=== PATIENT | female | born 1945 | race Caucasian/White ===

== ENCOUNTER 2024-03-06 12:58 | Outpatient (AMB) | payer OTHER, SELFPAY ==
[2024-03-06 13:16] VITALS: BP 69/43; PULSE 113; RESP 18; TEMP 33.3; O2SAT 98; BMI 25.0
--- NOTE | 2024-03-06 13:16 | GSCOFFNT_ITS ---
Vital Signs - [facility] 03/06/24 13:16 Height 1.65 m Height Method Stated Weight 68.039 kg Weight Measurement Method Estimated by Patient BMI 25.0 BP 69/43 L Blood Pressure Source Automatic Cuff Blood Pressure Location Right Upper Arm Position Sitting Respiration 18 Pulse 113 H Pulse Source Monitor Temp 91.9 F L Temp Source Temporal Artery Scan Pulse Oximetry (%) 98 Oxygen Delivery Method Room Air Med/Allergies Allergies & Medications Allergies haloperidol Allergy (Severe, Verified 03/06/24 13:18) Confusion naproxen Allergy (Intermediate, Verified 03/06/24 13:18) HIVES fluoxetine Allergy (Unknown, Verified 03/06/24 13:18) ANXIETY Medication Reconciliation aspirin 81 mg tablet,delayed release 81 mg PO QDAY 11/13/22 [History Confirmed 03/06/24] loratadine 10 mg tablet 10 mg PO QDAY 11/13/22 [History Confirmed 03/06/24] divalproex 250 mg tablet,delayed release (Depakote) 250 mg PO HS 12/18/23 [History Confirmed 03/06/24] donepezil 10 mg tablet 10 mg PO HS 12/18/23 [History Confirmed 03/06/24] ferrous sulfate 325 mg (65 mg iron) tablet (FeroSul) 325 mg PO BID 12/18/23 [History Confirmed 03/06/24] levothyroxine 137 mcg tablet 137 mcg PO QDAY 12/18/23 [History Confirmed 03/06/24] memantine 10 mg tablet 10 mg PO BID 12/18/23 [History Confirmed 03/06/24] montelukast 10 mg tablet 10 mg PO HS 12/18/23 [History Confirmed 03/06/24] multivitamin 1 tab PO QDAY 12/18/23 [History Confirmed 03/06/24] nortriptyline 10 mg capsule 10 mg PO HS 12/18/23 [History Confirmed 03/06/24] pantoprazole 40 mg tablet,delayed release 40 mg PO QDAY 01/19/24 [History Confirmed 03/06/24] bisacodyl 10 mg rectal suppository (Dulcolax (bisacodyl)) 10 mg CO Q72H PRN Constipation 01/24/24 [History Confirmed 03/06/24] calcium carbonate 500 mg PO Q6HR PRN Acid Reflux 01/24/24 [History Confirmed 03/06/24] lidocaine 5 % topical cream 1 applic topical Q12HR PRN Pain 01/24/24 [History Confirmed 03/06/24] magnesium hydroxide 400 mg/5 mL oral suspension (Milk of Magnesia) 30 ml PO Q72H PRN Constipation 01/24/24 [History Confirmed 03/06/24] ondansetron HCl 8 mg tablet 8 mg PO Q6HR PRN Nausea And Vomiting 01/24/24 [History Confirmed 03/06/24] oxycodone-acetaminophen 10 mg-325 mg tablet 1 tab PO Q4H PRN Severe Pain (Scale Score 7-10) 01/24/24 [History Confirmed 03/06/24] zolpidem 5 mg tablet (Ambien) 5 mg PO HS 01/24/24 [History Confirmed 03/06/24] acetaminophen 325 mg tablet 650 mg PO Q4H PRN Fever Or Pain 02/15/24 [History Confirmed 03/06/24] ascorbic acid (vitamin C) 500 mg tablet (Vitamin C) 500 mg PO BID 02/15/24 [History Confirmed 03/06/24] MA Intake Visit Data Collection New Patient or Established: Established Patient (seen at [facility] within 3 years) Seen by Clinical Staff ONLY (RN/MA): No Pain Present Currently: No Manager Functional Required: No PCP or OBGYN visit in last 3 months: Yes Hx Now: No Do You Feel Safe at Home: Yes Authorities Contacted: N/A Smoking Status Smoking Status: Never smoker Immunization / Flu Flu Vaccine in the Last 12 Months: No Flu Vaccine Exclusion Criteria: No Exclusion Criteria Past Medical History Past Medical History NEUROLOGIC: Positive Dementia, Meningitis and Migraine; Negative Neurological Disorders or Seizures CARDIAC: Positive Cardiac Disorders, Congestive Heart Failure and Hypertension RESPIRATORY: Positive Sleep Apnea; Negative Chronic Obstructive Pulmonary Disease (COPD) or Asthma GASTROINTESTINAL: Positive Pancreatitis, Gall Bladder Disease, Diverticulosis, Hiatal Hernia, Gastroesophageal Reflux Disease and Obesity GENITOURINARY: Negative Genitourinary Disorders or Renal Disease REPRODUCTIVE: Positive Previous Pregnancies; Negative Endometriosis or Pelvic Inflammatory Disease MUSCULOSKELETAL: Positive Fibromyalgia ENDOCRINE: Positive Endocrine Disorders, Hypothyroidism and Syndrome of Inappropriate Antidiuretic Hormone (SIADH); Negative Diabetes Mellitus Type 1 or Diabetes Mellitus Type 2 HEMATOLOGIC: Positive Anemia; Negative Blood Disorders or Sickle Cell Disease PSYCHO/SOCIAL: Positive Bipolar Disorder, Depression and Anxiety OTHER HISTORY: Positive Chicken Pox; Negative Autoimmune Disease, Blood Transfusions, Blood Transfusion Reaction, Anesthesia Reactions, Organ Transplant or Cancer Family History FAMILY HISTORY: Positive Family Psychiatric Problems and Family Surgery; Negative Family Neurologic Problems, Family Respiratory Disorders, Family Cardiac Disorders, Family Gastrointestinal Problems, Family Cancer or Family Anesthesia Reaction Surgical History SURGICAL: Positive Hysterectomy; Negative Thyroidectomy or Organ Transplant Social History SMOKING STATUS: Smoking status: Never smoker ALCOHOL: Alcohol Intake: Never HOUSING: Housing: House LIVES WITH: Lives With: Children HPI HPI Narrative 78F with HTN, CHF, hypothyroidism presenting with abdominal pain and CT findings concerning for a cecal mass, s/p exploratory laparotomy, right hemicolectomy and diverting ileostomy (due to fecal contamination) 12/19, here for planned follow u p. Pt was discharged from [facility] this past Wednesday and she has been doing well at home, denies any pain, is eating without any nausea although she felt her appetite was decreased at the SNF. The midline wound is no longer requiring any dressing. Daughter is caring for her and would like physical therapy if possible as she reports pt is weak and has difficulty ambulating ROS Review of Systems Systems Reviewed: All systems reviewed, normal except as documented Objective/Exam General General Appearance: alert, cooperative and well groomed Resp Respiratory exam: Absent respiratory distress Abdominal Abdominal exam: Present soft, incision (midline incision well-healed with no erythema, no fluctuance or tenderness) and other (ileostomy pink with minimal surrounding erythema); Absent distention or tenderness Assessment & Plan Diagnosis / Problem List (1) Mass of cecum: Status: Acute Assessment & Plan: 78F with HTN, CHF, hypothyroidism presenting with abdominal pain and CT findings concerning for a cecal mass, s/p exploratory laparotomy, right hemicolectomy and diverting ileostomy (due to fecal contamination) 12/19, with postop wound complications but now recovering well overall Plan: F/u CT AP After that will discuss ileostomy reversal (2) Ileostomy present: Status: Acute Assessment & Plan: Pt encouraged to drink more water/juice than ileostomy output Orders: Orders CT abdomen pelvis w con 2 Weeks Referrals Physical Therapy - Referral Advanced Care Planning Advance care planning discussed with:: patient Office Procedures GNS Level of Care Nursing/Assessment Patient Status: Established Patient Nursing Assessment/Reassesment: Medication Reconciliation, Update PMH in EMR and Vital Signs Coordination of Care: Complex Care and Chronic Disease 1-5, Education Complex Pt/Fam, Consent,records obtained, informed consent and Staff clarify orders Established Patient Charge Established Patient Point Assignment: 90 Established Patient Point Charge: Level 3 (80-115) Patient Portal Questionaires Social History Living Situation History Housing: House Tobacco History Smoking Status: Never smoker Alcohol History Alcohol Intake: Never Domestic Abuse History Do You Feel Safe at Home: Yes Review of Systems Report any current symptoms Only answer those that you have currently: Past Medical History Past Medical History Have you ever been diagnosed with any of the following: Neurological Problems Dementia: Yes Meningitis: Yes Seizures: No Migraine: Yes Cardiology Problems Congestive Heart Failure: Yes Hypertension: Yes Respiratory Problems Chronic Obstructive Pulmonary Disease (COPD): No Asthma: No Sleep Apnea: Yes Stomache/Intestinal Problems Pancreatitis: Yes Gall Bladder Disease: Yes Diverticulosis: Yes Hiatal Hernia: Yes Gastroesophageal Reflux Disease: Yes Obesity: Yes Genital/Urinary Problems Renal Disease: No Reproductive Problems Endometriosis: No Pelvic Inflammatory Disease: No Previous Pregnancies: Yes Musculoskeletal Problems Fibromyalgia: Yes Endocrine Problems Diabetes Mellitus Type 1: No Diabetes Mellitus Type 2: No Hypothyroidism: Yes Syndrome of Inappropriate Antidiuretic Hormone: Yes Blood Problems Anemia: Yes Sickle Cell Disease: No Psychologic Problems Bipolar Disorder: Yes Depression: Yes Anxiety: Yes Other Problems Autoimmune Disease: No Blood Transfusions: No Blood Transfusion Reaction: No Anesthesia Reactions: No Organ Transplant: No Chicken Pox: Yes Cancer: No Surgical History Hysterectomy: Yes Thyroidectomy: No
== END 2024-03-06 13:54 | disposition home or self-care (01) ==
LOC: HODSRG 12:58
PROVIDERS: PCP Family Medicine; Referring Provider Family Medicine; Supervising Provider Surgery; Visit Provider Surgery
DX: Z48.815 Encounter for surgical aftercare following surgery on the digestive system (principal); Z93.2 Ileostomy status
CPT/HCPCS: 99213; G0463

== ENCOUNTER 2024-03-21 00:27 | Inpatient (IN) | payer OTHER, MEDICARE, SELFPAY ==
[2024-03-21] VITALS (36 sets, daily range): BP systolic 98–158; BP diastolic 42–84; PULSE 66–111; RESP 12–90; TEMP 35.3–36.7; O2SAT 92–100; BMI 25.0
--- NOTE | 2024-03-21 | XR_ITS ---
Ultrasound-guided needle placement right internal jugular vein Temporary dialysis catheter insertion, percutaneous Fluoroscopy AP chest, portable, single view. Date and time of procedure: March 21, 2024 1413 hours INDICATIONS: Need for dialysis for renal failure Informed consent provided Technique: A timeout was completed verifying correct patient, procedure, site, positioning, and special equipment if applicable. The patient was placed in a dependent position appropriate for dialysis catheter placement based on the vein to be cannulated. The patient'sright neck was prepped and draped in sterile fashion. Maximum Sterile Barrier Technique used including cap, mask, sterile gown, sterile gloves, and sterile full body drape. If ultrasound technique used: sterile gel and sterile probe covers. Hand Hygiene performed using proper scrub, soap and water, or alcohol-based hand rub. 1% lidocaine was used to anesthetize the surrounding skin area Site right portable apparatus utilized to confirm patency of the right internal jugular vein Utilizing ultrasonographic guidance successful 21-gauge single puncture right internal jugular vein. Ultrasound images were recorded and stored. Vessel micropuncture was performed with 21-gauge needle. 0.18 wire guide is introduced into the vein. 0.18 wire is introduced into the vena cava under fluoroscopy. 5 Finnish catheter placed over the wire guide followed by a 0.35 wire guide through the 5 Finnish catheter Dilator is placed over the wire guide followed by the 14 Finnish 15 cm temporary dialysis catheter, tip in the superior vena cava under fluoroscopic guidance in satisfactory position. The catheter is sutured in place to the skin and a sterile dressing applied. Perfusion to the extremity distal to the point of catheter insertion is checked and found to be adequate Attending radiologist was present for the entire procedure Estimated blood loss2 cc. The patient tolerated the procedure well and there were no complications Impression: Successful ultrasound-guided needle placement right internal jugular vein Successful temporary tunneled dialysis catheter insertion, percutaneous Fluoroscopy 0.1 minute radiation dose 0.65 milligray 1 spot fluoroscopic chest film. AP chest performed at completion procedure demonstrates satisfactory position dialysis catheter. May use dialysis catheter.
--- NOTE | 2024-03-21 01:22 | EDNOTE_ITS ---
Nausea/Vomit./Diarrhea-RME/HPI General Chief complaint: Nausea/Vomiting/Diarrhea Stated complaint: NAUSEA, VOMITING Time Seen by Provider: 03/21/24 01:06 Source: patient, family and EMS Arrival date/time: 03/21/24 00:27 Mode of arrival: EMS Limitations: no limitations RME / HPI RME / HPI Narrative: Dr. Murphy?s Main ED Evaluation: 78-year-old female who has limited history as she is very lethargic appearing and not very conversive. She notes, nausea and vomiting without abdominal pain. She has a ileostomy of where she does not feel she?s had empty the bag for the last day. She?s quite lethargic and unable to answer further questions Related Data Home Medications ?Medication ?Instructions ?Recorded ?Confirmed aspirin 81 mg tablet,delayed 81 mg PO QDAY 11/13/22 03/06/24 release loratadine 10 mg tablet 10 mg PO QDAY 11/13/22 03/06/24 divalproex 250 mg tablet,delayed 250 mg PO HS 12/18/23 03/06/24 release (Depakote) donepezil 10 mg tablet 10 mg PO HS 12/18/23 03/06/24 ferrous sulfate 325 mg (65 mg 325 mg PO BID 12/18/23 03/06/24 iron) tablet (FeroSul) levothyroxine 137 mcg tablet 137 mcg PO QDAY 12/18/23 03/06/24 memantine 10 mg tablet 10 mg PO BID 12/18/23 03/06/24 montelukast 10 mg tablet 10 mg PO HS 12/18/23 03/06/24 multivitamin 1 tab PO QDAY 12/18/23 03/06/24 nortriptyline 10 mg capsule 10 mg PO HS 12/18/23 03/06/24 pantoprazole 40 mg tablet,delayed 40 mg PO QDAY 01/19/24 03/06/24 release bisacodyl 10 mg rectal suppository 10 mg HI Q72H PRN Constipation 01/24/24 03/06/24 (Dulcolax (bisacodyl)) calcium carbonate 500 mg PO Q6HR PRN Acid Reflux 01/24/24 03/06/24 lidocaine 5 % topical cream 1 applic topical Q12HR PRN Pain 01/24/24 03/06/24 magnesium hydroxide 400 mg/5 mL 30 ml PO Q72H PRN Constipation 01/24/24 03/06/24 oral suspension (Milk of Magnesia) ondansetron HCl 8 mg tablet 8 mg PO Q6HR PRN Nausea And 01/24/24 03/06/24 Vomiting oxycodone-acetaminophen 10 mg-325 1 tab PO Q4H PRN Severe Pain 01/24/24 03/06/24 mg tablet (Scale Score 7-10) zolpidem 5 mg tablet (Ambien) 5 mg PO HS 01/24/24 03/06/24 acetaminophen 325 mg tablet 650 mg PO Q4H PRN Fever Or Pain 02/15/24 03/06/24 ascorbic acid (vitamin C) 500 mg 500 mg PO BID 02/15/24 03/06/24 tablet (Vitamin C) Allergies Allergy/AdvReac Type Severity Reaction Status Date / Time haloperidol Allergy Severe Confusion Verified 03/06/24 13:18 naproxen Allergy Intermediate HIVES Verified 03/06/24 13:18 fluoxetine Allergy Unknown ANXIETY Verified 03/06/24 13:18 Review of Systems Review of Systems Systems Reviewed: All systems reviewed, normal except as documented Past Medical History Past Medical History NEUROLOGIC: Positive Dementia, Meningitis and Migraine; Negative Neurological Disorders or Seizures CARDIAC: Positive Cardiac Disorders, Congestive Heart Failure and Hypertension RESPIRATORY: Positive Sleep Apnea; Negative Chronic Obstructive Pulmonary Disease (COPD) or Asthma GASTROINTESTINAL: Positive Pancreatitis, Gall Bladder Disease, Diverticulosis, Hiatal Hernia, Gastroesophageal Reflux Disease and Obesity GENITOURINARY: Negative Genitourinary Disorders or Renal Disease REPRODUCTIVE: Positive Previous Pregnancies; Negative Endometriosis or Pelvic Inflammatory Disease MUSCULOSKELETAL: Positive Musculoskeletal Disorders and Fibromyalgia ENDOCRINE: Positive Endocrine Disorders, Hypothyroidism and Syndrome of Inappropriate Antidiuretic Hormone (SIADH); Negative Diabetes Mellitus Type 1 or Diabetes Mellitus Type 2 HEMATOLOGIC: Positive Anemia; Negative Blood Disorders or Sickle Cell Disease PSYCHO/SOCIAL: Positive Bipolar Disorder, Depression and Anxiety OTHER HISTORY: Positive Chicken Pox; Negative Autoimmune Disease, Blood Transfusions, Blood Transfusion Reaction, Anesthesia Reactions, Organ Transplant or Cancer Family History FAMILY HISTORY: Positive Family Psychiatric Problems and Family Surgery; Negative Family Neurologic Problems, Family Respiratory Disorders, Family Cardiac Disorders, Family Gastrointestinal Problems, Family Cancer or Family Anesthesia Reaction Surgical History SURGICAL: Positive Tonsillectomy, Abdominal Surgery and Hysterectomy; Negative Cardiac Surgery, Endocrine Surgery, Thyroidectomy or Organ Transplant Social History SMOKING STATUS: Never smoker SUBSTANCE USE: does not use ED Exam Narrative Physical exam: GENERAL APPEARANCE: AxOx4, moderately ill, lethargic. HEENT: NC, AT. Extremely dry mucous membrane. EOMI, clear conjunctiva, oropharynx clear. Dry OM. NECK: Supple without lymphadenopathy. No stiffness or restricted ROM. HEART: Normal rate and regular rhythm, normal S1/S1, no m/r/g LUNGS: CTAB, moving air well. No crackles or wheezes are heard. ABDOMEN: Soft, nontender, nondistended no bowel sounds noted,scant brown colored stool in her ileostomy bag, no air BACK: No midline C/T/L spine pain or deformity, No CVAT, no obvious deformity. EXTREMITIES: Without cyanosis, clubbing or edema. MUSCULOSKELETAL: FROM of all major joints, no chest tenderness NEUROLOGICAL: Grossly nonfocal. Awake and alert to person only, moving all 4 extremities. CN not formally tested but appear grossly intact. Observed to ambulate with normal gait. Skin: Warm and dry without any rash. General Limitations: Present no limitations Course Course Course Narrative: 0206: Sepsis alert initiated. Orders made at this time are congruent with ED Adult Sepsis Order List. Re-evaluation is to be completed. 0236: Sepsis reassessment performed consisting of lab review, vitals, physical exam including auscultation of heart, lungs, and visual evaluation of capillary refills, mucosal membranes and extremities. 0500: Re-evaluated. Patient clinically looks much better. She's less lethargic, more active after 2 L of normal saline. We will be giving her another 500cc bolus. 0515: Dr. Flynn made aware of the patient?s HPI, PMHx, lab and/or radiology results. Discussed treatment plan. Will consult an admission to the hospitalist. 0523: Dr. Frazier made aware of the patient?s HPI, PMHx, lab and/or radiology results. Treatment plan was discussed. Will admit for further evaluation and management. Accepts patient for admission. Quality Measures Current suspected stage: sepsis Possible source: skin/soft tissue Blood cultures ordered: yes Antibiotic ordered: Yes Pertinent labs: 03/21/24 03/21/24 03/21/24 01:22 02:50 04:27 Lactic Acid 3.7 H mMol/L 1.7 mMol/L (0.4-2.0) (0.4-2.0) Procalcitonin 0.44 ng/ml 0.51 H ng/ml (0.0-0.49) (0.0-0.49) sepsis and none Orders Category Date Time Status Admit to Inpatient Status Routine Admission 03/21/24 05:19 Active Patient Condition Routine Admission 03/21/24 05:19 Ordered Activity as Tolerated Routine Care 03/21/24 05:20 Ordered EKG (ED ONLY) *Do not use* NOW Care 03/21/24 02:08 Completed [place] [Urinary Catheter] QS Care 03/21/24 03:38 Active [place] to [place] Routine Care 03/21/24 03:37 Ordered Notify provider NEEDED Care 03/21/24 05:19 Active Consult to General Surgery Stat Cons 03/21/24 05:20 Ordered Consult to Nephrology Routine Cons 03/21/24 05:21 Ordered Diet Dysphagia 1- Pureed Diet 03/21/[address] chest abdomen pelvis wo Stat Exams 03/21/24 03:[address] head/brain wo con Stat Exams 03/21/24 03:35 Taken EKG (ED Only) Stat Exams 03/21/24 02:08 Ordered XR chest 1V Stat Exams 03/21/24 02:08 Taken ABG [Arterial Blood Gas] Stat Lab 03/21/24 04:01 Ordered Basic Metabolic Panel AM DRAW Lab 03/22/24 05:00 Ordered Basic Metabolic Panel AM DRAW Lab 03/23/24 05:00 Ordered Basic Metabolic Panel AM DRAW Lab 03/24/24 05:00 Ordered Blood Culture (Lab) Stat Lab 03/21/24 03:45 Received CBC AM DRAW Lab 03/22/24 05:00 Ordered CBC AM DRAW Lab 03/23/24 05:00 Ordered CBC AM DRAW Lab 03/24/24 05:00 Ordered CBC Stat Lab 03/21/24 01:22 Completed CMP [Comprehensive Metabolic Panel] Stat Lab 03/21/24 02:50 Completed Lactate (Lactic Acid) Stat Lab 03/21/24 01:22 Completed Lactic Acid [Lactate (Lactic Acid)] Stat Lab 03/21/24 04:27 Completed MG [Magnesium] Stat Lab 03/21/24 04:27 Completed Phosphorous Stat Lab 03/21/24 04:27 Completed Procalcitonin Stat Lab 03/21/24 02:50 Completed Procalcitonin Stat Lab 03/21/24 04:27 Completed Troponin I Stat Lab 03/21/24 02:50 Completed Urinalysis Stat Lab 03/21/24 03:40 Completed Acetaminophen Tab [Tylenol Tab] Med 03/21/24 05:19 Active 650 mg PO Q6H PRN Heparin Inj Med 03/21/24 06:00 Active 5,000 unit SC Q8HR Magnesium Sulfate 2 GM Ivpb [Magnesium Sulfate Ivpb] Med 03/21/24 05:18 Active 2 gm in 50 ml IV X1 Ondansetron Inj [Zofran Inj] Med 03/21/24 01:15 Discontinued 4 mg IV X1 ONE Sodium Chloride 0.9% 1000 ml [Ns] 1,000 ml Med 03/21/24 05:30 Active IV 75 mls/hr Sodium Chloride 0.9% 1000 ml [Ns] 1,000 ml Med 03/21/24 01:15 Discontinued IV 999 mls/hr Sodium Chloride 0.9% 1000 ml [Ns] 1,000 ml Med 03/21/24 02:08 Discontinued IV 999 mls/hr Sodium Chloride 0.9% 500 ml [Ns] 500 ml Med 03/21/24 04:52 Discontinued IV 999 mls/hr cefTRIAXone/D5w 1gm IV premix [Rocephin/D5w 1gm IV Med 03/21/24 03:54 Discontinued premix] 50 ml IV X1 Code Status Routine Oth 03/21/24 05:19 Ordered Vital Signs Vital signs: Vital Signs Temperature 95.7 F L 03/21/24 00:50 Pulse Rate 96 03/21/24 00:50 Respiratory Rate 16 03/21/24 00:50 Blood Pressure 142/57 H 03/21/24 00:50 Pulse Oximetry (%) 99 03/21/24 00:50 Oxygen Delivery Method Room Air 03/21/24 00:50 Procedures -ED EKG Interpretation #1: Date of EK03/21/24 Time of EK:44 Rate: 92 Interpretation: Interpreted by me EKG Impression: Normal sinus rhythm, No acute ST-T changes, Normal intervals and Normal axis Nausea/Vomiting/Diarrhea MDM Narrative MDM Narrative:: Scribe Attestation: I, Conjellyfer Jim, am scribing for and in the presence of Dr. Murphy. Provider Notation: Although this document has been carefully reviewed, there may still be some phonetic and other typographical errors. These errors are purely grammatical due to imperfections in the software program and should not be construed in any way to compromise the substance of the patient's medical care during this visit. Patient data External records reviewed:: [facility] previous records and EMS form Clinical information provided by:: patient, EMS and family Social determinants that could affect healthcare access:: none Patient has the following chronic illnesses:: hypothyroidism, hypertension, depression, dementia, recurrent UTI, JACKIE, asthma, sleep, status post right hemicolectomy and diverting ileostomy How is presenting disease/condition affected by chronic disease/condition?: exacerbated by Evaluation data The following diagnostics were reviewed and interpreted by me:: lab results and radiology exam(s) Lab and/or radiology exams considered but not ordered:: None Interpretation Summary: See narrative CT scan of the head without intravenous contrast (axial sections with sagittal and coronal reformats) March 21, 2024 at 0402 hours Clinical history: Lethargy. Comparison: No prior study is available for comparison. Findings: There is no evidence of intracranial hemorrhage, mass effect or midline shift. There are periventricular white matter hypodensities, compatible with chronic small vessel ischemia. There is moderate volume loss. The calvarium is unremarkable. The mastoid air cells and the visualized paranasal sinuses are clear. Impression: No evidence of intracranial hemorrhage, mass effect or midline shift. Periventricular chronic small vessel ischemia and volume loss. Aspect score 10. Report Electronically Signed By: Roger Blakely 03/21/2024 5:02:20 AM [EST] CT scan of the chest, abdomen and pelvis without intravenous contrast (axial sections with sagittal and coronal reformats). March 21, 2024 at 0403 hours Clinical History: Abdominal pain, altered mental status. Comparison: No prior study is available for comparison. Findings: The lungs are clear. There is no pleural effusion or pneumothorax. The aorta is within normal limits for age on this noncontrast study. No evidence of mediastinal mass or lymphadenopathy. There is no pericardial effusion. The liver, spleen, pancreas, adrenals and kidneys are unremarkable on this noncontrast study. Status post cholecystectomy. No evidence of bowel obstruction. No evidence of appendicitis. [place] catheter in place. Air within the urinary bladder. Urinary bladder wall thickening. There is no free fluid or free air. Degenerative changes of the imaged portions of the spine. No acute fractures. Chronic multilevel disc disease. Coronary arteries calcifications. Status post bowel resection. Right lower quadrant ostomy. Questionable collection in the anterior abdominal wall, limited evaluation on th is noncontrast enhanced study (axial image 255 of 367), measuring 2.7 x 2.1 cm. Questionable right lower quadrant intra-abdominal abscess versus small bowel, limited evaluation of this study without oral and IV contrast. Diverticulosis of the colon. Status post hysterectomy. Impression: 1. Questionable collection in the anterior abdominal wall, limited evaluation on this noncontrast enhanced study (axial image 255 of 367). Possibly an abscess. 2. Questionable right lower quadrant intra-abdominal abscess versus small bowel, limited evaluation of this study without oral and IV contrast. 3. Possible cystitis. Please, correlate clinically. 4. Coronary arteries calcifications. If acute myocardial infarction is clinically suspected consider correlation with troponin. Report Electronically Signed By: Roger Blakely 03/21/2024 5:06:49 AM [EST] Medications / Prescriptions Medications / Prescriptions considered but not ordered:: None Medication administrations:: Medication Administration History Acetaminophen (Acetaminophen 325 Mg Tablet) 650 mg PO Q6H PRN PRN Reason: Fever >101.5 Stop: 04/20/24 05:18 Heparin Sodium (Porcine) (Heparin Sod Inj 5000 Unit/Ml Vial) 5,000 unit SC Q8HR [facility] Stop: 04/04/24 05:59 Magnesium Sulfate (Magnesium Sulfate Ivpb) 2 gm in 50 mls @ 25 mls/hr IV X1 ONE Stop: 03/21/24 07:17 Last Admin: 03/21/24 05:37 Dose: 25 mls/hr Documented By: PEE Sodium Chloride (Ns) 1,000 mls @ 75 mls/hr IV .[id number] [facility] Stop: 03/21/24 18:49 Last Admin: 03/21/24 05:37 Dose: 75 mls/hr Documented By: PEE Piperacillin/Tazobactam/Dextrose (Zosyn) 2.25 gm in 50 mls @ 100 mls/hr IV Q8HR [facility] Stop: 03/28/24 05:26 Piperacillin/Tazobactam/Dextrose (Zosyn) 2.25 gm in 50 mls @ 100 mls/hr IV X1 ONE Stop: 03/21/24 05:59 Piperacillin Sod/Tazobactam (Sod 2.25 gm/ Sodium Chloride) 50 mls @ 100 mls/hr IV X1 ONE Stop: 03/21/24 06:09 Levothyroxine Sodium (Levothyroxine Sodium 125 Mcg Tablet) 137 mcg PO ACBR ASHISH Stop: 04/20/24 05:59 Discontinued Medications Sodium Chloride (Ns) 1,000 mls @ 999 mls/hr IV .Q1H1M ONE Stop: 03/21/24 02:15 Last Infusion: 03/21/24 02:19 Dose: Infused Documented By: Admin: 03/21/24 01:44 Dose: 999 mls/hr Documented By: PEE Sodium Chloride (Ns) 1,000 mls @ 999 mls/hr IV .Q1H1M ONE Stop: 03/21/24 03:08 Last Infusion: 03/21/24 03:24 Dose: Infused Documented By: Admin: 03/21/24 02:18 Dose: 999 mls/hr Documented By: PEE Ceftriaxone Sodium/Dextrose (Rocephin/D5w 1gm Iv Premix) 50 mls @ 100 mls/hr IV X1 ONE Stop: 03/21/24 04:23 Last Infusion: 03/21/24 05:39 Dose: Infused Documented By: Admin: 03/21/24 04:59 Dose: 100 mls/hr Documented By: PEE Sodium Chloride (Ns) 500 mls @ 999 mls/hr IV .Q31M ONE Stop: 03/21/24 05:22 Last Infusion: 03/21/24 05:39 Dose: Infused Documented By: Admin: 03/21/24 04:59 Dose: 999 mls/hr Documented By: PEE Ondansetron HCl (Ondansetron Inj 2 Mg/Ml Inj 2 Ml) 4 mg IV X1 ONE; Protocol Stop: 03/21/24 01:16 Last Admin: 03/21/24 01:44 Dose: 4 mg Documented By: PEE As above Consultations Consultation(s) initiated? (list below): Yes Consultation #1 (Physician, Specialty, Details): See narrative Diagnosis Nausea Differential Diagnosis: traveler's diarrhea, food poisoning, gastroenteritis, drug-induced nausea and vomiting and other (Small bowel obstruction) Most likely diagnosis given after review of the tests above:: Acute kidney injury, severe dehydration, hyponatremia, hypochloremia Admission Indicated Admission indicated?: indicated Admission Request Was there a request for admission?: Yes Admission Attestation Admission request attestation: Discussed case with [] from Hospitalist service regarding admission. Discussed patients ED course, exam findings, labs, and radiology results. The Hospitalist [agrees,declines] to accept the patient for admission. Disposition Plan Disposition Plan: Admit Critical Care Time Critical Care Time Critical Care Time: Yes Total Critical Care Time (min.): 60 Attestation: The high probability of sudden, clinically significant deterioration in the patient?s condition required the highest level of my preparedness to intervene urgently. The services I provided to this patient were to treat and/or prevent clinically significant deterioration. Services included the following: chart data review, reviewing nursing notes and/or old charts, documentation time, client consultant collaboration regarding findings and treatment options, medication orders and management, direct patient care, vital sign assessments and ordering, interpreting and reviewing diagnostic studies and lab tests. Aggregate critical care time includes only time during which I was engaged in work directly related to the patient?s care, as described above, whether at bedside or elsewhere in the Emergency Department. It did not include time spent performing other reported procedures or the services of residents, students, nurses or physician assistants. Discharge Plan Plan Patient Disposition: Admit Acute Care w/in Hospital Problem List Clinical Impression: Hyponatremia, MAKENZIE (acute kidney injury), Severe dehydration, Hypochloremia
[2024-03-21] MEDS: SODIUM CHLORIDE 0.9% 1000 ML 1,000 ML 999 ML IV ×2 (01:44→02:18)
[2024-03-21] MEDS: ONDANSETRON INJ 2 MG/ML INJ 2 ML 4 MG IV (01:44)
[2024-03-21 01:49] LABS: Lactate (Lactic Acid) 3.7 mMol/L (0.4-2.0)
--- NOTE | 2024-03-21 01:52 | PC.NURSE ---
started warming measures and placed Pt on a bearhugger Per dr. Murphy
[2024-03-21 01:53] LABS: Basophils # (Auto) 0.1 Thou/mm3 (0.0-0.2); Basophils % (Auto) 0 % (0-2.5); Eosinophils % (Auto) 0 % (0-10); Hematocrit 37.2 % (36.0-46.0); Hemoglobin 12.6 g/dL (12.0-16.0); Immature Granulocytes % (Auto) 1 % (0-0); Lymphocytes # (Auto) 1.5 Thou/mm3 (1.0-4.8); Lymphocytes % (Auto) 7 % (10-50); Mean Corpuscular HGB Conc 33.9 g/dl (31.0-37.0); Mean Corpuscular Hemoglobin 28.1 pg (25.0-35.0); Mean Corpuscular Volume 83 fL (80-100); Monocytes # (Auto) 0.7 Thou/mm3 (0.0-0.8); Monocytes % (Auto) 4 % (0-12); Neutrophils # (Auto) 18.2 Thou/mm3 (1.8-7.7); Neutrophils % (Auto) 87 % (37-80); Nucleated Red Blood Cell % 0 /100 WBC (0); Platelet Count 364 Thou/mm3 (140-440); RDW Standard Deviation 45.4 fL (36.4-46.3); Red Blood Count 4.49 Miln/mm3 (4.00-5.20)
[2024-03-21 01:54] LABS: White Blood Count 20.9 Thou/mm3 (3.6-11.0)
--- NOTE | 2024-03-21 01:55 | PC.NURSE ---
No sepsis alert at this time per dr. Murphy
--- NOTE | 2024-03-21 02:08 | XR_ITS ---
Examination: AP chest single view Technique: AP portable semiupright chest single view Exam date and time: March 21, 2024 0226 hrs. Comparison 01/17/2024 Indications: Sepsis protocol, sepsis today Findings: Normal heart size No lobar pneumonia, no pulmonary edema The osseous structures are intact Impression: No pneumonia identified
--- NOTE | 2024-03-21 02:08 | EKG_ITS ---
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
[2024-03-21 03:28] LABS: Alanine Aminotransferase 8 U/L (10-49); Albumin/Globulin Ratio 1.1 (1.2-2.2); Alkaline Phosphatase 243 U/L (46-116); Anion Gap 13 (7-16); Aspartate Amino Transferase 14 U/L (0-34); BUN/Creatinine Ratio 13 Ratio (12-20); Bilirubin,Total 0.3 mg/dL (0.3-1.2); Calcium 7.5 mg/dL (8.3-10.6); Calcium (Corrected) 8.3 mg/dL (8.5-10.1); Carbon Dioxide 21.7 mMol/L (20.0-31.0); Chloride 88 mMol/L (98-107); Creatinine (Component) 9.5 mg/dL (0.6-1.3); Estimated Creatinine Clearance 4.3 mL/min (>60); Globulin 2.8 gm/dL (2.3-3.5); Glucose 107 mg/dL (74-106); Osmolality,Calculated 286 (275-295); Potassium 5.5 mMol/L (3.4-5.1); Procalcitonin 0.44 ng/ml (0.0-0.49); Sodium 123 mMol/L (136-145); Total Protein 5.8 gm/dL (5.7-8.2); eGFR 4 See Note
--- NOTE | 2024-03-21 03:35 | XR_ITS ---
Examination: CT chest, without intravenous contrast. CT abdomen, without intravenous contrast. CT pelvis, without intravenous contrast. 2-D sagittal and coronal reconstructions. 3-D reconstructions. Date and time of exam:March 21, [address] abdomen pelvis February 14, 2024 Indications: Shortness of breath nausea vomiting abdominal pain lethargy altered mental status, colostomy history, abnormal edema surrounding small bowel loops in the left upper abdomen on CT abdomen pelvis February 14, 2024 CTDI vol (mgy) 12.11 DLP (MGycm)925 Technique: Multiple CT images, 3.0 mm slice thickness, obtained chest, abdomen, pelvis, with the high-resolution 64 slice scanner.. Sagittal and coronal 2-D reconstructions are obtained. 3-D reconstructions Low dose protocols were performed. One or more of the following dose reduction techniques were used; automated exposure control, adjustment of the mA and/or KV according to patient size, use of iterative reconstruction technique. Findings: Thoracic aortic calcification no aneurysmal dilatation Main pulmonary artery segment 34 mm Heavy calcification left anterior descending coronary artery Mild enlargement cardiac contour No paratracheal tracheobronchial or bronchopulmonary adenopathy No pneumonia or pulmonary edema No focal liver or splenic lesion Absent gallbladder No pancreatic or adrenal mass Moderate bilateral renal parenchymal scar formation Right ileostomy anterior abdominal wall mass with irregular margins, axial image 252 measuring 2.8 x 2.2 cm below the ileostomy Aggregate of small bowel versus abscess in the right lower abdomen axial image 246 Urinary [place] catheter with air in the urinary bladder Absent uterus Severe osteopenia with advanced lumbar degenerative disc disease upper 4 lumbar levels Impression: Heavy calcification left anterior descending coronary artery Pulmonary artery hypertension Soft tissue mass in the anterior abdominal wall 2.8 x 2.2 cm, differential would include soft tissue tumor mass, abscess Aggregate of small bowel versus abscess in the right lower abdomen poorly defined, at least 4 cm in dimension Recommend this patient return for CT abdomen pelvis post intravenous and post oral contrast
--- NOTE | 2024-03-21 03:35 | XR_ITS ---
Examination: CT brain head without contrast. 2-D sagittal coronal reconstructions Date and time of exam:March 20, 2024 0402 hrs. Indications: Nausea vomiting lethargy altered mental status today Comparison: May 01, 2004 CTDI: vol (mGy):48.20 DLP: (mGycm):975 Technique: Multiple CT axial sections of the brain have been obtained, 5 mm slice thickness. Contrast has not been administered. 2-D sagittal, coronal reconstructions have been obtained Low dose protocols were performed. One or more of the following dose reduction techniques were used; automated exposure control, adjustment of the mA and/or KV according to patient size, use of iterative reconstruction technique. Findings: No significant ventricular enlargement. Intra-axial or extra-axial hemorrhage density is not seen. No mass effect or midline shift Basal cisterns are not remarkable. Fourth ventricle is midline. Cranial vault intact. Impression: Negative for acute hemorrhage, mass effect or midline shift As clinically warranted, brain MRI follow-up would best assess for acute ischemic change
[2024-03-21 03:39] LABS: Blood Urea Nitrogen 121 mg/dL (9-23)
[2024-03-21 03:47] LABS: Collection Type, Urine Clean Catch
[2024-03-21 03:53] LABS: Bacteria,Urine 4+; Bilirubin,Urine Negative (Negative); Blood,Urine 2+ (Negative); Budding Yeast,Urine Present; Clarity,Urine Turbid (Clear/Hazy); Color,Urine Orange (Lt Yel-Yel); Glucose, Urine Negative (Negative); Ketones,Urine Negative (Negative); Leukocyte Esterase,Urine Positive (Negative); Nitrite,Urine Negative (Negative); PH,Urine 5.5 (5.0-7.0); Protein,Urine 2+ (Neg - Trace); RBC,Urine 48 /hpf (0-3); Specific Gravity,Urine 1.018 (1.001-1.035); Squamous Epithelial Cell,Urine 8 /hpf (0-5); WBC,Urine 1551 /hpf (0-5)
[2024-03-21 04:42] LABS: Lactate (Lactic Acid) 1.7 mMol/L (0.4-2.0)
[2024-03-21 04:45] LABS: Reflex Lactate? Y
[2024-03-21] MEDS: cefTRIAXone/D5w 1gm IV premix 50 ML IV (04:59)
[2024-03-21] MEDS: SODIUM CHLORIDE 0.9% 500 ML 500 ML 999 ML IV (04:59)
--- NOTE | 2024-03-21 05:02 | PRELIM_ITS ---
CT scan of the head without intravenous contrast (axial sections with sagittal and coronal reformats) March 21, 2024 at 0402 hours Clinical history: Lethargy. Comparison: No prior study is available for comparison. Findings:There is no evidence of intracranial hemorrhage, mass effect or midline shif t. There are periventricular white matter hypodensities, compatible with chronic small vessel ischemi a. There is moderate volume loss. The calvarium is unremarkable. The mastoid air cells and the visual ized paranasal sinuses are clear.Impression:No evidence of intracranial hemorrhage, mass effect or mi dline shift.Periventricular chronic small vessel ischemia and volume loss.Aspect score 10. Report Patricia ctronically Signed By: Roger Blakely 03/21/2024 5:02:20 AM [EST]
--- NOTE | 2024-03-21 05:07 | PRELIM_ITS ---
CT scan of the chest, abdomen and pelvis without intravenous contrast (axial sections with sagittal a nd coronal reformats). March 21, 2024 at 0403 hours Clinical History: Abdominal pain, altered ment al status.Comparison: No prior study is available for comparison. Findings:The lungs are clear. There is no pleural effusion or pneumothorax. The aorta is within normal limits for age on this noncontras t study. No evidence of mediastinal mass or lymphadenopathy. There is no pericardial effusion.The sergio er, spleen, pancreas, adrenals and kidneys are unremarkable on this noncontrast study.Status post cho lecystectomy.No evidence of bowel obstruction. No evidence of appendicitis.[place] catheter in place. A ir within the urinary bladder. Urinary bladder wall thickening. There is no free fluid or free air.De generative changes of the imaged portions of the spine. No acute fractures. Chronic multilevel disc d isease.Coronary arteries calcifications.Status post bowel resection.Right lower quadrant ostomy.Quest ionable collection in the anterior abdominal wall, limited evaluation on this noncontrast enhanced st udy (axial image 255 of 367), measuring 2.7 x 2.1 cm.Questionable right lower quadrant intra-abdomina l abscess versus small bowel, limited evaluation of this study without oral and IV contrast.Diverticu losis of the colon.Status post hysterectomy.Impression:1. Questionable collection in the anterior abd ominal wall, limited evaluation on this noncontrast enhanced study (axial image 255 of 367). Possibly an abscess.2. Questionable right lower quadrant intra-abdominal abscess versus small bowel, limited evaluation of this study without oral and IV contrast.3. Possible cystitis. Please, correlate clinica lly.4. Coronary arteries calcifications. If acute myocardial infarction is clinically suspected consi lizeth correlation with troponin. Report Electronically Signed By: Roger Blakely 03/21/2024 5:06:49 A M [EST]
[2024-03-21 05:11] LABS: Procalcitonin 0.51 ng/ml (0.0-0.49)
[2024-03-21 05:18] LABS: Magnesium 1.1 mg/dL (1.6-2.6); Phosphorous 10.7 mg/dL (2.4-5.1)
--- NOTE | 2024-03-21 05:36 | ESHP_ITS ---
Documentation for date of: 03/21/24 HPI History of Present Illness History of present illness: Roula Shell is a 78-year-old female with a past medical history of hypothyroidism, hypertension, JACKIE, asthma, depression, dementia, recurrent UTI, and is status post hemicolectomy with ileostomy presents with altered mental status and nausea and vomiting. Patient initially presented to ED with altered mentation and was not able to provide history. Subsequently given 2.5 L of fluids per sepsis protocol and mentation slowly improved. Upon evaluation, patient endorsed 2 to 3 days of nausea and vomiting along with decreased p.o. intake. Also endorses abdominal pain at ileostomy site, decreased ileostomy output, as well as dysuria and cloudy urine but denies fever or chills. Otherwise also denies shortness of breath or chest discomfort. Of note, patient recently discharged on 02/15 for ileostomy leakage/malfunction. ED course: Temp 95.7 ?F, HR 96, BP 142/57, on room air. WBC 20.9, Na 123, K 5.5, Cl 88, BUN 121, Cr 9.5 (BL 1.0), Ca 8.3, Phos 10.7, Mg 1.1, ALP 243, troponin 0.2 UA: Turbid, 8 squamous cells, 1551 WBC, 48 RBC, bacteria and yeast present CT head prelim unremarkable CT A/P prelim: Questionable RLQ intra-abdominal abscess versus small bowel In ED given 3.5 L NS, ceftriaxone x 1, 2 g magnesium IV PMHx: Hypothyroidism, hypertension, JACKIE, asthma, depression, dementia, recurrent UTI Medications: Patient cannot recall SHx: Denies cigarettes, alcohol, illicit drug use PSHx: Right hemicolectomy, diverting ileostomy, hysterectomy Review of Systems Review of Systems Systems Reviewed: All systems reviewed, normal except as documented Exam Vital Signs Temp Pulse Resp BP Pulse Ox O2 Del Method O2 Flow Rate 98.1 F 91 16 116/63 100 Nasal Cannula 2 03/21/24 04:00 03/21/24 04:00 03/21/24 04:00 03/21/24 04:00 03/21/24 04:00 03/21/24 04:00 03/21/24 04:00 Narrative Exam General: AOx2, tremulous, drowsy and slow to respond but in no acute distress. HEENT: NC/AT, mucous membranes moist, bilateral sclera anicteric. Cardiovascular: Tachycardic, regular rhythm, S1/S2 present, no murmurs .appreciated Pulmonary: Clear to auscultation bilaterally, no rales/rhonchi/wheezes. Abdominal: Diverting ileostomy present with some leakage, soft, nondistended. Musculoskeletal: Normal ROM, no peripheral edema. Skin: Warm and dry, intact, no rashes. Neurological: No asterixis. Results: Labs 03/21/24 01:22 03/21/24 08:35 Labs: Short CBC 03/21/24 Range/Units 01:22 WBC 20.9 H (3.6-11.0) Thou/mm3 Hgb 12.6 (12.0-16.0) g/dL Hct 37.2 (36.0-46.0) % Plt Count 364 D (140-440) Thou/mm3 BMP 03/21/24 02:50 Sodium 123 L Potassium 5.5 H Chloride 88 L Carbon Dioxide 21.7 BUN 121 H* Creatinine 9.5 H* Glucose 107 H Calcium 7.5 L Cardiac Enzymes 03/21/24 Range/Units 02:50 Troponin I 0.210 H* (0.0-0.045) ng/mL Liver Function 03/21/24 Range/Units 02:50 Total Bilirubin 0.3 (0.3-1.2) mg/dL AST 14 (0-34) U/L ALT 8 L (10-49) U/L Alkaline Phosphatase 243 H (46-116) U/L Albumin 3.0 L (3.4-4.8) gm/dL Urine 03/21/24 Range/Units 03:40 Urine Color [place] A (Lt Yel-Yel) Urine Clarity Turbid A (Clear/Hazy) Urine pH 5.5 (5.0-7.0) Ur Specific [place] 1.018 (1.001-1.035) Urine Protein 2+ A (Neg - Trace) Urine Glucose (UA) Negative (Negative) Quality Measures Quality Measures sepsis Current suspected stage: sepsis Possible source: skin/soft tissue Blood cultures ordered: yes Antibiotic ordered: Yes and none Advance care planning discussed with:: patient Medications Home Medications and Allergies Home Medications ?Medication ?Instructions ?Recorded ?Confirmed ?Type aspirin 81 mg tablet,delayed 81 mg PO QDAY 11/13/22 03/06/24 History release loratadine 10 mg tablet 10 mg PO QDAY 11/13/22 03/06/24 History divalproex 250 mg tablet,delayed 250 mg PO HS 12/18/23 03/06/24 History release (Depakote) donepezil 10 mg tablet 10 mg PO HS 12/18/23 03/06/24 History ferrous sulfate 325 mg (65 mg 325 mg PO BID 12/18/23 03/06/24 History iron) tablet (FeroSul) levothyroxine 137 mcg tablet 137 mcg PO QDAY 12/18/23 03/06/24 History memantine 10 mg tablet 10 mg PO BID 12/18/23 03/06/24 History montelukast 10 mg tablet 10 mg PO HS 12/18/23 03/06/24 History multivitamin 1 tab PO QDAY 12/18/23 03/06/24 History nortriptyline 10 mg capsule 10 mg PO HS 12/18/23 03/06/24 History pantoprazole 40 mg tablet,delayed 40 mg PO QDAY 01/19/24 03/06/24 History release bisacodyl 10 mg rectal suppository 10 mg DE Q72H PRN Constipation 01/24/24 03/06/24 History (Dulcolax (bisacodyl)) calcium carbonate 500 mg PO Q6HR PRN Acid Reflux 01/24/24 03/06/24 History lidocaine 5 % topical cream 1 applic topical Q12HR PRN Pain 01/24/24 03/06/24 History magnesium hydroxide 400 mg/5 mL 30 ml PO Q72H PRN Constipation 01/24/24 03/06/24 History oral suspension (Milk of Magnesia) ondansetron HCl 8 mg tablet 8 mg PO Q6HR PRN Nausea And 01/24/24 03/06/24 History Vomiting oxycodone-acetaminophen 10 mg-325 1 tab PO Q4H PRN Severe Pain 01/24/24 03/06/24 History mg tablet (Scale Score 7-10) zolpidem 5 mg tablet (Ambien) 5 mg PO HS 01/24/24 03/06/24 History acetaminophen 325 mg tablet 650 mg PO Q4H PRN Fever Or Pain 02/15/24 03/06/24 History ascorbic acid (vitamin C) 500 mg 500 mg PO BID 02/15/24 03/06/24 History tablet (Vitamin C) Allergies Allergy/AdvReac Type Severity Reaction Status Date / Time haloperidol Allergy Severe Confusion Verified 03/06/24 13:18 naproxen Allergy Intermediate HIVES Verified 03/06/24 13:18 fluoxetine Allergy Unknown ANXIETY Verified 03/06/24 13:18 Visit Medications Acetaminophen (Acetaminophen 325 Mg Tablet) 650 mg PO Q6H PRN PRN Reason: Fever >101.5 Stop: 04/20/24 05:18 Heparin Sodium (Porcine) (Heparin Sod Inj 5000 Unit/Ml Vial) 5,000 unit SC Q8HR [facility] Stop: 04/04/24 05:59 Magnesium Sulfate (Magnesium Sulfate Ivpb) 2 gm in 50 mls @ 25 mls/hr IV X1 ONE Stop: 03/21/24 07:17 Sodium Chloride (Ns) 1,000 mls @ 75 mls/hr IV .[id number] [facility] Stop: 03/21/24 18:49 Piperacillin/Tazobactam/Dextrose (Zosyn) 2.25 gm in 50 mls @ 100 mls/hr IV Q8HR [facility] Stop: 03/28/24 05:26 Piperacillin/Tazobactam/Dextrose (Zosyn) 2.25 gm in 50 mls @ 100 mls/hr IV X1 ONE Stop: 03/21/24 05:59 Discontinued Medications Sodium Chloride (Ns) 1,000 mls @ 999 mls/hr IV .Q1H1M ONE Stop: 03/21/24 02:15 Last Infusion: 03/21/24 02:19 Dose: Infused Sodium Chloride (Ns) 1,000 mls @ 999 mls/hr IV .Q1H1M ONE Stop: 03/21/24 03:08 Last Infusion: 03/21/24 03:24 Dose: Infused Ceftriaxone Sodium/Dextrose (Rocephin/D5w 1gm Iv Premix) 50 mls @ 100 mls/hr IV X1 ONE Stop: 03/21/24 04:23 Last Admin: 03/21/24 04:59 Dose: 100 mls/hr Sodium Chloride (Ns) 500 mls @ 999 mls/hr IV .Q31M ONE Stop: 03/21/24 05:22 Last Admin: 03/21/24 04:59 Dose: 999 mls/hr Ondansetron HCl (Ondansetron Inj 2 Mg/Ml Inj 2 Ml) 4 mg IV X1 ONE; Protocol Stop: 03/21/24 01:16 Last Admin: 03/21/24 01:44 Dose: 4 mg Assessment & Plan Plan Roula Shell is a 78-year-old female with a past medical history of hypothyroidism, hypertension, JACKIE, asthma, depression, dementia, recurrent UTI, and is status post hemicolectomy with ileostomy admitted for acute uremic encephalopathy, stage III acute kidney injury, sepsis secondary to UTI versus intra-abdominal abscess. #Acute uremic encephalopathy #Acute kidney injury, stage III Decreased p.o. intake in the last 2 to 3 days with nausea and vomiting and presence of ileostomy, thus likely prerenal. However, given extensive elevation in creatinine and drop in GFR other etiologies cannot be excluded. Initial creatinine 9.5 (BL 1.0), BUN 121. Will have received total of 3.5 L of IVF. ? Nephrology consulted, appreciate recommendations ? 1 L NS at 75 mL/h ? Avoid nephrotoxins ? Renally dose medications #Sepsis, secondary to #UTI versus intra-abdominal abscess #History of recurrent UTI CT A/P prelim report shows possible intra-abdominal abscess. Patient reports dysuria and cloudy urine, noted to have recurrent UTIs. Most recent urine cultures positive for E. coli, pansensitive. ? General Surgery consulted, appreciate recommendations ? Zosyn 2.25 g IV every 8 hours ? Follow-up urine culture ? Follow-up blood culture #Electrolyte imbalances #Hyponatremia #Hyperkalemia #Hypochloremia #Hypocalcemia #Hyperphosphatemia #Hypomagnesemia ? Nephrology consulted as above ? Follow-up BMP at 8 AM after fluid resuscitation ? Consider veltassa and/or sevelamer depending on results #Hypothyroidism ? Levothyroxine total 137 mcg #Hypertension #Depression #Dementia Pending med rec Hospital management: Disposition: 2-3 hospital nights Fluids: 1 L NS at 75 mL/hr Diet: Dysphagia 1 - pureed Lines: Peripheral DVT prophylaxis: Heparin SC GI prophylaxis: Not indicated [place]: Placed CODE STATUS: Full code ----- Plan discussed with attending physician Dr. Freddie Juarez MD PGY-1 Internal Medicine Attending Provider Attestation/Addendum Pt was evaluated and plan formulated together with the housestaff team. I have reviewed the residents note above and agree with most of its content. Please refer to the residents note for additional details.
[2024-03-21] MEDS: SODIUM CHLORIDE 0.9% 1000 ML 1,000 ML 75 ML IV (05:37)
[2024-03-21] MEDS: Magnesium Sulfate 2 GM Ivpb 2 GM/50 ML BAG IV (05:37)
[2024-03-21] MEDS: PIPERACILLIN/TAZO 2.25GM INJ 2.25 GM in SODIUM CHLORIDE 0.9% (P) 50 ML IV (05:45)
[2024-03-21 05:48] LABS: Base Excess -3 (-3-3); HCO3 23 mEq/L (20-26); Inspired Oxygen, FIO2 2 %; O2 Saturation 99 % (91-98); PCO2 41 mmHg (32.0-48.0); PO2 121 mmHg (83-108); pH, Arterial 7.35 (7.35-7.45)
[2024-03-21 05:50] LABS: Allen Test Performed/OK; Puncture Site Right Radial
[2024-03-21] MEDS: HEPARIN SOD INJ 5000 UNIT/ML VIAL SC ×2 (05:57→21:37)
--- NOTE | 2024-03-21 06:35 | PC.NURSE ---
Called house sup to see if they can bring down levothyroxine since we are out of stock in the ER. Per house sup, call pharmacy. Pharmacy no answer.
--- NOTE | 2024-03-21 07:00 | PC.NURSE ---
PT INTRODUCED TO DAY SHIFT NURSE. PT INITIALLY BROUGHT IN FROM HOME FOR NAUSEA AND VOMITING. PER SHIFT REPORT PT WAS CONFUSED AND LETHARGIC UPON ARRIVAL AND TO BE ADMITTED TO TELE FOR ACUTE KIDNEY INJURY
[2024-03-21 07:52] LABS: Anion Gap 14 (7-16); Calcium 7.6 mg/dL (8.3-10.6); Carbon Dioxide 22.4 mMol/L (20.0-31.0); Chloride 89 mMol/L (98-107); Creatinine (Component) 9.3 mg/dL (0.6-1.3); Estimated Creatinine Clearance 4.4 mL/min (>60); Glucose 91 mg/dL (74-106); Sodium 125 mMol/L (136-145); eGFR 4 See Note
[2024-03-21 07:53] LABS: Potassium 6.6 mMol/L (3.4-5.1)
--- NOTE | 2024-03-21 07:55 | PC.NURSE ---
PT'S COLOSTOMY LEAKING UNDERNEATH WAFER AND SKIN RED WHERE LEAKING OCCURRING. CLEAN AND RETAPED.
[2024-03-21 08:01] LABS: BUN/Creatinine Ratio 14 Ratio (12-20); Osmolality,Calculated 294 (275-295)
[2024-03-21 08:03] LABS: Blood Urea Nitrogen 134 mg/dL (9-23)
--- NOTE | 2024-03-21 08:05 | PC.NURSE ---
pharmacy called for thyroid med
[2024-03-21] MEDS: ALBUTEROL RT 2.5 MG/0.5 ML NEBU INH (08:39)
[2024-03-21 09:08] LABS: INR 1.2 (0.9-1.3); Partial Thromboplastin Time 33.3 Seconds (22.0-36.0); Prothrombin Time 12.7 Seconds (9.0-12.2)
[2024-03-21 09:12] LABS: Potassium 5.6 mMol/L (3.4-5.1)
[2024-03-21 09:14] LABS: Troponin I 0.307 ng/mL (0.0-0.045)
--- NOTE | 2024-03-21 09:27 | CHAP ---
Patient was sleeping. I prayed silently beside her bed.
--- NOTE | 2024-03-21 10:05 | PD.RESCONSUL ---
HPI Data of Consult Consult date: 03/21/24 Requesting Physician: Brennon Frazier MD Admitting Provider: Brennon Frazier MD Attending Provider: Zhen Rahman MD Primary Care Provider: Jorge Herndon MD Consult Narrative Reason for consult: Acute renal failure History of present illness: 78 y/o F with PMHx significant for hypothyroidism, hypertension, JACKIE, asthma, depression, dementia, recurrent UTI, and is status post hemicolectomy with ileostomy presents with altered mental status and nausea and vomiting. Patient initially presented to ED with altered mentation and was not able to provide history. Subsequently given 2.5 L of fluids per sepsis protocol and mentation slowly improved. Upon evaluation, patient endorsed 2 to 3 days of nausea and vomiting along with decreased p.o. intake. Also endorses abdominal pain at ileostomy site, decreased ileostomy output, as well as dysuria and cloudy urine but denies fever or chills. Otherwise also denies shortness of breath or chest discomfort. Of note, patient recently discharged on 02/15 for ileostomy leakage/malfunction. CT head unremarkable. CT A/P showed Soft tissue mass in the anterior abdominal wall 2.8 x 2.2 cm and aggregate of small bowel versus abscess in the right lower abdomen poorly defined, at least 4 cm in dimension. Patient recieved IVF, magnesisum, zosyn and rocephin in ED. Labs showed sodium 125, potassium 6.6, BUN 134, Coal Crusher Operator 9.3, eGFR 4, Corrected Ca 8.3, phos 10.7, Mg 1.1. Patient has no known history CKD. On exam patient was lethargic but responsive, followed commands, A&Ox3. Appears euvolemic. Nephrology consulted for acute renal failure, plan for emergent dialysis. cc:: cc: Brennon Frazier MD Review of Systems Review of Systems Systems Reviewed: All systems reviewed, normal except as documented Past Medical History Past Medical History NEUROLOGIC: Positive Dementia, Meningitis and Migraine; Negative Neurological Disorders or Seizures CARDIAC: Positive Cardiac Disorders, Congestive Heart Failure and Hypertension RESPIRATORY: Positive Sleep Apnea; Negative Chronic Obstructive Pulmonary Disease (COPD) or Asthma GASTROINTESTINAL: Positive Pancreatitis, Gall Bladder Disease, Diverticulosis, Hiatal Hernia, Gastroesophageal Reflux Disease and Obesity GENITOURINARY: Negative Genitourinary Disorders or Renal Disease REPRODUCTIVE: Positive Previous Pregnancies; Negative Endometriosis or Pelvic Inflammatory Disease MUSCULOSKELETAL: Positive Musculoskeletal Disorders and Fibromyalgia ENDOCRINE: Positive Endocrine Disorders, Hypothyroidism and Syndrome of Inappropriate Antidiuretic Hormone (SIADH); Negative Diabetes Mellitus Type 1 or Diabetes Mellitus Type 2 HEMATOLOGIC: Positive Anemia; Negative Blood Disorders or Sickle Cell Disease PSYCHO/SOCIAL: Positive Bipolar Disorder, Depression and Anxiety OTHER HISTORY: Positive Chicken Pox; Negative Autoimmune Disease, Blood Transfusions, Blood Transfusion Reaction, Anesthesia Reactions, Organ Transplant or Cancer Family History FAMILY HISTORY: Positive Family Psychiatric Problems and Family Surgery; Negative Family Neurologic Problems, Family Respiratory Disorders, Family Cardiac Disorders, Family Gastrointestinal Problems, Family Cancer or Family Anesthesia Reaction Surgical History SURGICAL: Positive Tonsillectomy, Abdominal Surgery, Gastrostomy and Hysterectomy; Negative Cardiac Surgery, Endocrine Surgery, Thyroidectomy or Organ Transplant Social History SMOKING STATUS: Never smoker SUBSTANCE USE: does not use Exam Vital Signs Temp Pulse Resp BP Pulse Ox O2 Del Method O2 Flow Rate 97.7 F 98 16 129/56 L 100 Room Air 2 03/21/24 08:14 03/21/24 08:40 03/21/24 08:40 03/21/24 08:14 03/21/24 08:40 03/21/24 08:14 03/21/24 08:40 Narrative Exam PE: Gen: Well-developed and well-nourished. Elderly frail lady seen in the emergency department HEENT: NCAT, PERRLA, EOMI, MMM, anicteric conjunctivae. CVS: normal S1 and S2. RRR. No M/R/G. Resp: Mild rhonchi Righ upper lung field. Diffuse coarse lung sounds. Abd: soft, non-tender, non-distended. Illeostomy, signs of leaking. MSK: Good ROM in BUE & BLE. No edema or rash. Neuro: CN II-XII grossly intact. Strength 4/5 in BUE & BLE. Alert and oriented x3. Lethargic. Results Labs 03/21/24 01:22 03/21/24 08:35 Labs: Short CBC 03/21/24 Range/Units :22 WBC 20.9 H (3.6-11.0) Thou/mm3 Hgb 12.6 (12.0-16.0) g/dL Hct 37.2 (36.0-46.0) % Plt Count 364 D (140-440) Thou/mm3 BMP 03/21/24 03/21/24 03/21/24 02:50 04:27 04:27 Sodium 123 L Cancelled 125 L Potassium 5.5 H Cancelled Chloride 88 L Carbon Dioxide 21.7 BUN 121 H* Creatinine 9.5 H* Glucose 107 H Calcium 7.5 L 03/21/24 03/21/24 03/21/24 04:27 04:27 04:27 Sodium Potassium 6.6 H* D Chloride Cancelled 89 L Carbon Dioxide Cancelled 22.4 BUN Cancelled Creatinine Glucose Calcium 03/21/24 03/21/24 03/21/24 04:27 04:27 04:27 Sodium Potassium Chloride Carbon Dioxide BUN 134 H* Creatinine Cancelled 9.3 H* Glucose Cancelled 91 Calcium Cancelled 03/21/24 03/21/24 04:27 08:35 Sodium Potassium 5.6 H D Chloride Carbon Dioxide BUN Creatinine Glucose Calcium 7.6 L Cardiac Enzymes 03/21/24 03/21/24 Range/Units 02:50 08:35 Troponin I 0.210 H* 0.307 H* (0.0-0.045) ng/mL Liver Function 03/21/24 Range/Units 02:50 Total Bilirubin 0.3 (0.3-1.2) mg/dL AST 14 (0-34) U/L ALT 8 L (10-49) U/L Alkaline Phosphatase 243 H (46-116) U/L Albumin 3.0 L (3.4-4.8) gm/dL Urine 03/21/24 Range/Units 03:40 Urine Color [place] A (Lt Yel-Yel) Urine Clarity Turbid A (Clear/Hazy) Urine pH 5.5 (5.0-7.0) Ur Specific [place] 1.018 (1.001-1.035) Urine Protein 2+ A (Neg - Trace) Urine Glucose (UA) Negative (Negative) ABG Interpretation ABG results: 03/21/24 05:40 ABG pH 7.35 ABG pCO2 41 ABG pO2 121 H ABG HCO3 23 ABG O2 Saturation 99 H ABG Base Excess -3 Quality Measures Quality Measures VTE prophylaxis and sepsis Current suspected stage: sepsis Possible source: skin/soft tissue Blood cultures ordered: yes Antibiotic ordered: Yes Advance care planning discussed with:: patient Medications Home Medications and Allergies Home Medications ?Medication ?Instructions ?Recorded ?Confirmed ?Type aspirin 81 mg tablet,delayed 81 mg PO QDAY 11/13/22 03/06/24 History release loratadine 10 mg tablet 10 mg PO QDAY 11/13/22 03/06/24 History divalproex 250 mg tablet,delayed 250 mg PO HS 12/18/23 03/06/24 History release (Depakote) donepezil 10 mg tablet 10 mg PO HS 12/18/23 03/06/24 History ferrous sulfate 325 mg (65 mg 325 mg PO BID 12/18/23 03/06/24 History iron) tablet (FeroSul) levothyroxine 137 mcg tablet 137 mcg PO QDAY 12/18/23 03/06/24 History memantine 10 mg tablet 10 mg PO BID 12/18/23 03/06/24 History montelukast 10 mg tablet 10 mg PO HS 12/18/23 03/06/24 History multivitamin 1 tab PO QDAY 12/18/23 03/06/24 History nortriptyline 10 mg capsule 10 mg PO HS 12/18/23 03/06/24 History pantoprazole 40 mg tablet,delayed 40 mg PO QDAY 01/19/24 03/06/24 History release bisacodyl 10 mg rectal suppository 10 mg [place] Q72H PRN Constipation 01/24/24 03/06/24 History (Dulcolax (bisacodyl)) calcium carbonate 500 mg PO Q6HR PRN Acid Reflux 01/24/24 03/06/24 History lidocaine 5 % topical cream 1 applic topical Q12HR PRN Pain 01/24/24 03/06/24 History magnesium hydroxide 400 mg/5 mL 30 ml PO Q72H PRN Constipation 01/24/24 03/06/24 History oral suspension (Milk of Magnesia) ondansetron HCl 8 mg tablet 8 mg PO Q6HR PRN Nausea And 01/24/24 03/06/24 History Vomiting oxycodone-acetaminophen 10 mg-325 1 tab PO Q4H PRN Severe Pain 01/24/24 03/06/24 History mg tablet (Scale Score 7-10) zolpidem 5 mg tablet (Ambien) 5 mg PO HS 01/24/24 03/06/24 History acetaminophen 325 mg tablet 650 mg PO Q4H PRN Fever Or Pain 02/15/24 03/06/24 History ascorbic acid (vitamin C) 500 mg 500 mg PO BID 02/15/24 03/06/24 History tablet (Vitamin C) Allergies Allergy/AdvReac Type Severity Reaction Status Date / Time haloperidol Allergy Severe Confusion Verified 03/06/24 13:18 naproxen Allergy Intermediate HIVES Verified 03/06/24 13:18 fluoxetine Allergy Unknown ANXIETY Verified 03/06/24 13:18 Visit Medications Acetaminophen (Acetaminophen 325 Mg Tablet) 650 mg PO Q6H PRN PRN Reason: Fever >101.5 Stop: 04/20/24 05:18 Heparin Sodium (Porcine) (Heparin Sod Inj 5000 Unit/Ml Vial) 5,000 unit SC Q8HR ASHISH Stop: 04/04/24 05:59 Last Admin: 03/21/24 05:57 Dose: 5,000 unit Sodium Chloride (Ns) 1,000 mls @ 75 mls/hr IV .[id number] [facility] Stop: 03/21/24 18:49 Last Admin: 03/21/24 05:37 Dose: 75 mls/hr Piperacillin/Tazobactam/Dextrose (Zosyn) 50 mls @ 12.5 mls/hr IV Q12HR ASHISH; Protocol Stop: 03/28/24 20:59 Magnesium Sulfate (Magnesium Sulfate Ivpb) 4 gm in 50 mls @ 12.5 mls/hr IV X1 ONE Stop: 03/21/24 12:27 Levothyroxine Sodium 112 mcg/ (Levothyroxine Sodium 25 mcg) 137 mcg PO ACBR [facility] Stop: 04/20/24 07:29 Ondansetron HCl (Ondansetron Inj 2 Mg/Ml Inj 2 Ml) 4 mg IV Q6H PRN; Protocol PRN Reason: NAUSEA OR VOMITING Stop: 04/20/24 06:07 Sevelamer Carbonate (Sevelamer Carbonate 800 Mg Tablet) 800 mg PO TIDWM [facility] Stop: 04/20/24 11:59 Sodium Chloride (Sodium Chloride Rt Tia 0.9% 3 Ml Nebu) 3 ml INH PRN PRN PRN Reason: SOLN Stop: 04/20/24 08:24 Discontinued Medications Albuterol (Albuterol Rt 2.5 Mg/0.5 Ml Nebu) 2.5 mg INH X1 ONE Stop: 03/21/24 08:26 Last Admin: 03/21/24 08:39 Dose: 2.5 mg Dextrose (Dextrose 50%-Water Inj 50 Ml Syringe) 50 ml IV X1 ONE Stop: 03/21/24 08:23 Sodium Chloride (Ns) 1,000 mls @ 999 mls/hr IV .Q1H1M ONE Stop: 03/21/24 02:15 Last Infusion: 03/21/24 02:19 Dose: Infused Sodium Chloride (Ns) 1,000 mls @ 999 mls/hr IV .Q1H1M ONE Stop: 03/21/24 03:08 Last Infusion: 03/21/24 03:24 Dose: Infused Ceftriaxone Sodium/Dextrose (Rocephin/D5w 1gm Iv Premix) 50 mls @ 100 mls/hr IV X1 ONE Stop: 03/21/24 04:23 Last Infusion: 03/21/24 05:39 Dose: Infused Sodium Chloride (Ns) 500 mls @ 999 mls/hr IV .Q31M ONE Stop: 03/21/24 05:22 Last Infusion: 03/21/24 05:39 Dose: Infused Magnesium Sulfate (Magnesium Sulfate Ivpb) 2 gm in 50 mls @ 25 mls/hr IV X1 ONE Stop: 03/21/24 07:17 Last Infusion: 03/21/24 07:37 Dose: Infused Piperacillin/Tazobactam/Dextrose (Zosyn) 2.25 gm in 50 mls @ 100 mls/hr IV X1 ONE Stop: 03/21/24 05:59 Last Admin: 03/21/24 05:59 Dose: Not Given Piperacillin Sod/Tazobactam (Sod 2.25 gm/ Sodium Chloride) 50 mls @ 100 mls/hr IV X1 ONE Stop: 03/21/24 06:09 Last Infusion: 03/21/24 06:20 Dose: Infused Insulin Human Regular (Insulin Hum Regular 1 Unit/0.01 Ml (Per Unit)) 5 unit IV X1 ONE Stop: 03/21/24 08:23 Levothyroxine Sodium (Levothyroxine Sodium 125 Mcg Tablet) 137 mcg PO ACBR ASHISH Stop: 04/20/24 05:59 Levothyroxine Sodium (Levothyroxine Sodium 25 Mcg Tablet) 25 mcg PO ACBR ASHISH Stop: 04/20/24 05:59 Ondansetron HCl (Ondansetron Inj 2 Mg/Ml Inj 2 Ml) 4 mg IV X1 ONE; Protocol Stop: 03/21/24 01:16 Last Admin: 03/21/24 01:44 Dose: 4 mg Sodium Polystyrene Sulfonate (Sod Polystyrene Sulfon Susp 15 Gm/60 Ml Btl) 30 gm PO X1 ONE Stop: 03/21/24 08:23 Assessment & Plan Plan 78 y/o F with PMHx significant for hypothyroidism, hypertension, JACKIE, asthma, depression, dementia, recurrent UTI, and is status post hemicolectomy with ileostomy admitted for acute uremic encephalopathy, stage III acute kidney injury, sepsis secondary to UTI versus intra-abdominal abscess. #Acute uremic encephalopathy #Acute kidney injury-suspect patient in ischemic ATN Decreased p.o. intake in the last 2 to 3 days with nausea and vomiting and presence of ileostomy, thus likely prerenal. However, given extensive elevation in creatinine and drop in GFR other etiologies cannot be excluded. Initial creatinine 9.5 (BL 1.0), BUN 121, which worsened to Coal Crusher Operator 9.3, BUN 134, eGFR 4. Will have received total of 3.5 L of IVF. -Plan for catheter placement followed by emergent dialysis -IVF: NS at 75ml/h -Avoid nephrotoxins -Renally dose medications -Hepatits panel pending, follow up -daily labs #Sepsis, secondary to #UTI versus intra-abdominal abscess #History of recurrent UTI #Electrolyte imbalances #Hypothyroidism #Hypertension #Depression #Dementia Management as per primary team. Thank you for allowing me to participate in the care of this patient. Plan of care discussed with my attending Dr. Rahman. Vadim Price MD PGY-1 Attending Provider Attestation/Addendum Patient seen and examined with resident physician Dr. Price. Note reviewed, agree with findings and recommendations.. Patient with severe azotemia (suspect ischemic ATN), electrolyte imbalance, hyperkalemia, metabolic acidosis refractory to medical management. Patient is full CODE STATUS. Decided to proceed with dialysis. Dr. Ruth placed a dialysis catheter. Patient currently seen on dialysis. Hemodialysis for 2 hours, 2K, ultrafiltration 0 L, Epogen 6000, no heparin ordered. Plan of care discussed with the dialysis nurse. Please see dialysis flowsheet for further details. Next dialysis will be scheduled for tomorrow. Hepatitis, PPD, outpatient dialysis might be needed if no improvement in renal function.
[2024-03-21] MEDS: SOD POLYSTYRENE SULFON SUSP 15 GM/60 ML BTL 30 GM PO (10:12)
[2024-03-21] MEDS: LEVOTHYROXINE SODIUM 112 MCG, LEVOTHYROXINE SODIUM 25 MCG 137 MCG PO (10:12)
[2024-03-21] MEDS: INSULIN HUM REGULAR 1 UNIT/0.01 ML (PER UNIT) 5 UNIT IV (10:13)
[2024-03-21] MEDS: DEXTROSE 50%-WATER INJ 50 ML SYRINGE IV (10:14)
[2024-03-21] MEDS: Magnesium Sulfate 4 GM Ivpb 4 GM/50 ML BAG IV (10:20)
[2024-03-21 10:28] LABS: Hepatitis A Antibody IgM Non Reactive (Non React); Hepatitis B Core Antibody IgM Non Reactive (Non React); Hepatitis B Surface Ab NonReact(Not Immune) (Immune); Hepatitis B Surface Antigen Non Reactive (Non React); Hepatitis C Antibody Non Reactive (Non React)
--- NOTE | 2024-03-21 11:11 | PC.NURSE ---
report to nurse in chemistry lab instructor. [employer] to call daughter to get consent for perm cath.
--- NOTE | 2024-03-21 13:03 | PD.SURCONS ---
HPI Consult details History of present illness: 78F with HTN, CHF, hypothyroidism who underwent right hemicolectomy with diverting ileostomy for fecal contamination 12/19, admitted in past for MAKENZIE here now with AMS and acute renal failure, planned for emergent HD. Workup shows leukocytosis and possible abdominal fluid collection PMH: HTN, CHF, hypothyroidism, bipolar disorder PSHx: Tonsillectomy, appendectomy, cholecystectomy, hysterectomy, R hemicolectomy with diverting ileostomy 12/19 for benign necrotic mass Meds: no anticoagulation Allergies: haldol, naproxen, fluoxetine Social hx: Nonsmoker Review of Systems Review of Systems ROS Unobtainable: unobtainable due to mental status Meds Home Medications and Allergies Home Medications ?Medication ?Instructions ?Recorded ?Confirmed ?Type aspirin 81 mg tablet,delayed 81 mg PO QDAY 11/13/22 03/06/24 History release loratadine 10 mg tablet 10 mg PO QDAY 11/13/22 03/06/24 History divalproex 250 mg tablet,delayed 250 mg PO HS 12/18/23 03/06/24 History release (Depakote) donepezil 10 mg tablet 10 mg PO HS 12/18/23 03/06/24 History ferrous sulfate 325 mg (65 mg 325 mg PO BID 12/18/23 03/06/24 History iron) tablet (FeroSul) levothyroxine 137 mcg tablet 137 mcg PO QDAY 12/18/23 03/06/24 History memantine 10 mg tablet 10 mg PO BID 12/18/23 03/06/24 History montelukast 10 mg tablet 10 mg PO HS 12/18/23 03/06/24 History multivitamin 1 tab PO QDAY 12/18/23 03/06/24 History nortriptyline 10 mg capsule 10 mg PO HS 12/18/23 03/06/24 History pantoprazole 40 mg tablet,delayed 40 mg PO QDAY 01/19/24 03/06/24 History release bisacodyl 10 mg rectal suppository 10 mg [place] Q72H PRN Constipation 01/24/24 03/06/24 History (Dulcolax (bisacodyl)) calcium carbonate 500 mg PO Q6HR PRN Acid Reflux 01/24/24 03/06/24 History lidocaine 5 % topical cream 1 applic topical Q12HR PRN Pain 01/24/24 03/06/24 History magnesium hydroxide 400 mg/5 mL 30 ml PO Q72H PRN Constipation 01/24/24 03/06/24 History oral suspension (Milk of Magnesia) ondansetron HCl 8 mg tablet 8 mg PO Q6HR PRN Nausea And 01/24/24 03/06/24 History Vomiting oxycodone-acetaminophen 10 mg-325 1 tab PO Q4H PRN Severe Pain 01/24/24 03/06/24 History mg tablet (Scale Score 7-10) zolpidem 5 mg tablet (Ambien) 5 mg PO HS 01/24/24 03/06/24 History acetaminophen 325 mg tablet 650 mg PO Q4H PRN Fever Or Pain 02/15/24 03/06/24 History ascorbic acid (vitamin C) 500 mg 500 mg PO BID 02/15/24 03/06/24 History tablet (Vitamin C) Allergies Allergy/AdvReac Type Severity Reaction Status Date / Time haloperidol Allergy Severe Confusion Verified 03/06/24 13:18 naproxen Allergy Intermediate HIVES Verified 03/06/24 13:18 fluoxetine Allergy Unknown ANXIETY Verified 03/06/24 13:18 Exam Vital Signs Temp Pulse Resp BP Pulse Ox O2 Del Method O2 Flow Rate 97.2 F 80 14 126/84 100 Room Air 2 03/21/24 12:23 03/21/24 12:23 03/21/24 12:23 03/21/24 12:23 03/21/24 12:23 03/21/24 12:23 03/21/24 12:20 Constitutional Constitutional: mild distress Routine Respiratory Exam Respiratory: Present no resp distress Routine Abdominal Exam Abdominal: Present soft and ostomy (ileostomy pink with green liquid stool in appliance) Results Results: Laboratory Laboratory results: results reviewed Results: Imaging CT scan - abdomen: report reviewed and image reviewed Assessment & Plan Plan 78F with HTN, CHF, hypothyroidism who underwent right hemicolectomy with diverting ileostomy for fecal contamination 12/19, admitted with acute renal failure Appreciate nephrology and wound care Strict I&O Will follow up
--- NOTE | 2024-03-21 14:36 | XR_ITS ---
Examination: Retroperitoneal ultrasound, complete Technique: Multiple high resolution grayscale images of the retroperitoneum obtained, including kidneys and bladder. Exam date and time:March 21, 2024 2142 hrs. Indications: Altered mental status with renal insufficiency today Findings: Right kidney 9.3 x 4.0 x 4.8 cm cortex 1.2 cm Left kidney 8.4 x 4.7 x 4.6 cm renal cortex 1.4 cm Moderate bilateral renal parenchymal scar formation Bladder contracted around a [place] Impression: Bilateral renal cortical thinning Moderate bilateral renal parenchymal scar formation No hydronephrosis or renal calculi
[2024-03-21] MEDS: HEPARIN SOD LOCK SYR 100 UNIT/ML 500 UNIT STFIELD (14:55)
[2024-03-21] MEDS: LIDOCAINE INJ PF 1% 30 ML VIAL 9 ML INFL (14:55)
[2024-03-21] MEDS: fentaNYL CIT INJ 50 mCg/ML AMP 2ML 25 MCG IVP (14:56)
--- NOTE | 2024-03-21 15:03 | ESPR_ITS ---
<Statement entered by Alyson Vang MD - 03/21/24 16:30> Senior Resident Attestation: I supervised/discussed management plan with consulting intern physician Dr. Guerrero, and was involved in the care of this patient. I personally saw and examined the patient and discussed the assessment and plan with the entire medicine team, including my attending. I agree with the assessment and plan as documented. Patient's care was discussed with attending physician, Dr. Natalio Vang MD PGY-3 Documentation for date of: 03/21/24 Subjective Subjective Interval history: Patient seen at bedside. She is a 78-year-old female with a past medical history of hypothyroidism, hypertension, depression, dementia, recurrent UTI, asthma, status post right hemicolectomy and diverting ileostomy who presented to the ED on 03/21/2024 with nausea, vomiting, dysuria and altered mental status. On admission, patient was noted to have hyperkalemia, increased BUN and creatinine of up to 9.5 as well as hyperphosphatemia. UA was positive for UTI, CT abdomen pelvis showed some suspicion for intra-abdominal abscess. The patient was given 3.5 L of NS and 1 dose of ceftriaxone and admitted for management of sepsis secondary to UTI versus intra-abdominal abscess. On review today, patient's potassium was found to be 6.6 and she was started on a hyperkalemic protocol-5 units of insulin, D50 and given 800 mg of sevelamer. Clinically, she no longer has episodes of vomiting or nausea and mentation is back to baseline. Nephrology was consulted for urgent hemodialysis. Additionally, patient is on IV Zosyn for sepsis management. General surgeon Dr. Flynn consulted, recommends to continue wound care. Exam Vital Signs Temp Pulse Resp BP Pulse Ox O2 Del Method O2 Flow Rate 97.2 F 98 13 158/73 H 100 Nasal Cannula 3 03/21/24 12:23 03/21/24 15:00 03/21/24 15:00 03/21/24 15:00 03/21/24 15:00 03/21/24 15:00 03/21/24 15:00 Narrative Exam GENERAL: AAOX3 NEURO: CHECKMAN grossly intact, moves extremities x4 HEENT: Dry mucosa. Eyes open, symmetrical, & clear CARDIO: No chest pain on palpation. Heart RRR, no obvious murmurs PULM: No noted coughing/dyspnea. Lungs CTA B/L, GI: Abdomen soft, nondistended, no pain on palpation. Colostomy area seen, mild cellulitis seen in surrounding area. 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 SKIN/MSK/EXT: No wounds/rashes/edema/amputations, no pain on palpation. Pedal pulses present B/L Objective Labs 03/25/24 06:07 03/25/24 06:07 Labs: Laboratory Results - last 24 hr 03/21/24 03/21/24 03/21/24 01:22 02:50 03:40 WBC 20.9 H RBC 4.49 Hgb 12.6 Hct 37.2 MCV 83 MCH 28.1 MCHC 33.9 RDW Std Deviation 45.4 Plt Count 364 D Neut % (Auto) 87 H Lymph % (Auto) 7 L Reeves % (Auto) 4 Eos % (Auto) 0 Baso % (Auto) 0 Neut # (Auto) 18.2 H Lymph # (Auto) 1.5 Reeves # (Auto) 0.7 Eos # (Auto) 0.0 Baso # (Auto) 0.1 Immature Gran # (Auto) 0.30 H Absolute Nucleated RBC 0.00 Immature Gran % 1 H Nucleated RBC % 0 PT INR APTT Puncture Site ABG pH ABG pCO2 ABG pO2 ABG HCO3 ABG O2 Saturation ABG Base Excess FiO2 Sodium 123 L Potassium 5.5 H Chloride 88 L Carbon Dioxide 21.7 Anion Gap 13 BUN 121 H* Creatinine 9.5 H* Estim Creat Clear Calc 4.3 L eGFR 4 L* BUN/Creatinine Ratio 13 Glucose 107 H Calculated Osmolality 286 Lactic Acid 3.7 H Calcium 7.5 L Corrected Calcium 8.3 L Phosphorus Magnesium Total Bilirubin 0.3 AST 14 ALT 8 L Alkaline Phosphatase 243 H Troponin I 0.210 H* Total Protein 5.8 Albumin 3.0 L Globulin 2.8 Albumin/Globulin Ratio 1.1 L Procalcitonin 0.44 Ur Collection Type Clean Catch Urine Color [place] A Urine Clarity Turbid A Urine pH 5.5 Ur Specific [place] 1.018 Urine Protein 2+ A Urine Glucose (UA) Negative Urine Ketones Negative Urine Blood 2+ A Urine Nitrite Negative Urine Bilirubin Negative Urine Urobilinogen (Auto) 2.0 Ur Leukocyte Esterase Positive Urine RBC 48 H Urine WBC 1551 H Ur Squamous Epith Cells 8 H Urine Bacteria 4+ A Urine Yeast (Budding) Present A Hepatitis A IgM Ab Hep Bs Antigen Hep Bs Antibody Hep B Core IgM Ab Hepatitis C Antibody 03/21/24 03/21/24 03/21/24 04:27 04:27 04:27 WBC RBC Hgb Hct MCV MCH MCHC RDW Std Deviation Plt Count Neut % (Auto) Lymph % (Auto) Reeves % (Auto) Eos % (Auto) Baso % (Auto) Neut # (Auto) Lymph # (Auto) Reeves # (Auto) Eos # (Auto) Baso # (Auto) Immature Gran # (Auto) Absolute Nucleated RBC Immature Gran % Nucleated RBC % PT INR APTT Puncture Site ABG pH ABG pCO2 ABG pO2 ABG HCO3 ABG O2 Saturation ABG Base Excess FiO2 Sodium Cancelled 125 L Potassium Cancelled 6.6 H* D Chloride Cancelled Carbon Dioxide Anion Gap BUN Creatinine Estim Creat Clear Calc eGFR BUN/Creatinine Ratio Glucose Calculated Osmolality Lactic Acid Calcium Corrected Calcium Phosphorus Magnesium Total Bilirubin AST ALT Alkaline Phosphatase Troponin I Total Protein Albumin Globulin Albumin/Globulin Ratio Procalcitonin Ur Collection Type Urine Color Urine Clarity Urine pH Ur Specific [place] Urine Protein Urine Glucose (UA) Urine Ketones Urine Blood Urine Nitrite Urine Bilirubin Urine Urobilinogen (Auto) Ur Leukocyte Esterase Urine RBC Urine WBC Ur Squamous Epith Cells Urine Bacteria Urine Yeast (Budding) Hepatitis A IgM Ab Hep Bs Antigen Hep Bs Antibody Hep B Core IgM Ab Hepatitis C Antibody 03/21/24 03/21/24 03/21/24 04:27 04:27 04:27 WBC RBC Hgb Hct MCV MCH MCHC RDW Std Deviation Plt Count Neut % (Auto) Lymph % (Auto) Reeves % (Auto) Eos % (Auto) Baso % (Auto) Neut # (Auto) Lymph # (Auto) Reeves # (Auto) Eos # (Auto) Baso # (Auto) Immature Gran # (Auto) Absolute Nucleated RBC Immature Gran % Nucleated RBC % PT INR APTT Puncture Site ABG pH ABG pCO2 ABG pO2 ABG HCO3 ABG O2 Saturation ABG Base Excess FiO2 Sodium Potassium Chloride 89 L Carbon Dioxide Cancelled 22.4 Anion Gap Cancelled 14 BUN Cancelled Creatinine Estim Creat Clear Calc eGFR BUN/Creatinine Ratio Glucose Calculated Osmolality Lactic Acid Calcium Corrected Calcium Phosphorus Magnesium Total Bilirubin AST ALT Alkaline Phosphatase Troponin I Total Protein Albumin Globulin Albumin/Globulin Ratio Procalcitonin Ur Collection Type Urine Color Urine Clarity Urine pH Ur Specific [place] Urine Protein Urine Glucose (UA) Urine Ketones Urine Blood Urine Nitrite Urine Bilirubin Urine Urobilinogen (Auto) Ur Leukocyte Esterase Urine RBC Urine WBC Ur Squamous Epith Cells Urine Bacteria Urine Yeast (Budding) Hepatitis A IgM Ab Hep Bs Antigen Hep Bs Antibody Hep B Core IgM Ab Hepatitis C Antibody 03/21/24 03/21/24 03/21/24 04:27 04:27 04:27 WBC RBC Hgb Hct MCV MCH MCHC RDW Std Deviation Plt Count Neut % (Auto) Lymph % (Auto) Reeves % (Auto) Eos % (Auto) Baso % (Auto) Neut # (Auto) Lymph # (Auto) Reeves # (Auto) Eos # (Auto) Baso # (Auto) Immature Gran # (Auto) Absolute Nucleated RBC Immature Gran % Nucleated RBC % PT INR APTT Puncture Site ABG pH ABG pCO2 ABG pO2 ABG HCO3 ABG O2 Saturation ABG Base Excess FiO2 Sodium Potassium Chloride Carbon Dioxide Anion Gap BUN 134 H* Creatinine Cancelled 9.3 H* Estim Creat Clear Calc Cancelled 4.4 L eGFR Cancelled BUN/Creatinine Ratio Glucose Calculated Osmolality Lactic Acid Calcium Corrected Calcium Phosphorus Magnesium Total Bilirubin AST ALT Alkaline Phosphatase Troponin I Total Protein Albumin Globulin Albumin/Globulin Ratio Procalcitonin Ur Collection Type Urine Color Urine Clarity Urine pH Ur Specific [place] Urine Protein Urine Glucose (UA) Urine Ketones Urine Blood Urine Nitrite Urine Bilirubin Urine Urobilinogen (Auto) Ur Leukocyte Esterase Urine RBC Urine WBC Ur Squamous Epith Cells Urine Bacteria Urine Yeast (Budding) Hepatitis A IgM Ab Hep Bs Antigen Hep Bs Antibody Hep B Core IgM Ab Hepatitis C Antibody 03/21/24 03/21/24 03/21/24 04:27 04:27 04:27 WBC RBC Hgb Hct MCV MCH MCHC RDW Std Deviation Plt Count Neut % (Auto) Lymph % (Auto) Reeves % (Auto) Eos % (Auto) Baso % (Auto) Neut # (Auto) Lymph # (Auto) Reeves # (Auto) Eos # (Auto) Baso # (Auto) Immature Gran # (Auto) Absolute Nucleated RBC Immature Gran % Nucleated RBC % PT INR APTT Puncture Site ABG pH ABG pCO2 ABG pO2 ABG HCO3 ABG O2 Saturation ABG Base Excess FiO2 Sodium Potassium Chloride Carbon Dioxide Anion Gap BUN Creatinine Estim Creat Clear Calc eGFR 4 L* BUN/Creatinine Ratio Cancelled 14 Glucose Cancelled 91 Calculated Osmolality Cancelled Lactic Acid Calcium Corrected Calcium Phosphorus Magnesium Total Bilirubin AST ALT Alkaline Phosphatase Troponin I Total Protein Albumin Globulin Albumin/Globulin Ratio Procalcitonin Ur Collection Type Urine Color Urine Clarity Urine pH Ur Specific [place] Urine Protein Urine Glucose (UA) Urine Ketones Urine Blood Urine Nitrite Urine Bilirubin Urine Urobilinogen (Auto) Ur Leukocyte Esterase Urine RBC Urine WBC Ur Squamous Epith Cells Urine Bacteria Urine Yeast (Budding) Hepatitis A IgM Ab Hep Bs Antigen Hep Bs Antibody Hep B Core IgM Ab Hepatitis C Antibody 03/21/24 03/21/24 03/21/24 04:27 04:27 05:40 WBC RBC Hgb Hct MCV MCH MCHC RDW Std Deviation Plt Count Neut % (Auto) Lymph % (Auto) Reeves % (Auto) Eos % (Auto) Baso % (Auto) Neut # (Auto) Lymph # (Auto) Reeves # (Auto) Eos # (Auto) Baso # (Auto) Immature Gran # (Auto) Absolute Nucleated RBC Immature Gran % Nucleated RBC % PT INR APTT Puncture Site Right Radial ABG pH 7.35 ABG pCO2 41 ABG pO2 121 H ABG HCO3 23 ABG O2 Saturation 99 H ABG Base Excess -3 FiO2 2 Sodium Potassium Chloride Carbon Dioxide Anion Gap BUN Creatinine Estim Creat Clear Calc eGFR BUN/Creatinine Ratio Glucose Calculated Osmolality 294 Lactic Acid 1.7 Calcium Cancelled 7.6 L Corrected Calcium Phosphorus 10.7 H Magnesium 1.1 L Total Bilirubin AST ALT Alkaline Phosphatase Troponin I Total Protein Albumin Globulin Albumin/Globulin Ratio Procalcitonin 0.51 H Ur Collection Type Urine Color Urine Clarity Urine pH Ur Specific [place] Urine Protein Urine Glucose (UA) Urine Ketones Urine Blood Urine Nitrite Urine Bilirubin Urine Urobilinogen (Auto) Ur Leukocyte Esterase Urine RBC Urine WBC Ur Squamous Epith Cells Urine Bacteria Urine Yeast (Budding) Hepatitis A IgM Ab Hep Bs Antigen Hep Bs Antibody Hep B Core IgM Ab Hepatitis C Antibody 03/21/24 08:35 WBC RBC Hgb Hct MCV MCH MCHC RDW Std Deviation Plt Count Neut % (Auto) Lymph % (Auto) Reeves % (Auto) Eos % (Auto) Baso % (Auto) Neut # (Auto) Lymph # (Auto) Reeves # (Auto) Eos # (Auto) Baso # (Auto) Immature Gran # (Auto) Absolute Nucleated RBC Immature Gran % Nucleated RBC % PT 12.7 H D INR 1.2 APTT 33.3 Puncture Site ABG pH ABG pCO2 ABG pO2 ABG HCO3 ABG O2 Saturation ABG Base Excess FiO2 Sodium Potassium 5.6 H D Chloride Carbon Dioxide Anion Gap BUN Creatinine Estim Creat Clear Calc eGFR BUN/Creatinine Ratio Glucose Calculated Osmolality Lactic Acid Calcium Corrected Calcium Phosphorus Magnesium Total Bilirubin AST ALT Alkaline Phosphatase Troponin I 0.307 H* Total Protein Albumin Globulin Albumin/Globulin Ratio Procalcitonin Ur Collection Type Urine Color Urine Clarity Urine pH Ur Specific [place] Urine Protein Urine Glucose (UA) Urine Ketones Urine Blood Urine Nitrite Urine Bilirubin Urine Urobilinogen (Auto) Ur Leukocyte Esterase Urine RBC Urine WBC Ur Squamous Epith Cells Urine Bacteria Urine Yeast (Budding) Hepatitis A IgM Ab Non Reactive Hep Bs Antigen Non Reactive Hep Bs Antibody NonReact(Not Immune) L Hep B Core IgM Ab Non Reactive Hepatitis C Antibody Non Reactive ABG Interpretation ABG results: 03/21/24 05:40 ABG pH 7.35 ABG pCO2 41 ABG pO2 121 H ABG HCO3 23 ABG O2 Saturation 99 H ABG Base Excess -3 Quality Measures Quality Measures VTE prophylaxis and sepsis Current suspected stage: sepsis Possible source: skin/soft tissue Blood cultures ordered: yes Antibiotic ordered: Yes Advance care planning discussed with:: patient Assessment & Plan Assessment Current Active Medications: Generic Name Dose Route Start Last Admin Trade Name Freq PRN Reason Stop Dose Admin Acetaminophen 650 mg 03/21/24 05:19 Acetaminophen 325 Mg Tablet PO 04/20/24 05:18 Q6H PRN Fever >101.5 Heparin Sodium (Porcine) 5,000 unit 03/21/24 06:00 03/21/24 05:57 Heparin Sod Inj 5000 Unit/Ml Vial SC 04/04/24 05:59 5,000 unit Q8HR ASHISH Administration Sodium Chloride 1,000 mls @ 75 mls/hr 03/21/24 05:30 03/21/24 05:37 Ns IV 03/21/24 18:49 75 mls/hr .[id number] ASHISH Administration Piperacillin/Tazobactam/Dextrose 50 mls @ 12.5 mls/hr 03/21/24 21:00 Zosyn IV 03/28/24 20:59 Q12HR ASHISH Protocol Albumin Human 25 gm in 100 mls @ 100 mls/min 03/21/24 10:54 Albuminar-25 Ivpb IV PRN PRN DIALYSIS Levothyroxine Sodium 112 mcg/ 137 mcg 03/21/24 07:30 03/21/24 10:12 Levothyroxine Sodium 25 mcg PO 04/20/24 07:29 137 mcg ACBR ASHISH Administration Ondansetron HCl 4 mg 03/21/24 06:08 Ondansetron Inj 2 Mg/Ml Inj 2 Ml IV 04/20/24 06:07 Q6H PRN NAUSEA OR VOMITING Protocol Sevelamer Carbonate 800 mg 03/21/24 12:00 03/21/24 12:38 Sevelamer Carbonate 800 Mg Tablet PO 04/20/24 11:59 Not Given TIDWM ASHISH Sodium Chloride 3 ml 03/21/24 08:25 Sodium Chloride Rt Tia 0.9% 3 Ml Nebu INH 04/20/24 08:24 PRN PRN SOLN Plan Summary: The patient is a 78-year-old female with a past medical history of hypothyroidism, hypertension, JACKIE, asthma, depression, dementia, recurrent UTI, and is status post hemicolectomy with ileostomy admitted for acute uremic encephalopathy, stage III acute kidney injury, sepsis secondary to UTI versus intra-abdominal abscess. #Acute encephalopathy uremic vs infections #Acute kidney injury, Decreased p.o. intake in the last 2 to 3 days with nausea and vomiting and presence of ileostomy, thus likely prerenal. However, given extensive elevation in creatinine and drop in GFR other etiologies cannot be excluded. Initial creatinine 9.5 (BL 1.0), BUN 121. Will have received total of 3.5 L of IVF. On admission, patient was noted to have hyperkalemia, increased BUN and creatinine of up to 9.5 as well as hyperphosphatemia. UA was positive for UTI, CT abdomen pelvis showed some suspicion for intra-abdominal abscess. The patient was given 3.5 L of NS and 1 dose of ceftriaxone and admitted for management of sepsis secondary to UTI versus intra-abdominal abscess. On review today, patient's potassium was found to be 6.6 and she was started on a hyperkalemic protocol-5 units of insulin, D50 and given 800 mg of sevelamer. Clinically, she no longer has episodes of vomiting or nausea and mentation is back to baseline. Nephrology was consulted for urgent hemodialysis. Plan: ? Hyperkalemia protocol- repeat potassium (5.6) ? Nephrology consulted for dialysis -IR catheter placement -Maintenance fluids IV NS at 75 cc/h -Continue to monitor CMP ? Avoid nephrotoxins ? Renally dose medications #Sepsis, secondary to #UTI versus intra-abdominal abscess #History of recurrent UTI CT A/P prelim report shows possible intra-abdominal abscess. Patient reports dysuria and cloudy urine, noted to have recurrent UTIs. Most recent urine cultures positive for E. coli, pansensitive. WBC on admission-20.9 Additionally, patient is on IV Zosyn for sepsis management. General surgeon Dr. Flynn consulted, recommends to continue wound care Plan: ? General Surgeon Dr. Flynn consulted, following recommendations ? Continue IV Zosyn 2.25 g IV every 8 hours ? Follow-up urine culture and blood culture -Continue monitor CBC #Electrolyte imbalances #Hyponatremia #Hyperkalemia #Hypochloremia #Hypocalcemia #Hyperphosphatemia #Hypomagnesemia -Hyperkalemic protocol initiated with 5 units of insulin, D50 and sevelamer as well as albuterol. -IVF NS @75cc/hr -Urgent dialysis Plan: ? Nephrology consulted as above ? Continue to monitor CMP #History of hypothyroidism Plan ? Resume home medication levothyroxine 125 mcg before breakfast #History of hypertension Plan ? Resume home med- Metoprolol tartrate 25mg BID -Hydralazine 10mg Q6HR PRN for SBP >160 #History of depression #History of dementia #History of bipolar #History of anxiety Plan ? Resume home medications donepezil and memantine -Once clinical status improved, resume nortriptyline #History of obstructive sleep apnea Plan ? CPAP at bedtime as needed #History of asthma Plan ? DuoNebs every 4 hours breathing treatment as needed Hospital management: Disposition: 2-3 hospital nights Fluids: 1 L NS at 75 mL/hr Diet: dysphagia 1 - pureed Lines: peripheral DVT prophylaxis: heparin SC GI prophylaxis: not indicated [place]: placed CODE STATUS: full code Case was discussed with senior resident Dr Vang PGY-3 and attending physician, Dr Natalio Guerrero MD PGY-1 Attending Provider Attestation/Addendum Face to face evaluation was performed by me. I have personally seen and examined the patient. I discussed the assessment and plan with the entire medicine team. I reviewed available medical records, imaging studies, laboratory results. I agree with the above subjective data, objective findings, assessment and plan except as corrected by me or noted below acute encephalopathy recurrent uti possible intra abdominal abscess on imaging? empiric IV Avxs follow consultants recommendations
[2024-03-21] MEDS: HEPARIN SOD INJ 1000 UNIT/ML VIAL 3700 UNIT INDWELLCAT (15:05)
--- NOTE | 2024-03-21 15:16 | PC.NURSE ---
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
--- NOTE | 2024-03-21 15:30 | PC.NURSE ---
Heparin not given to pt; per Lang Interpreter RN, do not give heparin at this time since pt just had dialysis cath placement procedure.
--- NOTE | 2024-03-21 15:47 | PC.NURSE ---
hand off report given to dick wyman. patient transfer back to er via [facility]. dressing clean dry and intact.
--- NOTE | 2024-03-21 15:50 | PC.NURSE ---
Pt's colostomy site on ABD red and leaking; pt dressing changed and colostomy site cleaned. Pt's colostomy wafers and colostomy bag changed. Linen change and gown change performed as well for pt. Pt given bed bath.
--- NOTE | 2024-03-21 16:00 | PC.NURSE ---
ATTEMPTED TO CALL REPORT AND NURSE UNAVAILABLE
--- NOTE | 2024-03-21 17:20 | PC.NURSE ---
Patient brought up from ED, tucked into bed and taken directly to Dialysis.
--- NOTE | 2024-03-21 19:19 | PC.NURSE ---
attempted to call Sahra, daughter at [phone]. No answer. Voicemail left with my name and call back number to receive information for admission.
[2024-03-21] MEDS: HEPARIN SOD INJ 1000 UNIT/ML VIAL 10 ML 3700 UNIT INDWELLCAT (20:09)
[2024-03-21] MEDS: DONEPEZIL HCL 5 MG TABLET 10 MG PO (21:37)
[2024-03-21] MEDS: MEMANTINE HCL 5 MG TABLET 10 MG PO (21:37)
[2024-03-21] MEDS: METOPROLOL TARTRATE 25 MG TABLET PO (21:37)
[2024-03-21] MEDS: PIPER/TAZO 3.375 GM 50 ML IV (21:38)
[2024-03-21 22:52] LABS: Albumin, Serum 3.4 gm/dL (3.4-4.8); Anion Gap 8 (7-16); BUN/Creatinine Ratio 14 Ratio (12-20); Blood Urea Nitrogen 59 mg/dL (9-23); Calcium 8.9 mg/dL (8.3-10.6); Calcium (Corrected) 9.4 mg/dL (8.5-10.1); Carbon Dioxide 26.6 mMol/L (20.0-31.0); Chloride 95 mMol/L (98-107); Creatinine (Component) 4.2 mg/dL (0.6-1.3); Estimated Creatinine Clearance 9.8 mL/min (>60); Glucose 101 mg/dL (74-106); Osmolality,Calculated 277 (275-295); Phosphorous 5.1 mg/dL (2.4-5.1); Potassium 4.1 mMol/L (3.4-5.1); Sodium 130 mMol/L (136-145); eGFR 10 See Note
--- NOTE | 2024-03-21 23:55 | PC.NURSE ---
SPOKE WITH JASMEET PEREZ REGARDING FREQ PAC'S, PVC'S. MG THIS AM WAS 1.1, WAS COVERED WITH A TOTAL OF 6 GRAMS MAGNESIUM IV. HD PATIENT. NO C/O OF SOB, CP. BP STABLE. METOPROLOL GIVEN AROUND 2100. UNLESS PT BECOMES SYMPTOMATIC, CALL MD BACK TO RECHECK MG LEVEL. NO NEED TO CHECK MG LEVEL AT THIS TIME, PER MD.
[2024-03-22] VITALS (25 sets, daily range): BP systolic 113–155; BP diastolic 5–76; PULSE 62–71; RESP 13–98; TEMP 36.1–37.1; O2SAT 96–99; BMI 25.0
--- NOTE | 2024-03-22 03:11 | PC.NURSE ---
[facility] downtime 03/22/24 [phone]
[2024-03-22] MEDS: HEPARIN SOD INJ 5000 UNIT/ML VIAL SC ×2 (05:52→18:02)
[2024-03-22] MEDS: LEVOTHYROXINE SODIUM 112 MCG, LEVOTHYROXINE SODIUM 25 MCG 137 MCG PO (05:52)
[2024-03-22 06:16] LABS: Basophils % (Auto) 0 % (0-2.5); Eosinophils # (Auto) 0.1 Thou/mm3 (0.0-0.5); Eosinophils % (Auto) 1 % (0-10); Hemoglobin 10.3 g/dL (12.0-16.0); Immature Granulocytes % (Auto) 1 % (0-0); Immature Granulocytes Auto 0.19 Thou/mm3 (0.00-0.00); Lymphocytes # (Auto) 1.5 Thou/mm3 (1.0-4.8); Lymphocytes % (Auto) 10 % (10-50); Mean Corpuscular HGB Conc 33.2 g/dl (31.0-37.0); Mean Corpuscular Hemoglobin 28.1 pg (25.0-35.0); Mean Corpuscular Volume 85 fL (80-100); Monocytes # (Auto) 0.8 Thou/mm3 (0.0-0.8); Monocytes % (Auto) 6 % (0-12); Neutrophils # (Auto) 11.9 Thou/mm3 (1.8-7.7); Neutrophils % (Auto) 82 % (37-80); Nucleated Red Blood Cell % 0 /100 WBC (0); Platelet Count 300 Thou/mm3 (140-440); RDW Standard Deviation 47.6 fL (36.4-46.3); Red Blood Count 3.66 Miln/mm3 (4.00-5.20); White Blood Count 14.6 Thou/mm3 (3.6-11.0)
[2024-03-22 06:56] LABS: Anion Gap 10 (7-16); BUN/Creatinine Ratio 17 Ratio (12-20); Blood Urea Nitrogen 62 mg/dL (9-23); Calcium 8.6 mg/dL (8.3-10.6); Carbon Dioxide 25.4 mMol/L (20.0-31.0); Chloride 94 mMol/L (98-107); Creatinine (Component) 3.6 mg/dL (0.6-1.3); Estimated Creatinine Clearance 11.4 mL/min (>60); Glucose 91 mg/dL (74-106); Magnesium 2.3 mg/dL (1.6-2.6); Osmolality,Calculated 276 (275-295); Phosphorous 5.2 mg/dL (2.4-5.1); Potassium 4.1 mMol/L (3.4-5.1); Sodium 129 mMol/L (136-145); Thyroid Stimulating Hormone 2.99 uIU/mL (0.55-4.78); eGFR 12 See Note
--- NOTE | 2024-03-22 08:43 | PD.RESPRO ---
Documentation for date of: 03/22/24 Subjective Subjective Interval history: 78 y/o F with PMHx significant for hypothyroidism, hypertension, JACKIE, asthma, depression, dementia, recurrent UTI, and is status post hemicolectomy with ileostomy presents with altered mental status and nausea and vomiting. Patient initially presented to ED with altered mentation and was not able to provide history. Subsequently given 2.5 L of fluids per sepsis protocol and mentation slowly improved. Upon evaluation, patient endorsed 2 to 3 days of nausea and vomiting along with decreased p.o. intake. Also endorses abdominal pain at ileostomy site, decreased ileostomy output, as well as dysuria and cloudy urine but denies fever or chills. Otherwise also denies shortness of breath or chest discomfort. Of note, patient recently discharged on 02/15 for ileostomy leakage/malfunction. CT head unremarkable. CT A/P showed Soft tissue mass in the anterior abdominal wall 2.8 x 2.2 cm and aggregate of small bowel versus abscess in the right lower abdomen poorly defined, at least 4 cm in dimension. Patient recieved IVF, magnesisum, zosyn and rocephin in ED. Labs showed sodium 125, potassium 6.6, BUN 134, Agriculture Manager 9.3, eGFR 4, Corrected Ca 8.3, phos 10.7, Mg 1.1. Patient has no known history CKD. On exam patient was lethargic but responsive, followed commands, A&Ox3. Appears euvolemic. Nephrology consulted for acute renal failure, plan for emergent dialysis. 03/22: Patient seen and examined in bed. Patient remains lethargic. Signs of leaking around ileostomy bag. Labs significantly improved after dialysis session yesterday. Sodium 129, potassium 4.1, bicarb 25.4, BUN 62, creatinine 2.6, eGFR 12. Plan for dialysis today. Prelim urine culture positive for gram-negative rods. Patient currently on Zosyn. Exam Vital Signs Temp Pulse Resp BP Pulse Ox O2 Del Method O2 Flow Rate 97.2 F 65 14 133/52 H 97 Nasal Cannula 2 03/22/24 04:00 03/22/24 07:53 03/22/24 07:53 03/22/24 04:00 03/22/24 07:53 03/21/24 20:43 03/21/24 20:43 Narrative Exam PE: Gen: Well-developed and well-nourished. Elderly frail lady. HEENT: NCAT, PERRLA, EOMI, MMM, anicteric conjunctivae. CVS: normal S1 and S2. RRR. No M/R/G. Resp: Mild rhonchi Righ upper lung field. Diffuse coarse lung sounds. Abd: soft, non-tender, non-distended. Illeostomy, signs of leaking. MSK: Good ROM in BUE & BLE. No edema or rash. Neuro: CN II-XII grossly intact. Strength 4/5 in BUE & BLE. Alert and oriented x3. Lethargic. Objective Labs 03/23/24 05:32 03/23/24 05:32 Labs: Laboratory Results - last 24 hr 03/21/24 03/21/24 03/22/24 08:35 22:24 05:18 WBC 14.6 H D RBC 3.66 L Hgb 10.3 L D Hct 31.0 L MCV 85 MCH 28.1 MCHC 33.2 RDW Std Deviation 47.6 H Plt Count 300 D Neut % (Auto) 82 H Lymph % (Auto) 10 [place] % (Auto) 6 Eos % (Auto) 1 Baso % (Auto) 0 Neut # (Auto) 11.9 H Lymph # (Auto) 1.5 [place] # (Auto) 0.8 Eos # (Auto) 0.1 Baso # (Auto) 0.0 Immature Gran # (Auto) 0.19 H Absolute Nucleated RBC 0.00 Immature Gran % 1 H Nucleated RBC % 0 PT 12.7 H D INR 1.2 APTT 33.3 Sodium 130 L 129 L Potassium 5.6 H D 4.1 D 4.1 Chloride 95 L 94 L Carbon Dioxide 26.6 25.4 Anion Gap 8 10 BUN 59 H 62 H Creatinine 4.2 H* D 3.6 H D Estim Creat Clear Calc 9.8 L 11.4 L eGFR 10 L* 12 L* BUN/Creatinine Ratio 14 17 Glucose 101 91 Calculated Osmolality 277 276 Calcium 8.9 8.6 Corrected Calcium 9.4 Phosphorus 5.1 5.2 H Magnesium 2.3 Troponin I 0.307 H* Albumin 3.4 TSH 2.99 D Hepatitis A IgM Ab Non Reactive Hep Bs Antigen Non Reactive Hep Bs Antibody NonReact(Not Immune) L Hep B Core IgM Ab Non Reactive Hepatitis C Antibody Non Reactive ABG Interpretation ABG results: 03/21/24 05:40 ABG pH 7.35 ABG pCO2 41 ABG pO2 121 H ABG HCO3 23 ABG O2 Saturation 99 H ABG Base Excess -3 Quality Measures Quality Measures VTE prophylaxis and sepsis Current suspected stage: sepsis Possible source: skin/soft tissue Blood cultures ordered: yes Antibiotic ordered: Yes Advance care planning discussed with:: patient Assessment & Plan Assessment Current Active Medications: Generic Name Dose Route Start Last Admin Trade Name Freq PRN Reason Stop Dose Admin Acetaminophen 650 mg 03/21/24 05:19 Acetaminophen 325 Mg Tablet PO 04/20/24 05:18 Q6H PRN Fever >101.5 Albuterol/Ipratropium 3 ml 03/21/24 15:51 Albuterol/Ipratropium (Duoneb) Rt Tia 3 Ml Nebu INH 04/20/24 18:59 Q4HRRT PRN Shortness of breath Donepezil HCl 10 mg 03/21/24 21:00 03/21/24 21:37 Donepezil Hcl 5 Mg Tablet PO 04/20/24 20:59 10 mg HS ASHISH Administration Heparin Sodium (Porcine) 5,000 unit 03/21/24 06:00 03/22/24 05:52 Heparin Sod Inj 5000 Unit/Ml Vial SC 04/04/24 05:59 5,000 unit Q8HR ASHISH Administration Heparin Sodium (Porcine) 3,700 unit 03/21/24 17:43 03/21/24 20:09 Heparin Sod Inj 1000 Unit/Ml Vial 10 Ml INDWELLCAT 04/04/24 17:42 3,700 unit PRN PRN Administration DIALYSIS Hydralazine HCl 10 mg 03/21/24 15:45 Hydralazine Hcl 10 Mg Tablet PO 04/20/24 17:59 Q6HR PRN SBP>160 Piperacillin/Tazobactam/Dextrose 50 mls @ 12.5 mls/hr 03/21/24 21:00 03/21/24 21:38 Zosyn IV 03/28/24 20:59 12.5 mls/hr Q12HR ASHISH Administration Protocol Albumin Human 25 gm in 100 mls @ 100 mls/min 03/21/24 10:54 Albuminar-25 Ivpb IV PRN PRN DIALYSIS Levothyroxine Sodium 112 mcg/ 137 mcg 03/21/24 07:30 03/22/24 05:52 Levothyroxine Sodium 25 mcg PO 04/20/24 07:29 137 mcg ACBR ASHISH Administration Memantine 10 mg 03/21/24 21:00 03/21/24 21:37 Memantine Hcl 5 Mg Tablet PO 04/20/24 20:59 10 mg BID ASHISH Administration Metoprolol Tartrate 25 mg 03/21/24 21:00 03/21/24 21:37 Metoprolol Tartrate 25 Mg Tablet PO 04/20/24 20:59 25 mg BID ASHISH Administration Ondansetron HCl 4 mg 03/21/24 06:08 Ondansetron Inj 2 Mg/Ml Inj 2 Ml IV 04/20/24 06:07 Q6H PRN NAUSEA OR VOMITING Protocol Sevelamer Carbonate 800 mg 03/21/24 12:00 03/21/24 21:30 Sevelamer Carbonate 800 Mg Tablet PO 04/20/24 11:59 Not Given TIDWM ASHISH Sodium Chloride 3 ml 03/21/24 08:25 Sodium Chloride Rt Tia 0.9% 3 Ml Nebu INH 04/20/24 08:24 PRN PRN SOLN Plan 78 y/o F with PMHx significant for hypothyroidism, hypertension, JACKIE, asthma, depression, dementia, recurrent UTI, and is status post hemicolectomy with ileostomy admitted for acute uremic encephalopathy, stage III acute kidney injury, sepsis secondary to UTI versus intra-abdominal abscess. #Acute uremic encephalopathy #Acute kidney injury-suspect patient in ischemic ATN Decreased p.o. intake in the last 2 to 3 days with nausea and vomiting and presence of ileostomy, thus likely prerenal. However, given extensive elevation in creatinine and drop in GFR other etiologies cannot be excluded. Initial creatinine 9.5 (BL 1.0), BUN 121, which worsened to Agriculture Manager 9.3, BUN 134, eGFR 4. Will have received total of 3.5 L of IVF. Patient received dialysis with improvement in renal function. -Hemodialysis session today -Avoid nephrotoxins -Renally dose medications -daily labs #Sepsis, secondary to #UTI, gram-negative rods #Electrolyte imbalances #Hypothyroidism #Hypertension #Depression #Dementia Management as per primary team. Thank you for allowing me to participate in the care of this patient. Plan of care discussed with my attending Dr. Rahman. Vadim Price MD PGY-1 Attending Provider Attestation/Addendum Patient seen and examined with resident physician Dr. Price. Note reviewed, agree with findings and recommendations. Patient currently seen on dialysis. Tolerating dialysis without any problems. Hemodialysis for 3 hours, 2K, ultrafiltration 0 L, Epogen 6000, no heparin ordered. Plan of care discussed with the dialysis nurse. Please see dialysis flowsheet for further details. Patient started to make urine. Most likely ischemic ATN. If azotemia improves-will hold dialysis tomorrow and wait for renal recovery.
--- NOTE | 2024-03-22 08:46 | PC.SS ---
Update: Plan is for patient to receive dialysis today. Patient will be new dialysis patient. Dr. Rahman hand spring repairer helper.
[2024-03-22 09:11] LABS: Troponin I 0.215 ng/mL (0.0-0.045)
[2024-03-22] MEDS: SEVELAMER CARBONATE 800 MG TABLET PO ×3 (09:19→18:02)
[2024-03-22] MEDS: METOPROLOL TARTRATE 25 MG TABLET PO ×2 (09:19→20:22)
[2024-03-22] MEDS: MEMANTINE HCL 5 MG TABLET 10 MG PO ×2 (09:20→20:22)
[2024-03-22] MEDS: PIPER/TAZO 3.375 GM 50 ML IV (09:20)
--- NOTE | 2024-03-22 10:12 | PC.NURSE ---
Dialysis Tx Initiated, 2nd Tx, No UF, Ellen - wound nurse on site to chamge ostomy bag, eugene
--- NOTE | 2024-03-22 11:39 | CHAP ---
Patient was visited by a Spiritual Care volunteer on 03/22/2024 between 0900 and 1000 and received prayer.
--- NOTE | 2024-03-22 12:31 | PC.NURSE ---
Uneventfull 3-Hour Tx, no UF Loss, report to PCN
--- NOTE | 2024-03-22 13:38 | ESPR_ITS ---
<Statement entered by Alyson Vang MD - 03/22/24 15:16> Senior Resident Attestation: I supervised/discussed management plan with Resident physician Dr. Guerrero, and was involved in the care of this patient. I personally saw and examined the patient and discussed the assessment and plan with the entire medicine team, including my attending. I agree with the assessment and plan as documented. Patient's care was discussed with attending physician, Dr. Maru Vang MD PGY-3 Documentation for date of: 03/22/24 Subjective Subjective Interval history: Patient seen at bedside. No acute overnight events. Temporary dialysis catheter was placed yesterday, patient received dialysis with no fluid removal. WBC downtrending, 14.6 today. Blood culture negative, Urine culture returned positive for gram-negative rods, patient currently on IV Zosyn. Evaluated by general surgeon Dr. Flynn, recommends continue wound care. Nephrology on board, patient will receive another session of dialysis today. Labs today with BUN and creatinine improving. Patient's mentation is back to baseline, she is AAOx3 and has no complaints. Troponins downtrending. Exam Vital Signs Temp Pulse Resp BP Pulse Ox O2 Del Method O2 Flow Rate 97.7 F 66 18 117/46 L 96 Room Air 2 03/22/24 12:36 03/22/24 12:36 03/22/24 10:04 03/22/24 12:36 03/22/24 12:36 03/22/24 08:00 03/22/24 10:04 Narrative Exam GENERAL: AAOX3 NEURO: TRIPE SCRAPER grossly intact, moves extremities x4 HEENT: Dry mucosa. Eyes open, symmetrical, & clear CARDIO: No chest pain on palpation. Heart RRR, no obvious murmurs PULM: No noted coughing/dyspnea. Lungs CTA B/L, GI: Abdomen soft, nondistended, no pain on palpation. Colostomy area seen, mild cellulitis seen in surrounding area. BSx4 URO/LEATHER TOGGLER:: No further abnormalities noted. SKIN/MSK/EXT: No wounds/rashes/edema/amputations, no pain on palpation. Pedal pulses present B/L Objective Labs 03/22/24 05:18 03/22/24 05:18 Labs: Laboratory Results - last 24 hr 03/21/24 03/22/24 22:24 05:18 WBC 14.6 H D RBC 3.66 L Hgb 10.3 L D Hct 31.0 L MCV 85 MCH 28.1 MCHC 33.2 RDW Std Deviation 47.6 H Plt Count 300 D Neut % (Auto) 82 H Lymph % (Auto) 10 [place] % (Auto) 6 Eos % (Auto) 1 Baso % (Auto) 0 Neut # (Auto) 11.9 H Lymph # (Auto) 1.5 [place] # (Auto) 0.8 Eos # (Auto) 0.1 Baso # (Auto) 0.0 Immature Gran # (Auto) 0.19 H Absolute Nucleated RBC 0.00 Immature Gran % 1 H Nucleated RBC % 0 Sodium 130 L 129 L Potassium 4.1 D 4.1 Chloride 95 L 94 L Carbon Dioxide 26.6 25.4 Anion Gap 8 10 BUN 59 H 62 H Creatinine 4.2 H* D 3.6 H D Estim Creat Clear Calc 9.8 L 11.4 L eGFR 10 L* 12 L* BUN/Creatinine Ratio 14 17 Glucose 101 91 Calculated Osmolality 277 276 Calcium 8.9 8.6 Corrected Calcium 9.4 Phosphorus 5.1 5.2 H Magnesium 2.3 Troponin I 0.215 H* Albumin 3.4 TSH 2.99 D ABG Interpretation ABG results: 03/21/24 05:40 ABG pH 7.35 ABG pCO2 41 ABG pO2 121 H ABG HCO3 23 ABG O2 Saturation 99 H ABG Base Excess -3 Quality Measures Quality Measures VTE prophylaxis and sepsis Current suspected stage: sepsis Possible source: skin/soft tissue Blood cultures ordered: yes Antibiotic ordered: Yes Advance care planning discussed with:: patient Assessment & Plan Assessment Current Active Medications: Generic Name Dose Route Start Last Admin Trade Name Freq PRN Reason Stop Dose Admin Acetaminophen 650 mg 03/21/24 05:19 Acetaminophen 325 Mg Tablet PO 04/20/24 05:18 Q6H PRN Fever >101.5 Albuterol/Ipratropium 3 ml 03/21/24 15:51 Albuterol/Ipratropium (Duoneb) Rt Tia 3 Ml Nebu INH 04/20/24 18:59 Q4HRRT PRN Shortness of breath Donepezil HCl 10 mg 03/21/24 21:00 03/21/24 21:37 Donepezil Hcl 5 Mg Tablet PO 04/20/24 20:59 10 mg HS ASHISH Administration Heparin Sodium (Porcine) 3,700 unit 03/21/24 17:43 03/21/24 20:09 Heparin Sod Inj 1000 Unit/Ml Vial 10 Ml INDWELLCAT 04/04/24 17:42 3,700 unit PRN PRN Administration DIALYSIS Heparin Sodium (Porcine) 5,000 unit 03/22/24 17:30 Heparin Sod Inj 5000 Unit/Ml Vial SC 04/05/24 17:29 Q12HR ASHISH Hydralazine HCl 10 mg 03/21/24 15:45 Hydralazine Hcl 10 Mg Tablet PO 04/20/24 17:59 Q6HR PRN SBP>160 Piperacillin/Tazobactam/Dextrose 50 mls @ 12.5 mls/hr 03/21/24 21:00 03/22/24 09:20 Zosyn IV 03/28/24 20:59 12.5 mls/hr Q12HR ASHISH Administration Protocol Albumin Human 25 gm in 100 mls @ 100 mls/min 03/21/24 10:54 Albuminar-25 Ivpb IV PRN PRN DIALYSIS Levothyroxine Sodium 112 mcg/ 137 mcg 03/21/24 07:30 03/22/24 05:52 Levothyroxine Sodium 25 mcg PO 04/20/24 07:29 137 mcg ACBR ASHISH Administration Memantine 10 mg 03/21/24 21:00 03/22/24 09:20 Memantine Hcl 5 Mg Tablet PO 04/20/24 20:59 10 mg BID ASHISH Administration Metoprolol Tartrate 25 mg 03/21/24 21:00 03/22/24 09:19 Metoprolol Tartrate 25 Mg Tablet PO 04/20/24 20:59 25 mg BID ASHISH Administration Ondansetron HCl 4 mg 03/21/24 06:08 Ondansetron Inj 2 Mg/Ml Inj 2 Ml IV 04/20/24 06:07 Q6H PRN NAUSEA OR VOMITING Protocol Sevelamer Carbonate 800 mg 03/21/24 12:00 03/22/24 13:20 Sevelamer Carbonate 800 Mg Tablet PO 04/20/24 11:59 800 mg TIDWM ASHISH Administration Sodium Chloride 3 ml 03/21/24 08:25 Sodium Chloride Rt Tia 0.9% 3 Ml Nebu INH 04/20/24 08:24 PRN PRN SOLN Plan Summary: The patient is a 78-year-old female with a past medical history of hypothyroidism, hypertension, JACKIE, asthma, depression, dementia, recurrent UTI, and is status post hemicolectomy with ileostomy admitted for acute uremic encephalopathy, stage III acute kidney injury, sepsis secondary to UTI versus intra-abdominal abscess. #Acute encephalopathy uremic vs infections #Acute kidney injury, Decreased p.o. intake in the last 2 to 3 days with nausea and vomiting and presence of ileostomy, thus likely prerenal. However, given extensive elevation in creatinine and drop in GFR other etiologies cannot be excluded. Initial creatinine 9.5 (BL 1.0), BUN 121. Will have received total of 3.5 L of IVF. On admission, patient was noted to have hyperkalemia, increased BUN and creatinine of up to 9.5 as well as hyperphosphatemia. UA was positive for UTI, CT abdomen pelvis showed some suspicion for intra-abdominal abscess. The patient was given 3.5 L of NS and 1 dose of ceftriaxone and admitted for management of sepsis secondary to UTI versus intra-abdominal abscess. On review today, patient's potassium was found to be 6.6 and she was started on a hyperkalemic protocol-5 units of insulin, D50 and given 800 mg of sevelamer. Clinically, she no longer has episodes of vomiting or nausea and mentation is back to baseline. Nephrology was consulted for urgent hemodialysis. 03/22/2024- Temporary dialysis catheter was placed yesterday, patient received dialysis with no fluid removal. Nephrology on board, patient will receive another session of dialysis today. Labs today with BUN and creatinine improving. Patient's mentation is back to baseline, she is AAOx3 and has no complaints Plan: -Hemodialysis today -Nephrology on board, following recommendations -Continue to monitor CMP -Avoid nephrotoxins -Renally dose medications #Sepsis, secondary to #UTI versus intra-abdominal abscess #History of recurrent UTI CT A/P prelim report shows possible intra-abdominal abscess. Patient reports dysuria and cloudy urine, noted to have recurrent UTIs. Most recent urine cultures positive for E. coli, pansensitive. WBC on admission-20.9 Additionally, patient is on IV Zosyn for sepsis management. General surgeon Dr. Flynn consulted, recommends to continue wound care 03/22/2024- WBC downtrending, 14.6 today. Blood culture negative, Urine culture returned positive for gram-negative rods, patient currently on IV Zosyn. Evaluated by general surgeon Dr. Flynn, recommends continue wound care. Plan: ? Continue IV Zosyn 2.25 g IV every 8 hours ? General Surgeon Dr. Flynn consulted, following recommendations - Wound care --Continue to monitor CBC #Electrolyte imbalances #Hyponatremia #Hyperkalemia-resolved #Hypochloremia #Hypocalcemia #Hyperphosphatemia #Hypomagnesemia-resolved -Hyperkalemic protocol initiated with 5 units of insulin, D50 and sevelamer as well as albuterol. -IVF NS @75cc/hr -Urgent dialysis Plan: ? Nephrology consulted as above for dialysis ? Continue to monitor CMP #History of hypothyroidism Plan ? Resume home medication levothyroxine 125 mcg before breakfast #History of hypertension Plan ? Resume home med- Metoprolol tartrate 25mg BID -Hydralazine 10mg Q6HR PRN for SBP >160 #History of depression #History of dementia #History of bipolar #History of anxiety Plan ? Resume home medications donepezil and memantine -Once clinical status improved, resume nortriptyline #History of obstructive sleep apnea Plan ? CPAP at bedtime as needed #History of asthma Plan ? DuoNebs every 4 hours breathing treatment as needed Hospital management: Disposition: 2-3 hospital nights Fluids: 1 L NS at 75 mL/hr Diet: dysphagia 1 - pureed Lines: peripheral DVT prophylaxis: heparin SC GI prophylaxis: not indicated [place]: placed CODE STATUS: full code Case was discussed with senior resident Dr Vang PGY-3 and attending physician, Dr Maru Guerrero MD PGY-1 Attending Provider Attestation/Addendum I have discussed and was present for the essential components of the history, physical examination, diagnosis, and treatment plan with the resident. I agree with the patient's care as documented by the resident and amended herein by me. Casey Mahoney DO. Although this document has been carefully reviewed, there may still be some phonetic and other typographical errors. These errors are purely grammatical due to imperfections in the software program and should not be construed in any way to compromise the substance of the patient's medical care during this visit.
--- NOTE | 2024-03-22 14:42 | PC.SS ---
Rounding Note: Patient receiving IV antibiotics. Hep panel and TB test requested. Patient will be new outpatient dialysis patient. Dr. Rahman pattern hanger.
[2024-03-22] MEDS: TUBERCULIN PPD INJ 5 UNIT/0.1 ML DOSE ID (15:10)
[2024-03-22] MEDS: cefTRIAXone/D5w 1gm IV premix 50 ML IV (19:59)
[2024-03-22] MEDS: DONEPEZIL HCL 5 MG TABLET 10 MG PO (20:22)
[2024-03-23] VITALS (11 sets, daily range): BP systolic 109–150; BP diastolic 56–88; PULSE 64–81; RESP 14–100; TEMP 36.1–36.8; O2SAT 93–100
[2024-03-23] MEDS: LEVOTHYROXINE SODIUM 112 MCG, LEVOTHYROXINE SODIUM 25 MCG 137 MCG PO (05:49)
[2024-03-23 05:54] LABS: Basophils % (Auto) 0 % (0-2.5); Eosinophils % (Auto) 0 % (0-10); Hematocrit 28.8 % (36.0-46.0); Hemoglobin 9.4 g/dL (12.0-16.0); Immature Granulocytes % (Auto) 2 % (0-0); Immature Granulocytes Auto 0.27 Thou/mm3 (0.00-0.00); Lymphocytes % (Auto) 14 % (10-50); Mean Corpuscular HGB Conc 32.6 g/dl (31.0-37.0); Mean Corpuscular Hemoglobin 28.6 pg (25.0-35.0); Mean Corpuscular Volume 88 fL (80-100); Monocytes # (Auto) 0.9 Thou/mm3 (0.0-0.8); Monocytes % (Auto) 6 % (0-12); Neutrophils # (Auto) 11.2 Thou/mm3 (1.8-7.7); Neutrophils % (Auto) 78 % (37-80); Nucleated Red Blood Cell % 0 /100 WBC (0); Platelet Count 300 Thou/mm3 (140-440); RDW Standard Deviation 49.2 fL (36.4-46.3); Red Blood Count 3.29 Miln/mm3 (4.00-5.20); White Blood Count 14.4 Thou/mm3 (3.6-11.0)
[2024-03-23 06:25] LABS: Anion Gap 5 (7-16); BUN/Creatinine Ratio 16 Ratio (12-20); Blood Urea Nitrogen 35 mg/dL (9-23); Calcium 8.6 mg/dL (8.3-10.6); Carbon Dioxide 28.7 mMol/L (20.0-31.0); Chloride 101 mMol/L (98-107); Creatinine (Component) 2.2 mg/dL (0.6-1.3); Estimated Creatinine Clearance 19.5 mL/min (>60); Glucose 121 mg/dL (74-106); Magnesium 1.9 mg/dL (1.6-2.6); Osmolality,Calculated 279 (275-295); Phosphorous 2.9 mg/dL (2.4-5.1); Potassium 3.7 mMol/L (3.4-5.1); Sodium 135 mMol/L (136-145); eGFR 22 See Note
[2024-03-23] MEDS: HEPARIN SOD INJ 5000 UNIT/ML VIAL SC ×2 (08:42→21:00)
[2024-03-23] MEDS: METOPROLOL TARTRATE 25 MG TABLET PO ×2 (08:42→20:57)
[2024-03-23] MEDS: cefTRIAXone/D5w 1gm IV premix 50 ML IV (08:43)
[2024-03-23] MEDS: MEMANTINE HCL 5 MG TABLET 10 MG PO ×2 (08:52→20:57)
--- NOTE | 2024-03-23 09:04 | PC.SS ---
Update: Plan is to de-escalate patient's antibiotics. Pending surgery recommendations.
[2024-03-23] MEDS: metroNIDAZOLE/NS 500 MG IVPB 500 MG/100 ML BAG 100 MG IV ×3 (09:10→21:09)
--- NOTE | 2024-03-23 09:17 | PC.CM ---
Patient is opened to [facility] health. Patient will need new home health orders if he is discharges home.
--- NOTE | 2024-03-23 09:17 | PD.RESPRO ---
Documentation for date of: 03/23/24 Subjective Subjective Interval history: 78 y/o F with PMHx significant for hypothyroidism, hypertension, JACKIE, asthma, depression, dementia, recurrent UTI, and is status post hemicolectomy with ileostomy presents with altered mental status and nausea and vomiting. Patient initially presented to ED with altered mentation and was not able to provide history. Subsequently given 2.5 L of fluids per sepsis protocol and mentation slowly improved. Upon evaluation, patient endorsed 2 to 3 days of nausea and vomiting along with decreased p.o. intake. Also endorses abdominal pain at ileostomy site, decreased ileostomy output, as well as dysuria and cloudy urine but denies fever or chills. Otherwise also denies shortness of breath or chest discomfort. Of note, patient recently discharged on 02/15 for ileostomy leakage/malfunction. CT head unremarkable. CT A/P showed Soft tissue mass in the anterior abdominal wall 2.8 x 2.2 cm and aggregate of small bowel versus abscess in the right lower abdomen poorly defined, at least 4 cm in dimension. Patient recieved IVF, magnesisum, zosyn and rocephin in ED. Labs showed sodium 125, potassium 6.6, BUN 134, Security System Technician 9.3, eGFR 4, Corrected Ca 8.3, phos 10.7, Mg 1.1. Patient has no known history CKD. On exam patient was lethargic but responsive, followed commands, A&Ox3. Appears euvolemic. Nephrology consulted for acute renal failure, plan for emergent dialysis. 03/22: Patient seen and examined in bed. Patient remains lethargic. Signs of leaking around ileostomy bag. Labs significantly improved after dialysis session yesterday. Sodium 129, potassium 4.1, bicarb 25.4, BUN 62, creatinine 2.6, eGFR 12. Plan for dialysis today. Prelim urine culture positive for gram-negative rods. Patient currently on Zosyn. 03/23: Patient seen and examined in bed. Patient is somewhat lethargic but improved from before. Sodium 135, potassium 3.7, bicarb 28.7, BUN 35, creatinine 2.2, eGFR 22. Will give 1 L normal saline at 70 mL/h and 40 mEq potassium p.o. No plans for dialysis today. Exam Vital Signs Temp Pulse Resp BP Pulse Ox O2 Del Method O2 Flow Rate 97.0 F 68 18 150/73 H 98 Room Air 1 03/23/24 04:00 03/23/24 08:42 03/23/24 06:40 03/23/24 08:42 03/23/24 06:40 03/22/24 16:00 03/23/24 06:40 Narrative Exam PE: Gen: Well-developed and well-nourished. Elderly frail lady. HEENT: NCAT, PERRLA, EOMI, MMM, anicteric conjunctivae. CVS: normal S1 and S2. RRR. No M/R/G. Resp: Mild rhonchi Righ upper lung field. Diffuse coarse lung sounds. Abd: soft, non-tender, non-distended. Illeostomy, signs of leaking. MSK: Good ROM in BUE & BLE. No edema or rash. Neuro: CN II-XII grossly intact. Strength 4/5 in BUE & BLE. Alert and oriented x3. Lethargic. Objective Labs 03/23/24 05:32 03/23/24 05:32 Labs: Laboratory Results - last 24 hr 03/23/24 05:32 WBC 14.4 H RBC 3.29 L Hgb 9.4 L Hct 28.8 L MCV 88 MCH 28.6 MCHC 32.6 RDW Std Deviation 49.2 H Plt Count 300 Neut % (Auto) 78 Lymph % (Auto) 14 [place] % (Auto) 6 Eos % (Auto) 0 Baso % (Auto) 0 Neut # (Auto) 11.2 H Lymph # (Auto) 2.0 [place] # (Auto) 0.9 H Eos # (Auto) 0.0 Baso # (Auto) 0.0 Immature Gran # (Auto) 0.27 H Absolute Nucleated RBC 0.00 Immature Gran % 2 H Nucleated RBC % 0 Sodium 135 L Potassium 3.7 Chloride 101 Carbon Dioxide 28.7 Anion Gap 5 L BUN 35 H Creatinine 2.2 H D Estim Creat Clear Calc 19.5 L eGFR 22 L BUN/Creatinine Ratio 16 Glucose 121 H Calculated Osmolality 279 Calcium 8.6 Phosphorus 2.9 Magnesium 1.9 ABG Interpretation ABG results: 03/21/24 05:40 ABG pH 7.35 ABG pCO2 41 ABG pO2 121 H ABG HCO3 23 ABG O2 Saturation 99 H ABG Base Excess -3 Quality Measures Quality Measures VTE prophylaxis and sepsis Current suspected stage: sepsis Possible source: skin/soft tissue Blood cultures ordered: yes Antibiotic ordered: Yes Advance care planning discussed with:: patient Assessment & Plan Assessment Current Active Medications: Generic Name Dose Route Start Last Admin Trade Name Freq PRN Reason Stop Dose Admin Acetaminophen 650 mg 03/21/24 05:19 Acetaminophen 325 Mg Tablet PO 04/20/24 05:18 Q6H PRN Fever >101.5 Albuterol/Ipratropium 3 ml 03/21/24 15:51 Albuterol/Ipratropium (Duoneb) Rt Tia 3 Ml Nebu INH 04/20/24 18:59 Q4HRRT PRN Shortness of breath Donepezil HCl 10 mg 03/21/24 21:00 03/22/24 20:22 Donepezil Hcl 5 Mg Tablet PO 04/20/24 20:59 10 mg HS ASHISH Administration Heparin Sodium (Porcine) 3,700 unit 03/21/24 17:43 03/21/24 20:09 Heparin Sod Inj 1000 Unit/Ml Vial 10 Ml [facility] 04/04/24 17:42 3,700 unit PRN PRN Administration DIALYSIS Heparin Sodium (Porcine) 5,000 unit 03/22/24 17:30 03/23/24 08:42 Heparin Sod Inj 5000 Unit/Ml Vial SC 04/05/24 17:29 5,000 unit Q12HR ASHISH Administration Hydralazine HCl 10 mg 03/21/24 15:45 Hydralazine Hcl 10 Mg Tablet PO 04/20/24 17:59 Q6HR PRN SBP>160 Albumin Human 25 gm in 100 mls @ 100 mls/min 03/21/24 10:54 Albuminar-25 Ivpb IV PRN PRN DIALYSIS Ceftriaxone Sodium/Dextrose 50 mls @ 100 mls/hr 03/22/24 18:52 03/23/24 08:43 Rocephin/D5w 1gm Iv Premix IV 03/29/24 18:51 100 mls/hr QDAY ASHISH Administration Metronidazole 500 mg in 100 mls @ 100 mls/hr 03/23/24 09:00 03/23/24 09:10 Flagyl 500 Mg Iv IV 03/30/24 08:59 100 mls/hr Q8HR ASHISH Administration Levothyroxine Sodium 112 mcg/ 137 mcg 03/21/24 07:30 03/23/24 05:49 Levothyroxine Sodium 25 mcg PO 04/20/24 07:29 137 mcg ACBR ASHISH Administration Memantine 10 mg 03/21/24 21:00 03/23/24 08:52 Memantine Hcl 5 Mg Tablet PO 04/20/24 20:59 10 mg BID ASHISH Administration Metoprolol Tartrate 25 mg 03/21/24 21:00 03/23/24 08:42 Metoprolol Tartrate 25 Mg Tablet PO 04/20/24 20:59 25 mg BID ASHISH Administration Ondansetron HCl 4 mg 03/21/24 06:08 Ondansetron Inj 2 Mg/Ml Inj 2 Ml IV 04/20/24 06:07 Q6H PRN NAUSEA OR VOMITING Protocol Sevelamer Carbonate 0.8 gm 03/23/24 09:00 Sevelamer Carbonate 0.8 Gm Packet (Non-Formulary) PO 04/22/24 08:59 TIDWM ASHISH Sodium Chloride 3 ml 03/21/24 08:25 Sodium Chloride Rt Tia 0.9% 3 Ml Nebu INH 04/20/24 08:24 PRN PRN SOLN Plan 78 y/o F with PMHx significant for hypothyroidism, hypertension, JACKIE, asthma, depression, dementia, recurrent UTI, and is status post hemicolectomy with ileostomy admitted for acute uremic encephalopathy, stage III acute kidney injury, sepsis secondary to UTI versus intra-abdominal abscess. #Acute uremic encephalopathy #Acute kidney injury-suspect patient in ischemic ATN Decreased p.o. intake in the last 2 to 3 days with nausea and vomiting and presence of ileostomy, thus likely prerenal. However, given extensive elevation in creatinine and drop in GFR other etiologies cannot be excluded. Initial creatinine 9.5 (BL 1.0), BUN 121, which worsened to Security System Technician 9.3, BUN 134, eGFR 4. Will have received total of 3.5 L of IVF. Patient received dialysis with improvement in renal function. -No plan for dialysis today -IVF: Normal saline at 70 mL/h x 1 L -Potassium 40 mEq p.o. x 1 -Avoid nephrotoxins -Renally dose medications -daily labs #Sepsis, secondary to #UTI, gram-negative rods #Electrolyte imbalances #Hypothyroidism #Hypertension #Depression #Dementia Management as per primary team. Thank you for allowing me to participate in the care of this patient. Plan of care discussed with my attending Dr. Rahman. Vadim Price MD PGY-1 Attending Provider Attestation/Addendum Patient seen and examined with resident physician Dr. Price. Note reviewed, agree with findings and recommendations. Patient's creatinine stable. Made more than 1.4 L of urine. Will hold off on dialysis. If creatinine trending down can go for CT abdomen with contrast for leakage from the ileostomy site. Will discuss with surgeon. Gentle IV fluids given today. Will replace electrolytes.
[2024-03-23] MEDS: SEVELAMER CARBONATE 0.8 GM PACKET (NON-FORMULARY) PO ×3 (10:31→17:42)
[2024-03-23] MEDS: SODIUM CHLORIDE 0.9% 1000 ML 1,000 ML 70 ML IV (10:31)
[2024-03-23] MEDS: POTASSIUM CHLORIDE 10% 20 MEQ/15 ML UDC 40 MEQ PO (10:43)
--- NOTE | 2024-03-23 13:29 | CHAP ---
10:30 AM Visited by spiritual care volunteer Provided prayer for Patient.
--- NOTE | 2024-03-23 14:25 | ESPR_ITS ---
<Statement entered by Alyson Vang MD - 03/23/24 16:08> Senior Resident Attestation: I supervised/discussed management plan with resident physician Dr. Guerrero, and was involved in the care of this patient. I personally saw and examined the patient and discussed the assessment and plan with the entire medicine team, including my attending. I agree with the assessment and plan as documented. Patient's care was discussed with attending physician, Dr. Maru Vang MD PGY-3 Documentation for date of: 03/23/24 Subjective Subjective Interval history: Patient seen at bedside. No acute overnight events. Mentation back to baseline, patient has no complaints is AAOx3. Patient had another session of dialysis yesterday, with no fluid removal. Labs show significant improvement with creatinine now at 2.2 potassium 3.7 and phosphorus 2.9. Urine culture returned positive for E. coli pansensitive will transition from IV Zosyn to IV ceftriaxone. Will add IV metronidazole for anaerobic coverage for ?intra-abdominal abscess. Nephrology on board, recommends IV fluids and potassium replacement for today. Will continue to monitor CMP and remove tunneled dialysis catheter tomorrow as necessary prior to discharge. Still pending surgery recs, however wound care is being done. Exam Vital Signs Temp Pulse Resp BP Pulse Ox O2 Del Method O2 Flow Rate 97.1 F 64 14 119/60 99 Room Air 1 03/23/24 12:00 03/23/24 12:00 03/23/24 12:00 03/23/24 12:00 03/23/24 12:00 03/23/24 12:00 03/23/24 06:40 Narrative Exam GENERAL: AAOX3 NEURO: V BELT INSPECTOR grossly intact, moves extremities x4 HEENT: Dry mucosa. Eyes open, symmetrical, & clear CARDIO: No chest pain on palpation. Heart RRR, no obvious murmurs PULM: No noted coughing/dyspnea. Lungs CTA B/L, GI: Abdomen soft, nondistended, no pain on palpation. Colostomy area seen, mild cellulitis seen in surrounding area. BSx4 URO/GLASS INSTALLER TECHNICIAN:: No further abnormalities noted. SKIN/MSK/EXT: No wounds/rashes/edema/amputations, no pain on palpation. Pedal pulses present B/L Objective Labs 03/23/24 05:32 03/23/24 05:32 Labs: Laboratory Results - last 24 hr 03/23/24 05:32 WBC 14.4 H RBC 3.29 L Hgb 9.4 L Hct 28.8 L MCV 88 MCH 28.6 MCHC 32.6 RDW Std Deviation 49.2 H Plt Count 300 Neut % (Auto) 78 Lymph % (Auto) 14 [place] % (Auto) 6 Eos % (Auto) 0 Baso % (Auto) 0 Neut # (Auto) 11.2 H Lymph # (Auto) 2.0 [place] # (Auto) 0.9 H Eos # (Auto) 0.0 Baso # (Auto) 0.0 Immature Gran # (Auto) 0.27 H Absolute Nucleated RBC 0.00 Immature Gran % 2 H Nucleated RBC % 0 Sodium 135 L Potassium 3.7 Chloride 101 Carbon Dioxide 28.7 Anion Gap 5 L BUN 35 H Creatinine 2.2 H D Estim Creat Clear Calc 19.5 L eGFR 22 L BUN/Creatinine Ratio 16 Glucose 121 H Calculated Osmolality 279 Calcium 8.6 Phosphorus 2.9 Magnesium 1.9 ABG Interpretation ABG results: 03/21/24 05:40 ABG pH 7.35 ABG pCO2 41 ABG pO2 121 H ABG HCO3 23 ABG O2 Saturation 99 H ABG Base Excess -3 Quality Measures Quality Measures VTE prophylaxis and sepsis Current suspected stage: sepsis Possible source: skin/soft tissue Blood cultures ordered: yes Antibiotic ordered: Yes Advance care planning discussed with:: patient Assessment & Plan Assessment Current Active Medications: Generic Name Dose Route Start Last Admin Trade Name Freq PRN Reason Stop Dose Admin Acetaminophen 650 mg 03/21/24 05:19 Acetaminophen 325 Mg Tablet PO 04/20/24 05:18 Q6H PRN Fever >101.5 Albuterol/Ipratropium 3 ml 03/21/24 15:51 Albuterol/Ipratropium (Duoneb) Rt Tia 3 Ml Nebu INH 04/20/24 18:59 Q4HRRT PRN Shortness of breath Donepezil HCl 10 mg 03/21/24 21:00 03/22/24 20:22 Donepezil Hcl 5 Mg Tablet PO 04/20/24 20:59 10 mg HS ASHISH Administration Heparin Sodium (Porcine) 3,700 unit 03/21/24 17:43 03/21/24 20:09 Heparin Sod Inj 1000 Unit/Ml [facility] 04/04/24 17:42 3,700 unit PRN PRN Administration DIALYSIS Heparin Sodium (Porcine) 5,000 unit 03/22/24 17:30 03/23/24 08:42 Heparin Sod Inj 5000 Unit/Ml Vial SC 04/05/24 17:29 5,000 unit Q12HR ASHISH Administration Hydralazine HCl 10 mg 03/21/24 15:45 Hydralazine Hcl 10 Mg Tablet PO 04/20/24 17:59 Q6HR PRN SBP>160 Albumin Human 25 gm in 100 mls @ 100 mls/min 03/21/24 10:54 Albuminar-25 Ivpb IV PRN PRN DIALYSIS Ceftriaxone Sodium/Dextrose 50 mls @ 100 mls/hr 03/22/24 18:52 03/23/24 08:43 Rocephin/D5w 1gm Iv Premix IV 03/29/24 18:51 100 mls/hr QDAY ASHISH Administration Metronidazole 500 mg in 100 mls @ 100 mls/hr 03/23/24 09:00 03/23/24 14:22 Flagyl 500 Mg Iv IV 03/30/24 08:59 100 mls/hr Q8HR ASHISH Administration Sodium Chloride 1,000 mls @ 70 mls/hr 03/23/24 09:20 03/23/24 10:31 Ns IV 03/23/24 23:37 70 mls/hr .[id number] ONE Administration Levothyroxine Sodium 112 mcg/ 137 mcg 03/21/24 07:30 03/23/24 05:49 Levothyroxine Sodium 25 mcg PO 04/20/24 07:29 137 mcg ACBR ASHISH Administration Memantine 10 mg 03/21/24 21:00 03/23/24 08:52 Memantine Hcl 5 Mg Tablet PO 04/20/24 20:59 10 mg BID ASHISH Administration Metoprolol Tartrate 25 mg 03/21/24 21:00 03/23/24 08:42 Metoprolol Tartrate 25 Mg Tablet PO 04/20/24 20:59 25 mg BID ASHISH Administration Ondansetron HCl 4 mg 03/21/24 06:08 Ondansetron Inj 2 Mg/Ml Inj 2 Ml IV 04/20/24 06:07 Q6H PRN NAUSEA OR VOMITING Protocol Sevelamer Carbonate 0.8 gm 03/23/24 09:00 03/23/24 12:47 Sevelamer Carbonate 0.8 Gm Packet (Non-Formulary) PO 04/22/24 08:59 0.8 gm TIDWM ASHISH Administration Sodium Chloride 3 ml 03/21/24 08:25 Sodium Chloride Rt Tia 0.9% 3 Ml Nebu INH 04/20/24 08:24 PRN PRN SOLN Plan Summary: The patient is a 78-year-old female with a past medical history of hypothyroidism, hypertension, JACKIE, asthma, depression, dementia, recurrent UTI, and is status post hemicolectomy with ileostomy admitted for acute uremic encephalopathy, stage III acute kidney injury, sepsis secondary to UTI versus intra-abdominal abscess. #Acute encephalopathy uremic vs infections #Acute kidney injury, Decreased p.o. intake in the last 2 to 3 days with nausea and vomiting and presence of ileostomy, thus likely prerenal. However, given extensive elevation in creatinine and drop in GFR other etiologies cannot be excluded. Initial creatinine 9.5 (BL 1.0), BUN 121. Will have received total of 3.5 L of IVF. On admission, patient was noted to have hyperkalemia, increased BUN and creatinine of up to 9.5 as well as hyperphosphatemia. UA was positive for UTI, CT abdomen pelvis showed some suspicion for intra-abdominal abscess. The patient was given 3.5 L of NS and 1 dose of ceftriaxone and admitted for management of sepsis secondary to UTI versus intra-abdominal abscess. On review today, patient's potassium was found to be 6.6 and she was started on a hyperkalemic protocol-5 units of insulin, D50 and given 800 mg of sevelamer. Clinically, she no longer has episodes of vomiting or nausea and mentation is back to baseline. Nephrology was consulted for urgent hemodialysis. 03/23/2024-Patient had another session of dialysis yesterday, with no fluid removal. Labs show significant improvement with creatinine now at 2.2 potassium 3.7 and phosphorus 2.9. Patient's mentation is back to baseline, she is AAOx3 and has no complaints Plan: -Nephro recs: IVF NS -Continue to monitor CMP -Avoid nephrotoxins -Renally dose medications #Sepsis, secondary to #UTI versus intra-abdominal abscess #History of recurrent UTI CT A/P prelim report shows possible intra-abdominal abscess. Patient reports dysuria and cloudy urine, noted to have recurrent UTIs. Most recent urine cultures positive for E. coli, pansensitive. WBC on admission-20.9 Additionally, patient is on IV Zosyn for sepsis management. General surgeon Dr. Flynn consulted, recommends to continue wound care 03/23/2024- WBC downtrending, 14.4 today. Urine culture returned positive for E. coli pansensitive will transition from IV Zosyn to IV ceftriaxone. Will add IV metronidazole for anaerobic coverage for ?intra-abdominal abscess. Evaluated by general surgeon Dr. Flynn, recommends continue wound care. Plan: ? DC IV Zosyn - Commence IV Ceftriaxone, add metronidazole ? General Surgeon Dr. Flynn consulted, following recommendations - Wound care --Continue to monitor CBC #Electrolyte imbalances #Hyponatremia #Hyperkalemia-resolved #Hypochloremia-resolved #Hypocalcemia-resolved #Hyperphosphatemia-resolved #Hypomagnesemia-resolved -Hyperkalemic protocol initiated with 5 units of insulin, D50 and sevelamer as well as albuterol. -IVF NS @75cc/hr -Urgent dialysis Plan: ? Nephrology consulted, following recommendations ? Continue to monitor CMP #History of hypothyroidism Plan ? Resume home medication levothyroxine 125 mcg before breakfast #History of hypertension Plan ? Resume home med- Metoprolol tartrate 25mg BID -Hydralazine 10mg Q6HR PRN for SBP >160 #History of depression #History of dementia #History of bipolar #History of anxiety Plan ? Resume home medications donepezil and memantine -Once clinical status improved, resume nortriptyline #History of obstructive sleep apnea Plan ? CPAP at bedtime as needed #History of asthma Plan ? DuoNebs every 4 hours breathing treatment as needed Hospital management: Disposition: 2-3 hospital nights Fluids: 1 L NS at 75 mL/hr Diet: dysphagia 1 - pureed Lines: peripheral DVT prophylaxis: heparin SC GI prophylaxis: not indicated [place]: placed CODE STATUS: full code Case was discussed with senior resident Dr Vang PGY-3 and attending physician, Dr Maru Guerrero MD PGY-1 Attending Provider Attestation/Addendum I have discussed and was present for the essential components of the history, physical examination, diagnosis, and treatment plan with the resident. I agree with the patient's care as documented by the resident and amended herein by me. Casey Mahoney DO. Patient seen and evaluated this AM. Patient clinically doing well overnight, vital signs stable, patient afebrile. Urine culture is demonstrating pansensitive E. coli, antibiotics de-escalated to ceftriaxone however I will continue Flagyl at this time for possible intra-abdominal infection/abscess. Appreciate surgery recommendations, per nephrology, will hold hemodialysis today, likely will DC temporary dialysis catheter tomorrow. Although this document has been carefully reviewed, there may still be some phonetic and other typographical errors. These errors are purely grammatical due to imperfections in the software program and should not be construed in any way to compromise the substance of the patient's medical care during this visit.
--- NOTE | 2024-03-23 16:30 | PC.SS ---
Rounding Note: Renal function is improving. IV antibiotics to be continued.
[2024-03-23] MEDS: DONEPEZIL HCL 5 MG TABLET 10 MG PO (20:57)
[2024-03-24] VITALS (10 sets, daily range): BP systolic 124–156; BP diastolic 54–71; PULSE 60–97; RESP 15–19; TEMP 36.2–36.4; O2SAT 94–100; BMI 24.7
[2024-03-24 06:02] LABS: Basophils % (Auto) 0 % (0-2.5); Eosinophils # (Auto) 0.1 Thou/mm3 (0.0-0.5); Eosinophils % (Auto) 1 % (0-10); Hematocrit 28.3 % (36.0-46.0); Hemoglobin 9.1 g/dL (12.0-16.0); Immature Granulocytes % (Auto) 3 % (0-0); Immature Granulocytes Auto 0.37 Thou/mm3 (0.00-0.00); Lymphocytes # (Auto) 2.6 Thou/mm3 (1.0-4.8); Lymphocytes % (Auto) 20 % (10-50); Mean Corpuscular HGB Conc 32.2 g/dl (31.0-37.0); Mean Corpuscular Hemoglobin 28.5 pg (25.0-35.0); Mean Corpuscular Volume 89 fL (80-100); Monocytes # (Auto) 0.7 Thou/mm3 (0.0-0.8); Monocytes % (Auto) 5 % (0-12); Neutrophils # (Auto) 9.1 Thou/mm3 (1.8-7.7); Neutrophils % (Auto) 71 % (37-80); Nucleated Red Blood Cell % 0 /100 WBC (0); Platelet Count 329 Thou/mm3 (140-440); RDW Standard Deviation 50.2 fL (36.4-46.3); Red Blood Count 3.19 Miln/mm3 (4.00-5.20); White Blood Count 12.8 Thou/mm3 (3.6-11.0)
[2024-03-24] MEDS: metroNIDAZOLE/NS 500 MG IVPB 500 MG/100 ML BAG 100 MG IV ×3 (06:03→21:37)
[2024-03-24] MEDS: LEVOTHYROXINE SODIUM 112 MCG, LEVOTHYROXINE SODIUM 25 MCG 137 MCG PO (06:03)
[2024-03-24 06:26] LABS: Anion Gap 6 (7-16); BUN/Creatinine Ratio 20 Ratio (12-20); Blood Urea Nitrogen 43 mg/dL (9-23); Calcium 8.5 mg/dL (8.3-10.6); Carbon Dioxide 28.3 mMol/L (20.0-31.0); Chloride 105 mMol/L (98-107); Creatinine (Component) 2.1 mg/dL (0.6-1.3); Estimated Creatinine Clearance 20.5 mL/min (>60); Glucose 100 mg/dL (74-106); Magnesium 1.7 mg/dL (1.6-2.6); Osmolality,Calculated 288 (275-295); Phosphorous 2.2 mg/dL (2.4-5.1); Potassium 4.2 mMol/L (3.4-5.1); Sodium 139 mMol/L (136-145); eGFR 24 See Note
--- NOTE | 2024-03-24 08:49 | PD.SURPROG ---
Documentation for date of: 03/24/24 Subjective Subjective Brief History: 78F with HTN, CHF, hypothyroidism who underwent right hemicolectomy with diverting ileostomy for fecal contamination 12/19, admitted in past for MAKENZIE here now with AMS and acute renal failure, planned for emergent HD. Workup shows leukocytosis and possible abdominal fluid collection PMH: HTN, CHF, hypothyroidism, bipolar disorder PSHx: Tonsillectomy, appendectomy, cholecystectomy, hysterectomy, R hemicolectomy with diverting ileostomy 12/19 for benign necrotic mass Meds: no anticoagulation Allergies: haldol, naproxen, fluoxetine Social hx: Nonsmoker Narrative: Denies pain, 450cc urine 24h, Cr gradually downtrending, WBC 12 Exam Vital Signs Temp Pulse Resp BP Pulse Ox O2 Del Method O2 Flow Rate 97.6 F 69 19 133/71 H 100 Nasal Cannula 2 03/24/24 08:00 03/24/24 08:00 03/24/24 08:00 03/24/24 08:00 03/24/24 08:00 03/24/24 08:00 03/24/24 08:00 Constitutional Constitutional: no acute distress Routine Respiratory Exam Respiratory: Present no resp distress Routine Abdominal Exam Abdominal: Present soft and ostomy (ileostomy pink with green liquid stool in appliance); Absent tenderness or distended Results Results: Laboratory Laboratory results: results reviewed Assessment & Plan Plan 78F with HTN, CHF, hypothyroidism who underwent right hemicolectomy with diverting ileostomy for fecal contamination 12/19, admitted with acute renal failure, gradually improving. I spoke to pt's daughter yesterday regarding plan for ileostomy reversal as I had planned on doing so this month; I explained that we will first need to repeat CT with IV contrast which will best be undertaken when renal function improves even further, to hopefully avoid further injury Strict I&O, initiate imodium if ileostomy output >1500cc/24h When Cr normalizes will repeat CT AP with PO and IV contrast Ileostomy reversal pending CT
--- NOTE | 2024-03-24 08:51 | PC.SS ---
Update: Patient will not require outpatient dialysis. Plan is to d/c patient today.
[2024-03-24] MEDS: HEPARIN SOD INJ 5000 UNIT/ML VIAL SC ×2 (09:27→21:36)
[2024-03-24] MEDS: METOPROLOL TARTRATE 25 MG TABLET PO ×2 (09:27→21:36)
[2024-03-24] MEDS: MEMANTINE HCL 5 MG TABLET 10 MG PO ×2 (09:27→21:36)
[2024-03-24] MEDS: cefTRIAXone/D5w 1gm IV premix 50 ML IV (09:27)
[2024-03-24] MEDS: SODIUM CHLORIDE 0.9% 1000 ML 1,000 ML 70 ML IV (09:31)
[2024-03-24] MEDS: Magnesium Sulfate 2 GM Ivpb 2 GM/50 ML BAG IV (09:31)
--- NOTE | 2024-03-24 11:57 | CHAP ---
Patient was visited by the Spiritual Care Volunteer who prayed for her. (Volunteer was in the hospital from :00-).
--- NOTE | 2024-03-24 13:45 | ESPR_ITS ---
Documentation for date of: 03/24/24 Subjective Subjective Interval history: 78 y/o F with PMHx significant for hypothyroidism, hypertension, JACKIE, asthma, depression, dementia, recurrent UTI, and is status post hemicolectomy with ileostomy presents with altered mental status and nausea and vomiting. Patient initially presented to ED with altered mentation and was not able to provide history. Subsequently given 2.5 L of fluids per sepsis protocol and mentation slowly improved. Upon evaluation, patient endorsed 2 to 3 days of nausea and vomiting along with decreased p.o. intake. Also endorses abdominal pain at ileostomy site, decreased ileostomy output, as well as dysuria and cloudy urine but denies fever or chills. Otherwise also denies shortness of breath or chest discomfort. Of note, patient recently discharged on 02/15 for ileostomy leakage/malfunction. CT head unremarkable. CT A/P showed Soft tissue mass in the anterior abdominal wall 2.8 x 2.2 cm and aggregate of small bowel versus abscess in the right lower abdomen poorly defined, at least 4 cm in dimension. Patient recieved IVF, magnesisum, zosyn and rocephin in ED. Labs showed sodium 125, potassium 6.6, BUN 134, Human Resources Recruiter 9.3, eGFR 4, Corrected Ca 8.3, phos 10.7, Mg 1.1. Patient has no known history CKD. On exam patient was lethargic but responsive, followed commands, A&Ox3. Appears euvolemic. Nephrology consulted for acute renal failure, plan for emergent dialysis. 03/22: Patient seen and examined in bed. Patient remains lethargic. Signs of leaking around ileostomy bag. Labs significantly improved after dialysis session yesterday. Sodium 129, potassium 4.1, bicarb 25.4, BUN 62, creatinine 2.6, eGFR 12. Plan for dialysis today. Prelim urine culture positive for gram- negative rods. Patient currently on Zosyn. 03/23: Patient seen and examined in bed. Patient is somewhat lethargic but improved from before. Sodium 135, potassium 3.7, bicarb 28.7, BUN 35, creatinine 2.2, eGFR 22. Will give 1 L normal saline at 70 mL/h and 40 mEq potassium p.o. No plans for dialysis today. 03/24/2024 patient currently seen in telemetry. More alert and awake. Patient has more than a liter of urine output although 1800 colostomy losses. Blood pressure 144/62, heart rate 83. WBC 12.8, hemoglobin 9.1, platelets 329. Sodium 139, potassium 4.2, BUN 43, creatinine 2.1, phosphorus 2.2, magnesium 1.7 Primary team wanted to do CT abdomen with contrast. Dr. Flynn suggested can hold CT with contrast for 1 to 2 days. 1 L IV fluids given. Will monitor renal function closely. No need for dialysis today. However to for the weekend will leave Vas-Cath. Review of Systems Review of Systems Narrative Review of Systems: CONSTITUTIONAL: Patient denies any fever, chills. Complaining of fatigue HEENT: Denies any visual disturbances or hearing problems. CARDIOVASCULAR: Patient denies any chest pain, shortness of breath, swelling in the lower extremities. PULMONARY: Patient denies any shortness of breath, cough. GASTROINTESTINAL: patient complaining of discomfort around the colostomy site. Leakage noted. GENITOURINARY: Patient denies any urinary symptoms of burning or frequency or hematuria, denies any form in the urine. SKIN: Denies any rash. MUSCULOSKELETAL: Gait imbalance NEUROLOGICAL: Denies any neurological problems of strokes, seizures or confusion. Denies any memory problems. Exam Vital Signs Temp Pulse Resp BP Pulse Ox O2 Del Method O2 Flow Rate 36.4 C 69 15 124/54 L 99 Room Air 2 03/24/24 11:52 03/24/24 12:00 03/24/24 11:52 03/24/24 11:52 03/24/24 11:52 03/24/24 11:52 03/24/24 08:00 Narrative Exam GENERAL APPEARANCE: Fragile lady currently seen in telemetry NECK: Neck supple, no JVD or bruit CARDIOVASCULAR: Heart regular, no murmurs LUNGS/CHEST: Chest clear to auscultation. No rales, rhonchi, wheezing ABDOMEN: Soft, bowel sounds present. She has colostomy and leakage around the colostomy with erythema noted. Significant amount of copious liquid stool noted. EXTREMITIES: No edema, clubbing or cyanosis. SKIN: Redness around colostomy site MUSCULOSKELETAL: In bed NEUROLOGICAL : No neurological deficits. Alert and awake Objective Labs 03/24/24 04:50 03/24/24 04:50 Labs: Laboratory Results - last 24 hr 03/24/24 04:50 WBC 12.8 H RBC 3.19 L Hgb 9.1 L Hct 28.3 L MCV 89 MCH 28.5 MCHC 32.2 RDW Std Deviation 50.2 H Plt Count 329 Neut % (Auto) 71 Lymph % (Auto) 20 [place] % (Auto) 5 Eos % (Auto) 1 Baso % (Auto) 0 Neut # (Auto) 9.1 H Lymph # (Auto) 2.6 [place] # (Auto) 0.7 Eos # (Auto) 0.1 Baso # (Auto) 0.0 Immature Gran # (Auto) 0.37 H Absolute Nucleated RBC 0.00 Immature Gran % 3 H Nucleated RBC % 0 Sodium 139 Potassium 4.2 D Chloride 105 Carbon Dioxide 28.3 Anion Gap 6 L BUN 43 H Creatinine 2.1 H Estim Creat Clear Calc 20.5 L eGFR 24 L BUN/Creatinine Ratio 20 Glucose 100 Calculated Osmolality 288 Calcium 8.5 Phosphorus 2.2 L Magnesium 1.7 ABG Interpretation ABG results: 03/21/24 05:40 ABG pH 7.35 ABG pCO2 41 ABG pO2 121 H ABG HCO3 23 ABG O2 Saturation 99 H ABG Base Excess -3 Assessment & Plan Additional Assessment & Plan Additional Plan: 78 y/o F with PMHx significant for hypothyroidism, hypertension, JACKIE, asthma, depression, dementia, recurrent UTI, and is status post hemicolectomy with ileostomy admitted for acute uremic encephalopathy, stage III acute kidney injury, sepsis secondary to UTI versus intra-abdominal abscess. #Acute kidney injury-suspect patient in ischemic ATN Patient received 2 dialysis treatments and started to make good urine. Held dialysis today. Leave Vas-Cath in. Might need to CT abdomen with IV contrast and possibly dialysis -IVF: Normal saline at 70 mL/h x 1 L Added Neutra-Phos -Avoid nephrotoxins -Renally dose medications -daily labs #Sepsis, secondary to GI/UTI-on antibiotics plan of care discussed with primary team, Dr. Flynn #UTI, gram-negative rods #Electrolyte imbalances #Hypothyroidism #Hypertension #Depression #Dementia Management as per primary team.
--- NOTE | 2024-03-24 14:30 | PC.SS ---
Rounding Note: Patient will not be discharging due to pending ileostomy reversal procedure.
--- NOTE | 2024-03-24 14:53 | ESPR_ITS ---
<Statement entered by Alyson Vang MD - 03/24/24 15:59> Senior Resident Attestation: I supervised/discussed management plan with resident physician Dr. Guerrero, and was involved in the care of this patient. I personally saw and examined the patient and discussed the assessment and plan with the entire medicine team, including my attending. I agree with the assessment and plan as documented. Patient's care was discussed with attending physician, Dr. Maru Vang MD PGY-3 Documentation for date of: 03/24/24 Subjective Subjective Interval history: Patient seen at bedside. No acute overnight events. Patient has no complaints today, labs and vitals reviewed. BUN and creatinine slightly improving, phosphorus of 2.6 today, will hold sevelamer. Patient was evaluated by the general surgeon Dr. Flynn who is considering takedown of the ileostomy following a CT scan with contrast which will be done when renal function is much better. For this reason, we will leave the TDC in for possible dialysis postcontrast CT. Otherwise, patient is still on ceftriaxone and metronidazole. 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 Eyes open, symmetrical, & clear, TDC in IJ vein on the right CARDIO: No chest pain on palpation. Heart RRR, no obvious murmurs PULM: No noted coughing/dyspnea. Lungs CTA B/L, GI: Abdomen soft, nondistended, no pain on palpation. Colostomy bag without leak, cellulitis seen in surrounding area. BSx4 URO/SENIOR DATA SCIENTIST:: No further abnormalities noted. SKIN/MSK/EXT: No wounds/rashes/edema/amputations, no pain on palpation. Pedal pulses present B/L Objective Labs 03/24/24 04:50 03/24/24 04:50 Labs: Laboratory Results - last 24 hr 03/24/24 04:50 WBC 12.8 H RBC 3.19 L Hgb 9.1 L Hct 28.3 L MCV 89 MCH 28.5 MCHC 32.2 RDW Std Deviation 50.2 H Plt Count 329 Neut % (Auto) 71 Lymph % (Auto) 20 [place] % (Auto) 5 Eos % (Auto) 1 Baso % (Auto) 0 Neut # (Auto) 9.1 H Lymph # (Auto) 2.6 [place] # (Auto) 0.7 Eos # (Auto) 0.1 Baso # (Auto) 0.0 Immature Gran # (Auto) 0.37 H Absolute Nucleated RBC 0.00 Immature Gran % 3 H Nucleated RBC % 0 Sodium 139 Potassium 4.2 D Chloride 105 Carbon Dioxide 28.3 Anion Gap 6 L BUN 43 H Creatinine 2.1 H Estim Creat Clear Calc 20.5 L eGFR 24 L BUN/Creatinine Ratio 20 Glucose 100 Calculated Osmolality 288 Calcium 8.5 Phosphorus 2.2 L Magnesium 1.7 ABG Interpretation ABG results: 03/21/24 05:40 ABG pH 7.35 ABG pCO2 41 ABG pO2 121 H ABG HCO3 23 ABG O2 Saturation 99 H ABG Base Excess -3 Quality Measures Quality Measures VTE prophylaxis and sepsis Current suspected stage: sepsis Possible source: skin/soft tissue Blood cultures ordered: yes Antibiotic ordered: Yes Advance care planning discussed with:: patient Assessment & Plan Assessment Current Active Medications: Generic Name Dose Route Start Last Admin Trade Name Freq PRN Reason Stop Dose Admin Acetaminophen 650 mg 03/21/24 05:19 Acetaminophen 325 Mg Tablet PO 04/20/24 05:18 Q6H PRN Fever >101.5 Albuterol/Ipratropium 3 ml 03/21/24 15:51 Albuterol/Ipratropium (Duoneb) Rt Tia 3 Ml Nebu INH 04/20/24 18:59 Q4HRRT PRN Shortness of breath Donepezil HCl 10 mg 03/21/24 21:00 03/23/24 20:57 Donepezil Hcl 5 Mg Tablet PO 04/20/24 20:59 10 mg HS ASHISH Administration Heparin Sodium (Porcine) 3,700 unit 03/21/24 17:43 03/21/24 20:09 Heparin Sod Inj 1000 Unit/Ml Vial 10 Ml INDWELLCAT 04/04/24 17:42 3,700 unit PRN PRN Administration DIALYSIS Heparin Sodium (Porcine) 5,000 unit 03/22/24 17:30 03/24/24 09:27 Heparin Sod Inj 5000 Unit/Ml Vial SC 04/05/24 17:29 5,000 unit Q12HR ASHISH Administration Hydralazine HCl 10 mg 03/21/24 15:45 Hydralazine Hcl 10 Mg Tablet PO 04/20/24 17:59 Q6HR PRN SBP>160 Albumin Human 25 gm in 100 mls @ 100 mls/min 03/21/24 10:54 Albuminar-25 Ivpb IV PRN PRN DIALYSIS Ceftriaxone Sodium/Dextrose 50 mls @ 100 mls/hr 03/22/24 18:52 03/24/24 09:27 Rocephin/D5w 1gm Iv Premix IV 03/29/24 18:51 100 mls/hr QDAY ASHISH Administration Metronidazole 500 mg in 100 mls @ 100 mls/hr 03/23/24 09:00 03/24/24 14:46 Flagyl 500 Mg Iv IV 03/30/24 08:59 100 mls/hr Q8HR ASHISH Administration Sodium Chloride 1,000 mls @ 70 mls/hr 03/24/24 08:37 03/24/24 09:31 Ns IV 03/24/24 22:54 70 mls/hr .[id number] ONE Administration Levothyroxine Sodium 112 mcg/ 137 mcg 03/21/24 07:30 03/24/24 06:03 Levothyroxine Sodium 25 mcg PO 04/20/24 07:29 137 mcg ACBR ASHISH Administration Memantine 10 mg 03/21/24 21:00 03/24/24 09:27 Memantine Hcl 5 Mg Tablet PO 04/20/24 20:59 10 mg BID ASHISH Administration Metoprolol Tartrate 25 mg 03/21/24 21:00 03/24/24 09:27 Metoprolol Tartrate 25 Mg Tablet PO 04/20/24 20:59 25 mg BID ASHISH Administration Ondansetron HCl 4 mg 03/21/24 06:08 Ondansetron Inj 2 Mg/Ml Inj 2 Ml IV 04/20/24 06:07 Q6H PRN NAUSEA OR VOMITING Protocol Sodium Chloride 3 ml 03/21/24 08:25 Sodium Chloride Rt Tia 0.9% 3 Ml Nebu INH 04/20/24 08:24 PRN PRN SOLN Plan Summary: The patient is a 78-year-old female with a past medical history of hypothyroidism, hypertension, JACKIE, asthma, depression, dementia, recurrent UTI, and is status post hemicolectomy with ileostomy admitted for acute uremic encephalopathy, stage III acute kidney injury, sepsis secondary to UTI versus intra-abdominal abscess. #Acute encephalopathy uremic vs infections #Acute kidney injury, Decreased p.o. intake in the last 2 to 3 days with nausea and vomiting and presence of ileostomy, thus likely prerenal. However, given extensive elevation in creatinine and drop in GFR other etiologies cannot be excluded. Initial creatinine 9.5 (BL 1.0), BUN 121. Will have received total of 3.5 L of IVF. On admission, patient was noted to have hyperkalemia, increased BUN and creatinine of up to 9.5 as well as hyperphosphatemia. UA was positive for UTI, CT abdomen pelvis showed some suspicion for intra-abdominal abscess. The patient was given 3.5 L of NS and 1 dose of ceftriaxone and admitted for management of sepsis secondary to UTI versus intra-abdominal abscess. On review today, patient's potassium was found to be 6.6 and she was started on a hyperkalemic protocol-5 units of insulin, D50 and given 800 mg of sevelamer. Clinically, she no longer has episodes of vomiting or nausea and mentation is back to baseline. Nephrology was consulted for urgent hemodialysis. 03/24/2024-Patient has no complaints today, labs and vitals reviewed. BUN and creatinine slightly improving, phosphorus of 2.6 today, will hold sevelamer. CT IV fluids Plan: -Nephro recs: CT IVF NS -Continue to monitor CMP -Avoid nephrotoxins -Renally dose medications #Sepsis, secondary to #E.Coli UTI #Possible intra-abdominal abscess #History of recurrent UTI CT A/P prelim report shows possible intra-abdominal abscess. Patient reports dysuria and cloudy urine, noted to have recurrent UTIs. Most recent urine cultures positive for E. coli, pansensitive. WBC on admission-20.9 Additionally, patient is on IV Zosyn for sepsis management. General surgeon Dr. Flynn consulted, recommends to continue wound care 03/24/2024- Patient was evaluated by the general surgeon Dr. Flynn who is considering takedown of the ileostomy following a CT scan with contrast which will be done when renal function is much better. For this reason, we will leave the TDC in for possible dialysis postcontrast CT. Otherwise, patient is still on ceftriaxone and metronidazole. Plan: - CT IV Ceftriaxone and metronidazole - Possible contrast CT abdomen in the near future ? General Surgeon Dr. Flynn consulted, following recommendations - Wound care --Continue to monitor CBC #Electrolyte imbalances #Hyponatremia #Hyperkalemia-resolved #Hypochloremia-resolved #Hypocalcemia-resolved #Hyperphosphatemia-resolved #Hypomagnesemia-resolved -Hyperkalemic protocol initiated with 5 units of insulin, D50 and sevelamer as well as albuterol. -IVF NS @75cc/hr -Urgent dialysis Plan: ? Nephrology consulted, following recommendations ? Continue to monitor CMP #History of hypothyroidism Plan ? Resume home medication levothyroxine 125 mcg before breakfast #History of hypertension Plan ? Resume home med- Metoprolol tartrate 25mg BID -Hydralazine 10mg Q6HR PRN for SBP >160 #History of depression #History of dementia #History of bipolar #History of anxiety Plan ? Resume home medications donepezil and memantine -Once clinical status improved, resume nortriptyline #History of obstructive sleep apnea Plan ? CPAP at bedtime as needed #History of asthma Plan ? DuoNebs every 4 hours breathing treatment as needed Hospital management: Disposition: 2-3 hospital nights Fluids: 1 L NS at 75 mL/hr Diet: dysphagia 1 - pureed Lines: peripheral DVT prophylaxis: heparin SC GI prophylaxis: not indicated [place]: placed CODE STATUS: full code Case was discussed with senior resident Dr Vang PGY-3 and attending physician, Dr Maru Guerrero MD PGY-1 Attending Provider Attestation/Addendum I have discussed and was present for the essential components of the history, physical examination, diagnosis, and treatment plan with the resident. I agree with the patient's care as documented by the resident and amended herein by me. Casey Mahoney DO. Patient seen and evaluated this AM. Vital signs stable, patient afebrile overnight, she feels well and has no subjective complaints. Significant labs include a WBC of 13 hemoglobin of 9, BUN 43, creatinine relatively stable, slightly improved today 2.1. Will postpone CT with contrast to evaluate for any intra-abdominal bowel leakage at this time as to allow for continued improvement in renal function per surgery. Ileostomy reversal will be planned for next week, we will keep TDC in at this time, continue ceftriaxone and Flagyl for now continue to monitor closely. Although this document has been carefully reviewed, there may still be some phonetic and other typographical errors. These errors are purely grammatical due to imperfections in the software program and should not be construed in any way to compromise the substance of the patient's medical care during this visit.
--- NOTE | 2024-03-24 15:15 | PC.SS ---
Patient is alert/oriented. Patient resides with daughter, Sahra. SS spoke to daughter, who provided brief history of patient. Patient was admitted for MAKENZIE. Patient uses a walker and wheelchair at home. [facility] were [facility] for her colostomy bag and PT services. Patient will not be doing o/p dialysis at this time. Patient will be staying for up coming surgery with Dr. Flynn. Patient's daughter states she has a bad back and cannot lift her mother. SS discussed d/c options of SNF vs HH. Daughter states after surgery, they will re evaluate and decide. Patient was previously at [facility] and did not like it. Daughter prefers 71lbs. If they chose HH, they would like to continue [facility]. Daughter states patient follows with Dr. Herndon and last visit was in December. She follows with Dr. Zhang and Dr. Em. Daughter, Sahra, is the alt medical decision maker. Pharmacy: [facility] in [place]. Transport: [facility]. Daughter states if patient d/c's home, they will need a list of [employer] to assist in transportation.
[2024-03-24] MEDS: DONEPEZIL HCL 5 MG TABLET 10 MG PO (21:37)
[2024-03-25] VITALS (13 sets, daily range): BP systolic 116–154; BP diastolic 63–90; PULSE 69–86; RESP 13–99; TEMP 36.2–36.9; O2SAT 94–100; BMI 24.7
[2024-03-25 06:26] LABS: Basophils # (Auto) 0.1 Thou/mm3 (0.0-0.2); Basophils % (Auto) 1 % (0-2.5); Eosinophils # (Auto) 0.1 Thou/mm3 (0.0-0.5); Eosinophils % (Auto) 1 % (0-10); Hematocrit 29.3 % (36.0-46.0); Hemoglobin 9.3 g/dL (12.0-16.0); Immature Granulocytes % (Auto) 3 % (0-0); Immature Granulocytes Auto 0.45 Thou/mm3 (0.00-0.00); Lymphocytes # (Auto) 3.5 Thou/mm3 (1.0-4.8); Lymphocytes % (Auto) 24 % (10-50); Mean Corpuscular HGB Conc 31.7 g/dl (31.0-37.0); Mean Corpuscular Hemoglobin 28.3 pg (25.0-35.0); Mean Corpuscular Volume 89 fL (80-100); Monocytes % (Auto) 7 % (0-12); Neutrophils # (Auto) 9.3 Thou/mm3 (1.8-7.7); Neutrophils % (Auto) 65 % (37-80); Nucleated Red Blood Cell % 0 /100 WBC (0); Platelet Count 340 Thou/mm3 (140-440); RDW Standard Deviation 52.1 fL (36.4-46.3); Red Blood Count 3.29 Miln/mm3 (4.00-5.20); White Blood Count 14.3 Thou/mm3 (3.6-11.0)
[2024-03-25] MEDS: metroNIDAZOLE/NS 500 MG IVPB 500 MG/100 ML BAG 100 MG IV ×3 (06:36→21:02)
[2024-03-25] MEDS: LEVOTHYROXINE SODIUM 112 MCG, LEVOTHYROXINE SODIUM 25 MCG 137 MCG PO (06:43)
[2024-03-25 06:48] LABS: Alanine Aminotransferase 26 U/L (10-49); Albumin, Serum 3.1 gm/dL (3.4-4.8); Albumin/Globulin Ratio 1.1 (1.2-2.2); Alkaline Phosphatase 312 U/L (46-116); Anion Gap 7 (7-16); Aspartate Amino Transferase 29 U/L (0-34); BUN/Creatinine Ratio 27 Ratio (12-20); Bilirubin,Total 0.3 mg/dL (0.3-1.2); Blood Urea Nitrogen 40 mg/dL (9-23); Calcium 8.7 mg/dL (8.3-10.6); Calcium (Corrected) 9.4 mg/dL (8.5-10.1); Carbon Dioxide 27.5 mMol/L (20.0-31.0); Chloride 107 mMol/L (98-107); Creatinine (Component) 1.5 mg/dL (0.6-1.3); Estimated Creatinine Clearance 28.7 mL/min (>60); Globulin 2.9 gm/dL (2.3-3.5); Glucose 105 mg/dL (74-106); Osmolality,Calculated 290 (275-295); Phosphorous 2.4 mg/dL (2.4-5.1); Sodium 141 mMol/L (136-145); eGFR 35 See Note
[2024-03-25] MEDS: METOPROLOL TARTRATE 25 MG TABLET PO ×2 (09:10→20:17)
[2024-03-25] MEDS: MEMANTINE HCL 5 MG TABLET 10 MG PO ×2 (09:11→20:17)
[2024-03-25] MEDS: HEPARIN SOD INJ 5000 UNIT/ML VIAL SC ×2 (09:11→20:17)
[2024-03-25] MEDS: cefTRIAXone/D5w 1gm IV premix 50 ML IV (09:11)
--- NOTE | 2024-03-25 11:48 | PD.RESPRO ---
Documentation for date of: 03/25/24 Subjective Subjective Interval history: 78 y/o F with PMHx significant for hypothyroidism, hypertension, JACKIE, asthma, depression, dementia, recurrent UTI, and is status post hemicolectomy with ileostomy presents with altered mental status and nausea and vomiting. Patient initially presented to ED with altered mentation and was not able to provide history. Subsequently given 2.5 L of fluids per sepsis protocol and mentation slowly improved. Upon evaluation, patient endorsed 2 to 3 days of nausea and vomiting along with decreased p.o. intake. Also endorses abdominal pain at ileostomy site, decreased ileostomy output, as well as dysuria and cloudy urine but denies fever or chills. Otherwise also denies shortness of breath or chest discomfort. Of note, patient recently discharged on 02/15 for ileostomy leakage/malfunction. CT head unremarkable. CT A/P showed Soft tissue mass in the anterior abdominal wall 2.8 x 2.2 cm and aggregate of small bowel versus abscess in the right lower abdomen poorly defined, at least 4 cm in dimension. Patient recieved IVF, magnesisum, zosyn and rocephin in ED. Labs showed sodium 125, potassium 6.6, BUN 134, Instructor Knitting 9.3, eGFR 4, Corrected Ca 8.3, phos 10.7, Mg 1.1. Patient has no known history CKD. On exam patient was lethargic but responsive, followed commands, A&Ox3. Appears euvolemic. Nephrology consulted for acute renal failure, plan for emergent dialysis. 03/22: Patient seen and examined in bed. Patient remains lethargic. Signs of leaking around ileostomy bag. Labs significantly improved after dialysis session yesterday. Sodium 129, potassium 4.1, bicarb 25.4, BUN 62, creatinine 2.6, eGFR 12. Plan for dialysis today. Prelim urine culture positive for gram-negative rods. Patient currently on Zosyn. 03/23: Patient seen and examined in bed. Patient is somewhat lethargic but improved from before. Sodium 135, potassium 3.7, bicarb 28.7, BUN 35, creatinine 2.2, eGFR 22. Will give 1 L normal saline at 70 mL/h and 40 mEq potassium p.o. No plans for dialysis today. 03/24/2024 patient currently seen in telemetry. More alert and awake. Patient has more than a liter of urine output although 1800 colostomy losses. Blood pressure 144/62, heart rate 83. WBC 12.8, hemoglobin 9.1, platelets 329. Sodium 139, potassium 4.2, BUN 43, creatinine 2.1, phosphorus 2.2, magnesium 1.7 Primary team wanted to do CT abdomen with contrast. Dr. Flynn suggested can hold CT with contrast for 1 to 2 days. 1 L IV fluids given. Will monitor renal function closely. No need for dialysis today. However to for the weekend will leave Vas-Cath. 03/25: Patient seen and examined in bed. Patient is awake and alert, resting comfortably. Patient had 1.8 L output, 1.1 L of which was stool. Sodium 141, potassium 4.0, chloride 107, bicarb 27.5, BUN 40, creatinine 1.5, EGFR 35. Order placed to discontinue central cath given patient's resolving MAKENZIE. Discussed with primary team and Dr. Flynn, cleared for CT with contrast. Will likely perform Wednesday. Exam Vital Signs Temp Pulse Resp BP Pulse Ox O2 Del Method O2 Flow Rate 97.5 F 69 13 153/67 H 100 Room Air 1 03/25/24 08:00 03/25/24 09:10 03/25/24 08:00 03/25/24 09:10 03/25/24 08:00 03/25/24 08:00 03/25/24 07:08 Narrative Exam PE: Gen: Well-developed and well-nourished. Elderly frail lady. HEENT: NCAT, PERRLA, EOMI, MMM, anicteric conjunctivae. CVS: normal S1 and S2. RRR. No M/R/G. Resp: Diffuse coarse lung sounds. Abd: soft, non-tender, non-distended. Illeostomy, signs of leaking. MSK: Good ROM in BUE & BLE. No edema or rash. Neuro: CN II-XII grossly intact. Strength 4/5 in BUE & BLE. Alert and oriented x3. Objective Labs 03/26/24 22:20 03/26/24 22:20 Labs: Laboratory Results - last 24 hr 03/25/24 06:07 WBC 14.3 H RBC 3.29 L Hgb 9.3 L Hct 29.3 L MCV 89 MCH 28.3 MCHC 31.7 RDW Std Deviation 52.1 H Plt Count 340 Neut % (Auto) 65 Lymph % (Auto) 24 [place] % (Auto) 7 Eos % (Auto) 1 Baso % (Auto) 1 Neut # (Auto) 9.3 H Lymph # (Auto) 3.5 [place] # (Auto) 1.0 H Eos # (Auto) 0.1 Baso # (Auto) 0.1 Immature Gran # (Auto) 0.45 H Absolute Nucleated RBC 0.00 Immature Gran % 3 H Nucleated RBC % 0 Sodium 141 Potassium 4.0 Chloride 107 Carbon Dioxide 27.5 Anion Gap 7 BUN 40 H Creatinine 1.5 H D Estim Creat Clear Calc 28.7 L eGFR 35 L BUN/Creatinine Ratio 27 H Glucose 105 Calculated Osmolality 290 Calcium 8.7 Corrected Calcium 9.4 Phosphorus 2.4 Magnesium 2.0 Total Bilirubin 0.3 AST 29 ALT 26 Alkaline Phosphatase 312 H Total Protein 6.0 Albumin 3.1 L Globulin 2.9 Albumin/Globulin Ratio 1.1 L ABG Interpretation ABG results: 03/21/24 05:40 ABG pH 7.35 ABG pCO2 41 ABG pO2 121 H ABG HCO3 23 ABG O2 Saturation 99 H ABG Base Excess -3 Quality Measures Quality Measures VTE prophylaxis and sepsis Current suspected stage: sepsis Possible source: skin/soft tissue Blood cultures ordered: yes Antibiotic ordered: Yes Advance care planning discussed with:: patient Assessment & Plan Assessment Current Active Medications: Generic Name Dose Route Start Last Admin Trade Name Freq PRN Reason Stop Dose Admin Acetaminophen 650 mg 03/21/24 05:19 Acetaminophen 325 Mg Tablet PO 04/20/24 05:18 Q6H PRN Fever >101.5 Albuterol/Ipratropium 3 ml 03/21/24 15:51 Albuterol/Ipratropium (Duoneb) Rt Tia 3 Ml Nebu INH 04/20/24 18:59 Q4HRRT PRN Shortness of breath Donepezil HCl 10 mg 03/21/24 21:00 03/24/24 21:37 Donepezil Hcl 5 Mg Tablet PO 04/20/24 20:59 10 mg HS ASHISH Administration Heparin Sodium (Porcine) 3,700 unit 03/21/24 17:43 03/21/24 20:09 Heparin Sod Inj 1000 Unit/Ml Vial 10 Ml INDWELLCAT 04/04/24 17:42 3,700 unit PRN PRN Administration DIALYSIS Heparin Sodium (Porcine) 5,000 unit 03/22/24 17:30 03/25/24 09:11 Heparin Sod Inj 5000 Unit/Ml Vial SC 04/05/24 17:29 5,000 unit Q12HR ASHISH Administration Hydralazine HCl 10 mg 03/21/24 15:45 Hydralazine Hcl 10 Mg Tablet PO 04/20/24 17:59 Q6HR PRN SBP>160 Albumin Human 25 gm in 100 mls @ 100 mls/min 03/21/24 10:54 Albuminar-25 Ivpb IV PRN PRN DIALYSIS Ceftriaxone Sodium/Dextrose 50 mls @ 100 mls/hr 03/22/24 18:52 03/25/24 09:11 Rocephin/D5w 1gm Iv Premix IV 03/29/24 18:51 100 mls/hr QDAY ASHISH Administration Metronidazole 500 mg in 100 mls @ 100 mls/hr 03/23/24 09:00 03/25/24 06:36 Flagyl 500 Mg Iv IV 03/30/24 08:59 100 mls/hr Q8HR ASHISH Administration Levothyroxine Sodium 112 mcg/ 137 mcg 03/21/24 07:30 03/25/24 06:43 Levothyroxine Sodium 25 mcg PO 04/20/24 07:29 137 mcg ACBR ASHISH Administration Memantine 10 mg 03/21/24 21:00 03/25/24 09:11 Memantine Hcl 5 Mg Tablet PO 04/20/24 20:59 10 mg BID ASHISH Administration Metoprolol Tartrate 25 mg 03/21/24 21:00 03/25/24 09:10 Metoprolol Tartrate 25 Mg Tablet PO 04/20/24 20:59 25 mg BID ASHISH Administration Ondansetron HCl 4 mg 03/21/24 06:08 Ondansetron Inj 2 Mg/Ml Inj 2 Ml IV 04/20/24 06:07 Q6H PRN NAUSEA OR VOMITING Protocol Sodium Chloride 3 ml 03/21/24 08:25 Sodium Chloride Rt Tia 0.9% 3 Ml Nebu INH 04/20/24 08:24 PRN PRN SOLN Plan 78 y/o F with PMHx significant for hypothyroidism, hypertension, JACKIE, asthma, depression, dementia, recurrent UTI, and is status post hemicolectomy with ileostomy admitted for acute uremic encephalopathy, stage III acute kidney injury, sepsis secondary to UTI versus intra-abdominal abscess. #Acute uremic encephalopathy -resolved #Acute kidney injury-suspect patient in ischemic ATN -resolving Decreased p.o. intake in the last 2 to 3 days with nausea and vomiting and presence of ileostomy, thus likely prerenal. However, given extensive elevation in creatinine and drop in GFR other etiologies cannot be excluded. Initial creatinine 9.5 (BL 1.0), BUN 121, which worsened to Instructor Knitting 9.3, BUN 134, eGFR 4. Will have received total of 3.5 L of IVF. Patient received dialysis with improvement in renal function. Patient shows continuous improvement in renal function, eGFR > 30. Plan for CT with contrast to eval ileostomy, patient is stable for contrast given improving MAKENZIE. -DC chest cath -Avoid nephrotoxins -Renally dose medications -daily labs #Sepsis, secondary to #UTI, gram-negative rods #Electrolyte imbalances #Hypothyroidism #Hypertension #Depression #Dementia Management as per primary team. Thank you for allowing me to participate in the care of this patient. Plan of care discussed with my attending Dr. Rahman. Vadim Price MD PGY-1 Attending Provider Attestation/Addendum Patient seen and examined with resident physician Dr. Price. Note reviewed, agree with findings and recommendations. Creatinine markedly improved. Will DC Vas-Cath on Wednesday. Continue encouraging p.o. fluids.
--- NOTE | 2024-03-25 14:58 | ESPR_ITS ---
<Statement entered by Alyson Vang MD - 03/25/24 15:29> Senior Resident Attestation: I supervised/discussed management plan with resident physician Dr. Guerrero, and was involved in the care of this patient. I personally saw and examined the patient and discussed the assessment and plan with the entire medicine team, including my attending. I agree with the assessment and plan as documented. Patient's care was discussed with attending physician, Dr. Maru Vang MD PGY-3 Documentation for date of: 03/25/24 Subjective Subjective Interval history: Patient seen at bedside. No acute overnight events. BUN and creatinine still showing significant improvement, creatinine is 1.5 today Patient having increased output from ileostomy, possibly a reason that she is constantly dehydrated. Will start her on loperamide 2 mg and continue IV fluids. Additionally, pending CT with contrast of abdomen prior to possible ileostomy reversal by general surgeon Dr. Flynn. Exam Vital Signs Temp Pulse Resp BP Pulse Ox O2 Del Method O2 Flow Rate 97.8 F 76 16 138/83 H 94 L Room Air 1 03/25/24 12:00 03/25/24 12:00 03/25/24 12:00 03/25/24 12:00 03/25/24 12:00 03/25/24 12:00 03/25/24 07:08 Narrative Exam GENERAL: AAOX3 NEURO: MANAGEMENT ANALYST grossly intact, moves extremities x4 HEENT: Dry mucosa. Eyes open, symmetrical, & clear CARDIO: No chest pain on palpation. Heart RRR, no obvious murmurs PULM: No noted coughing/dyspnea. Lungs CTA B/L, GI: Abdomen soft, nondistended, no pain on palpation. Colostomy area seen, mild cellulitis seen in surrounding area. 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 SKIN/MSK/EXT: No wounds/rashes/edema/amputations, no pain on palpation. Pedal pulses present B/L Objective Labs 03/25/24 06:07 03/25/24 06:07 Labs: Laboratory Results - last 24 hr 03/25/24 06:07 WBC 14.3 H RBC 3.29 L Hgb 9.3 L Hct 29.3 L MCV 89 MCH 28.3 MCHC 31.7 RDW Std Deviation 52.1 H Plt Count 340 Neut % (Auto) 65 Lymph % (Auto) 24 [place] % (Auto) 7 Eos % (Auto) 1 Baso % (Auto) 1 Neut # (Auto) 9.3 H Lymph # (Auto) 3.5 [place] # (Auto) 1.0 H Eos # (Auto) 0.1 Baso # (Auto) 0.1 Immature Gran # (Auto) 0.45 H Absolute Nucleated RBC 0.00 Immature Gran % 3 H Nucleated RBC % 0 Sodium 141 Potassium 4.0 Chloride 107 Carbon Dioxide 27.5 Anion Gap 7 BUN 40 H Creatinine 1.5 H D Estim Creat Clear Calc 28.7 L eGFR 35 L BUN/Creatinine Ratio 27 H Glucose 105 Calculated Osmolality 290 Calcium 8.7 Corrected Calcium 9.4 Phosphorus 2.4 Magnesium 2.0 Total Bilirubin 0.3 AST 29 ALT 26 Alkaline Phosphatase 312 H Total Protein 6.0 Albumin 3.1 L Globulin 2.9 Albumin/Globulin Ratio 1.1 L ABG Interpretation ABG results: 03/21/24 05:40 ABG pH 7.35 ABG pCO2 41 ABG pO2 121 H ABG HCO3 23 ABG O2 Saturation 99 H ABG Base Excess -3 Quality Measures Quality Measures VTE prophylaxis and sepsis Current suspected stage: sepsis Possible source: skin/soft tissue Blood cultures ordered: yes Antibiotic ordered: Yes Advance care planning discussed with:: patient Assessment & Plan Assessment Current Active Medications: Generic Name Dose Route Start Last Admin Trade Name Freq PRN Reason Stop Dose Admin Acetaminophen 650 mg 03/21/24 05:19 Acetaminophen 325 Mg Tablet PO 04/20/24 05:18 Q6H PRN Fever >101.5 Albuterol/Ipratropium 3 ml 03/21/24 15:51 Albuterol/Ipratropium (Duoneb) Rt Tia 3 Ml Nebu INH 04/20/24 18:59 Q4HRRT PRN Shortness of breath Donepezil HCl 10 mg 03/21/24 21:00 03/24/24 21:37 Donepezil Hcl 5 Mg Tablet PO 04/20/24 20:59 10 mg HS ASHISH Administration Heparin Sodium (Porcine) 3,700 unit 03/21/24 17:43 03/21/24 20:09 Heparin Sod Inj 1000 Unit/Ml Vial 10 Ml INDWELLCAT 04/04/24 17:42 3,700 unit PRN PRN Administration DIALYSIS Heparin Sodium (Porcine) 5,000 unit 03/22/24 17:30 03/25/24 09:11 Heparin Sod Inj 5000 Unit/Ml Vial SC 04/05/24 17:29 5,000 unit Q12HR ASHISH Administration Hydralazine HCl 10 mg 03/21/24 15:45 Hydralazine Hcl 10 Mg Tablet PO 04/20/24 17:59 Q6HR PRN SBP>160 Albumin Human 25 gm in 100 mls @ 100 mls/min 03/21/24 10:54 Albuminar-25 Ivpb IV PRN PRN DIALYSIS Ceftriaxone Sodium/Dextrose 50 mls @ 100 mls/hr 03/22/24 18:52 03/25/24 09:11 Rocephin/D5w 1gm Iv Premix IV 03/29/24 18:51 100 mls/hr QDAY ASHISH Administration Metronidazole 500 mg in 100 mls @ 100 mls/hr 03/23/24 09:00 03/25/24 14:40 Flagyl 500 Mg Iv IV 03/30/24 08:59 100 mls/hr Q8HR ASHISH Administration Levothyroxine Sodium 112 mcg/ 137 mcg 03/21/24 07:30 03/25/24 06:43 Levothyroxine Sodium 25 mcg PO 04/20/24 07:29 137 mcg ACBR ASHISH Administration Loperamide HCl 2 mg 03/25/24 12:43 Loperamide 2 Mg Capsule PO 04/01/24 12:42 TID PRN High output iliostomy Memantine 10 mg 03/21/24 21:00 03/25/24 09:11 Memantine Hcl 5 Mg Tablet PO 04/20/24 20:59 10 mg BID ASHISH Administration Metoprolol Tartrate 25 mg 03/21/24 21:00 03/25/24 09:10 Metoprolol Tartrate 25 Mg Tablet PO 04/20/24 20:59 25 mg BID ASHISH Administration Ondansetron HCl 4 mg 03/21/24 06:08 Ondansetron Inj 2 Mg/Ml Inj 2 Ml IV 04/20/24 06:07 Q6H PRN NAUSEA OR VOMITING Protocol Sodium Chloride 3 ml 03/21/24 08:25 Sodium Chloride Rt Tia 0.9% 3 Ml Nebu INH 04/20/24 08:24 PRN PRN SOLN Plan Summary: The patient is a 78-year-old female with a past medical history of hypothyroidism, hypertension, JACKIE, asthma, depression, dementia, recurrent UTI, and is status post hemicolectomy with ileostomy admitted for acute uremic encephalopathy, stage III acute kidney injury, sepsis secondary to UTI versus intra-abdominal abscess. #Acute encephalopathy uremic vs infections #Acute kidney injury #Increased ileostomy output Decreased p.o. intake in the last 2 to 3 days with nausea and vomiting and presence of ileostomy, thus likely prerenal. However, given extensive elevation in creatinine and drop in GFR other etiologies cannot be excluded. Initial creatinine 9.5 (BL 1.0), BUN 121. Will have received total of 3.5 L of IVF. On admission, patient was noted to have hyperkalemia, increased BUN and creatinine of up to 9.5 as well as hyperphosphatemia. UA was positive for UTI, CT abdomen pelvis showed some suspicion for intra-abdominal abscess. The patient was given 3.5 L of NS and 1 dose of ceftriaxone and admitted for management of sepsis secondary to UTI versus intra-abdominal abscess. On review today, patient's potassium was found to be 6.6 and she was started on a hyperkalemic protocol-5 units of insulin, D50 and given 800 mg of sevelamer. Clinically, she no longer has episodes of vomiting or nausea and mentation is back to baseline. Nephrology was consulted for urgent hemodialysis. 03/24/2024-BUN and creatinine still showing significant improvement, creatinine is 1.5 today Patient having increased output from ileostomy, possibly a reason that she is constantly dehydrated. Will continue IV fluids. Will start her on loperamide 2 mg and continue IV fluids. Additionally, pending CT with contrast of abdomen prior to possible ileostomy reversal by general surgeon Dr. Flynn. Plan: -Nephro recs: CT IVF NS and reduce ileostomy output -Loperamide 2mg TID -Continue to monitor CMP -Avoid nephrotoxins -Renally dose medications #Sepsis, secondary to #E.Coli UTI #Possible intra-abdominal abscess #History of recurrent UTI CT A/P prelim report shows possible intra-abdominal abscess. Patient reports dysuria and cloudy urine, noted to have recurrent UTIs. Most recent urine cultures positive for E. coli, pansensitive. WBC on admission-20.9 Additionally, patient is on IV Zosyn for sepsis management. General surgeon Dr. Flynn consulted, recommends to continue wound care 03/25/2024- Patient was evaluated by the general surgeon Dr. Flynn who is considering takedown of the ileostomy following a CT scan with contrast which will be done when renal function is much better. For this reason, we will leave the TDC in for possible dialysis postcontrast CT. CT to be done on Wednesday Otherwise, patient is still on ceftriaxone and metronidazole. Plan: - CT IV Ceftriaxone and metronidazole (Day 4 today) - Possible contrast CT abdomen in the near future ? General Surgeon Dr. Flynn consulted, following recommendations - Wound care --Continue to monitor CBC #Electrolyte imbalances #Hyponatremia #Hyperkalemia-resolved #Hypochloremia-resolved #Hypocalcemia-resolved #Hyperphosphatemia-resolved #Hypomagnesemia-resolved -Hyperkalemic protocol initiated with 5 units of insulin, D50 and sevelamer as well as albuterol. -IVF NS @75cc/hr -Urgent dialysis Plan: ? Nephrology consulted, following recommendations ? Continue to monitor CMP #History of hypothyroidism Plan ? Resume home medication levothyroxine 125 mcg before breakfast #History of hypertension Plan ? Resume home med- Metoprolol tartrate 25mg BID -Hydralazine 10mg Q6HR PRN for SBP >160 #History of depression #History of dementia #History of bipolar #History of anxiety Plan ? Resume home medications donepezil and memantine -Once clinical status improved, resume nortriptyline #History of obstructive sleep apnea Plan ? CPAP at bedtime as needed #History of asthma Plan ? DuoNebs every 4 hours breathing treatment as needed Hospital management: Disposition: 2-3 hospital nights Fluids: 1 L NS at 75 mL/hr Diet: dysphagia 1 - pureed Lines: peripheral DVT prophylaxis: heparin SC GI prophylaxis: not indicated [place]: placed CODE STATUS: full code Case was discussed with senior resident Dr Vang PGY-3 and attending physician, Dr Maru Guerrero MD PGY-1 Attending Provider Attestation/Addendum I have discussed and was present for the essential components of the history, physical examination, diagnosis, and treatment plan with the resident. I agree with the patient's care as documented by the resident and amended herein by me. Casye Mahoney DO. Although this document has been carefully reviewed, there may still be some phonetic and other typographical errors. These errors are purely grammatical due to imperfections in the software program and should not be construed in any way to compromise the substance of the patient's medical care during this visit.
[2024-03-25] MEDS: DONEPEZIL HCL 5 MG TABLET 10 MG PO (20:17)
[2024-03-25] MEDS: LOPERAMIDE 2 MG CAPSULE PO (21:02)
[2024-03-26] VITALS (12 sets, daily range): BP systolic 119–154; BP diastolic 53–82; PULSE 61–119; RESP 14–98; TEMP 36.1–36.8; O2SAT 94–100
[2024-03-26] MEDS: metroNIDAZOLE/NS 500 MG IVPB 500 MG/100 ML BAG 100 MG IV ×2 (05:21→14:12)
[2024-03-26] MEDS: LEVOTHYROXINE SODIUM 112 MCG, LEVOTHYROXINE SODIUM 25 MCG 137 MCG PO (05:21)
[2024-03-26 06:05] LABS: Basophils # (Auto) 0.1 Thou/mm3 (0.0-0.2); Basophils % (Auto) 0 % (0-2.5); Eosinophils # (Auto) 0.1 Thou/mm3 (0.0-0.5); Eosinophils % (Auto) 1 % (0-10); Hematocrit 32.8 % (36.0-46.0); Hemoglobin 10.2 g/dL (12.0-16.0); Immature Granulocytes % (Auto) 3 % (0-0); Immature Granulocytes Auto 0.39 Thou/mm3 (0.00-0.00); Lymphocytes # (Auto) 2.8 Thou/mm3 (1.0-4.8); Lymphocytes % (Auto) 24 % (10-50); Mean Corpuscular HGB Conc 31.1 g/dl (31.0-37.0); Mean Corpuscular Hemoglobin 28.3 pg (25.0-35.0); Mean Corpuscular Volume 91 fL (80-100); Monocytes # (Auto) 0.9 Thou/mm3 (0.0-0.8); Monocytes % (Auto) 8 % (0-12); Neutrophils # (Auto) 7.5 Thou/mm3 (1.8-7.7); Neutrophils % (Auto) 64 % (37-80); Nucleated Red Blood Cell % 0 /100 WBC (0); Platelet Count 340 Thou/mm3 (140-440); RDW Standard Deviation 53.1 fL (36.4-46.3); Red Blood Count 3.61 Miln/mm3 (4.00-5.20); White Blood Count 11.8 Thou/mm3 (3.6-11.0)
[2024-03-26 06:19] LABS: Alanine Aminotransferase 18 U/L (10-49); Albumin, Serum 3.2 gm/dL (3.4-4.8); Albumin/Globulin Ratio 1.1 (1.2-2.2); Alkaline Phosphatase 283 U/L (46-116); Anion Gap 7 (7-16); Aspartate Amino Transferase 25 U/L (0-34); BUN/Creatinine Ratio 28 Ratio (12-20); Bilirubin,Total 0.4 mg/dL (0.3-1.2); Blood Urea Nitrogen 39 mg/dL (9-23); Calcium 8.7 mg/dL (8.3-10.6); Calcium (Corrected) 9.3 mg/dL (8.5-10.1); Carbon Dioxide 28.9 mMol/L (20.0-31.0); Chloride 107 mMol/L (98-107); Creatinine (Component) 1.4 mg/dL (0.6-1.3); Estimated Creatinine Clearance 30.7 mL/min (>60); Glucose 100 mg/dL (74-106); Magnesium 1.5 mg/dL (1.6-2.6); Osmolality,Calculated 294 (275-295); Phosphorous 2.3 mg/dL (2.4-5.1); Potassium 3.6 mMol/L (3.4-5.1); Sodium 143 mMol/L (136-145); Total Protein 6.2 gm/dL (5.7-8.2); eGFR 38 See Note
[2024-03-26] MEDS: LOPERAMIDE 2 MG CAPSULE PO ×2 (06:19→11:12)
[2024-03-26] MEDS: HEPARIN SOD INJ 5000 UNIT/ML VIAL SC ×2 (09:28→20:43)
[2024-03-26] MEDS: METOPROLOL TARTRATE 25 MG TABLET PO ×2 (09:28→20:42)
[2024-03-26] MEDS: cefTRIAXone/D5w 1gm IV premix 50 ML IV (09:28)
[2024-03-26] MEDS: MEMANTINE HCL 5 MG TABLET 10 MG PO ×2 (09:29→20:42)
[2024-03-26] MEDS: NAPH,KPH MBDB 1 PACKET (1.5 GM) PO (11:12)
[2024-03-26] MEDS: Magnesium Sulfate 4 GM Ivpb 4 GM/50 ML BAG IV (11:12)
--- NOTE | 2024-03-26 12:45 | PD.NEPHPROG ---
Documentation for date of: 03/26/24 Subjective Subjective Interval history: 78 y/o F with PMHx significant for hypothyroidism, hypertension, JACKIE, asthma, depression, dementia, recurrent UTI, and is status post hemicolectomy with ileostomy presents with altered mental status and nausea and vomiting. Patient initially presented to ED with altered mentation and was not able to provide history. Subsequently given 2.5 L of fluids per sepsis protocol and mentation slowly improved. Upon evaluation, patient endorsed 2 to 3 days of nausea and vomiting along with decreased p.o. intake. Also endorses abdominal pain at ileostomy site, decreased ileostomy output, as well as dysuria and cloudy urine but denies fever or chills. Otherwise also denies shortness of breath or chest discomfort. Of note, patient recently discharged on 02/15 for ileostomy leakage/malfunction. CT head unremarkable. CT A/P showed Soft tissue mass in the anterior abdominal wall 2.8 x 2.2 cm and aggregate of small bowel versus abscess in the right lower abdomen poorly defined, at least 4 cm in dimension. Patient recieved IVF, magnesisum, zosyn and rocephin in ED. Labs showed sodium 125, potassium 6.6, BUN 134, Asphalt Distributor Tender 9.3, eGFR 4, Corrected Ca 8.3, phos 10.7, Mg 1.1. Patient has no known history CKD. On exam patient was lethargic but responsive, followed commands, A&Ox3. Appears euvolemic. Nephrology consulted for acute renal failure, plan for emergent dialysis. 03/22: Patient seen and examined in bed. Patient remains lethargic. Signs of leaking around ileostomy bag. Labs significantly improved after dialysis session yesterday. Sodium 129, potassium 4.1, bicarb 25.4, BUN 62, creatinine 2.6, eGFR 12. Plan for dialysis today. Prelim urine culture positive for gram-negative rods. Patient currently on Zosyn. 03/23: Patient seen and examined in bed. Patient is somewhat lethargic but improved from before. Sodium 135, potassium 3.7, bicarb 28.7, BUN 35, creatinine 2.2, eGFR 22. Will give 1 L normal saline at 70 mL/h and 40 mEq potassium p.o. No plans for dialysis today. 03/24/2024 patient currently seen in telemetry. More alert and awake. Patient has more than a liter of urine output although 1800 colostomy losses. Blood pressure 144/62, heart rate 83. WBC 12.8, hemoglobin 9.1, platelets 329. Sodium 139, potassium 4.2, BUN 43, creatinine 2.1, phosphorus 2.2, magnesium 1.7 Primary team wanted to do CT abdomen with contrast. Dr. Flynn suggested can hold CT with contrast for 1 to 2 days. 1 L IV fluids given. Will monitor renal function closely. No need for dialysis today. However to for the weekend will leave Vas-Cath. 03/26/2024 patient currently seen in medical floor. Resting comfortably. Still having significant colostomy losses. CT abdomen with contrast ordered for tomorrow. Labs, medications reviewed. Patient feeling much better. Review of Systems Review of Systems Narrative Review of Systems: CONSTITUTIONAL: Patient denies any fever, chills. Patient feeling much better HEENT: Denies any visual disturbances or hearing problems. CARDIOVASCULAR: Patient denies any chest pain, shortness of breath, swelling in the lower extremities. PULMONARY: Patient denies any shortness of breath, cough. GASTROINTESTINAL: patient complaining of discomfort around the colostomy site. Leakage noted. GENITOURINARY: Patient denies any urinary symptoms of burning or frequency or hematuria, denies any form in the urine. SKIN: Denies any rash. MUSCULOSKELETAL: Gait imbalance NEUROLOGICAL: Denies any neurological problems of strokes, seizures or confusion. Denies any memory problems. Exam Vital Signs Temp Pulse Resp BP Pulse Ox O2 Del Method O2 Flow Rate 36.3 C 58 L 15 125/58 L 100 Room Air 1 03/27/24 04:00 03/27/24 04:00 03/27/24 04:00 03/27/24 04:00 03/27/24 04:00 03/27/24 04:00 03/26/24 04:00 Narrative Exam GENERAL APPEARANCE: Fragile lady currently seen in medical floor NECK: Neck supple, no JVD or bruit CARDIOVASCULAR: Heart regular, no murmurs LUNGS/CHEST: Chest clear to auscultation. No rales, rhonchi, wheezing ABDOMEN: Soft, bowel sounds present. She has colostomy and leakage around the colostomy with erythema noted. Significant amount of copious liquid stool noted. EXTREMITIES: No edema, clubbing or cyanosis. SKIN: Redness around colostomy site MUSCULOSKELETAL: In bed NEUROLOGICAL : No neurological deficits. Alert and awake Objective Labs 03/26/24 22:20 03/26/24 22:20 Labs: Laboratory Results - last 24 hr 03/26/24 03/26/24 05:08 22:20 WBC 11.8 H 14.1 H RBC 3.61 L 3.44 L Hgb 10.2 L 9.9 L Hct 32.8 L 31.0 L MCV 91 90 MCH 28.3 28.8 MCHC 31.1 31.9 RDW Std Deviation 53.1 H 52.4 H Plt Count 340 317 Neut % (Auto) 64 63 Lymph % (Auto) 24 26 [place] % (Auto) 8 9 Eos % (Auto) 1 1 Baso % (Auto) 0 0 Neut # (Auto) 7.5 8.9 H Lymph # (Auto) 2.8 3.6 [place] # (Auto) 0.9 H 1.2 H Eos # (Auto) 0.1 0.1 Baso # (Auto) 0.1 0.0 Immature Gran # (Auto) 0.39 H 0.27 H Absolute Nucleated RBC 0.00 0.00 Immature Gran % 3 H 2 H Nucleated RBC % 0 0 PT 15.6 H INR 1.5 H APTT 31.9 Sodium 143 138 Potassium 3.6 3.2 L Chloride 107 103 Carbon Dioxide 28.9 24.1 Anion Gap 7 11 BUN 39 H 37 H Creatinine 1.4 H 1.5 H Estim Creat Clear Calc 30.7 L 28.6 L eGFR 38 L 35 L BUN/Creatinine Ratio 28 H 25 H Glucose 100 206 H D Calculated Osmolality 294 290 Calcium 8.7 8.7 Corrected Calcium 9.3 9.3 Phosphorus 2.3 L Magnesium 1.5 L 2.5 Total Bilirubin 0.4 0.3 AST 25 24 ALT 18 21 Alkaline Phosphatase 283 H D 260 H D Ammonia 29 Troponin I 0.084 H* Total Protein 6.2 6.1 Albumin 3.2 L 3.2 L Globulin 3.0 2.9 Albumin/Globulin Ratio 1.1 L 1.1 L ABG Interpretation ABG results: 03/21/24 05:40 ABG pH 7.35 ABG pCO2 41 ABG pO2 121 H ABG HCO3 23 ABG O2 Saturation 99 H ABG Base Excess -3 Assessment & Plan Additional Assessment & Plan Additional Plan: 78 y/o F with PMHx significant for hypothyroidism, hypertension, JACKIE, asthma, depression, dementia, recurrent UTI, and is status post hemicolectomy with ileostomy admitted for acute uremic encephalopathy, stage III acute kidney injury, sepsis secondary to UTI versus intra-abdominal abscess. #Acute kidney injury-suspect patient in ischemic ATN Patient received 2 dialysis treatments and started to make good urine. Held dialysis. Creatinine improved.-Will need CT abdomen with IV contrast . Continue with oral hydration. -Avoid nephrotoxins -Renally dose medications -daily labs #Sepsis, secondary to GI/UTI-on antibiotics plan of care discussed with primary team, Dr. Flynn #UTI, gram-negative rods #Electrolyte imbalances #Hypothyroidism #Hypertension #Depression #Dementia Management as per primary team.
--- NOTE | 2024-03-26 13:00 | ESPR_ITS ---
<Statement entered by Alyson Vang MD - 03/26/24 15:24> Senior Resident Attestation: I supervised/discussed management plan with resident physician Dr. Mccarthy, and was involved in the care of this patient. I personally saw and examined the patient and discussed the assessment and plan with the entire medicine team, including my attending. I agree with the assessment and plan as documented. Patient's care was discussed with attending physician, Dr. Maru Vang MD PGY-3 Documentation for date of: 03/26/24 Subjective Subjective Interval history: Patient seen at bedside. No acute overnight events. BUN and creatinine still showing significant improvement, creatinine is 1.4 today. Patient having increased output from ileostomy, patient's loperamide will be increased to 10 mg 3 times daily. Patient is pending CT with contrast of abdomen. Pending evaluation for possible ileostomy reversal by general surgery. Exam Vital Signs Temp Pulse Resp BP Pulse Ox O2 Del Method O2 Flow Rate 97.0 F 66 19 142/66 H 95 Room Air 1 03/26/24 12:00 03/26/24 12:00 03/26/24 12:00 03/26/24 12:00 03/26/24 12:00 03/26/24 12:00 03/26/24 04:00 Narrative Exam GENERAL: AAOX3 NEURO: PIPELINE GANG SUPERVISOR grossly intact, moves extremities x4 HEENT: Dry mucosa. Eyes open, symmetrical, & clear CARDIO: No chest pain on palpation. Heart RRR, no obvious murmurs PULM: No noted coughing/dyspnea. Lungs CTA B/L, GI: Abdomen soft, nondistended, no pain on palpation. Colostomy area seen, mild cellulitis seen in surrounding area. BSx4 URO/BILLING COORDINATOR:: No further abnormalities noted. SKIN/MSK/EXT: No wounds/rashes/edema/amputations, no pain on palpation. Pedal pulses present B/L Objective Labs 03/26/24 05:08 03/26/24 05:08 Labs: Laboratory Results - last 24 hr 03/26/24 05:08 WBC 11.8 H RBC 3.61 L Hgb 10.2 L Hct 32.8 L MCV 91 MCH 28.3 MCHC 31.1 RDW Std Deviation 53.1 H Plt Count 340 Neut % (Auto) 64 Lymph % (Auto) 24 [place] % (Auto) 8 Eos % (Auto) 1 Baso % (Auto) 0 Neut # (Auto) 7.5 Lymph # (Auto) 2.8 [place] # (Auto) 0.9 H Eos # (Auto) 0.1 Baso # (Auto) 0.1 Immature Gran # (Auto) 0.39 H Absolute Nucleated RBC 0.00 Immature Gran % 3 H Nucleated RBC % 0 Sodium 143 Potassium 3.6 Chloride 107 Carbon Dioxide 28.9 Anion Gap 7 BUN 39 H Creatinine 1.4 H Estim Creat Clear Calc 30.7 L eGFR 38 L BUN/Creatinine Ratio 28 H Glucose 100 Calculated Osmolality 294 Calcium 8.7 Corrected Calcium 9.3 Phosphorus 2.3 L Magnesium 1.5 L Total Bilirubin 0.4 AST 25 ALT 18 Alkaline Phosphatase 283 H D Total Protein 6.2 Albumin 3.2 L Globulin 3.0 Albumin/Globulin Ratio 1.1 L ABG Interpretation ABG results: 03/21/24 05:40 ABG pH 7.35 ABG pCO2 41 ABG pO2 121 H ABG HCO3 23 ABG O2 Saturation 99 H ABG Base Excess -3 Quality Measures Quality Measures VTE prophylaxis and sepsis Current suspected stage: ruled out Possible source: skin/soft tissue Blood cultures ordered: yes Antibiotic ordered: Yes Advance care planning discussed with:: patient Assessment & Plan Assessment Current Active Medications: Generic Name Dose Route Start Last Admin Trade Name Freq PRN Reason Stop Dose Admin Acetaminophen 650 mg 03/21/24 05:19 Acetaminophen 325 Mg Tablet PO 04/20/24 05:18 Q6H PRN Fever >101.5 Albuterol/Ipratropium 3 ml 03/21/24 15:51 Albuterol/Ipratropium (Duoneb) Rt Tia 3 Ml Nebu INH 04/20/24 18:59 Q4HRRT PRN Shortness of breath Donepezil HCl 10 mg 03/21/24 21:00 03/25/24 20:17 Donepezil Hcl 5 Mg Tablet PO 04/20/24 20:59 10 mg HS ASHISH Administration Heparin Sodium (Porcine) 3,700 unit 03/21/24 17:43 03/21/24 20:09 Heparin Sod Inj 1000 Unit/Ml Vial 10 Ml INDWELLCAT 04/04/24 17:42 3,700 unit PRN PRN Administration DIALYSIS Heparin Sodium (Porcine) 5,000 unit 03/22/24 17:30 03/26/24 09:28 Heparin Sod Inj 5000 Unit/Ml Vial SC 04/05/24 17:29 5,000 unit Q12HR ASHISH Administration Hydralazine HCl 10 mg 03/21/24 15:45 Hydralazine Hcl 10 Mg Tablet PO 04/20/24 17:59 Q6HR PRN SBP>160 Albumin Human 25 gm in 100 mls @ 100 mls/min 03/21/24 10:54 Albuminar-25 Ivpb IV PRN PRN DIALYSIS Ceftriaxone Sodium/Dextrose 50 mls @ 100 mls/hr 03/22/24 18:52 03/26/24 09:28 Rocephin/D5w 1gm Iv Premix IV 03/29/24 18:51 100 mls/hr QDAY ASHISH Administration Metronidazole 500 mg in 100 mls @ 100 mls/hr 03/23/24 09:00 03/26/24 05:21 Flagyl 500 Mg Iv IV 03/30/24 08:59 100 mls/hr Q8HR ASHISH Administration Levothyroxine Sodium 112 mcg/ 137 mcg 03/21/24 07:30 03/26/24 05:21 Levothyroxine Sodium 25 mcg PO 04/20/24 07:29 137 mcg ACBR ASHISH Administration Loperamide HCl 10 mg 03/26/24 14:00 Loperamide 2 Mg Capsule PO 04/02/24 13:59 TID ASHISH Memantine 10 mg 03/21/24 21:00 03/26/24 09:29 Memantine Hcl 5 Mg Tablet PO 04/20/24 20:59 10 mg BID ASHISH Administration Metoprolol Tartrate 25 mg 03/21/24 21:00 03/26/24 09:28 Metoprolol Tartrate 25 Mg Tablet PO 04/20/24 20:59 25 mg BID ASHISH Administration Ondansetron HCl 4 mg 03/21/24 06:08 Ondansetron Inj 2 Mg/Ml Inj 2 Ml IV 04/20/24 06:07 Q6H PRN NAUSEA OR VOMITING Protocol Sodium Chloride 3 ml 03/21/24 08:25 Sodium Chloride Rt Tia 0.9% 3 Ml Nebu INH 04/20/24 08:24 PRN PRN SOLN Plan Summary: The patient is a 78-year-old female with a past medical history of hypothyroidism, hypertension, JACKIE, asthma, depression, dementia, recurrent UTI, and is status post hemicolectomy with ileostomy admitted for acute uremic encephalopathy, stage III acute kidney injury, sepsis secondary to UTI versus intra-abdominal abscess. #Acute encephalopathy uremic vs infections #Acute kidney injury #Increased ileostomy output Decreased p.o. intake in the last 2 to 3 days with nausea and vomiting and presence of ileostomy, thus likely prerenal. However, given extensive elevation in creatinine and drop in GFR other etiologies cannot be excluded. Initial creatinine 9.5 (BL 1.0), BUN 121. Will have received total of 3.5 L of IVF. On admission, patient was noted to have hyperkalemia, increased BUN and creatinine of up to 9.5 as well as hyperphosphatemia. UA was positive for UTI, CT abdomen pelvis showed some suspicion for intra-abdominal abscess. The patient was given 3.5 L of NS and 1 dose of ceftriaxone and admitted for management of sepsis secondary to UTI versus intra-abdominal abscess. On review today, patient's potassium was found to be 6.6 and she was started on a hyperkalemic protocol-5 units of insulin, D50 and given 800 mg of sevelamer. Clinically, she no longer has episodes of vomiting or nausea and mentation is back to baseline. Nephrology was consulted for urgent hemodialysis. BUN and creatinine still showing significant improvement, creatinine is 1.4 today, GFR 38 Patient having increased output from ileostomy, Pending CT with contrast of abdomen prior to possible ileostomy reversal by general surgeon Dr. Flynn. Plan: -Loperamide 10mg TID -Continue to monitor CMP -Avoid nephrotoxins -Renally dose medications -Consulted general surgery appreciate recommendations -Consulted nephrology, appreciate recommendations #Sepsis, secondary to #E.Coli UTI #Possible intra-abdominal abscess #History of recurrent UTI CT A/P prelim report shows possible intra-abdominal abscess. Patient reports dysuria and cloudy urine, noted to have recurrent UTIs. Most recent urine cultures positive for E. coli, pansensitive. WBC on admission-20.9 Additionally, patient is on IV Zosyn for sepsis management. General surgeon Dr. Flynn consulted, recommends to continue wound care Patient was evaluated by the general surgeon Dr. Flynn who is considering takedown of the ileostomy following a CT scan with contrast which will be done when renal function is much better. For this reason, we will leave the TDC in for possible dialysis postcontrast CT. CT to be done on Wednesday Otherwise, patient is still on ceftriaxone and metronidazole. Plan: -Continue IV Ceftriaxone and metronidazole (Day 5 today) - Possible contrast CT abdomen on Wednesday ? General Surgeon Dr. Flynn consulted, following recommendations -Referred to wound care -Continue to monitor CBC #Electrolyte imbalances #Hyponatremia #Hyperkalemia-resolved #Hypochloremia-resolved #Hypocalcemia-resolved #Hyperphosphatemia-resolved #Hypomagnesemia-resolved -Hyperkalemic protocol initiated with 5 units of insulin, D50 and sevelamer as well as albuterol on admission. -Urgent dialysis indicated on admission, patient had temporary catheter placement. -Holding dialysis for now as renal function is improving Plan: ? Nephrology consulted, following recommendations - Hold dialysis, continue to monitor renal function ? Continue to monitor CMP #History of hypothyroidism Plan ? Resume home medication levothyroxine 125 mcg before breakfast #History of hypertension Plan ? Resume home med- Metoprolol tartrate 25mg BID -Hydralazine 10mg Q6HR PRN for SBP >160 #History of depression #History of dementia #History of bipolar #History of anxiety Plan ? Resume home medications donepezil and memantine -Once clinical status improved, will consider resuming nortriptyline #History of obstructive sleep apnea Plan ? CPAP at bedtime as needed #History of asthma Plan ? DuoNebs every 4 hours breathing treatment as needed DVT prophylaxis: Subcutaneous heparin GI prophylaxis: Not indicated Diet: Dysphagia 1?pur?ed Lines: Peripheral IV Code status: Full code Case discussed with Attending Dr. Mahoney and Dr. aVng PGY3. Darian Shirley PGY1 Attending Provider Attestation/Addendum I have discussed and was present for the essential components of the history, physical examination, diagnosis, and treatment plan with the resident. I agree with the patient's care as documented by the resident and amended herein by me. Casey Mahoney, DO. Patient seen and evaluated this AM. Vital signs stable, patient afebrile overnight, did have copious amounts of leakage around her ostomy site as well as copious output. We will increase the loperamide dosage today, continue ceftriaxone and Flagyl, CT abdomen and pelvis with contrast ordered for tomorrow, appreciate nephrology and surgical recommendations. Will continue to monitor closely Although this document has been carefully reviewed, there may still be some phonetic and other typographical errors. These errors are purely grammatical due to imperfections in the software program and should not be construed in any way to compromise the substance of the patient's medical care during this visit.
[2024-03-26] MEDS: LOPERAMIDE 2 MG CAPSULE 10 MG PO ×2 (14:23→21:11)
--- NOTE | 2024-03-26 16:25 | PC.NURSE ---
Received a pt from Bettina Mcnulty report received
--- NOTE | 2024-03-26 17:41 | PC.NURSE ---
Pt has a ileostomy pouch, has a massive leakage . Iliostomy bag is changed now.
[2024-03-26] MEDS: DONEPEZIL HCL 5 MG TABLET 10 MG PO (20:42)
[2024-03-26] MEDS: metroNIDAZOLE 250 MG TABLET 500 MG PO (21:11)
--- NOTE | 2024-03-26 21:42 | XR_ITS ---
Examination: CT brain head without contrast. 2-D sagittal coronal reconstructions Date and time of exam:March 26, 2024 1015 hrs. Indications: Stroke alert, onset focal neurologic deficit, change in mental status, history nausea vomiting altered mental status lethargy March 21, 2024 CTDI: vol (mGy):49.90 DLP: (mGycm):963 Technique: Multiple CT axial sections of the brain have been obtained, 5 mm slice thickness. Contrast has not been administered. 2-D sagittal, coronal reconstructions have been obtained Low dose protocols were performed. One or more of the following dose reduction techniques were used; automated exposure control, adjustment of the mA and/or KV according to patient size, use of iterative reconstruction technique. Findings: No significant ventricular enlargement. Intra-axial or extra-axial hemorrhage density is not seen. No mass effect or midline shift Basal cisterns are not remarkable. Fourth ventricle is midline. Cranial vault intact. Impression: Negative for acute hemorrhage, mass effect or midline shift Consider brain MRI follow-up stroke protocol
--- NOTE | 2024-03-26 21:42 | XR_ITS ---
Examination: CTA carotids with intravenous contrast CTA brain, head with intravenous contrast. 2-D sagittal, coronal reconstructions. 3-D reconstructions. Exam date and time: March 26, 2024 1021 hrs. Indications: Altered mental status, stroke alert today CTDI: vol (mGy) 49.65 DLP: (mGycm) 500 Technique: Multiple CTA axial brain, head carotid images post intravenous contrast injection 75 cc, [id number]. 2-D sagittal, coronal reconstructions. 3-D reconstructions, 3-D post processing including vascular maximum intensity projection images. Low dose protocols were performed. One or more of the following dose reduction techniques were used; automated exposure control, adjustment of the mA and/or KV according to patient size, use of iterative reconstruction technique. Findings: No significant common carotid carotid bifurcation or internal carotid artery stenoses Dominant left vertebral artery with no critical stenoses No cerebral large vessel arterial occlusions, thrombus, dissection or cerebral aneurysm Impression: No significant neck arterial stenoses No cerebral large vessel arterial occlusions, thrombus, dissection or cerebral aneurysm
--- NOTE | 2024-03-26 21:50 | EKG_ITS ---
[facility] Test Date: 2024-03-26 Pat Name: DINO MUNSON Department: Room: S376A Gender: Female All Purpose Clerk: MARIELA : 1945 Requested By: Madhu Juarez Order Number: [id number] Reading MD: Madhu Juarez Measurements Intervals [place] Rate: 81 P: 35 HI: 147 QRS: 34 QRSD: 72 T: 108 QT: 428 QTc: 497 Interpretive Statements SINUS RHYTHM WITH FREQUENT SUPRAVENTRICULAR PREMATURE COMPLEXES ST DEVIATION AND MODERATE T-WAVE ABNORMALITY, CONSIDER LATERAL ISCHEMIA [-0.1+ mV T WAVE IN I/aVL/V5/V6] Compared to ECG 03/21/2024 08:42:36 No significant changes /store/S0/[id number].pdf
--- NOTE | 2024-03-26 22:18 | PC.NURSE ---
Addendum entered by Edwin Sandoval RN 03/27/24 00:02: Patient Transferred to 261 NOT 251 Original Note: At 2135, a LIFT ELECTRICIAN was activated due to seizure-like symptoms observed in the patient. Symptoms included a blank stare, tonic-clonic movements of the arms, and decreased mentation. A tele-neurology consult was initiated D/t left sided weakness and slurred speech , and an NIHSS assessment was completed by ICU charge. The patient was transported to CT at this time for further evaluation. Upgrade to Tele transferred to 251
--- NOTE | 2024-03-26 22:27 | ESCONSULT_ITS ---
Tele Neuro Consultation Consultation Date 03/26/24 Most Recent Vital Signs Last Vital Signs Temp 97.6 F 03/26/24 20:00 Pulse 119 H 03/26/24 22:10 Resp 18 03/26/24 22:10 BP 142/69 H 03/26/24 20:42 Pulse Ox 99 03/26/24 22:10 O2 Del Method Room Air 03/26/24 20:00 O2 Flow Rate 1 03/26/24 04:00 Laboratory-Coagulation Panel PT 12.7 Seconds (9.0-12.2) H D 03/21/24 08:35 INR 1.2 (0.9-1.3) 03/21/24 08:35 APTT 33.3 Seconds (22.0-36.0) 03/21/24 08:35 Consultation Narrative [facility] Tele[facility]urology Consult Services Patient Name:???Roula Shell Date of :???1945 Identification Number:??? Date of Service:???03/26/2024 21:46:44 Diagnosis: ?G40.89 - Other seizures Impression: ?78 yo F currently admitted for management of encephalopathy, MAKENZIE, and sepsis who was stroke alerted for seizure-like activity followed by possible left-sided weakness. Other than mild dysarthria, her neurologic exam was grossly non-focal. Overall, suspect patient may have experienced a focal seizure given reported left-sided weakness immediately afterwards. Presence of focal findings does increase risk of epilepsy and would warrant empiric initiation of antiseizure medications. Recommend Keppra and further seizure workup as discussed below. Our recommendations are outlined below. Recommendations: ?Please load with Keppra 1000 mg followed by 500 mg BID (renally dosed) ?MRI brain without contrast to assess for seizure focus ?Baseline EEG to assess for seizure disorder/propensity ?Maintain seizure precautions ?Will otherwise defer management of MAKENZIE and sepsis to primary team Sign Out: ? Discussed with Rapid Response Team Advanced Imaging: Advanced Imaging Deferred because: Stroke not suspected with clinical presentation and exam Poor functional status at baseline, a greater risk than benefit with acute intervention Metrics: Last Known Well: 03/26/2024 21:30:00 Dispatch Time: 03/26/2024 21:46:44 Initial Response Time: 03/26/2024 21:48:15Symptoms: seizure-like activity. Initial patient interaction: 03/26/2024 21:52:06 NIHSS Assessment Completed: 03/26/2024 22:01:53Patient is not a candidate for Thrombolytic. Thrombolytic Medical Decision: 03/26/2024 22:01:55Patient was not deemed candidate for Thrombolytic because of following reasons: Suspected seizure with post-ictal deficits. Stroke severity too mild (non-disabling) . I personally Reviewed the CT Head and it Showed no acute process Primary Provider Notified of Diagnostic Impression and Management Plan on: 03/26/2024 22:08:37 Spoke With: Primary team resident (on camera) Able to Reach 03/26/2024 22:08:37 History of Present Illness:Patient is a 78 year old Female. Inpatient stroke alert was called for symptoms of seizure-like activity. Per report, patient is currently admitted for management of acute metabolic/infectious encephalopathy, MAKENZIE, and sepsis secondary to E coli UTI. On the evening of 03/26, patient was stroke alerted for seizure-like activity followed by possible left-sided weakness. She was last known normal around 9:30 PM. The semiology of the event was described as bilateral jerking of her arms with a blank stare for about 2 minutes before resolving. Afterwards, she was confused and noted to have possible left-sided weakness by staff. At the time of my evaluation, however, she only reported generalized weakness without any focal deficits. She denied any history of seizures in the past. Per nursing report, she become tachycardic and hypertensive during the episode. Patient reports that she does not ambulate at bedside. Past Medical History: ?Hypertension Other PMH:? anxiety, hypothyroidism, depression, dementia, anxiety, bipolar disorder Medications: Anticoagulant use:??Yes?SQH (DVT PPx) No Antiplatelet use Reviewed EMR for current medications Allergies:? Reviewed Description:?Haldol, naproxen, fluoxetine Social History: Drug Use: No Family History: There is no family history of premature cerebrovascular disease pertinent to this consultation ROS : 14 Points Review of Systems was performed and was negative except mentioned in HPI. Past Surgical History: There Is No Surgical History Contributory To Today?s Visit Examination: BP(180/79),?Pulse(120), 1A: Level of Consciousness - Alert; keenly responsive?+ 0 1B: Ask Month and Age - Both Questions Right?+ 0 1C: Blink Eyes & Squeeze Hands - Performs Both Tasks?+ 0 2: Test Horizontal Extraocular Movements - Normal?+ 0 3: Test Visual Emery - No Visual Loss?+ 0 4: Test Facial Palsy (Use Grimace if Obtunded) - Normal symmetry?+ 0 5A: Test Left Arm Motor Drift - No Drift for 10 Seconds?+ 0 5B: Test Right Arm Motor Drift - No Drift for 10 Seconds?+ 0 6A: Test Left Leg Motor Drift - No Drift for 5 Seconds?+ 0 6B: Test Right Leg Motor Drift - No Drift for 5 Seconds?+ 0 7: Test Limb Ataxia (FNF/Heel-Green) - No Ataxia?+ 0 8: Test Sensation - Normal; No sensory loss?+ 0 9: Test Language/Aphasia - Normal; No aphasia?+ 0 10: Test Dysarthria - Mild-Moderate Dysarthria: Slurring but can be understood?+ 1 11: Test Extinction/Inattention - No abnormality?+ 0 NIHSS Score:?1 Pre-Morbid Modified [place] Scale:5 Points = Severe disability; bedridden, incontinent and requiring constant nursing care and attention Spoke with :?Primary team resident (on camera) This consult was conducted in real time using interactive audio and video technology. Patient was informed of the technology being used for this visit and agreed to proceed. Patient located in hospital and provider located at home/office setting. Patient is being evaluated for possible acute neurologic impairment and high probability of imminent or life-threatening deterioration. I spent total of 30 minutes providing care to this patient, including time for face to face visit via telemedicine, review of medical records, imaging studies and discussion of findings with providers, the patient and/or family. Dr Hamzah Friedman [facility] For Inpatient follow-up with [facility] physician please call [facility] at . As we are not an outpatient service for any post hospital discharge needs please contact the hospital for assistance. If you have any questions for the [facility] physicians or need to reconsult for clinical or diagnostic changes please contact us via [facility] at .
[2024-03-26 22:42] LABS: Basophils % (Auto) 0 % (0-2.5); Eosinophils # (Auto) 0.1 Thou/mm3 (0.0-0.5); Eosinophils % (Auto) 1 % (0-10); Hemoglobin 9.9 g/dL (12.0-16.0); Immature Granulocytes % (Auto) 2 % (0-0); Immature Granulocytes Auto 0.27 Thou/mm3 (0.00-0.00); Lymphocytes # (Auto) 3.6 Thou/mm3 (1.0-4.8); Lymphocytes % (Auto) 26 % (10-50); Mean Corpuscular HGB Conc 31.9 g/dl (31.0-37.0); Mean Corpuscular Hemoglobin 28.8 pg (25.0-35.0); Mean Corpuscular Volume 90 fL (80-100); Monocytes # (Auto) 1.2 Thou/mm3 (0.0-0.8); Monocytes % (Auto) 9 % (0-12); Neutrophils # (Auto) 8.9 Thou/mm3 (1.8-7.7); Neutrophils % (Auto) 63 % (37-80); Nucleated Red Blood Cell % 0 /100 WBC (0); Platelet Count 317 Thou/mm3 (140-440); RDW Standard Deviation 52.4 fL (36.4-46.3); Red Blood Count 3.44 Miln/mm3 (4.00-5.20); White Blood Count 14.1 Thou/mm3 (3.6-11.0)
[2024-03-26 22:50] LABS: INR 1.5 (0.9-1.3); Partial Thromboplastin Time 31.9 Seconds (22.0-36.0); Prothrombin Time 15.6 Seconds (9.0-12.2)
[2024-03-26 22:51] LABS: Ammonia 29 uMol/L (11-32)
--- NOTE | 2024-03-26 22:54 | EVENTNT_ITS ---
<Statement entered by Ayaz Borja MD - 03/27/24 01:46> I was present for the essential components of the history, physical examination, diagnosis, and treatment plan with the resident. I have reviewed the documentation, discussed the case with the resident and agree with the patient's care as documented by the resident. Ayaz Borja MD Documentation for date of: 03/26/24 Event Note Event Note: At 21:35, a rapid response was initiated for a patient experiencing shakiness, a blank stare, and possible seizure or stroke symptoms. On arrival, the patient was tachycardic (heart rate 132), hypertensive (BP 175/94), and had normal oxygen saturation (99%). The patient was slow to respond. A stroke alert was called, and Teleneuro was consulted. The patient was administered a loading dose of Keppra. After two minutes, the patient returned to baseline, becoming more responsive and able to follow instructions, although left hand weakness persisted. A stroke protocol was initiated, and a CT head scan was ordered. The patient will undergo an MRI stroke protocol. Based on Teleneuro recommendations, the patient will start 500 mg of Keppra twice daily and have an EEG tomorrow. The patient is on donepezil and memantine for cognitive impairment, which, in combination with impaired kidney function, increases the risk of seizures. Memantine was held, and only donepezil will continue. Above will be signed out to the day team for further follow-up. Patient care was discussed with attending physician Dr. Jonh Cooper MD PGY-2
[2024-03-26 22:57] LABS: Alanine Aminotransferase 21 U/L (10-49); Albumin, Serum 3.2 gm/dL (3.4-4.8); Albumin/Globulin Ratio 1.1 (1.2-2.2); Alkaline Phosphatase 260 U/L (46-116); Anion Gap 11 (7-16); Aspartate Amino Transferase 24 U/L (0-34); BUN/Creatinine Ratio 25 Ratio (12-20); Bilirubin,Total 0.3 mg/dL (0.3-1.2); Blood Urea Nitrogen 37 mg/dL (9-23); Calcium 8.7 mg/dL (8.3-10.6); Calcium (Corrected) 9.3 mg/dL (8.5-10.1); Carbon Dioxide 24.1 mMol/L (20.0-31.0); Chloride 103 mMol/L (98-107); Creatinine (Component) 1.5 mg/dL (0.6-1.3); Estimated Creatinine Clearance 28.6 mL/min (>60); Globulin 2.9 gm/dL (2.3-3.5); Glucose 206 mg/dL (74-106); Magnesium 2.5 mg/dL (1.6-2.6); Osmolality,Calculated 290 (275-295); Potassium 3.2 mMol/L (3.4-5.1); Sodium 138 mMol/L (136-145); Total Protein 6.1 gm/dL (5.7-8.2); eGFR 35 See Note
[2024-03-26 23:03] LABS: Troponin I 0.084 ng/mL (0.0-0.045)
--- NOTE | 2024-03-26 23:09 | PC.NURSE ---
Troponin level 0.084, Dr. Danial Juarez was made aware. No new orders obtained.
[2024-03-26] MEDS: levETIRAcetam INJ 100 MG/ML VIAL 5ML 1000 MG IVP (23:26)
[2024-03-27] VITALS (12 sets, daily range): BP systolic 69–139; BP diastolic 34–60; PULSE 58–91; RESP 15–100; TEMP 36.1–36.3; O2SAT 96–100; BMI 24.3
--- NOTE | 2024-03-27 | XR_ITS ---
Examinations: MRI Brain without intravenous contrast. MRA brain without intravenous contrast. MRA carotids without intravenous contrast 3-D vascular reconstructions Date and time of exam: March 27, 2024 0827 hours INDICATIONS: Stroke alert March 26, 2024, onset focal neurologic deficit, change in mental status, altered mental status lethargy vomiting Technique: Multiple axial and sagittal images of the brain have been obtained MRA brain carotid images without contrast obtained, including 3-D postprocessing, vascular maximum intensity projection images Findings: Sellaturcica is not enlarged. The optic chiasm and infundibular stalk are not remarkable. Prepontine and interpeduncular cisterns are not enlarged. No localized enlargement of the medulla or jarad. Fourth ventricle and cerebellar tonsils normal in position. Subacute hemorrhage is not seen. Fourth ventricle is midline. Mass in the cerebellopontine angle region is not evident. 7th and 8th nerve complexes exhibits symmetry. Globes are symmetrical with no retro-orbital mass. Increased white matter signal prominent Diffusion-weighted images demonstrate no focus of restricted diffusion Mass-effect upon the ventricular system is not identified. MRA carotid images no carotid significant stenoses. MRA brain images no large vessel occlusions Impression: Negative for acute hemorrhage mass effect or midline shift No acute infarct Prominent chronic microvascular white matter change No significant carotid stenoses No cerebral large vessel occlusions or thrombus
--- NOTE | 2024-03-27 01:05 | PC.NURSE ---
Troponin level 0.084, Dr. Danial Juarez was made aware. No new orders obtained.
--- NOTE | 2024-03-27 05:03 | RESP.EEG ---
EEG has been recorded and is ready for MD interpretation
[2024-03-27 05:49] LABS: Basophils % (Auto) 0 % (0-2.5); Eosinophils # (Auto) 0.2 Thou/mm3 (0.0-0.5); Eosinophils % (Auto) 1 % (0-10); Hematocrit 29.5 % (36.0-46.0); Hemoglobin 9.3 g/dL (12.0-16.0); Immature Granulocytes % (Auto) 2 % (0-0); Immature Granulocytes Auto 0.24 Thou/mm3 (0.00-0.00); Lymphocytes % (Auto) 25 % (10-50); Mean Corpuscular HGB Conc 31.5 g/dl (31.0-37.0); Mean Corpuscular Hemoglobin 28.3 pg (25.0-35.0); Mean Corpuscular Volume 90 fL (80-100); Monocytes % (Auto) 9 % (0-12); Neutrophils # (Auto) 7.6 Thou/mm3 (1.8-7.7); Neutrophils % (Auto) 63 % (37-80); Nucleated Red Blood Cell % 0 /100 WBC (0); Platelet Count 318 Thou/mm3 (140-440); RDW Standard Deviation 53.1 fL (36.4-46.3); Red Blood Count 3.29 Miln/mm3 (4.00-5.20)
[2024-03-27] MEDS: metroNIDAZOLE 250 MG TABLET 500 MG PO ×2 (06:09→14:45)
[2024-03-27] MEDS: LOPERAMIDE 2 MG CAPSULE 10 MG PO ×3 (06:09→22:00)
[2024-03-27] MEDS: LEVOTHYROXINE SODIUM 112 MCG, LEVOTHYROXINE SODIUM 25 MCG 137 MCG PO (06:09)
[2024-03-27 06:55] LABS: Alanine Aminotransferase 10 U/L (10-49); Albumin, Serum 3.1 gm/dL (3.4-4.8); Albumin/Globulin Ratio 1.1 (1.2-2.2); Alkaline Phosphatase 242 U/L (46-116); Anion Gap 7 (7-16); Aspartate Amino Transferase 12 U/L (0-34); BUN/Creatinine Ratio 27 Ratio (12-20); Bilirubin,Total 0.3 mg/dL (0.3-1.2); Blood Urea Nitrogen 32 mg/dL (9-23); Calcium 8.6 mg/dL (8.3-10.6); Calcium (Corrected) 9.3 mg/dL (8.5-10.1); Carbon Dioxide 26.9 mMol/L (20.0-31.0); Chloride 104 mMol/L (98-107); Creatinine (Component) 1.2 mg/dL (0.6-1.3); Estimated Creatinine Clearance 35.6 mL/min (>60); Globulin 2.8 gm/dL (2.3-3.5); Glucose 78 mg/dL (74-106); Magnesium 2.3 mg/dL (1.6-2.6); Osmolality,Calculated 281 (275-295); Phosphorous 2.5 mg/dL (2.4-5.1); Potassium 3.3 mMol/L (3.4-5.1); Sodium 138 mMol/L (136-145); Total Protein 5.9 gm/dL (5.7-8.2); eGFR 46 See Note
[2024-03-27 06:56] LABS: Troponin I 0.083 ng/mL (0.0-0.045)
--- NOTE | 2024-03-27 07:00 | XR_ITS ---
Examination: CT chest with intravenous contrast CT abdomen with intravenous contrast CT pelvis with intravenous contrast 2-D coronal and sagittal reconstructions Time of exam: March 27, 2024 1145 hours INDICATIONS: History colostomy colostomy malfunction CT abdomen pelvis March 21, 2024 soft tissue mass anterior abdominal wall, suspicious for abscess right lower abdomen CTDI: vol (mGy) : 8.74 DLP: (mGycm): 679 Technique: Multiple axial images of the chest, abdomen and pelvis with intravenous contrast, 3.0 mm slice thickness. Images obtained post intravenous injection Isovue 370 60 cc. 2-D sagittal and coronal reconstructions. Low dose protocols were performed. One or more of the following dose reduction techniques were used; automated exposure control, adjustment of the mA and/or KV according to patient size, use of iterative reconstruction technique. Findings: No thoracic aortic aneurysmal dilatation Main pulmonary artery segment 33 mm No pulmonary artery emboli this non-CTA study Significant calcification left anterior descending coronary artery 3 mm pulmonary nodule left upper lobe image 78 No pneumonia or pulmonary edema No visualized liver or splenic lesion Absent gallbladder Common bile duct 12 mm no stones No pancreatic splenic or adrenal mass No hydronephrosis Aorta normal size Right ileostomy 23 x 24 mm fluid containing mass in the anterior pelvic subcutaneous fatty tissue, which may be contiguous with small bowel, axial image 268, protruding through the pelvic wall No intra-abdominal abscess is depicted No bowel obstruction seen IMPRESSION: 3 mm pulmonary nodule left upper lobe No pneumonia or pulmonary edema or pleural disease Recommend hepatobiliary sonography to assess enlarged common bile duct 24 x 23 mm fluid containing mass in the anterior pelvic wall subcutaneous fatty tissue which may be contiguous with small bowel in the pelvis, axial image 268, clinical correlation advised
--- NOTE | 2024-03-27 08:54 | PC.SS ---
Update: Plan is for ileostomy reversal procedure. Once medically clear patient to d/c home with home health.
--- NOTE | 2024-03-27 10:52 | PC.SS ---
Update: MRI pending, tele neuro to consult due to possible stroke.
[2024-03-27] MEDS: POTASSIUM CHLORIDE 10% 20 MEQ/15 ML UDC 40 MEQ PO (11:22)
[2024-03-27] MEDS: METOPROLOL TARTRATE 25 MG TABLET PO (11:23)
[2024-03-27] MEDS: levETIRAcetam LIQD 500 MG/5 ML UDC PO ×2 (11:23→20:37)
[2024-03-27] MEDS: cefTRIAXone/D5w 1gm IV premix 50 ML IV (11:23)
[2024-03-27] MEDS: POTASSIUM CHLORIDE 20 mEq TABCR 40 MEQ PO (11:23)
[2024-03-27] MEDS: HEPARIN SOD INJ 5000 UNIT/ML VIAL SC ×2 (11:24→20:37)
--- NOTE | 2024-03-27 13:05 | ESPR_ITS ---
<Statement entered by Alyson Vang MD - 03/28/24 07:33> Senior Resident Attestation: I supervised/discussed management plan with resident physician Dr. Shirley, and was involved in the care of this patient. I personally saw and examined the patient and discussed the assessment and plan with the entire medicine team, including my attending. I agree with the assessment and plan as documented. Patient's care was discussed with attending physician, Dr. Maru Vang MD PGY-3 Documentation for date of: 03/27/24 Subjective Subjective Interval history: Patient seen at bedside. Patient seen after MRI, pending MRI results. Patient denies any dizziness, has no left arm weakness. Patient had a rapid response called yesterday night for shakiness and blank stare Patient was given loading dose Keppra and started on Keppra twice daily Dialysis catheter will be removed today Pending EEG and CT abdomen pelvis with contrast Will continue to monitor patient. Exam Vital Signs Temp Pulse Resp BP Pulse Ox O2 Del Method O2 Flow Rate 97.1 F 64 17 128/57 L 100 Room Air 1 03/27/24 12:00 03/27/24 12:00 03/27/24 12:00 03/27/24 12:00 03/27/24 12:00 03/27/24 12:00 03/26/24 04:00 Narrative Exam GENERAL: AAOX3 NEURO: BIAZZI NITRATOR OPERATOR grossly intact, moves extremities x4 HEENT: Dry mucosa. Eyes open, symmetrical, & clear CARDIO: No chest pain on palpation. Heart RRR, no obvious murmurs PULM: No noted coughing/dyspnea. Lungs CTA B/L, GI: Abdomen soft, nondistended, no pain on palpation. Colostomy area seen, mild cellulitis seen in surrounding area. BSx4 URO/IT SOLUTIONS ARCHITECT:: No further abnormalities noted. SKIN/MSK/EXT: No wounds/rashes/edema/amputations, no pain on palpation. Pedal pulses present B/L Objective Labs 03/30/24 04:15 03/30/24 04:15 Labs: Laboratory Results - last 24 hr 03/26/24 03/27/24 22:20 04:37 WBC 14.1 H 12.0 H RBC 3.44 L 3.29 L Hgb 9.9 L 9.3 L Hct 31.0 L 29.5 L MCV 90 90 MCH 28.8 28.3 MCHC 31.9 31.5 RDW Std Deviation 52.4 H 53.1 H Plt Count 317 318 Neut % (Auto) 63 63 Lymph % (Auto) 26 25 Bibb % (Auto) 9 9 Eos % (Auto) 1 1 Baso % (Auto) 0 0 Neut # (Auto) 8.9 H 7.6 Lymph # (Auto) 3.6 3.0 Bibb # (Auto) 1.2 H 1.0 H Eos # (Auto) 0.1 0.2 Baso # (Auto) 0.0 0.0 Immature Gran # (Auto) 0.27 H 0.24 H Absolute Nucleated RBC 0.00 0.00 Immature Gran % 2 H 2 H Nucleated RBC % 0 0 PT 15.6 H INR 1.5 H APTT 31.9 Sodium 138 138 Potassium 3.2 L 3.3 L Chloride 103 104 Carbon Dioxide 24.1 26.9 Anion Gap 11 7 BUN 37 H 32 H Creatinine 1.5 H 1.2 Estim Creat Clear Calc 28.6 L 35.6 L eGFR 35 L 46 L BUN/Creatinine Ratio 25 H 27 H Glucose 206 H D 78 D Calculated Osmolality 290 281 Calcium 8.7 8.6 Corrected Calcium 9.3 9.3 Phosphorus 2.5 Magnesium 2.5 2.3 Total Bilirubin 0.3 0.3 AST 24 12 ALT 21 10 Alkaline Phosphatase 260 H D 242 H Ammonia 29 Troponin I 0.084 H* 0.083 H* Total Protein 6.1 5.9 Albumin 3.2 L 3.1 L Globulin 2.9 2.8 Albumin/Globulin Ratio 1.1 L 1.1 L ABG Interpretation ABG results: 03/21/24 05:40 ABG pH 7.35 ABG pCO2 41 ABG pO2 121 H ABG HCO3 23 ABG O2 Saturation 99 H ABG Base Excess -3 Quality Measures Quality Measures VTE prophylaxis and sepsis Current suspected stage: ruled out Possible source: skin/soft tissue Blood cultures ordered: yes Antibiotic ordered: Yes Advance care planning discussed with:: patient Assessment & Plan Assessment Current Active Medications: Generic Name Dose Route Start Last Admin Trade Name Freq PRN Reason Stop Dose Admin Acetaminophen 650 mg 03/21/24 05:19 Acetaminophen 325 Mg Tablet PO 04/20/24 05:18 Q6H PRN Fever >101.5 Albuterol/Ipratropium 3 ml 03/21/24 15:51 Albuterol/Ipratropium (Duoneb) Rt Tia 3 Ml Nebu INH 04/20/24 18:59 Q4HRRT PRN Shortness of breath Donepezil HCl 10 mg 03/21/24 21:00 03/26/24 20:42 Donepezil Hcl 5 Mg Tablet PO 04/20/24 20:59 10 mg HS ASHISH Administration Heparin Sodium (Porcine) 3,700 unit 03/21/24 17:43 03/21/24 20:09 Heparin Sod Inj 1000 Unit/Ml Vial 10 Ml INDWELLCAT 04/04/24 17:42 3,700 unit PRN PRN Administration DIALYSIS Heparin Sodium (Porcine) 5,000 unit 03/22/24 17:30 03/27/24 11:24 Heparin Sod Inj 5000 Unit/Ml Vial SC 04/05/24 17:29 5,000 unit Q12HR ASHISH Administration Hydralazine HCl 10 mg 03/21/24 15:45 Hydralazine Hcl 10 Mg Tablet PO 04/20/24 17:59 Q6HR PRN SBP>160 Albumin Human 25 gm in 100 mls @ 100 mls/min 03/21/24 10:54 Albuminar-25 Ivpb IV PRN PRN DIALYSIS Ceftriaxone Sodium/Dextrose 50 mls @ 100 mls/hr 03/22/24 18:52 03/27/24 11:23 Rocephin/D5w 1gm Iv Premix IV 03/29/24 18:51 100 mls/hr QDAY ASHISH Administration Levetiracetam 500 mg 03/27/24 09:00 03/27/24 11:23 Levetiracetam Liqd 500 Mg/5 Ml Udc PO 04/26/24 08:59 500 mg BID ASHISH Administration Levothyroxine Sodium 112 mcg/ 137 mcg 03/21/24 07:30 03/27/24 06:09 Levothyroxine Sodium 25 mcg PO 04/20/24 07:29 137 mcg ACBR ASHISH Administration Loperamide HCl 10 mg 03/26/24 14:00 03/27/24 06:09 Loperamide 2 Mg Capsule PO 04/02/24 13:59 10 mg TID ASHISH Administration Memantine 10 mg 03/21/24 21:00 03/26/24 20:42 Memantine Hcl 5 Mg Tablet PO 04/20/24 20:59 10 mg BID ASHISH Administration Metoprolol Tartrate 25 mg 03/21/24 21:00 03/27/24 11:23 Metoprolol Tartrate 25 Mg Tablet PO 04/20/24 20:59 25 mg BID ASHISH Administration Metronidazole 500 mg 03/26/24 14:00 03/27/24 06:09 Metronidazole 250 Mg Tablet PO 03/30/24 08:59 500 mg TID ASHISH Administration Ondansetron HCl 4 mg 03/21/24 06:08 Ondansetron Inj 2 Mg/Ml Inj 2 Ml IV 04/20/24 06:07 Q6H PRN NAUSEA OR VOMITING Protocol Sodium Chloride 3 ml 03/21/24 08:25 Sodium Chloride Rt Tia 0.9% 3 Ml Nebu INH 04/20/24 08:24 PRN PRN SOLN Plan Summary: The patient is a 78-year-old female with a past medical history of hypothyroidism, hypertension, JACKIE, asthma, depression, dementia, recurrent UTI, and is status post hemicolectomy with ileostomy admitted for acute uremic encephalopathy, stage III acute kidney injury, sepsis secondary to UTI versus intra-abdominal abscess. #?New onset seizures Patient had a rapid response called on 03/26 night for shakiness and blank staring. Had left-sided weakness which has resolved. Teleneuro was consulted, stroke alert was called. CT head and CTA negative for any acute findings. Plan -Was given Keppra loading dose and started on Keppra twice daily 500 mg -Ordered MRI brain stroke protocol -Ordered EEG -Seizure precautions -Hold memantine -Consulted teleneuro, appreciate recommendations #Acute encephalopathy uremic vs infections #Acute kidney injury #Increased ileostomy output Decreased p.o. intake in the last 2 to 3 days with nausea and vomiting and presence of ileostomy, thus likely prerenal. However, given extensive elevation in creatinine and drop in GFR other etiologies cannot be excluded. Initial creatinine 9.5 (BL 1.0), BUN 121. Will have received total of 3.5 L of IVF. On admission, patient was noted to have hyperkalemia, increased BUN and creatinine of up to 9.5 as well as hyperphosphatemia. UA was positive for UTI, CT abdomen pelvis showed some suspicion for intra-abdominal abscess. The patient was given 3.5 L of NS and 1 dose of ceftriaxone and admitted for management of sepsis secondary to UTI versus intra-abdominal abscess. On review today, patient's potassium was found to be 6.6 and she was started on a hyperkalemic protocol-5 units of insulin, D50 and given 800 mg of sevelamer. Clinically, she no longer has episodes of vomiting or nausea and mentation is back to baseline. Nephrology was consulted for urgent hemodialysis. BUN and creatinine still showing significant improvement, creatinine is 1.2 today, GFR 46 Patient having increased output from ileostomy, Pending CT with contrast of abdomen prior to possible ileostomy reversal by general surgeon Dr. Flynn. Plan: -Loperamide 10mg TID -Dialysis catheter will be removed today -Continue to monitor CMP -Avoid nephrotoxins -Renally dose medications -Consulted general surgery appreciate recommendations -Consulted nephrology, appreciate recommendations #Sepsis, secondary to #E.Coli UTI #Possible intra-abdominal abscess #History of recurrent UTI CT A/P prelim report shows possible intra-abdominal abscess. Patient reports dysuria and cloudy urine, noted to have recurrent UTIs. Most recent urine cultures positive for E. coli, pansensitive. WBC on admission-20.9 Additionally, patient is on IV Zosyn for sepsis management. General surgeon Dr. Flynn consulted, recommends to continue wound care Patient was evaluated by the general surgeon Dr. Flynn who is considering takedown of the ileostomy following a CT scan with contrast which will be done when renal function is much better. For this reason, we will leave the TDC in for possible dialysis postcontrast CT. CT to be done on Wednesday Otherwise, patient is still on ceftriaxone and metronidazole. Plan: -Continue IV Ceftriaxone and metronidazole (Day 6 today) -Possible contrast CT abdomen on Wednesday ?General Surgeon Dr. Flynn consulted, following recommendations -Referred to wound care -Continue to monitor CBC #Electrolyte imbalances #Hyponatremia #Hyperkalemia-resolved #Hypochloremia-resolved #Hypocalcemia-resolved #Hyperphosphatemia-resolved #Hypomagnesemia-resolved -Hyperkalemic protocol initiated with 5 units of insulin, D50 and sevelamer as well as albuterol on admission. -Urgent dialysis indicated on admission, patient had temporary catheter placement. -Holding dialysis for now as renal function is improving Plan: ? Nephrology consulted, following recommendations -Dialysis catheter will be removed today ? Continue to monitor CMP #History of hypothyroidism Plan ? Resume home medication levothyroxine 125 mcg before breakfast #History of hypertension Plan ? Resume home med- Metoprolol tartrate 25mg BID -Hydralazine 10mg Q6HR PRN for SBP >160 #History of depression #History of dementia #History of bipolar #History of anxiety Plan ? Resume home medications donepezil and memantine -Once clinical status improved, will consider resuming nortriptyline #History of obstructive sleep apnea Plan ? CPAP at bedtime as needed #History of asthma Plan ? DuoNebs every 4 hours breathing treatment as needed DVT prophylaxis: Subcutaneous heparin GI prophylaxis: Not indicated Diet: Dysphagia 1?pur?ed Lines: Peripheral IV Code status: Full code Case discussed with Attending Dr. Mahoney and Dr. Vang PGY3. Darian Shirley PGY1 Attending Provider Attestation/Addendum I have discussed and was present for the essential components of the history, physical examination, diagnosis, and treatment plan with the resident. I agree with the patient's care as documented by the resident and amended herein by me. Casey Mahoney DO. Although this document has been carefully reviewed, there may still be some phonetic and other typographical errors. These errors are purely grammatical due to imperfections in the software program and should not be construed in any way to compromise the substance of the patient's medical care during this visit.
--- NOTE | 2024-03-27 13:12 | ESPR_ITS ---
Documentation for date of: 03/27/24 Subjective Subjective Interval history: 78 y/o F with PMHx significant for hypothyroidism, hypertension, JACKIE, asthma, depression, dementia, recurrent UTI, and is status post hemicolectomy with ileostomy presents with altered mental status and nausea and vomiting. Patient initially presented to ED with altered mentation and was not able to provide history. Subsequently given 2.5 L of fluids per sepsis protocol and mentation slowly improved. Upon evaluation, patient endorsed 2 to 3 days of nausea and vomiting along with decreased p.o. intake. Also endorses abdominal pain at ileostomy site, decreased ileostomy output, as well as dysuria and cloudy urine but denies fever or chills. Otherwise also denies shortness of breath or chest discomfort. Of note, patient recently discharged on 02/15 for ileostomy leakage/malfunction. CT head unremarkable. CT A/P showed Soft tissue mass in the anterior abdominal wall 2.8 x 2.2 cm and aggregate of small bowel versus abscess in the right lower abdomen poorly defined, at least 4 cm in dimension. Patient recieved IVF, magnesisum, zosyn and rocephin in ED. Labs showed sodium 125, potassium 6.6, BUN 134, Patrol Police Sergeant 9.3, eGFR 4, Corrected Ca 8.3, phos 10.7, Mg 1.1. Patient has no known history CKD. On exam patient was lethargic but responsive, followed commands, A&Ox3. Appears euvolemic. Nephrology consulted for acute renal failure, plan for emergent dialysis. 03/22: Patient seen and examined in bed. Patient remains lethargic. Signs of leaking around ileostomy bag. Labs significantly improved after dialysis session yesterday. Sodium 129, potassium 4.1, bicarb 25.4, BUN 62, creatinine 2.6, eGFR 12. Plan for dialysis today. Prelim urine culture positive for gram- negative rods. Patient currently on Zosyn. 03/23: Patient seen and examined in bed. Patient is somewhat lethargic but improved from before. Sodium 135, potassium 3.7, bicarb 28.7, BUN 35, creatinine 2.2, eGFR 22. Will give 1 L normal saline at 70 mL/h and 40 mEq potassium p.o. No plans for dialysis today. 03/24/2024 patient currently seen in telemetry. More alert and awake. Patient has more than a liter of urine output although 1800 colostomy losses. Blood pressure 144/62, heart rate 83. WBC 12.8, hemoglobin 9.1, platelets 329. Sodium 139, potassium 4.2, BUN 43, creatinine 2.1, phosphorus 2.2, magnesium 1.7 Primary team wanted to do CT abdomen with contrast. Dr. Flynn suggested can hold CT with contrast for 1 to 2 days. 1 L IV fluids given. Will monitor renal function closely. No need for dialysis today. However to for the weekend will leave Vas-Cath. 03/27/2024 patient currently seen in medical floor. Resting comfortably. Still having significant colostomy losses. CT abdomen with contrast ordered for tomorrow. Labs, medications reviewed. Patient feeling much better. Review of Systems Review of Systems Narrative Review of Systems: CONSTITUTIONAL: Patient denies any fever, chills. Patient feeling much better HEENT: Denies any visual disturbances or hearing problems. CARDIOVASCULAR: Patient denies any chest pain, shortness of breath, swelling in the lower extremities. PULMONARY: Patient denies any shortness of breath, cough. GASTROINTESTINAL: patient complaining of discomfort around the colostomy site. Leakage noted. GENITOURINARY: Patient denies any urinary symptoms of burning or frequency or hematuria, denies any form in the urine. SKIN: Denies any rash. MUSCULOSKELETAL: Gait imbalance NEUROLOGICAL: Denies any neurological problems of strokes, seizures or confusion. Denies any memory problems. Exam Vital Signs Temp Pulse Resp BP Pulse Ox O2 Del Method O2 Flow Rate 36.2 C 64 17 128/57 L 100 Room Air 1 03/27/24 12:00 03/27/24 12:00 03/27/24 12:00 03/27/24 12:00 03/27/24 12:03/27/24 12:00 03/26/24 04:00 Narrative Exam GENERAL APPEARANCE: Fragile lady currently seen in medical floor NECK: Neck supple, no JVD or bruit CARDIOVASCULAR: Heart regular, no murmurs LUNGS/CHEST: Chest clear to auscultation. No rales, rhonchi, wheezing ABDOMEN: Soft, bowel sounds present. She has colostomy and leakage around the colostomy with erythema noted. Significant amount of copious liquid stool noted. EXTREMITIES: No edema, clubbing or cyanosis. SKIN: Redness around colostomy site MUSCULOSKELETAL: In bed NEUROLOGICAL : No neurological deficits. Alert and awake Objective Labs 03/28/24 07:38 03/28/24 07:38 Labs: Laboratory Results - last 24 hr 03/26/24 03/27/24 22:20 04:37 WBC 14.1 H 12.0 H RBC 3.44 L 3.29 L Hgb 9.9 L 9.3 L Hct 31.0 L 29.5 L MCV 90 90 MCH 28.8 28.3 MCHC 31.9 31.5 RDW Std Deviation 52.4 H 53.1 H Plt Count 317 318 Neut % (Auto) 63 63 Lymph % (Auto) 26 25 Duchesne % (Auto) 9 9 Eos % (Auto) 1 1 Baso % (Auto) 0 0 Neut # (Auto) 8.9 H 7.6 Lymph # (Auto) 3.6 3.0 Duchesne # (Auto) 1.2 H 1.0 H Eos # (Auto) 0.1 0.2 Baso # (Auto) 0.0 0.0 Immature Gran # (Auto) 0.27 H 0.24 H Absolute Nucleated RBC 0.00 0.00 Immature Gran % 2 H 2 H Nucleated RBC % 0 0 PT 15.6 H INR 1.5 H APTT 31.9 Sodium 138 138 Potassium 3.2 L 3.3 L Chloride 103 104 Carbon Dioxide 24.1 26.9 Anion Gap 11 7 BUN 37 H 32 H Creatinine 1.5 H 1.2 Estim Creat Clear Calc 28.6 L 35.6 L eGFR 35 L 46 L BUN/Creatinine Ratio 25 H 27 H Glucose 206 H D 78 D Calculated Osmolality 290 281 Calcium 8.7 8.6 Corrected Calcium 9.3 9.3 Phosphorus 2.5 Magnesium 2.5 2.3 Total Bilirubin 0.3 0.3 AST 24 12 ALT 21 10 Alkaline Phosphatase 260 H D 242 H Ammonia 29 Troponin I 0.084 H* 0.083 H* Total Protein 6.1 5.9 Albumin 3.2 L 3.1 L Globulin 2.9 2.8 Albumin/Globulin Ratio 1.1 L 1.1 L ABG Interpretation ABG results: 03/21/24 05:40 ABG pH 7.35 ABG pCO2 41 ABG pO2 121 H ABG HCO3 23 ABG O2 Saturation 99 H ABG Base Excess -3 Assessment & Plan Additional Assessment & Plan Additional Plan: 78 y/o F with PMHx significant for hypothyroidism, hypertension, JACKIE, asthma, depression, dementia, recurrent UTI, and is status post hemicolectomy with ileostomy admitted for acute uremic encephalopathy, stage III acute kidney injury, sepsis secondary to UTI versus intra-abdominal abscess. #Acute kidney injury-suspect patient in ischemic ATN Patient received 2 dialysis treatments and started to make good urine. Held dialysis. Creatinine improved.-s/p CT abdomen with IV contrast . Continue with oral hydration. Dialysis catheter removed. -Avoid nephrotoxins -Renally dose medications -daily labs #Sepsis, secondary to GI/UTI-on antibiotics plan of care discussed with primary team, Dr. Flynn #UTI, gram-negative rods #Electrolyte imbalances #Hypothyroidism #Hypertension #Depression #Dementia Management as per primary team. Quality - progress note Quality Measures Quality Measures: VTE prophylaxis Reason for Continued Stay Reason for Continued Stay: further monitoring
--- NOTE | 2024-03-27 14:20 | PC.SS ---
Update: Patient experienced seizure last night, CT has been ordered. Surgical procedure scheduled for later this week.
--- NOTE | 2024-03-27 15:18 | XR_ITS ---
Examination: IR venous access removal temporary dialysis catheter Exam date and time: March 27, 2024 1518 hours INDICATIONS: No longer needed for dialysis catheter TECHNIQUE AND FINDINGS: Informed consent provided. Timeout performed. Skin prepped over the entrance site of the temporary dialysis catheter sterile drape applied hand hygiene Successful removal of the temporary dialysis catheter Estimated blood loss 0 cc IMPRESSION: Successful IR venous access removal temporary dialysis catheter
[2024-03-27] MEDS: RINGERS LACTATED 1000 ML 1,000 ML 999 ML IV (16:40)
--- NOTE | 2024-03-27 16:41 | XR_ITS ---
Examination: AP chest single view Technique portable AP sitting chest single view Exam date and time: March 27, 2024 1716 hours Comparison March 21, 2024 INDICATIONS: Onset shortness of breath today. FINDINGS: Normal heart size No interval pneumonia or pulmonary edema Moderate osteopenia IMPRESSION: No interval pneumonia or pulmonary edema
--- NOTE | 2024-03-27 17:14 | EVENTNT_ITS ---
Documentation for date of: 03/27/24 Event Note Event Note: Patient had a rapid response called around 1637 due to blood pressure 73/37 on patient's right arm, patient alert oriented x 3, bilateral lung sounds heard, patient is status post removal of temporary IJ dialysis catheter, later blood pressure checked on the left arm showed a mean arterial pressure of 100. Patient will be given 1 L bolus of LR, ordered CBC, CMP, lactate and chest x- ray. Chest x-ray reviewed, showed no abnormal findings, lactate elevated at 3.0, will give another liter bolus and repeat lactate in a.m. patient's MRI today was insignificant for any stroke or any lesion. CT abdomen pelvis showed 24 x 23 fl uid containing mass in the anterior pelvic wall subcutaneous fatty tissue which may be contiguous with small bowel in the pelvis, finding discussed with Dr. Flynn, the finding is stable compared to the CT from last week, patient will be evaluated by surgery in a.m. patient's antibiotic coverage changed from ceftriaxone and Flagyl to Zosyn. Case discussed with Attending Dr. Mahoney. Darian Shirley PGY1
[2024-03-27 17:41] LABS: Basophils % (Auto) 0 % (0-2.5); Eosinophils # (Auto) 0.2 Thou/mm3 (0.0-0.5); Eosinophils % (Auto) 2 % (0-10); Hematocrit 29.4 % (36.0-46.0); Hemoglobin 9.4 g/dL (12.0-16.0); Immature Granulocytes % (Auto) 2 % (0-0); Immature Granulocytes Auto 0.22 Thou/mm3 (0.00-0.00); Lymphocytes # (Auto) 2.1 Thou/mm3 (1.0-4.8); Lymphocytes % (Auto) 17 % (10-50); Mean Corpuscular Hemoglobin 28.6 pg (25.0-35.0); Mean Corpuscular Volume 89 fL (80-100); Monocytes # (Auto) 0.9 Thou/mm3 (0.0-0.8); Monocytes % (Auto) 7 % (0-12); Neutrophils # (Auto) 8.9 Thou/mm3 (1.8-7.7); Neutrophils % (Auto) 72 % (37-80); Nucleated Red Blood Cell % 0 /100 WBC (0); Platelet Count 279 Thou/mm3 (140-440); RDW Standard Deviation 52.3 fL (36.4-46.3); Red Blood Count 3.29 Miln/mm3 (4.00-5.20); White Blood Count 12.3 Thou/mm3 (3.6-11.0)
[2024-03-27 17:45] LABS: Alanine Aminotransferase 16 U/L (10-49); Albumin, Serum 2.9 gm/dL (3.4-4.8); Alkaline Phosphatase 228 U/L (46-116); Anion Gap 8 (7-16); Aspartate Amino Transferase 22 U/L (0-34); BUN/Creatinine Ratio 24 Ratio (12-20); Bilirubin,Total 0.3 mg/dL (0.3-1.2); Blood Urea Nitrogen 34 mg/dL (9-23); Calcium 8.3 mg/dL (8.3-10.6); Calcium (Corrected) 9.2 mg/dL (8.5-10.1); Carbon Dioxide 25.4 mMol/L (20.0-31.0); Chloride 105 mMol/L (98-107); Creatinine (Component) 1.4 mg/dL (0.6-1.3); Estimated Creatinine Clearance 30.5 mL/min (>60); Globulin 2.8 gm/dL (2.3-3.5); Glucose 139 mg/dL (74-106); Osmolality,Calculated 285 (275-295); Sodium 138 mMol/L (136-145); Total Protein 5.7 gm/dL (5.7-8.2); eGFR 38 See Note
--- NOTE | 2024-03-27 18:24 | PC.NURSE ---
1637- bp 73/37. patient slightly lethargic, rapid response was called, lr 1 liter bulos was ordered-
[2024-03-27] MEDS: PIPER/TAZO 3.375 GM 3.375 GM/50 ML BAG IV (18:34)
[2024-03-27] MEDS: SODIUM CHLORIDE 0.9% 1000 ML 1,000 ML 999 ML IV (19:21)
[2024-03-27 20:16] LABS: Reflex Lactate? Y
[2024-03-27] MEDS: DONEPEZIL HCL 5 MG TABLET 10 MG PO (20:37)
[2024-03-27 21:16] LABS: Lactic Acid, 3 HR 5.2 mMol/L (0.4-2.0)
[2024-03-28] VITALS (11 sets, daily range): BP systolic 109–153; BP diastolic 47–80; PULSE 73–106; RESP 15–99; TEMP 36.1–36.5; O2SAT 94–99
[2024-03-28 01:28] LABS: Lactate (Lactic Acid) 3.5 mMol/L (0.4-2.0)
--- NOTE | 2024-03-28 03:53 | EVENTNT_ITS ---
<Statement entered by Ayaz Borja MD - 03/28/24 09:19> I was present for the essential components of the history, physical examination, diagnosis, and treatment plan with the resident. I have reviewed the documentation, discussed the case with the resident and agree with the patient's care as documented by the resident. Ayaz Borja MD Documentation for date of: 03/28/24 Event Note Event Note: Rapid response called at approximately 3:40 AM for seizure-like activity. Upon arrival to room, patient was not responsive, rhythmic movement in left upper extremity that increased to tonic-clonic movements. Given 2 mg IVP of ativan and seizure activity eventually subsided but patient in post-ictal state, becoming responsive to painful stimuli. She was then given a loading dose of Keppra 1000 mg. Will change Keppra 500 PO BID to 750 IV BID, added ativan 2 mg IVP PRN q15m, and placed seizure and aspiration precautions. Obtained Keppra levels for AM labs.
[2024-03-28] MEDS: LORazepam 2 MG/ML VIAL IVP (03:59)
[2024-03-28] MEDS: levETIRAcetam INJ 100 MG/ML VIAL 5ML 1000 MG IVP ×2 (03:59→20:50)
--- NOTE | 2024-03-28 04:05 | PC.NURSE ---
RAPID RESPONSE CALLED 03/28/24 AT 0341, PATIENT WAS HAVING A BLANK STARE AND BILATERAL ARMS JERKING, SEIZURE LIKE SYMPTOMS, PATIENT WAS NOT RESPONDING. PATIENT WAS GIVEN 1 G OF KEPPRA IV AND 2 MG OF ATIVAN IV. VITAL SIGNS AT END OF RAPID RESPONSE ARE T:97.7, BP: 118/59, HR 88 RR 20 AND O2 SATURATIONS 96% 3LNC.
[2024-03-28 04:25] LABS: Reflex Lactate? Y
[2024-03-28] MEDS: PIPER/TAZO 3.375 GM 3.375 GM/50 ML BAG IV ×3 (05:49→21:02)
--- NOTE | 2024-03-28 07:43 | XR_ITS ---
Examination: Abdomen sonogram, Limited Date and time of exam: March 28, 2024 0820 hours INDICATIONS: Abdominal pain this week, enlarged common bile duct on CT abdomen pelvis March 27, 2024, status post cholecystectomy Technique: Real-time mccoy scale transabdominal sonographic images of the upper abdomen obtained. Findings: Absent gallbladder Common bile duct 0.8 cm no stones Pancreatic head 2.6 cm Liver 14.4 cm fatty infiltration no focal liver lesions Normal hepatopedal portal venous flow Patent IVC IMPRESSION: Common bile duct 0.8 cm no stones
--- NOTE | 2024-03-28 07:45 | PC.NURSE ---
Dr. Rahman at bedside speaking with patient.
[2024-03-28 07:47] LABS: Lactate (Lactic Acid) 1.5 mMol/L (0.4-2.0)
[2024-03-28 07:52] LABS: Basophils % (Auto) 0 % (0-2.5); Eosinophils # (Auto) 0.9 Thou/mm3 (0.0-0.5); Eosinophils % (Auto) 6 % (0-10); Hematocrit 29.7 % (36.0-46.0); Hemoglobin 9.4 g/dL (12.0-16.0); Immature Granulocytes % (Auto) 1 % (0-0); Immature Granulocytes Auto 0.19 Thou/mm3 (0.00-0.00); Lymphocytes # (Auto) 2.9 Thou/mm3 (1.0-4.8); Lymphocytes % (Auto) 20 % (10-50); Mean Corpuscular HGB Conc 31.6 g/dl (31.0-37.0); Mean Corpuscular Hemoglobin 28.3 pg (25.0-35.0); Mean Corpuscular Volume 90 fL (80-100); Monocytes # (Auto) 0.8 Thou/mm3 (0.0-0.8); Monocytes % (Auto) 6 % (0-12); Neutrophils # (Auto) 9.3 Thou/mm3 (1.8-7.7); Neutrophils % (Auto) 66 % (37-80); Nucleated Red Blood Cell % 0 /100 WBC (0); Platelet Count 277 Thou/mm3 (140-440); RDW Standard Deviation 53.2 fL (36.4-46.3); Red Blood Count 3.32 Miln/mm3 (4.00-5.20); White Blood Count 14.2 Thou/mm3 (3.6-11.0)
[2024-03-28 08:21] LABS: Alanine Aminotransferase 14 U/L (10-49); Albumin/Globulin Ratio 1.1 (1.2-2.2); Alkaline Phosphatase 214 U/L (46-116); Anion Gap 6 (7-16); Aspartate Amino Transferase 16 U/L (0-34); BUN/Creatinine Ratio 23 Ratio (12-20); Bilirubin,Total 0.4 mg/dL (0.3-1.2); Blood Urea Nitrogen 30 mg/dL (9-23); Calcium 8.6 mg/dL (8.3-10.6); Calcium (Corrected) 9.4 mg/dL (8.5-10.1); Carbon Dioxide 26.3 mMol/L (20.0-31.0); Chloride 109 mMol/L (98-107); Creatinine (Component) 1.3 mg/dL (0.6-1.3); Estimated Creatinine Clearance 33.1 mL/min (>60); Globulin 2.8 gm/dL (2.3-3.5); Glucose 82 mg/dL (74-106); Magnesium 1.8 mg/dL (1.6-2.6); Osmolality,Calculated 286 (275-295); Potassium 4.2 mMol/L (3.4-5.1); Sodium 141 mMol/L (136-145); Total Protein 5.8 gm/dL (5.7-8.2); eGFR 42 See Note
--- NOTE | 2024-03-28 09:22 | PC.SS ---
Update: Due to seizure, tele neuro following. Dr. Flynn following for surgical procedure.
--- NOTE | 2024-03-28 09:28 | PD.RESPRO ---
Documentation for date of: 03/28/24 Subjective Subjective Interval history: 78 y/o F with PMHx significant for hypothyroidism, hypertension, JACKIE, asthma, depression, dementia, recurrent UTI, and is status post hemicolectomy with ileostomy presents with altered mental status and nausea and vomiting. Patient initially presented to ED with altered mentation and was not able to provide history. Subsequently given 2.5 L of fluids per sepsis protocol and mentation slowly improved. Upon evaluation, patient endorsed 2 to 3 days of nausea and vomiting along with decreased p.o. intake. Also endorses abdominal pain at ileostomy site, decreased ileostomy output, as well as dysuria and cloudy urine but denies fever or chills. Otherwise also denies shortness of breath or chest discomfort. Of note, patient recently discharged on 02/15 for ileostomy leakage/malfunction. CT head unremarkable. CT A/P showed Soft tissue mass in the anterior abdominal wall 2.8 x 2.2 cm and aggregate of small bowel versus abscess in the right lower abdomen poorly defined, at least 4 cm in dimension. Patient recieved IVF, magnesisum, zosyn and rocephin in ED. Labs showed sodium 125, potassium 6.6, BUN 134, Injection Mold Technician 9.3, eGFR 4, Corrected Ca 8.3, phos 10.7, Mg 1.1. Patient has no known history CKD. On exam patient was lethargic but responsive, followed commands, A&Ox3. Appears euvolemic. Nephrology consulted for acute renal failure, plan for emergent dialysis. 03/22: Patient seen and examined in bed. Patient remains lethargic. Signs of leaking around ileostomy bag. Labs significantly improved after dialysis session yesterday. Sodium 129, potassium 4.1, bicarb 25.4, BUN 62, creatinine 2.6, eGFR 12. Plan for dialysis today. Prelim urine culture positive for gram-negative rods. Patient currently on Zosyn. 03/23: Patient seen and examined in bed. Patient is somewhat lethargic but improved from before. Sodium 135, potassium 3.7, bicarb 28.7, BUN 35, creatinine 2.2, eGFR 22. Will give 1 L normal saline at 70 mL/h and 40 mEq potassium p.o. No plans for dialysis today. 03/24/2024 patient currently seen in telemetry. More alert and awake. Patient has more than a liter of urine output although 1800 colostomy losses. Blood pressure 144/62, heart rate 83. WBC 12.8, hemoglobin 9.1, platelets 329. Sodium 139, potassium 4.2, BUN 43, creatinine 2.1, phosphorus 2.2, magnesium 1.7 Primary team wanted to do CT abdomen with contrast. Dr. Flynn suggested can hold CT with contrast for 1 to 2 days. 1 L IV fluids given. Will monitor renal function closely. No need for dialysis today. However to for the weekend will leave Vas-Cath. 03/27/2024 patient currently seen in medical floor. Resting comfortably. Still having significant colostomy losses. CT abdomen with contrast ordered for tomorrow. Labs, medications reviewed. Patient feeling much better. 03/28/2024 patient seen and examined in telemetry. Patient mildly confused. Vas-Cath has been removed. 2 rapid responses called overnight: 1 for hypotension given 2 L IV fluids, 1 for seizure at 3 AM treated with Ativan, patient receiving Keppra. Patient appears hypovolemic on exam: Dry mucous membranes, no edema. Labs showed sodium 141, potassium 4.2, bicarb 26.3, BUN 30, creatinine 1.3, eGFR 42. Will initiate maintenance fluids with half-normal saline. Exam Vital Signs Temp Pulse Resp BP Pulse Ox O2 Del Method O2 Flow Rate 97.6 F 69 19 133/71 H 100 Nasal Cannula 2 03/24/24 08:00 03/24/24 08:00 03/24/24 08:00 03/24/24 08:00 03/24/24 08:00 03/24/24 08:00 03/24/24 08:00 Narrative Exam PE: Gen: Well-developed and well-nourished. Elderly frail lady. HEENT: NCAT, PERRLA, EOMI, anicteric conjunctivae. Dry mucous membranes. CVS: normal S1 and S2. RRR. No M/R/G. Resp: Lungs clear to auscultation bilaterally. Abd: soft, non-tender, non-distended. Illeostomy, leaking with skin irritation. MSK: Good ROM in BUE & BLE. No edema or rash. Neuro: CN II-XII grossly intact. Strength 4/5 in BUE & BLE. Alert and oriented x3. Mildly confused. Objective Labs 03/28/24 07:38 03/28/24 07:38 Labs: Laboratory Results - last 24 hr 03/24/24 04:50 WBC 12.8 H RBC 3.19 L Hgb 9.1 L Hct 28.3 L MCV 89 MCH 28.5 MCHC 32.2 RDW Std Deviation 50.2 H Plt Count 329 Neut % (Auto) 71 Lymph % (Auto) 20 Schuyler % (Auto) 5 Eos % (Auto) 1 Baso % (Auto) 0 Neut # (Auto) 9.1 H Lymph # (Auto) 2.6 Schuyler # (Auto) 0.7 Eos # (Auto) 0.1 Baso # (Auto) 0.0 Immature Gran # (Auto) 0.37 H Absolute Nucleated RBC 0.00 Immature Gran % 3 H Nucleated RBC % 0 Sodium 139 Potassium 4.2 D Chloride 105 Carbon Dioxide 28.3 Anion Gap 6 L BUN 43 H Creatinine 2.1 H Estim Creat Clear Calc 20.5 L eGFR 24 L BUN/Creatinine Ratio 20 Glucose 100 Calculated Osmolality 288 Calcium 8.5 Phosphorus 2.2 L Magnesium 1.7 ABG Interpretation ABG results: 03/21/24 05:40 ABG pH 7.35 ABG pCO2 41 ABG pO2 121 H ABG HCO3 23 ABG O2 Saturation 99 H ABG Base Excess -3 Quality Measures Quality Measures VTE prophylaxis and sepsis Current suspected stage: sepsis Possible source: skin/soft tissue Blood cultures ordered: yes Antibiotic ordered: Yes Advance care planning discussed with:: patient Assessment & Plan Assessment Current Active Medications: Generic Name Dose Route Start Last Admin Trade Name Freq PRN Reason Stop Dose Admin Acetaminophen 650 mg 03/21/24 05:19 Acetaminophen 325 Mg Tablet PO 04/20/24 05:18 Q6H PRN Fever >101.5 Albuterol/Ipratropium 3 ml 03/21/24 15:51 Albuterol/Ipratropium (Duoneb) Rt Tia 3 Ml Nebu INH 04/20/24 18:59 Q4HRRT PRN Shortness of breath Donepezil HCl 10 mg 03/21/24 21:00 03/23/24 20:57 Donepezil Hcl 5 Mg Tablet PO 04/20/24 20:59 10 mg HS ASHISH Administration Heparin Sodium (Porcine) 3,700 unit 03/21/24 17:43 03/21/24 20:09 Heparin Sod Inj 1000 Unit/Ml Vial 10 Ml INDWELLCAT 04/04/24 17:42 3,700 unit PRN PRN Administration DIALYSIS Heparin Sodium (Porcine) 5,000 unit 03/22/24 17:30 03/23/24 21:00 Heparin Sod Inj 5000 Unit/Ml Vial SC 04/05/24 17:29 5,000 unit Q12HR ASHISH Administration Hydralazine HCl 10 mg 03/21/24 15:45 Hydralazine Hcl 10 Mg Tablet PO 04/20/24 17:59 Q6HR PRN SBP>160 Albumin Human 25 gm in 100 mls @ 100 mls/min 03/21/24 10:54 Albuminar-25 Ivpb IV PRN PRN DIALYSIS Ceftriaxone Sodium/Dextrose 50 mls @ 100 mls/hr 03/22/24 18:52 03/23/24 08:43 Rocephin/D5w 1gm Iv Premix IV 03/29/24 18:51 100 mls/hr QDAY ASHISH Administration Metronidazole 500 mg in 100 mls @ 100 mls/hr 03/23/24 09:00 03/24/24 06:03 Flagyl 500 Mg Iv IV 03/30/24 08:59 100 mls/hr Q8HR ASHISH Administration Sodium Chloride 1,000 mls @ 70 mls/hr 03/24/24 08:37 Ns IV 03/24/24 22:54 .[id number] ONE Levothyroxine Sodium 112 mcg/ 137 mcg 03/21/24 07:30 03/24/24 06:03 Levothyroxine Sodium 25 mcg PO 04/20/24 07:29 137 mcg ACBR ASHISH Administration Memantine 10 mg 03/21/24 21:00 03/23/24 20:57 Memantine Hcl 5 Mg Tablet PO 04/20/24 20:59 10 mg BID ASHISH Administration Metoprolol Tartrate 25 mg 03/21/24 21:00 03/23/24 20:57 Metoprolol Tartrate 25 Mg Tablet PO 04/20/24 20:59 25 mg BID ASHISH Administration Ondansetron HCl 4 mg 03/21/24 06:08 Ondansetron Inj 2 Mg/Ml Inj 2 Ml IV 04/20/24 06:07 Q6H PRN NAUSEA OR VOMITING Protocol Sodium Chloride 3 ml 03/21/24 08:25 Sodium Chloride Rt Tia 0.9% 3 Ml Nebu INH 04/20/24 08:24 PRN PRN SOLN Plan 78 y/o F with PMHx significant for hypothyroidism, hypertension, JACKIE, asthma, depression, dementia, recurrent UTI, and is status post hemicolectomy with ileostomy admitted for acute uremic encephalopathy, stage III acute kidney injury, sepsis secondary to UTI versus intra-abdominal abscess. #Acute kidney injury-suspect patient in ischemic ATN Patient received 2 dialysis treatments and started to make good urine. Held dialysis. Creatinine improved. Continue with oral hydration. Patient clinically hypovolemic on exam: Difficulty with blood draws, dry mucous membranes, no edema. Kidney function continues to improve. -Avoid nephrotoxins -Renally dose medications -daily labs -IVF: Half-normal saline at 100 mL/h. #Sepsis, secondary to GI/UTI-on antibiotics plan of care discussed with primary team, Dr. Flynn #UTI, gram-negative rods #Electrolyte imbalances #Hypothyroidism #Hypertension #Depression #Dementia Management as per primary team. Thank you for allow me to participate in the care of this patient. Plan of care discussed with attending Dr. Rahman. Vadim Price MD PGY-1 Attending Provider Attestation/Addendum patient seen and examined with resident physician Dr. Price. Note reviewed, agree with findings and recommendations with changes made. Patient had confused. Currently seen in telemetry. Apparently this morning she had another seizure episode. Clinically seems to be very dehydrated. Will start with fluids. Creatinine 1.4. Still with significant GI losses and seepage of stool around the ostomy site.
[2024-03-28] MEDS: HEPARIN SOD INJ 5000 UNIT/ML VIAL SC ×2 (09:53→20:51)
[2024-03-28] MEDS: SODIUM CHLORIDE 0.45 % 1,000 ML 75 ML IV (09:53)
[2024-03-28] MEDS: levETIRAcetam INJ 100 MG/ML VIAL 5ML 750 MG IVP (09:53)
[2024-03-28] MEDS: METOPROLOL TARTRATE 25 MG TABLET PO ×2 (09:53→20:50)
--- NOTE | 2024-03-28 10:07 | EEG_ITS ---
EEG Report EEG Interpretation [facility] Stat EEG Report Video Performed: Not performed Demographics:Patient Name:???Roula Shell Date of :???1945 Identification Number:??? Study Times: Duration:???21?minutes Indication(s):Encephalopathy Technical Summary: This EEG was performed utilizing standard International 10-20 System of electrode placement. Data were obtained and interpreted utilizing referential montage recording, with reformatting to longitudinal, transverse bipolar, and referential montages as necessary for interpretation. State(s): ?Awake ?Drowsy Activation Procedures: Hyperventilation:?Not performedPhotic Stimulation:?Performed : No Photic Driving EEG Description: An awake background of 8 Hz is noted. The remaining background activities consisted of diffuse, polymorphic, low to moderate amplitude, mixed frequency alpha and beta range patterns. ?No overt focal, lateralizing, or paroxysmal abnormalities were noted during the recording. Muscle, motion, electrode, and eye movement artifacts were occasionally noted. Impression: Normal EEG for age Clinical Correlation: The absence of epileptiform abnormalities does not preclude a clinical diagnosis of seizures. Dr Ceferino Gee [facility] For Inpatient follow-up with [facility] physician please call [facility] at . As we are not an outpatient service for any post hospital discharge needs please contact the hospital for assistance. If you have any questions for the [facility] physicians or need to reconsult for clinical or diagnostic changes please contact us via [facility] at [phone].
--- NOTE | 2024-03-28 10:15 | PC.NURSE ---
Wound RN, Trista changing ostomy bag at bedside.
--- NOTE | 2024-03-28 11:27 | ESPR_ITS ---
Tele Neuro Progress Note Progress Note Date 03/28/24 Most Recent Vital Signs Last Vital Signs Temp 97.2 F 03/28/24 08:00 Pulse 86 03/28/24 09:53 Resp 19 03/28/24 08:00 BP 120/68 03/28/24 09:53 Pulse Ox 98 03/28/24 08:00 O2 Del Method Nasal Cannula 03/28/24 08:00 O2 Flow Rate 10 03/28/24 08:00 Laboratory-Coagulation Panel PT 15.6 Seconds (9.0-12.2) H 03/26/24 22:20 INR 1.5 (0.9-1.3) H 03/26/24 22:20 APTT 31.9 Seconds (22.0-36.0) 03/26/24 22:20 Progress Note Narrative [facility] Tele[facility] Progress Note Date of Service 03/28/2024 Presentation: Based on previous neurology note(s) : 78 yo F currently admitted for management of encephalopathy, MAKENZIE, and sepsis who was stroke alerted for seizure-like activity followed by possible left-sided weakness. Other than mild dysarthria, her neurologic exam was grossly non-focal. Overall, suspect patient may have experienced a focal seizure given reported left-sided weakness immediately afterwards. Presence of focal findings does increase risk of epilepsy and would warrant empiric initiation of antiseizure medications. Rebel mmend Keppra and further seizure workup as discussed below. Interval history: 03/28/2024: had a seizure like event early AM (blank stare and arms shaking and not responding and confused afterwards) Impression: Sepsis MAKENZIE Seizure like activity and left sided weakness Recommendations: (Primary Team to order Controlled Medications) Unless specifically noted I Agree with Impression and Plan from previous Neurology note/consult. 1- Brain MRI No Acute Intracranial Abnormality. 2- Routine EEG normal 3- Seizure precautions per state law (inpatient and outpatient) 4- Antiepileptic drug: patient has been started on empiric keppra, 03/28 AM keppra was increased from 500mg BID to 750mg BID after a seizure. I further increased it to 1000mg BID. 5- Give Lorazepam 2 mg IV PRN for seizures > 3 min or > 3 episodes in one hour. Don't give more than 6-8 mg total in 24 hour period). If possible Please avoid aminophylline, theophylline, isoniazid, lindane, metronidazole, nalidixic acid, meropenem/imipenem, cefepime, TCAs, bupropion, cyclosporine, chlorambucil, tramadol, clozapine, or other drugs which can lower seizure threshold. 6- Supportive and symptomatic treatment, electrolyte management and antibiotics per primary team. Neurology will follow up clinically, Please contact [facility] Navigator to reach me if further questions/concerns arise. Examination: awake, alert, Oriented x3 speech no aphasia Extraocular movements intact face symmetric arms no drift (10s) coordination intact in finger to nose Patient / Family was informed the Neurology Consult would occur via TeleHealth consult by way of interactive audio and video telecommunications and consented to receiving care in this manner. Patient is being evaluated for possible acute neurologic impairment and high probability of imminent or life - threatening deterioration. I spent total of 16 minutes providing care to this patient, including time for face to face visit via telemedicine, review of medical records, imaging studies and discussion of findings with providers, the patient and / or family. Dr Yunier Wells [facility] For Inpatient follow-up with [facility] physician please call [facility] . This is not an outpatient service. Post hospital discharge, please contact hospital directly. Please do not communicate with [facility] physicians via secure chat. If you have any questions, Please contact [facility]. Please call or reconsult our service if there are any clinical or diagnostic changes.
--- NOTE | 2024-03-28 12:58 | PD.SURPROG ---
Documentation for date of: 03/28/24 Subjective Subjective Brief History: 78F with HTN, CHF, hypothyroidism who underwent right hemicolectomy with diverting ileostomy for fecal contamination 12/19, admitted in past for MAKENZIE here now with AMS and acute renal failure, planned for emergent HD. Workup shows leukocytosis and possible abdominal fluid collection PMH: HTN, CHF, hypothyroidism, bipolar disorder PSHx: Tonsillectomy, appendectomy, cholecystectomy, hysterectomy, R hemicolectomy with diverting ileostomy 12/19 for benign necrotic mass Meds: no anticoagulation Allergies: haldol, naproxen, fluoxetine Social hx: Nonsmoker Narrative: Undergoing workup for seizure activity, denies pain, having episodes of leakage around ileostomy so difficult to measure exact output but pt is on imodium TID Exam Vital Signs Temp Pulse Resp BP Pulse Ox O2 Del Method O2 Flow Rate 97.2 F 86 19 120/68 98 Nasal Cannula 10 03/28/24 08:00 03/28/24 09:53 03/28/24 08:00 03/28/24 09:53 03/28/24 08:00 03/28/24 08:00 03/28/24 08:00 Constitutional Constitutional: no acute distress Routine Respiratory Exam Respiratory: Present no resp distress Routine Abdominal Exam Abdominal: Present soft and ostomy (pink with green liquid stool in appliance); Absent tenderness or distended Results Results: Laboratory Laboratory results: results reviewed Results: Imaging CT scan - abdomen: report reviewed and image reviewed Assessment & Plan Plan 78F with HTN, CHF, hypothyroidism who underwent right hemicolectomy with diverting ileostomy for fecal contamination 12/19, admitted with acute renal failure, improved from that standpoint although now with episodes of seizure activity. I explained to pt and her daughter that the soonest I can perform ileostomy reversal is 04/05; they are both agreeable and understand that if she is medically clear before that date she may first be discharged home Strict I&O, increase imodium if ileostomy output >1500cc/24h DC root Physical therapy Plan for ileostomy reversal (potentially as outpt) 04/05
[2024-03-28] MEDS: LOPERAMIDE 2 MG CAPSULE 10 MG PO ×2 (13:42→21:02)
[2024-03-28] MEDS: SODIUM CHLORIDE 0.45 % 1,000 ML 100 ML IV (13:42)
--- NOTE | 2024-03-28 14:16 | PC.SS ---
Rounding Note: Urology consultation is pending.
--- NOTE | 2024-03-28 14:48 | ESPR_ITS ---
<Statement entered by Alyson Vang MD - 03/29/24 16:25> Senior Resident Attestation: I supervised/discussed management plan with resident physician Dr. Guerrero, and was involved in the care of this patient. I personally saw and examined the patient and discussed the assessment and plan with the entire medicine team, including my attending. I agree with the assessment and plan as documented. Patient's care was discussed with attending physician, Dr. Nancy Vang MD PGY-3 Documentation for date of: 03/28/24 Subjective Subjective Interval history: Patient seen at bedside. Had a rapid response overnight for witnessed seizure, and starting his focal to generalized tonic-clonic. Patient was given 2 mg IV Ativan and subsequently was in postictal state. She received loading dose of Keppra 1000 mg and scheduled dose was increased to 750 mg twice daily. An EEG was done and read by telemetry neuro, showed no overt findings and was normal for age. Per recommendations, Keppra was increased to 1000 mg twice daily. Ileostomy output decreasing today, on loperamide 10 mg 3 times daily. Nephrology started the patient on a half NS at 100 cc/h. Renal function significantly improved, creatinine is at 1.3 today and lactic acid down trended to 1.5. General surgeon Dr. Flynn seen patient today, plans to do ileostomy reversal, 04/05. Anticipate discharge within the next 24 hours if she remains seizure-free and labs are okay. Exam Vital Signs Temp Pulse Resp BP Pulse Ox O2 Del Method O2 Flow Rate 97.2 F 88 18 131/51 H 98 Nasal Cannula 10 03/28/24 12:00 03/28/24 12:00 03/28/24 12:00 03/28/24 12:00 03/28/24 12:00 03/28/24 12:00 03/28/24 12:00 Narrative Exam GENERAL: AAOX3 NEURO: BRIM STRETCHER grossly intact, moves extremities x4 HEENT: Dry mucosa. Eyes open, symmetrical, & clear CARDIO: No chest pain on palpation. Heart RRR, no obvious murmurs PULM: No noted coughing/dyspnea. Lungs CTA B/L, GI: Abdomen soft, nondistended, no pain on palpation. Colostomy area seen, mild cellulitis seen in surrounding area. BSx4 URO/CEMENT CONTRACTOR:: No further abnormalities noted. SKIN/MSK/EXT: No wounds/rashes/edema/amputations, no pain on palpation. Pedal pulses present B/L Objective Labs 03/28/24 07:38 03/28/24 07:38 Labs: Laboratory Results - last 24 hr 03/27/24 03/27/24 03/28/24 17:10 20:45 01:00 WBC 12.3 H RBC 3.29 L Hgb 9.4 L Hct 29.4 L MCV 89 MCH 28.6 MCHC 32.0 RDW Std Deviation 52.3 H Plt Count 279 D Neut % (Auto) 72 Lymph % (Auto) 17 [place] % (Auto) 7 Eos % (Auto) 2 Baso % (Auto) 0 Neut # (Auto) 8.9 H Lymph # (Auto) 2.1 [place] # (Auto) 0.9 H Eos # (Auto) 0.2 Baso # (Auto) 0.0 Immature Gran # (Auto) 0.22 H Absolute Nucleated RBC 0.00 Immature Gran % 2 H Nucleated RBC % 0 Sodium 138 Potassium 4.0 D Chloride 105 Carbon Dioxide 25.4 Anion Gap 8 BUN 34 H Creatinine 1.4 H Estim Creat Clear Calc 30.5 L eGFR 38 L BUN/Creatinine Ratio 24 H Glucose 139 H D Calculated Osmolality 285 Lactic Acid 3.0 H 5.2 H* 3.5 H Calcium 8.3 Corrected Calcium 9.2 Magnesium Total Bilirubin 0.3 AST 22 ALT 16 Alkaline Phosphatase 228 H Total Protein 5.7 Albumin 2.9 L Globulin 2.8 Albumin/Globulin Ratio 1.0 L 03/28/24 07:38 WBC 14.2 H RBC 3.32 L Hgb 9.4 L Hct 29.7 L MCV 90 MCH 28.3 MCHC 31.6 RDW Std Deviation 53.2 H Plt Count 277 Neut % (Auto) 66 Lymph % (Auto) 20 [place] % (Auto) 6 Eos % (Auto) 6 Baso % (Auto) 0 Neut # (Auto) 9.3 H Lymph # (Auto) 2.9 [place] # (Auto) 0.8 Eos # (Auto) 0.9 H Baso # (Auto) 0.0 Immature Gran # (Auto) 0.19 H Absolute Nucleated RBC 0.00 Immature Gran % 1 H Nucleated RBC % 0 Sodium 141 Potassium 4.2 Chloride 109 H Carbon Dioxide 26.3 Anion Gap 6 L BUN 30 H Creatinine 1.3 Estim Creat Clear Calc 33.1 L eGFR 42 L BUN/Creatinine Ratio 23 H Glucose 82 D Calculated Osmolality 286 Lactic Acid 1.5 Calcium 8.6 Corrected Calcium 9.4 Magnesium 1.8 Total Bilirubin 0.4 AST 16 ALT 14 Alkaline Phosphatase 214 H Total Protein 5.8 Albumin 3.0 L Globulin 2.8 Albumin/Globulin Ratio 1.1 L ABG Interpretation ABG results: 03/21/24 05:40 ABG pH 7.35 ABG pCO2 41 ABG pO2 121 H ABG HCO3 23 ABG O2 Saturation 99 H ABG Base Excess -3 Quality Measures Quality Measures VTE prophylaxis and sepsis Current suspected stage: sepsis Possible source: skin/soft tissue Blood cultures ordered: yes Antibiotic ordered: Yes Advance care planning discussed with:: patient Assessment & Plan Assessment Current Active Medications: Generic Name Dose Route Start Last Admin Trade Name Freq PRN Reason Stop Dose Admin Acetaminophen 650 mg 03/21/24 05:19 Acetaminophen 325 Mg Tablet PO 04/20/24 05:18 Q6H PRN Fever >101.5 Albuterol/Ipratropium 3 ml 03/21/24 15:51 Albuterol/Ipratropium (Duoneb) Rt Tia 3 Ml Nebu INH 04/20/24 18:59 Q4HRRT PRN Shortness of breath Donepezil HCl 10 mg 03/21/24 21:00 03/27/24 20:37 Donepezil Hcl 5 Mg Tablet PO 04/20/24 20:59 10 mg HS ASHISH Administration Heparin Sodium (Porcine) 3,700 unit 03/21/24 17:43 03/21/24 20:09 Heparin Sod Inj 1000 Unit/Ml Vial 10 Ml INDWELLCAT 04/04/24 17:42 3,700 unit PRN PRN Administration DIALYSIS Heparin Sodium (Porcine) 5,000 unit 03/22/24 17:30 03/28/24 09:53 Heparin Sod Inj 5000 Unit/Ml Vial SC 04/05/24 17:29 5,000 unit Q12HR ASHISH Administration Hydralazine HCl 10 mg 03/21/24 15:45 Hydralazine Hcl 10 Mg Tablet PO 04/20/24 17:59 Q6HR PRN SBP>160 Albumin Human 25 gm in 100 mls @ 100 mls/min 03/21/24 10:54 Albuminar-25 Ivpb IV PRN PRN DIALYSIS Piperacillin/Tazobactam/Dextrose 3.375 gm in 50 mls @ 12.5 mls/hr 03/28/24 06:00 03/28/24 13:42 Zosyn IV 04/04/24 05:59 12.5 mls/hr Q8HR ASHISH Administration Protocol Sodium Chloride 1,000 mls @ 100 mls/hr 03/28/24 12:46 03/28/24 13:42 Ns 0.45% IV 03/28/24 19:07 100 mls/hr .Q10H ONE Administration Levetiracetam 1,000 mg 03/28/24 21:00 Levetiracetam Inj 100 Mg/Ml Vial 5ml IVP 04/27/24 20:59 Q12HR ASHISH Levothyroxine Sodium 112 mcg/ 137 mcg 03/21/24 07:30 03/28/24 05:15 Levothyroxine Sodium 25 mcg PO 04/20/24 07:29 Not Given ACBR ASHISH Loperamide HCl 10 mg 03/26/24 14:00 03/28/24 13:42 Loperamide 2 Mg Capsule PO 04/02/24 13:59 10 mg TID ASHISH Administration Lorazepam 2 mg 03/28/24 03:50 Lorazepam 2 Mg/Ml Vial IVP 04/02/24 03:46 Q15M PRN SEIZURES Memantine 10 mg 03/21/24 21:00 03/26/24 20:42 Memantine Hcl 5 Mg Tablet PO 04/20/24 20:59 10 mg BID ASHISH Administration Metoprolol Tartrate 25 mg 03/21/24 21:00 03/28/24 09:53 Metoprolol Tartrate 25 Mg Tablet PO 04/20/24 20:59 25 mg BID ASHISH Administration Ondansetron HCl 4 mg 03/21/24 06:08 Ondansetron Inj 2 Mg/Ml Inj 2 Ml IV 04/20/24 06:07 Q6H PRN NAUSEA OR VOMITING Protocol Sodium Chloride 3 ml 03/21/24 08:25 Sodium Chloride Rt Tia 0.9% 3 Ml Nebu INH 04/20/24 08:24 PRN PRN SOLN Plan Summary: The patient is a 78-year-old female with a past medical history of hypothyroidism, hypertension, JACKIE, asthma, depression, dementia, recurrent UTI, and is status post hemicolectomy with ileostomy admitted for acute uremic encephalopathy, stage III acute kidney injury, sepsis secondary to UTI versus intra-abdominal abscess. #?New onset seizures Patient had a rapid response called on 03/26 night for shakiness and blank staring. Had left-sided weakness which has resolved. Teleneuro was consulted, stroke alert was called. CT head and CTA negative for any acute findings. 03/28/2024- Had a rapid response overnight for witnessed seizure, and starting his focal to generalized tonic-clonic. Patient was given 2 mg IV Ativan and subsequently was in postictal state. She received loading dose of Keppra 1000 mg and scheduled dose was increased to 750 mg twice daily. An EEG was done and read by telemetry neuro, showed no overt findings and was normal for age. Per recommendations, Keppra was increased to 1000 mg twice daily Plan -CT Keppra 1000mg bid -Seizure precautions -Holding memantine -Consulted teleneuro, appreciate recommendations #Acute encephalopathy uremic vs infections #Acute kidney injury #Increased ileostomy output Decreased p.o. intake in the last 2 to 3 days with nausea and vomiting and presence of ileostomy, thus likely prerenal. However, given extensive elevation in creatinine and drop in GFR other etiologies cannot be excluded. Initial creatinine 9.5 (BL 1.0), BUN 121. Will have received total of 3.5 L of IVF. On admission, patient was noted to have hyperkalemia, increased BUN and creatinine of up to 9.5 as well as hyperphosphatemia. UA was positive for UTI, CT abdomen pelvis showed some suspicion for intra-abdominal abscess. The patient was given 3.5 L of NS and 1 dose of ceftriaxone and admitted for management of sepsis secondary to UTI versus intra-abdominal abscess. On review today, patient's potassium was found to be 6.6 and she was started on a hyperkalemic protocol-5 units of insulin, D50 and given 800 mg of sevelamer. Clinically, she no longer has episodes of vomiting or nausea and mentation is back to baseline. Nephrology was consulted for urgent hemodialysis. BUN and creatinine still showing significant improvement, creatinine is 1.2 today, GFR 46 Patient having increased output from ileostomy, Pending CT with contrast of abdomen prior to possible ileostomy reversal by general surgeon Dr. Flynn. 03/28/2024- Ileostomy output decreasing today, on loperamide 10 mg 3 times daily. Nephrology started the patient on a half NS at 100 cc/h. Renal function significantly improved, creatinine is at 1.3 today and lactic acid down trended to 1.5. General surgeon Dr. Flynn seen patient today, plans to do ileostomy reversal, 04/05. Plan: -CT Loperamide 10mg TID -Continue to monitor CMP -Avoid nephrotoxins -Renally dose medications -Consulted general surgery appreciate recommendations -Consulted nephrology, appreciate recommendations #Sepsis, secondary to #E.Coli UTI #Possible intra-abdominal abscess #History of recurrent UTI CT A/P prelim report shows possible intra-abdominal abscess. Patient reports dysuria and cloudy urine, noted to have recurrent UTIs. Most recent urine cultures positive for E. coli, pansensitive. WBC on admission-20.9 Additionally, patient is on IV Zosyn for sepsis management. General surgeon Dr. Flynn consulted, recommends to continue wound care Patient was evaluated by the general surgeon Dr. Flynn who is considering takedown of the ileostomy following a CT scan with contrast which will be done when renal function is much better. For this reason, we will leave the TDC in for possible dialysis postcontrast CT. CT to be done on Wednesday Otherwise, patient is still on ceftriaxone and metronidazole. Plan: -Continue IV Zosyn (Day 2 today, day 8 of antibiotics total) ?General Surgeon Dr. Flnyn consulted, following recommendations -Referred to wound care -Continue to monitor CBC #Electrolyte imbalances #Hyponatremia-resolved #Hyperkalemia-resolved #Hypochloremia-resolved #Hypocalcemia-resolved #Hyperphosphatemia-resolved #Hypomagnesemia-resolved -Hyperkalemic protocol initiated with 5 units of insulin, D50 and sevelamer as well as albuterol on admission. -Urgent dialysis indicated on admission, patient had temporary catheter placement. -Holding dialysis for now as renal function is improving Plan: ? Nephrology consulted, following recommendations ? Continue to monitor CMP #History of hypothyroidism Plan ? Resume home medication levothyroxine 125 mcg before breakfast #History of hypertension Plan ? Resume home med- Metoprolol tartrate 25mg BID -Hydralazine 10mg Q6HR PRN for SBP >160 #History of depression #History of dementia #History of bipolar #History of anxiety Plan ? Resume home medications donepezil and memantine -Once clinical status improved, will consider resuming nortriptyline #History of obstructive sleep apnea Plan ? CPAP at bedtime as needed #History of asthma Plan ? DuoNebs every 4 hours breathing treatment as needed DVT prophylaxis: Subcutaneous heparin GI prophylaxis: Not indicated Diet: Dysphagia 1?pur?ed Lines: Peripheral IV Code status: Full code Case was discussed with senior resident Dr Vang PGY-3 and attending physician, Dr Millie Guerrero MD PGY-1 Attending Provider Attestation/Addendum I reviewed labs, imaging, EKG, home medications and prior available records. Face to face evaluation was performed by me. I have personally examined the patient and discussed assessment and plan with the IM team. I reviewed the resident note and agree with the plan with exceptions as below. Breakthrough seizures: Rapid response was called overnight for seizure-like activity. Ordered EEG. Ordered brain MRI that showed no acute changes. Consulted teleneurology: Recommended increasing Keppra to 1000 mg twice daily. Acute hypotension: New complication happen overnight. Improved with IV fluids. Likely in setting of diarrhea. Continue IV fluids. Monitor vital signs closely. High ostomy output: Etiology is unclear. Sent to C. difficile testing. Continue IV hydration. Discussed reversal of ileostomy with general surgery: We will not be able to reverse it until next week. Acute encephalopathy: Her mental status is close to baseline. Likely in the setting of MAKENZIE versus UTI. Management of the underlying conditions as below. Delirium precautions. MAKENZIE: Requiring hemodialysis, now off hemodialysis. Creatinine is stable. Nephrology is following. Continue IV fluids. Monitor kidney function. Avoid nephrotoxins. Renally dosed medications. High ostomy output: Discussed with general surgery: Cannot do the reversal before next week. Continue IV hydration. Sent C. difficile testing
--- NOTE | 2024-03-28 15:40 | CHAP ---
09:30 AM Visited by spiritual care volunteer Provided prayer for Patient
--- NOTE | 2024-03-28 18:25 | PC.NURSE ---
Ostomy bag changed related to leakage.
[2024-03-28] MEDS: DONEPEZIL HCL 5 MG TABLET 10 MG PO (20:50)
[2024-03-29] VITALS (11 sets, daily range): BP systolic 105–148; BP diastolic 51–92; PULSE 68–89; RESP 12–25; TEMP 36.1–36.6; O2SAT 92–99; BMI 25.0; BMI 12.0
[2024-03-29] MEDS: LEVOTHYROXINE SODIUM 112 MCG, LEVOTHYROXINE SODIUM 25 MCG 137 MCG PO (05:17)
[2024-03-29] MEDS: PIPER/TAZO 3.375 GM 3.375 GM/50 ML BAG IV (05:17)
[2024-03-29] MEDS: LOPERAMIDE 2 MG CAPSULE 10 MG PO ×3 (05:18→21:15)
[2024-03-29 05:43] LABS: Basophils # (Auto) 0.1 Thou/mm3 (0.0-0.2); Basophils % (Auto) 0 % (0-2.5); Eosinophils # (Auto) 1.1 Thou/mm3 (0.0-0.5); Eosinophils % (Auto) 6 % (0-10); Hematocrit 33.5 % (36.0-46.0); Hemoglobin 10.4 g/dL (12.0-16.0); Immature Granulocytes % (Auto) 1 % (0-0); Immature Granulocytes Auto 0.21 Thou/mm3 (0.00-0.00); Lymphocytes # (Auto) 3.2 Thou/mm3 (1.0-4.8); Lymphocytes % (Auto) 19 % (10-50); Mean Corpuscular Hemoglobin 28.8 pg (25.0-35.0); Mean Corpuscular Volume 93 fL (80-100); Monocytes # (Auto) 1.1 Thou/mm3 (0.0-0.8); Monocytes % (Auto) 7 % (0-12); Neutrophils # (Auto) 11.3 Thou/mm3 (1.8-7.7); Neutrophils % (Auto) 67 % (37-80); Nucleated Red Blood Cell % 0 /100 WBC (0); Platelet Count 288 Thou/mm3 (140-440); Red Blood Count 3.61 Miln/mm3 (4.00-5.20); White Blood Count 16.9 Thou/mm3 (3.6-11.0)
[2024-03-29 06:44] LABS: Alanine Aminotransferase 12 U/L (10-49); Albumin, Serum 3.2 gm/dL (3.4-4.8); Albumin/Globulin Ratio 1.1 (1.2-2.2); Alkaline Phosphatase 203 U/L (46-116); Anion Gap 7 (7-16); Aspartate Amino Transferase 18 U/L (0-34); BUN/Creatinine Ratio 22 Ratio (12-20); Bilirubin,Total 0.4 mg/dL (0.3-1.2); Blood Urea Nitrogen 28 mg/dL (9-23); Calcium 8.8 mg/dL (8.3-10.6); Calcium (Corrected) 9.4 mg/dL (8.5-10.1); Carbon Dioxide 26.8 mMol/L (20.0-31.0); Chloride 108 mMol/L (98-107); Creatinine (Component) 1.3 mg/dL (0.6-1.3); Estimated Creatinine Clearance 33.3 mL/min (>60); Glucose 73 mg/dL (74-106); Magnesium 1.6 mg/dL (1.6-2.6); Osmolality,Calculated 287 (275-295); Phosphorous 2.3 mg/dL (2.4-5.1); Potassium 4.1 mMol/L (3.4-5.1); Sodium 142 mMol/L (136-145); Total Protein 6.2 gm/dL (5.7-8.2); eGFR 42 See Note
[2024-03-29] MEDS: SODIUM CHLORIDE 0.45 % 1,000 ML 100 ML IV (08:02)
[2024-03-29] MEDS: NAPH,KPH MBDB 1 PACKET (1.5 GM) PO (09:29)
[2024-03-29] MEDS: levETIRAcetam INJ 100 MG/ML VIAL 5ML 1000 MG IVP ×2 (09:30→20:23)
[2024-03-29] MEDS: METOPROLOL TARTRATE 25 MG TABLET PO (09:30)
[2024-03-29] MEDS: HEPARIN SOD INJ 5000 UNIT/ML VIAL SC ×2 (09:30→20:23)
--- NOTE | 2024-03-29 10:08 | PD.NEPHPROG ---
Documentation for date of: 03/29/24 Subjective Subjective Interval history: 78 y/o F with PMHx significant for hypothyroidism, hypertension, JACKIE, asthma, depression, dementia, recurrent UTI, and is status post hemicolectomy with ileostomy presents with altered mental status and nausea and vomiting. Patient initially presented to ED with altered mentation and was not able to provide history. Subsequently given 2.5 L of fluids per sepsis protocol and mentation slowly improved. Upon evaluation, patient endorsed 2 to 3 days of nausea and vomiting along with decreased p.o. intake. Also endorses abdominal pain at ileostomy site, decreased ileostomy output, as well as dysuria and cloudy urine but denies fever or chills. Otherwise also denies shortness of breath or chest discomfort. Of note, patient recently discharged on 02/15 for ileostomy leakage/malfunction. CT head unremarkable. CT A/P showed Soft tissue mass in the anterior abdominal wall 2.8 x 2.2 cm and aggregate of small bowel versus abscess in the right lower abdomen poorly defined, at least 4 cm in dimension. Patient recieved IVF, magnesisum, zosyn and rocephin in ED. Labs showed sodium 125, potassium 6.6, BUN 134, Bilingual Office Assistant 9.3, eGFR 4, Corrected Ca 8.3, phos 10.7, Mg 1.1. Patient has no known history CKD. On exam patient was lethargic but responsive, followed commands, A&Ox3. Appears euvolemic. Nephrology consulted for acute renal failure, plan for emergent dialysis. 03/22: Patient seen and examined in bed. Patient remains lethargic. Signs of leaking around ileostomy bag. Labs significantly improved after dialysis session yesterday. Sodium 129, potassium 4.1, bicarb 25.4, BUN 62, creatinine 2.6, eGFR 12. Plan for dialysis today. Prelim urine culture positive for gram-negative rods. Patient currently on Zosyn. 03/23: Patient seen and examined in bed. Patient is somewhat lethargic but improved from before. Sodium 135, potassium 3.7, bicarb 28.7, BUN 35, creatinine 2.2, eGFR 22. Will give 1 L normal saline at 70 mL/h and 40 mEq potassium p.o. No plans for dialysis today. 03/24/2024 patient currently seen in telemetry. More alert and awake. Patient has more than a liter of urine output although 1800 colostomy losses. Blood pressure 144/62, heart rate 83. WBC 12.8, hemoglobin 9.1, platelets 329. Sodium 139, potassium 4.2, BUN 43, creatinine 2.1, phosphorus 2.2, magnesium 1.7 Primary team wanted to do CT abdomen with contrast. Dr. Flynn suggested can hold CT with contrast for 1 to 2 days. 1 L IV fluids given. Will monitor renal function closely. No need for dialysis today. However to for the weekend will leave Vas-Cath. 03/28/2024 patient currently seen in medical floor. Resting comfortably. Still having significant colostomy losses. CT abdomen with contrast results reviewed. Labs, medications reviewed. Patient feeling much better. Encouraged encourage p.o. fluids. Dialysis catheter was removed. Still leaking around the colostomy site. Surgeon on the case. Review of Systems Review of Systems Narrative Review of Systems: CONSTITUTIONAL: Patient denies any fever, chills. Patient feeling much better HEENT: Denies any visual disturbances or hearing problems. CARDIOVASCULAR: Patient denies any chest pain, shortness of breath, swelling in the lower extremities. PULMONARY: Patient denies any shortness of breath, cough. GASTROINTESTINAL: patient complaining of discomfort around the colostomy site. Leakage noted. GENITOURINARY: Patient denies any urinary symptoms of burning or frequency or hematuria, denies any form in the urine. SKIN: Denies any rash. MUSCULOSKELETAL: Gait imbalance NEUROLOGICAL: Denies any neurological problems of strokes, seizures or confusion. Denies any memory problems. Exam Vital Signs Temp Pulse Resp BP Pulse Ox O2 Del Method O2 Flow Rate 36.3 C 83 12 145/75 H 93 L Nasal Cannula 3 03/29/24 08:00 03/29/24 09:30 03/29/24 08:45 03/29/24 09:30 03/29/24 08:45 03/29/24 08:00 03/29/24 08:45 Narrative Exam GENERAL APPEARANCE: Fragile lady currently seen in medical floor NECK: Neck supple, no JVD or bruit CARDIOVASCULAR: Heart regular, no murmurs LUNGS/CHEST: Chest clear to auscultation. No rales, rhonchi, wheezing ABDOMEN: Soft, bowel sounds present. She has colostomy and leakage around the colostomy with erythema noted. Significant amount of copious liquid stool noted. EXTREMITIES: No edema, clubbing or cyanosis. SKIN: Redness around colostomy site MUSCULOSKELETAL: In bed NEUROLOGICAL : No neurological deficits. Alert and awake Objective Labs 03/29/24 04:15 03/29/24 04:15 Labs: Laboratory Results - last 24 hr 03/29/24 04:15 WBC 16.9 H RBC 3.61 L Hgb 10.4 L Hct 33.5 L MCV 93 MCH 28.8 MCHC 31.0 RDW Std Deviation 56.0 H Plt Count 288 Neut % (Auto) 67 Lymph % (Auto) 19 Benson % (Auto) 7 Eos % (Auto) 6 Baso % (Auto) 0 Neut # (Auto) 11.3 H Lymph # (Auto) 3.2 Benson # (Auto) 1.1 H Eos # (Auto) 1.1 H Baso # (Auto) 0.1 Immature Gran # (Auto) 0.21 H Absolute Nucleated RBC 0.00 Immature Gran % 1 H Nucleated RBC % 0 Sodium 142 Potassium 4.1 Chloride 108 H Carbon Dioxide 26.8 Anion Gap 7 BUN 28 H Creatinine 1.3 Estim Creat Clear Calc 33.3 L eGFR 42 L BUN/Creatinine Ratio 22 H Glucose 73 L Calculated Osmolality 287 Calcium 8.8 Corrected Calcium 9.4 Phosphorus 2.3 L Magnesium 1.6 Total Bilirubin 0.4 AST 18 ALT 12 Alkaline Phosphatase 203 H Total Protein 6.2 Albumin 3.2 L Globulin 3.0 Albumin/Globulin Ratio 1.1 L ABG Interpretation ABG results: 03/21/24 05:40 ABG pH 7.35 ABG pCO2 41 ABG pO2 121 H ABG HCO3 23 ABG O2 Saturation 99 H ABG Base Excess -3 Assessment & Plan Additional Assessment & Plan Additional Plan: 78 y/o F with PMHx significant for hypothyroidism, hypertension, JACKIE, asthma, depression, dementia, recurrent UTI, and is status post hemicolectomy with ileostomy admitted for acute uremic encephalopathy, stage III acute kidney injury, sepsis secondary to UTI versus intra-abdominal abscess. #Acute kidney injury-suspect patient in ischemic ATN Patient received 2 dialysis treatments and started to make good urine. Held dialysis. Creatinine improved.-s/p CT abdomen with IV contrast . Continue with oral hydration. Dialysis catheter removed. -Avoid nephrotoxins -Renally dose medications -daily labs #Sepsis, secondary to GI/UTI-on antibiotics plan of care discussed with primary team, Dr. Flynn #UTI, gram-negative rods #Electrolyte imbalances #Hypothyroidism #Hypertension #Depression #Dementia Management as per primary team. Quality - progress note Quality Measures Quality Measures: VTE prophylaxis Reason for Continued Stay Reason for Continued Stay: further monitoring
--- NOTE | 2024-03-29 10:50 | CHAP ---
Patient was visited by a Spiritual Care Volunteer on 03/29/2024 between [id number] and [id number] and received comfort, encouragement and/or prayer.
--- NOTE | 2024-03-29 14:45 | ESPR_ITS ---
<Statement entered by Alyson Vang MD - 03/29/24 16:25> Senior Resident Attestation: I supervised/discussed management plan with resident physician Dr. Guerrero, and was involved in the care of this patient. I personally saw and examined the patient and discussed the assessment and plan with the entire medicine team, including my attending. I agree with the assessment and plan as documented. Patient's care was discussed with attending physician, Dr. Nancy Vang MD PGY-3 Documentation for date of: 03/29/24 Subjective Subjective Interval history: Patient seen with daughter at bedside. No acute overnight events. Patient has remained seizure-free in the last 36 hours, continues to be on Keppra now at 1000 mg twice daily. On labs today, uptrending WBC at 16.9 today, possibly due to dehydration/hemoconcentration/ reactive to seizure episodes. Kidney function improving, creatinine is at 1.3 with BUN 28 today, otherwise CMP unremarkable. Patient is still on loperamide 10 mg 3 times daily for increased ileostomy output-300 mL overnight. As patient has been on antibiotics for total of 8 days now, will DC IV Zosyn. Continue to monitor renal function and encourage increased oral intake. 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 Eyes open, symmetrical, & clear CARDIO: No chest pain on palpation. Heart RRR, no obvious murmurs PULM: No noted coughing/dyspnea. Lungs CTA B/L GI: Abdomen soft, nondistended, no pain on palpation. Colostomy bag with content, no leak, mild cellulitis seen in surrounding area. BSx4 URO/SOFTBALL PLAYER:: No further abnormalities noted. SKIN/MSK/EXT: No wounds/rashes/edema/amputations, no pain on palpation. Pedal pulses present B/L Objective Labs 03/30/24 04:15 03/30/24 04:15 Labs: Laboratory Results - last 24 hr 03/29/24 04:15 WBC 16.9 H RBC 3.61 L Hgb 10.4 L Hct 33.5 L MCV 93 MCH 28.8 MCHC 31.0 RDW Std Deviation 56.0 H Plt Count 288 Neut % (Auto) 67 Lymph % (Auto) 19 Bacon % (Auto) 7 Eos % (Auto) 6 Baso % (Auto) 0 Neut # (Auto) 11.3 H Lymph # (Auto) 3.2 Bacon # (Auto) 1.1 H Eos # (Auto) 1.1 H Baso # (Auto) 0.1 Immature Gran # (Auto) 0.21 H Absolute Nucleated RBC 0.00 Immature Gran % 1 H Nucleated RBC % 0 Sodium 142 Potassium 4.1 Chloride 108 H Carbon Dioxide 26.8 Anion Gap 7 BUN 28 H Creatinine 1.3 Estim Creat Clear Calc 33.3 L eGFR 42 L BUN/Creatinine Ratio 22 H Glucose 73 L Calculated Osmolality 287 Calcium 8.8 Corrected Calcium 9.4 Phosphorus 2.3 L Magnesium 1.6 Total Bilirubin 0.4 AST 18 ALT 12 Alkaline Phosphatase 203 H Total Protein 6.2 Albumin 3.2 L Globulin 3.0 Albumin/Globulin Ratio 1.1 L ABG Interpretation ABG results: 03/21/24 05:40 ABG pH 7.35 ABG pCO2 41 ABG pO2 121 H ABG HCO3 23 ABG O2 Saturation 99 H ABG Base Excess -3 Quality Measures Quality Measures VTE prophylaxis and sepsis Current suspected stage: sepsis Possible source: skin/soft tissue Blood cultures ordered: yes Antibiotic ordered: Yes Advance care planning discussed with:: patient and child Assessment & Plan Assessment Current Active Medications: Generic Name Dose Route Start Last Admin Trade Name Freq PRN Reason Stop Dose Admin Acetaminophen 650 mg 03/21/24 05:19 Acetaminophen 325 Mg Tablet PO 04/20/24 05:18 Q6H PRN Fever >101.5 Albuterol/Ipratropium 3 ml 03/21/24 15:51 Albuterol/Ipratropium (Duoneb) Rt Tia 3 Ml Nebu INH 04/20/24 18:59 Q4HRRT PRN Shortness of breath Donepezil HCl 10 mg 03/21/24 21:00 03/28/24 20:50 Donepezil Hcl 5 Mg Tablet PO 04/20/24 20:59 10 mg HS ASHISH Administration Heparin Sodium (Porcine) 3,700 unit 03/21/24 17:43 03/21/24 20:09 Heparin Sod Inj 1000 Unit/Ml Vial 10 Ml INDWELLCAT 04/04/24 17:42 3,700 unit PRN PRN Administration DIALYSIS Heparin Sodium (Porcine) 5,000 unit 03/22/24 17:30 03/29/24 09:30 Heparin Sod Inj 5000 Unit/Ml Vial SC 04/05/24 17:29 5,000 unit Q12HR ASHISH Administration Hydralazine HCl 10 mg 03/21/24 15:45 Hydralazine Hcl 10 Mg Tablet PO 04/20/24 17:59 Q6HR PRN SBP>160 Albumin Human 25 gm in 100 mls @ 100 mls/min 03/21/24 10:54 Albuminar-25 Ivpb IV PRN PRN DIALYSIS Sodium Chloride 1,000 mls @ 100 mls/hr 03/29/24 06:51 03/29/24 08:02 Ns 0.45% IV 03/29/24 16:50 100 mls/hr .Q10H ONE Administration Levetiracetam 1,000 mg 03/28/24 21:00 03/29/24 09:30 Levetiracetam Inj 100 Mg/Ml Vial 5ml IVP 04/27/24 20:59 1,000 mg Q12HR ASHISH Administration Levothyroxine Sodium 112 mcg/ 137 mcg 03/21/24 07:30 03/29/24 05:17 Levothyroxine Sodium 25 mcg PO 04/20/24 07:29 137 mcg ACBR ASHISH Administration Loperamide HCl 10 mg 03/26/24 14:00 03/29/24 05:18 Loperamide 2 Mg Capsule PO 04/02/24 13:59 10 mg TID ASHISH Administration Lorazepam 2 mg 03/28/24 03:50 Lorazepam 2 Mg/Ml Vial IVP 04/02/24 03:46 Q15M PRN SEIZURES Memantine 10 mg 03/21/24 21:00 03/26/24 20:42 Memantine Hcl 5 Mg Tablet PO 04/20/24 20:59 10 mg BID ASHISH Administration Metoprolol Tartrate 25 mg 03/21/24 21:00 03/29/24 09:30 Metoprolol Tartrate 25 Mg Tablet PO 04/20/24 20:59 25 mg BID ASHISH Administration Ondansetron HCl 4 mg 03/21/24 06:08 Ondansetron Inj 2 Mg/Ml Inj 2 Ml IV 04/20/24 06:07 Q6H PRN NAUSEA OR VOMITING Protocol Sodium Chloride 3 ml 03/21/24 08:25 Sodium Chloride Rt Tia 0.9% 3 Ml Nebu INH 04/20/24 08:24 PRN PRN SOLN Plan Summary: The patient is a 78-year-old female with a past medical history of hypothyroidism, hypertension, JACKIE, asthma, depression, dementia, recurrent UTI, and is status post hemicolectomy with ileostomy admitted for acute uremic encephalopathy, stage III acute kidney injury, sepsis secondary to UTI versus intra-abdominal abscess. #?New onset seizures Patient had a rapid response called on 03/26 night for shakiness and blank staring. Had left-sided weakness which has resolved. Teleneuro was consulted, stroke alert was called. CT head and CTA negative for any acute findings. 03/29/2024- Patient has remained seizure-free in the last 36 hours, continues to be on Keppra now at 1000 mg twice daily. Plan -CT Keppra 1000mg bid -Seizure precautions -Holding memantine -Consulted teleneuro, appreciate recommendations #Acute encephalopathy uremic vs infections #Acute kidney injury #Increased ileostomy output Decreased p.o. intake in the last 2 to 3 days with nausea and vomiting and presence of ileostomy, thus likely prerenal. However, given extensive elevation in creatinine and drop in GFR other etiologies cannot be excluded. Initial creatinine 9.5 (BL 1.0), BUN 121. Will have received total of 3.5 L of IVF. On admission, patient was noted to have hyperkalemia, increased BUN and creatinine of up to 9.5 as well as hyperphosphatemia. UA was positive for UTI, CT abdomen pelvis showed some suspicion for intra-abdominal abscess. The patient was given 3.5 L of NS and 1 dose of ceftriaxone and admitted for management of sepsis secondary to UTI versus intra-abdominal abscess. On review today, patient's potassium was found to be 6.6 and she was started on a hyperkalemic protocol-5 units of insulin, D50 and given 800 mg of sevelamer. Clinically, she no longer has episodes of vomiting or nausea and mentation is back to baseline. Nephrology was consulted for urgent hemodialysis. BUN and creatinine still showing significant improvement, creatinine is 1.2 today, GFR 46 Patient having increased output from ileostomy, Pending CT with contrast of abdomen prior to possible ileostomy reversal by general surgeon Dr. Flynn. 03/29/2024- Kidney function improving, creatinine is at 1.3 with BUN 28 today, otherwise CMP unremarkable. Patient is still on loperamide 10 mg 3 times daily for increased ileostomy output-300 mL overnight. Plan: -CT Loperamide 10mg TID -Encourage increased oral intake -Continue to monitor CMP -Avoid nephrotoxins -Renally dose medications -Consulted general surgery appreciate recommendations -Consulted nephrology, appreciate recommendations #Sepsis, secondary to #E.Coli UTI #Possible intra-abdominal abscess #History of recurrent UTI CT A/P prelim report shows possible intra-abdominal abscess. Patient reports dysuria and cloudy urine, noted to have recurrent UTIs. Most recent urine cultures positive for E. coli, pansensitive. WBC on admission-20.9 Additionally, patient is on IV Zosyn for sepsis management. General surgeon Dr. Flynn consulted, recommends to continue wound care Patient was evaluated by the general surgeon Dr. Flynn who is considering takedown of the ileostomy following a CT scan with contrast which will be done when renal function is much better. For this reason, we will leave the TDC in for possible dialysis postcontrast CT. CT to be done on Wednesday Otherwise, patient is still on ceftriaxone and metronidazole. 03/29/2024- On labs today, uptrending WBC at 16.9 today, possibly due to dehydration/hemoconcentration reactive to seizure episodes. As patient has been on antibiotics for total of 8 days now, will DC IV Zosyn. Plan: -DC IV Zosyn ?General Surgeon Dr. Flynn consulted, following recommendations -Referred to wound care -Continue to monitor CBC #Electrolyte imbalances #Hyponatremia-resolved #Hyperkalemia-resolved #Hypochloremia-resolved #Hypocalcemia-resolved #Hyperphosphatemia-resolved #Hypomagnesemia-resolved -Hyperkalemic protocol initiated with 5 units of insulin, D50 and sevelamer as well as albuterol on admission. -Urgent dialysis indicated on admission, patient had temporary catheter placement. -Holding dialysis for now as renal function is improving Plan: ? Nephrology consulted, following recommendations ? Continue to monitor CMP #History of hypothyroidism Plan ? Resume home medication levothyroxine 125 mcg before breakfast #History of hypertension Plan ? Resume home med- Metoprolol tartrate 25mg BID -Hydralazine 10mg Q6HR PRN for SBP >160 #History of depression #History of dementia #History of bipolar #History of anxiety Plan ? Resume home medications donepezil and memantine -Once clinical status improved, will consider resuming nortriptyline #History of obstructive sleep apnea Plan ? CPAP at bedtime as needed #History of asthma Plan ? DuoNebs every 4 hours breathing treatment as needed DVT prophylaxis: Subcutaneous heparin GI prophylaxis: Not indicated Diet: Dysphagia 1?pur?ed Lines: Peripheral IV Code status: Full code Case was discussed with senior resident Dr Vang PGY-3 and attending physician, Dr Nancy Guerrero MD PGY-1 Attending Provider Attestation/Addendum I, Saima Cruz, DO, attest that I was physically present for the masterson portions of the service and evaluated the patient with the resident and I reviewed and discussed the case with the resident and agree with the resident's findings and plans of care as documented above Patient seen and evaluated this AM. Daughter at bedside. Patient has history of bipolar disorder, dementia, hypothyroidism, HTN, asthma, JACKIE who remains admitted due to new onset of jerking motions and blank stare concerning for new onset seizures. She appears to be more tremulous, which the daughter states that it has not started since this admission. Patient was started on keppra 1g BID. Review of home medications reveal that patient takes valproic acid, likely for her bipolar mood disorder. Will restart home valproate. However, patient does not take any dopaminergic medications that may cause an on-off phenomenon that may result in these symptoms. WBCs have been uptrending and patient had been started on loperamide due to high output from ostomy. C.diff ordered and pending. If patient remains in house next Wednesday, possible reversal ileostomy will be done if patient condition improves.
--- NOTE | 2024-03-29 16:14 | PC.SS ---
Rounding Note: Patient's white count elevated. Not medically cleared for discharge.
--- NOTE | 2024-03-29 16:31 | PD.TNEURO ---
Tele Neuro Consultation Consultation Date 03/29/24 Most Recent Vital Signs Last Vital Signs Temp 97.0 F 03/29/24 12:00 Pulse 87 03/29/24 12:00 Resp 25 H 03/29/24 12:00 BP 144/79 H 03/29/24 12:00 Pulse Ox 97 03/29/24 12:00 O2 Del Method Nasal Cannula 03/29/24 12:00 O2 Flow Rate 1 03/29/24 12:00 Laboratory-Coagulation Panel PT 15.6 Seconds (9.0-12.2) H 03/26/24 22:20 INR 1.5 (0.9-1.3) H 03/26/24 22:20 APTT 31.9 Seconds (22.0-36.0) 03/26/24 22:20 Consultation Narrative [facility] TeleNeurology Consult Services Routine Consult Follow-Up Patient Name:???Roula Shell Date of :???1945 Identification Number:??? 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 Initial labs on arrival notable for BUN 134, Na 125, Phos 10.7, Mg 1.1. Neurology was consulted with concern for focal seizures, first event on 03/26, second event on 03/28. Episodes have been characterized as blank stare, arms shaking, some confusion and dysarthria afterward with left-sided weakness. EEG 03/28: normal MRI Brain was normal Ammonia 29 03/26 Exam 03/29, she is oriented to self, place, date, and context. She has some tremors in the left upper extremity with low amplitude myoclonus. Has now had two episodes c/f seizures. Will continue on LEV, dose-adjusted for CrCl. RECS: - started on LEV, which was increased 500mg bid to 1g bid after event 03/28 --> recommend decreasing to 750mg bid given CrCl <50, (having difficulty ordering, primary team please order) - ongoing toxic-metabolic management per primary team - Give Lorazepam 2 mg IV PRN for seizures > 3 min or > 3 episodes in one hour. Don't give more than 6-8 mg total in 24 hour period) If possible Please avoid aminophylline, theophylline, isoniazid, lindane, metronidazole, nalidixic acid, meropenem/imipenem, cefepime, TCAs, bupropion, cyclosporine, chlorambucil, tramadol, clozapine, or other drugs which can lower seizure threshold. Supportive and symptomatic treatment, electrolyte management and antibiotics per primary team. ? Our recommendations are outlined below Dispositions :No further recommendations Subjective Overall feeling better. Imaging EEG: normal ? Examination Neuro Exam: General:?awake, alert, Oriented x3 speech no aphasia Extraocular movements intact face symmetric arms no drift (10s) coordination intact in finger to nose Bilateral upper extremity tremor, slight myoclonus distal left upper ? ? This consult was conducted in real time using interactive audio and video technology. Patient was informed of the technology being used for this visit and agreed to proceed. Patient located in hospital and provider located at home/office setting. Telehealth Neurology consultation was provided. I spent minutes providing telehealth care. This includes time spent for face to face visit via telemedicine, review of medical records, imaging studies and discussion of findings with providers, the patient and/or family. Dr Isabel Long [facility] For Inpatient follow-up with [facility] physician please call [facility] at . As we are not an outpatient service for any post hospital discharge needs please contact the hospital for assistance. If you have any questions for the [facility] physicians or need to reconsult for clinical or diagnostic changes please contact us via [facility] at ? ?
[2024-03-29] MEDS: DONEPEZIL HCL 5 MG TABLET 10 MG PO (20:23)
[2024-03-30] VITALS (10 sets, daily range): BP systolic 96–152; BP diastolic 51–84; PULSE 74–96; RESP 18–22; TEMP 36.4–37.4; O2SAT 91–98; BMI 25.2
--- NOTE | 2024-03-30 00:22 | PC.NURSE ---
Pt has an order for oral hydration of 333mL/hr. Pt has been refusing to drink water each hour and not meeting the goal of 333mL each hour. The pt had been refusing for the dayshift RN as well. Pt is able to swallow and take pills with applesauce, however denies water when asked to drink. Pt is alert and oriented at this time and states she just wants to sleep .
[2024-03-30] MEDS: LOPERAMIDE 2 MG CAPSULE 10 MG PO ×3 (05:59→21:04)
[2024-03-30] MEDS: LEVOTHYROXINE SODIUM 112 MCG, LEVOTHYROXINE SODIUM 25 MCG 137 MCG PO (05:59)
[2024-03-30 06:16] LABS: Basophils # (Auto) 0.1 Thou/mm3 (0.0-0.2); Basophils % (Auto) 0 % (0-2.5); Eosinophils # (Auto) 0.7 Thou/mm3 (0.0-0.5); Eosinophils % (Auto) 4 % (0-10); Hematocrit 30.3 % (36.0-46.0); Hemoglobin 9.4 g/dL (12.0-16.0); Immature Granulocytes % (Auto) 1 % (0-0); Immature Granulocytes Auto 0.13 Thou/mm3 (0.00-0.00); Lymphocytes # (Auto) 2.6 Thou/mm3 (1.0-4.8); Lymphocytes % (Auto) 17 % (10-50); Mean Corpuscular Hemoglobin 28.7 pg (25.0-35.0); Mean Corpuscular Volume 93 fL (80-100); Monocytes # (Auto) 0.8 Thou/mm3 (0.0-0.8); Monocytes % (Auto) 5 % (0-12); Neutrophils # (Auto) 11.4 Thou/mm3 (1.8-7.7); Neutrophils % (Auto) 73 % (37-80); Nucleated Red Blood Cell % 0 /100 WBC (0); Platelet Count 294 Thou/mm3 (140-440); RDW Standard Deviation 56.5 fL (36.4-46.3); Red Blood Count 3.27 Miln/mm3 (4.00-5.20); White Blood Count 15.6 Thou/mm3 (3.6-11.0)
[2024-03-30 07:10] LABS: Alanine Aminotransferase 10 U/L (10-49); Alkaline Phosphatase 186 U/L (46-116); Anion Gap 7 (7-16); Aspartate Amino Transferase 11 U/L (0-34); BUN/Creatinine Ratio 22 Ratio (12-20); Bilirubin,Total 0.4 mg/dL (0.3-1.2); Blood Urea Nitrogen 31 mg/dL (9-23); Calcium 8.6 mg/dL (8.3-10.6); Calcium (Corrected) 9.4 mg/dL (8.5-10.1); Carbon Dioxide 27.2 mMol/L (20.0-31.0); Chloride 104 mMol/L (98-107); Creatinine (Component) 1.4 mg/dL (0.6-1.3); Globulin 2.9 gm/dL (2.3-3.5); Glucose 84 mg/dL (74-106); Magnesium 1.3 mg/dL (1.6-2.6); Osmolality,Calculated 281 (275-295); Phosphorous 2.4 mg/dL (2.4-5.1); Potassium 4.2 mMol/L (3.4-5.1); Sodium 138 mMol/L (136-145); Total Protein 5.9 gm/dL (5.7-8.2); eGFR 38 See Note
[2024-03-30] MEDS: METOPROLOL TARTRATE 25 MG TABLET PO (08:54)
[2024-03-30] MEDS: HEPARIN SOD INJ 5000 UNIT/ML VIAL SC ×2 (08:55→21:07)
[2024-03-30] MEDS: levETIRAcetam INJ 100 MG/ML VIAL 5ML 750 MG IVP ×2 (08:55→21:15)
--- NOTE | 2024-03-30 09:02 | ESPR_ITS ---
Documentation for date of: 03/30/24 Subjective Subjective Interval history: 78 y/o F with PMHx significant for hypothyroidism, hypertension, JACKIE, asthma, depression, dementia, recurrent UTI, and is status post hemicolectomy with ileostomy presents with altered mental status and nausea and vomiting. Patient initially presented to ED with altered mentation and was not able to provide history. Subsequently given 2.5 L of fluids per sepsis protocol and mentation slowly improved. Upon evaluation, patient endorsed 2 to 3 days of nausea and vomiting along with decreased p.o. intake. Also endorses abdominal pain at ileostomy site, decreased ileostomy output, as well as dysuria and cloudy urine but denies fever or chills. Otherwise also denies shortness of breath or chest discomfort. Of note, patient recently discharged on 02/15 for ileostomy leakage/malfunction. CT head unremarkable. CT A/P showed Soft tissue mass in the anterior abdominal wall 2.8 x 2.2 cm and aggregate of small bowel versus abscess in the right lower abdomen poorly defined, at least 4 cm in dimension. Patient recieved IVF, magnesisum, zosyn and rocephin in ED. Labs showed sodium 125, potassium 6.6, BUN 134, International Trade Compliance Manager 9.3, eGFR 4, Corrected Ca 8.3, phos 10.7, Mg 1.1. Patient has no known history CKD. On exam patient was lethargic but responsive, followed commands, A&Ox3. Appears euvolemic. Nephrology consulted for acute renal failure, plan for emergent dialysis. 03/22: Patient seen and examined in bed. Patient remains lethargic. Signs of leaking around ileostomy bag. Labs significantly improved after dialysis session yesterday. Sodium 129, potassium 4.1, bicarb 25.4, BUN 62, creatinine 2.6, eGFR 12. Plan for dialysis today. Prelim urine culture positive for gram- negative rods. Patient currently on Zosyn. 03/23: Patient seen and examined in bed. Patient is somewhat lethargic but improved from before. Sodium 135, potassium 3.7, bicarb 28.7, BUN 35, creatinine 2.2, eGFR 22. Will give 1 L normal saline at 70 mL/h and 40 mEq potassium p.o. No plans for dialysis today. 03/24/2024 patient currently seen in telemetry. More alert and awake. Patient has more than a liter of urine output although 1800 colostomy losses. Blood pressure 144/62, heart rate 83. WBC 12.8, hemoglobin 9.1, platelets 329. Sodium 139, potassium 4.2, BUN 43, creatinine 2.1, phosphorus 2.2, magnesium 1.7 Primary team wanted to do CT abdomen with contrast. Dr. Flynn suggested can hold CT with contrast for 1 to 2 days. 1 L IV fluids given. Will monitor renal function closely. No need for dialysis today. However to for the weekend will leave Vas-Cath. 03/28/2024 patient currently seen in medical floor. Resting comfortably. Still having significant colostomy losses. CT abdomen with contrast results reviewed. Labs, medications reviewed. Patient feeling much better. Encouraged encourage p.o. fluids. Dialysis catheter was removed. Still leaking around the colostomy site. Surgeon on the case. 03/30/2024: Patient seen and examined in telemetry. Patient comfortably. Patient states she is feeling well. Significant colostomy losses: 3.2 L stool output. BUN 31, creatinine 1.4, eGFR 38. Patient still appears somewhat dry, encouraged oral hydration. Exam Vital Signs Temp Pulse Resp BP Pulse Ox O2 Del Method O2 Flow Rate 97.9 F 82 18 108/51 L 94 L Nasal Cannula 2 03/30/24 04:00 03/30/24 07:30 03/30/24 07:30 03/30/24 04:00 03/30/24 07:30 03/30/24 04:00 03/30/24 07:30 Narrative Exam PE: Gen: Well-developed and well-nourished. Elderly frail lady. HEENT: NCAT, PERRLA, EOMI, MMM, anicteric conjunctivae. CVS: normal S1 and S2. RRR. No M/R/G. Resp: Diffuse coarse lung sounds. Abd: soft, non-tender, non-distended. Illeostomy, signs of leaking. MSK: Good ROM in BUE & BLE. No edema or rash. Neuro: CN II-XII grossly intact. Strength 4/5 in BUE & BLE. Alert and oriented x3. Objective Labs 03/30/24 04:15 03/30/24 04:15 Labs: Laboratory Results - last 24 hr 03/30/24 04:15 WBC 15.6 H RBC 3.27 L Hgb 9.4 L Hct 30.3 L MCV 93 MCH 28.7 MCHC 31.0 RDW Std Deviation 56.5 H Plt Count 294 Neut % (Auto) 73 Lymph % (Auto) 17 [place] % (Auto) 5 Eos % (Auto) 4 Baso % (Auto) 0 Neut # (Auto) 11.4 H Lymph # (Auto) 2.6 [place] # (Auto) 0.8 Eos # (Auto) 0.7 H Baso # (Auto) 0.1 Immature Gran # (Auto) 0.13 H Absolute Nucleated RBC 0.00 Immature Gran % 1 H Nucleated RBC % 0 Sodium 138 Potassium 4.2 Chloride 104 Carbon Dioxide 27.2 Anion Gap 7 BUN 31 H Creatinine 1.4 H Estim Creat Clear Calc 31.0 L eGFR 38 L BUN/Creatinine Ratio 22 H Glucose 84 Calculated Osmolality 281 Calcium 8.6 Corrected Calcium 9.4 Phosphorus 2.4 Magnesium 1.3 L Total Bilirubin 0.4 AST 11 ALT 10 Alkaline Phosphatase 186 H Total Protein 5.9 Albumin 3.0 L Globulin 2.9 Albumin/Globulin Ratio 1.0 L ABG Interpretation ABG results: 03/21/24 05:40 ABG pH 7.35 ABG pCO2 41 ABG pO2 121 H ABG HCO3 23 ABG O2 Saturation 99 H ABG Base Excess -3 Quality Measures Quality Measures VTE prophylaxis and sepsis Current suspected stage: sepsis Possible source: skin/soft tissue Blood cultures ordered: yes Antibiotic ordered: Yes Advance care planning discussed with:: patient Assessment & Plan Assessment Current Active Medications: Generic Name Dose Route Start Last Admin Trade Name Freq PRN Reason Stop Dose Admin Acetaminophen 650 mg 03/21/24 05:19 Acetaminophen 325 Mg Tablet PO 04/20/24 05:18 Q6H PRN Fever >101.5 Albuterol/Ipratropium 3 ml 03/21/24 15:51 Albuterol/Ipratropium (Duoneb) Rt Tia 3 Ml Nebu INH 04/20/24 18:59 Q4HRRT PRN Shortness of breath Donepezil HCl 10 mg 03/21/24 21:00 03/29/24 20:23 Donepezil Hcl 5 Mg Tablet PO 04/20/24 20:59 10 mg HS ASHISH Administration Heparin Sodium (Porcine) 3,700 unit 03/21/24 17:43 03/21/24 20:09 Heparin Sod Inj 1000 Unit/Ml Vial 10 Ml INDWELLCAT 04/04/24 17:42 3,700 unit PRN PRN Administration DIALYSIS Heparin Sodium (Porcine) 5,000 unit 03/22/24 17:30 03/29/24 20:23 Heparin Sod Inj 5000 Unit/Ml Vial SC 04/05/24 17:29 5,000 unit Q12HR ASHISH Administration Hydralazine HCl 10 mg 03/21/24 15:45 Hydralazine Hcl 10 Mg Tablet PO 04/20/24 17:59 Q6HR PRN SBP>160 Albumin Human 25 gm in 100 mls @ 100 mls/min 03/21/24 10:54 Albuminar-25 Ivpb IV PRN PRN DIALYSIS Levetiracetam 750 mg 03/30/24 09:00 Levetiracetam Inj 100 Mg/Ml Vial 5ml IVP 04/29/24 08:59 Q12HR ASHISH Levothyroxine Sodium 112 mcg/ 137 mcg 03/21/24 07:30 03/30/24 05:59 Levothyroxine Sodium 25 mcg PO 04/20/24 07:29 137 mcg ACBR ASHISH Administration Loperamide HCl 10 mg 03/26/24 14:00 03/30/24 05:59 Loperamide 2 Mg Capsule PO 04/02/24 13:59 10 mg TID ASHISH Administration Lorazepam 2 mg 03/28/24 03:50 Lorazepam 2 Mg/Ml Vial IVP 04/02/24 03:46 Q15M PRN SEIZURES Memantine 10 mg 03/21/24 21:00 03/26/24 20:42 Memantine Hcl 5 Mg Tablet PO 04/20/24 20:59 10 mg BID ASHISH Administration Metoprolol Tartrate 25 mg 03/21/24 21:00 03/29/24 20:30 Metoprolol Tartrate 25 Mg Tablet PO 04/20/24 20:59 Not Given BID ASHISH Ondansetron HCl 4 mg 03/21/24 06:08 Ondansetron Inj 2 Mg/Ml Inj 2 Ml IV 04/20/24 06:07 Q6H PRN NAUSEA OR VOMITING Protocol Sodium Chloride 3 ml 03/21/24 08:25 Sodium Chloride Rt Tia 0.9% 3 Ml Nebu INH 04/20/24 08:24 PRN PRN SOLN Valproic Acid 500 mg 03/30/24 21:00 Valproic Acid Syrup 250 Mg/5 Ml Udc PO 04/29/24 20:59 HS ASHISH Plan 78 y/o F with PMHx significant for hypothyroidism, hypertension, JACKIE, asthma, depression, dementia, recurrent UTI, and is status post hemicolectomy with ileostomy admitted for acute uremic encephalopathy, stage III acute kidney injury, sepsis secondary to UTI versus intra-abdominal abscess. #Acute kidney injury-suspect patient in ischemic ATN Patient received 2 dialysis treatments and started to make good urine. Held dialysis. Creatinine improved. Continue with oral hydration. Patient clinically hypovolemic on exam: Difficulty with blood draws, dry mucous membranes, no edema. Kidney function continues to improve. -Avoid nephrotoxins -Renally dose medications -daily labs -Encourage oral hydration. #Sepsis, secondary to GI/UTI-on antibiotics plan of care discussed with primary team, Dr. Flynn #UTI, gram-negative rods #Electrolyte imbalances #Hypothyroidism #Hypertension #Depression #Dementia Management as per primary team. Thank you for allow me to participate in the care of this patient. Plan of care discussed with attending Dr. Rahman. Vadim Price MD PGY-1 Attending Provider Attestation/Addendum Patient seen and examined with resident physician Dr. Price. Note reviewed, agree with findings and recommendations. Renal function, electrolytes stable. Awaiting surgical intervention for ileostomy leak
--- NOTE | 2024-03-30 09:13 | PC.SS ---
Update: Discharge plan is for patient to return home with Home Health.
--- NOTE | 2024-03-30 15:03 | PC.SS ---
Rounding Note: Neurology consult is pending. Possible d/c tomorrow.
--- NOTE | 2024-03-30 15:42 | ESPR_ITS ---
<Statement entered by Lonnie Rick DO - 03/30/24 18:50> Senior attestation: Patient was examined and case was reviewed with team including attending physician. Note reviewed, I agree with most of its contents and agree with the patient's care. No seizure-like activity reported yesterday, overnight, or today. Will adjust keppra dose to 750mg BID following tele-neurology recommendations, will also consult in-house neurologist Dr. Brush for further recommendations. C difficile test has been ordered however not yet collected, remains pending. Anticipate discharge within 24-48 hours pending neurology recommendations and c diff test. Lonnie Rick DO PGY-3 Documentation for date of: 03/30/24 Subjective Subjective Interval history: Patient seen at bedside. No acute overnight events. She has no complaints, is saturating 94% on 2 L Patient has remained seizure-free for the past 72 hours, he still on Keppra- reduced to 750 mg twice daily. On labs today, WBC downtrending-15.6 today. BUN and creatinine at 31 and 1.4 respectively, suspect the patient does have a component of CKD. Pending C. difficile PCR and neurology evaluation. Exam Vital Signs Temp Pulse Resp BP Pulse Ox O2 Del Method O2 Flow Rate 99.4 F 84 22 H 98/65 96 Nasal Cannula 2 03/30/24 12:00 03/30/24 12:00 03/30/24 12:00 03/30/24 12:00 03/30/24 12:00 03/30/24 12:00 03/30/24 12:00 Narrative Exam GENERAL: AAOX3 NEURO: COUNSELING SPECIALIST grossly intact, moves extremities x4 HEENT: Dry mucosa. Eyes open, symmetrical, & clear CARDIO: No chest pain on palpation. Heart RRR, no obvious murmurs PULM: No noted coughing/dyspnea. Lungs CTA B/L GI: Abdomen soft, nondistended, no pain on palpation. Colostomy bag with content, no leak, mild cellulitis seen in surrounding area. BSx4 URO/DELIVERY MAN:: No further abnormalities noted. SKIN/MSK/EXT: No wounds/rashes/edema/amputations, no pain on palpation. Pedal pulses present B/L Objective Labs 03/31/24 08:20 03/31/24 04:45 Labs: Laboratory Results - last 24 hr 03/30/24 04:15 WBC 15.6 H RBC 3.27 L Hgb 9.4 L Hct 30.3 L MCV 93 MCH 28.7 MCHC 31.0 RDW Std Deviation 56.5 H Plt Count 294 Neut % (Auto) 73 Lymph % (Auto) 17 [place] % (Auto) 5 Eos % (Auto) 4 Baso % (Auto) 0 Neut # (Auto) 11.4 H Lymph # (Auto) 2.6 [place] # (Auto) 0.8 Eos # (Auto) 0.7 H Baso # (Auto) 0.1 Immature Gran # (Auto) 0.13 H Absolute Nucleated RBC 0.00 Immature Gran % 1 H Nucleated RBC % 0 Sodium 138 Potassium 4.2 Chloride 104 Carbon Dioxide 27.2 Anion Gap 7 BUN 31 H Creatinine 1.4 H Estim Creat Clear Calc 31.0 L eGFR 38 L BUN/Creatinine Ratio 22 H Glucose 84 Calculated Osmolality 281 Calcium 8.6 Corrected Calcium 9.4 Phosphorus 2.4 Magnesium 1.3 L Total Bilirubin 0.4 AST 11 ALT 10 Alkaline Phosphatase 186 H Total Protein 5.9 Albumin 3.0 L Globulin 2.9 Albumin/Globulin Ratio 1.0 L ABG Interpretation ABG results: 03/21/24 05:40 ABG pH 7.35 ABG pCO2 41 ABG pO2 121 H ABG HCO3 23 ABG O2 Saturation 99 H ABG Base Excess -3 Quality Measures Quality Measures VTE prophylaxis and sepsis Current suspected stage: sepsis Possible source: skin/soft tissue Blood cultures ordered: yes Antibiotic ordered: Yes Advance care planning discussed with:: patient Assessment & Plan Assessment Current Active Medications: Generic Name Dose Route Start Last Admin Trade Name Freq PRN Reason Stop Dose Admin Acetaminophen 650 mg 03/21/24 05:19 Acetaminophen 325 Mg Tablet PO 04/20/24 05:18 Q6H PRN Fever >101.5 Albuterol/Ipratropium 3 ml 03/21/24 15:51 Albuterol/Ipratropium (Duoneb) Rt Tia 3 Ml Nebu INH 04/20/24 18:59 Q4HRRT PRN Shortness of breath Donepezil HCl 10 mg 03/21/24 21:00 03/29/24 20:23 Donepezil Hcl 5 Mg Tablet PO 04/20/24 20:59 10 mg HS ASHISH Administration Heparin Sodium (Porcine) 3,700 unit 03/21/24 17:43 03/21/24 20:09 Heparin Sod Inj 1000 Unit/Ml Vial 10 Ml INDWELLCAT 04/04/24 17:42 3,700 unit PRN PRN Administration DIALYSIS Heparin Sodium (Porcine) 5,000 unit 03/22/24 17:30 03/30/24 08:55 Heparin Sod Inj 5000 Unit/Ml Vial SC 04/05/24 17:29 5,000 unit Q12HR ASHISH Administration Hydralazine HCl 10 mg 03/21/24 15:45 Hydralazine Hcl 10 Mg Tablet PO 04/20/24 17:59 Q6HR PRN SBP>160 Albumin Human 25 gm in 100 mls @ 100 mls/min 03/21/24 10:54 Albuminar-25 Ivpb IV PRN PRN DIALYSIS Levetiracetam 750 mg 03/30/24 09:00 03/30/24 08:55 Levetiracetam Inj 100 Mg/Ml Vial 5ml IVP 04/29/24 08:59 750 mg Q12HR ASHISH Administration Levothyroxine Sodium 112 mcg/ 137 mcg 03/21/24 07:30 03/30/24 05:59 Levothyroxine Sodium 25 mcg PO 04/20/24 07:29 137 mcg ACBR ASHISH Administration Loperamide HCl 10 mg 03/26/24 14:00 03/30/24 13:06 Loperamide 2 Mg Capsule PO 04/02/24 13:59 10 mg TID ASHISH Administration Lorazepam 2 mg 03/28/24 03:50 Lorazepam 2 Mg/Ml Vial IVP 04/02/24 03:46 Q15M PRN SEIZURES Memantine 10 mg 03/21/24 21:00 03/26/24 20:42 Memantine Hcl 5 Mg Tablet PO 04/20/24 20:59 10 mg BID ASHISH Administration Metoprolol Tartrate 25 mg 03/21/24 21:00 03/30/24 08:54 Metoprolol Tartrate 25 Mg Tablet PO 04/20/24 20:59 25 mg BID ASHISH Administration Ondansetron HCl 4 mg 03/21/24 06:08 Ondansetron Inj 2 Mg/Ml Inj 2 Ml IV 04/20/24 06:07 Q6H PRN NAUSEA OR VOMITING Protocol Sodium Chloride 3 ml 03/21/24 08:25 Sodium Chloride Rt Tia 0.9% 3 Ml Nebu INH 04/20/24 08:24 PRN PRN SOLN Valproic Acid 500 mg 03/30/24 21:00 Valproic Acid Syrup 250 Mg/5 Ml Udc PO 04/29/24 20:59 HS [facility] Plan Summary: The patient is a 78-year-old female with a past medical history of hypothyroidism, hypertension, JACKIE, asthma, depression, dementia, recurrent UTI, and is status post hemicolectomy with ileostomy admitted for acute uremic encephalopathy, stage III acute kidney injury, sepsis secondary to UTI versus intra-abdominal abscess. #?New onset seizures Patient had a rapid response called on 03/26 night for shakiness and blank staring. Had left-sided weakness which has resolved. Teleneuro was consulted, stroke alert was called. CT head and CTA negative for any acute findings. 03/30/2024- Patient has remained seizure-free in the last 72 hours, reducing Keppra to 750mg twice daily Plan -CT Keppra 1000mg bid -Seizure precautions -Holding memantine -Consulted teleneuro, appreciate recommendations #Acute encephalopathy uremic vs infections #Acute kidney injury #Increased ileostomy output Decreased p.o. intake in the last 2 to 3 days with nausea and vomiting and presence of ileostomy, thus likely prerenal. However, given extensive elevation in creatinine and drop in GFR other etiologies cannot be excluded. Initial creatinine 9.5 (BL 1.0), BUN 121. Will have received total of 3.5 L of IVF. On admission, patient was noted to have hyperkalemia, increased BUN and creatinine of up to 9.5 as well as hyperphosphatemia. UA was positive for UTI, CT abdomen pelvis showed some suspicion for intra-abdominal abscess. The patient was given 3.5 L of NS and 1 dose of ceftriaxone and admitted for management of sepsis secondary to UTI versus intra-abdominal abscess. On review today, patient's potassium was found to be 6.6 and she was started on a hyperkalemic protocol-5 units of insulin, D50 and given 800 mg of sevelamer. Clinically, she no longer has episodes of vomiting or nausea and mentation is back to baseline. Nephrology was consulted for urgent hemodialysis. BUN and creatinine still showing significant improvement, creatinine is 1.2 today, GFR 46 Patient having increased output from ileostomy, Pending CT with contrast of abdomen prior to possible ileostomy reversal by general surgeon Dr. Flynn. 03/30/2024- BUN and creatinine at 31 and 1.4 respectively, suspect the patient does have a component of CKD. Pending C. difficile PCR. Patient is still on loperamide 10 mg 3 times daily for increased ileostomy Plan: -CT Loperamide 10mg TID -Encourage increased oral intake -Continue to monitor CMP -Avoid nephrotoxins -Renally dose medications -Consulted general surgery appreciate recommendations -Consulted nephrology, appreciate recommendations #Sepsis, secondary to #E.Coli UTI #Possible intra-abdominal abscess #History of recurrent UTI CT A/P prelim report shows possible intra-abdominal abscess. Patient reports dysuria and cloudy urine, noted to have recurrent UTIs. Most recent urine cultures positive for E. coli, pansensitive. WBC on admission-20.9 Additionally, patient is on IV Zosyn for sepsis management. General surgeon Dr. Flynn consulted, recommends to continue wound care Patient was evaluated by the general surgeon Dr. Flynn who is considering takedown of the ileostomy following a CT scan with contrast which will be done when renal function is much better. For this reason, we will leave the TDC in for possible dialysis postcontrast CT. CT to be done on Wednesday Otherwise, patient is still on ceftriaxone and metronidazole. 03/30/2024- On labs today, WBC downtrending-15.6 today. No fevers overnight, vitals stable Plan: ?General Surgeon Dr. Flynn consulted, following recommendations -Referred to wound care -Continue to monitor CBC #Electrolyte imbalances #Hyponatremia-resolved #Hyperkalemia-resolved #Hypochloremia-resolved #Hypocalcemia-resolved #Hyperphosphatemia-resolved #Hypomagnesemia-resolved -Hyperkalemic protocol initiated with 5 units of insulin, D50 and sevelamer as well as albuterol on admission. -Urgent dialysis indicated on admission, patient had temporary catheter placement. -Holding dialysis for now as renal function is improving Plan: ? Nephrology consulted, following recommendations ? Continue to monitor CMP #History of hypothyroidism Plan ? Resume home medication levothyroxine 125 mcg before breakfast #History of hypertension Plan ? Resume home med- Metoprolol tartrate 25mg BID -Hydralazine 10mg Q6HR PRN for SBP >160 #History of depression #History of dementia #History of bipolar disorder #History of anxiety Plan ? Resume home medications donepezil and memantine -Resumed home valproate 500mg (10ml) at bedtime #History of obstructive sleep apnea Plan ? CPAP at bedtime as needed #History of asthma Plan ? DuoNebs every 4 hours breathing treatment as needed DVT prophylaxis: Subcutaneous heparin GI prophylaxis: Not indicated Diet: Dysphagia 1?pur?ed Lines: Peripheral IV Code status: Full code Case was discussed with senior resident Dr Rick and attending physician, Dr Maru Guerrero MD PGY-1 Attending Provider Attestation/Addendum I have discussed and was present for the essential components of the history, physical examination, diagnosis, and treatment plan with the resident. I agree with the patient's care as documented by the resident and amended herein by me. Casey Mahoney DO. Although this document has been carefully reviewed, there may still be some phonetic and other typographical errors. These errors are purely grammatical due to imperfections in the software program and should not be construed in any way to compromise the substance of the patient's medical care during this visit.
[2024-03-30] MEDS: DONEPEZIL HCL 5 MG TABLET 10 MG PO (21:06)
[2024-03-30] MEDS: VALPROIC ACID SYRUP 250 MG/5 ML UDC 500 MG PO (21:06)
--- NOTE | 2024-03-30 23:46 | PD.NEUROPROG ---
Documentation for date of: 03/30/24 Subjective Subjective Interval history: Patient was seen in telemetry today. No new symptoms reported. She is tolerating oral pur?ed diet. Exam - Neurology Vital Signs Temp Pulse Resp BP Pulse Ox O2 Del Method O2 Flow Rate 97.8 F 87 21 H 96/58 L 92 L Nasal Cannula 2 03/30/24 20:00 03/30/24 22:31 03/30/24 20:00 03/30/24 21:06 03/30/24 20:00 03/30/24 20:00 03/30/24 20:00 Narrative Exam GENERAL APPEARANCE: Well developed, well-nourished in no acute distress. HEENT: Normocephalic, atraumatic, extraocular movements intact. Pupils: Equal reacting to light NECK: Supple, no JVD or bruits. CARDIOVASULAR: Heart: S1, S2 heard, regular without S3-S4 or murmur no rubs or gallops. LUNGS/CHEST: Clear to auscultation bilaterally. No rails, rhonchi, or wheezing. Normal inspection. ABDOMEN: Soft, nontender, with normal bowel sounds. No pulsatile masses. No rebound, rigidity, or guarding. Normal inspection and palpation. EXTREMITIES: Normal inspection and palpation. No edema, clubbing or cyanosis. SKIN: Warm and dry without rashes. Normal inspection. MUSCULOSKELETAL: No cervical, thoracic, lumbar or midline bony tenderness. Normal inspection. NEURO: Alert, awake and oriented x3. Cranial nerves: II through XII grossly intact. Speech and language: Normal with no dysarthria or dysphasia. Motor system: Tone and bulk: Normal: Strength: Moves all 4 extremities; No pronator drift noted. Deep tendon reflexes: 2+ bilaterally symmetrical. Plantar reflex: Downgoing bilaterally. Sensory system: Intact to all modalities of sensation bilaterally. Coordination: Intact to [id number] and [id number]-aynj-wrki test bilaterally. No ataxia, no dysmetria, or dysdiadochokinesia noted. No intention tremors noted. Gait: Not tested. No signs of meningeal irritation noted. PSYCHIATRIC: Normal mood and affect. Objective Labs 03/30/24 04:15 03/30/24 04:15 Labs: Laboratory Results - last 24 hr 03/30/24 04:15 WBC 15.6 H RBC 3.27 L Hgb 9.4 L Hct 30.3 L MCV 93 MCH 28.7 MCHC 31.0 RDW Std Deviation 56.5 H Plt Count 294 Neut % (Auto) 73 Lymph % (Auto) 17 [place] % (Auto) 5 Eos % (Auto) 4 Baso % (Auto) 0 Neut # (Auto) 11.4 H Lymph # (Auto) 2.6 [place] # (Auto) 0.8 Eos # (Auto) 0.7 H Baso # (Auto) 0.1 Immature Gran # (Auto) 0.13 H Absolute Nucleated RBC 0.00 Immature Gran % 1 H Nucleated RBC % 0 Sodium 138 Potassium 4.2 Chloride 104 Carbon Dioxide 27.2 Anion Gap 7 BUN 31 H Creatinine 1.4 H Estim Creat Clear Calc 31.0 L eGFR 38 L BUN/Creatinine Ratio 22 H Glucose 84 Calculated Osmolality 281 Calcium 8.6 Corrected Calcium 9.4 Phosphorus 2.4 Magnesium 1.3 L Total Bilirubin 0.4 AST 11 ALT 10 Alkaline Phosphatase 186 H Total Protein 5.9 Albumin 3.0 L Globulin 2.9 Albumin/Globulin Ratio 1.0 L ABG Interpretation ABG results: 03/21/24 05:40 ABG pH 7.35 ABG pCO2 41 ABG pO2 121 H ABG HCO3 23 ABG O2 Saturation 99 H ABG Base Excess -3 Assessment & Plan Assessment and plan (1) New onset seizure: Status: Acute Assessment and plan: Most likely secondary to metabolic encephalopathy: Sepsis, urinary tract infection from E. coli, dehydration, acute kidney injury, hyponatremia. Patient reportedly had seizure-like activity followed by possible left-sided weakness on 03/26/2024. She was last known normal around 9:30 PM. The semiology of the event was described as bilateral jerking of her arms with a blank stare for about 2 minutes before resolving. Afterwards, she was confused and noted to have possible left-sided weakness by staff. No recurrent episodes reported by the staff. However I noticed some abnormal movements involving the left upper extremity with loss of awareness intermittently during the interview and exam today. (Could be focal seizures with loss of awareness/also called complex partial seizures) Even though the EEG was negative for epileptiform discharges and MRI brain showed only chronic prominent microvascular ischemic changes without any acute infarction, will continue with AED but increase Depakote to 500 mg twice a day in place of Keppra for better side effect profile. Noted her kidney function is low and liver enzymes are normal. Liver ultrasound showed fatty infiltration but no other liver lesions.
[2024-03-31] VITALS (12 sets, daily range): BP systolic 104–145; BP diastolic 52–68; PULSE 73–101; RESP 15–24; TEMP 36.1–36.6; O2SAT 88–99; BMI 25.0
[2024-03-31] MEDS: LEVOTHYROXINE SODIUM 112 MCG, LEVOTHYROXINE SODIUM 25 MCG 137 MCG PO (05:21)
[2024-03-31] MEDS: LOPERAMIDE 2 MG CAPSULE 10 MG PO ×3 (05:21→21:42)
[2024-03-31 06:46] LABS: Phosphorous 2.2 mg/dL (2.4-5.1)
[2024-03-31 07:23] LABS: Alanine Aminotransferase 9 U/L (10-49); Albumin, Serum 3.2 gm/dL (3.4-4.8); Alkaline Phosphatase 203 U/L (46-116); Anion Gap 12 (7-16); Aspartate Amino Transferase 21 U/L (0-34); BUN/Creatinine Ratio 31 Ratio (12-20); Blood Urea Nitrogen 37 mg/dL (9-23); Calcium 8.7 mg/dL (8.3-10.6); Calcium (Corrected) 9.3 mg/dL (8.5-10.1); Carbon Dioxide 20.9 mMol/L (20.0-31.0); Chloride 104 mMol/L (98-107); Creatinine (Component) 1.2 mg/dL (0.6-1.3); Globulin 3.1 gm/dL (2.3-3.5); Glucose 68 mg/dL (74-106); Osmolality,Calculated 280 (275-295); Potassium 5.3 mMol/L (3.4-5.1); Sodium 137 mMol/L (136-145); Total Protein 6.3 gm/dL (5.7-8.2); eGFR 46 See Note
[2024-03-31 08:38] LABS: Basophils # (Auto) 0.1 Thou/mm3 (0.0-0.2); Basophils % (Auto) 0 % (0-2.5); Eosinophils # (Auto) 0.5 Thou/mm3 (0.0-0.5); Eosinophils % (Auto) 3 % (0-10); Hematocrit 30.4 % (36.0-46.0); Hemoglobin 9.7 g/dL (12.0-16.0); Immature Granulocytes % (Auto) 1 % (0-0); Immature Granulocytes Auto 0.15 Thou/mm3 (0.00-0.00); Lymphocytes # (Auto) 3.6 Thou/mm3 (1.0-4.8); Lymphocytes % (Auto) 18 % (10-50); Mean Corpuscular HGB Conc 31.9 g/dl (31.0-37.0); Mean Corpuscular Hemoglobin 28.9 pg (25.0-35.0); Mean Corpuscular Volume 91 fL (80-100); Monocytes # (Auto) 1.2 Thou/mm3 (0.0-0.8); Monocytes % (Auto) 6 % (0-12); Neutrophils # (Auto) 14.3 Thou/mm3 (1.8-7.7); Neutrophils % (Auto) 72 % (37-80); Nucleated Red Blood Cell % 0 /100 WBC (0); Platelet Count 380 Thou/mm3 (140-440); RDW Standard Deviation 54.1 fL (36.4-46.3); Red Blood Count 3.36 Miln/mm3 (4.00-5.20); White Blood Count 19.8 Thou/mm3 (3.6-11.0)
--- NOTE | 2024-03-31 08:38 | CHAP ---
Patient seemed to express gratitude for prayer and visit.
[2024-03-31 09:36] LABS: Clostridium Difficile PCR Negative (Negative)
[2024-03-31] MEDS: METOPROLOL TARTRATE 25 MG TABLET PO ×2 (09:41→21:46)
[2024-03-31] MEDS: Magnesium Sulfate 4 GM Ivpb 4 GM/50 ML BAG IV (09:41)
[2024-03-31] MEDS: HYDROcodone/APAP 5/325 TABLET 1 TAB PO (09:41)
[2024-03-31] MEDS: NAPH,KPH MBDB 1 PACKET (1.5 GM) PO (09:41)
[2024-03-31] MEDS: VALPROIC ACID SYRUP 250 MG/5 ML UDC 500 MG PO ×2 (09:42→21:42)
[2024-03-31] MEDS: HEPARIN SOD INJ 5000 UNIT/ML VIAL SC ×2 (09:51→21:42)
--- NOTE | 2024-03-31 11:14 | ESPR_ITS ---
Documentation for date of: 03/31/24 Subjective Subjective Interval history: 78 y/o F with PMHx significant for hypothyroidism, hypertension, JACKIE, asthma, depression, dementia, recurrent UTI, and is status post hemicolectomy with ileostomy presents with altered mental status and nausea and vomiting. Patient initially presented to ED with altered mentation and was not able to provide history. Subsequently given 2.5 L of fluids per sepsis protocol and mentation slowly improved. Upon evaluation, patient endorsed 2 to 3 days of nausea and vomiting along with decreased p.o. intake. Also endorses abdominal pain at ileostomy site, decreased ileostomy output, as well as dysuria and cloudy urine but denies fever or chills. Otherwise also denies shortness of breath or chest discomfort. Of note, patient recently discharged on 02/15 for ileostomy leakage/malfunction. CT head unremarkable. CT A/P showed Soft tissue mass in the anterior abdominal wall 2.8 x 2.2 cm and aggregate of small bowel versus abscess in the right lower abdomen poorly defined, at least 4 cm in dimension. Patient recieved IVF, magnesisum, zosyn and rocephin in ED. Labs showed sodium 125, potassium 6.6, BUN 134, Tourist Adviser 9.3, eGFR 4, Corrected Ca 8.3, phos 10.7, Mg 1.1. Patient has no known history CKD. On exam patient was lethargic but responsive, followed commands, A&Ox3. Appears euvolemic. Nephrology consulted for acute renal failure, plan for emergent dialysis. 03/22: Patient seen and examined in bed. Patient remains lethargic. Signs of leaking around ileostomy bag. Labs significantly improved after dialysis session yesterday. Sodium 129, potassium 4.1, bicarb 25.4, BUN 62, creatinine 2.6, eGFR 12. Plan for dialysis today. Prelim urine culture positive for gram- negative rods. Patient currently on Zosyn. 03/23: Patient seen and examined in bed. Patient is somewhat lethargic but improved from before. Sodium 135, potassium 3.7, bicarb 28.7, BUN 35, creatinine 2.2, eGFR 22. Will give 1 L normal saline at 70 mL/h and 40 mEq potassium p.o. No plans for dialysis today. 03/24/2024 patient currently seen in telemetry. More alert and awake. Patient has more than a liter of urine output although 1800 colostomy losses. Blood pressure 144/62, heart rate 83. WBC 12.8, hemoglobin 9.1, platelets 329. Sodium 139, potassium 4.2, BUN 43, creatinine 2.1, phosphorus 2.2, magnesium 1.7 Primary team wanted to do CT abdomen with contrast. Dr. Flynn suggested can hold CT with contrast for 1 to 2 days. 1 L IV fluids given. Will monitor renal function closely. No need for dialysis today. However to for the weekend will leave Vas-Cath. 03/31/2024 patient currently seen in medical floor. Resting comfortably. Still having significant colostomy losses. CT abdomen with contrast results reviewed. Labs, medications reviewed. Patient feeling much better. Encouraged encourage p.o. fluids. Dialysis catheter was removed. Still leaking around the colostomy site. Surgeon on the case. Review of Systems Review of Systems Narrative Review of Systems: CONSTITUTIONAL: Patient denies any fever, chills. Patient feeling much better HEENT: Denies any visual disturbances or hearing problems. CARDIOVASCULAR: Patient denies any chest pain, shortness of breath, swelling in the lower extremities. PULMONARY: Patient denies any shortness of breath, cough. GASTROINTESTINAL: patient complaining of discomfort around the colostomy site. Leakage noted. GENITOURINARY: Patient denies any urinary symptoms of burning or frequency or hematuria, denies any form in the urine. SKIN: Denies any rash. MUSCULOSKELETAL: Gait imbalance NEUROLOGICAL: Denies any neurological problems of strokes, seizures or confusion. Denies any memory problems. Exam Vital Signs Temp Pulse Resp BP Pulse Ox O2 Del Method O2 Flow Rate 36.3 C 91 21 H 121/62 94 L Nasal Cannula 3 03/31/24 08:00 03/31/24 09:41 03/31/24 08:00 03/31/24 09:41 03/31/24 08:00 03/31/24 08:00 03/31/24 08:00 Narrative Exam PE: Gen: Well-developed and well-nourished. Elderly frail lady. HEENT: NCAT, PERRLA, EOMI, MMM, anicteric conjunctivae. CVS: normal S1 and S2. RRR. No M/R/G. Resp: Diffuse coarse lung sounds. Abd: soft, non-tender, non-distended. Illeostomy, signs of leaking. MSK: Good ROM in BUE & BLE. No edema or rash. Neuro: CN II-XII grossly intact. Strength 4/5 in BUE & BLE. Alert and oriented x3. Objective Labs 03/31/24 08:20 03/31/24 04:45 Labs: Laboratory Results - last 24 hr 03/28/24 03/31/24 03/31/24 15:20 04:45 08:20 WBC 19.8 H RBC 3.36 L Hgb 9.7 L Hct 30.4 L MCV 91 MCH 28.9 MCHC 31.9 RDW Std Deviation 54.1 H Plt Count 380 D Neut % (Auto) 72 Lymph % (Auto) 18 [place] % (Auto) 6 Eos % (Auto) 3 Baso % (Auto) 0 Neut # (Auto) 14.3 H Lymph # (Auto) 3.6 [place] # (Auto) 1.2 H Eos # (Auto) 0.5 Baso # (Auto) 0.1 Immature Gran # (Auto) 0.15 H Absolute Nucleated RBC 0.00 Immature Gran % 1 H Nucleated RBC % 0 Sodium 137 Potassium 5.3 H D Chloride 104 Carbon Dioxide 20.9 Anion Gap 12 BUN 37 H Creatinine 1.2 Estim Creat Clear Calc 36.0 L eGFR 46 L BUN/Creatinine Ratio 31 H Glucose 68 L Calculated Osmolality 280 Calcium 8.7 Corrected Calcium 9.3 Phosphorus 2.2 L AST 21 ALT 9 L Alkaline Phosphatase 203 H Total Protein 6.3 Albumin 3.2 L Globulin 3.1 Albumin/Globulin Ratio 1.0 L Stl C. diff Tox B Gene Negative ABG Interpretation ABG results: 03/21/24 05:40 ABG pH 7.35 ABG pCO2 41 ABG pO2 121 H ABG HCO3 23 ABG O2 Saturation 99 H ABG Base Excess -3 Assessment & Plan Assessment and plan (1) New onset seizure: Status: Acute Additional Assessment & Plan Additional Plan: 78 y/o F with PMHx significant for hypothyroidism, hypertension, JACKIE, asthma, depression, dementia, recurrent UTI, and is status post hemicolectomy with ileostomy admitted for acute uremic encephalopathy, stage III acute kidney injury, sepsis secondary to UTI versus intra-abdominal abscess. #Acute kidney injury-suspect patient in ischemic ATN Patient received 2 dialysis treatments and started to make good urine. Held dialysis. Creatinine improved.-s/p CT abdomen with IV contrast . Continue with oral hydration. Dialysis catheter removed. -Avoid nephrotoxins -Renally dose medications -daily labs #Sepsis, secondary to GI/UTI-on antibiotics.. plan of care discussed with primary team, Dr. Flynn-pending surgical intervention for leaking ileostomy #UTI, gram-negative rods #Electrolyte imbalances #Hypothyroidism #Hypertension #Depression #Dementia Management as per primary team. Quality - progress note Quality Measures Quality Measures: VTE prophylaxis Reason for Continued Stay Reason for Continued Stay: further monitoring
--- NOTE | 2024-03-31 11:29 | ESPR_ITS ---
<Statement entered by Lonnie Rick DO - 03/31/24 20:20> Senior attestation: Patient was examined and case was reviewed with team including attending physician. Note reviewed, I agree with most of its contents and agree with the patient's care. WBC noted to uptrend today, patient also appeared more lethargic this morning. Will repeat blood cultures and CT abdomen, which revealed fluid collection. General surgeon Dr. Flynn updated, will evaluate patient on 04/01 for possible drainage if possible. Patient has been started in IV zosyn to cover for possible abdominal infections/abscess. Neurology following, advised depakote dose adjustment instead of keppra. Lonnie Rick DO PGY-3 Documentation for date of: 03/31/24 Subjective Subjective Interval history: Patient seen at bedside. No acute overnight events. She complains of 4/10 pain in her abdomen and gluteal region. Stool C. diff returned negative. Labs significant for uptrending WBC, 19.8 today. No fevers overnight, vitals have been stable. Repeated blood cultures and CT abdomen to evaluate any source of infection. Showed a similar fluid collection as the previous CT but larger, consulted general surgeon Dr. Flynn who will evaluate tomorrow and possibly drain at bedside if possible. In the interim, will restart patient on IV Zosyn. Patient was evaluated by Neurologist Dr Brush yesterday, who suspects that patient might have complex partial seizures and recommended doubling valproate dose in place of Keppra due to better side effect profile. Will continue to monitor CBC and follow up with new cultures as well as imaging. 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 Eyes open, symmetrical, & clear CARDIO: No chest pain on palpation. Heart RRR, no obvious murmurs PULM: No noted coughing/dyspnea. Lungs CTA B/L GI: Abdomen soft, nondistended, mildly tender to palpation at umbilical region. Colostomy bag with content, no leak, mild cellulitis seen in surrounding area. BSx4 URO/COMIC ARTIST:: No further abnormalities noted. SKIN/MSK/EXT: No wounds/rashes/edema/amputations, no pain on palpation. Pedal pulses present B/L Objective Labs 03/31/24 08:20 03/31/24 04:45 Labs: Laboratory Results - last 24 hr 03/28/24 03/31/24 03/31/24 15:20 04:45 08:20 WBC 19.8 H RBC 3.36 L Hgb 9.7 L Hct 30.4 L MCV 91 MCH 28.9 MCHC 31.9 RDW Std Deviation 54.1 H Plt Count 380 D Neut % (Auto) 72 Lymph % (Auto) 18 [place] % (Auto) 6 Eos % (Auto) 3 Baso % (Auto) 0 Neut # (Auto) 14.3 H Lymph # (Auto) 3.6 [place] # (Auto) 1.2 H Eos # (Auto) 0.5 Baso # (Auto) 0.1 Immature Gran # (Auto) 0.15 H Absolute Nucleated RBC 0.00 Immature Gran % 1 H Nucleated RBC % 0 Sodium 137 Potassium 5.3 H D Chloride 104 Carbon Dioxide 20.9 Anion Gap 12 BUN 37 H Creatinine 1.2 Estim Creat Clear Calc 36.0 L eGFR 46 L BUN/Creatinine Ratio 31 H Glucose 68 L Calculated Osmolality 280 Calcium 8.7 Corrected Calcium 9.3 Phosphorus 2.2 L AST 21 ALT 9 L Alkaline Phosphatase 203 H Total Protein 6.3 Albumin 3.2 L Globulin 3.1 Albumin/Globulin Ratio 1.0 L Stl C. diff Tox B Gene Negative ABG Interpretation ABG results: 03/21/24 05:40 ABG pH 7.35 ABG pCO2 41 ABG pO2 121 H ABG HCO3 23 ABG O2 Saturation 99 H ABG Base Excess -3 Quality Measures Quality Measures VTE prophylaxis and sepsis Current suspected stage: sepsis Possible source: skin/soft tissue Blood cultures ordered: yes Antibiotic ordered: Yes Advance care planning discussed with:: patient Assessment & Plan Assessment Current Active Medications: Generic Name Dose Route Start Last Admin Trade Name Freq PRN Reason Stop Dose Admin Acetaminophen 650 mg 03/21/24 05:19 Acetaminophen 325 Mg Tablet PO 04/20/24 05:18 Q6H PRN Fever >101.5 Albuterol/Ipratropium 3 ml 03/21/24 15:51 Albuterol/Ipratropium (Duoneb) Rt Tia 3 Ml Nebu INH 04/20/24 18:59 Q4HRRT PRN Shortness of breath Dextrose 25 ml 03/31/24 09:56 Dextrose 50%-Water Inj 50 Ml Syringe IV 04/30/24 09:55 Q15MIN PRN BG 50-70 responsive npo pt Dextrose 50 ml 03/31/24 09:56 Dextrose 50%-Water Inj 50 Ml Syringe IV 04/30/24 09:55 Q15MIN PRN BG <50 OR BG <70 & pt unresponsive Donepezil HCl 10 mg 03/21/24 21:00 03/30/24 21:06 Donepezil Hcl 5 Mg Tablet PO 04/20/24 20:59 10 mg HS ASHISH Administration Glucagon 1 mg 03/31/24 09:56 Glucagon Inj 1 Mg Vial IM Q15MIN PRN BG <70, and no IV access Heparin Sodium (Porcine) 3,700 unit 03/21/24 17:43 03/21/24 20:09 Heparin Sod Inj 1000 Unit/Ml Vial 10 Ml INDWELLCAT 04/04/24 17:42 3,700 unit PRN PRN Administration DIALYSIS Heparin Sodium (Porcine) 5,000 unit 03/22/24 17:30 03/31/24 09:51 Heparin Sod Inj 5000 Unit/Ml Vial SC 04/05/24 17:29 5,000 unit Q12HR ASHISH Administration Hydralazine HCl 10 mg 03/21/24 15:45 Hydralazine Hcl 10 Mg Tablet PO 04/20/24 17:59 Q6HR PRN SBP>160 Albumin Human 25 gm in 100 mls @ 100 mls/min 03/21/24 10:54 Albuminar-25 Ivpb IV PRN PRN DIALYSIS Magnesium Sulfate 4 gm in 50 mls @ 12.5 mls/hr 03/31/24 07:55 03/31/24 09:41 Magnesium Sulfate Ivpb IV 03/31/24 11:54 12.5 mls/hr X1 ONE Administration Levothyroxine Sodium 112 mcg/ 137 mcg 03/21/24 07:30 03/31/24 05:21 Levothyroxine Sodium 25 mcg PO 04/20/24 07:29 137 mcg ACBR ASHISH Administration Loperamide HCl 10 mg 03/26/24 14:00 03/31/24 05:21 Loperamide 2 Mg Capsule PO 04/02/24 13:59 10 mg TID ASHISH Administration Lorazepam 2 mg 03/28/24 03:50 Lorazepam 2 Mg/Ml Vial IVP 04/02/24 03:46 Q15M PRN SEIZURES Memantine 10 mg 03/21/24 21:00 03/26/24 20:42 Memantine Hcl 5 Mg Tablet PO 04/20/24 20:59 10 mg BID ASHISH Administration Metoprolol Tartrate 25 mg 03/21/24 21:00 03/31/24 09:41 Metoprolol Tartrate 25 Mg Tablet PO 04/20/24 20:59 25 mg BID ASHISH Administration Ondansetron HCl 4 mg 03/21/24 06:08 Ondansetron Inj 2 Mg/Ml Inj 2 Ml IV 04/20/24 06:07 Q6H PRN NAUSEA OR VOMITING Protocol Sodium Chloride 3 ml 03/21/24 08:25 Sodium Chloride Rt Tia 0.9% 3 Ml Nebu INH 04/20/24 08:24 PRN PRN SOLN Valproic Acid 500 mg 03/31/24 09:00 03/31/24 09:42 Valproic Acid Syrup 250 Mg/5 Ml Udc PO 04/30/24 08:59 500 mg BID ASHISH Administration Plan Summary: The patient is a 78-year-old female with a past medical history of hypothyroidism, hypertension, JACKIE, asthma, depression, dementia, recurrent UTI, and is status post hemicolectomy with ileostomy admitted for acute uremic encephalopathy, stage III acute kidney injury, sepsis secondary to UTI versus intra-abdominal abscess. #Sepsis, secondary to #E.Coli UTI-treated #Possible intra-abdominal abscess- ruled out #History of recurrent UTI CT A/P prelim report shows possible intra-abdominal abscess. Patient reports dysuria and cloudy urine, noted to have recurrent UTIs. Most recent urine cultures positive for E. coli, pansensitive. WBC on admission-20.9 Additionally, patient is on IV Zosyn for sepsis management. General surgeon Dr. Flynn consulted, recommends to continue wound care Patient was evaluated by the general surgeon Dr. Flynn who is considering takedown of the ileostomy following a CT scan with contrast which will be done when renal function is much better. For this reason, we will leave the TDC in for possible dialysis postcontrast CT. CT to be done on Wednesday Otherwise, patient is still on ceftriaxone and metronidazole. 03/30/2024- On labs today, WBC uptrending- 19.8 today. No fevers overnight, vitals have been stable. Repeated blood cultures and CT abdomen to evaluate any source of infection. Showed a similar fluid collection as the previous CT but larger, consulted general surgeon Dr. Flynn who will evaluate tomorrow and possibly drain at bedside if possible. In the interim, will restart patient on IV Zosyn. Plan: -Repeat blood culture -Commence IV Zosyn ?General Surgeon Dr. Flynn consulted, following recommendations-possible drain tomorrow at bedside after evaluation. 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 Had left-sided weakness which has resolved. Teleneuro was consulted, stroke alert was called. CT head and CTA negative for any acute findings. 03/30/2024- Patient was evaluated by Neurologist Dr Brush yesterday, who suspects that patient might have complex partial seizures and recommended doubling valproate dose in place of Keppra due to better side effect profile. Plan -DC Keppra 1000mg bid -Increase Valproate to 500mg twice daily -Seizure precautions -Holding memantine -Neurology consulted, appreciate recommendations #Acute encephalopathy uremic vs infections-resolved #Acute kidney injury-resolved #Increased ileostomy output Decreased p.o. intake in the last 2 to 3 days with nausea and vomiting and presence of ileostomy, thus likely prerenal. However, given extensive elevation in creatinine and drop in GFR other etiologies cannot be excluded. Initial creatinine 9.5 (BL 1.0), BUN 121. Will have received total of 3.5 L of IVF. On admission, patient was noted to have hyperkalemia, increased BUN and creatinine of up to 9.5 as well as hyperphosphatemia. UA was positive for UTI, CT abdomen pelvis showed some suspicion for intra-abdominal abscess. The patient was given 3.5 L of NS and 1 dose of ceftriaxone and admitted for management of sepsis secondary to UTI versus intra-abdominal abscess. On review today, patient's potassium was found to be 6.6 and she was started on a hyperkalemic protocol-5 units of insulin, D50 and given 800 mg of sevelamer. Clinically, she no longer has episodes of vomiting or nausea and mentation is back to baseline. Nephrology was consulted for urgent hemodialysis. BUN and creatinine still showing significant improvement, creatinine is 1.2 today, GFR 46 Patient having increased output from ileostomy, Pending CT with contrast of abdomen prior to possible ileostomy reversal by general surgeon Dr. Flynn. 03/30/2024- BUN and creatinine at 37 and 1.2 .Stool C.diff negative Plan: -CT Loperamide 10mg TID -Encourage increased oral intake -Continue to monitor CMP -Avoid nephrotoxins -Renally dose medications -Consulted general surgery appreciate recommendations -Consulted nephrology, appreciate recommendations #Electrolyte imbalances #Hyponatremia-resolved #Hyperkalemia-resolved #Hypochloremia-resolved #Hypocalcemia-resolved #Hyperphosphatemia-resolved #Hypomagnesemia-resolved -Hyperkalemic protocol initiated with 5 units of insulin, D50 and sevelamer as well as albuterol on admission. -Urgent dialysis indicated on admission, patient had temporary catheter placement. -Holding dialysis for now as renal function is improving Plan: ? Nephrology consulted, following recommendations ? Continue to monitor CMP #History of hypothyroidism Plan ? Resume home medication levothyroxine 125 mcg before breakfast #History of hypertension Plan ? Resume home med- Metoprolol tartrate 25mg BID -Hydralazine 10mg Q6HR PRN for SBP >160 #History of depression #History of dementia #History of bipolar disorder #History of anxiety Plan ? Resume home medications donepezil and memantine -Resumed home valproate 500mg (10ml) at bedtime #History of obstructive sleep apnea Plan ? CPAP at bedtime as needed #History of asthma Plan ? DuoNebs every 4 hours breathing treatment as needed DVT prophylaxis: Subcutaneous heparin GI prophylaxis: Not indicated Diet: Dysphagia 1?pur?ed Lines: Peripheral IV Code status: Full code Case was discussed with senior resident Dr Rick and attending physician, Dr Maru Guerrero MD PGY-1 Attending Provider Attestation/Addendum I have discussed and was present for the essential components of the history, physical examination, diagnosis, and treatment plan with the resident. I agree with the patient's care as documented by the resident and amended herein by me. Casey Mahoney DO. Patient seen and evaluated this AM. Patient has increased somnolence this morning despite the fact she states she slept all night. Vital signs stable, patient afebrile, presently on nasal cannula 2 L, SpO2 92%. WBC has elevated to 19, potassium 5.3 today, BUN 37, creatinine 1.2. Considering the patient's somnolence and elevated WBC, I will repeat the CT scan of her belly, draw blood cultures today, replete her electrolytes, we did send for C. difficile yesterday considering copious ostomy output however was negative. The output is also much improved with the patient's loperamide. Patient's antibiotics were stopped several days ago, will hold for now, will continue to monitor closely. Although this document has been carefully reviewed, there may still be some phonetic and other typographical errors. These errors are purely grammatical due to imperfections in the software program and should not be construed in any way to compromise the substance of the patient's medical care during this visit.
--- NOTE | 2024-03-31 12:46 | XR_ITS ---
Examination: CT abdomen with intravenous contrast CT pelvis with intravenous contrast 2-D coronal reconstructions 2-D sagittal reconstructions Date and time of exam:March 31, 2024 1258 hours Comparison March 27, 2024 INDICATIONS: Onset generalized abdominal pain today. CT pelvis March 27, 2024 24 mm fluid containing mass anterior pelvic wall contiguous with small bowel in the pelvis CTDI: vol (mGy) 9.06 DLP: (mGycm) 521 Technique: Multiple axial sections of the abdomen and pelvis have been obtained. 64 slice high-resolution scanner used. 3 mm axial sections have been obtained, post intravenous injection 60 cc [id number] 2-D sagittal, coronal reconstructions obtained. Low dose protocols were performed. One or more of the following dose reduction techniques were used; automated exposure control, adjustment of the mA and/or KV according to patient size, use of iterative reconstruction technique. Findings: No focal liver or splenic lesions Absent gallbladder Common bile duct 10 mm No pancreatic or adrenal mass Moderate bilateral renal parenchymal scar formation Right ileostomy No bowel obstruction Colonic diverticulosis Fluid collection 5.5 x 4.0 x 2.2 cm in the subcutaneous fatty tissue anterior pelvis extending from the umbilicus caudad, clinical correlation advised Air in the urinary bladder Diffuse significant lumbar degenerative disc disease IMPRESSION: Fluid collection 5.4 x 4.0 x 2.2 cm in the subcutaneous fatty tissue anterior pelvic wall extending from the umbilicus caudad, clinical correlation advised, differential would include abscess, hematoma
[2024-03-31] MEDS: PIPER/TAZO 3.375 GM 3.375 GM/50 ML BAG IV ×2 (15:14→21:42)
[2024-03-31 16:48] LABS: Bilirubin,Total 0.3 mg/dL (0.3-1.2)
[2024-03-31] MEDS: DONEPEZIL HCL 5 MG TABLET 10 MG PO (21:42)
--- NOTE | 2024-03-31 23:55 | PD.NEUROPROG ---
Documentation for date of: 03/31/24 Subjective Subjective Interval history: Patient was seen in telemetry today. No new symptoms reported. She is tolerating oral pur?ed diet. Exam - Neurology Vital Signs Temp Pulse Resp BP Pulse Ox O2 Del Method O2 Flow Rate 96.9 F 80 20 113/68 99 Nasal Cannula 2 03/31/24 20:00 03/31/24 21:46 03/31/24 20:00 03/31/24 21:46 03/31/24 20:00 03/31/24 20:00 03/31/24 20:00 Narrative Exam GENERAL APPEARANCE: Well developed, well-nourished in no acute distress. HEENT: Normocephalic, atraumatic, extraocular movements intact. Pupils: Equal reacting to light NECK: Supple, no JVD or bruits. CARDIOVASULAR: Heart: S1, S2 heard, regular without S3-S4 or murmur no rubs or gallops. LUNGS/CHEST: Clear to auscultation bilaterally. No rails, rhonchi, or wheezing. Normal inspection. ABDOMEN: Soft, nontender, with normal bowel sounds. No pulsatile masses. No rebound, rigidity, or guarding. Normal inspection and palpation. EXTREMITIES: Normal inspection and palpation. No edema, clubbing or cyanosis. SKIN: Warm and dry without rashes. Normal inspection. MUSCULOSKELETAL: No cervical, thoracic, lumbar or midline bony tenderness. Normal inspection. NEURO: Alert, awake and oriented x3. Cranial nerves: II through XII grossly intact. Speech and language: Normal with no dysarthria or dysphasia. Motor system: Tone and bulk: Normal: Strength: Moves all 4 extremities; No pronator drift noted. Deep tendon reflexes: 2+ bilaterally symmetrical. Plantar reflex: Downgoing bilaterally. Sensory system: Intact to all modalities of sensation bilaterally. Coordination: Intact to zxydes-tkns-oajjid and ewat-njis-xzog test bilaterally. No ataxia, no dysmetria, or dysdiadochokinesia noted. No intention tremors noted. Gait: Not tested. No signs of meningeal irritation noted. PSYCHIATRIC: Normal mood and affect. Objective Labs 03/31/24 08:20 03/31/24 04:45 Labs: Laboratory Results - last 24 hr 03/28/24 03/31/24 03/31/24 15:20 04:45 08:20 WBC 19.8 H RBC 3.36 L Hgb 9.7 L Hct 30.4 L MCV 91 MCH 28.9 MCHC 31.9 RDW Std Deviation 54.1 H Plt Count 380 D Neut % (Auto) 72 Lymph % (Auto) 18 Churchill % (Auto) 6 Eos % (Auto) 3 Baso % (Auto) 0 Neut # (Auto) 14.3 H Lymph # (Auto) 3.6 Churchill # (Auto) 1.2 H Eos # (Auto) 0.5 Baso # (Auto) 0.1 Immature Gran # (Auto) 0.15 H Absolute Nucleated RBC 0.00 Immature Gran % 1 H Nucleated RBC % 0 Sodium 137 Potassium 5.3 H D Chloride 104 Carbon Dioxide 20.9 Anion Gap 12 BUN 37 H Creatinine 1.2 Estim Creat Clear Calc 36.0 L eGFR 46 L BUN/Creatinine Ratio 31 H Glucose 68 L Calculated Osmolality 280 Calcium 8.7 Corrected Calcium 9.3 Phosphorus 2.2 L Total Bilirubin 0.3 AST 21 ALT 9 L Alkaline Phosphatase 203 H Total Protein 6.3 Albumin 3.2 L Globulin 3.1 Albumin/Globulin Ratio 1.0 L Stl C. diff Tox B Gene Negative ABG Interpretation ABG results: 03/21/24 05:40 ABG pH 7.35 ABG pCO2 41 ABG pO2 121 H ABG HCO3 23 ABG O2 Saturation 99 H ABG Base Excess -3 Assessment & Plan Assessment and plan (1) New onset seizure: Status: Acute Assessment and plan: Most likely secondary to metabolic encephalopathy: Sepsis, urinary tract infection from E. coli, dehydration, acute kidney injury, hyponatremia. Patient reportedly had seizure-like activity followed by possible left-sided weakness on 03/26/2024. She was last known normal around 9:30 PM. The semiology of the event was described as bilateral jerking of her arms with a blank stare for about 2 minutes before resolving. Afterwards, she was confused and noted to have possible left-sided weakness by staff. No recurrent episodes reported by the staff. However I noticed some abnormal movements involving the left upper extremity with loss of awareness intermittently during the interview and exam today. (Could be focal seizures with loss of awareness/also called complex partial seizures) Even though the EEG was negative for epileptiform discharges and MRI brain showed only chronic prominent microvascular ischemic changes without any acute infarction, will continue with AED but increase Depakote to 500 mg twice a day in place of Keppra for better side effect profile. Noted her kidney function is low and liver enzymes are normal. Liver ultrasound showed fatty infiltration but no other liver lesions.
--- NOTE | 2024-03-31 23:55 | PC.NURSE ---
2055: Dr. Kimber Templeton, was made aware of patients multiple episodes absent seizures, left arm tremors, absent eye glare. Patient assess at bedside. no new orders.
[2024-04-01] VITALS (10 sets, daily range): BP systolic 118–145; BP diastolic 53–81; PULSE 63–101; RESP 14–33; TEMP 36.1–36.6; O2SAT 92–100; BMI 25.0
--- NOTE | 2024-04-01 00:04 | PC.NURSE ---
2351: Patient had another episode of absent seizure md made aware, no new orders.
[2024-04-01 05:53] LABS: Basophils # (Auto) 0.1 Thou/mm3 (0.0-0.2); Basophils % (Auto) 0 % (0-2.5); Eosinophils # (Auto) 0.6 Thou/mm3 (0.0-0.5); Eosinophils % (Auto) 4 % (0-10); Hematocrit 30.5 % (36.0-46.0); Hemoglobin 9.7 g/dL (12.0-16.0); Immature Granulocytes % (Auto) 1 % (0-0); Immature Granulocytes Auto 0.13 Thou/mm3 (0.00-0.00); Lymphocytes # (Auto) 3.3 Thou/mm3 (1.0-4.8); Lymphocytes % (Auto) 21 % (10-50); Mean Corpuscular HGB Conc 31.8 g/dl (31.0-37.0); Mean Corpuscular Hemoglobin 28.5 pg (25.0-35.0); Mean Corpuscular Volume 90 fL (80-100); Monocytes # (Auto) 1.1 Thou/mm3 (0.0-0.8); Monocytes % (Auto) 7 % (0-12); Neutrophils # (Auto) 10.7 Thou/mm3 (1.8-7.7); Neutrophils % (Auto) 68 % (37-80); Nucleated Red Blood Cell % 0 /100 WBC (0); Platelet Count 370 Thou/mm3 (140-440); RDW Standard Deviation 54.4 fL (36.4-46.3); White Blood Count 15.7 Thou/mm3 (3.6-11.0)
[2024-04-01] MEDS: LEVOTHYROXINE SODIUM 112 MCG, LEVOTHYROXINE SODIUM 25 MCG 137 MCG PO (05:56)
[2024-04-01] MEDS: LOPERAMIDE 2 MG CAPSULE 10 MG PO ×3 (05:56→21:37)
[2024-04-01] MEDS: PIPER/TAZO 3.375 GM 3.375 GM/50 ML BAG IV ×3 (05:57→21:36)
[2024-04-01 07:09] LABS: Alanine Aminotransferase 10 U/L (10-49); Albumin/Globulin Ratio 0.9 (1.2-2.2); Alkaline Phosphatase 219 U/L (46-116); Anion Gap 8 (7-16); Aspartate Amino Transferase 15 U/L (0-34); BUN/Creatinine Ratio 33 Ratio (12-20); Blood Urea Nitrogen 43 mg/dL (9-23); Calcium 8.9 mg/dL (8.3-10.6); Calcium (Corrected) 9.7 mg/dL (8.5-10.1); Carbon Dioxide 27.1 mMol/L (20.0-31.0); Chloride 103 mMol/L (98-107); Creatinine (Component) 1.3 mg/dL (0.6-1.3); Estimated Creatinine Clearance 33.3 mL/min (>60); Globulin 3.2 gm/dL (2.3-3.5); Glucose 72 mg/dL (74-106); Magnesium 2.3 mg/dL (1.6-2.6); Osmolality,Calculated 285 (275-295); Phosphorous 3.2 mg/dL (2.4-5.1); Potassium 5.2 mMol/L (3.4-5.1); Sodium 138 mMol/L (136-145); Total Protein 6.2 gm/dL (5.7-8.2); eGFR 42 See Note
[2024-04-01] MEDS: VALPROIC ACID SYRUP 250 MG/5 ML UDC 500 MG PO ×2 (09:11→20:23)
[2024-04-01] MEDS: HEPARIN SOD INJ 5000 UNIT/ML VIAL SC ×2 (09:11→20:25)
[2024-04-01] MEDS: METOPROLOL TARTRATE 25 MG TABLET PO ×2 (09:12→20:24)
[2024-04-01 11:20] LABS: Bilirubin,Total 0.3 mg/dL (0.3-1.2)
[2024-04-01] MEDS: MORPHINE SULF INJ 10 MG/ML VIAL 2 MG IVP (11:48)
--- NOTE | 2024-04-01 12:19 | PD.SURPROG ---
Documentation for date of: 04/01/24 Subjective Subjective Brief History: 78F with HTN, CHF, hypothyroidism who underwent right hemicolectomy with diverting ileostomy for fecal contamination 12/19, admitted in past for MAKENZIE here now with AMS and acute renal failure, planned for emergent HD. Workup shows leukocytosis and possible abdominal fluid collection PMH: HTN, CHF, hypothyroidism, bipolar disorder PSHx: Tonsillectomy, appendectomy, cholecystectomy, hysterectomy, R hemicolectomy with diverting ileostomy 12/19 for benign necrotic mass Meds: no anticoagulation Allergies: haldol, naproxen, fluoxetine Social hx: Nonsmoker Narrative: Pt underwent CT AP yesterday for WBC 19, which showed subcutaneous fluid collection now >5cm. Pt denies any pain, remains afebrile Exam Vital Signs Temp Pulse Resp BP Pulse Ox O2 Del Method O2 Flow Rate 97.0 F 82 19 130/62 97 Nasal Cannula 1.5 04/01/24 08:00 04/01/24 09:12 04/01/24 08:00 04/01/24 09:12 04/01/24 08:00 04/01/24 08:00 04/01/24 08:00 Constitutional Constitutional: no acute distress Routine Respiratory Exam Respiratory: Present no resp distress Routine Abdominal Exam Abdominal: Present soft, wound (midline wound with minimal fluctuance) and ostomy (pink with mild surrounding erythema); Absent tenderness or distended Results Results: Laboratory Laboratory results: results reviewed Results: Imaging CT scan - abdomen: report reviewed and image reviewed Assessment & Plan Plan 78F with HTN, CHF, hypothyroidism who underwent right hemicolectomy with diverting ileostomy for fecal contamination 12/19, admitted with acute renal failure, improved from that standpoint now with concern for seizure activity as well as subcutaneous abdominal wall abscess I&D at bedside today Ileostomy reversal 04/05 pending clinical status
--- NOTE | 2024-04-01 12:20 | PD.SURPROC ---
Procedures - Surgery Procedure Comment Procedure Comment: Informed consent obtained Area prepped with iodine Aspiration inferior to umbilicus with return of 3cc pus followed by longitudinal incision with #15 blade Approximately 20cc of pus expressed Wound irrigated with saline and packed with 1 iodoform Covered with allevyn Pt tolerated procedure well Melchor RN present Abscess I/D Site: abdomen Sedation/analgesia: other (Morphine 2mg IV) Technique: needle aspiration (Midline wound first aspirated with 18g needle inferior to umbililcus with return of purulent output; then an incision was made with #15 blade) and other Amount of fluid (mL): 20 Irrigation: Yes Packing used?: iodoform (1 )
[2024-04-01] MEDS: DOXYCYCLINE 100 MG TABLET PO ×2 (12:43→20:24)
--- NOTE | 2024-04-01 13:12 | ESPR_ITS ---
<Statement entered by Lonnie Rick DO - 04/01/24 14:55> Senior attestation: Patient was examined and case was reviewed with team including attending physician. Note reviewed, I agree with most of its contents and agree with the patient's care. WBC noted to improve today, will add doxycyline coverage in addition to Zoysn. General surgeon Dr. Flynn following, has completed I&D today draining ~20cc. Blood cultures remain pending, will repeat potassium levels this afternoon given 5.2 potassium this morning. Lonnie Rick DO PGY-3 Documentation for date of: 04/01/24 Subjective Subjective Interval history: Patient seen at bedside. Overnight patient had concern of absence seizure per nurse, no symptoms noted by night team. Patient's CTAP yesterday showed fluid collection 5.4 x 4 x 2.2 and anterior pelvic wall, increased in comparison to CT from 03/27. Patient will be evaluated by general surgeon today Started on doxycycline 100 p.o. twice daily for MRSA coverage. Patient's potassium 5.2, will repeat in afternoon. 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 Eyes open, symmetrical, & clear CARDIO: No chest pain on palpation. Heart RRR, no obvious murmurs PULM: No noted coughing/dyspnea. Lungs CTA B/L GI: Abdomen soft, nondistended, mildly tender to palpation at umbilical region. Colostomy bag with content, with significant leakage and cellulitis seen in surrounding area. BSx4 URO/TENANT COORDINATOR:: No further abnormalities noted. SKIN/MSK/EXT: No wounds/rashes/edema/amputations, no pain on palpation. Pedal pulses present B/L Objective Labs 04/02/24 05:34 04/02/24 05:34 Labs: Laboratory Results - last 24 hr 03/31/24 04/01/24 04:45 04:30 WBC 15.7 H RBC 3.40 L Hgb 9.7 L Hct 30.5 L MCV 90 MCH 28.5 MCHC 31.8 RDW Std Deviation 54.4 H Plt Count 370 Neut % (Auto) 68 Lymph % (Auto) 21 Bell % (Auto) 7 Eos % (Auto) 4 Baso % (Auto) 0 Neut # (Auto) 10.7 H Lymph # (Auto) 3.3 Bell # (Auto) 1.1 H Eos # (Auto) 0.6 H Baso # (Auto) 0.1 Immature Gran # (Auto) 0.13 H Absolute Nucleated RBC 0.00 Immature Gran % 1 H Nucleated RBC % 0 Sodium 138 Potassium 5.2 H Chloride 103 Carbon Dioxide 27.1 Anion Gap 8 BUN 43 H Creatinine 1.3 Estim Creat Clear Calc 33.3 L eGFR 42 L BUN/Creatinine Ratio 33 H Glucose 72 L Calculated Osmolality 285 Calcium 8.9 Corrected Calcium 9.7 Phosphorus 3.2 Magnesium 2.3 Total Bilirubin 0.3 0.3 AST 15 ALT 10 Alkaline Phosphatase 219 H Total Protein 6.2 Albumin 3.0 L Globulin 3.2 Albumin/Globulin Ratio 0.9 L ABG Interpretation ABG results: 03/21/24 05:40 ABG pH 7.35 ABG pCO2 41 ABG pO2 121 H ABG HCO3 23 ABG O2 Saturation 99 H ABG Base Excess -3 Quality Measures Quality Measures VTE prophylaxis and sepsis Current suspected stage: ruled out Possible source: skin/soft tissue Blood cultures ordered: yes Antibiotic ordered: Yes Advance care planning discussed with:: patient Assessment & Plan Assessment Current Active Medications: Generic Name Dose Route Start Last Admin Trade Name Freq PRN Reason Stop Dose Admin Acetaminophen 650 mg 03/21/24 05:19 Acetaminophen 325 Mg Tablet PO 04/20/24 05:18 Q6H PRN Fever >101.5 Albuterol/Ipratropium 3 ml 03/21/24 15:51 Albuterol/Ipratropium (Duoneb) Rt Tia 3 Ml Nebu INH 04/20/24 18:59 Q4HRRT PRN Shortness of breath Dextrose 25 ml 03/31/24 09:56 Dextrose 50%-Water Inj 50 Ml Syringe IV 04/30/24 09:55 Q15MIN PRN BG 50-70 responsive npo pt Dextrose 50 ml 03/31/24 09:56 Dextrose 50%-Water Inj 50 Ml Syringe IV 04/30/24 09:55 Q15MIN PRN BG <50 OR BG <70 & pt unresponsive Donepezil HCl 10 mg 03/21/24 21:00 03/31/24 21:42 Donepezil Hcl 5 Mg Tablet PO 04/20/24 20:59 10 mg HS ASHISH Administration Doxycycline Hyclate 100 mg 04/01/24 09:30 04/01/24 12:43 Doxycycline 100 Mg Tablet PO 04/08/24 09:29 100 mg BID ASHISH Administration Glucagon 1 mg 03/31/24 09:56 Glucagon Inj 1 Mg Vial IM Q15MIN PRN BG <70, and no IV access Heparin Sodium (Porcine) 3,700 unit 03/21/24 17:43 03/21/24 20:09 Heparin Sod Inj 1000 Unit/Ml Vial 10 Ml INDWELLCAT 04/04/24 17:42 3,700 unit PRN PRN Administration DIALYSIS Heparin Sodium (Porcine) 5,000 unit 03/22/24 17:30 04/01/24 09:11 Heparin Sod Inj 5000 Unit/Ml Vial SC 04/05/24 17:29 5,000 unit Q12HR ASHISH Administration Hydralazine HCl 10 mg 03/21/24 15:45 Hydralazine Hcl 10 Mg Tablet PO 04/20/24 17:59 Q6HR PRN SBP>160 Albumin Human 25 gm in 100 mls @ 100 mls/min 03/21/24 10:54 Albuminar-25 Ivpb IV PRN PRN DIALYSIS Piperacillin/Tazobactam/Dextrose 3.375 gm in 50 mls @ 12.5 mls/hr 03/31/24 14:30 04/01/24 05:57 Zosyn IV 04/07/24 14:29 12.5 mls/hr Q8HR ASHISH Administration Protocol Levothyroxine Sodium 112 mcg/ 137 mcg 03/21/24 07:30 04/01/24 05:56 Levothyroxine Sodium 25 mcg PO 04/20/24 07:29 137 mcg ACBR ASHISH Administration Loperamide HCl 10 mg 03/26/24 14:00 04/01/24 05:56 Loperamide 2 Mg Capsule PO 04/02/24 13:59 10 mg TID ASHISH Administration Memantine 10 mg 03/21/24 21:00 03/26/24 20:42 Memantine Hcl 5 Mg Tablet PO 04/20/24 20:59 10 mg BID ASHISH Administration Metoprolol Tartrate 25 mg 03/21/24 21:00 04/01/24 09:12 Metoprolol Tartrate 25 Mg Tablet PO 04/20/24 20:59 25 mg BID ASHISH Administration Ondansetron HCl 4 mg 03/21/24 06:08 Ondansetron Inj 2 Mg/Ml Inj 2 Ml IV 04/20/24 06:07 Q6H PRN NAUSEA OR VOMITING Protocol Sodium Chloride 3 ml 03/21/24 08:25 Sodium Chloride Rt Tia 0.9% 3 Ml Nebu INH 04/20/24 08:24 PRN PRN SOLN Valproic Acid 500 mg 03/31/24 09:00 04/01/24 09:11 Valproic Acid Syrup 250 Mg/5 Ml Udc PO 04/30/24 08:59 500 mg BID ASHISH Administration Plan Summary: The patient is a 78-year-old female with a past medical history of hypothyroidism, hypertension, JACKIE, asthma, depression, dementia, recurrent UTI, and is status post hemicolectomy with ileostomy admitted for acute uremic encephalopathy, stage III acute kidney injury, sepsis secondary to UTI versus intra-abdominal abscess. #Sepsis, secondary to #E.Coli UTI-treated #Possible intra-abdominal abscess- ruled out #History of recurrent UTI CT A/P prelim report shows possible intra-abdominal abscess. Patient reports dysuria and cloudy urine, noted to have recurrent UTIs. Most recent urine cultures positive for E. coli, pansensitive. WBC on admission-20.9 Additionally, patient is on IV Zosyn for sepsis management. General surgeon Dr. Flynn consulted, recommends to continue wound care Patient was evaluated by the general surgeon Dr. Flynn who is considering takedown of the ileostomy following a CT scan with contrast which will be done when renal function is much better. For this reason, we will leave the TDC in for possible dialysis postcontrast CT. CT to be done on Wednesday Otherwise, patient is still on ceftriaxone and metronidazole. 03/31/2024-WBC 15.7, hemoglobin stable at 9.7, repeat blood cultures negative for now, patient will be evaluated by general surgery today. Will continue current dose of valproate, will continue Zosyn, started on doxycycline 100 p.o. twice daily Plan: -Follow blood culture -Continue IV Zosyn (03/31- -continue doxycycline p.o. twice daily (04/01- ?General Surgeon Dr. Flynn consulted, following recommendations-possible drain today at bedside after evaluation. -Continue wound care -Continue to monitor CBC -Will monitor for overnight fevers #?New onset seizures #Likely complex partial seizures Patient had a rapid response called on 03/26 night for shakiness and blank staring. Had left-sided weakness which has resolved. Teleneuro was consulted, stroke alert was called. CT head and CTA negative for any acute findings. Patient was evaluated by Neurologist Dr Brush, who suspects that patient might have complex partial seizures and recommended doubling valproate dose in place of Keppra due to better side effect profile. Keppra 1000 mg twice daily discontinued 03/31 Plan -Continue valproate to 500mg twice daily -Seizure precautions -Holding memantine -Neurology consulted, appreciate recommendations #Acute encephalopathy uremic vs infections-resolved #Acute kidney injury-resolved #Increased ileostomy output Decreased p.o. intake in the last 2 to 3 days with nausea and vomiting and presence of ileostomy, thus likely prerenal. However, given extensive elevation in creatinine and drop in GFR other etiologies cannot be excluded. Initial creatinine 9.5 (BL 1.0), BUN 121. Will have received total of 3.5 L of IVF. On admission, patient was noted to have hyperkalemia, increased BUN and creatinine of up to 9.5 as well as hyperphosphatemia. UA was positive for UTI, CT abdomen pelvis showed some suspicion for intra-abdominal abscess. The patient was given 3.5 L of NS and 1 dose of ceftriaxone and admitted for management of sepsis secondary to UTI versus intra-abdominal abscess. On review today, patient's potassium was found to be 6.6 and she was started on a hyperkalemic protocol-5 units of insulin, D50 and given 800 mg of sevelamer. Clinically, she no longer has episodes of vomiting or nausea and mentation is back to baseline. Nephrology was consulted for urgent hemodialysis. BUN and creatinine still showing significant improvement, creatinine is 1.2 today, GFR 46 Patient having increased output from ileostomy, Pending CT with contrast of abdomen prior to possible ileostomy reversal by general surgeon Dr. Flynn. Stool C.diff negative Plan: -Continue loperamide 10mg TID -Encourage increased oral intake -Continue to monitor CMP -Avoid nephrotoxins -Renally dose medications -Consulted general surgery appreciate recommendations -Consulted nephrology, appreciate recommendations #Electrolyte imbalances #Hyponatremia-resolved #Hyperkalemia-resolved #Hypochloremia-resolved #Hypocalcemia-resolved #Hyperphosphatemia-resolved #Hypomagnesemia-resolved -Hyperkalemic protocol initiated with 5 units of insulin, D50 and sevelamer as well as albuterol on admission. -Urgent dialysis indicated on admission, patient had temporary catheter placement. -Holding dialysis for now as renal function is improving Plan: ? Nephrology consulted, following recommendations ? Continue to monitor CMP - Repeat potassium today #History of hypothyroidism Plan ? Resume home medication levothyroxine 125 mcg before breakfast #History of hypertension Plan ? Resume home med- Metoprolol tartrate 25mg BID -Hydralazine 10mg Q6HR PRN for SBP >160 #History of depression #History of dementia #History of bipolar disorder #History of anxiety Plan ? Resume home medications donepezil and memantine -Resumed home valproate 500mg (10ml) at bedtime #History of obstructive sleep apnea Plan ? CPAP at bedtime as needed #History of asthma Plan ? DuoNebs every 4 hours breathing treatment as needed DVT prophylaxis: Subcutaneous heparin every 12H GI prophylaxis: Not indicated Diet: Dysphagia 1?pur?ed Lines: Peripheral IV Code status: Full code Case was discussed with senior resident Dr Rick and attending physician, Dr Natalio Shirley PGY1 Attending Provider Attestation/Addendum Face to face evaluation was performed by me. I have personally seen and examined the patient. I discussed the assessment and plan with the entire medicine team. I reviewed available medical records, imaging studies, laboratory results. I agree with the above subjective data, objective findings, assessment and plan except as corrected by me or noted below Abdominal wall infection, colostomy present, acute UTI, cystitis Seizure disorder Acute kidney injury, likely dehydration and possible ATN requiring hemodialysis, improved for now. -TDC catheter in place in case she requires dialysis, might need to have CT abdomen with contrast will follow surgery recommendations -Looks like plan for colostomy takedown in few days by surgery, will follow recommendations -Continue empiric antibiotic therapy -Looks like plan is also for bedside incision and drainage per surgery, will follow recommendations -Monitor labs, vitals, clinical course closely DVT prophylaxis with subcu heparin
[2024-04-01 16:38] LABS: Potassium 4.9 mMol/L (3.4-5.1)
--- NOTE | 2024-04-01 17:04 | PD.NEPHPROG ---
Documentation for date of: 04/01/24 Subjective Subjective Interval history: 78 y/o F with PMHx significant for hypothyroidism, hypertension, JACKIE, asthma, depression, dementia, recurrent UTI, and is status post hemicolectomy with ileostomy presents with altered mental status and nausea and vomiting. Patient initially presented to ED with altered mentation and was not able to provide history. Subsequently given 2.5 L of fluids per sepsis protocol and mentation slowly improved. Upon evaluation, patient endorsed 2 to 3 days of nausea and vomiting along with decreased p.o. intake. Also endorses abdominal pain at ileostomy site, decreased ileostomy output, as well as dysuria and cloudy urine but denies fever or chills. Otherwise also denies shortness of breath or chest discomfort. Of note, patient recently discharged on 02/15 for ileostomy leakage/malfunction. CT head unremarkable. CT A/P showed Soft tissue mass in the anterior abdominal wall 2.8 x 2.2 cm and aggregate of small bowel versus abscess in the right lower abdomen poorly defined, at least 4 cm in dimension. Patient recieved IVF, magnesisum, zosyn and rocephin in ED. Labs showed sodium 125, potassium 6.6, BUN 134, Senior Java Engineer 9.3, eGFR 4, Corrected Ca 8.3, phos 10.7, Mg 1.1. Patient has no known history CKD. On exam patient was lethargic but responsive, followed commands, A&Ox3. Appears euvolemic. Nephrology consulted for acute renal failure, plan for emergent dialysis. 03/22: Patient seen and examined in bed. Patient remains lethargic. Signs of leaking around ileostomy bag. Labs significantly improved after dialysis session yesterday. Sodium 129, potassium 4.1, bicarb 25.4, BUN 62, creatinine 2.6, eGFR 12. Plan for dialysis today. Prelim urine culture positive for gram-negative rods. Patient currently on Zosyn. 03/23: Patient seen and examined in bed. Patient is somewhat lethargic but improved from before. Sodium 135, potassium 3.7, bicarb 28.7, BUN 35, creatinine 2.2, eGFR 22. Will give 1 L normal saline at 70 mL/h and 40 mEq potassium p.o. No plans for dialysis today. 03/24/2024 patient currently seen in telemetry. More alert and awake. Patient has more than a liter of urine output although 1800 colostomy losses. Blood pressure 144/62, heart rate 83. WBC 12.8, hemoglobin 9.1, platelets 329. Sodium 139, potassium 4.2, BUN 43, creatinine 2.1, phosphorus 2.2, magnesium 1.7 Primary team wanted to do CT abdomen with contrast. Dr. Flynn suggested can hold CT with contrast for 1 to 2 days. 1 L IV fluids given. Will monitor renal function closely. No need for dialysis today. However to for the weekend will leave Vas-Cath. 04/01/2024 patient currently seen in medical floor. Resting comfortably. Still having significant colostomy losses. CT abdomen with contrast results reviewed. Labs, medications reviewed. Patient feeling much better. Encouraged encourage p.o. fluids. Dialysis catheter was removed. Still leaking around the colostomy site. Surgeon on the case. Possible surgery next week. Review of Systems Review of Systems Narrative Review of Systems: CONSTITUTIONAL: Patient denies any fever, chills. Patient feeling much better HEENT: Denies any visual disturbances or hearing problems. CARDIOVASCULAR: Patient denies any chest pain, shortness of breath, swelling in the lower extremities. PULMONARY: Patient denies any shortness of breath, cough. GASTROINTESTINAL: patient complaining of discomfort around the colostomy site. Leakage noted. GENITOURINARY: Patient denies any urinary symptoms of burning or frequency or hematuria, denies any form in the urine. SKIN: Denies any rash. MUSCULOSKELETAL: Gait imbalance NEUROLOGICAL: Denies any neurological problems of strokes, seizures or confusion. Denies any memory problems. Exam Vital Signs Temp Pulse Resp BP Pulse Ox O2 Del Method O2 Flow Rate 36.2 C 71 17 118/80 99 Nasal Cannula 1.5 04/01/24 12:04/01/24 12:00 04/01/24 12:00 04/01/24 12:04/01/24 12:04/01/24 12:04/01/24 12:00 Narrative Exam PE: Gen: Well-developed and well-nourished. Elderly frail lady. HEENT: NCAT, PERRLA, EOMI, MMM, anicteric conjunctivae. CVS: normal S1 and S2. RRR. No M/R/G. Resp: Diffuse coarse lung sounds. Abd: soft, non-tender, non-distended. Illeostomy, signs of leaking. MSK: Good ROM in BUE & BLE. No edema or rash. Neuro: CN II-XII grossly intact. Strength 4/5 in BUE & BLE. Alert and oriented x3. Objective Labs 04/01/24 04:30 04/01/24 16:04 Labs: Laboratory Results - last 24 hr 04/01/24 04/01/24 04:30 16:04 WBC 15.7 H RBC 3.40 L Hgb 9.7 L Hct 30.5 L MCV 90 MCH 28.5 MCHC 31.8 RDW Std Deviation 54.4 H Plt Count 370 Neut % (Auto) 68 Lymph % (Auto) 21 [place] % (Auto) 7 Eos % (Auto) 4 Baso % (Auto) 0 Neut # (Auto) 10.7 H Lymph # (Auto) 3.3 [place] # (Auto) 1.1 H Eos # (Auto) 0.6 H Baso # (Auto) 0.1 Immature Gran # (Auto) 0.13 H Absolute Nucleated RBC 0.00 Immature Gran % 1 H Nucleated RBC % 0 Sodium 138 Potassium 5.2 H 4.9 Chloride 103 Carbon Dioxide 27.1 Anion Gap 8 BUN 43 H Creatinine 1.3 Estim Creat Clear Calc 33.3 L eGFR 42 L BUN/Creatinine Ratio 33 H Glucose 72 L Calculated Osmolality 285 Calcium 8.9 Corrected Calcium 9.7 Phosphorus 3.2 Magnesium 2.3 Total Bilirubin 0.3 AST 15 ALT 10 Alkaline Phosphatase 219 H Total Protein 6.2 Albumin 3.0 L Globulin 3.2 Albumin/Globulin Ratio 0.9 L ABG Interpretation ABG results: 03/21/24 05:40 ABG pH 7.35 ABG pCO2 41 ABG pO2 121 H ABG HCO3 23 ABG O2 Saturation 99 H ABG Base Excess -3 Assessment & Plan Assessment and plan (1) New onset seizure: Status: Acute Additional Assessment & Plan Additional Plan: 78 y/o F with PMHx significant for hypothyroidism, hypertension, JACKIE, asthma, depression, dementia, recurrent UTI, and is status post hemicolectomy with ileostomy admitted for acute uremic encephalopathy, stage III acute kidney injury, sepsis secondary to UTI versus intra-abdominal abscess. #Acute kidney injury-suspect patient in ischemic ATN Patient received 2 dialysis treatments and started to make good urine. Dialysis was discontinued and catheter removed. Creatinine improved to 1.3, sodium 138.-s/p CT abdomen with IV contrast . Continue with oral hydration. -Avoid nephrotoxins -Renally dose medications -daily labs #Sepsis, secondary to GI/UTI-on antibiotics.. plan of care discussed with primary team, Dr. Flynn-pending surgical intervention for leaking ileostomy #UTI, gram-negative rods #Electrolyte imbalances #Hypothyroidism #Hypertension #Depression #Dementia Management as per primary team.
[2024-04-01] MEDS: DONEPEZIL HCL 5 MG TABLET 10 MG PO (20:24)
--- NOTE | 2024-04-01 22:49 | ESPR_ITS ---
Documentation for date of: 04/01/24 Subjective Subjective Interval history: Patient was seen in telemetry today. No new symptoms reported. She is tolerating oral diet well, was able to sit up at the edge of the bed with PT session and has not walked yet. . Exam - Neurology Vital Signs Temp Pulse Resp BP Pulse Ox O2 Del Method O2 Flow Rate 97.8 F 98 27 H 145/81 H 100 Nasal Cannula 2 04/01/24 20:00 04/01/24 20:24 04/01/24 20:00 04/01/24 20:24 04/01/24 20:00 04/01/24 20:00 04/01/24 20:00 Narrative Exam GENERAL APPEARANCE: Well developed, well-nourished in no acute distress. HEENT: Normocephalic, atraumatic, extraocular movements intact. Pupils: Equal reacting to light NECK: Supple, no JVD or bruits. CARDIOVASULAR: Heart: S1, S2 heard, regular without S3-S4 or murmur no rubs or gallops. LUNGS/CHEST: Clear to auscultation bilaterally. No rails, rhonchi, or wheezing. Normal inspection. ABDOMEN: Soft, nontender, with normal bowel sounds. No pulsatile masses. No rebound, rigidity, or guarding. Normal inspection and palpation. EXTREMITIES: Normal inspection and palpation. No edema, clubbing or cyanosis. SKIN: Warm and dry without rashes. Normal inspection. MUSCULOSKELETAL: No cervical, thoracic, lumbar or midline bony tenderness. Normal inspection. NEURO: Alert, awake and oriented x3. Cranial nerves: II through XII grossly intact. Speech and language: Normal with no dysarthria or dysphasia. Motor system: Tone and bulk: Normal: Strength: Moves all 4 extremities; No pronator drift noted. Deep tendon reflexes: 2+ bilaterally symmetrical. Plantar reflex: Downgoing bilaterally. Sensory system: Intact to all modalities of sensation bilaterally. Coordination: Intact to [id number]-[id number] and cymk-qhug-qigd test bilaterally. No ataxia, no dysmetria, or dysdiadochokinesia noted. No intention tremors noted. Gait: Not tested. No signs of meningeal irritation noted. PSYCHIATRIC: Normal mood and affect. Objective Labs 04/01/24 04:30 04/01/24 16:04 Labs: Laboratory Results - last 24 hr 04/01/24 04/01/24 04:30 16:04 WBC 15.7 H RBC 3.40 L Hgb 9.7 L Hct 30.5 L MCV 90 MCH 28.5 MCHC 31.8 RDW Std Deviation 54.4 H Plt Count 370 Neut % (Auto) 68 Lymph % (Auto) 21 [place] % (Auto) 7 Eos % (Auto) 4 Baso % (Auto) 0 Neut # (Auto) 10.7 H Lymph # (Auto) 3.3 [place] # (Auto) 1.1 H Eos # (Auto) 0.6 H Baso # (Auto) 0.1 Immature Gran # (Auto) 0.13 H Absolute Nucleated RBC 0.00 Immature Gran % 1 H Nucleated RBC % 0 Sodium 138 Potassium 5.2 H 4.9 Chloride 103 Carbon Dioxide 27.1 Anion Gap 8 BUN 43 H Creatinine 1.3 Estim Creat Clear Calc 33.3 L eGFR 42 L BUN/Creatinine Ratio 33 H Glucose 72 L Calculated Osmolality 285 Calcium 8.9 Corrected Calcium 9.7 Phosphorus 3.2 Magnesium 2.3 Total Bilirubin 0.3 AST 15 ALT 10 Alkaline Phosphatase 219 H Total Protein 6.2 Albumin 3.0 L Globulin 3.2 Albumin/Globulin Ratio 0.9 L ABG Interpretation ABG results: 03/21/24 05:40 ABG pH 7.35 ABG pCO2 41 ABG pO2 121 H ABG HCO3 23 ABG O2 Saturation 99 H ABG Base Excess -3 Assessment & Plan Assessment and plan (1) New onset seizure: Status: Acute Assessment and plan: Most likely secondary to metabolic encephalopathy: Sepsis, urinary tract infection from E. coli, dehydration, acute kidney injury, hyponatremia. Patient reportedly had seizure-like activity followed by possible left-sided weakness on 03/26/2024. She was last known normal around 9:30 PM. The semiology of the event was described as bilateral jerking of her arms with a blank stare for about 2 minutes before resolving. Afterwards, she was confused and noted to have possible left-sided weakness by staff. No recurrent episodes reported. Even though the EEG was negative for epileptiform discharges and MRI brain showed only chronic prominent microvascular ischemic changes without any acute infarction, will continue with Depakote to 500 mg twice a day. Noted her kidney function is low and liver enzymes are normal. Liver ultrasound showed fatty infiltration but no other liver lesions.
[2024-04-02] VITALS (10 sets, daily range): BP systolic 103–141; BP diastolic 41–99; PULSE 73–107; RESP 14–25; TEMP 36.1–36.8; O2SAT 94–100; BMI 23.8
[2024-04-02] MEDS: LOPERAMIDE 2 MG CAPSULE 10 MG PO (05:45)
[2024-04-02] MEDS: LEVOTHYROXINE SODIUM 112 MCG, LEVOTHYROXINE SODIUM 25 MCG 137 MCG PO (05:46)
[2024-04-02] MEDS: PIPER/TAZO 3.375 GM 3.375 GM/50 ML BAG IV (05:46)
[2024-04-02 06:17] LABS: Basophils # (Auto) 0.1 Thou/mm3 (0.0-0.2); Basophils % (Auto) 1 % (0-2.5); Eosinophils # (Auto) 0.4 Thou/mm3 (0.0-0.5); Eosinophils % (Auto) 3 % (0-10); Hematocrit 31.8 % (36.0-46.0); Hemoglobin 10.1 g/dL (12.0-16.0); Immature Granulocytes % (Auto) 1 % (0-0); Immature Granulocytes Auto 0.11 Thou/mm3 (0.00-0.00); Lymphocytes # (Auto) 2.5 Thou/mm3 (1.0-4.8); Lymphocytes % (Auto) 19 % (10-50); Mean Corpuscular HGB Conc 31.8 g/dl (31.0-37.0); Mean Corpuscular Hemoglobin 28.2 pg (25.0-35.0); Mean Corpuscular Volume 89 fL (80-100); Monocytes # (Auto) 1.1 Thou/mm3 (0.0-0.8); Monocytes % (Auto) 9 % (0-12); Neutrophils % (Auto) 68 % (37-80); Nucleated Red Blood Cell % 0 /100 WBC (0); Platelet Count 420 Thou/mm3 (140-440); RDW Standard Deviation 53.5 fL (36.4-46.3); Red Blood Count 3.58 Miln/mm3 (4.00-5.20); White Blood Count 13.3 Thou/mm3 (3.6-11.0)
[2024-04-02 06:48] LABS: Alanine Aminotransferase 8 U/L (10-49); Albumin, Serum 3.4 gm/dL (3.4-4.8); Alkaline Phosphatase 270 U/L (46-116); Anion Gap 10 (7-16); Aspartate Amino Transferase 15 U/L (0-34); BUN/Creatinine Ratio 27 Ratio (12-20); Bilirubin,Total 0.3 mg/dL (0.3-1.2); Blood Urea Nitrogen 40 mg/dL (9-23); Calcium (Corrected) 9.5 mg/dL (8.5-10.1); Carbon Dioxide 28.1 mMol/L (20.0-31.0); Chloride 97 mMol/L (98-107); Creatinine (Component) 1.5 mg/dL (0.6-1.3); Estimated Creatinine Clearance 26.3 mL/min (>60); Globulin 3.4 gm/dL (2.3-3.5); Glucose 129 mg/dL (74-106); Magnesium 1.8 mg/dL (1.6-2.6); Osmolality,Calculated 281 (275-295); Phosphorous 3.2 mg/dL (2.4-5.1); Potassium 4.6 mMol/L (3.4-5.1); Sodium 135 mMol/L (136-145); Total Protein 6.8 gm/dL (5.7-8.2); eGFR 35 See Note
[2024-04-02] MEDS: METOPROLOL TARTRATE 25 MG TABLET PO ×2 (08:46→21:10)
[2024-04-02] MEDS: DOXYCYCLINE 100 MG TABLET PO ×2 (08:46→21:10)
[2024-04-02] MEDS: VALPROIC ACID SYRUP 250 MG/5 ML UDC 500 MG PO ×2 (08:47→21:10)
[2024-04-02] MEDS: HEPARIN SOD INJ 5000 UNIT/ML VIAL SC ×2 (08:47→21:11)
--- NOTE | 2024-04-02 12:48 | ESPR_ITS ---
<Statement entered by Lonnie Rick DO - 04/02/24 16:30> Senior attestation: Patient was examined and case was reviewed with team including attending physician. Note reviewed, I agree with most of its contents and agree with the patient's care. Final blood cultures pending, will de-escalate antibiotics to doxycycline and stop zosyn. General surgery following, ileostomy reversal planned 04/05, may happen during hospital course if patient is not discharged by then. Lonnie Rick DO PGY-3 Documentation for date of: 04/02/24 Subjective Subjective Interval history: Patient seen at bedside. No acute overnight events. Patient had incision and drainage done yesterday by Dr. Flynn, expressed approximately 20 cc of p.o., wound was irrigated with saline and packed, patient tolerated procedure well. Today at bedside, patient's does not complain of abdominal pain and is tolerating her oral diet. Abdominal exam shows a colostomy bag with dressing, some leak around it but no tenderness to palpation. Repeat blood cultures preliminary are negative. WBC downtrending, 13.3 today. Will de-escalate antibiotics and stop IV Zosyn, continue on doxycycline for 5 more days. Surgery recommendations appreciated, anticipate surgery in 3 days. 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 Eyes open, symmetrical, & clear CARDIO: No chest pain on palpation. Heart RRR, no obvious murmurs PULM: No noted coughing/dyspnea. Lungs CTA B/L GI: Abdomen soft, nondistended, mildly tender to palpation at umbilical region. Colostomy bag with content, minimal leak, cellulitis seen in surrounding area. 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 SKIN/MSK/EXT: No wounds/rashes/edema/amputations, no pain on palpation. Pedal pulses present B/L Objective Labs 04/02/24 05:34 04/02/24 05:34 Labs: Laboratory Results - last 24 hr 04/01/24 04/02/24 16:04 05:34 WBC 13.3 H RBC 3.58 L Hgb 10.1 L Hct 31.8 L MCV 89 MCH 28.2 MCHC 31.8 RDW Std Deviation 53.5 H Plt Count 420 D Neut % (Auto) 68 Lymph % (Auto) 19 [place] % (Auto) 9 Eos % (Auto) 3 Baso % (Auto) 1 Neut # (Auto) 9.0 H Lymph # (Auto) 2.5 [place] # (Auto) 1.1 H Eos # (Auto) 0.4 Baso # (Auto) 0.1 Immature Gran # (Auto) 0.11 H Absolute Nucleated RBC 0.00 Immature Gran % 1 H Nucleated RBC % 0 Sodium 135 L Potassium 4.9 4.6 Chloride 97 L Carbon Dioxide 28.1 Anion Gap 10 BUN 40 H Creatinine 1.5 H Estim Creat Clear Calc 26.3 L eGFR 35 L BUN/Creatinine Ratio 27 H Glucose 129 H D Calculated Osmolality 281 Calcium 9.0 Corrected Calcium 9.5 Phosphorus 3.2 Magnesium 1.8 Total Bilirubin 0.3 AST 15 ALT 8 L Alkaline Phosphatase 270 H D Total Protein 6.8 Albumin 3.4 Globulin 3.4 Albumin/Globulin Ratio 1.0 L ABG Interpretation ABG results: 03/21/24 05:40 ABG pH 7.35 ABG pCO2 41 ABG pO2 121 H ABG HCO3 23 ABG O2 Saturation 99 H ABG Base Excess -3 Quality Measures Quality Measures VTE prophylaxis and sepsis Current suspected stage: sepsis Possible source: skin/soft tissue Blood cultures ordered: yes Antibiotic ordered: Yes Advance care planning discussed with:: patient Assessment & Plan Assessment Current Active Medications: Generic Name Dose Route Start Last Admin Trade Name Freq PRN Reason Stop Dose Admin Acetaminophen 650 mg 03/21/24 05:19 Acetaminophen 325 Mg Tablet PO 04/20/24 05:18 Q6H PRN Fever >101.5 Albuterol/Ipratropium 3 ml 03/21/24 15:51 Albuterol/Ipratropium (Duoneb) Rt Tia 3 Ml Nebu INH 04/20/24 18:59 Q4HRRT PRN Shortness of breath Dextrose 25 ml 03/31/24 09:56 Dextrose 50%-Water Inj 50 Ml Syringe IV 04/30/24 09:55 Q15MIN PRN BG 50-70 responsive npo pt Dextrose 50 ml 03/31/24 09:56 Dextrose 50%-Water Inj 50 Ml Syringe IV 04/30/24 09:55 Q15MIN PRN BG <50 OR BG <70 & pt unresponsive Donepezil HCl 10 mg 03/21/24 21:00 04/01/24 20:24 Donepezil Hcl 5 Mg Tablet PO 04/20/24 20:59 10 mg HS ASHISH Administration Doxycycline Hyclate 100 mg 04/01/24 09:30 04/02/24 08:46 Doxycycline 100 Mg Tablet PO 04/08/24 09:29 100 mg BID ASHISH Administration Glucagon 1 mg 03/31/24 09:56 Glucagon Inj 1 Mg Vial IM Q15MIN PRN BG <70, and no IV access Heparin Sodium (Porcine) 3,700 unit 03/21/24 17:43 03/21/24 20:09 Heparin Sod Inj 1000 Unit/Ml Vial 10 Ml INDWELLCAT 04/04/24 17:42 3,700 unit PRN PRN Administration DIALYSIS Heparin Sodium (Porcine) 5,000 unit 03/22/24 17:30 04/02/24 08:47 Heparin Sod Inj 5000 Unit/Ml Vial SC 04/05/24 17:29 5,000 unit Q12HR ASHISH Administration Hydralazine HCl 10 mg 03/21/24 15:45 Hydralazine Hcl 10 Mg Tablet PO 04/20/24 17:59 Q6HR PRN SBP>160 Albumin Human 25 gm in 100 mls @ 100 mls/min 03/21/24 10:54 Albuminar-25 Ivpb IV PRN PRN DIALYSIS Sodium Chloride 1,000 mls @ 60 mls/hr 04/02/24 10:04 Ns IV 04/03/24 02:43 .[id number] ONE Levothyroxine Sodium 112 mcg/ 137 mcg 03/21/24 07:30 04/02/24 05:46 Levothyroxine Sodium 25 mcg PO 04/20/24 07:29 137 mcg ACBR ASHISH Administration Loperamide HCl 10 mg 03/26/24 14:00 04/02/24 05:45 Loperamide 2 Mg Capsule PO 04/02/24 13:59 10 mg TID ASHISH Administration Memantine 10 mg 03/21/24 21:00 03/26/24 20:42 Memantine Hcl 5 Mg Tablet PO 04/20/24 20:59 10 mg BID ASHISH Administration Metoprolol Tartrate 25 mg 03/21/24 21:00 04/02/24 08:46 Metoprolol Tartrate 25 Mg Tablet PO 04/20/24 20:59 25 mg BID ASHISH Administration Ondansetron HCl 4 mg 03/21/24 06:08 Ondansetron Inj 2 Mg/Ml Inj 2 Ml IV 04/20/24 06:07 Q6H PRN NAUSEA OR VOMITING Protocol Sodium Chloride 3 ml 03/21/24 08:25 Sodium Chloride Rt Tia 0.9% 3 Ml Nebu INH 04/20/24 08:24 PRN PRN SOLN Valproic Acid 500 mg 03/31/24 09:00 04/02/24 08:47 Valproic Acid Syrup 250 Mg/5 Ml Udc PO 04/30/24 08:59 500 mg BID ASHISH Administration Plan Summary: The patient is a 78-year-old female with a past medical history of hypothyroidism, hypertension, JACKIE, asthma, depression, dementia, recurrent UTI, and is status post hemicolectomy with ileostomy admitted for acute uremic encephalopathy, stage III acute kidney injury, sepsis secondary to UTI versus intra-abdominal abscess. #Sepsis, secondary to #E.Coli UTI-treated #Possible intra-abdominal abscess- ruled out #History of recurrent UTI CT A/P prelim report shows possible intra-abdominal abscess. Patient reports dysuria and cloudy urine, noted to have recurrent UTIs. Most recent urine cultures positive for E. coli, pansensitive. WBC on admission-20.9 Additionally, patient is on IV Zosyn for sepsis management. General surgeon Dr. Flynn consulted, recommends to continue wound care Patient was evaluated by the general surgeon Dr. Flynn who is considering takedown of the ileostomy following a CT scan with contrast which will be done when renal function is much better. For this reason, we will leave the TDC in for possible dialysis postcontrast CT. CT to be done on Wednesday Otherwise, patient is still on ceftriaxone and metronidazole. 04/02/2024- Patient had incision and drainage done yesterday by Dr. Flynn, expressed approximately 20 cc of p.o., wound was irrigated with saline and packed, patient tolerated procedure well. Today at bedside, patient's does not complain of abdominal pain and is tolerating her oral diet. Abdominal exam shows a colostomy bag with dressing, some leak around it but no tenderness to palpation. Repeat blood cultures preliminary are negative. WBC downtrending, 13.3 today. Will de-escalate antibiotics and stop IV Zosyn, continue on doxycycline for 5 more days. Surgery recommendations appreciated, anticipate surgery in 3 days. Plan: -DC IV Zosyn -Continue doxycycline 100mg BID ?General Surgeon Dr. 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 Had left-sided weakness which has resolved. Teleneuro was consulted, stroke alert was called. CT head and CTA negative for any acute findings. Patient was evaluated by Neurologist Dr Brush yesterday, who suspects that patient might have complex partial seizures and recommended doubling valproate dose in place of Keppra due to better side effect profile. Plan -Continue Valproate to 500mg twice daily -Seizure precautions -Holding memantine -Neurology consulted, appreciate recommendations #Acute encephalopathy uremic vs infections-resolved #Acute kidney injury-resolved #Increased ileostomy output Decreased p.o. intake in the last 2 to 3 days with nausea and vomiting and presence of ileostomy, thus likely prerenal. However, given extensive elevation in creatinine and drop in GFR other etiologies cannot be excluded. Initial creatinine 9.5 (BL 1.0), BUN 121. Will have received total of 3.5 L of IVF. On admission, patient was noted to have hyperkalemia, increased BUN and creatinine of up to 9.5 as well as hyperphosphatemia. UA was positive for UTI, CT abdomen pelvis showed some suspicion for intra-abdominal abscess. The patient was given 3.5 L of NS and 1 dose of ceftriaxone and admitted for management of sepsis secondary to UTI versus intra-abdominal abscess. On review today, patient's potassium was found to be 6.6 and she was started on a hyperkalemic protocol-5 units of insulin, D50 and given 800 mg of sevelamer. Clinically, she no longer has episodes of vomiting or nausea and mentation is back to baseline. Nephrology was consulted for urgent hemodialysis. BUN and creatinine still showing significant improvement, creatinine is 1.2 today, GFR 46 Patient having increased output from ileostomy, Pending CT with contrast of abdomen prior to possible ileostomy reversal by general surgeon Dr. Flynn. 04/02/2024- BUN and creatinine at 40 and 1.5 .Stool C.diff negative Plan: -CT Loperamide 10mg TID -Encourage increased oral intake -Continue to monitor CMP -Avoid nephrotoxins -Renally dose medications -Consulted general surgery appreciate recommendations -Consulted nephrology, appreciate recommendations #Electrolyte imbalances #Hyponatremia-resolved #Hyperkalemia-resolved #Hypochloremia-resolved #Hypocalcemia-resolved #Hyperphosphatemia-resolved #Hypomagnesemia-resolved -Hyperkalemic protocol initiated with 5 units of insulin, D50 and sevelamer as well as albuterol on admission. -Urgent dialysis indicated on admission, patient had temporary catheter placement. -Holding dialysis for now as renal function is improving Plan: ? Nephrology consulted, following recommendations ? Continue to monitor CMP #History of hypothyroidism Plan ? Resume home medication levothyroxine 125 mcg before breakfast #History of hypertension Plan ? Resume home med- Metoprolol tartrate 25mg BID -Hydralazine 10mg Q6HR PRN for SBP >160 #History of depression #History of dementia #History of bipolar disorder #History of anxiety Plan ? Resume home medications donepezil and memantine -Resumed home valproate 500mg (10ml) at bedtime #History of obstructive sleep apnea Plan ? CPAP at bedtime as needed #History of asthma Plan ? DuoNebs every 4 hours breathing treatment as needed DVT prophylaxis: Subcutaneous heparin GI prophylaxis: Not indicated Diet: Dysphagia 1?pur?ed Lines: Peripheral IV Code status: Full code Case was discussed with senior resident Dr Rick and attending physician, Dr Natalio Guerrero MD PGY-1
--- NOTE | 2024-04-02 12:49 | PD.ADDPROG ---
Addendum Progress Note Addendum Date of report being addended: 04/02/24 Narrative: Face to face evaluation was performed by me. I have personally seen and examined the patient. I discussed the assessment and plan with the entire medicine team. I reviewed available medical records, imaging studies, laboratory results. I agree with the above subjective data, objective findings, assessment and plan except as corrected by me or noted below Abdominal wall infection, colostomy present, acute UTI, cystitis Seizure disorder Acute kidney injury, likely dehydration and possible ATN requiring hemodialysis, improved for now. -Patient looks about the same, denies any acute issues. Rounded with team -TDC catheter in place in case she requires dialysis, might need to have CT abdomen with contrast will follow surgery recommendations -Looks like plan for colostomy takedown in few days by surgery, will follow recommendations -Status post bedside incision and drainage per surgery on 04/01/2024, stop IV Zosyn plan for p.o. doxycycline twice daily for another 5 days. Other option could be Augmentin. -Monitor labs, vitals, clinical course closely DVT prophylaxis with subcu heparin
[2024-04-02] MEDS: SODIUM CHLORIDE 0.9% 1000 ML 1,000 ML 60 ML IV (14:30)
--- NOTE | 2024-04-02 15:39 | PD.NEPHPROG ---
Documentation for date of: 04/02/24 Subjective Subjective Interval history: 78 y/o F with PMHx significant for hypothyroidism, hypertension, JACKIE, asthma, depression, dementia, recurrent UTI, and is status post hemicolectomy with ileostomy presents with altered mental status and nausea and vomiting. Patient initially presented to ED with altered mentation and was not able to provide history. Subsequently given 2.5 L of fluids per sepsis protocol and mentation slowly improved. Upon evaluation, patient endorsed 2 to 3 days of nausea and vomiting along with decreased p.o. intake. Also endorses abdominal pain at ileostomy site, decreased ileostomy output, as well as dysuria and cloudy urine but denies fever or chills. Otherwise also denies shortness of breath or chest discomfort. Of note, patient recently discharged on 02/15 for ileostomy leakage/malfunction. CT head unremarkable. CT A/P showed Soft tissue mass in the anterior abdominal wall 2.8 x 2.2 cm and aggregate of small bowel versus abscess in the right lower abdomen poorly defined, at least 4 cm in dimension. Patient recieved IVF, magnesisum, zosyn and rocephin in ED. Labs showed sodium 125, potassium 6.6, BUN 134, Litigation Coordinator 9.3, eGFR 4, Corrected Ca 8.3, phos 10.7, Mg 1.1. Patient has no known history CKD. On exam patient was lethargic but responsive, followed commands, A&Ox3. Appears euvolemic. Nephrology consulted for acute renal failure, plan for emergent dialysis. 03/22: Patient seen and examined in bed. Patient remains lethargic. Signs of leaking around ileostomy bag. Labs significantly improved after dialysis session yesterday. Sodium 129, potassium 4.1, bicarb 25.4, BUN 62, creatinine 2.6, eGFR 12. Plan for dialysis today. Prelim urine culture positive for gram-negative rods. Patient currently on Zosyn. 03/23: Patient seen and examined in bed. Patient is somewhat lethargic but improved from before. Sodium 135, potassium 3.7, bicarb 28.7, BUN 35, creatinine 2.2, eGFR 22. Will give 1 L normal saline at 70 mL/h and 40 mEq potassium p.o. No plans for dialysis today. 03/24/2024 patient currently seen in telemetry. More alert and awake. Patient has more than a liter of urine output although 1800 colostomy losses. Blood pressure 144/62, heart rate 83. WBC 12.8, hemoglobin 9.1, platelets 329. Sodium 139, potassium 4.2, BUN 43, creatinine 2.1, phosphorus 2.2, magnesium 1.7 Primary team wanted to do CT abdomen with contrast. Dr. Flynn suggested can hold CT with contrast for 1 to 2 days. 1 L IV fluids given. Will monitor renal function closely. No need for dialysis today. However to for the weekend will leave Vas-Cath. 04/02/2024 patient currently seen in medical floor. Resting comfortably. Still having significant colostomy losses. CT abdomen with contrast results reviewed. Labs, medications reviewed. Patient feeling much better. Encouraged encourage p.o. fluids. Dialysis catheter was removed. Still leaking around the colostomy site. Surgeon on the case. s/p I&D - abscess. On gentle IV fluids. Creatinine 1.4. Possible surgery next week. Review of Systems Review of Systems Narrative Review of Systems: CONSTITUTIONAL: Patient denies any fever, chills. Patient feeling much better HEENT: Denies any visual disturbances or hearing problems. CARDIOVASCULAR: Patient denies any chest pain, shortness of breath, swelling in the lower extremities. PULMONARY: Patient denies any shortness of breath, cough. GASTROINTESTINAL: patient complaining of discomfort around the colostomy site. Leakage noted. GENITOURINARY: Patient denies any urinary symptoms of burning or frequency or hematuria, denies any form in the urine. SKIN: Denies any rash. MUSCULOSKELETAL: Gait imbalance NEUROLOGICAL: Denies any neurological problems of strokes, seizures or confusion. Denies any memory problems. Exam Vital Signs Temp Pulse Resp BP Pulse Ox O2 Del Method O2 Flow Rate 36.3 C 93 19 137/65 H 94 L Nasal Cannula 2 04/02/24 12:00 04/02/24 12:00 04/02/24 12:00 04/02/24 12:00 04/02/24 12:00 04/02/24 12:04/02/24 12:00 Narrative Exam PE: Gen: Well-developed and well-nourished. Elderly frail lady. HEENT: NCAT, PERRLA, EOMI, MMM, anicteric conjunctivae. CVS: normal S1 and S2. RRR. No M/R/G. Resp: Diffuse coarse lung sounds. Abd: soft, non-tender, non-distended. Illeostomy, signs of leaking. MSK: Good ROM in BUE & BLE. No edema or rash. Neuro: CN II-XII grossly intact. Strength 4/5 in BUE & BLE. Alert and oriented x3. Objective Labs 04/02/24 05:34 04/02/24 05:34 Labs: Laboratory Results - last 24 hr 04/01/24 04/02/24 16:04 05:34 WBC 13.3 H RBC 3.58 L Hgb 10.1 L Hct 31.8 L MCV 89 MCH 28.2 MCHC 31.8 RDW Std Deviation 53.5 H Plt Count 420 D Neut % (Auto) 68 Lymph % (Auto) 19 [place] % (Auto) 9 Eos % (Auto) 3 Baso % (Auto) 1 Neut # (Auto) 9.0 H Lymph # (Auto) 2.5 [place] # (Auto) 1.1 H Eos # (Auto) 0.4 Baso # (Auto) 0.1 Immature Gran # (Auto) 0.11 H Absolute Nucleated RBC 0.00 Immature Gran % 1 H Nucleated RBC % 0 Sodium 135 L Potassium 4.9 4.6 Chloride 97 L Carbon Dioxide 28.1 Anion Gap 10 BUN 40 H Creatinine 1.5 H Estim Creat Clear Calc 26.3 L eGFR 35 L BUN/Creatinine Ratio 27 H Glucose 129 H D Calculated Osmolality 281 Calcium 9.0 Corrected Calcium 9.5 Phosphorus 3.2 Magnesium 1.8 Total Bilirubin 0.3 AST 15 ALT 8 L Alkaline Phosphatase 270 H D Total Protein 6.8 Albumin 3.4 Globulin 3.4 Albumin/Globulin Ratio 1.0 L ABG Interpretation ABG results: 03/21/24 05:40 ABG pH 7.35 ABG pCO2 41 ABG pO2 121 H ABG HCO3 23 ABG O2 Saturation 99 H ABG Base Excess -3 Assessment & Plan Assessment and plan (1) New onset seizure: Status: Acute Additional Assessment & Plan Additional Plan: 78 y/o F with PMHx significant for hypothyroidism, hypertension, JACKIE, asthma, depression, dementia, recurrent UTI, and is status post hemicolectomy with ileostomy admitted for acute uremic encephalopathy, stage III acute kidney injury, sepsis secondary to UTI versus intra-abdominal abscess. #Acute kidney injury-suspect patient in ischemic ATN Patient received 2 dialysis treatments and started to make good urine. Dialysis was discontinued and catheter removed. Creatinine improved to 1.5, sodium 135.-s/p CT abdomen with IV contrast . Continue with oral hydration. As needed IV hydration. Plan of care discussed with primary team -Avoid nephrotoxins -Renally dose medications -daily labs #Sepsis, secondary to GI/UTI-on antibiotics.. plan of care discussed with primary team, Dr. Flynn-pending surgical intervention for leaking ileostomy #UTI, gram-negative rods #Electrolyte imbalances #Hypothyroidism #Hypertension #Depression #Dementia Management as per primary team.
[2024-04-02] MEDS: DONEPEZIL HCL 5 MG TABLET 10 MG PO (21:11)
--- NOTE | 2024-04-02 23:39 | PD.VPROG1 ---
Telemedicine visit statement This visit was conducted with the use of phone was obtained on 04/02/24 at 2339. Documentation for date of: 04/02/24 Subjective Subjective Interval history: Patient is in telemetry. No new symptoms reported. Focal seizure-like activity involving the left upper extremity without any loss of consciousness intermittently noted. Virtual exam Vital Signs Temp Pulse Resp BP Pulse Ox O2 Del Method O2 Flow Rate 97.7 F 81 25 H 129/99 H 100 Nasal Cannula 1 04/02/24 20:00 04/02/24 21:10 04/02/24 20:00 04/02/24 21:10 04/02/24 20:00 04/02/24 20:00 04/02/24 20:00 Objective Labs 04/02/24 05:34 04/02/24 05:34 Labs: Laboratory Results - last 24 hr 04/02/24 05:34 WBC 13.3 H RBC 3.58 L Hgb 10.1 L Hct 31.8 L MCV 89 MCH 28.2 MCHC 31.8 RDW Std Deviation 53.5 H Plt Count 420 D Neut % (Auto) 68 Lymph % (Auto) 19 [place] % (Auto) 9 Eos % (Auto) 3 Baso % (Auto) 1 Neut # (Auto) 9.0 H Lymph # (Auto) 2.5 [place] # (Auto) 1.1 H Eos # (Auto) 0.4 Baso # (Auto) 0.1 Immature Gran # (Auto) 0.11 H Absolute Nucleated RBC 0.00 Immature Gran % 1 H Nucleated RBC % 0 Sodium 135 L Potassium 4.6 Chloride 97 L Carbon Dioxide 28.1 Anion Gap 10 BUN 40 H Creatinine 1.5 H Estim Creat Clear Calc 26.3 L eGFR 35 L BUN/Creatinine Ratio 27 H Glucose 129 H D Calculated Osmolality 281 Calcium 9.0 Corrected Calcium 9.5 Phosphorus 3.2 Magnesium 1.8 Total Bilirubin 0.3 AST 15 ALT 8 L Alkaline Phosphatase 270 H D Total Protein 6.8 Albumin 3.4 Globulin 3.4 Albumin/Globulin Ratio 1.0 L ABG Interpretation ABG results: 03/21/24 05:40 ABG pH 7.35 ABG pCO2 41 ABG pO2 121 H ABG HCO3 23 ABG O2 Saturation 99 H ABG Base Excess -3 Assessment & Plan Assessment (1) New onset seizure: still with intermittent episodes reported. Even though the EEG was negative for epileptiform discharges and MRI brain showed only chronic prominent microvascular ischemic changes without any acute infarction, will continue with Depakote , but will increase to 750 mg twice a day. Noted her kidney function is low and liver enzymes are normal. Liver ultrasound showed fatty infiltration but no other liver lesions. She is waiting for revision of colostomy on wednesday.
[2024-04-03] VITALS (12 sets, daily range): BP systolic 99–139; BP diastolic 48–86; PULSE 67–96; RESP 17–22; TEMP 35.9–36.8; O2SAT 94–99
[2024-04-03] MEDS: LEVOTHYROXINE SODIUM 112 MCG, LEVOTHYROXINE SODIUM 25 MCG 137 MCG PO (05:32)
[2024-04-03 06:05] LABS: Basophils # (Auto) 0.1 Thou/mm3 (0.0-0.2); Basophils % (Auto) 1 % (0-2.5); Eosinophils # (Auto) 0.3 Thou/mm3 (0.0-0.5); Eosinophils % (Auto) 3 % (0-10); Hematocrit 29.7 % (36.0-46.0); Hemoglobin 9.5 g/dL (12.0-16.0); Immature Granulocytes % (Auto) 1 % (0-0); Immature Granulocytes Auto 0.13 Thou/mm3 (0.00-0.00); Lymphocytes # (Auto) 3.2 Thou/mm3 (1.0-4.8); Lymphocytes % (Auto) 35 % (10-50); Mean Corpuscular Hemoglobin 28.4 pg (25.0-35.0); Mean Corpuscular Volume 89 fL (80-100); Monocytes # (Auto) 0.9 Thou/mm3 (0.0-0.8); Monocytes % (Auto) 9 % (0-12); Neutrophils # (Auto) 4.7 Thou/mm3 (1.8-7.7); Neutrophils % (Auto) 51 % (37-80); Nucleated Red Blood Cell % 0 /100 WBC (0); Platelet Count 475 Thou/mm3 (140-440); RDW Standard Deviation 53.9 fL (36.4-46.3); Red Blood Count 3.34 Miln/mm3 (4.00-5.20); White Blood Count 9.2 Thou/mm3 (3.6-11.0)
[2024-04-03 07:10] LABS: Alanine Aminotransferase 8 U/L (10-49); Albumin, Serum 3.4 gm/dL (3.4-4.8); Alkaline Phosphatase 337 U/L (46-116); Anion Gap 10 (7-16); Aspartate Amino Transferase 11 U/L (0-34); BUN/Creatinine Ratio 25 Ratio (12-20); Bilirubin,Total 0.3 mg/dL (0.3-1.2); Blood Urea Nitrogen 43 mg/dL (9-23); Calcium 8.9 mg/dL (8.3-10.6); Calcium (Corrected) 9.4 mg/dL (8.5-10.1); Carbon Dioxide 27.3 mMol/L (20.0-31.0); Chloride 95 mMol/L (98-107); Creatinine (Component) 1.7 mg/dL (0.6-1.3); Estimated Creatinine Clearance 25.6 mL/min (>60); Globulin 3.4 gm/dL (2.3-3.5); Glucose 88 mg/dL (74-106); Magnesium 1.4 mg/dL (1.6-2.6); Osmolality,Calculated 274 (275-295); Phosphorous 3.3 mg/dL (2.4-5.1); Potassium 4.8 mMol/L (3.4-5.1); Sodium 132 mMol/L (136-145); Total Protein 6.8 gm/dL (5.7-8.2); eGFR 30 See Note
[2024-04-03 07:29] LABS: Levetiracetam (Keppra)* 75.1 mcg/mL (6.0-46.0)
--- NOTE | 2024-04-03 08:42 | PD.NEPHPROG ---
Documentation for date of: 04/03/24 Subjective Subjective Interval history: 78 y/o F with PMHx significant for hypothyroidism, hypertension, JACKIE, asthma, depression, dementia, recurrent UTI, and is status post hemicolectomy with ileostomy presents with altered mental status and nausea and vomiting. Patient initially presented to ED with altered mentation and was not able to provide history. Subsequently given 2.5 L of fluids per sepsis protocol and mentation slowly improved. Upon evaluation, patient endorsed 2 to 3 days of nausea and vomiting along with decreased p.o. intake. Also endorses abdominal pain at ileostomy site, decreased ileostomy output, as well as dysuria and cloudy urine but denies fever or chills. Otherwise also denies shortness of breath or chest discomfort. Of note, patient recently discharged on 02/15 for ileostomy leakage/malfunction. CT head unremarkable. CT A/P showed Soft tissue mass in the anterior abdominal wall 2.8 x 2.2 cm and aggregate of small bowel versus abscess in the right lower abdomen poorly defined, at least 4 cm in dimension. Patient recieved IVF, magnesisum, zosyn and rocephin in ED. Labs showed sodium 125, potassium 6.6, BUN 134, Sander And Buffer 9.3, eGFR 4, Corrected Ca 8.3, phos 10.7, Mg 1.1. Patient has no known history CKD. On exam patient was lethargic but responsive, followed commands, A&Ox3. Appears euvolemic. Nephrology consulted for acute renal failure, plan for emergent dialysis. 04/03/2024 patient currently seen in medical floor. Resting comfortably. Still having significant colostomy losses. CT abdomen with contrast results reviewed. Labs, medications reviewed. Patient feeling much better. Encouraged encourage p.o. fluids. Dialysis catheter was removed. Still leaking around the colostomy site. Surgeon on the case. s/p I&D - abscess. On gentle IV fluids. Creatinine 1.4. Possible surgery this week. Renal giordano no further recommendations. Will follow as needed. Review of Systems Review of Systems Narrative Review of Systems: CONSTITUTIONAL: Patient denies any fever, chills. Patient feeling much better HEENT: Denies any visual disturbances or hearing problems. CARDIOVASCULAR: Patient denies any chest pain, shortness of breath, swelling in the lower extremities. PULMONARY: Patient denies any shortness of breath, cough. GASTROINTESTINAL: patient complaining of discomfort around the colostomy site. Leakage noted. GENITOURINARY: Patient denies any urinary symptoms of burning or frequency or hematuria, denies any form in the urine. SKIN: Denies any rash. MUSCULOSKELETAL: Gait imbalance NEUROLOGICAL: Denies any neurological problems of strokes, seizures or confusion. Denies any memory problems. Exam Vital Signs Temp Pulse Resp BP Pulse Ox O2 Del Method O2 Flow Rate 36.3 C 74 19 116/48 L 98 Nasal Cannula 1 04/03/24 08:00 04/03/24 08:00 04/03/24 08:00 04/03/24 08:00 04/03/24 08:00 04/03/24 08:00 04/03/24 08:00 Narrative Exam PE: Gen: Well-developed and well-nourished. Elderly frail lady. HEENT: NCAT, PERRLA, EOMI, MMM, anicteric conjunctivae. CVS: normal S1 and S2. RRR. No M/R/G. Resp: Diffuse coarse lung sounds. Abd: soft, non-tender, non-distended. Illeostomy, signs of leaking. MSK: Good ROM in BUE & BLE. No edema or rash. Neuro: CN II-XII grossly intact. Strength 4/5 in BUE & BLE. Alert and oriented x3. Objective Labs 04/03/24 05:24 04/03/24 05:24 Labs: Laboratory Results - last 24 hr 03/28/24 04/03/24 07:38 05:24 WBC 9.2 RBC 3.34 L Hgb 9.5 L Hct 29.7 L MCV 89 MCH 28.4 MCHC 32.0 RDW Std Deviation 53.9 H Plt Count 475 H D Neut % (Auto) 51 Lymph % (Auto) 35 [place] % (Auto) 9 Eos % (Auto) 3 Baso % (Auto) 1 Neut # (Auto) 4.7 Lymph # (Auto) 3.2 [place] # (Auto) 0.9 H Eos # (Auto) 0.3 Baso # (Auto) 0.1 Immature Gran # (Auto) 0.13 H Absolute Nucleated RBC 0.00 Immature Gran % 1 H Nucleated RBC % 0 Sodium 132 L Potassium 4.8 Chloride 95 L Carbon Dioxide 27.3 Anion Gap 10 BUN 43 H Creatinine 1.7 H Estim Creat Clear Calc 25.6 L eGFR 30 L BUN/Creatinine Ratio 25 H Glucose 88 Calculated Osmolality 274 L Calcium 8.9 Corrected Calcium 9.4 Phosphorus 3.3 Magnesium 1.4 L Total Bilirubin 0.3 AST 11 ALT 8 L Alkaline Phosphatase 337 H D Total Protein 6.8 Albumin 3.4 Globulin 3.4 Albumin/Globulin Ratio 1.0 L Levetiracetam 75.1 H ABG Interpretation ABG results: 03/21/24 05:40 ABG pH 7.35 ABG pCO2 41 ABG pO2 121 H ABG HCO3 23 ABG O2 Saturation 99 H ABG Base Excess -3 Assessment & Plan Assessment and plan (1) New onset seizure: Status: Acute Additional Assessment & Plan Additional Plan: 78 y/o F with PMHx significant for hypothyroidism, hypertension, JACKIE, asthma, depression, dementia, recurrent UTI, and is status post hemicolectomy with ileostomy admitted for acute uremic encephalopathy, stage III acute kidney injury, sepsis secondary to UTI versus intra-abdominal abscess. #Acute kidney injury-suspect patient in ischemic ATN Patient received 2 dialysis treatments and started to make good urine. Dialysis was discontinued and catheter removed. Creatinine improved to 1.5, sodium 135.-s/p CT abdomen with IV contrast . Continue with oral hydration. As needed IV hydration. Plan of care discussed with primary team -Avoid nephrotoxins -Renally dose medications -daily labs #Sepsis, secondary to GI/UTI-on antibiotics.. plan of care discussed with primary team, Dr. Flynn-pending surgical intervention for leaking ileostomy #UTI, gram-negative rods #Electrolyte imbalances #Hypothyroidism #Hypertension #Depression #Dementia Management as per primary team. Renal will see as needed. Thank you for the consult. Quality - progress note Quality Measures Quality Measures: VTE prophylaxis Reason for Continued Stay Reason for Continued Stay: further monitoring
--- NOTE | 2024-04-03 08:57 | PC.SS ---
Follow up note: Pt will have Reverse Ileostomy.
[2024-04-03] MEDS: VALPROIC ACID SYRUP 250 MG/5 ML UDC 750 MG PO ×2 (09:02→21:17)
[2024-04-03] MEDS: METOPROLOL TARTRATE 25 MG TABLET PO ×2 (09:02→21:17)
[2024-04-03] MEDS: DOXYCYCLINE 100 MG TABLET PO ×2 (09:02→21:18)
[2024-04-03] MEDS: HEPARIN SOD INJ 5000 UNIT/ML VIAL SC ×2 (09:05→21:18)
[2024-04-03] MEDS: SODIUM CHLORIDE 0.9% 500 ML 500 ML 999 ML IV (10:39)
--- NOTE | 2024-04-03 13:25 | PD.RESPRO ---
Documentation for date of: 04/03/24 Subjective Subjective Interval history: Overnight events, lab/imaging results, and notes reviewed. Patient examined bedside, reports feeling well without complains this morning. Blood cultures negative on 48 hour reads, will continue doxycycline, pending reverse ileostomy with general surgery possibly on 04/05. Neurology team following, depakote has been adjusted to 750mg bid. Creatinine noted to uptrend today 1.7 from 1.5 yesterday, will give 500 cc NS bolus, nephrology team following. Exam Vital Signs Temp Pulse Resp BP Pulse Ox O2 Del Method O2 Flow Rate 97.0 F 73 19 120/49 L 99 Nasal Cannula 1 04/03/24 12:00 04/03/24 12:00 04/03/24 12:00 04/03/24 12:00 04/03/24 12:00 04/03/24 12:00 04/03/24 12:00 Narrative Exam General: Alert and oriented, cooperative, in no acute distress HEENT: Atraumatic/normocephalic, JANNETTE, neck supple Heart: RRR, S1 and S2 without clicks or murmurs Lungs: Clear on auscultation bilaterally Abdomen: Colostomy bag in place covered with towel, minimal surrounding erythema. Neuro: No focal neurological deficits noted on appearance Objective Labs 04/03/24 05:24 04/03/24 05:24 Labs: Laboratory Results - last 24 hr 03/28/24 04/03/24 07:38 05:24 WBC 9.2 RBC 3.34 L Hgb 9.5 L Hct 29.7 L MCV 89 MCH 28.4 MCHC 32.0 RDW Std Deviation 53.9 H Plt Count 475 H D Neut % (Auto) 51 Lymph % (Auto) 35 [place] % (Auto) 9 Eos % (Auto) 3 Baso % (Auto) 1 Neut # (Auto) 4.7 Lymph # (Auto) 3.2 [place] # (Auto) 0.9 H Eos # (Auto) 0.3 Baso # (Auto) 0.1 Immature Gran # (Auto) 0.13 H Absolute Nucleated RBC 0.00 Immature Gran % 1 H Nucleated RBC % 0 Sodium 132 L Potassium 4.8 Chloride 95 L Carbon Dioxide 27.3 Anion Gap 10 BUN 43 H Creatinine 1.7 H Estim Creat Clear Calc 25.6 L eGFR 30 L BUN/Creatinine Ratio 25 H Glucose 88 Calculated Osmolality 274 L Calcium 8.9 Corrected Calcium 9.4 Phosphorus 3.3 Magnesium 1.4 L Total Bilirubin 0.3 AST 11 ALT 8 L Alkaline Phosphatase 337 H D Total Protein 6.8 Albumin 3.4 Globulin 3.4 Albumin/Globulin Ratio 1.0 L Levetiracetam 75.1 H ABG Interpretation ABG results: 03/21/24 05:40 ABG pH 7.35 ABG pCO2 41 ABG pO2 121 H ABG HCO3 23 ABG O2 Saturation 99 H ABG Base Excess -3 Quality Measures Quality Measures VTE prophylaxis and sepsis Current suspected stage: ruled out (Sepsis has been treated) Possible source: skin/soft tissue Blood cultures ordered: yes Antibiotic ordered: Yes Advance care planning discussed with:: patient Assessment & Plan Assessment Current Active Medications: Generic Name Dose Route Start Last Admin Trade Name Freq PRN Reason Stop Dose Admin Acetaminophen 650 mg 03/21/24 05:19 Acetaminophen 325 Mg Tablet PO 04/20/24 05:18 Q6H PRN Fever >101.5 Albuterol/Ipratropium 3 ml 03/21/24 15:51 Albuterol/Ipratropium (Duoneb) Rt Tia 3 Ml Nebu INH 04/20/24 18:59 Q4HRRT PRN Shortness of breath Dextrose 25 ml 03/31/24 09:56 Dextrose 50%-Water Inj 50 Ml Syringe IV 04/30/24 09:55 Q15MIN PRN BG 50-70 responsive npo pt Dextrose 50 ml 03/31/24 09:56 Dextrose 50%-Water Inj 50 Ml Syringe IV 04/30/24 09:55 Q15MIN PRN BG <50 OR BG <70 & pt unresponsive Donepezil HCl 10 mg 03/21/24 21:00 04/02/24 21:11 Donepezil Hcl 5 Mg Tablet PO 04/20/24 20:59 10 mg HS ASHISH Administration Doxycycline Hyclate 100 mg 04/01/24 09:30 04/03/24 09:02 Doxycycline 100 Mg Tablet PO 04/08/24 09:29 100 mg BID ASHISH Administration Glucagon 1 mg 03/31/24 09:56 Glucagon Inj 1 Mg Vial IM Q15MIN PRN BG <70, and no IV access Heparin Sodium (Porcine) 3,700 unit 03/21/24 17:43 03/21/24 20:09 Heparin Sod Inj 1000 Unit/Ml Vial 10 Ml INDWELLCAT 04/04/24 17:42 3,700 unit PRN PRN Administration DIALYSIS Heparin Sodium (Porcine) 5,000 unit 03/22/24 17:30 04/03/24 09:05 Heparin Sod Inj 5000 Unit/Ml Vial SC 04/05/24 17:29 5,000 unit Q12HR ASHISH Administration Hydralazine HCl 10 mg 03/21/24 15:45 Hydralazine Hcl 10 Mg Tablet PO 04/20/24 17:59 Q6HR PRN SBP>160 Albumin Human 25 gm in 100 mls @ 100 mls/min 03/21/24 10:54 Albuminar-25 Ivpb IV PRN PRN DIALYSIS Levothyroxine Sodium 112 mcg/ 137 mcg 03/21/24 07:30 04/03/24 05:32 Levothyroxine Sodium 25 mcg PO 04/20/24 07:29 137 mcg ACBR ASHISH Administration Memantine 10 mg 03/21/24 21:00 03/26/24 20:42 Memantine Hcl 5 Mg Tablet PO 04/20/24 20:59 10 mg BID ASHISH Administration Metoprolol Tartrate 25 mg 03/21/24 21:00 04/03/24 09:02 Metoprolol Tartrate 25 Mg Tablet PO 04/20/24 20:59 25 mg BID ASHISH Administration Ondansetron HCl 4 mg 03/21/24 06:08 Ondansetron Inj 2 Mg/Ml Inj 2 Ml IV 04/20/24 06:07 Q6H PRN NAUSEA OR VOMITING Protocol Sodium Chloride 3 ml 03/21/24 08:25 Sodium Chloride Rt Tia 0.9% 3 Ml Nebu INH 04/20/24 08:24 PRN PRN SOLN Valproic Acid 750 mg 04/03/24 09:00 04/03/24 09:02 Valproic Acid Syrup 250 Mg/5 Ml Udc PO 05/03/24 08:59 750 mg BID ASHISH Administration Plan Patient is a 78-year-old female with a past medical history of hypothyroidism, hypertension, JACKIE, asthma, depression, dementia, recurrent UTI, and is status post hemicolectomy with ileostomy admitted for acute uremic encephalopathy, stage III acute kidney injury, sepsis secondary to UTI versus intra-abdominal abscess. #Sepsis, secondary to #E.Coli UTI-treated #Intra-abdominal fluid collection, possible abscess or infection #History of recurrent UTI CT A/P 03/31: Fluid collection 5.4 x 4.0 x 2.2 cm in subcutaneous fatty tissue anterior pelvic wall, differentials include abcess and hematoma Patient reports dysuria and cloudy urine, noted to have recurrent UTIs. Most recent urine cultures positive for E. coli, pansensitive. WBC on admission-20.9 Additionally, patient is on IV Zosyn for sepsis management. General surgeon Dr. Flynn consulted, recommends to continue wound care Patient was evaluated by the general surgeon Dr. Flynn who is considering takedown of the ileostomy following a CT scan with contrast which will be done when renal function is much better. Patient had incision and drainage done 04/[address] Flynn, expressed approximately 20 cc of p.o., wound was irrigated with saline and packed, patient tolerated procedure well. Repeat blood cultures preliminary are negative. WBC downtrending, 13.3 today. Will de-escalate antibiotics and stop IV Zosyn, continue on doxycycline Surgery recommendations appreciated, anticipate surgery in 3 days. Plan: -Continue doxycycline 100mg BID ?General Surgeon Dr. 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 Had left-sided weakness which has resolved. Teleneuro was consulted, stroke alert was called. CT head and CTA negative for any acute findings. Patient was evaluated by Neurologist Dr Brush yesterday, who suspects that patient might have complex partial seizures and recommended doubling valproate dose in place of Keppra due to better side effect profile. Plan -Continue Valproate to 750mg twice daily -Seizure precautions -Holding memantine -Neurologist Dr. Brush consulted and following #Acute encephalopathy uremic vs infections-resolved #Acute kidney injury-resolved #Increased ileostomy output -CT Loperamide 10mg TID has been stopped -Encourage increased oral intake -Continue to monitor CMP -Avoid nephrotoxins -Renally dose medications -General surgeon Dr. Flynn and entry level lab technician Dr. Rahman following #Electrolyte imbalances #Hyponatremia-resolved #Hyperkalemia-resolved #Hypochloremia-resolved #Hypocalcemia-resolved #Hyperphosphatemia-resolved #Hypomagnesemia-resolved -Hyperkalemic protocol initiated with 5 units of insulin, D50 and sevelamer as well as albuterol on admission. -Urgent dialysis indicated on admission, patient had temporary catheter placement. -Holding dialysis for now as renal function is improving Plan: ? [employer] Dr. Rahman following ? Continue to monitor CMP #History of hypothyroidism Plan ? Resume home medication levothyroxine 125 mcg before breakfast #History of hypertension Plan ? Resume home med- Metoprolol tartrate 25mg BID -Hydralazine 10mg Q6HR PRN for SBP >160 #History of depression #History of dementia #History of bipolar disorder #History of anxiety Plan ? Resume home medications donepezil and memantine -Valproate 750mg BID #History of asthma Plan ? DuoNebs every 4 hours breathing treatment as needed DVT prophylaxis: Subcutaneous heparin GI prophylaxis: Not indicated Diet: Dysphagia 1?pur?ed Lines: Peripheral IV Code status: Full code Disposition: Pending reverse ileostomy procedure with general surgery, planned 04/05. Pending final blood cultures, on antibiotics. MAKENZIE worsening, nephrology following. Patient case discussed with attending physician Dr. Maru Rick DO PGY-3 Attending Provider Attestation/Addendum I have discussed and was present for the essential components of the history, physical examination, diagnosis, and treatment plan with the resident. I agree with the patient's care as documented by the resident and amended herein by me. Casey Mahoney DO. Patient seen and evaluated this AM. Blood pressure soft this morning, 99/51 mmHg, afebrile overnight, CBC unremarkable, BMP demonstrates a BUN of 43, slightly uptrending creatinine 1.7 today. Blood cultures negative, patient presently on Depakote 750 mg p.o. twice daily per neurology recommendations, ileostomy reversal scheduled for Wednesday, 04/05. Will continue to monitor closely Although this document has been carefully reviewed, there may still be some phonetic and other typographical errors. These errors are purely grammatical due to imperfections in the software program and should not be construed in any way to compromise the substance of the patient's medical care during this visit.
[2024-04-03] MEDS: DONEPEZIL HCL 5 MG TABLET 10 MG PO (21:17)
--- NOTE | 2024-04-03 23:51 | PD.NEUROPROG ---
Documentation for date of: 04/03/24 Subjective Subjective Interval history: Patient was seen in telemetry today. No new symptoms reported. She is tolerating oral diet well. Exam - Neurology Vital Signs Temp Pulse Resp BP Pulse Ox O2 Del Method O2 Flow Rate 98.2 F 85 19 139/84 H 98 Nasal Cannula 1 04/03/24 20:00 04/03/24 21:17 04/03/24 20:00 04/03/24 21:17 04/03/24 20:00 04/03/24 20:00 04/03/24 20:00 Narrative Exam GENERAL APPEARANCE: Well developed, well-nourished in no acute distress. HEENT: Normocephalic, atraumatic, extraocular movements intact. Pupils: Equal reacting to light NECK: Supple, no JVD or bruits. CARDIOVASULAR: Heart: S1, S2 heard, regular without S3-S4 or murmur no rubs or gallops. LUNGS/CHEST: Clear to auscultation bilaterally. No rails, rhonchi, or wheezing. Normal inspection. ABDOMEN: Soft, nontender, with normal bowel sounds. No pulsatile masses. No rebound, rigidity, or guarding. Normal inspection and palpation. EXTREMITIES: Normal inspection and palpation. No edema, clubbing or cyanosis. SKIN: Warm and dry without rashes. Normal inspection. MUSCULOSKELETAL: No cervical, thoracic, lumbar or midline bony tenderness. Normal inspection. NEURO: Alert, awake and oriented x3. Cranial nerves: II through XII grossly intact. Speech and language: Normal with no dysarthria or dysphasia. Motor system: Tone and bulk: Normal: Strength: Moves all 4 extremities; No pronator drift noted. Deep tendon reflexes: 2+ bilaterally symmetrical. Plantar reflex: Downgoing bilaterally. Sensory system: Intact to all modalities of sensation bilaterally. Coordination: Intact to [id number] and [id number] test bilaterally. No ataxia, no dysmetria, or dysdiadochokinesia noted. No intention tremors noted. Gait: Not tested. No signs of meningeal irritation noted. PSYCHIATRIC: Normal mood and affect. Objective Labs 04/03/24 05:24 04/03/24 05:24 Labs: Laboratory Results - last 24 hr 03/28/24 04/03/24 07:38 05:24 WBC 9.2 RBC 3.34 L Hgb 9.5 L Hct 29.7 L MCV 89 MCH 28.4 MCHC 32.0 RDW Std Deviation 53.9 H Plt Count 475 H D Neut % (Auto) 51 Lymph % (Auto) 35 [place] % (Auto) 9 Eos % (Auto) 3 Baso % (Auto) 1 Neut # (Auto) 4.7 Lymph # (Auto) 3.2 [place] # (Auto) 0.9 H Eos # (Auto) 0.3 Baso # (Auto) 0.1 Immature Gran # (Auto) 0.13 H Absolute Nucleated RBC 0.00 Immature Gran % 1 H Nucleated RBC % 0 Sodium 132 L Potassium 4.8 Chloride 95 L Carbon Dioxide 27.3 Anion Gap 10 BUN 43 H Creatinine 1.7 H Estim Creat Clear Calc 25.6 L eGFR 30 L BUN/Creatinine Ratio 25 H Glucose 88 Calculated Osmolality 274 L Calcium 8.9 Corrected Calcium 9.4 Phosphorus 3.3 Magnesium 1.4 L Total Bilirubin 0.3 AST 11 ALT 8 L Alkaline Phosphatase 337 H D Total Protein 6.8 Albumin 3.4 Globulin 3.4 Albumin/Globulin Ratio 1.0 L Levetiracetam 75.1 H ABG Interpretation ABG results: 03/21/24 05:40 ABG pH 7.35 ABG pCO2 41 ABG pO2 121 H ABG HCO3 23 ABG O2 Saturation 99 H ABG Base Excess -3 Assessment & Plan Assessment and plan (1) New onset seizure: Status: Acute Assessment and plan: Most likely secondary to metabolic encephalopathy: Sepsis, urinary tract infection from E. coli, dehydration, acute kidney injury, hyponatremia. No recurrent episodes reported. continue with Depakote to 500 mg twice a day. Noted her kidney function is low and liver enzymes are normal. Liver ultrasound showed fatty infiltration but no other liver lesions. Neurology will sign off and reconsult if needed.
[2024-04-04] VITALS (10 sets, daily range): BP systolic 103–150; BP diastolic 58–82; PULSE 67–102; RESP 15–21; TEMP 36.2–36.6; O2SAT 94–100
[2024-04-04] MEDS: LEVOTHYROXINE SODIUM 112 MCG, LEVOTHYROXINE SODIUM 25 MCG 137 MCG PO (05:10)
[2024-04-04 05:53] LABS: Basophils # (Auto) 0.1 Thou/mm3 (0.0-0.2); Basophils % (Auto) 1 % (0-2.5); Eosinophils # (Auto) 0.1 Thou/mm3 (0.0-0.5); Eosinophils % (Auto) 1 % (0-10); Hematocrit 30.1 % (36.0-46.0); Hemoglobin 9.7 g/dL (12.0-16.0); Immature Granulocytes % (Auto) 2 % (0-0); Immature Granulocytes Auto 0.15 Thou/mm3 (0.00-0.00); Lymphocytes # (Auto) 2.3 Thou/mm3 (1.0-4.8); Lymphocytes % (Auto) 33 % (10-50); Mean Corpuscular HGB Conc 32.2 g/dl (31.0-37.0); Mean Corpuscular Hemoglobin 28.4 pg (25.0-35.0); Mean Corpuscular Volume 88 fL (80-100); Monocytes # (Auto) 0.7 Thou/mm3 (0.0-0.8); Monocytes % (Auto) 11 % (0-12); Neutrophils # (Auto) 3.7 Thou/mm3 (1.8-7.7); Neutrophils % (Auto) 53 % (37-80); Nucleated Red Blood Cell % 0 /100 WBC (0); Platelet Count 496 Thou/mm3 (140-440); RDW Standard Deviation 52.9 fL (36.4-46.3); Red Blood Count 3.42 Miln/mm3 (4.00-5.20)
[2024-04-04 06:34] LABS: Anion Gap 8 (7-16); BUN/Creatinine Ratio 30 Ratio (12-20); Blood Urea Nitrogen 45 mg/dL (9-23); Calcium 9.2 mg/dL (8.3-10.6); Carbon Dioxide 28.5 mMol/L (20.0-31.0); Chloride 94 mMol/L (98-107); Creatinine (Component) 1.5 mg/dL (0.6-1.3); Estimated Creatinine Clearance 28.5 mL/min (>60); Glucose 94 mg/dL (74-106); Magnesium 1.4 mg/dL (1.6-2.6); Osmolality,Calculated 272 (275-295); Potassium 4.2 mMol/L (3.4-5.1); Sodium 130 mMol/L (136-145); eGFR 35 See Note
[2024-04-04] MEDS: VALPROIC ACID SYRUP 250 MG/5 ML UDC 750 MG PO ×2 (09:45→20:15)
[2024-04-04] MEDS: HEPARIN SOD INJ 5000 UNIT/ML VIAL SC ×2 (09:45→20:23)
[2024-04-04] MEDS: DOXYCYCLINE 100 MG TABLET PO ×2 (09:46→20:15)
[2024-04-04] MEDS: METOPROLOL TARTRATE 25 MG TABLET PO ×2 (09:46→20:15)
--- NOTE | 2024-04-04 10:18 | CHAP ---
Visited briefly with patient and had prayer.
[2024-04-04] MEDS: ONDANSETRON INJ 2 MG/ML INJ 2 ML 4 MG IV (12:59)
--- NOTE | 2024-04-04 14:30 | ESPR_ITS ---
<Statement entered by Lonnie Rick DO - 04/04/24 19:20> Senior attestation: Patient was examined and case was reviewed with team including attending physician. Note reviewed, I agree with most of its contents and agree with the patient's care. General surgeon Dr. Flynn following, surgery anticipated 04/05, will be NPO after midnight. Lonnie Rick DO PGY-3 Documentation for date of: 04/04/24 Subjective Subjective Interval history: Patient seen at bedside. No acute overnight events. Patient was said to have had 1 episode of vomiting upon eating breakfast today. She denies chest pain, abdominal pain and nausea and states that she did not feel any sort of discomfort even before she vomited. Still pending reverse ileostomy General Surgery, possibly on 04/05. Labs reviewed today, mild hyponatremia with sodium of 130, creatinine remains at 1.5 today. Will continue to monitor BMP, anticipate surgery tomorrow. Exam Vital Signs Temp Pulse Resp BP Pulse Ox O2 Del Method O2 Flow Rate 97.9 F 99 21 H 150/82 H 99 Nasal Cannula 1 04/04/24 12:00 04/04/24 12:00 04/04/24 12:00 04/04/24 12:00 04/04/24 12:00 04/04/24 12:00 04/04/24 12:00 Narrative Exam GENERAL: AAOX3 NEURO: PROCESS TECH grossly intact, moves extremities x4 HEENT: Dry mucosa. Eyes open, symmetrical, & clear CARDIO: No chest pain on palpation. Heart RRR, no obvious murmurs PULM: No noted coughing/dyspnea. Lungs CTA B/L GI: Abdomen soft, nondistended, mildly tender to palpation at umbilical region. Colostomy bag with content, minimal leak, cellulitis seen in surrounding area. BSx4 URO/PIT FURNACE MELTER:: No further abnormalities noted. SKIN/MSK/EXT: No wounds/rashes/edema/amputations, no pain on palpation. Pedal pulses present B/L Objective Labs 04/09/24 05:55 04/09/24 05:55 Labs: Laboratory Results - last 24 hr 04/04/24 05:04 WBC 7.0 RBC 3.42 L Hgb 9.7 L Hct 30.1 L MCV 88 MCH 28.4 MCHC 32.2 RDW Std Deviation 52.9 H Plt Count 496 H Neut % (Auto) 53 Lymph % (Auto) 33 [place] % (Auto) 11 Eos % (Auto) 1 Baso % (Auto) 1 Neut # (Auto) 3.7 Lymph # (Auto) 2.3 [place] # (Auto) 0.7 Eos # (Auto) 0.1 Baso # (Auto) 0.1 Immature Gran # (Auto) 0.15 H Absolute Nucleated RBC 0.00 Immature Gran % 2 H Nucleated RBC % 0 Sodium 130 L Potassium 4.2 D Chloride 94 L Carbon Dioxide 28.5 Anion Gap 8 BUN 45 H Creatinine 1.5 H Estim Creat Clear Calc 28.5 L eGFR 35 L BUN/Creatinine Ratio 30 H Glucose 94 Calculated Osmolality 272 L Calcium 9.2 Magnesium 1.4 L ABG Interpretation ABG results: 03/21/24 05:40 ABG pH 7.35 ABG pCO2 41 ABG pO2 121 H ABG HCO3 23 ABG O2 Saturation 99 H ABG Base Excess -3 Quality Measures Quality Measures VTE prophylaxis and sepsis Current suspected stage: sepsis Possible source: skin/soft tissue Blood cultures ordered: yes Antibiotic ordered: Yes Advance care planning discussed with:: patient Assessment & Plan Assessment Current Active Medications: Generic Name Dose Route Start Last Admin Trade Name Freq PRN Reason Stop Dose Admin Acetaminophen 650 mg 03/21/24 05:19 Acetaminophen 325 Mg Tablet PO 04/20/24 05:18 Q6H PRN Fever >101.5 Albuterol/Ipratropium 3 ml 03/21/24 15:51 Albuterol/Ipratropium (Duoneb) Rt Tia 3 Ml Nebu INH 04/20/24 18:59 Q4HRRT PRN Shortness of breath Dextrose 25 ml 03/31/24 09:56 Dextrose 50%-Water Inj 50 Ml Syringe IV 04/30/24 09:55 Q15MIN PRN BG 50-70 responsive npo pt Dextrose 50 ml 03/31/24 09:56 Dextrose 50%-Water Inj 50 Ml Syringe IV 04/30/24 09:55 Q15MIN PRN BG <50 OR BG <70 & pt unresponsive Donepezil HCl 10 mg 03/21/24 21:00 04/03/24 21:17 Donepezil Hcl 5 Mg Tablet PO 04/20/24 20:59 10 mg HS ASHISH Administration Doxycycline Hyclate 100 mg 04/01/24 09:30 04/04/24 09:46 Doxycycline 100 Mg Tablet PO 04/08/24 09:29 100 mg BID ASHISH Administration Glucagon 1 mg 03/31/24 09:56 Glucagon Inj 1 Mg Vial IM Q15MIN PRN BG <70, and no IV access Heparin Sodium (Porcine) 3,700 unit 03/21/24 17:43 03/21/24 20:09 Heparin Sod Inj 1000 Unit/Ml Vial 10 Ml INDWELLCAT 04/04/24 17:42 3,700 unit PRN PRN Administration DIALYSIS Heparin Sodium (Porcine) 5,000 unit 03/22/24 17:30 04/04/24 09:45 Heparin Sod Inj 5000 Unit/Ml Vial SC 04/05/24 17:29 5,000 unit Q12HR ASHISH Administration Hydralazine HCl 10 mg 03/21/24 15:45 Hydralazine Hcl 10 Mg Tablet PO 04/20/24 17:59 Q6HR PRN SBP>160 Albumin Human 25 gm in 100 mls @ 100 mls/min 03/21/24 10:54 Albuminar-25 Ivpb IV PRN PRN DIALYSIS Levothyroxine Sodium 112 mcg/ 137 mcg 03/21/24 07:30 04/04/24 05:10 Levothyroxine Sodium 25 mcg PO 04/20/24 07:29 137 mcg ACBR ASHISH Administration Memantine 10 mg 03/21/24 21:00 03/26/24 20:42 Memantine Hcl 5 Mg Tablet PO 04/20/24 20:59 10 mg BID ASHISH Administration Metoprolol Tartrate 25 mg 03/21/24 21:00 04/04/24 09:46 Metoprolol Tartrate 25 Mg Tablet PO 04/20/24 20:59 25 mg BID ASHISH Administration Ondansetron HCl 4 mg 03/21/24 06:08 04/04/24 12:59 Ondansetron Inj 2 Mg/Ml Inj 2 Ml IV 04/20/24 06:07 4 mg Q6H PRN Administration NAUSEA OR VOMITING Protocol Sodium Chloride 3 ml 03/21/24 08:25 Sodium Chloride Rt Tia 0.9% 3 Ml Nebu INH 04/20/24 08:24 PRN PRN SOLN Valproic Acid 750 mg 04/03/24 09:00 04/04/24 09:45 Valproic Acid Syrup 250 Mg/5 Ml Udc PO 05/03/24 08:59 750 mg BID ASHISH Administration Plan Summary: The patient is a 78-year-old female with a past medical history of hypothyroidism, hypertension, JACKIE, asthma, depression, dementia, recurrent UTI, and is status post hemicolectomy with ileostomy admitted for acute uremic encephalopathy, stage III acute kidney injury, sepsis secondary to UTI versus intra-abdominal abscess. 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 Flynn. Due to possible colostomy leakage/malfunction, the patient has been admitted about 3 times since the procedure was done. There is a plan for an ileostomy reversal to be done possibly on 04/05/2024. Plan: -General Surgery consulted, pressure recommendations -If procedure to be done tomorrow, n.p.o. at midnight and hold heparin. 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 Had left-sided weakness which has resolved. Teleneuro was consulted, stroke alert was called. CT head and CTA negative for any acute findings. Patient was evaluated by Neurologist Dr Brush yesterday, who suspects that patient might have complex partial seizures and recommended doubling valproate dose in place of Keppra due to better side effect profile. Plan -Continue Valproate 750mg twice daily -Seizure precautions -Holding memantine -Neurologist Dr. Brush consulted and following #Sepsis, secondary to #E.Coli UTI-treated #Intra-abdominal fluid collection, possible abscess or infection #History of recurrent UTI CT A/P 03/31: Fluid collection 5.4 x 4.0 x 2.2 cm in subcutaneous fatty tissue anterior pelvic wall, differentials include abcess and hematoma Patient reports dysuria and cloudy urine, noted to have recurrent UTIs. Most recent urine cultures positive for E. coli, pansensitive. WBC on admission-20.9 Additionally, patient is on IV Zosyn for sepsis management. General surgeon Dr. Flynn consulted, recommends to continue wound care Patient was evaluated by the general surgeon Dr. Flynn who is considering takedown of the ileostomy following a CT scan with contrast which will be done when renal function is much better. Patient had incision and drainage done 04/[address] Flynn, expressed approximately 20 cc of p.o., wound was irrigated with saline and packed, patient tolerated procedure well. Repeat blood cultures preliminary are negative. WBC downtrending, 13.3 today. Will de-escalate antibiotics and stop IV Zosyn, continue on doxycycline Surgery recommendations appreciated, anticipate surgery in 3 days. Plan: -Continue doxycycline 100mg BID ?General Surgeon Dr. Flynn consulted, following recommendations -Continue wound care -Continue to monitor CBC -Pending final blood culture, negative on 48 hour reads #Acute encephalopathy uremic vs infections-resolved #Acute kidney injury-resolved #Increased ileostomy output -CT Loperamide 10mg TID has been stopped -Encourage increased oral intake -Continue to monitor CMP -Avoid nephrotoxins -Renally dose medications -General surgeon Dr. Flynn and broadband technician Dr. Rahman following #Electrolyte imbalances #Hyponatremia-resolved #Hyperkalemia-resolved #Hypochloremia-resolved #Hypocalcemia-resolved #Hyperphosphatemia-resolved #Hypomagnesemia-resolved -Hyperkalemic protocol initiated with 5 units of insulin, D50 and sevelamer as well as albuterol on admission. -Urgent dialysis indicated on admission, patient had temporary catheter placement. -Holding dialysis for now as renal function is improving Plan: ? Radiology Technologist Dr. Rahman following ? Continue to monitor CMP #History of hypothyroidism Plan ? Resume home medication levothyroxine 125 mcg before breakfast #History of hypertension Plan ? Resume home med- Metoprolol tartrate 25mg BID -Hydralazine 10mg Q6HR PRN for SBP >160 #History of depression #History of dementia #History of bipolar disorder #History of anxiety Plan ? Resume home medications donepezil and memantine -Valproate 750mg BID #History of asthma Plan ? DuoNebs every 4 hours breathing treatment as needed DVT prophylaxis: Subcutaneous heparin GI prophylaxis: Not indicated Diet: Dysphagia 1?pur?ed Lines: Peripheral IV Code status: Full code Disposition: Pending reverse ileostomy procedure with general surgery, planned 04/05. Pending final blood cultures, on antibiotics. MAKENZIE worsening, nephrology following. Case was discussed with senior resident Dr Rick PGY-3 and attending physician, Dr Lara Guerrero MD PGY-1 Attending Provider Attestation/Addendum 78-year-old female with multiple comorbidities including hypertension, hyperlipidemia, asthma not on home oxygen and cecal mass status post right hemicolectomy and diverting ileostomy on 12/20/2023 who presented to the ER on 03/21/2024 with chief complaint of altered mentation found to have acute uremic encephalopathy and intraoral abdominal abscesses subsequently started on IV antibiotic therapy and subsequently hemodialysis. Was initiated. During course of hospitalization, patient did receive multiple hemodialysis session and plan for reversing the ileostomy. As of now, continue to monitor closely and continue Keppra for seizure-like activities. As for mentation, patient is alert and oriented to name, date of and place and kidney function improving without need for further hemodialysis. Will follow-up with general surgery regarding reversal of ileostomy. I reviewed above note and agree with findings and plans. I have also personally examined the patient with medicine team and went over assessment and plan with medical team including transportation logistics internship and resident physician.
--- NOTE | 2024-04-04 14:50 | PC.NURSE ---
Dressing care and ileostomy bag change completed. Patient tolerated procedures well and denies any pain at this time.
--- NOTE | 2024-04-04 15:21 | ESPR_ITS ---
Documentation for date of: 04/04/24 Subjective Subjective Brief History: 78F with HTN, CHF, hypothyroidism who underwent right hemicolectomy with diverting ileostomy for fecal contamination 12/19, admitted in past for MAKENZIE here now with AMS and acute renal failure, planned for emergent HD. Workup shows leukocytosis and possible abdominal fluid collection PMH: HTN, CHF, hypothyroidism, bipolar disorder PSHx: Tonsillectomy, appendectomy, cholecystectomy, hysterectomy, R hemicolectomy with diverting ileostomy 12/19 for benign necrotic mass Meds: no anticoagulation Allergies: haldol, naproxen, fluoxetine Social hx: Nonsmoker Narrative: Denies pain, had nausea earlier today but feeling better from that standpoint, remaining afebrile with normal WBC, Cr downtrending from 1.7 to 1.5 Exam Vital Signs Temp Pulse Resp BP Pulse Ox O2 Del Method O2 Flow Rate 97.9 F 99 21 H 150/82 H 99 Nasal Cannula 1 04/04/24 12:00 04/04/24 12:00 04/04/24 12:00 04/04/24 12:00 04/04/24 12:00 04/04/24 12:00 04/04/24 12:00 Constitutional Constitutional: no acute distress Routine Respiratory Exam Respiratory: Present no resp distress Routine Abdominal Exam Abdominal: Present soft and ostomy (ileostomy pink with mild surrounding erythema, no fluctuance or tenderness); Absent tenderness or distended Results Results: Laboratory Laboratory results: results reviewed Assessment & Plan Plan 78F with HTN, CHF, hypothyroidism who underwent right hemicolectomy with diverting ileostomy for fecal contamination 12/19, admitted with acute renal failure, improved from that standpoint, later developing an abdominal wall abscess which was drained 04/01. As pt is recovering well and has reached the 3- month roxana from her original surgery, I explained that ileostomy reversal can now be undertaken. I explained risks of infection, bleeding and bowel obstruction; pt expressed understanding and is agreeable to proceeding NPO after MN for reversal of ileostomy tomorrow 04/05 at 9am
[2024-04-04] MEDS: MAGNESIUM OXIDE 400 MG TABLET PO (15:51)
[2024-04-04] MEDS: DONEPEZIL HCL 5 MG TABLET 10 MG PO (20:15)
[2024-04-05] VITALS (9 sets, daily range): BP systolic 102–126; BP diastolic 54–67; PULSE 68–89; RESP 16–20; TEMP 36.1–36.5; O2SAT 95–100; BMI 24.3
--- NOTE | 2024-04-05 04:00 | PC.NURSE ---
patient had seizure like activity. She was shaking and staring blank. Dr. Sauer was nearby and he and Dr. Danial Juarez came in to assess patient. They saw the shaking but she was able to answer questions correctly to doctors and they said to not give ativan. Patient stated that she is nervous for procedure today. I reassured patient and sat with her.
[2024-04-05] MEDS: LEVOTHYROXINE SODIUM 112 MCG, LEVOTHYROXINE SODIUM 25 MCG 137 MCG PO (05:29)
[2024-04-05 06:01] LABS: Basophils # (Auto) 0.1 Thou/mm3 (0.0-0.2); Basophils % (Auto) 1 % (0-2.5); Eosinophils # (Auto) 0.1 Thou/mm3 (0.0-0.5); Eosinophils % (Auto) 2 % (0-10); Hematocrit 32.7 % (36.0-46.0); Hemoglobin 10.5 g/dL (12.0-16.0); Immature Granulocytes % (Auto) 5 % (0-0); Immature Granulocytes Auto 0.32 Thou/mm3 (0.00-0.00); Lymphocytes # (Auto) 2.5 Thou/mm3 (1.0-4.8); Lymphocytes % (Auto) 40 % (10-50); Mean Corpuscular HGB Conc 32.1 g/dl (31.0-37.0); Mean Corpuscular Hemoglobin 28.1 pg (25.0-35.0); Mean Corpuscular Volume 87 fL (80-100); Monocytes # (Auto) 0.8 Thou/mm3 (0.0-0.8); Monocytes % (Auto) 13 % (0-12); Neutrophils # (Auto) 2.5 Thou/mm3 (1.8-7.7); Neutrophils % (Auto) 40 % (37-80); Nucleated Red Blood Cell % 0 /100 WBC (0); Platelet Count 453 Thou/mm3 (140-440); Red Blood Count 3.74 Miln/mm3 (4.00-5.20); White Blood Count 6.4 Thou/mm3 (3.6-11.0)
--- NOTE | 2024-04-05 06:37 | PC.NURSE ---
notified Dr. Rubin that patient has not urinated since 9-10pm last night. She had moderate urine at that time. I bladder scanned her and she had 256ml in bladder, she said she did not feel uncomfortable or feel distended. said to notify oncoming nurse to monitor and recheck bladder scan if no urine and notify day team.
[2024-04-05 06:40] LABS: Anion Gap 13 (7-16); BUN/Creatinine Ratio 23 Ratio (12-20); Blood Urea Nitrogen 57 mg/dL (9-23); Calcium 9.1 mg/dL (8.3-10.6); Chloride 91 mMol/L (98-107); Creatinine (Component) 2.5 mg/dL (0.6-1.3); Estimated Creatinine Clearance 17.1 mL/min (>60); Glucose 91 mg/dL (74-106); Osmolality,Calculated 280 (275-295); Potassium 4.5 mMol/L (3.4-5.1); Sodium 132 mMol/L (136-145); eGFR 19 See Note
--- NOTE | 2024-04-05 07:00 | PC.NURSE ---
Patient was able to urinate with no issues. made aware.
[2024-04-05 07:39] LABS: Prothrombin Time 21.1 Seconds (9.0-12.2)
[2024-04-05] MEDS: MAGNESIUM OXIDE 400 MG TABLET PO (08:09)
[2024-04-05] MEDS: DOXYCYCLINE 100 MG TABLET PO ×2 (08:09→20:08)
[2024-04-05] MEDS: VALPROIC ACID SYRUP 250 MG/5 ML UDC 750 MG PO ×2 (08:09→20:08)
[2024-04-05] MEDS: METOPROLOL TARTRATE 25 MG TABLET PO (08:09)
[2024-04-05] MEDS: HEPARIN SOD INJ 5000 UNIT/ML VIAL SC (08:09)
--- NOTE | 2024-04-05 09:25 | CHAP ---
Gave encouragement and prayer.
--- NOTE | 2024-04-05 09:32 | ESPR_ITS ---
Documentation for date of: 04/05/24 Subjective Subjective Brief History: 78F with HTN, CHF, hypothyroidism who underwent right hemicolectomy with diverting ileostomy for fecal contamination 12/19, admitted in past for MAKENZIE here now with AMS and acute renal failure, planned for emergent HD. Workup shows leukocytosis and possible abdominal fluid collection PMH: HTN, CHF, hypothyroidism, bipolar disorder PSHx: Tonsillectomy, appendectomy, cholecystectomy, hysterectomy, R hemicolectomy with diverting ileostomy 12/19 for benign necrotic mass Meds: no anticoagulation Allergies: haldol, naproxen, fluoxetine Social hx: Nonsmoker Narrative: No complaints this am, had been planned for ileostomy reversal today but Cr 2.5 from 1.5, ileostomy output 2600cc/24h Exam Vital Signs Temp Pulse Resp BP Pulse Ox O2 Del Method O2 Flow Rate 97.4 F 81 16 110/63 95 Nasal Cannula 1 04/05/24 08:00 04/05/24 08:09 04/05/24 08:00 04/05/24 08:09 04/05/24 08:00 04/05/24 08:00 04/05/24 08:00 Constitutional Constitutional: no acute distress Routine Respiratory Exam Respiratory: Present no resp distress Results Results: Laboratory Laboratory results: results reviewed Assessment & Plan Plan 78F with HTN, CHF, hypothyroidism who underwent right hemicolectomy with diverting ileostomy for fecal contamination 12/19, admitted with acute renal failure, improved from that standpoint, later developing an abdominal wall abscess which was drained 04/01. As pt is recovering well and has reached the 3- month roxana from her original surgery, I explained that ileostomy reversal can now be undertaken. I explained risks of infection, bleeding and bowel obstruction; pt expressed understanding and is agreeable to proceeding, now awaiting improvement in renal function [place] for strict I&O NS @ 50cc/hr Imodium 2mg q6h for goal ileostomy output <1500cc/24h Surgery rescheduled for 04/07 pending improvement in Cr
[2024-04-05 11:36] LABS: Creatine Kinase 28 U/L (34-171)
[2024-04-05] MEDS: LOPERAMIDE 2 MG CAPSULE PO ×3 (12:25→23:43)
[2024-04-05] MEDS: SODIUM CHLORIDE 0.9% 1000 ML 1,000 ML 100 ML IV (12:26)
--- NOTE | 2024-04-05 14:03 | ESPR_ITS ---
<Statement entered by Lonnie Rick DO - 04/05/24 19:17> Senior attestation: Patient was examined and case was reviewed with team including attending physician. Note reviewed, I agree with most of its contents and agree with the patient's care. Surgery anticipated on 04/07, general surgeon Dr. Flynn following. Creatinine noted to worsen, will give IV fluids. Lonnie Rick DO PGY-3 Documentation for date of: 04/05/24 Subjective Subjective Interval history: Patient seen at bedside. Overnight was said to have had seizure-like activities, patient had no postictal state and no loss of consciousness. Patient is on Depakote 750 mg twice daily. Neurology on board. She was scheduled to have ileostomy reversal today by Dr. Flynn, however on labs today is worsening of renal function with creatinine of 2.5 procedure was rescheduled while renal function has been improving IV fluids and Imodium for ileostomy output was ordered. Will repeat renal panel, give IV fluids and encourage oral intake. Anticipate surgery being done on 04/07/2024. Exam Vital Signs Temp Pulse Resp BP Pulse Ox O2 Del Method O2 Flow Rate 96.9 F 77 20 107/60 100 Nasal Cannula 1 04/05/24 12:00 04/05/24 12:00 04/05/24 12:00 04/05/24 12:00 04/05/24 12:00 04/05/24 12:00 04/05/24 12:00 Narrative Exam GENERAL: AAOX3 NEURO: YARN CONDITIONER grossly intact, moves extremities x4 HEENT: Dry mucosa. Eyes open, symmetrical, & clear CARDIO: No chest pain on palpation. Heart RRR, no obvious murmurs PULM: No noted coughing/dyspnea. Lungs CTA B/L GI: Abdomen soft, nondistended, mildly tender to palpation at umbilical region. Colostomy bag with content, minimal leak, cellulitis seen in surrounding area. BSx4 URO/INTEGRATION AIDE:: No further abnormalities noted. SKIN/MSK/EXT: No wounds/rashes/edema/amputations, no pain on palpation. Pedal pulses present B/L Objective Labs 04/09/24 05:55 04/09/24 05:55 Labs: Laboratory Results - last 24 hr 04/05/24 04/05/24 04/05/24 05:40 06:50 10:50 WBC 6.4 RBC 3.74 L Hgb 10.5 L Hct 32.7 L MCV 87 MCH 28.1 MCHC 32.1 RDW Std Deviation 52.0 H Plt Count 453 H D Neut % (Auto) 40 Lymph % (Auto) 40 [place] % (Auto) 13 H Eos % (Auto) 2 Baso % (Auto) 1 Neut # (Auto) 2.5 Lymph # (Auto) 2.5 [place] # (Auto) 0.8 Eos # (Auto) 0.1 Baso # (Auto) 0.1 Immature Gran # (Auto) 0.32 H Absolute Nucleated RBC 0.00 Immature Gran % 5 H Nucleated RBC % 0 PT 21.1 H D INR 2.0 H Sodium 132 L Potassium 4.5 Chloride 91 L Carbon Dioxide 28.0 Anion Gap 13 BUN 57 H Creatinine 2.5 H D Estim Creat Clear Calc 17.1 L eGFR 19 L BUN/Creatinine Ratio 23 H Glucose 91 Calculated Osmolality 280 Calcium 9.1 Total Creatine Kinase Cancelled 28 L ABG Interpretation ABG results: 03/21/24 05:40 ABG pH 7.35 ABG pCO2 41 ABG pO2 121 H ABG HCO3 23 ABG O2 Saturation 99 H ABG Base Excess -3 Quality Measures Quality Measures VTE prophylaxis and sepsis Current suspected stage: sepsis Possible source: skin/soft tissue Blood cultures ordered: yes Antibiotic ordered: Yes Advance care planning discussed with:: child Assessment & Plan Assessment Current Active Medications: Generic Name Dose Route Start Last Admin Trade Name Freq PRN Reason Stop Dose Admin Acetaminophen 650 mg 03/21/24 05:19 Acetaminophen 325 Mg Tablet PO 04/20/24 05:18 Q6H PRN Fever >101.5 Albuterol/Ipratropium 3 ml 03/21/24 15:51 Albuterol/Ipratropium (Duoneb) Rt Tia 3 Ml Nebu INH 04/20/24 18:59 Q4HRRT PRN Shortness of breath Dextrose 25 ml 03/31/24 09:56 Dextrose 50%-Water Inj 50 Ml Syringe IV 04/30/24 09:55 Q15MIN PRN BG 50-70 responsive npo pt Dextrose 50 ml 03/31/24 09:56 Dextrose 50%-Water Inj 50 Ml Syringe IV 04/30/24 09:55 Q15MIN PRN BG <50 OR BG <70 & pt unresponsive Donepezil HCl 10 mg 03/21/24 21:00 04/04/24 20:15 Donepezil Hcl 5 Mg Tablet PO 04/20/24 20:59 10 mg HS ASHISH Administration Doxycycline Hyclate 100 mg 04/01/24 09:30 04/05/24 08:09 Doxycycline 100 Mg Tablet PO 04/08/24 09:29 100 mg BID ASHISH Administration Glucagon 1 mg 03/31/24 09:56 Glucagon Inj 1 Mg Vial IM Q15MIN PRN BG <70, and no IV access Heparin Sodium (Porcine) 5,000 unit 03/22/24 17:30 04/05/24 08:09 Heparin Sod Inj 5000 Unit/Ml Vial SC 04/05/24 17:29 5,000 unit Q12HR ASHISH Administration Hydralazine HCl 10 mg 03/21/24 15:45 Hydralazine Hcl 10 Mg Tablet PO 04/20/24 17:59 Q6HR PRN SBP>160 Albumin Human 25 gm in 100 mls @ 100 mls/min 03/21/24 10:54 Albuminar-25 Ivpb IV PRN PRN DIALYSIS Sodium Chloride 1,000 mls @ 100 mls/hr 04/05/24 09:47 04/05/24 12:26 Ns IV 04/05/24 19:45 100 mls/hr .Q10H ASHISH Administration Levothyroxine Sodium 112 mcg/ 137 mcg 03/21/24 07:30 04/05/24 05:29 Levothyroxine Sodium 25 mcg PO 04/20/24 07:29 137 mcg ACBR ASHISH Administration Loperamide HCl 2 mg 04/05/24 12:00 04/05/24 12:25 Loperamide 2 Mg Capsule PO 04/12/24 11:59 2 mg Q6HR ASHISH Administration Lorazepam 2 mg 04/05/24 04:09 Lorazepam 2 Mg/Ml Vial IVP Q15M PRN seizure Magnesium Oxide 400 mg 04/04/24 15:30 04/05/24 08:09 Magnesium Oxide 400 Mg Tablet PO 05/04/24 15:29 400 mg QDAY ASHISH Administration Metoprolol Tartrate 25 mg 03/21/24 21:00 04/05/24 08:09 Metoprolol Tartrate 25 Mg Tablet PO 04/20/24 20:59 25 mg BID ASHISH Administration Ondansetron HCl 4 mg 03/21/24 06:08 04/04/24 12:59 Ondansetron Inj 2 Mg/Ml Inj 2 Ml IV 04/20/24 06:07 4 mg Q6H PRN Administration NAUSEA OR VOMITING Protocol Sodium Chloride 3 ml 03/21/24 08:25 Sodium Chloride Rt Tia 0.9% 3 Ml Nebu INH 04/20/24 08:24 PRN PRN SOLN Valproic Acid 750 mg 04/03/24 09:00 04/05/24 08:09 Valproic Acid Syrup 250 Mg/5 Ml Udc PO 05/03/24 08:59 750 mg BID ASHISH Administration Plan Summary: The patient is a 78-year-old female with a past medical history of hypothyroidism, hypertension, JACKIE, asthma, depression, dementia, recurrent UTI, and is status post hemicolectomy with ileostomy admitted for acute uremic encephalopathy, stage III acute kidney injury, sepsis secondary to UTI versus intra-abdominal abscess. 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 Flynn. Due to possible colostomy leakage/malfunction, the patient has been admitted about 3 times since the procedure was done. There is a plan for an ileostomy reversal to be done possibly on 04/05/2024. 04/05/2024- She was scheduled to have ileostomy reversal today by Dr. Flynn, however on labs today is worsening of renal function with creatinine of 2.5 procedure was rescheduled while renal function has been improving IV fluids and Imodium for ileostomy output was ordered. Will repeat renal panel, give IV fluids and encourage oral intake. Anticipate surgery being done on 04/07/2024. Plan: -IVF and Imodium, monitor renal function -General Surgery consulted, pressure recommendations -If procedure to be done tomorrow, n.p.o. at midnight and hold heparin. 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 Had left-sided weakness which has resolved. Teleneuro was consulted, stroke alert was called. CT head and CTA negative for any acute findings. Patient was evaluated by Neurologist Dr Brush yesterday, who suspects that patient might have complex partial seizures and recommended doubling valproate dose in place of Keppra due to better side effect profile. Plan -Continue Valproate 750mg twice daily -Seizure precautions -Holding memantine -Neurologist Dr. Brush consulted and following #Sepsis, secondary to #E.Coli UTI-treated #Intra-abdominal fluid collection, possible abscess or infection #History of recurrent UTI CT A/P 03/31: Fluid collection 5.4 x 4.0 x 2.2 cm in subcutaneous fatty tissue anterior pelvic wall, differentials include abcess and hematoma Patient reports dysuria and cloudy urine, noted to have recurrent UTIs. Most recent urine cultures positive for E. coli, pansensitive. WBC on admission-20.9 Additionally, patient is on IV Zosyn for sepsis management. General surgeon Dr. Flynn consulted, recommends to continue wound care Patient was evaluated by the general surgeon Dr. Flynn who is considering takedown of the ileostomy following a CT scan with contrast which will be done when renal function is much better. Patient had incision and drainage done 04/[address] Flynn, expressed approximately 20 cc of p.o., wound was irrigated with saline and packed, patient tolerated procedure well. Repeat blood cultures preliminary are negative. WBC downtrending, 13.3 today. Will de-escalate antibiotics and stop IV Zosyn, continue on doxycycline Surgery recommendations appreciated, anticipate surgery in 3 days. Plan: -Continue doxycycline 100mg BID ?General Surgeon Dr. Flynn consulted, following recommendations -Continue wound care -Continue to monitor CBC -Pending final blood culture, negative on 48 hour reads #Acute encephalopathy uremic vs infections-resolved #Acute kidney injury-resolved #Increased ileostomy output -CT Loperamide 10mg TID has been stopped -Encourage increased oral intake -Continue to monitor CMP -Avoid nephrotoxins -Renally dose medications -General surgeon Dr. Flynn and system developer associate manager Dr. Rahman following #Electrolyte imbalances #Hyponatremia-resolved #Hyperkalemia-resolved #Hypochloremia-resolved #Hypocalcemia-resolved #Hyperphosphatemia-resolved #Hypomagnesemia-resolved -Hyperkalemic protocol initiated with 5 units of insulin, D50 and sevelamer as well as albuterol on admission. -Urgent dialysis indicated on admission, patient had temporary catheter placement. -Holding dialysis for now as renal function is improving Plan: ? Chief Operator Synthesis Dr. Lacey following ? Continue to monitor CMP #History of hypothyroidism Plan ? Resume home medication levothyroxine 125 mcg before breakfast #History of hypertension Plan ? Resume home med- Metoprolol tartrate 25mg BID -Hydralazine 10mg Q6HR PRN for SBP >160 #History of depression #History of dementia #History of bipolar disorder #History of anxiety Plan ? Resume home medications donepezil and memantine -Valproate 750mg BID #History of asthma Plan ? DuoNebs every 4 hours breathing treatment as needed DVT prophylaxis: Subcutaneous heparin GI prophylaxis: Not indicated Diet: Dysphagia 1?pur?ed Lines: Peripheral IV Code status: Full code Disposition: Pending reverse ileostomy procedure with general surgery, planned 04/07. MAKENZIE worsening, nephrology following. Case was discussed with senior resident Dr Rick PGY-3 and attending physician, Dr Lara Guerrero MD PGY-1 Attending Provider Attestation/Addendum 78-year-old female with multiple comorbidities including hypertension, hyperlipidemia, asthma not on home oxygen and cecal mass status post right hemicolectomy and diverting ileostomy on 12/20/2023 who presented to the ER on 03/21/2024 with chief complaint of altered mentation found to have acute uremic encephalopathy and intraoral abdominal abscesses subsequently started on IV antibiotic therapy and subsequently hemodialysis. Was initiated. During course of hospitalization, patient did receive multiple hemodialysis session and plan for reversing the ileostomy. As of now, continue to monitor closely. As for mentation, patient is alert and oriented to name, date of and place and kidney function improving without need for further hemodialysis. Will follow-up with general surgery regarding reversal of ileostomy. Overnight, patient did have seizure-like activity with no postictal state and patient is currently on Depakote 750 mg twice daily. I reviewed above note and agree with findings and plans. I have also personally examined the patient with medicine team and went over assessment and plan with medical team including hospitality internship and resident physician.
[2024-04-05 14:52] LABS: Anion Gap 16 (7-16); BUN/Creatinine Ratio 24 Ratio (12-20); Blood Urea Nitrogen 64 mg/dL (9-23); Carbon Dioxide 27.4 mMol/L (20.0-31.0); Chloride 89 mMol/L (98-107); Creatinine (Component) 2.7 mg/dL (0.6-1.3); Estimated Creatinine Clearance 15.8 mL/min (>60); Glucose 144 mg/dL (74-106); Osmolality,Calculated 285 (275-295); Sodium 132 mMol/L (136-145); eGFR 17 See Note
[2024-04-05] MEDS: DONEPEZIL HCL 5 MG TABLET 10 MG PO (20:08)
[2024-04-06] VITALS (9 sets, daily range): BP systolic 107–154; BP diastolic 47–83; PULSE 65–119; RESP 13–21; TEMP 35.9–36.3; O2SAT 94–100
[2024-04-06 05:43] LABS: Basophils # (Auto) 0.1 Thou/mm3 (0.0-0.2); Basophils % (Auto) 1 % (0-2.5); Eosinophils # (Auto) 0.1 Thou/mm3 (0.0-0.5); Eosinophils % (Auto) 2 % (0-10); Hemoglobin 11.4 g/dL (12.0-16.0); Immature Granulocytes % (Auto) 5 % (0-0); Immature Granulocytes Auto 0.39 Thou/mm3 (0.00-0.00); Lymphocytes % (Auto) 50 % (10-50); Mean Corpuscular HGB Conc 31.7 g/dl (31.0-37.0); Mean Corpuscular Volume 89 fL (80-100); Monocytes # (Auto) 0.8 Thou/mm3 (0.0-0.8); Monocytes % (Auto) 10 % (0-12); Neutrophils # (Auto) 2.6 Thou/mm3 (1.8-7.7); Neutrophils % (Auto) 33 % (37-80); Nucleated Red Blood Cell % 0 /100 WBC (0); Platelet Count 492 Thou/mm3 (140-440); Red Blood Count 4.07 Miln/mm3 (4.00-5.20); White Blood Count 7.9 Thou/mm3 (3.6-11.0)
[2024-04-06] MEDS: LEVOTHYROXINE SODIUM 112 MCG, LEVOTHYROXINE SODIUM 25 MCG 137 MCG PO (05:51)
[2024-04-06] MEDS: LOPERAMIDE 2 MG CAPSULE PO (05:51)
[2024-04-06 06:41] LABS: Anion Gap 15 (7-16); BUN/Creatinine Ratio 25 Ratio (12-20); Blood Urea Nitrogen 68 mg/dL (9-23); Calcium 9.2 mg/dL (8.3-10.6); Carbon Dioxide 26.6 mMol/L (20.0-31.0); Chloride 90 mMol/L (98-107); Creatinine (Component) 2.7 mg/dL (0.6-1.3); Glucose 136 mg/dL (74-106); Magnesium 1.6 mg/dL (1.6-2.6); Osmolality,Calculated 286 (275-295); Phosphorous 5.1 mg/dL (2.4-5.1); Potassium 4.4 mMol/L (3.4-5.1); Sodium 132 mMol/L (136-145); eGFR 17 See Note
[2024-04-06] MEDS: VALPROIC ACID SYRUP 250 MG/5 ML UDC 750 MG PO ×2 (09:07→21:17)
[2024-04-06] MEDS: SODIUM CHLORIDE 0.9% 500 ML 500 ML 999 ML IV (09:07)
[2024-04-06] MEDS: DOXYCYCLINE 100 MG TABLET PO ×2 (09:07→21:18)
[2024-04-06] MEDS: LOPERAMIDE 2 MG CAPSULE 8 MG PO (09:07)
[2024-04-06] MEDS: MAGNESIUM OXIDE 400 MG TABLET PO (09:07)
--- NOTE | 2024-04-06 11:07 | ESPR_ITS ---
<Statement entered by Lonnie Rick DO - 04/06/24 13:26> Senior attestation: Patient was examined and case was reviewed with team including attending physician. Note reviewed, I agree with most of its contents and agree with the patient's care. Will attempt to give IV fluid bolus and repeat renal function panel labs in afternoon. Difficulty with peripheral IV lines, will continue to seek line placement for fluids. Patient noted to be nauseaus, will give IV zofran possibly PO meds if IV line is not able to be placed. Lonnie Rick DO PGY-3 Documentation for date of: 04/06/24 Subjective Subjective Interval history: Patient seen at bedside. No acute overnight events. Patient has no complaint this morning, no seizure activity overnight. Labs and vitals reviewed, creatinine worse today-2.7 with sodium of 132. Will increase patient's fluid intake with a 500 mL bolus and maintenance fluid and increase Imodium to 10 mg 3 times daily. Repeat renal function in 2 hours. Anticipate surgery tomorrow if renal function improves. Exam Vital Signs Temp Pulse Resp BP Pulse Ox O2 Del Method O2 Flow Rate 97.1 F 106 H 13 117/47 L 97 Nasal Cannula 2 04/06/24 08:00 04/06/24 09:15 04/06/24 09:15 04/06/24 08:00 04/06/24 09:15 04/06/24 08:00 04/06/24 09:15 Narrative Exam GENERAL: AAOX3 NEURO: PRODUCT LISTER grossly intact, moves extremities x4 HEENT: Dry mucosa. Eyes open, symmetrical, & clear CARDIO: No chest pain on palpation. Heart RRR, no obvious murmurs PULM: No noted coughing/dyspnea. Lungs CTA B/L GI: Abdomen soft, nondistended, mildly tender to palpation at umbilical region. Colostomy bag with content, minimal leak, cellulitis seen in surrounding area. BSx4 URO/SOFTWARE QUALITY ENGINEER:: No further abnormalities noted. SKIN/MSK/EXT: No wounds/rashes/edema/amputations, no pain on palpation. Pedal pulses present B/L Objective Labs 04/09/24 05:55 04/09/24 05:55 Labs: Laboratory Results - last 24 hr 04/05/24 04/05/24 04/06/24 10:50 13:55 04:45 WBC 7.9 RBC 4.07 Hgb 11.4 L Hct 36.0 MCV 89 MCH 28.0 MCHC 31.7 RDW Std Deviation 54.0 H Plt Count 492 H D Neut % (Auto) 33 L Lymph % (Auto) 50 [place] % (Auto) 10 Eos % (Auto) 2 Baso % (Auto) 1 Neut # (Auto) 2.6 Lymph # (Auto) 4.0 [place] # (Auto) 0.8 Eos # (Auto) 0.1 Baso # (Auto) 0.1 Immature Gran # (Auto) 0.39 H Absolute Nucleated RBC 0.00 Immature Gran % 5 H Nucleated RBC % 0 Sodium 132 L 132 L Potassium 4.0 D 4.4 Chloride 89 L 90 L Carbon Dioxide 27.4 26.6 Anion Gap 16 15 BUN 64 H 68 H Creatinine 2.7 H 2.7 H Estim Creat Clear Calc 15.8 L 16.0 L eGFR 17 L 17 L BUN/Creatinine Ratio 24 H 25 H Glucose 144 H D 136 H Calculated Osmolality 285 286 Calcium 9.0 9.2 Phosphorus 5.1 Magnesium 1.6 Total Creatine Kinase 28 L ABG Interpretation ABG results: 03/21/24 05:40 ABG pH 7.35 ABG pCO2 41 ABG pO2 121 H ABG HCO3 23 ABG O2 Saturation 99 H ABG Base Excess -3 Quality Measures Quality Measures VTE prophylaxis and sepsis Current suspected stage: sepsis Possible source: skin/soft tissue Blood cultures ordered: yes Antibiotic ordered: Yes Advance care planning discussed with:: patient and child Assessment & Plan Assessment Current Active Medications: Generic Name Dose Route Start Last Admin Trade Name Freq PRN Reason Stop Dose Admin Acetaminophen 650 mg 03/21/24 05:19 Acetaminophen 325 Mg Tablet PO 04/20/24 05:18 Q6H PRN Fever >101.5 Albuterol/Ipratropium 3 ml 03/21/24 15:51 Albuterol/Ipratropium (Duoneb) Rt Tia 3 Ml Nebu INH 04/20/24 18:59 Q4HRRT PRN Shortness of breath Dextrose 25 ml 03/31/24 09:56 Dextrose 50%-Water Inj 50 Ml Syringe IV 04/30/24 09:55 Q15MIN PRN BG 50-70 responsive npo pt Dextrose 50 ml 03/31/24 09:56 Dextrose 50%-Water Inj 50 Ml Syringe IV 04/30/24 09:55 Q15MIN PRN BG <50 OR BG <70 & pt unresponsive Donepezil HCl 10 mg 03/21/24 21:00 04/05/24 20:08 Donepezil Hcl 5 Mg Tablet PO 04/20/24 20:59 10 mg HS ASHISH Administration Doxycycline Hyclate 100 mg 04/01/24 09:30 04/06/24 09:07 Doxycycline 100 Mg Tablet PO 04/08/24 09:29 100 mg BID ASHISH Administration Glucagon 1 mg 03/31/24 09:56 Glucagon Inj 1 Mg Vial IM Q15MIN PRN BG <70, and no IV access Hydralazine HCl 10 mg 03/21/24 15:45 Hydralazine Hcl 10 Mg Tablet PO 04/20/24 17:59 Q6HR PRN SBP>160 Albumin Human 25 gm in 100 mls @ 100 mls/min 03/21/24 10:54 Albuminar-25 Ivpb IV PRN PRN DIALYSIS Sodium Chloride 1,000 mls @ 125 mls/hr 04/06/24 10:16 Ns IV 04/06/24 15:58 .Q8H ONE Levothyroxine Sodium 112 mcg/ 137 mcg 03/21/24 07:30 04/06/24 05:51 Levothyroxine Sodium 25 mcg PO 04/20/24 07:29 137 mcg ACBR ASHISH Administration Loperamide HCl 10 mg 04/06/24 14:00 Loperamide 2 Mg Capsule PO 04/13/24 13:59 TID ASHISH Lorazepam 2 mg 04/05/24 04:09 Lorazepam 2 Mg/Ml Vial IVP Q15M PRN seizure Magnesium Oxide 400 mg 04/04/24 15:30 04/06/24 09:07 Magnesium Oxide 400 Mg Tablet PO 05/04/24 15:29 400 mg QDAY ASHISH Administration Metoprolol Tartrate 25 mg 03/21/24 21:00 04/05/24 08:09 Metoprolol Tartrate 25 Mg Tablet PO 04/20/24 20:59 25 mg BID ASHISH Administration Ondansetron HCl 4 mg 03/21/24 06:08 04/04/24 12:59 Ondansetron Inj 2 Mg/Ml Inj 2 Ml IV 04/20/24 06:07 4 mg Q6H PRN Administration NAUSEA OR VOMITING Protocol Sodium Chloride 3 ml 03/21/24 08:25 Sodium Chloride Rt Tia 0.9% 3 Ml Nebu INH 04/20/24 08:24 PRN PRN SOLN Valproic Acid 750 mg 04/03/24 09:00 04/06/24 09:07 Valproic Acid Syrup 250 Mg/5 Ml Udc PO 05/03/24 08:59 750 mg BID ASHISH Administration Plan Summary: The patient is a 78-year-old female with a past medical history of hypothyroidism, hypertension, JACKIE, asthma, depression, dementia, recurrent UTI, and is status post hemicolectomy with ileostomy admitted for acute uremic encephalopathy, stage III acute kidney injury, sepsis secondary to UTI versus intra-abdominal abscess. 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 Flynn. Due to possible colostomy leakage/malfunction, the patient has been admitted about 3 times since the procedure was done. There is a plan for an ileostomy reversal to be done possibly on 04/05/2024. 04/06/2024- Labs and vitals reviewed, creatinine worse today-2.7 with sodium of 132. Will increase patient's fluid intake with a 500 mL bolus and maintenance fluid and increase Imodium to 10 mg 3 times daily. Repeat renal function in 2 hours. Anticipate surgery tomorrow if renal function improves. Plan: -IVF and increase Imodium, monitor renal function -General Surgery consulted, pressure recommendations -If procedure to be done tomorrow, n.p.o. at midnight and hold heparin. 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 Had left-sided weakness which has resolved. Teleneuro was consulted, stroke alert was called. CT head and CTA negative for any acute findings. Patient was evaluated by Neurologist Dr Brush yesterday, who suspects that patient might have complex partial seizures and recommended doubling valproate dose in place of Keppra due to better side effect profile. Plan -Continue Valproate 750mg twice daily -Seizure precautions -Holding memantine -Neurologist Dr. Brush consulted and following #Sepsis, secondary to #E.Coli UTI-treated #Intra-abdominal fluid collection, possible abscess or infection #History of recurrent UTI CT A/P 03/31: Fluid collection 5.4 x 4.0 x 2.2 cm in subcutaneous fatty tissue anterior pelvic wall, differentials include abcess and hematoma Patient reports dysuria and cloudy urine, noted to have recurrent UTIs. Most recent urine cultures positive for E. coli, pansensitive. WBC on admission-20.9 Additionally, patient is on IV Zosyn for sepsis management. General surgeon Dr. Flynn consulted, recommends to continue wound care Patient was evaluated by the general surgeon Dr. Flynn who is considering takedown of the ileostomy following a CT scan with contrast which will be done when renal function is much better. Patient had incision and drainage done 04/[address] Flynn, expressed approximately 20 cc of p.o., wound was irrigated with saline and packed, patient tolerated procedure well. Repeat blood cultures preliminary are negative. WBC downtrending, 13.3 today. Will de-escalate antibiotics and stop IV Zosyn, continue on doxycycline Surgery recommendations appreciated, anticipate surgery in 3 days. Plan: -Continue doxycycline 100mg BID ?General Surgeon Dr. Flynn consulted, following recommendations -Continue wound care -Continue to monitor CBC -Pending final blood culture, negative on 48 hour reads #Acute encephalopathy uremic vs infections-resolved #Acute kidney injury-resolved #Increased ileostomy output -CT Loperamide 10mg TID has been stopped -Encourage increased oral intake -Continue to monitor CMP -Avoid nephrotoxins -Renally dose medications -General surgeon Dr. Flynn and chief digital media officer Dr. Rahman following #Electrolyte imbalances #Hyponatremia-resolved #Hyperkalemia-resolved #Hypochloremia-resolved #Hypocalcemia-resolved #Hyperphosphatemia-resolved #Hypomagnesemia-resolved -Hyperkalemic protocol initiated with 5 units of insulin, D50 and sevelamer as well as albuterol on admission. -Urgent dialysis indicated on admission, patient had temporary catheter placement. -Holding dialysis for now as renal function is improving Plan: ? Soft Tile Setter Dr. Rahman following ? Continue to monitor CMP #History of hypothyroidism Plan ? Resume home medication levothyroxine 125 mcg before breakfast #History of hypertension Plan ? Resume home med- Metoprolol tartrate 25mg BID -Hydralazine 10mg Q6HR PRN for SBP >160 #History of depression #History of dementia #History of bipolar disorder #History of anxiety Plan ? Resume home medications donepezil and memantine -Valproate 750mg BID #History of asthma Plan ? DuoNebs every 4 hours breathing treatment as needed DVT prophylaxis: Subcutaneous heparin GI prophylaxis: Not indicated Diet: Dysphagia 1?pur?ed Lines: Peripheral IV Code status: Full code Disposition: Pending reverse ileostomy procedure with general surgery, planned 04/07. MAKENZIE worsening, nephrology following. Case was discussed with senior resident Dr Rick PGY-3 and attending physician, Dr Lara Guerrero MD PGY-1 Attending Provider Attestation/Addendum 78-year-old female with multiple comorbidities including hypertension, hyperlipidemia, asthma not on home oxygen and cecal mass status post right hemicolectomy and diverting ileostomy on 12/20/2023 who presented to the ER on 03/21/2024 with chief complaint of altered mentation found to have acute uremic encephalopathy and intraoral abdominal abscesses subsequently started on IV antibiotic therapy and subsequently hemodialysis. Was initiated. During course of hospitalization, patient did receive multiple hemodialysis session and plan for reversing the ileostomy. As of now, continue to monitor closely. As for mentation, patient is alert and oriented to name, date of and place and kidney function improving without need for further hemodialysis. Will follow-up with general surgery regarding reversal of ileostomy. Overnight, no further seizure-like activity and patient creatinine continues to uptrend and currently at 2.7. Plan to give fluids and monitor closely. I reviewed above note and agree with findings and plans. I have also personally examined the patient with medicine team and went over assessment and plan with medical team including international marketing specialist and resident physician.
--- NOTE | 2024-04-06 12:20 | PC.NURSE ---
Patient vomiting lunch, Dr. Rick notified, during episode HR went up to 158, Dr. Rick notified.
[2024-04-06 12:43] LABS: Anion Gap 12 (7-16); BUN/Creatinine Ratio 27 Ratio (12-20); Blood Urea Nitrogen 65 mg/dL (9-23); Carbon Dioxide 29.2 mMol/L (20.0-31.0); Chloride 86 mMol/L (98-107); Creatinine (Component) 2.4 mg/dL (0.6-1.3); Glucose 102 mg/dL (74-106); Potassium 4.3 mMol/L (3.4-5.1); Sodium 127 mMol/L (136-145); eGFR 20 See Note
[2024-04-06 12:44] LABS: Calcium 8.6 mg/dL (8.3-10.6); Osmolality,Calculated 273 (275-295)
[2024-04-06] MEDS: LOPERAMIDE 2 MG CAPSULE 10 MG PO ×2 (13:52→21:17)
[2024-04-06] MEDS: SODIUM CHLORIDE 0.9% 1000 ML 1,000 ML 125 ML IV (13:55)
--- NOTE | 2024-04-06 16:52 | PD.SURPROG ---
Documentation for date of: 04/06/24 Subjective Subjective Brief History: 78F with HTN, CHF, hypothyroidism who underwent right hemicolectomy with diverting ileostomy for fecal contamination 12/19, admitted in past for MAKENZIE here now with AMS and acute renal failure, planned for emergent HD. Workup shows leukocytosis and possible abdominal fluid collection PMH: HTN, CHF, hypothyroidism, bipolar disorder PSHx: Tonsillectomy, appendectomy, cholecystectomy, hysterectomy, R hemicolectomy with diverting ileostomy 12/19 for benign necrotic mass Meds: no anticoagulation Allergies: haldol, naproxen, fluoxetine Social hx: Nonsmoker Narrative: Denies pain, having nausea erlier but it has since improved, Cr 2.7 this am and on repeat 2.4, UOP 400cc yesterday, so far ileostomy output 900cc today, imodium increased Exam Vital Signs Temp Pulse Resp BP Pulse Ox O2 Del Method O2 Flow Rate 97.3 F 78 18 154/57 H 95 Nasal Cannula 1 04/06/24 16:00 04/06/24 16:00 04/06/24 16:00 04/06/24 16:00 04/06/24 16:00 04/06/24 16:00 04/06/24 16:00 Constitutional Constitutional: no acute distress Routine Respiratory Exam Respiratory: Present no resp distress Routine Abdominal Exam Abdominal: Present soft, wound (midline wound with no purulent drainage, wound vac replaced today) and ostomy (ileostomy pink with green liquid stool in appliance, mild surrounding erythema, no fluctuance); Absent tenderness or distended Results Results: Laboratory Laboratory results: results reviewed Assessment & Plan Plan 78F with HTN, CHF, hypothyroidism who underwent right hemicolectomy with diverting ileostomy for fecal contamination 12/19, admitted with acute renal failure, improved from that standpoint, later developing an abdominal wall abscess which was drained 04/01. As pt is recovering well and has reached the 3-month roxana from her original surgery, I explained that ileostomy reversal can now be undertaken. I explained risks of infection, bleeding and bowel obstruction; pt expressed understanding and is agreeable to proceeding, now awaiting improvement in renal function Strict I&O Plan for surgery when Cr improved, possibly this weekend
[2024-04-06] MEDS: DONEPEZIL HCL 5 MG TABLET 10 MG PO (21:18)
[2024-04-06] MEDS: ONDANSETRON INJ 2 MG/ML INJ 2 ML 4 MG IV (22:13)
--- NOTE | 2024-04-06 22:52 | PC.NURSE ---
Pt stated that she was feeling nauseous. PRN Zofran given to PT. No episodes of vomitting.
[2024-04-07] VITALS (11 sets, daily range): BP systolic 122–145; BP diastolic 47–67; PULSE 66–133; RESP 12–97; TEMP 36.1–36.7; O2SAT 92–100
[2024-04-07] MEDS: LOPERAMIDE 2 MG CAPSULE 10 MG PO ×3 (06:38→21:29)
[2024-04-07] MEDS: LEVOTHYROXINE SODIUM 112 MCG, LEVOTHYROXINE SODIUM 25 MCG 137 MCG PO (06:38)
--- NOTE | 2024-04-07 07:47 | PC.NURSE ---
Patient HR went up to 150s but did not sustain, patient stated felt shaky in hands, HR back down to 125, Dr. Mccarthy notified.
--- NOTE | 2024-04-07 07:58 | EKG_ITS ---
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
[2024-04-07] MEDS: MAGNESIUM OXIDE 400 MG TABLET PO (08:07)
[2024-04-07] MEDS: VALPROIC ACID SYRUP 250 MG/5 ML UDC 750 MG PO ×2 (08:07→20:03)
[2024-04-07] MEDS: DOXYCYCLINE 100 MG TABLET PO ×2 (08:08→20:03)
[2024-04-07 08:16] LABS: Basophils # (Auto) 0.1 Thou/mm3 (0.0-0.2); Basophils % (Auto) 1 % (0-2.5); Eosinophils # (Auto) 0.1 Thou/mm3 (0.0-0.5); Eosinophils % (Auto) 1 % (0-10); Hematocrit 30.8 % (36.0-46.0); Hemoglobin 9.9 g/dL (12.0-16.0); Immature Granulocytes % (Auto) 5 % (0-0); Immature Granulocytes Auto 0.41 Thou/mm3 (0.00-0.00); Lymphocytes # (Auto) 3.4 Thou/mm3 (1.0-4.8); Lymphocytes % (Auto) 39 % (10-50); Mean Corpuscular HGB Conc 32.1 g/dl (31.0-37.0); Mean Corpuscular Hemoglobin 28.4 pg (25.0-35.0); Mean Corpuscular Volume 88 fL (80-100); Monocytes # (Auto) 0.9 Thou/mm3 (0.0-0.8); Monocytes % (Auto) 11 % (0-12); Neutrophils # (Auto) 3.8 Thou/mm3 (1.8-7.7); Neutrophils % (Auto) 44 % (37-80); Nucleated Red Blood Cell % 0 /100 WBC (0); Platelet Count 547 Thou/mm3 (140-440); RDW Standard Deviation 52.4 fL (36.4-46.3); Red Blood Count 3.49 Miln/mm3 (4.00-5.20); White Blood Count 8.7 Thou/mm3 (3.6-11.0)
[2024-04-07] MEDS: METOPROLOL TARTRATE 25 MG TABLET PO ×2 (09:02→20:04)
[2024-04-07 09:05] LABS: Alanine Aminotransferase 15 U/L (10-49); Albumin, Serum 3.1 gm/dL (3.4-4.8); Albumin/Globulin Ratio 0.9 (1.2-2.2); Alkaline Phosphatase 723 U/L (46-116); Anion Gap 10 (7-16); Aspartate Amino Transferase 31 U/L (0-34); BUN/Creatinine Ratio 36 Ratio (12-20); Bilirubin,Total 0.4 mg/dL (0.3-1.2); Blood Urea Nitrogen 65 mg/dL (9-23); Calcium 9.2 mg/dL (8.3-10.6); Calcium (Corrected) 9.9 mg/dL (8.5-10.1); Carbon Dioxide 29.5 mMol/L (20.0-31.0); Chloride 92 mMol/L (98-107); Creatinine (Component) 1.8 mg/dL (0.6-1.3); Estimated Creatinine Clearance 24.5 mL/min (>60); Globulin 3.4 gm/dL (2.3-3.5); Glucose 100 mg/dL (74-106); Magnesium 1.3 mg/dL (1.6-2.6); Osmolality,Calculated 281 (275-295); Phosphorous 4.2 mg/dL (2.4-5.1); Potassium 4.1 mMol/L (3.4-5.1); Sodium 131 mMol/L (136-145); Total Protein 6.5 gm/dL (5.7-8.2); eGFR 28 See Note
--- NOTE | 2024-04-07 10:13 | PC.SS ---
Addendum entered by JOLANTA Parra 04/07/24 14:22: Rounding note: surgery scheduled for 04/09/24. Original Note: SS update: patient will be staying. Pending surgery date with Dr. Flynn.
--- NOTE | 2024-04-07 11:42 | PC.NURSE ---
Assisted Dr Flynn with wound vac change and colostomy bag change, pt. tolerated well.
--- NOTE | 2024-04-07 11:44 | ESPR_ITS ---
<Statement entered by Lonnie Rick DO - 04/07/24 14:22> Senior attestation: Patient was examined and case was reviewed with team including attending physician. Note reviewed, I agree with most of its contents and agree with the patient's care. General surgeon Dr. Flynn following, surgery anticipated once creatinine improves, possibly by 04/08, will place NPO after midnight for possible surgery 04/08. Lonnie Rick DO PGY-3 Documentation for date of: 04/07/24 Subjective Subjective Interval history: No acute overnight events. Patient seen and observed at bedside. Labs reviewed. Colostomy bag noted to have residuals with towel over it this morning. Patient alert and oriented to person and place. Clear on auscultation bilateral lung lobes. No edema noted lower extremities Per surgeon recommedations: continue imodium for goal ileostomy output <1500cc/24h Plan for surgery when Cr improves. NPO after midnight in case Cr normalizes tomorrow Exam Vital Signs Temp Pulse Resp BP Pulse Ox O2 Del Method O2 Flow Rate 97.4 F 125 H 16 144/67 H 92 L Nasal Cannula 1 04/07/24 07:56 04/07/24 09:02 04/07/24 07:56 04/07/24 09:02 04/07/24 07:56 04/07/24 07:56 04/07/24 07:56 Narrative Exam GENERAL: Well groomed, in no acute distress HEENT: Dry mucosa. Eyes open, symmetrical, & clear CARDIO: Tachycardia without obvious murmurs PULM: No noted coughing/dyspnea. Lungs CTA B/L GI: Abdomen soft, nondistended, non-tender. Colostomy bag with content, minimal leak, cellulitis in surrounding area. URO/MANAGED CARE SPECIALIST:: No further abnormalities noted. SKIN/MSK/EXT: No wounds/rashes/edema/amputations, no pain on palpation. 1 dorsalis pedis pulses present B/L NEURO: SOFTWARE ASSET MANAGEMENT ANALYST grossly intact, AAOx2. Objective Labs 04/09/24 05:55 04/09/24 05:55 Labs: Laboratory Results - last 24 hr 04/06/24 04/07/24 12:04 07:35 WBC 8.7 RBC 3.49 L Hgb 9.9 L Hct 30.8 L MCV 88 MCH 28.4 MCHC 32.1 RDW Std Deviation 52.4 H Plt Count 547 H D Neut % (Auto) 44 Lymph % (Auto) 39 [place] % (Auto) 11 Eos % (Auto) 1 Baso % (Auto) 1 Neut # (Auto) 3.8 Lymph # (Auto) 3.4 [place] # (Auto) 0.9 H Eos # (Auto) 0.1 Baso # (Auto) 0.1 Immature Gran # (Auto) 0.41 H Absolute Nucleated RBC 0.00 Immature Gran % 5 H Nucleated RBC % 0 Sodium 127 L 131 L Potassium 4.3 4.1 Chloride 86 L 92 L Carbon Dioxide 29.2 29.5 Anion Gap 12 10 BUN 65 H 65 H Creatinine 2.4 H 1.8 H D Estim Creat Clear Calc 18.0 L 24.5 L eGFR 20 L 28 L BUN/Creatinine Ratio 27 H 36 H Glucose 102 100 Calculated Osmolality 273 L 281 Calcium 8.6 9.2 Corrected Calcium 9.9 Phosphorus 4.2 Magnesium 1.3 L Total Bilirubin 0.4 AST 31 ALT 15 Alkaline Phosphatase 723 H Total Protein 6.5 Albumin 3.1 L Globulin 3.4 Albumin/Globulin Ratio 0.9 L ABG Interpretation ABG results: 03/21/24 05:40 ABG pH 7.35 ABG pCO2 41 ABG pO2 121 H ABG HCO3 23 ABG O2 Saturation 99 H ABG Base Excess -3 Quality Measures Quality Measures VTE prophylaxis and sepsis Current suspected stage: sepsis Possible source: skin/soft tissue Blood cultures ordered: yes Antibiotic ordered: Yes Advance care planning discussed with:: patient Assessment & Plan Assessment Current Active Medications: Generic Name Dose Route Start Last Admin Trade Name Freq PRN Reason Stop Dose Admin Acetaminophen 650 mg 03/21/24 05:19 Acetaminophen 325 Mg Tablet PO 04/20/24 05:18 Q6H PRN Fever >101.5 Albuterol/Ipratropium 3 ml 03/21/24 15:51 Albuterol/Ipratropium (Duoneb) Rt Tia 3 Ml Nebu INH 04/20/24 18:59 Q4HRRT PRN Shortness of breath Dextrose 25 ml 03/31/24 09:56 Dextrose 50%-Water Inj 50 Ml Syringe IV 04/30/24 09:55 Q15MIN PRN BG 50-70 responsive npo pt Dextrose 50 ml 03/31/24 09:56 Dextrose 50%-Water Inj 50 Ml Syringe IV 04/30/24 09:55 Q15MIN PRN BG <50 OR BG <70 & pt unresponsive Donepezil HCl 10 mg 03/21/24 21:00 04/06/24 21:18 Donepezil Hcl 5 Mg Tablet PO 04/20/24 20:59 10 mg HS ASHISH Administration Doxycycline Hyclate 100 mg 04/01/24 09:30 04/07/24 08:08 Doxycycline 100 Mg Tablet PO 04/08/24 09:29 100 mg BID ASHISH Administration Glucagon 1 mg 03/31/24 09:56 Glucagon Inj 1 Mg Vial IM Q15MIN PRN BG <70, and no IV access Hydralazine HCl 10 mg 03/21/24 15:45 Hydralazine Hcl 10 Mg Tablet PO 04/20/24 17:59 Q6HR PRN SBP>160 Albumin Human 25 gm in 100 mls @ 100 mls/min 03/21/24 10:54 Albuminar-25 Ivpb IV PRN PRN DIALYSIS Levothyroxine Sodium 112 mcg/ 137 mcg 03/21/24 07:30 04/07/24 06:38 Levothyroxine Sodium 25 mcg PO 04/20/24 07:29 137 mcg ACBR ASHISH Administration Loperamide HCl 10 mg 04/06/24 14:00 04/07/24 06:38 Loperamide 2 Mg Capsule PO 04/13/24 13:59 10 mg TID ASHISH Administration Lorazepam 2 mg 04/05/24 04:09 Lorazepam 2 Mg/Ml Vial IVP Q15M PRN seizure Magnesium Oxide 400 mg 04/04/24 15:30 04/07/24 08:07 Magnesium Oxide 400 Mg Tablet PO 05/04/24 15:29 400 mg QDAY ASHISH Administration Metoprolol Tartrate 25 mg 03/21/24 21:00 04/07/24 09:02 Metoprolol Tartrate 25 Mg Tablet PO 04/20/24 20:59 25 mg BID ASHISH Administration Ondansetron HCl 4 mg 03/21/24 06:08 04/06/24 22:13 Ondansetron Inj 2 Mg/Ml Inj 2 Ml IV 04/20/24 06:07 4 mg Q6H PRN Administration NAUSEA OR VOMITING Protocol Sodium Chloride 3 ml 03/21/24 08:25 Sodium Chloride Rt Tia 0.9% 3 Ml Nebu INH 04/20/24 08:24 PRN PRN SOLN Valproic Acid 750 mg 04/03/24 09:00 04/07/24 08:07 Valproic Acid Syrup 250 Mg/5 Ml Udc PO 05/03/24 08:59 750 mg BID ASHISH Administration Plan 78-year-old female with a past medical history of hypothyroidism, hypertension, JACKIE, asthma, depression, dementia, recurrent UTI, and is status post hemicolectomy with ileostomy admitted for acute uremic encephalopathy, stage III acute kidney injury, sepsis secondary to UTI versus intra-abdominal abscess. Pending reverse ileostomy to be done by general surgeon, anticipate by 04/09/24. Hyperkalemic protocol initiated with 5 units of insulin, D50 and sevelamer as well as albuterol on admission. #Right colectomy with diverting ileostomy #Reverse ileostomy, pending Patient had a necrotic cecal mass in December 2023 consequently had a hemicolectomy with diverting ileostomy done by general surgeon Dr. Flynn. Due to possible colostomy leakage/malfunction/complications, patient was 3 times since the procedure. On physical exam, colostomy bag with green residual in the bag. Per surgeon, ileostomy reversal will be completed once creatinine is less than 1.5. Creatinine today 1.8 downtrending from 2.4. Anticipate surgery tomorrow if renal function improves. Plan: -Normal saline at 75 cc per hour -Continue Imodium -monitor renal function -General Surgery consulted, ileostomy reversal will be completed once creatinine improves to less than 1.5. Possibly by 04/09/24. -n.p.o. at midnight, in case procedure to be done on 04/08/2024. 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 She was found to have left-sided weakness which has resolved. Teleneuro was consulted, stroke alert was called. CT head and CTA negative for any acute findings. Patient was evaluated by Neurologist Dr Brush , who suspects that patient might have complex partial seizures and recommended doubling valproate dose in place of Keppra due to better side effect profile. Patient currently witnessed to have bilateral tremors. Patient denied any dizziness, headache, nausea, vomiting. Plan: -Continue Valproate 750mg twice daily -Seizure precautions -Holding memantine -Neurologist Dr. Brush following; appreciate further recommendations #Mild hypovolemic hyponatremia Possible component of dehydration leading to hyponatremia. Likely secondary to GI losses through colostomy bag. Patient was noted to have residuals per nursing staff. On physical examination, patient had very dry mucous membranes and often does not consume her full meal. Sodium up trended from 128 to 131, osmolality 281. Plan: -Continue IV fluids -colostomy bag drainage as needed -Follow-up CMP #E.Coli UTI-treated #Intra-abdominal fluid collection, possible abscess or infection #History of recurrent UTI Patient initially reported dysuria and cloudy urine with hx of recurrent UTIs. Found to have elevated WBC on admission, now resolved. CT A/P 03/31: Fluid collection 5.4 x 4.0 x 2.2 cm in subcutaneous fatty tissue anterior pelvic wall, differentials include abcess and hematoma Most recent urine cultures positive for E. coli, pansensitive. General surgeon Dr. Flynn consulted, recommends to continue wound care Patient was evaluated by the general surgeon Dr. Flynn who is considering takedown of the ileostomy following a CT scan with contrast which will be done when renal function is much better. Patient had incision and drainage done 04/[address] Flynn, expressed approximately 20 cc of p.o., wound was irrigated with saline and packed, patient tolerated procedure well. Repeat blood cultures preliminary are negative. WBC downtrending, 13.3 today. Will de-escalate antibiotics and stop IV Zosyn, continue on doxycycline Surgery recommendations appreciated, anticipate surgery in 3 days. Blood culture, negative x2 final. Plan: -Continue doxycycline 100mg BID (04/02- -IV Zosyn (03/21-04/02) ?General Surgeon Dr. Flynn consulted, following recommendations -Continue wound care -Continue to monitor CBC #Increased ileostomy output -CT Loperamide 10mg TID has been stopped -Encourage increased oral intake -Continue to monitor CMP -Avoid nephrotoxins -Renally dose medications -General surgeon Dr. Flynn and industrial robotics mechanic Dr. Rahman following #Electrolyte imbalances #Hypomagnesemia Urgent dialysis indicated on admission, patient had temporary catheter placement. Holding dialysis for now because renal function is improving Plan: ? Visitor Services Specialist Dr. Rahman following ? Continue to monitor CMP #History of hypothyroidism Patient has a history of hypothyroidism. She takes levothyroxine at home. Plan ?levothyroxine 125 mcg before breakfast #History of hypertension Chronic, uncontrolled Patient has a longstanding hypertension on both metoprolol and hydralazine. Plan ? Metoprolol tartrate 25mg BID - Hydralazine 10mg Q6HR PRN for SBP >160 #History of depression #History of dementia #History of bipolar disorder #History of anxiety Plan ? Resume home medications donepezil and memantine -Valproate 750mg BID #History of asthma Plan ? DuoNebs every 4 hours breathing treatment as needed #Hyperkalemia-resolved #Hypochloremia-resolved #Hypocalcemia-resolved #Hyperphosphatemia-resolved #Sepsis, resolved #Acute encephalopathy uremic vs infectious-resolved #Acute kidney injury-resolved DVT prophylaxis: SCD GI prophylaxis: Not indicated Diet: Dysphagia 1?pur?ed Lines: Peripheral IV Code status: Full code Disposition: Pending reverse ileostomy procedure with general surgery, planned 04/07. MAKENZIE evans , nephrology following. Discussed case with my attending Dr. Bermudez and senior Rick, PGY-3. Thank you, Caitlyn Mccarthy, PGY-2 Attending Provider Attestation/Addendum 78-year-old female with multiple comorbidities including hypertension, hyperlipidemia, asthma not on home oxygen and cecal mass status post right hemicolectomy and diverting ileostomy on 12/20/2023 who presented to the ER on 03/21/2024 with chief complaint of altered mentation found to have acute uremic encephalopathy and intraoral abdominal abscesses subsequently started on IV antibiotic therapy and subsequently hemodialysis. Was initiated. During course of hospitalization, patient did receive multiple hemodialysis session and plan for reversing the ileostomy. As of now, continue to monitor closely. As for mentation, patient is alert and oriented to name, date of and place and kidney function improving without need for further hemodialysis. Will follow-up with general surgery regarding reversal of ileostomy. Overnight, no further seizure-like activity and patient creatinine improving. Will reach out to general surgery regarding surgical intervention. As of now, patient is alert and oriented to name, date of and place however continues to have high output from colostomy. I reviewed above note and agree with findings and plans. I have also personally examined the patient with medicine team and went over assessment and plan with medical team including business services intern and resident physician.
--- NOTE | 2024-04-07 11:45 | ESPR_ITS ---
Documentation for date of: 04/07/24 Subjective Subjective Brief History: 78F with HTN, CHF, hypothyroidism who underwent right hemicolectomy with diverting ileostomy for fecal contamination 12/19, admitted in past for MAKENZIE here now with AMS and acute renal failure, planned for emergent HD. Workup shows leukocytosis and possible abdominal fluid collection PMH: HTN, CHF, hypothyroidism, bipolar disorder PSHx: Tonsillectomy, appendectomy, cholecystectomy, hysterectomy, R hemicolectomy with diverting ileostomy 12/19 for benign necrotic mass Meds: no anticoagulation Allergies: haldol, naproxen, fluoxetine Social hx: Nonsmoker Narrative: Pain controlled, ileostomy output 1350cc/24h, Cr downtrending now 1.8 Exam Vital Signs Temp Pulse Resp BP Pulse Ox O2 Del Method O2 Flow Rate 97.4 F 125 H 16 144/67 H 92 L Nasal Cannula 1 04/07/24 07:56 04/07/24 09:02 04/07/24 07:56 04/07/24 09:02 04/07/24 07:56 04/07/24 07:56 04/07/24 07:56 Constitutional Constitutional: no acute distress Routine Respiratory Exam Respiratory: Present no resp distress Routine Abdominal Exam Abdominal: Present soft, wound (midline wound with no purulent drainage, wound vac again replaced today) and ostomy (ileostomy pink with green liquid stool in appliance, mild surrounding erythema); Absent tenderness or distended Results Results: Laboratory Laboratory results: results reviewed Assessment & Plan Plan 78F with HTN, CHF, hypothyroidism who underwent right hemicolectomy with diverting ileostomy for fecal contamination 12/19, admitted with acute renal failure, improved from that standpoint, later developing an abdominal wall abscess which was drained 04/01. As pt is recovering well and has reached the 3- month roxana from her original surgery, I explained that ileostomy reversal can now be undertaken. I explained risks of infection, bleeding and bowel obstruction; pt expressed understanding and is agreeable to proceeding, now awaiting improvement in renal function Strict I&O, continue imodium for goal ileostomy output <1500cc/24h Plan for surgery when Cr improved, possibly this weekend NPO after midnight in case Cr normalizes tomorrow
[2024-04-07] MEDS: Magnesium Sulfate 2 GM Ivpb 2 GM/50 ML BAG IV (11:56)
[2024-04-07] MEDS: PANTOPRAZOLE 40 MG TABLET PO (12:05)
[2024-04-07] MEDS: SODIUM CHLORIDE 0.9% 1000 ML 1,000 ML 75 ML IV (13:53)
--- NOTE | 2024-04-07 19:15 | PC.NURSE ---
Dr. Stern notified of wound vac/ ileostomy leaking. Did not hear back, notified night team Dr. Moreno. Dr. Moreno ordered to keep towels to keep leakage to a minimum and would try and follow up with Dr. Flynn.
[2024-04-07] MEDS: DONEPEZIL HCL 5 MG TABLET 10 MG PO (20:03)
[2024-04-07] MEDS: ONDANSETRON INJ 2 MG/ML INJ 2 ML 4 MG IV (21:34)
[2024-04-08] VITALS (13 sets, daily range): BP systolic 135–166; BP diastolic 59–85; PULSE 59–70; RESP 13–99; TEMP 35.9–36.3; O2SAT 97–100; BMI 23.0
[2024-04-08] MEDS: HYDROcodone/APAP 5/325 TABLET 1 TAB PO ×2 (00:06→15:58)
[2024-04-08] MEDS: PANTOPRAZOLE INJ 40 MG VIAL IVP (00:06)
--- NOTE | 2024-04-08 01:03 | PC.NURSE ---
2356: Patient with complaints of abdominal pain 8/[address] Dominguez and Dr. Gaffney called and made aware. Both came to bedside to assess patient. Both also made aware and assessed drainage to colostomy and wound vac. New orders placed for x1 [place] 5/325 PO and IVP 40mg Protonix now. see MAR. Orders to reinforce dressing to abdomen as needed for leakage.
[2024-04-08] MEDS: ONDANSETRON INJ 2 MG/ML INJ 2 ML 4 MG IV ×2 (02:41→20:53)
[2024-04-08] MEDS: HYDROmorphone INJ 2 MG/ML VIAL 0.25 MG IVP (04:15)
[2024-04-08 06:56] LABS: Basophils # (Auto) 0.1 Thou/mm3 (0.0-0.2); Basophils % (Auto) 1 % (0-2.5); Eosinophils % (Auto) 0 % (0-10); Hematocrit 34.1 % (36.0-46.0); Hemoglobin 11.5 g/dL (12.0-16.0); Immature Granulocytes % (Auto) 5 % (0-0); Immature Granulocytes Auto 0.41 Thou/mm3 (0.00-0.00); Lymphocytes % (Auto) 24 % (10-50); Mean Corpuscular HGB Conc 33.7 g/dl (31.0-37.0); Mean Corpuscular Hemoglobin 29.2 pg (25.0-35.0); Mean Corpuscular Volume 87 fL (80-100); Monocytes # (Auto) 0.5 Thou/mm3 (0.0-0.8); Monocytes % (Auto) 6 % (0-12); Neutrophils # (Auto) 5.3 Thou/mm3 (1.8-7.7); Neutrophils % (Auto) 64 % (37-80); Nucleated Red Blood Cell # 0.04 Thou/mm3 (0.00-0.00); Nucleated Red Blood Cell % 1 /100 WBC (0); Platelet Count 593 Thou/mm3 (140-440); RDW Standard Deviation 51.1 fL (36.4-46.3); Red Blood Count 3.94 Miln/mm3 (4.00-5.20); White Blood Count 8.3 Thou/mm3 (3.6-11.0)
[2024-04-08 07:06] LABS: INR 1.8 (0.9-1.3); Partial Thromboplastin Time 34.2 Seconds (22.0-36.0); Prothrombin Time 18.8 Seconds (9.0-12.2)
[2024-04-08 07:20] LABS: Alanine Aminotransferase 14 U/L (10-49); Albumin, Serum 3.6 gm/dL (3.4-4.8); Anion Gap 10 (7-16); Aspartate Amino Transferase 34 U/L (0-34); BUN/Creatinine Ratio 30 Ratio (12-20); Bilirubin,Total 0.4 mg/dL (0.3-1.2); Blood Urea Nitrogen 48 mg/dL (9-23); Chloride 93 mMol/L (98-107); Creatinine (Component) 1.6 mg/dL (0.6-1.3); Estimated Creatinine Clearance 24.6 mL/min (>60); Glucose 93 mg/dL (74-106); Magnesium 1.8 mg/dL (1.6-2.6); Osmolality,Calculated 275 (275-295); Phosphorous 3.8 mg/dL (2.4-5.1); Potassium 3.6 mMol/L (3.4-5.1); Sodium 131 mMol/L (136-145); eGFR 33 See Note
[2024-04-08 07:21] LABS: Albumin/Globulin Ratio 1.1 (1.2-2.2); Alkaline Phosphatase 731 U/L (46-116); Calcium (Corrected) 9.3 mg/dL (8.5-10.1); Globulin 3.4 gm/dL (2.3-3.5)
[2024-04-08] MEDS: MAGNESIUM OXIDE 400 MG TABLET PO (08:19)
[2024-04-08] MEDS: PANTOPRAZOLE 40 MG TABLET PO (08:19)
[2024-04-08] MEDS: DOXYCYCLINE 100 MG TABLET PO (08:19)
[2024-04-08] MEDS: METOPROLOL TARTRATE 25 MG TABLET PO (08:19)
[2024-04-08] MEDS: VALPROIC ACID SYRUP 250 MG/5 ML UDC 750 MG PO ×2 (08:19→20:43)
--- NOTE | 2024-04-08 08:44 | ESPR_ITS ---
<Statement entered by Lonnie Rick DO - 04/08/24 20:29> Senior attestation: Patient was examined and case was reviewed with team including attending physician. Note reviewed, I agree with most of its contents and agree with the patient's care. General surgeon Dr. Flynn following, anticipate ileostomy reversal procedure 04/09 if creatinine function allows. Will hold imodium today, creatinine function improving. Lonnie Rick DO PGY-3 Documentation for date of: 04/08/24 Subjective Subjective Interval history: Overnight patient had pain in her abdomen and she received norco and tylenol. Her colostomy bag was leaking, tegaderm was removed and changed by nursing staff. Patient seen and observed at bedside. Labs reviewed. Colostomy bag noted to have residuals with towel over it. Patient said that immodium made her stomach hurt. She would like to no longer receive it. Per surgeon recommedations: continue imodium for goal ileostomy output <1500cc/24h Dr. Flynn surgeon will monitor Cr, once Cr normalizes <1.5 , surgery will be done; recommends NPO with D5NS. Started D5ns. Will hold immodium to respect patient refusal of it. Exam Vital Signs Temp Pulse Resp BP Pulse Ox O2 Del Method O2 Flow Rate 97.4 F 70 18 136/62 H 97 Room Air 1 04/08/24 08:00 04/08/24 08:19 04/08/24 08:00 04/08/24 08:19 04/08/24 08:00 04/08/24 03:58 04/07/24 16:00 Narrative Exam GENERAL: Well groomed, in no acute distress HEENT: Dry mucosa. Eyes open, symmetrical, & clear CARDIO: RRR, S1 and S2, without obvious murmurs PULM: No noted coughing/dyspnea. Lungs CTA B/L GI: Abdomen soft, nondistended, non-tender. Colostomy bag with greenish content, leak noted with cellulitis in surrounding area. SKIN/MSK/EXT: No wounds/rashes/edema/amputations. SCDs noted on extremities bilaterally. NEURO: PROGRAM FACILITATOR grossly intact, AAOx2. Objective Labs 04/09/24 05:55 04/09/24 05:55 Labs: Laboratory Results - last 24 hr 04/07/24 04/08/24 07:35 06:33 WBC 8.7 8.3 RBC 3.49 L 3.94 L Hgb 9.9 L 11.5 L Hct 30.8 L 34.1 L MCV 88 87 MCH 28.4 29.2 MCHC 32.1 33.7 RDW Std Deviation 52.4 H 51.1 H Plt Count 547 H D 593 H D Neut % (Auto) 44 64 Lymph % (Auto) 39 24 [place] % (Auto) 11 6 Eos % (Auto) 1 0 Baso % (Auto) 1 1 Neut # (Auto) 3.8 5.3 Lymph # (Auto) 3.4 2.0 [place] # (Auto) 0.9 H 0.5 Eos # (Auto) 0.1 0.0 Baso # (Auto) 0.1 0.1 Immature Gran # (Auto) 0.41 H 0.41 H Absolute Nucleated RBC 0.00 0.04 H Immature Gran % 5 H 5 H Nucleated RBC % 0 1 H PT 18.8 H INR 1.8 H APTT 34.2 Sodium 131 L 131 L Potassium 4.1 3.6 D Chloride 92 L 93 L Carbon Dioxide 29.5 28.0 Anion Gap 10 10 BUN 65 H 48 H Creatinine 1.8 H D 1.6 H Estim Creat Clear Calc 24.5 L 24.6 L eGFR 28 L 33 L BUN/Creatinine Ratio 36 H 30 H Glucose 100 93 Calculated Osmolality 281 275 Calcium 9.2 9.0 Corrected Calcium 9.9 9.3 Phosphorus 4.2 3.8 Magnesium 1.3 L 1.8 Total Bilirubin 0.4 0.4 AST 31 34 ALT 15 14 Alkaline Phosphatase 723 H 731 H Total Protein 6.5 7.0 Albumin 3.1 L 3.6 D Globulin 3.4 3.4 Albumin/Globulin Ratio 0.9 L 1.1 L ABG Interpretation ABG results: 03/21/24 05:40 ABG pH 7.35 ABG pCO2 41 ABG pO2 121 H ABG HCO3 23 ABG O2 Saturation 99 H ABG Base Excess -3 Quality Measures Quality Measures VTE prophylaxis and sepsis Current suspected stage: sepsis Possible source: skin/soft tissue Blood cultures ordered: yes Antibiotic ordered: Yes Advance care planning discussed with:: patient Assessment & Plan Assessment Current Active Medications: Generic Name Dose Route Start Last Admin Trade Name Freq PRN Reason Stop Dose Admin Acetaminophen 650 mg 03/21/24 05:19 Acetaminophen 325 Mg Tablet PO 04/20/24 05:18 Q6H PRN Fever >101.5 Hydrocodone Bitart/Acetaminophen 1 tab 04/08/24 07:21 Hydrocodone/Apap 5/325 Tablet PO 04/13/24 07:20 Q6HR PRN PAIN SCALE 4-10(Mod-Sev Albuterol/Ipratropium 3 ml 03/21/24 15:51 Albuterol/Ipratropium (Duoneb) Rt Tia 3 Ml Nebu INH 04/20/24 18:59 Q4HRRT PRN Shortness of breath Dextrose 25 ml 03/31/24 09:56 Dextrose 50%-Water Inj 50 Ml Syringe IV 04/30/24 09:55 Q15MIN PRN BG 50-70 responsive npo pt Dextrose 50 ml 03/31/24 09:56 Dextrose 50%-Water Inj 50 Ml Syringe IV 04/30/24 09:55 Q15MIN PRN BG <50 OR BG <70 & pt unresponsive Donepezil HCl 10 mg 03/21/24 21:00 04/07/24 20:03 Donepezil Hcl 5 Mg Tablet PO 04/20/24 20:59 10 mg HS ASHISH Administration Doxycycline Hyclate 100 mg 04/01/24 09:30 04/08/24 08:19 Doxycycline 100 Mg Tablet PO 04/08/24 09:29 100 mg BID ASHISH Administration Glucagon 1 mg 03/31/24 09:56 Glucagon Inj 1 Mg Vial IM Q15MIN PRN BG <70, and no IV access Hydralazine HCl 10 mg 03/21/24 15:45 Hydralazine Hcl 10 Mg Tablet PO 04/20/24 17:59 Q6HR PRN SBP>160 Albumin Human 25 gm in 100 mls @ 100 mls/min 03/21/24 10:54 Albuminar-25 Ivpb IV PRN PRN DIALYSIS Levothyroxine Sodium 112 mcg/ 137 mcg 03/21/24 07:30 04/08/24 05:02 Levothyroxine Sodium 25 mcg PO 04/20/24 07:29 Not Given ACBR ASHISH Loperamide HCl 10 mg 04/06/24 14:00 04/08/24 05:02 Loperamide 2 Mg Capsule PO 04/13/24 13:59 Not Given TID ASHISH Lorazepam 2 mg 04/05/24 04:09 Lorazepam 2 Mg/Ml Vial IVP Q15M PRN seizure Magnesium Oxide 400 mg 04/04/24 15:30 04/08/24 08:19 Magnesium Oxide 400 Mg Tablet PO 05/04/24 15:29 400 mg QDAY ASHISH Administration Metoprolol Tartrate 25 mg 03/21/24 21:00 04/08/24 08:19 Metoprolol Tartrate 25 Mg Tablet PO 04/20/24 20:59 25 mg BID ASHISH Administration Ondansetron HCl 4 mg 03/21/24 06:08 04/08/24 02:41 Ondansetron Inj 2 Mg/Ml Inj 2 Ml IV 04/20/24 06:07 4 mg Q6H PRN Administration NAUSEA OR VOMITING Protocol Pantoprazole Sodium 40 mg 04/07/24 12:00 04/08/24 08:19 Pantoprazole 40 Mg Tablet PO 05/07/24 11:59 40 mg QDAY ASHISH Administration Sodium Chloride 3 ml 03/21/24 08:25 Sodium Chloride Rt Tia 0.9% 3 Ml Nebu INH 04/20/24 08:24 PRN PRN SOLN Valproic Acid 750 mg 04/03/24 09:00 04/08/24 08:19 Valproic Acid Syrup 250 Mg/5 Ml Udc PO 05/03/24 08:59 750 mg BID ASHISH Administration Plan 78-year-old female with a past medical history of hypothyroidism, hypertension, JACKIE, asthma, depression, dementia, recurrent UTI, and is status post hemicolectomy with ileostomy admitted for acute uremic encephalopathy, stage III acute kidney injury admitted sepsis secondary to UTI versus intra-abdominal abscess. Hyperkalemic protocol initiated with 5 units of insulin, D50 and sevelamer as well as albuterol on admission. Patient received emergent dialysis for worsening renal function and electrolyte abnormalities. Currently pending reverse ileostomy to be done by general surgeon, anticipate by 04/09/24. 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 Flynn. Patient had incision and drainage done 04/[address] Flynn, wound was irrigated with saline and packed, without complications. Due to possible colostomy leakage/malfunction/complications, patient had 3 admissions since the procedure. Colostomy bag continues to leak even with tegaderm changes by nursing. Dr. Flynn made aware. Patient no longer tolerates immodium. Plan: -Dr. Flynn surgeon consulted; recommeds imodium for goal ileostomy output <1500cc/24h; reverse ileostomy when Cr improves, and recommends NPO with D5NS. -ileostomy reversal will be completed once creatinine improves to less than 1.5. Possibly by 04/09/24. -Npo -D5NS at 75 cc/hr. -Hold Imodium -colostomy bag drainage as needed -Continue wound care -Continue to monitor CMP #New onset seizures #Complex partial seizures Suspicion of seizures marked by shakiness and blank staring. Teleneuro was consulted. CT head and CTA negative for any acute findings. Patient has been seizure free over 48hrs. New onset intermittent bilateral tremors noted. Patient denied any dizziness, headache, nausea, vomiting. Plan: -Neurologist Dr Brush consulted; suspected complex partial seizures and recommended doubling valproate dose in place of Keppra due to better side effect profile. -Valproate 750mg twice daily -Seizure precautions #Mild hypovolemic hyponatremia Possible component of dehydration leading to hyponatremia due to poor oral intake. Hyponatremia is likely also contributed to GI losses through colostomy bag. On physical examination, patient had very dry mucous membranes and often does not consume full meals. Sodium up trended from 128 to 131, osmolality 275. Plan: -Continue IV fluids -Follow-up CMP #E.Coli UTI, improving #History of recurrent UTI Patient initially reported dysuria and cloudy urine with hx of recurrent UTIs. CT A/P 03/31: Fluid collection 5.4 x 4.0 x 2.2 cm in subcutaneous fatty tissue anterior pelvic wall, differentials include abcess and hematoma Repeat Blood culture, negative x2 final. Urine cultures positive for E. coli, pansensitive. Plan: -Continue doxycycline 100mg BID (04/02- -IV Zosyn (03/21-04/02) ?General Surgeon Dr. Flynn consulted, following recommendations -Continue to monitor CBC #MAKENZIE, stable Differential diagnosis: Prerenal versus possible ischemic ATN Patient might likely have prerenal MAKENZIE in the setting of poor oral intake. Patient has not been consuming 100% of meals. Creatinine down trended from 1.8 to 1.6 today. Plan: -IV fluids -Avoid nephrotoxins -Renally dose medications -Avoid diuretics and NSAIDs -Manager [employer] Dr. Rahman following #Electrolyte imbalances #Hyperkalemia, resolved #Hypomagnesemia Urgent dialysis indicated on admission, patient had temporary catheter placement. Holding dialysis for now because renal function is improving Plan: ? [employer] Dr. Rahman following ? Continue to monitor CMP #History of hypothyroidism Patient has a history of hypothyroidism. She takes levothyroxine at home. Plan ?levothyroxine 125 mcg before breakfast #History of hypertension Chronic, uncontrolled Patient has a longstanding hypertension on both metoprolol and hydralazine. Plan ? Metoprolol tartrate 25mg BID - Hydralazine 10mg Q6HR PRN for SBP >160 #History of depression #History of dementia #History of bipolar disorder #History of anxiety Plan - donepezil 10mg daily -Valproate 750mg BID #History of asthma Plan ? DuoNebs every 4 hours breathing treatment as needed #Hypochloremia-resolved #Hypocalcemia-resolved #Hyperphosphatemia-resolved #Sepsis, resolved #Acute encephalopathy uremic vs infectious-resolved #Acute kidney injury-resolved DVT prophylaxis: SCD GI prophylaxis: Pantoprazole daily Diet: NPO Lines: Peripheral IV with D5NS Code status: Full code Disposition: Pending reverse ileostomy procedure with general surgery, planned 04/09/24. MAKENZIE stable , nephrology following. Discussed case with my attending Dr. Bermudez and senior Rick, PGY-3. Thank you, Caitlyn Mccarthy, PGY-2 Attending Provider Attestation/Addendum 78-year-old female with multiple comorbidities including hypertension, hyperlipidemia, asthma not on home oxygen and cecal mass status post right hemicolectomy and diverting ileostomy on 12/20/2023 who presented to the ER on 03/21/2024 with chief complaint of altered mentation found to have acute uremic encephalopathy and intraoral abdominal abscesses subsequently started on IV antibiotic therapy and subsequently hemodialysis. Was initiated. During course of hospitalization, patient did receive multiple hemodialysis session and plan for reversing the ileostomy. As of now, continue to monitor closely. As for mentation, patient is alert and oriented to name, date of and place and kidney function improving without need for further hemodialysis. Will follow-up with general surgery regarding reversal of ileostomy. Overnight, no further seizure-like activity and patient creatinine improving. Will reach out to general surgery regarding surgical intervention. As of now, patient is alert and oriented to name, date of and place however continues to have high output from colostomy. I reviewed above note and agree with findings and plans. I have also personally examined the patient with medicine team and went over assessment and plan with medical team including quality intern and resident physician.
[2024-04-08] MEDS: DEXTROSE 5%-NS 1,000 ML 75 ML IV ×2 (09:36→23:22)
--- NOTE | 2024-04-08 22:59 | PC.NURSE ---
1015: Dr. Flynn called and made aware of increased leakage to ileostomy site despite several attempts of reinforcing dressing around ileostomy site and hardly no output to wound vac. Per Dr. Flynn okay to remove wound vac and reapply new ostomy pouch and reinforce as needed keeping surgical site as clean as possible. Made her aware skin around ileostomy site and surgical site red, irritated and tender to touch. Per Dr. Flynn continued plans for surgery tomorrow.
[2024-04-09] VITALS (20 sets, daily range): BP systolic 139–189; BP diastolic 50–101; PULSE 63–97; RESP 9–98; TEMP 35.8–36.5; O2SAT 94–100; BMI 23.0
--- NOTE | 2024-04-09 00:51 | PC.NURSE ---
Dr. Ruth called and made aware patient has complaints of generalized itching. States he will place orders.
[2024-04-09] MEDS: DiphenhydrAMINE INJ 50 MG/ML VIAL 25 MG IV (00:59)
--- NOTE | 2024-04-09 04:30 | PC.NURSE ---
Called Dr. Guzman and made him aware patient needs consent for blood transfusion. Per patient she was not aware she would be receiving blood products. Per Dr. Guzman. he would be up to talk to patient.
[2024-04-09] MEDS: HYDROcodone/APAP 5/325 TABLET 1 TAB PO (05:36)
[2024-04-09 06:45] LABS: Basophils # (Auto) 0.1 Thou/mm3 (0.0-0.2); Basophils % (Auto) 1 % (0-2.5); Eosinophils # (Auto) 0.1 Thou/mm3 (0.0-0.5); Eosinophils % (Auto) 1 % (0-10); Hematocrit 37.3 % (36.0-46.0); Hemoglobin 12.1 g/dL (12.0-16.0); Immature Granulocytes % (Auto) 3 % (0-0); Immature Granulocytes Auto 0.34 Thou/mm3 (0.00-0.00); Lymphocytes # (Auto) 2.1 Thou/mm3 (1.0-4.8); Lymphocytes % (Auto) 20 % (10-50); Mean Corpuscular HGB Conc 32.4 g/dl (31.0-37.0); Mean Corpuscular Hemoglobin 28.1 pg (25.0-35.0); Mean Corpuscular Volume 87 fL (80-100); Monocytes # (Auto) 0.7 Thou/mm3 (0.0-0.8); Monocytes % (Auto) 7 % (0-12); Neutrophils # (Auto) 7.1 Thou/mm3 (1.8-7.7); Neutrophils % (Auto) 68 % (37-80); Nucleated Red Blood Cell # 0.02 Thou/mm3 (0.00-0.00); Nucleated Red Blood Cell % 0 /100 WBC (0); Platelet Count 434 Thou/mm3 (140-440); RDW Standard Deviation 50.5 fL (36.4-46.3); Red Blood Count 4.31 Miln/mm3 (4.00-5.20); White Blood Count 10.4 Thou/mm3 (3.6-11.0)
[2024-04-09 07:03] LABS: Alanine Aminotransferase 14 U/L (10-49); Albumin, Serum 3.3 gm/dL (3.4-4.8); Albumin/Globulin Ratio 1.1 (1.2-2.2); Alkaline Phosphatase 639 U/L (46-116); Anion Gap 10 (7-16); Aspartate Amino Transferase 24 U/L (0-34); BUN/Creatinine Ratio 35 Ratio (12-20); Bilirubin,Total 0.4 mg/dL (0.3-1.2); Blood Urea Nitrogen 56 mg/dL (9-23); Calcium 8.9 mg/dL (8.3-10.6); Calcium (Corrected) 9.5 mg/dL (8.5-10.1); Chloride 99 mMol/L (98-107); Creatinine (Component) 1.6 mg/dL (0.6-1.3); Estimated Creatinine Clearance 24.6 mL/min (>60); Globulin 3.1 gm/dL (2.3-3.5); Glucose 114 mg/dL (74-106); Magnesium 1.6 mg/dL (1.6-2.6); Osmolality,Calculated 286 (275-295); Phosphorous 3.7 mg/dL (2.4-5.1); Potassium 4.3 mMol/L (3.4-5.1); Sodium 135 mMol/L (136-145); Total Protein 6.4 gm/dL (5.7-8.2); eGFR 33 See Note
[2024-04-09 09:12] LABS: INR 2.3 (0.9-1.3); Prothrombin Time 23.5 Seconds (9.0-12.2)
--- NOTE | 2024-04-09 09:22 | PC.NURSE ---
Pt was taken to sx at this time
--- NOTE | 2024-04-09 10:23 | PC.SS ---
Rounding: Patient will have surgery today with Rina.
--- NOTE | 2024-04-09 11:58 | ESOP_ITS ---
Date of Procedure 04/09/24 Pre Op Diagnosis Ileostomy status Post Op Diagnosis Same Procedure Exploratory laparotomy, reversal of ileostomy Findings Intra-abdominal adhesions requiring laparotomy to mobilize ileum, [id number] ileo-ileal anastomosis created Procedure Description After discussion of risks and benefits, patient was brought to the operating room, SCDs were placed and general anesthesia was induced. She received preoperative antibiotics and the ileostomy was closed with a running 2-0 silk suture. Patient was prepped and draped in the usual sterile fashion. After timeout a peristomal incision was made with a #15 blade the tissues were dissected with a combination of blunt dissection and electrocautery with the goal of mobilizing the afferent and efferent limbs of the ileostomy. The afferent limb was easily mobilized but the efferent limb seemed quite adherent so ultimately I decided to make a midline incision for proper mobilization. Patient's existing midline incision was opened with a #10 blade and the tissues were dissected with electrocautery. Patient was noted to have extensive abdominal adhesions which were bluntly dissected to mobilize the efferent limb of the ileostomy. Ultimately this efferent limb was freed and the existing ileostomy was transected using 2 fires of the 60 mm blue load [place] stapler. The mesentery was transected with an Enseal device. The proximal and distal limbs of the ileum were then anastomosed to each other using 2 sequential fires of 60 mm blue load sharonda. The common enterotomy was closed with a 60 mm blue load staple and the staple line was reinforced with a 3-0 Vicryl running and locking suture. The crotch of the anastomosis was also sutured with one 3-0 Vicryl Lembert suture. The abdomen was irrigated until the effluent was clear. A transversus abdominis plane block was performed for a total of 30 cc of half percent Marcaine. The fascia of the ileostomy was reapproximated in a transverse fashion using 0 Vicryl sutures in a [id number] fashion. The midline fascia was closed with two #1 PDS sutures which were then tied to each other. The wound was irrigated, and given that she had an abdominal abscess last week with an open cavity I opted to leave the skin open to prevent a recurrent wound infection. A wound VAC was placed using GranuFoam and appropriate suction was observed. Patient was extubated and brought to PACU in stable condition Pathology / specimen Other (Ileostomy) Estimated Blood Loss 100 Surgeon Adeline Kwock, MD Surgical Staff Operation Date: 04/09/24 09:15 Case Staff Anesthesiologist: Herb Herrera RNupper cutter out: Иван Zamorano
--- NOTE | 2024-04-09 12:01 | SUR.PHASEI ---
pt received from OR in recovery bay 1. pt asleep but responds to voice, breathing unlabored on 4l nc. v/s stable. pt dressing to abd cdi, wound vac in place. outside area of abd surrounding wound vac erythema noted, Dr. Flynn made aware instructed to monitor for now. report received from Dr. Herrera and Cameron BENÍTEZ.
[2024-04-09] MEDS: MORPHINE SULF 1 MG/ML PCA SYRINGE 30 ML PCA (12:35)
[2024-04-09] MEDS: SODIUM CHLORIDE 0.9% 1000 ML 1,000 ML 50 ML IV (12:48)
--- NOTE | 2024-04-09 13:01 | ESPR_ITS ---
Documentation for date of: 04/09/24 ANESTHESIA NOTE: Patient had GETA for repeat ex lap, ileostomy reversal and wound vac placement. Pre-op, I saw her in 261. She was alert and calm in bed, NAD, denied chest pains and dyspnea. She has h/o HTN, HLD, hypothyroid, UTI, and also MAKENZIE. She did well intra-op, was intubated and extubated uneventfully, and vitals well maintained. Her pre-op INR has been elevated, so she was given 1 unit of FFP intra-op and 2nd unit was started that was completed in PACU. She received about 700 cc NS intra-op and about 350 cc of volume from FFP, UOP 100 cc. She was given 2 gm IV Cefoxitin intra-op. She did well in PACU, rested calmly, she c/o post op abdominal pain that was treated with IV Fentanyl and then Morphine LEVEL VIAL INSIDE GRINDER started by RN. She denied post op chest pain and headache. Her rhythm was sinus throughout intra-op, however in PACU I noted it was fluctuating from sinus rhythm 80s to brief A fib for few seconds. Rest of her vitals were stable, O2 99-100% on NC O2, and BP was elevated, SBP 160-170s. I gave her total 5 mg IV Metoprolol for this. He abdominal wound area appeared brightly erythematous, not sure how much of it was present pre-op, but it was blanching and checked by the surgeon. I did give her IV Morphine intra-op, however her R AC IV site and rest of body did not show any rash. I updated her daughter in the waiting room and she was just transferred back to her tele room. I called and updated resident MD about her surgery and about her rhythm in PACU. Herb Herrera MD Anesthesia Progress Note Progress Note Most recent Vital Signs: Last Vital Signs Temp 96.6 F L 04/09/24 12:35 Pulse 92 04/09/24 12:35 Resp 17 04/09/24 12:35 BP 179/101 H 04/09/24 12:35 Pulse Ox 98 04/09/24 12:35 O2 Del Method Room Air 04/09/24 08:00 O2 Flow Rate 2 04/09/24 12:35
--- NOTE | 2024-04-09 13:05 | SUR.PHASEI ---
pt asleep but responds to voice, breathing unlabored on 2l nc. v/s stable. pt dressing to abd cdi. erythema still noted around wound vac but has not spread any further. report called to Ngoc BENÍTEZ. pt will be transferred to room at this time.
--- NOTE | 2024-04-09 13:09 | PD.RESPRO ---
Documentation for date of: 04/09/24 Subjective Subjective Interval history: Patient examined at bedside today. No acute overnight events. Patient is doing okay and is ready to go to surgery. Slept okay, no other complaints at this time Exam Vital Signs Temp Pulse Resp BP Pulse Ox O2 Del Method O2 Flow Rate 96.6 F L 92 17 179/101 H 98 Room Air 2 04/09/24 12:35 04/09/24 12:35 04/09/24 12:35 04/09/24 12:35 04/09/24 12:35 04/09/24 08:00 04/09/24 12:35 Narrative Exam GENERAL: Well groomed, in no acute distress HEENT: Dry mucosa. Eyes open, symmetrical, & clear CARDIO: RRR, S1 and S2, without obvious murmurs PULM: No noted coughing/dyspnea. Lungs CTA B/L GI: Abdomen soft, nondistended, non-tender. Colostomy bag with greenish content, leak noted with cellulitis in surrounding area. SKIN/MSK/EXT: No wounds/rashes/edema/amputations. SCDs noted on extremities bilaterally. NEURO: COMMERCIAL DEVELOPMENT MANAGER grossly intact, AAOx2. PSYCH: Cooperative Objective Labs 04/09/24 05:55 04/09/24 05:55 Labs: Laboratory Results - last 24 hr 04/09/24 04/09/24 05:55 08:13 WBC 10.4 RBC 4.31 Hgb 12.1 Hct 37.3 MCV 87 MCH 28.1 MCHC 32.4 RDW Std Deviation 50.5 H Plt Count 434 D Neut % (Auto) 68 Lymph % (Auto) 20 [place] % (Auto) 7 Eos % (Auto) 1 Baso % (Auto) 1 Neut # (Auto) 7.1 Lymph # (Auto) 2.1 [place] # (Auto) 0.7 Eos # (Auto) 0.1 Baso # (Auto) 0.1 Immature Gran # (Auto) 0.34 H Absolute Nucleated RBC 0.02 H Immature Gran % 3 H Nucleated RBC % 0 PT 23.5 H D INR 2.3 H Sodium 135 L Potassium 4.3 D Chloride 99 Carbon Dioxide 26.0 Anion Gap 10 BUN 56 H Creatinine 1.6 H Estim Creat Clear Calc 24.6 L eGFR 33 L BUN/Creatinine Ratio 35 H Glucose 114 H Calculated Osmolality 286 Calcium 8.9 Corrected Calcium 9.5 Phosphorus 3.7 Magnesium 1.6 Total Bilirubin 0.4 AST 24 ALT 14 Alkaline Phosphatase 639 H D Total Protein 6.4 Albumin 3.3 L Globulin 3.1 Albumin/Globulin Ratio 1.1 L Blood Type O Negative Antibody Screen NEGATIVE Blood Bank Wristband ID Yes Blood Bank Comment FFP Ready ABG Interpretation ABG results: 03/21/24 05:40 ABG pH 7.35 ABG pCO2 41 ABG pO2 121 H ABG HCO3 23 ABG O2 Saturation 99 H ABG Base Excess -3 Quality Measures Quality Measures VTE prophylaxis and sepsis Current suspected stage: sepsis Possible source: skin/soft tissue Blood cultures ordered: yes Antibiotic ordered: No Advance care planning discussed with:: patient Assessment & Plan Assessment Current Active Medications: Generic Name Dose Route Start Last Admin Trade Name Freq PRN Reason Stop Dose Admin Acetaminophen 650 mg 03/21/24 05:19 Acetaminophen 325 Mg Tablet PO 04/20/24 05:18 Q6H PRN Fever >101.5 Hydrocodone Bitart/Acetaminophen 1 tab 04/08/24 07:21 04/09/24 05:36 Hydrocodone/Apap 5/325 Tablet PO 04/13/24 07:20 1 tab Q6HR PRN Administration PAIN SCALE 4-10(Mod-Sev Albuterol/Ipratropium 3 ml 03/21/24 15:51 Albuterol/Ipratropium (Duoneb) Rt Tia 3 Ml Nebu INH 04/20/24 18:59 Q4HRRT PRN Shortness of breath Dextrose 25 ml 03/31/24 09:56 Dextrose 50%-Water Inj 50 Ml Syringe IV 04/30/24 09:55 Q15MIN PRN BG 50-70 responsive npo pt Dextrose 50 ml 03/31/24 09:56 Dextrose 50%-Water Inj 50 Ml Syringe IV 04/30/24 09:55 Q15MIN PRN BG <50 OR BG <70 & pt unresponsive Diphenhydramine HCl 25 mg 04/09/24 00:50 04/09/24 00:59 Diphenhydramine Inj 50 Mg/Ml Vial IV 05/09/24 00:49 25 mg Q6HR PRN Administration ITCHING Donepezil HCl 10 mg 03/21/24 21:00 04/08/24 20:49 Donepezil Hcl 5 Mg Tablet PO 04/20/24 20:59 Not Given HS ASHISH Fentanyl Citrate 25 mcg 04/09/24 11:30 Fentanyl Cit Inj 50 Mcg/Ml Amp 2ml IV 04/09/24 13:30 Q5M PRN PAIN SCALE 4-10(Mod-Sev Glucagon 1 mg 03/31/24 09:56 Glucagon Inj 1 Mg Vial IM Q15MIN PRN BG <70, and no IV access Hydralazine HCl 10 mg 03/21/24 15:45 Hydralazine Hcl 10 Mg Tablet PO 04/20/24 17:59 Q6HR PRN SBP>160 Hydralazine HCl 5 mg 04/09/24 11:30 Hydralazine Inj 20 Mg/Ml Vial IV 04/09/24 13:30 Q20M PRN SEE COMMENTS Albumin Human 25 gm in 100 mls @ 100 mls/min 03/21/24 10:54 Albuminar-25 Ivpb IV PRN PRN DIALYSIS Sodium Chloride 1,000 mls @ 50 mls/hr 04/09/24 12:34 04/09/24 12:48 Ns IV 04/10/24 12:33 50 mls/hr .Q20H ASHISH Administration Levothyroxine Sodium 112 mcg/ 137 mcg 03/21/24 07:30 04/09/24 05:05 Levothyroxine Sodium 25 mcg PO 04/20/24 07:29 Not Given ACBR [facility] Loperamide HCl 10 mg 04/06/24 14:00 04/08/24 05:02 Loperamide 2 Mg Capsule PO 04/13/24 13:59 Not Given TID ASHISH Magnesium Oxide 400 mg 04/04/24 15:30 04/09/24 08:19 Magnesium Oxide 400 Mg Tablet PO 05/04/24 15:29 Not Given QDAY [facility] Meperidine HCl 12.5 mg 04/09/24 11:30 Meperidine Inj 50 Mg/Ml Vial IV 04/09/24 13:30 Q5M PRN SHIVERING Metoprolol Tartrate 25 mg 03/21/24 21:00 04/09/24 08:19 Metoprolol Tartrate 25 Mg Tablet PO 04/20/24 20:59 Not Given BID ASHISH Metoprolol Tartrate 1 mg 04/09/24 11:30 Metoprolol Tartrate Inj 1 Mg/Ml Amp 5 Ml IVP 04/09/24 13:30 Q5M PRN TACHYCARDIA Midazolam HCl 1 mg 04/09/24 11:30 Midazolam Inj 1 Mg/Ml Vial 2 Ml IV 04/09/24 13:30 Q5M PRN ANXIETY Morphine Sulfate 2 mg 04/09/24 11:30 Morphine Sulf Inj 10 Mg/Ml Vial IVP 04/09/24 13:30 Q10M PRN PAIN SCALE 4-10(Mod-Sev Morphine Sulfate 0 mg 04/09/24 12:22 04/09/24 12:35 Morphine Sulf 1 Mg/Ml Smoking Pipe Mounter Syringe 30 Ml RADIO REPAIRMAN 04/14/24 12:21 30 mg PER ORDER ASHISH Administration Protocol Ondansetron HCl 4 mg 03/21/24 06:08 04/08/24 20:53 Ondansetron Inj 2 Mg/Ml Inj 2 Ml IV 04/20/24 06:07 4 mg Q6H PRN Administration NAUSEA OR VOMITING Protocol Pantoprazole Sodium 40 mg 04/07/24 12:00 04/09/24 08:20 Pantoprazole 40 Mg Tablet PO 05/07/24 11:59 Not Given QDAY [facility] Sodium Chloride 3 ml 03/21/24 08:25 Sodium Chloride Rt Tia 0.9% 3 Ml Nebu INH 04/20/24 08:24 PRN PRN SOLN Valproic Acid 750 mg 04/03/24 09:00 04/09/24 08:20 Valproic Acid Syrup 250 Mg/5 Ml Udc PO 05/03/24 08:59 Not Given BID ASHISH Plan 78-year-old female with a past medical history of hypothyroidism, hypertension, JACKIE, asthma, depression, dementia, recurrent UTI, and is status post hemicolectomy with ileostomy admitted for acute uremic encephalopathy, stage III acute kidney injury admitted sepsis secondary to UTI versus intra-abdominal abscess. Hyperkalemic protocol initiated with 5 units of insulin, D50 and sevelamer as well as albuterol on admission. Patient received emergent dialysis for worsening renal function and electrolyte abnormalities. 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 Flynn. Patient had incision and drainage done 04/[address] Flynn, wound was irrigated with saline and packed, without complications. Due to possible colostomy leakage/malfunction/complications, patient had 3 admissions since the procedure. Colostomy bag continues to leak even with tegaderm changes by nursing. Dr. Flynn made aware. Patient no longer tolerates immodium. After reverse ileostomy, will slowly advance diet for bowel function improvement Plan: ?Reverse ileostomy today -Continue to hold Imodium -Continue wound care -Continue to monitor CMP ?RD on consult, appreciate recs #New onset seizures #Complex partial seizures Suspicion of seizures marked by shakiness and blank staring. Teleneuro was consulted. CT head and CTA negative for any acute findings. Patient has been seizure free over 48hrs. New onset intermittent bilateral tremors noted. Patient denied any dizziness, headache, nausea, vomiting. New onset of seizures could be because patient stopped taking Depakote, is on 250 at home, takes Depakote for bipolar disorder Plan: -Neurologist Dr Brush consulted; suspected complex partial seizures and recommended doubling valproate dose in place of Keppra due to better side effect profile. -Valproate 750mg twice daily -Seizure precautions #Euosmolar hyponatremia Possible component of dehydration leading to hyponatremia due to poor oral intake. Hyponatremia is likely also contributed to GI losses through colostomy bag. On physical examination, patient had very dry mucous membranes and often does not consume full meals. Sodium 135 today Plan: -Continue IV fluids -Follow-up CMP #E.Coli UTI, improving #History of recurrent UTI Patient initially reported dysuria and cloudy urine with hx of recurrent UTIs. CT A/P 03/31: Fluid collection 5.4 x 4.0 x 2.2 cm in subcutaneous fatty tissue anterior pelvic wall, differentials include abcess and hematoma Repeat Blood culture, negative x2 final. Urine cultures positive for E. coli, pansensitive. Plan: -Completed 1 week course of doxycycline and IV Zosyn from 03/21-04/02) -IV Zosyn (03/21-04/02) ?General Surgeon Dr. Flynn consulted, following recommendations -Continue to monitor CBC #MAKENZIE, stable Differential diagnosis: Prerenal versus possible ischemic ATN Patient might likely have prerenal MAKENZIE in the setting of poor oral intake. Patient has not been consuming 100% of meals. Creatinine down trended from 1.8 to 1.6 today. Plan: -IV fluids -Avoid nephrotoxins -Renally dose medications -Avoid diuretics and NSAIDs -[facility] Dr. Rahman following #Electrolyte imbalances #Hyperkalemia, resolved #Hypomagnesemia Urgent dialysis indicated on admission, patient had temporary catheter placement. Holding dialysis for now because renal function is improving Plan: ? [facility] Dr. Rahman following ? Continue to monitor CMP #History of hypothyroidism Patient has a history of hypothyroidism. She takes levothyroxine at home. Plan ?levothyroxine 137 mcg before breakfast #History of hypertension Chronic, uncontrolled Patient has a longstanding hypertension on both metoprolol and hydralazine. Plan ? Metoprolol tartrate 25mg BID - Hydralazine 10mg Q6HR PRN for SBP >160 #History of depression #History of dementia #History of bipolar disorder #History of anxiety Patient takes valproate for bipolar, home dose 250 mg Plan - donepezil 10mg daily -Valproate 750mg BID #History of asthma Plan ? DuoNebs every 4 hours breathing treatment as needed #Hypochloremia-resolved #Hypocalcemia-resolved #Hyperphosphatemia-resolved #Sepsis, resolved #Acute encephalopathy uremic vs infectious-resolved #Acute kidney injury-resolved #Health Maintenance Disposition: Telemetry DVT prophylaxis: SCDs GI prophylaxis: Protonix Diet: N.p.o. CODE STATUS: Full Patient seen and care discussed with my senior resident, Dr. Sanchez, and my attending physician, Dr. Lara Hinson, PGY-1 Attending Provider Attestation/Addendum 78-year-old female with multiple comorbidities including hypertension, hyperlipidemia, asthma not on home oxygen and cecal mass status post right hemicolectomy and diverting ileostomy on 12/20/2023 who presented to the ER on 03/21/2024 with chief complaint of altered mentation found to have acute uremic encephalopathy and intraoral abdominal abscesses subsequently started on IV antibiotic therapy and subsequently hemodialysis. Was initiated. During course of hospitalization, patient did receive multiple hemodialysis session and plan for reversing the ileostomy. As of now, continue to monitor closely. As for mentation, patient is alert and oriented to name, date of and place and kidney function improving without need for further hemodialysis. Will follow-up with general surgery regarding reversal of ileostomy. Currently, patient is n.p.o. for planned surgical intervention today. I reviewed above note and agree with findings and plans. I have also personally examined the patient with medicine team and went over assessment and plan with medical team including internal grinder and resident physician.
--- NOTE | 2024-04-09 13:43 | EKG_ITS ---
[facility] Test Date: 2024-04-09 Pat Name: DINO MUNSON Department: Room: S261A Gender: Female Purchaser: TIN : 1945 Requested By: Reyna Gonzalez Order Number: [id number] Reading MD: Reyna Gonzalez Measurements Intervals [place] Rate: 76 P: 60 SD: 176 QRS: 47 QRSD: 88 T: 167 QT: 415 QTc: 469 Interpretive Statements SINUS RHYTHM NONSPECIFIC ST & T-WAVE ABNORMALITY Compared to ECG 04/07/2024 08:16:57 Ventricular premature complex(es) no longer present Possible ischemia no longer present T-wave abnormality still present /store/S0/[id number].pdf
[2024-04-09] MEDS: ACETAMINOPHEN IVPB 1,000 MG/100 ML VIAL 250 MG IV ×2 (17:46→23:42)
--- NOTE | 2024-04-09 19:17 | ESPR_ITS ---
Documentation for date of: 04/09/24 Subjective Subjective Interval history: 78 y/o F with PMHx significant for hypothyroidism, hypertension, JACKIE, asthma, depression, dementia, recurrent UTI, and is status post hemicolectomy with ileostomy presents with altered mental status and nausea and vomiting. Patient initially presented to ED with altered mentation and was not able to provide history. Subsequently given 2.5 L of fluids per sepsis protocol and mentation slowly improved. Upon evaluation, patient endorsed 2 to 3 days of nausea and vomiting along with decreased p.o. intake. Also endorses abdominal pain at ileostomy site, decreased ileostomy output, as well as dysuria and cloudy urine but denies fever or chills. Otherwise also denies shortness of breath or chest discomfort. Of note, patient recently discharged on 02/15 for ileostomy leakage/malfunction. CT head unremarkable. CT A/P showed Soft tissue mass in the anterior abdominal wall 2.8 x 2.2 cm and aggregate of small bowel versus abscess in the right lower abdomen poorly defined, at least 4 cm in dimension. Patient recieved IVF, magnesisum, zosyn and rocephin in ED. Labs showed sodium 125, potassium 6.6, BUN 134, Rn Internship 9.3, eGFR 4, Corrected Ca 8.3, phos 10.7, Mg 1.1. Patient has no known history CKD. On exam patient was lethargic but responsive, followed commands, A&Ox3. Appears euvolemic. Nephrology consulted for acute renal failure, plan for emergent dialysis. 04/03/2024 patient currently seen in medical floor. Resting comfortably. Still having significant colostomy losses. CT abdomen with contrast results reviewed. Labs, medications reviewed. Patient feeling much better. Encouraged encourage p.o. fluids. Dialysis catheter was removed. Still leaking around the colostomy site. Surgeon on the case. s/p I&D - abscess. On gentle IV fluids. Creatinine 1.4. Possible surgery this week. Renal giordano no further recommendations. Will follow as needed. 04/09/2024 patient currently seen in telemetry. Resting comfortably. Seems tired. Status post colostomy reversal, repair with wound VAC. Labs, medications reviewed. CBC normal, BUN 56, creatinine 1.6. Calcium 9.5, phosphorus 3.7, magnesium 1.6, alk phos 639. Review of Systems Review of Systems Narrative Review of Systems: CONSTITUTIONAL: Patient denies any fever, chills. Patient feeling tired HEENT: Denies any visual disturbances or hearing problems. CARDIOVASCULAR: Patient denies any chest pain, shortness of breath, swelling in the lower extremities. PULMONARY: Patient denies any shortness of breath, cough. GASTROINTESTINAL: patient complaining of discomfort around the colostomy reversal site GENITOURINARY: Patient denies any urinary symptoms of burning or frequency or hematuria, denies any form in the urine. SKIN: Denies any rash. MUSCULOSKELETAL: Gait imbalance NEUROLOGICAL: Denies any neurological problems of strokes, seizures or confusion. Denies any memory problems. Exam Vital Signs Temp Pulse Resp BP Pulse Ox O2 Del Method O2 Flow Rate 36.1 C 79 9 L 154/75 H 100 Nasal Cannula 2 04/09/24 15:09 04/09/24 16:00 04/09/24 15:09 04/09/24 15:09 04/09/24 15:09 04/09/24 15:09 04/09/24 12:50 Narrative Exam PE: Gen: Well-developed and well-nourished. Elderly frail lady. HEENT: NCAT, PERRLA, EOMI, MMM, anicteric conjunctivae. CVS: normal S1 and S2. RRR. No M/R/G. Resp: Few rhonchi noted Abd: soft, non-tender, non-distended. Status post colon surgery with wound VAC MSK: Good ROM in BUE & BLE. No edema or rash. Neuro strength 4/5 in BUE & BLE. Alert and oriented x3. Objective Labs 04/09/24 05:55 04/09/24 05:55 Labs: Laboratory Results - last 24 hr 04/09/24 04/09/24 05:55 08:13 WBC 10.4 RBC 4.31 Hgb 12.1 Hct 37.3 MCV 87 MCH 28.1 MCHC 32.4 RDW Std Deviation 50.5 H Plt Count 434 D Neut % (Auto) 68 Lymph % (Auto) 20 [place] % (Auto) 7 Eos % (Auto) 1 Baso % (Auto) 1 Neut # (Auto) 7.1 Lymph # (Auto) 2.1 [place] # (Auto) 0.7 Eos # (Auto) 0.1 Baso # (Auto) 0.1 Immature Gran # (Auto) 0.34 H Absolute Nucleated RBC 0.02 H Immature Gran % 3 H Nucleated RBC % 0 PT 23.5 H D INR 2.3 H Sodium 135 L Potassium 4.3 D Chloride 99 Carbon Dioxide 26.0 Anion Gap 10 BUN 56 H Creatinine 1.6 H Estim Creat Clear Calc 24.6 L eGFR 33 L BUN/Creatinine Ratio 35 H Glucose 114 H Calculated Osmolality 286 Calcium 8.9 Corrected Calcium 9.5 Phosphorus 3.7 Magnesium 1.6 Total Bilirubin 0.4 AST 24 ALT 14 Alkaline Phosphatase 639 H D Total Protein 6.4 Albumin 3.3 L Globulin 3.1 Albumin/Globulin Ratio 1.1 L Blood Type O Negative Antibody Screen NEGATIVE Blood Bank Wristband ID Yes Blood Bank Comment FFP Ready ABG Interpretation ABG results: 03/21/24 05:40 ABG pH 7.35 ABG pCO2 41 ABG pO2 121 H ABG HCO3 23 ABG O2 Saturation 99 H ABG Base Excess -3 Assessment & Plan Assessment and plan (1) New onset seizure: Status: Acute Additional Assessment & Plan Additional Plan: 78 y/o F with PMHx significant for hypothyroidism, hypertension, JACKIE, asthma, depression, dementia, recurrent UTI, and is status post hemicolectomy with ileostomy admitted for acute uremic encephalopathy, stage III acute kidney injury, sepsis secondary to UTI versus intra-abdominal abscess. #Acute kidney injury-suspect patient in ischemic ATN Patient received 2 dialysis treatments and started to make good urine. Dialysis was discontinued and catheter removed. Creatinine improved to 1.6, sodium 136.- s/p CT abdomen with IV contrast . Continue with gentle IV hydration. Plan of care discussed with primary team -Avoid nephrotoxins -Renally dose medications -daily labs #Sepsis, secondary to GI/UTI-on antibiotics.. plan of care discussed with primary team, Dr. Flynn-did the reversal of ileostomy with wound VAC #Electrolyte imbalances #Hypothyroidism #Hypertension #Depression #Dementia Management as per primary team.
[2024-04-09] MEDS: METOPROLOL TARTRATE 25 MG TABLET PO (21:28)
[2024-04-09] MEDS: VALPROIC ACID SYRUP 250 MG/5 ML UDC 750 MG PO (21:29)
[2024-04-09] MEDS: DONEPEZIL HCL 5 MG TABLET 10 MG PO (21:29)
[2024-04-09] MEDS: hydrOXYzine HCL 25 MG TABLET PO (23:58)
[2024-04-10] VITALS (10 sets, daily range): BP systolic 109–143; BP diastolic 46–81; PULSE 47–77; RESP 13–98; TEMP 35.9–36.2; O2SAT 93–100; BMI 23.3
[2024-04-10] MEDS: DiphenhydrAMINE INJ 50 MG/ML VIAL 25 MG IV ×2 (03:49→10:25)
[2024-04-10] MEDS: ACETAMINOPHEN IVPB 1,000 MG/100 ML VIAL 250 MG IV ×3 (05:36→18:34)
[2024-04-10] MEDS: LEVOTHYROXINE SODIUM 112 MCG, LEVOTHYROXINE SODIUM 25 MCG 137 MCG PO (05:36)
[2024-04-10 05:57] LABS: Basophils % (Auto) 0 % (0-2.5); Eosinophils % (Auto) 0 % (0-10); Hematocrit 26.8 % (36.0-46.0); Immature Granulocytes % (Auto) 2 % (0-0); Immature Granulocytes Auto 0.39 Thou/mm3 (0.00-0.00); Lymphocytes # (Auto) 2.7 Thou/mm3 (1.0-4.8); Lymphocytes % (Auto) 15 % (10-50); Mean Corpuscular Hemoglobin 28.7 pg (25.0-35.0); Mean Corpuscular Volume 93 fL (80-100); Monocytes # (Auto) 1.2 Thou/mm3 (0.0-0.8); Monocytes % (Auto) 7 % (0-12); Neutrophils # (Auto) 13.3 Thou/mm3 (1.8-7.7); Neutrophils % (Auto) 76 % (37-80); Nucleated Red Blood Cell % 0 /100 WBC (0); Platelet Count 406 Thou/mm3 (140-440); RDW Standard Deviation 56.7 fL (36.4-46.3); Red Blood Count 2.89 Miln/mm3 (4.00-5.20); White Blood Count 17.6 Thou/mm3 (3.6-11.0)
[2024-04-10 06:09] LABS: INR 1.5 (0.9-1.3); Partial Thromboplastin Time 31.3 Seconds (22.0-36.0)
[2024-04-10 06:17] LABS: Hemoglobin 8.3 g/dL (12.0-16.0)
[2024-04-10 06:48] LABS: Alanine Aminotransferase 15 U/L (10-49); Albumin, Serum 3.1 gm/dL (3.4-4.8); Albumin/Globulin Ratio 1.1 (1.2-2.2); Alkaline Phosphatase 428 U/L (46-116); Anion Gap 16 (7-16); Aspartate Amino Transferase 35 U/L (0-34); BUN/Creatinine Ratio 29 Ratio (12-20); Bilirubin,Total 0.4 mg/dL (0.3-1.2); Blood Urea Nitrogen 56 mg/dL (9-23); Calcium 8.7 mg/dL (8.3-10.6); Calcium (Corrected) 9.4 mg/dL (8.5-10.1); Carbon Dioxide 23.1 mMol/L (20.0-31.0); Chloride 100 mMol/L (98-107); Creatinine (Component) 1.9 mg/dL (0.6-1.3); Estimated Creatinine Clearance 20.7 mL/min (>60); Globulin 2.7 gm/dL (2.3-3.5); Glucose 96 mg/dL (74-106); Magnesium 1.6 mg/dL (1.6-2.6); Osmolality,Calculated 293 (275-295); Phosphorous 5.7 mg/dL (2.4-5.1); Potassium 3.6 mMol/L (3.4-5.1); Sodium 139 mMol/L (136-145); Total Protein 5.8 gm/dL (5.7-8.2); eGFR 27 See Note
--- NOTE | 2024-04-10 07:38 | ESPR_ITS ---
<Statement entered by Familia Sanchez MD - 04/10/24 15:52> Patient was seen and examined at bedside. She is day 1 status post ileostomy reversal. Overnight the patient was having an anxiety in which she was given hydroxyzine and Benadryl by the night team. We started the patient on gabapentin 100 mg 3 times daily to help with her anxiety, and we added for ambient at bedtime. Patient reports that she has not passed any gas or bowel movement. She mentions that her pain is controlled at this time. We noticed that her hemoglobin dropped to 8.3 for that reason we repeated hemoglobin and hematocrit in the afternoon. Waiting for the patient to tolerate feeding and has a bowel movement to be discharged After surgery clearance. - Patient's plan and care discussed with my attending, Dr. Lara Sanchez MD Internal Medicine PGY-2 Documentation for date of: 04/10/24 Subjective Subjective Interval history: Examined the today. Overnight events included patient being a bit anxious and having trouble sleeping in which she had taken hydroxyzine x 1 and Benadryl x 1. Patient reports she is doing okay today still complaining of being tired as she was not able to sleep last night. She reports that she takes Ambien 5 mg at home in which she is requesting to start that tonight, is also requesting to get something for anxiety currently. Abdominal pain is okay and tolerable. Has not had a bowel movement has not passed gas and is tolerating clear liquid diet currently. No other complaints at this time Exam Vital Signs Temp Pulse Resp BP Pulse Ox O2 Del Method O2 Flow Rate 97.0 F 59 L 13 136/81 H 100 Nasal Cannula 2 04/10/24 04:00 04/10/24 04:00 04/10/24 04:00 04/10/24 04:00 04/10/24 04:00 04/10/24 04:00 04/10/24 04:00 Narrative Exam GENERAL: Well groomed, in no acute distress HEENT: Dry mucosa. Eyes open, symmetrical, & clear CARDIO: RRR, S1 and S2, without obvious murmurs PULM: No noted coughing/dyspnea. Lungs CTA B/L GI: Abdomen soft, nondistended, non-tender. Wound Vac present s/p exploratory laparotomy SKIN/MSK/EXT: No wounds/rashes/edema/amputations. SCDs noted on extremities bilaterally. NEURO: RULING MACHINE FEEDER grossly intact, AAOx2. PSYCH: Cooperative Objective Labs 04/16/24 04:18 04/16/24 04:18 Labs: Laboratory Results - last 24 hr 04/09/24 04/10/24 08:13 05:09 WBC 17.6 H D RBC 2.89 L Hgb 8.3 L D Hct 26.8 L D MCV 93 MCH 28.7 MCHC 31.0 RDW Std Deviation 56.7 H Plt Count 406 Neut % (Auto) 76 Lymph % (Auto) 15 [place] % (Auto) 7 Eos % (Auto) 0 Baso % (Auto) 0 Neut # (Auto) 13.3 H Lymph # (Auto) 2.7 [place] # (Auto) 1.2 H Eos # (Auto) 0.0 Baso # (Auto) 0.0 Immature Gran # (Auto) 0.39 H Absolute Nucleated RBC 0.00 Immature Gran % 2 H Nucleated RBC % 0 PT 23.5 H D 16.0 H D INR 2.3 H 1.5 H APTT 31.3 Sodium 139 Potassium 3.6 D Chloride 100 Carbon Dioxide 23.1 Anion Gap 16 BUN 56 H Creatinine 1.9 H Estim Creat Clear Calc 20.7 L eGFR 27 L BUN/Creatinine Ratio 29 H Glucose 96 Calculated Osmolality 293 Calcium 8.7 Corrected Calcium 9.4 Phosphorus 5.7 H Magnesium 1.6 Total Bilirubin 0.4 AST 35 H ALT 15 Alkaline Phosphatase 428 H D Total Protein 5.8 Albumin 3.1 L Globulin 2.7 Albumin/Globulin Ratio 1.1 L Blood Type O Negative Antibody Screen NEGATIVE Blood Bank Wristband ID Yes Blood Bank Comment FFP Ready ABG Interpretation ABG results: 03/21/24 05:40 ABG pH 7.35 ABG pCO2 41 ABG pO2 121 H ABG HCO3 23 ABG O2 Saturation 99 H ABG Base Excess -3 Quality Measures Quality Measures VTE prophylaxis and sepsis Current suspected stage: ruled out Possible source: skin/soft tissue Blood cultures ordered: yes Antibiotic ordered: No Advance care planning discussed with:: patient Assessment & Plan Assessment Current Active Medications: Generic Name Dose Route Start Last Admin Trade Name Freq PRN Reason Stop Dose Admin Albuterol/Ipratropium 3 ml 03/21/24 15:51 Albuterol/Ipratropium (Duoneb) Rt Tia 3 Ml Nebu INH 04/20/24 18:59 Q4HRRT PRN Shortness of breath Dextrose 25 ml 03/31/24 09:56 Dextrose 50%-Water Inj 50 Ml Syringe IV 04/30/24 09:55 Q15MIN PRN BG 50-70 responsive npo pt Dextrose 50 ml 03/31/24 09:56 Dextrose 50%-Water Inj 50 Ml Syringe IV 04/30/24 09:55 Q15MIN PRN BG <50 OR BG <70 & pt unresponsive Diphenhydramine HCl 25 mg 04/09/24 00:50 04/10/24 03:49 Diphenhydramine Inj 50 Mg/Ml Vial IV 05/09/24 00:49 25 mg Q6HR PRN Administration ITCHING Donepezil HCl 10 mg 03/21/24 21:00 04/09/24 21:29 Donepezil Hcl 5 Mg Tablet PO 04/20/24 20:59 10 mg HS ASHISH Administration Glucagon 1 mg 03/31/24 09:56 Glucagon Inj 1 Mg Vial IM Q15MIN PRN BG <70, and no IV access Hydralazine HCl 10 mg 03/21/24 15:45 Hydralazine Hcl 10 Mg Tablet PO 04/20/24 17:59 Q6HR PRN SBP>160 Albumin Human 25 gm in 100 mls @ 100 mls/min 03/21/24 10:54 Albuminar-25 Ivpb IV PRN PRN DIALYSIS Sodium Chloride 1,000 mls @ 50 mls/hr 04/09/24 12:34 04/09/24 12:48 Ns IV 04/10/24 12:33 50 mls/hr .Q20H ASHISH Administration Acetaminophen 1,000 mg in 100 mls @ 250 mls/hr 04/09/24 13:16 04/10/24 05:36 Ofirmev Inj IV 04/12/24 06:23 250 mls/hr Q6HR ASHISH Administration Levothyroxine Sodium 112 mcg/ 137 mcg 03/21/24 07:30 04/10/24 05:36 Levothyroxine Sodium 25 mcg PO 04/20/24 07:29 137 mcg ACBR ASHISH Administration Metoprolol Tartrate 25 mg 03/21/24 21:00 04/09/24 21:28 Metoprolol Tartrate 25 Mg Tablet PO 04/20/24 20:59 25 mg BID ASHISH Administration Morphine Sulfate 0 mg 04/09/24 12:22 04/09/24 12:35 Morphine Sulf 1 Mg/Ml Glove Brusher Syringe 30 Ml BRIAR CUTTER 04/14/24 12:21 30 mg PER ORDER ASHISH Administration Protocol Ondansetron HCl 4 mg 03/21/24 06:08 04/08/24 20:53 Ondansetron Inj 2 Mg/Ml Inj 2 Ml IV 04/20/24 06:07 4 mg Q6H PRN Administration NAUSEA OR VOMITING Protocol Pantoprazole Sodium 40 mg 04/07/24 12:00 04/09/24 08:20 Pantoprazole 40 Mg Tablet PO 05/07/24 11:59 Not Given QDAY ASHISH Sodium Chloride 3 ml 03/21/24 08:25 Sodium Chloride Rt Tia 0.9% 3 Ml Nebu INH 04/20/24 08:24 PRN PRN SOLN Valproic Acid 750 mg 04/03/24 09:00 04/09/24 21:29 Valproic Acid Syrup 250 Mg/5 Ml Udc PO 05/03/24 08:59 750 mg BID ASHISH Administration Plan 78-year-old female with a past medical history of hypothyroidism, hypertension, JACKIE, asthma, depression, dementia, recurrent UTI, and is status post hemicolectomy with ileostomy admitted for acute uremic encephalopathy, stage III acute kidney injury admitted sepsis secondary to UTI versus intra-abdominal abscess. Hyperkalemic protocol initiated with 5 units of insulin, D50 and sevelamer as well as albuterol on admission. Patient received emergent dialysis for worsening renal function and electrolyte abnormalities. 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 Flynn. Patient had incision and drainage done 04/[address] Flynn, wound was irrigated with saline and packed, without complications. Due to possible colostomy leakage/malfunction/complications, patient had 3 admissions since the procedure. Colostomy bag continues to leak even with tegaderm changes by nursing. Dr. Flynn made aware. Patient no longer tolerates immodium. Patient has not had bowel movement or passed gas currently Plan: ?Wound VAC ?Clear liquid diet currently, advance as tolerated ?Pain control ?Physical therapy ?Continue wound care ?Continue to monitor CMP ?RD on consult, appreciate recs #MAKENZIE, stable Differential diagnosis: Prerenal versus possible ischemic ATN Patient might likely have prerenal MAKENZIE in the setting of poor oral intake. Patient has not been consuming 100% of meals. Creatinine down trended from 1.9 to 1.6 today. Will be gentle on fluids as patient is tolerating p.o. Plan: -IV fluids 50 cc/hour -Avoid nephrotoxins -Renally dose medications -Avoid diuretics and NSAIDs -Brazing Machine Operator Helper Dr. Rahman following #Chronic insomnia Symptomatic currently, has not restarted home Ambien Plan: ? Restart home Ambien 5 mg nightly #Electrolyte imbalances #Hyperphosphatemia #Hyperkalemia, resolved #Hypomagnesemia, resolved Urgent dialysis indicated on admission, patient had temporary catheter placement. Holding dialysis for now because renal function is improving Phosphate at 5.7, likely related to MAKENZIE, will hold on treating, should lower once pt advances diet Plan: ? Brazing Machine Operator Helper Dr. Rahman following ? Continue to monitor CMP #Normocytic anemia Hemoglobin has dropped from 11 to 8 status post ex lap, report says blood loss about 100 mL Will further workup blood loss Plan: ?*H&H #Euosmolar hyponatremia, resolved Possible component of dehydration leading to hyponatremia due to poor oral intake. Hyponatremia is likely also contributed to GI losses through colostomy bag. On physical examination, patient had very dry mucous membranes and often does not consume full meals. Sodium 139 today #E.Coli UTI, improving #History of recurrent UTI Patient initially reported dysuria and cloudy urine with hx of recurrent UTIs. CT A/P 03/31: Fluid collection 5.4 x 4.0 x 2.2 cm in subcutaneous fatty tissue anterior pelvic wall, differentials include abcess and hematoma Repeat Blood culture, negative x2 final. Urine cultures positive for E. coli, pansensitive. Plan: -Completed 1 week course of doxycycline and IV Zosyn from 03/21-04/02) -IV Zosyn (03/21-04/02) #New onset seizures #Complex partial seizures Suspicion of seizures marked by shakiness and blank staring. Teleneuro was consulted. CT head and CTA negative for any acute findings. Patient has been seizure free over 48hrs. New onset intermittent bilateral tremors noted. Patient denied any dizziness, headache, nausea, vomiting. New onset of seizures could be because patient stopped taking Depakote, is on 250 at home, takes Depakote for bipolar disorder Plan: -Neurologist Dr Brush consulted; suspected complex partial seizures and recommended doubling valproate dose in place of Keppra due to better side effect profile. -Valproate 750mg twice daily -Seizure precautions #History of hypothyroidism Patient has a history of hypothyroidism. She takes levothyroxine at home. Plan: ?Levothyroxine 137 mcg before breakfast #History of hypertension Chronic, uncontrolled Patient has a longstanding hypertension on both metoprolol and hydralazine. Plan ?Metoprolol tartrate 25mg BID ?Hydralazine 10mg Q6HR PRN for SBP >160 #History of depression #History of dementia #History of bipolar disorder #History of anxiety Patient takes valproate for bipolar, home dose 250 mg Patient experiencing anxiety currently, do not want to overly sedate patient Plan: ?*Gabapentin 100 mg 3 times daily -Donepezil 10mg daily -Valproate 750mg BID #History of asthma Plan: ? DuoNebs every 4 hours breathing treatment as needed #Hypochloremia-resolved #Hypocalcemia-resolved #Hyperphosphatemia-resolved #Sepsis, resolved #Acute encephalopathy uremic vs infectious-resolved #Health Maintenance Disposition: Telemetry DVT prophylaxis: SCDs GI prophylaxis: Protonix Diet: Clear liquid CODE STATUS: Full Patient seen and care discussed with my senior resident, Dr. Sanchez, and my attending physician, Dr. Lara Hinson, PGY-1 Attending Provider Attestation/Addendum 78-year-old female with multiple comorbidities including hypertension, hyperlipidemia, asthma not on home oxygen and cecal mass status post right hemicolectomy and diverting ileostomy on 12/20/2023 who presented to the ER on 03/21/2024 with chief complaint of altered mentation found to have acute uremic encephalopathy and intraoral abdominal abscesses subsequently started on IV antibiotic therapy and subsequently hemodialysis. Was initiated. During course of hospitalization, patient did receive multiple hemodialysis session and plan for reversing the ileostomy. As of now, continue to monitor closely. As for mentation, patient is alert and oriented to name, date of and place and kidney function improving without need for further hemodialysis. Will follow-up with general surgery regarding reversal of ileostomy. Overnight, no further seizure-like activity and patient creatinine improving. Will reach out to general surgery regarding surgical intervention. As of now, patient is alert and oriented to name, date of and place however continues to have high output from colostomy. I reviewed above note and agree with findings and plans. I have also personally examined the patient with medicine team and went over assessment and plan with medical team including r d internship and resident physician.
[2024-04-10] MEDS: POTASSIUM CHL 10 mEq IVPB 10 MEQ/100 ML BAG 100 MEQ IV ×2 (09:05→10:25)
[2024-04-10] MEDS: SODIUM CHLORIDE 0.9% 1000 ML 1,000 ML 65 ML IV (09:05)
[2024-04-10] MEDS: METOPROLOL TARTRATE 25 MG TABLET PO (09:06)
[2024-04-10] MEDS: VALPROIC ACID SYRUP 250 MG/5 ML UDC 750 MG PO ×2 (09:06→21:54)
[2024-04-10] MEDS: PANTOPRAZOLE 40 MG TABLET PO (09:06)
--- NOTE | 2024-04-10 10:18 | PC.SS ---
Update: Patient is post-op day 1.
--- NOTE | 2024-04-10 12:13 | ESPR_ITS ---
Documentation for date of: 04/10/24 Subjective Subjective Interval history: Interval history: 78 y/o F with PMHx significant for hypothyroidism, hypertension, JACKIE, asthma, depression, dementia, recurrent UTI, and is status post hemicolectomy with ileostomy presents with altered mental status and nausea and vomiting. Patient initially presented to ED with altered mentation and was not able to provide history. Subsequently given 2.5 L of fluids per sepsis protocol and mentation slowly improved. Upon evaluation, patient endorsed 2 to 3 days of nausea and vomiting along with decreased p.o. intake. Also endorses abdominal pain at ileostomy site, decreased ileostomy output, as well as dysuria and cloudy urine but denies fever or chills. Otherwise also denies shortness of breath or chest discomfort. Of note, patient recently discharged on 02/15 for ileostomy leakage/malfunction. CT head unremarkable. CT A/P showed Soft tissue mass in the anterior abdominal wall 2.8 x 2.2 cm and aggregate of small bowel versus abscess in the right lower abdomen poorly defined, at least 4 cm in dimension. Patient recieved IVF, magnesisum, zosyn and rocephin in ED. Labs showed sodium 125, potassium 6.6, BUN 134, Classified Copy Control Clerk 9.3, eGFR 4, Corrected Ca 8.3, phos 10.7, Mg 1.1. Patient has no known history CKD. On exam patient was lethargic but responsive, followed commands, A&Ox3. Appears euvolemic. Nephrology consulted for acute renal failure, plan for emergent dialysis. 04/03/2024 patient currently seen in medical floor. Resting comfortably. Still having significant colostomy losses. CT abdomen with contrast results reviewed. Labs, medications reviewed. Patient feeling much better. Encouraged encourage p.o. fluids. Dialysis catheter was removed. Still leaking around the colostomy site. Surgeon on the case. s/p I&D - abscess. On gentle IV fluids. Creatinine 1.4. Possible surgery this week. Renal giordano no further recommendations. Will follow as needed. 04/09/2024 patient currently seen in telemetry. Resting comfortably. Seems tired. Status post colostomy reversal, repair with wound VAC. Labs, medications reviewed. CBC normal, BUN 56, creatinine 1.6. Calcium 9.5, phosphorus 3.7, magnesium 1.6, alk phos 639. 04/10/2024 patient seen in telemetry, eating breakfast, patient is status post Exploratory laparotomy, reversal of ileostomy day 1, labs reviewed WBC 17.6, hemoglobin 8.3, sodium 139, potassium 3.6, creatinine 1.9, GFR 27, BUN 56, phosphorus 5.7, patient will be started on IV fluids sodium chloride 65 cc/h, will continue to monitor renal function in a.m. Exam Vital Signs Temp Pulse Resp BP Pulse Ox O2 Del Method O2 Flow Rate 96.6 F L 67 19 121/71 99 Nasal Cannula 2 04/10/24 08:00 04/10/24 09:06 04/10/24 08:00 04/10/24 09:06 04/10/24 08:00 04/10/24 08:00 04/10/24 08:00 Narrative Exam PE: Gen: Well-developed and well-nourished. Elderly frail lady. HEENT: NCAT, PERRLA, EOMI, MMM, anicteric conjunctivae. CVS: normal S1 and S2. RRR. No M/R/G. 1+ edema noted bilateral Resp: Few rhonchi noted Abd: soft, non-tender, non-distended. Status post colon surgery with wound VAC MSK: Good ROM in BUE & BLE. No edema or rash. Neuro strength 4/5 in BUE & BLE. Alert and oriented x3. Objective Labs 04/11/24 04:53 04/11/24 03:15 Labs: Laboratory Results - last 24 hr 04/10/24 05:09 WBC 17.6 H D RBC 2.89 L Hgb 8.3 L D Hct 26.8 L D MCV 93 MCH 28.7 MCHC 31.0 RDW Std Deviation 56.7 H Plt Count 406 Neut % (Auto) 76 Lymph % (Auto) 15 [place] % (Auto) 7 Eos % (Auto) 0 Baso % (Auto) 0 Neut # (Auto) 13.3 H Lymph # (Auto) 2.7 [place] # (Auto) 1.2 H Eos # (Auto) 0.0 Baso # (Auto) 0.0 Immature Gran # (Auto) 0.39 H Absolute Nucleated RBC 0.00 Immature Gran % 2 H Nucleated RBC % 0 PT 16.0 H D INR 1.5 H APTT 31.3 Sodium 139 Potassium 3.6 D Chloride 100 Carbon Dioxide 23.1 Anion Gap 16 BUN 56 H Creatinine 1.9 H Estim Creat Clear Calc 20.7 L eGFR 27 L BUN/Creatinine Ratio 29 H Glucose 96 Calculated Osmolality 293 Calcium 8.7 Corrected Calcium 9.4 Phosphorus 5.7 H Magnesium 1.6 Total Bilirubin 0.4 AST 35 H ALT 15 Alkaline Phosphatase 428 H D Total Protein 5.8 Albumin 3.1 L Globulin 2.7 Albumin/Globulin Ratio 1.1 L ABG Interpretation ABG results: 03/21/24 05:40 ABG pH 7.35 ABG pCO2 41 ABG pO2 121 H ABG HCO3 23 ABG O2 Saturation 99 H ABG Base Excess -3 Quality Measures Quality Measures VTE prophylaxis and sepsis Current suspected stage: ruled out Possible source: skin/soft tissue Blood cultures ordered: yes Antibiotic ordered: No Advance care planning discussed with:: patient Assessment & Plan Assessment Current Active Medications: Generic Name Dose Route Start Last Admin Trade Name Freq PRN Reason Stop Dose Admin Albuterol/Ipratropium 3 ml 03/21/24 15:51 Albuterol/Ipratropium (Duoneb) Rt Tia 3 Ml Nebu INH 04/20/24 18:59 Q4HRRT PRN Shortness of breath Dextrose 25 ml 03/31/24 09:56 Dextrose 50%-Water Inj 50 Ml Syringe IV 04/30/24 09:55 Q15MIN PRN BG 50-70 responsive npo pt Dextrose 50 ml 03/31/24 09:56 Dextrose 50%-Water Inj 50 Ml Syringe IV 04/30/24 09:55 Q15MIN PRN BG <50 OR BG <70 & pt unresponsive Diphenhydramine HCl 25 mg 04/09/24 00:50 04/10/24 10:25 Diphenhydramine Inj 50 Mg/Ml Vial IV 05/09/24 00:49 25 mg Q6HR PRN Administration ITCHING Donepezil HCl 10 mg 03/21/24 21:00 04/09/24 21:29 Donepezil Hcl 5 Mg Tablet PO 04/20/24 20:59 10 mg HS ASHISH Administration Gabapentin 100 mg 04/10/24 14:00 Gabapentin 100 Mg Capsule PO 05/10/24 13:59 TID ASHISH Glucagon 1 mg 03/31/24 09:56 Glucagon Inj 1 Mg Vial IM Q15MIN PRN BG <70, and no IV access Hydralazine HCl 10 mg 03/21/24 15:45 Hydralazine Hcl 10 Mg Tablet PO 04/20/24 17:59 Q6HR PRN SBP>160 Albumin Human 25 gm in 100 mls @ 100 mls/min 03/21/24 10:54 Albuminar-25 Ivpb IV PRN PRN DIALYSIS Acetaminophen 1,000 mg in 100 mls @ 250 mls/hr 04/09/24 13:16 04/10/24 09:03 Ofirmev Inj IV 04/12/24 06:23 Infused Q6HR ASHISH Infusion Sodium Chloride 1,000 mls @ 65 mls/hr 04/10/24 08:09 04/10/24 09:05 Ns IV 04/10/24 23:32 65 mls/hr .[id number] ASHISH Administration Levothyroxine Sodium 112 mcg/ 137 mcg 03/21/24 07:30 04/10/24 05:36 Levothyroxine Sodium 25 mcg PO 04/20/24 07:29 137 mcg ACBR ASHISH Administration Metoprolol Tartrate 25 mg 03/21/24 21:00 04/10/24 09:06 Metoprolol Tartrate 25 Mg Tablet PO 04/20/24 20:59 25 mg BID ASHISH Administration Morphine Sulfate 0 mg 04/09/24 12:22 04/09/24 12:35 Morphine Sulf 1 Mg/Ml Web Marketing Strategist Syringe 30 Ml GARAGE DOOR TECHNICIAN 04/14/24 12:21 30 mg PER ORDER ASHISH Administration Protocol Ondansetron HCl 4 mg 03/21/24 06:08 04/08/24 20:53 Ondansetron Inj 2 Mg/Ml Inj 2 Ml IV 04/20/24 06:07 4 mg Q6H PRN Administration NAUSEA OR VOMITING Protocol Pantoprazole Sodium 40 mg 04/07/24 12:00 04/10/24 09:06 Pantoprazole 40 Mg Tablet PO 05/07/24 11:59 40 mg QDAY ASHISH Administration Sodium Chloride 3 ml 03/21/24 08:25 Sodium Chloride Rt Tia 0.9% 3 Ml Nebu INH 04/20/24 08:24 PRN PRN SOLN Valproic Acid 750 mg 04/03/24 09:00 04/10/24 09:06 Valproic Acid Syrup 250 Mg/5 Ml Udc PO 05/03/24 08:59 750 mg BID ASHISH Administration Plan 78 y/o F with PMHx significant for hypothyroidism, hypertension, JACKIE, asthma, depression, dementia, recurrent UTI, and is status post hemicolectomy with ileostomy admitted for acute uremic encephalopathy, stage III acute kidney injury, sepsis secondary to UTI versus intra-abdominal abscess. #Acute kidney injury-suspect patient in ischemic ATN Patient received 2 dialysis treatments and started to make good urine. Dialysis was discontinued and catheter removed. Creatinine improved to 1.6, sodium 136. -s/p CT abdomen with IV contrast . Continue with gentle IV hydration. Patient is status post reversal of ileostomy day 1, patient has MAKENZIE with BUN 56, creatinine 1.9 and GFR 27 Estimated blood loss during procedure 100 cc, MAKENZIE likely prerenal Plan of care discussed with primary team -Patient will be started on gentle IV hydration NS 65 cc/h -Avoid nephrotoxins -Renally dose medications -daily labs #Sepsis, secondary to GI/UTI-on antibiotics.. plan of care discussed with primary team, Dr. Flynn-did the reversal of ileostomy with wound VAC #Electrolyte imbalances #Hypothyroidism #Hypertension #Depression #Dementia Management as per primary team. Case discussed with Attending physician Dr. Lacey Shirley PGY1 Attending Provider Attestation/Addendum Patient seen and examined with resident physician Dr. Shirley. Note reviewed, agree with findings and recommendations. Patient clinically seems to be volume depleted. Continue with gentle IV fluids. Encourage p.o. fluids. Status post ileostomy reversal and has wound VAC. Discharge planning per primary team.
--- NOTE | 2024-04-10 13:02 | PD.SURPROG ---
Documentation for date of: 04/10/24 Subjective Subjective Brief History: 78F with HTN, CHF, hypothyroidism who underwent right hemicolectomy with diverting ileostomy for fecal contamination 12/19, admitted in past for MAKENZIE here now with AMS and acute renal failure, planned for emergent HD. Workup shows leukocytosis and possible abdominal fluid collection PMH: HTN, CHF, hypothyroidism, bipolar disorder PSHx: Tonsillectomy, appendectomy, cholecystectomy, hysterectomy, R hemicolectomy with diverting ileostomy 12/19 for benign necrotic mass Meds: no anticoagulation Allergies: haldol, naproxen, fluoxetine Social hx: Nonsmoker Narrative: Pain controlled, mild nausea, afebrile with normal HR, minimal wound vac output Exam Vital Signs Temp Pulse Resp BP Pulse Ox O2 Del Method O2 Flow Rate 96.8 F 61 14 109/46 L 98 Nasal Cannula 2 04/10/24 12:00 04/10/24 12:00 04/10/24 12:00 04/10/24 12:00 04/10/24 12:00 04/10/24 12:00 04/10/24 12:00 Constitutional Constitutional: no acute distress Routine Respiratory Exam Respiratory: Present no resp distress Routine Abdominal Exam Abdominal: Present soft and wound (wound vac in place to midline wound with appropriate suction, stable erythema of periincisional skin); Absent tenderness or distended Results Results: Laboratory Laboratory results: results reviewed Assessment & Plan Plan 78F with HTN, CHF, hypothyroidism who underwent right hemicolectomy with diverting ileostomy for fecal contamination 12/19, admitted with acute renal failure, improved from that standpoint, now s/p ileostomy reversal 04/09, gradually recovering Pain control prn CLD as tolerated, awaiting return of bowel function Physical therapy Procedures Procedures Exploratory laparotomy, reversal of ileostomy
--- NOTE | 2024-04-10 13:30 | PC.SS ---
CLEAN UP WORKER contacted [facility]. staff Deepika to obtain update on referral. [facility]. staff requesting submittal of updated information. Updated clinicals submitted to [facility].
--- NOTE | 2024-04-10 14:16 | PC.SS ---
Rounding Note: Patient pending surgery clearance.
[2024-04-10] MEDS: GABAPENTIN 100 MG CAPSULE PO ×2 (15:14→21:53)
[2024-04-10 15:40] LABS: Hematocrit 26.4 % (36.0-46.0)
[2024-04-10 15:49] LABS: Hemoglobin 8.4 g/dL (12.0-16.0)
--- NOTE | 2024-04-10 21:50 | PC.NURSE ---
Notified MD Guerrero at approximately 2150 that pt is bradycardia as low as 45. is aware and said I can hold the metoprolol dose for tonight
[2024-04-10] MEDS: ZOLPIDEM 5 MG TABLET PO (21:53)
[2024-04-10] MEDS: DONEPEZIL HCL 5 MG TABLET 10 MG PO (21:53)
[2024-04-11] VITALS (96 sets, daily range): BP systolic 84–144; BP diastolic 41–94; PULSE 53–91; RESP 8–100; TEMP 35.5–36.6; O2SAT 92–100
[2024-04-11] MEDS: ACETAMINOPHEN IVPB 1,000 MG/100 ML VIAL 250 MG IV (00:04)
--- NOTE | 2024-04-11 00:40 | PC.NURSE ---
MD Guerrero and ICU MD notified that pt's urine ouput has been less the entire day. NS x1 at 65 mL/hr has been ordered
[2024-04-11] MEDS: SODIUM CHLORIDE 0.9% 1000 ML 1,000 ML 65 ML IV (00:46)
--- NOTE | 2024-04-11 02:11 | PC.NURSE ---
CLOCKMAKER APPRENTICE called to room 261 due to pt change in condition. Pt became bradycardic in the 45-47, hypotensive with map of 57, BS is 85, more lethargic.
--- NOTE | 2024-04-11 02:13 | EKG_ITS ---
[facility] Test Date: 2024-04-11 Pat Name: DINO MUNSON Department: Room: 61A Gender: Female Associate Embalmer/Funeral Director: FRANCHESKA : 1945 Requested By: Jeanette Casey Order Number: [id number] Reading MD: Jeanette Casey Measurements Intervals [place] Rate: 56 P: 72 [place]: 212 QRS: 45 QRSD: 101 T: 146 QT: 472 QTc: 456 Interpretive Statements SINUS BRADYCARDIA WITH FIRST DEGREE AV BLOCK WITH OCCASIONAL SUPRAVENTRICULAR PREMATURE COMPLEXES ST DEVIATION AND MODERATE T-WAVE ABNORMALITY, CONSIDER ANTEROLATERAL ISCHEMIA WARNING: DATA QUALITY MAY AFFECT INTERPRETATION Compared to ECG 04/09/2024 13:59:30 First degree AV block now present Possible ischemia now present Sinus rhythm no longer present T-wave abnormality still present /store/S0/[id number].pdf
[2024-04-11] MEDS: DEXTROSE 50%-WATER INJ 50 ML SYRINGE IV (02:15)
[2024-04-11] MEDS: SODIUM CHLORIDE 0.9% 500 ML 500 ML 999 ML IV ×2 (02:57→03:30)
[2024-04-11] MEDS: ATROPINE SULF INJ 0.1 MG/ML SYR 10 ML 1 MG IV (03:00)
[2024-04-11] MEDS: Norepinephrine/NS 16mg/250ml 16 MG/250 ML BAG 2.977 MG IV (03:30)
--- NOTE | 2024-04-11 04:05 | XR_ITS ---
Examination: AP chest single view Technique one AP portable semiupright chest single view Exam date and time: April 11, 2024 0441 hrs. Comparison March 27, 2024 Indications: Post central line placement Findings: Right internal jugular central line tip right atrium Poor inspiration Moderate vascular congestion No pneumothorax Impression: Poor inspiratory effort chest x-ray Right internal jugular central line tip right atrium with no pneumothorax
--- NOTE | 2024-04-11 04:12 | ESCONSULT_ITS ---
HPI Data of Consult Requesting Physician: Brigette Bermudez MD Admitting Provider: Brennon Frazier MD Attending Provider: Brigette Bermudez MD Primary Care Provider: Jorge Herndon MD Consult Narrative Reason for consult: lethargic and hypotensive History of present illness: Ms. Shell is a 78-year-old female with a past medical history significant for hypothyroidism, hypertension, JACKIE, asthma, depression, bipolar disorder, dementia, recurrent UTI, previous right hemicolectomy withdiverting ileostomy and later recent reversal of ileostomy on 04/09/2024 presented initially with altered mental status and nausea and vomiting. Patient was admitted for acute uremic encephalopathy and MAKENZIE as well as sepsis secondary to UTI versus intra- abdominal abscess as seen on CT imaging. Due to worsening MAKENZIE, with creatinine to 9.3, nephrology was consulted and suspected ischemic ATN and was started on emergent dialysis. Patient blood cultures were negative and urine culture came back positive for E. coli pansensitive and switched from IV Zosyn to IV Ceftriaxone. IV Metronidazole was added for anaerobic coverage for intra- abdominal abscess. Later, patient was started back on Zoysn and Doxycyline. On 03/26/24, COCOA MILL OPERATOR was called for bilateral jerking of arms with blank stare for 2 minutes followed by left-sided weakness. Initially given Keppra, but later discontinued and increased home Valproic acid. Patient also had an I&D done 04/01/24 for subcutaneous abdominal wall abscess. Finally, after Cr improved, patient had reversal of ileostomy on 04/09/2024 and placed on Morphine SALES PLANNING ANALYST pump. Patient had 2 rapid responses early this mornin) symptomatic bradycardia and 2) hypotension most likely 2/2 septic shock vs hemorrhagic shock In summary, patient given D50 amp, warm blankets and bear hugger for low temperature (94.7F rectal, 93F axillary, 95F temporal) and 2 500cc NS boluses for low MAP, and 1mg Atropine for her bradycardia. However, patient's MAP unable to sustain, and ICU was consulted for further management of undifferentiated shock vs symptomatic bradycardia. PMHx: Hypothyroidism, hypertension, JACKIE, asthma, depression, dementia, recurrent UTI Medications: Patient cannot recall SHx: Denies cigarettes, alcohol, illicit drug use PSHx: Right hemicolectomy, diverting ileostomy, hysterectomy cc:: cc: Brigette Bermudez MD Review of Systems Review of Systems Systems Reviewed: All systems reviewed, normal except as documented Exam Vital Signs Temp Pulse Resp BP Pulse Ox O2 Del Method O2 Flow Rate 97.0 F 59 L 12 102/47 L 99 Nasal Cannula 1 04/11/24 00:00 04/11/24 00:00 04/11/24 00:00 04/11/24 00:00 04/11/24 00:00 04/10/24 20:00 04/10/24 22:32 Narrative Exam Gen: Well-developed and cachectic. Elderly frail lady who is lethargic. Able to follow commands. HEENT: NCAT, PERRLA, EOMI, MMM, anicteric conjunctivae. CVS: bradycardic, normal S1 and S2. No M/R/G. 1+ edema noted bilateral Resp: Few rhonchi noted Abd: soft, non-tender, non-distended. Status post colon surgery with wound VAC MSK: Good ROM in BUE & BLE. No edema or rash. Neuro: strength 4/5 in BUE & BLE. Alert and oriented x3. Arousable to voice and pain. Results Labs 04/11/24 08:23 04/11/24 04:53 Labs: Short CBC 04/10/24 04/10/24 Range/Units 05:09 15:11 WBC 17.6 H D (3.6-11.0) Thou/mm3 Hgb 8.3 L D 8.4 L (12.0-16.0) g/dL Hct 26.8 L D 26.4 L (36.0-46.0) % Plt Count 406 (140-440) Thou/mm3 BMP 04/10/24 05:09 Sodium 139 Potassium 3.6 D Chloride 100 Carbon Dioxide 23.1 BUN 56 H Creatinine 1.9 H Glucose 96 Calcium 8.7 Liver Function 04/10/24 Range/Units 05:09 Total Bilirubin 0.4 (0.3-1.2) mg/dL AST 35 H (0-34) U/L ALT 15 (10-49) U/L Alkaline Phosphatase 428 H D (46-116) U/L Albumin 3.1 L (3.4-4.8) gm/dL ABG Interpretation ABG results: 03/21/24 05:40 ABG pH 7.35 ABG pCO2 41 ABG pO2 121 H ABG HCO3 23 ABG O2 Saturation 99 H ABG Base Excess -3 Quality Measures Quality Measures VTE prophylaxis and sepsis Current suspected stage: septic shock (LA >4 and/or hypotension) Sepsis reassessment completed at (date): 04/11/24 Sepsis reassessment completed at (time): 02:45 Possible source: skin/soft tissue Blood cultures ordered: yes Antibiotic ordered: Yes Advance care planning discussed with:: patient Medications Home Medications and Allergies Home Medications ?Medication ?Instructions ?Recorded ?Confirmed ?Type aspirin 81 mg tablet,delayed 81 mg PO QDAY 11/13/22 03/06/24 History release loratadine 10 mg tablet 10 mg PO QDAY 11/13/22 03/06/24 History divalproex 250 mg tablet,delayed 250 mg PO HS 12/18/23 03/06/24 History release (Depakote) donepezil 10 mg tablet 10 mg PO HS 12/18/23 04/05/24 History ferrous sulfate 325 mg (65 mg 325 mg PO BID 12/18/23 03/06/24 History iron) tablet (FeroSul) memantine 10 mg tablet 10 mg PO BID 12/18/23 03/26/24 History montelukast 10 mg tablet 10 mg PO HS 12/18/23 03/06/24 History multivitamin 1 tab PO QDAY 12/18/23 03/06/24 History nortriptyline 10 mg capsule 10 mg PO HS 12/18/23 03/06/24 History pantoprazole 40 mg tablet,delayed 40 mg PO QDAY 01/19/24 03/06/24 History release bisacodyl 10 mg rectal suppository 10 mg MA Q72H PRN Constipation 01/24/24 03/06/24 History (Dulcolax (bisacodyl)) calcium carbonate 500 mg PO Q6HR PRN Acid Reflux 01/24/24 03/06/24 History lidocaine 5 % topical cream 1 applic topical Q12HR PRN Pain 01/24/24 03/06/24 History magnesium hydroxide 400 mg/5 mL 30 ml PO Q72H PRN Constipation 01/24/24 03/06/24 History oral suspension (Milk of Magnesia) ondansetron HCl 8 mg tablet 8 mg PO Q6HR PRN Nausea And 01/24/24 03/06/24 History Vomiting zolpidem 5 mg tablet (Ambien) 5 mg PO HS 01/24/24 03/26/24 History ascorbic acid (vitamin C) 500 mg 500 mg PO BID 02/15/24 03/06/24 History tablet (Vitamin C) levothyroxine 137 mcg tablet 137 mcg PO QDAY 03/26/24 03/26/24 History metoprolol tartrate 25 mg tablet 25 mg PO BID 03/26/24 03/26/24 History atorvastatin 10 mg tablet 10 mg PO QPM 04/05/24 04/05/24 History valproic acid (as sodium salt) 250 500 mg PO HS 04/05/24 04/05/24 History mg/5 mL oral solution Allergies Allergy/AdvReac Type Severity Reaction Status Date / Time haloperidol Allergy Severe Confusion Verified 03/06/24 13:18 naproxen Allergy Intermediate HIVES Verified 03/06/24 13:18 fluoxetine Allergy Unknown ANXIETY Verified 03/06/24 13:18 Visit Medications Albuterol/Ipratropium (Albuterol/Ipratropium (Duoneb) Rt Tia 3 Ml Nebu) 3 ml INH Q4HRRT PRN PRN Reason: Shortness of breath Stop: 04/20/24 18:59 Dextrose (Dextrose 50%-Water Inj 50 Ml Syringe) 25 ml IV Q15MIN PRN PRN Reason: BG 50-70 responsive npo pt Stop: 04/30/24 09:55 Dextrose (Dextrose 50%-Water Inj 50 Ml Syringe) 50 ml IV Q15MIN PRN PRN Reason: BG <50 OR BG <70 & pt unresponsive Stop: 04/30/24 09:55 Last Admin: 04/11/24 02:15 Dose: 50 ml Diphenhydramine HCl (Diphenhydramine Inj 50 Mg/Ml Vial) 25 mg IV Q6HR PRN PRN Reason: ITCHING Stop: 05/09/24 00:49 Last Admin: 04/10/24 10:25 Dose: 25 mg Donepezil HCl (Donepezil Hcl 5 Mg Tablet) 10 mg PO HS [facility] Stop: 04/20/24 20:59 Last Admin: 04/10/24 21:53 Dose: 10 mg Gabapentin (Gabapentin 100 Mg Capsule) 100 mg PO TID [facility] Stop: 05/10/24 13:59 Last Admin: 04/10/24 21:53 Dose: 100 mg Glucagon (Glucagon Inj 1 Mg Vial) 1 mg IM Q15MIN PRN PRN Reason: BG <70, and no IV access Hydralazine HCl (Hydralazine Hcl 10 Mg Tablet) 10 mg PO Q6HR PRN PRN Reason: SBP>160 Stop: 04/20/24 17:59 Albumin Human (Albuminar-25 Ivpb) 25 gm in 100 mls @ 100 mls/min IV PRN PRN PRN Reason: DIALYSIS Acetaminophen (Ofirmev Inj) 1,000 mg in 100 mls @ 250 mls/hr IV Q6HR [facility] Stop: 04/12/24 06:23 Last Admin: 04/11/24 00:04 Dose: 250 mls/hr Sodium Chloride (Ns) 1,000 mls @ 65 mls/hr IV .[id number] [facility] Stop: 04/11/24 16:08 Last Admin: 04/11/24 00:46 Dose: 65 mls/hr Levothyroxine Sodium 112 mcg/ (Levothyroxine Sodium 25 mcg) 137 mcg PO ACBR [facility] Stop: 04/20/24 07:29 Last Admin: 04/10/24 05:36 Dose: 137 mcg Metoprolol Tartrate (Metoprolol Tartrate 25 Mg Tablet) 25 mg PO BID [facility] Stop: 04/20/24 20:59 Last Admin: 04/10/24 21:50 Dose: Not Given Morphine Sulfate (Morphine Sulf 1 Mg/Ml Hydrator Operator Syringe 30 Ml) 0 mg SALES PLANNING ANALYST PER ORDER [facility]; Protocol Stop: 04/14/24 12:21 Last Admin: 04/09/24 12:35 Dose: 30 mg Ondansetron HCl (Ondansetron Inj 2 Mg/Ml Inj 2 Ml) 4 mg IV Q6H PRN; Protocol PRN Reason: NAUSEA OR VOMITING Stop: 04/20/24 06:07 Last Admin: 04/08/24 20:53 Dose: 4 mg Pantoprazole Sodium (Pantoprazole 40 Mg Tablet) 40 mg PO QDAY [facility] Stop: 05/07/24 11:59 Last Admin: 04/10/24 09:06 Dose: 40 mg Sodium Chloride (Sodium Chloride Rt Tia 0.9% 3 Ml Nebu) 3 ml INH PRN PRN PRN Reason: SOLN Stop: 12/12/24 08:24 Valproic Acid (Valproic Acid Syrup 250 Mg/5 Ml Udc) 750 mg PO BID [facility] Stop: 05/03/24 08:59 Last Admin: 04/10/24 21:54 Dose: 750 mg Zolpidem Tartrate (Zolpidem 5 Mg Tablet) 5 mg PO HS [facility] Stop: 05/10/24 20:59 Last Admin: 04/10/24 21:53 Dose: 5 mg Discontinued Medications Acetaminophen (Acetaminophen 325 Mg Tablet) 650 mg PO Q6H PRN PRN Reason: Fever >101.5 Stop: 04/20/24 05:18 Hydrocodone Bitart/Acetaminophen (Hydrocodone/Apap 5/325 Tablet) 1 tab PO X1 ONE Stop: 03/31/24 08:32 Last Admin: 03/31/24 09:41 Dose: 1 tab Hydrocodone Bitart/Acetaminophen (Hydrocodone/Apap 5/325 Tablet) 1 tab PO X1 ONE Stop: 04/07/24 23:59 Last Admin: 04/08/24 00:06 Dose: 1 tab Hydrocodone Bitart/Acetaminophen (Hydrocodone/Apap 5/325 Tablet) 1 tab PO Q6HR PRN PRN Reason: PAIN SCALE 4-10(Mod-Sev Stop: 04/13/24 07:20 Last Admin: 04/09/24 05:36 Dose: 1 tab Albuterol (Albuterol Rt 2.5 Mg/0.5 Ml Nebu) 2.5 mg INH X1 ONE Stop: 03/21/24 08:26 Last Admin: 03/21/24 08:39 Dose: 2.5 mg Dextrose (Dextrose 50%-Water Inj 50 Ml Syringe) 50 ml IV X1 ONE Stop: 03/21/24 08:23 Last Admin: 03/21/24 10:14 Dose: 50 ml Doxycycline Hyclate (Doxycycline 100 Mg Tablet) 100 mg PO BID [facility] Stop: 04/08/24 09:29 Last Admin: 04/08/24 08:19 Dose: 100 mg Fentanyl Citrate (Fentanyl Cit Inj 50 Mcg/Ml Amp 2ml) 25 mcg IVP X1 ONE Stop: 03/21/24 14:46 Last Admin: 03/21/24 14:56 Dose: 25 mcg Fentanyl Citrate (Fentanyl Cit Inj 50 Mcg/Ml Amp 2ml) 25 mcg IV Q5M PRN PRN Reason: PAIN SCALE 4-10(Mod-Sev Stop: 04/09/24 13:30 Heparin Sodium (Beef Lung) (Heparin Sod Lock Syr 100 Unit/Ml) 500 unit STFIELD X1 ONE Stop: 03/21/24 14:46 Last Admin: 03/21/24 14:55 Dose: 500 unit Heparin Sodium (Porcine) (Heparin Sod Inj 5000 Unit/Ml Vial) 5,000 unit SC Q8HR [facility] Stop: 04/04/24 05:59 Last Admin: 03/22/24 05:52 Dose: 5,000 unit Heparin Sodium (Porcine) (Heparin Sod Inj 1000 Unit/Ml Vial) 3,700 unit INDWELLCAT X1 ONE Stop: 03/21/24 14:46 Last Admin: 03/21/24 15:05 Dose: 3,700 unit Heparin Sodium (Porcine) (Heparin Sod Inj 1000 Unit/Ml Vial 10 Ml) 3,700 unit INDWELLCAT PRN PRN PRN Reason: DIALYSIS Stop: 04/04/24 17:42 Last Admin: 03/21/24 20:09 Dose: 3,700 unit Heparin Sodium (Porcine) (Heparin Sod Inj 5000 Unit/Ml Vial) 5,000 unit SC Q12HR [facility] Stop: 04/05/24 17:29 Last Admin: 04/05/24 08:09 Dose: 5,000 unit Hydralazine HCl (Hydralazine Inj 20 Mg/Ml Vial) 5 mg IV Q20M PRN PRN Reason: SEE COMMENTS Stop: 04/09/24 13:30 Hydromorphone HCl (Hydromorphone Inj 2 Mg/Ml Vial) 0.25 mg IVP X1 ONE Stop: 04/08/24 04:06 Last Admin: 04/08/24 04:15 Dose: 0.25 mg Hydroxyzine HCl (Hydroxyzine Hcl 25 Mg Tablet) 25 mg PO X1 ONE Stop: 04/09/24 23:41 Last Admin: 04/09/24 23:58 Dose: 25 mg Sodium Chloride (Ns) 1,000 mls @ 999 mls/hr IV .Q1H1M ONE Stop: 03/21/24 02:15 Last Infusion: 03/21/24 02:19 Dose: Infused Sodium Chloride (Ns) 1,000 mls @ 999 mls/hr IV .Q1H1M ONE Stop: 03/21/24 03:08 Last Infusion: 03/21/24 03:24 Dose: Infused Ceftriaxone Sodium/Dextrose (Rocephin/D5w 1gm Iv Premix) 50 mls @ 100 mls/hr IV X1 ONE Stop: 03/21/24 04:23 Last Infusion: 03/21/24 05:39 Dose: Infused Sodium Chloride (Ns) 500 mls @ 999 mls/hr IV .Q31M ONE Stop: 03/21/24 05:22 Last Infusion: 03/21/24 05:39 Dose: Infused Magnesium Sulfate (Magnesium Sulfate Ivpb) 2 gm in 50 mls @ 25 mls/hr IV X1 ONE Stop: 03/21/24 07:17 Last Infusion: 03/21/24 07:37 Dose: Infused Sodium Chloride (Ns) 1,000 mls @ 75 mls/hr IV .[id number] [facility] Stop: 03/21/24 18:49 Last Admin: 03/21/24 05:37 Dose: 75 mls/hr Piperacillin/Tazobactam/Dextrose (Zosyn) 50 mls @ 12.5 mls/hr IV Q12HR [facility]; Protocol Stop: 03/28/24 20:59 Last Admin: 03/22/24 09:20 Dose: 12.5 mls/hr Piperacillin/Tazobactam/Dextrose (Zosyn) 2.25 gm in 50 mls @ 100 mls/hr IV X1 ONE Stop: 03/21/24 05:59 Last Admin: 03/21/24 05:59 Dose: Not Given Piperacillin Sod/Tazobactam (Sod 2.25 gm/ Sodium Chloride) 50 mls @ 100 mls/hr IV X1 ONE Stop: 03/21/24 06:09 Last Infusion: 03/21/24 06:20 Dose: Infused Magnesium Sulfate (Magnesium Sulfate Ivpb) 4 gm in 50 mls @ 12.5 mls/hr IV X1 ONE Stop: 03/21/24 12:27 Last Infusion: 03/21/24 14:25 Dose: Infused Ceftriaxone Sodium/Dextrose (Rocephin/D5w 1gm Iv Premix) 50 mls @ 100 mls/hr IV QDAY [facility] Stop: 03/29/24 18:51 Last Admin: 03/27/24 11:23 Dose: 100 mls/hr Metronidazole (Flagyl 500 Mg Iv) 500 mg in 100 mls @ 100 mls/hr IV Q8HR [facility] Stop: 03/30/24 08:59 Last Admin: 03/26/24 14:12 Dose: 100 mls/hr Sodium Chloride (Ns) 1,000 mls @ 70 mls/hr IV .[id number] ONE Stop: 03/23/24 23:37 Last Admin: 03/23/24 10:31 Dose: 70 mls/hr Sodium Chloride (Ns) 1,000 mls @ 70 mls/hr IV .[id number] ONE Stop: 03/24/24 22:54 Last Admin: 03/24/24 09:31 Dose: 70 mls/hr Magnesium Sulfate (Magnesium Sulfate Ivpb) 2 gm in 50 mls @ 25 mls/hr IV X1 ONE Stop: 03/24/24 11:04 Last Admin: 03/24/24 09:31 Dose: 25 mls/hr Magnesium Sulfate (Magnesium Sulfate Ivpb) 4 gm in 50 mls @ 12.5 mls/hr IV X1 ONE Stop: 03/26/24 12:26 Last Admin: 03/26/24 11:12 Dose: 12.5 mls/hr Lactated Ringer's (Lactated Ringers) 1,000 mls @ 999 mls/hr IV .Q1H1M ONE Stop: 03/27/24 17:42 Last Admin: 03/27/24 16:40 Dose: 999 mls/hr Piperacillin/Tazobactam/Dextrose (Zosyn) 3.375 gm in 50 mls @ 12.5 mls/hr IV Q8HR [facility]; Protocol Stop: 04/04/24 05:59 Last Admin: 03/29/24 05:17 Dose: 12.5 mls/hr Piperacillin/Tazobactam/Dextrose (Zosyn) 3.375 gm in 50 mls @ 100 mls/hr IV X1 ONE Stop: 03/27/24 18:44 Last Admin: 03/27/24 18:34 Dose: 100 mls/hr Sodium Chloride (Ns) 1,000 mls @ 999 mls/hr IV .Q1H1M ONE Stop: 03/27/24 19:39 Last Admin: 03/27/24 19:21 Dose: 999 mls/hr Sodium Chloride (Ns) 1,000 mls @ 75 mls/hr IV .[id number] ONE Stop: 03/28/24 21:05 Last Admin: 03/29/24 07:39 Dose: Not Given Sodium Chloride (Ns 0.45%) 1,000 mls @ 75 mls/hr IV .[id number] ONE Stop: 03/28/24 22:27 Last Admin: 03/28/24 09:53 Dose: 75 mls/hr Sodium Chloride (Ns 0.45%) 1,000 mls @ 100 mls/hr IV .Q10H ONE Stop: 03/28/24 19:07 Last Infusion: 03/28/24 23:55 Dose: Infused Sodium Chloride (Ns 0.45%) 1,000 mls @ 100 mls/hr IV .Q10H ONE Stop: 03/29/24 16:50 Last Admin: 03/29/24 08:02 Dose: 100 mls/hr Magnesium Sulfate (Magnesium Sulfate Ivpb) 4 gm in 50 mls @ 12.5 mls/hr IV X1 ONE Stop: 03/31/24 11:54 Last Admin: 03/31/24 09:41 Dose: 12.5 mls/hr Piperacillin/Tazobactam/Dextrose (Zosyn) 3.375 gm in 50 mls @ 12.5 mls/hr IV Q8HR [facility]; Protocol Stop: 04/07/24 14:29 Last Admin: 04/02/24 05:46 Dose: 12.5 mls/hr Sodium Chloride (Ns) 1,000 mls @ 60 mls/hr IV .[id number] ONE Stop: 04/03/24 02:43 Last Admin: 04/02/24 14:30 Dose: 60 mls/hr Sodium Chloride (Ns) 500 mls @ 999 mls/hr IV .Q31M ONE Stop: 04/03/24 10:31 Last Admin: 04/03/24 10:39 Dose: 999 mls/hr Sodium Chloride (Ns) 1,000 mls @ 50 mls/hr IV .Q20H [facility] Stop: 04/06/24 05:44 Sodium Chloride (Ns) 1,000 mls @ 100 mls/hr IV .Q10H [facility] Stop: 04/05/24 19:45 Last Admin: 04/05/24 12:26 Dose: 100 mls/hr Sodium Chloride (Ns) 500 mls @ 999 mls/hr IV .Q31M ONE Stop: 04/06/24 08:16 Last Admin: 04/06/24 09:07 Dose: 999 mls/hr Sodium Chloride (Ns) 1,000 mls @ 100 mls/hr IV .Q10H ONE Stop: 04/06/24 17:58 Last Admin: 04/06/24 10:33 Dose: Not Given Sodium Chloride (Ns) 1,000 mls @ 125 mls/hr IV .Q8H ONE Stop: 04/06/24 15:58 Last Admin: 04/06/24 13:55 Dose: 125 mls/hr Magnesium Sulfate (Magnesium Sulfate Ivpb) 2 gm in 50 mls @ 25 mls/hr IV X1 ONE Stop: 04/07/24 13:47 Last Admin: 04/07/24 11:56 Dose: 25 mls/hr Sodium Chloride (Ns) 1,000 mls @ 75 mls/hr IV .[id number] [facility] Stop: 04/08/24 03:05 Last Admin: 04/07/24 13:53 Dose: 75 mls/hr Dextrose/Sodium Chloride (D5-Ns) 1,000 mls @ 75 mls/hr IV .[id number] [facility] Stop: 04/09/24 09:14 Last Admin: 04/08/24 23:22 Dose: 75 mls/hr Sodium Chloride (Ns) 1,000 mls @ 50 mls/hr IV .Q20H [facility] Stop: 04/10/24 12:33 Last Infusion: 04/10/24 16:31 Dose: Infused Potassium Chloride (Kcl Ivpb) 10 meq in 100 mls @ 100 mls/hr IV Q1H [facility] Stop: 04/10/24 09:40 Last Infusion: 04/10/24 16:30 Dose: Infused Sodium Chloride (Ns) 1,000 mls @ 65 mls/hr IV .[id number] [facility] Stop: 04/10/24 23:32 Last Admin: 04/10/24 09:05 Dose: 65 mls/hr Sodium Chloride (Ns) 500 mls @ 999 mls/hr IV .Q31M ONE Stop: 04/11/24 03:14 Last Admin: 04/11/24 02:57 Dose: 999 mls/hr Sodium Chloride (Ns) 500 mls @ 999 mls/hr IV .Q31M ONE Stop: 04/11/24 03:19 Insulin Human Regular (Insulin Hum Regular 1 Unit/0.01 Ml (Per Unit)) 5 unit IV X1 ONE Stop: 03/21/24 08:23 Last Admin: 03/21/24 10:13 Dose: 5 unit Levetiracetam (Levetiracetam Inj 100 Mg/Ml Vial 5ml) 1,000 mg IVP X1 ONE Stop: 03/26/24 22:04 Last Admin: 03/26/24 23:26 Dose: 1,000 mg Levetiracetam (Levetiracetam Liqd 500 Mg/5 Ml Udc) 500 mg PO BID [facility] Stop: 04/26/24 08:59 Last Admin: 03/27/24 20:37 Dose: 500 mg Levetiracetam (Levetiracetam Inj 100 Mg/Ml Vial 5ml) 1,000 mg IVP X1 ONE Stop: 03/28/24 03:50 Last Admin: 03/28/24 03:59 Dose: 1,000 mg Levetiracetam (Levetiracetam Inj 100 Mg/Ml Vial 5ml) 750 mg IVP Q12HR [facility] Stop: 04/27/24 08:59 Last Admin: 03/28/24 09:53 Dose: 750 mg Levetiracetam (Levetiracetam Inj 100 Mg/Ml Vial 5ml) 1,000 mg IVP Q12HR [facility] Stop: 04/27/24 20:59 Last Admin: 03/29/24 20:23 Dose: 1,000 mg Levetiracetam (Levetiracetam Inj 100 Mg/Ml Vial 5ml) 750 mg IVP Q12HR [facility] Stop: 04/29/24 08:59 Last Admin: 03/30/24 21:15 Dose: 750 mg Levothyroxine Sodium (Levothyroxine Sodium 125 Mcg Tablet) 137 mcg PO ACBR [facility] Stop: 04/20/24 05:59 Levothyroxine Sodium (Levothyroxine Sodium 25 Mcg Tablet) 25 mcg PO ACBR [facility] Stop: 04/20/24 05:59 Last Admin: 03/21/24 11:01 Dose: Not Given Lidocaine HCl (Lidocaine Inj Pf 1% 30 Ml Vial) 9 ml INFL X1 ONE Stop: 03/21/24 14:46 Last Admin: 03/21/24 14:55 Dose: 9 ml Loperamide HCl (Loperamide 2 Mg Capsule) 4 mg PO X1 ONE Stop: 03/25/24 10:38 Last Admin: 03/26/24 04:45 Dose: Not Given Loperamide HCl (Loperamide 2 Mg Capsule) 2 mg PO TID PRN PRN Reason: High output iliostomy Stop: 04/01/24 12:42 Last Admin: 03/26/24 11:12 Dose: 2 mg Loperamide HCl (Loperamide 2 Mg Capsule) 10 mg PO TID PRN PRN Reason: High output iliostomy Stop: 04/01/24 12:42 Loperamide HCl (Loperamide 2 Mg Capsule) 10 mg PO TID [facility] Stop: 04/02/24 13:59 Last Admin: 04/02/24 05:45 Dose: 10 mg Loperamide HCl (Loperamide 2 Mg Capsule) 2 mg PO Q6HR [facility] Stop: 04/12/24 11:59 Last Admin: 04/06/24 05:51 Dose: 2 mg Loperamide HCl (Loperamide 2 Mg Capsule) 10 mg PO TID [facility] Stop: 04/13/24 13:59 Last Admin: 04/08/24 05:02 Dose: Not Given Loperamide HCl (Loperamide 2 Mg Capsule) 8 mg PO X1 ONE Stop: 04/06/24 07:41 Last Admin: 04/06/24 09:07 Dose: 8 mg Lorazepam (Lorazepam 2 Mg/Ml Vial) 2 mg IVP X1 ONE Stop: 03/28/24 03:47 Last Admin: 03/28/24 03:59 Dose: 2 mg Lorazepam (Lorazepam 2 Mg/Ml Vial) 2 mg IVP Q15M PRN PRN Reason: ANXIETY Stop: 04/02/24 03:46 Lorazepam (Lorazepam 2 Mg/Ml Vial) 2 mg IVP Q15M PRN PRN Reason: SEIZURES Stop: 04/02/24 03:46 Lorazepam (Lorazepam 2 Mg/Ml Vial) 2 mg IVP Q15M PRN PRN Reason: seizure Magnesium Oxide (Magnesium Oxide 400 Mg Tablet) 400 mg PO QDAY [facility] Stop: 05/04/24 15:29 Last Admin: 04/09/24 08:19 Dose: Not Given Memantine (Memantine Hcl 5 Mg Tablet) 10 mg PO BID [facility] Stop: 04/20/24 20:59 Last Admin: 03/26/24 20:42 Dose: 10 mg Meperidine HCl (Meperidine Inj 50 Mg/Ml Vial) 12.5 mg IV Q5M PRN PRN Reason: SHIVERING Stop: 04/09/24 13:30 Metoprolol Tartrate (Metoprolol Tartrate 25 Mg Tablet) 25 mg PO X1 ONE Stop: 04/07/24 08:47 Last Admin: 04/07/24 08:58 Dose: Not Given Metoprolol Tartrate (Metoprolol Tartrate Inj 1 Mg/Ml Amp 5 Ml) 1 mg IVP Q5M PRN PRN Reason: TACHYCARDIA Stop: 04/09/24 13:30 Metronidazole (Metronidazole 250 Mg Tablet) 500 mg PO Q8H [facility] Stop: 03/30/24 07:59 Last Admin: 03/24/24 10:03 Dose: Not Given Metronidazole (Metronidazole 250 Mg Tablet) 500 mg PO TID [facility] Stop: 03/30/24 08:59 Last Admin: 03/27/24 14:45 Dose: 500 mg Midazolam HCl (Midazolam Inj 1 Mg/Ml Vial 2 Ml) 1 mg IV Q5M PRN PRN Reason: ANXIETY Stop: 04/09/24 13:30 Morphine Sulfate (Morphine Sulf Inj 10 Mg/Ml Vial) 2 mg IVP X1 ONE Stop: 04/01/24 11:37 Last Admin: 04/01/24 11:48 Dose: 2 mg Morphine Sulfate (Morphine Sulf Inj 10 Mg/Ml Vial) 2 mg IVP Q10M PRN PRN Reason: PAIN SCALE 4-10(Mod-Sev Stop: 04/09/24 13:30 Ondansetron HCl (Ondansetron Inj 2 Mg/Ml Inj 2 Ml) 4 mg IV X1 ONE; Protocol Stop: 03/21/24 01:16 Last Admin: 03/21/24 01:44 Dose: 4 mg Pantoprazole Sodium (Pantoprazole Inj 40 Mg Vial) 40 mg IVP X1 ONE Stop: 04/07/24 23:59 Last Admin: 04/08/24 00:06 Dose: 40 mg Pantoprazole Sodium (Pantoprazole Inj 40 Mg Vial) 40 mg IV X1 ONE Stop: 04/09/24 09:31 Last Admin: 04/09/24 11:40 Dose: Not Given Potassium Chloride (Potassium Chloride 20 Meq Tabcr) 40 meq PO X1 ONE Stop: 03/23/24 09:20 Last Admin: 03/23/24 10:44 Dose: Not Given Potassium Chloride (Potassium Chloride 10% 20 Meq/15 Ml Udc) 40 meq PO X1 ONE Stop: 03/23/24 10:46 Last Admin: 03/23/24 10:43 Dose: 40 meq Potassium Chloride (Potassium Chloride 20 Meq Tabcr) 40 meq PO X1 ONE Stop: 03/27/24 07:13 Last Admin: 03/27/24 11:23 Dose: 40 meq Potassium Chloride (Potassium Chloride 10% 20 Meq/15 Ml Udc) 40 meq PO X1 ONE Stop: 03/27/24 07:31 Last Admin: 03/27/24 11:22 Dose: 40 meq Potassium Phos/Sodium Phos (Naph,Kph Mbdb 1 Packet (1.5 Gm)) 1 packet PO X1 ONE Stop: 03/26/24 08:27 Last Admin: 03/26/24 11:12 Dose: 1 packet Potassium Phos/Sodium Phos (Naph,Kph Mbdb 1 Packet (1.5 Gm)) 1 packet PO X1 ONE Stop: 03/29/24 08:12 Last Admin: 03/29/24 09:29 Dose: 1 packet Potassium Phos/Sodium Phos (Naph,Kph Mbdb 1 Packet (1.5 Gm)) 1 packet PO X1 ONE Stop: 03/31/24 07:56 Last Admin: 03/31/24 09:41 Dose: 1 packet Sevelamer Carbonate (Sevelamer Carbonate 800 Mg Tablet) 800 mg PO TIDWM [facility] Stop: 04/20/24 11:59 Last Admin: 03/24/24 10:03 Dose: Not Given Sevelamer Carbonate (Sevelamer Carbonate 0.8 Gm Packet (Non-Formulary)) 0.8 gm PO TIDWM [facility] Stop: 04/22/24 08:59 Last Admin: 03/24/24 10:03 Dose: Not Given Sodium Polystyrene Sulfonate (Sod Polystyrene Sulfon Susp 15 Gm/60 Ml Btl) 30 gm PO X1 ONE Stop: 03/21/24 08:23 Last Admin: 03/21/24 10:12 Dose: 30 gm Tuberculin PPD (Tuberculin Ppd Inj 5 Unit/0.1 Ml Dose) 5 unit ID X1 ONE Stop: 03/21/24 20:11 Last Admin: 03/22/24 15:10 Dose: 5 unit Valproic Acid (Valproic Acid Syrup 250 Mg/5 Ml Udc) 500 mg PO HS ASHISH Stop: 04/29/24 20:59 Last Admin: 03/30/24 21:06 Dose: 500 mg Valproic Acid (Valproic Acid Syrup 250 Mg/5 Ml Udc) 500 mg PO BID ASHISH Stop: 04/30/24 08:59 Last Admin: 04/02/24 21:10 Dose: 500 mg Assessment & Plan Plan Ms. Shell is a 78-year-old female with a past medical history significant for hypothyroidism, hypertension, JACKIE, asthma, depression, bipolar disorder, dementia, recurrent UTI, previous right hemicolectomy withdiverting ileostomy and later recent reversal of ileostomy on 04/09/2024 presented initially with altered mental status and nausea and vomiting and admitted for acute uremic encephalopathy and MAKENZIE as well as sepsis secondary to UTI versus intra-abdominal abscess as seen on CT imaging. ICU was consulted on 04/11/24 for further management of undifferentiated shock vs symptomatic bradycardia. NEURO #New onset seizures #Complex partial seizures Suspicion of seizures marked by bilateral tremors. Teleneuro was consulted. CT head and CTA negative for any acute findings. Patient has been seizure free over the last 3 days. New onset of seizures could be because patient stopped taking Depakote, is on 250 at home, takes Depakote for hx bipolar disorder -Neurology suspected complex partial seizures and recommended increasing valproate dose in place of Keppra due to better side effect profile. -Valproic 750mg twice daily -Seizure precautions #Acute metabolic encephalopathy - resolved #Chronic insomnia ? Held home Ambien 5 mg nightly CARDIO # Undifferentiated shock DDx: Likely septic shock vs distributive shock from leakage of contents s/p ileostomy reversal vs bacteremic vs hemorrhagic shock Patient presented with hypotension, lethargy, and hypothermic, with qSOFA 1. Fluid resuscitation of 1L given during rapid response. Labs significant for leukoycytosis and low Hgb of 6.9. -Started IV Vancomycin and Zosyn -Pending blood cultures and Lactic acid, trend if elevated -Continue with Levophed for pressure support to keep MAP greater than 65 for adequate organ perfusion -Consider consulting nephrology if patient's metabolic acidosis fails to improve requiring possible hemodialysis -Continue with q1 temperature checks, keep patient on bear hugger and warm blankets -Order repeat H&H, Type and Screen, and 2upRBC -Transfuse if repeat Hgb < 7 -Wound vac, Dr. Flynn, general surgery following #Symptomatic bradycardia Patient had a RR for symptomatic bradycardia in the low 40s. EKG after Amp of D50 showed sinus bradycardia in the 50s. Repeat RR showed HR dropped back down to the low 40s, and patient appeared more lethargic. -Gave Atropine x 1 -Order repeat EKG -Consider transcutaneous pacing if HR drops #History of hypertension- chronic Patient has a longstanding hypertension on both metoprolol and hydralazine. 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 Flynn. Patient had incision and drainage done 04/[address] Flynn, wound was irrigated with saline and packed, without complications Due to possible colostomy leakage/malfunction/complications, patient had 3 admissions since the procedure, and reversal of ileostomy was performed 04/09/24. Patient has not had bowel movement since 04/08/24. ?Wound VAC, Dr. 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 Patient has not been consuming 100% of meals. Creatinine down trended from 1.9 to 1.6 today. Will be gentle on fluids as patient is tolerating p.o. -IV fluids 65 cc/hour -Avoid nephrotoxins -Renally dose medications -Avoid diuretics and NSAIDs -Coordinator Of Online Programs, Dr. Rahman following, appreciate recs #Electrolyte imbalances #Hyperphosphatemia Urgent dialysis indicated on admission, patient had temporary catheter placement. Holding dialysis for now because renal function is improving Plan: -Coordinator Of Online Programs Dr. Lacey padilla,recommends to treat elevated Phos after patient starts tolerating advanced diet -Continue to monitor CMP HEME #Normocytic anemia #Acute blood loss Patient presented with a low hemoglobin/hematocrit of 6.9/22.3. -Continue to monitor serial H&H -Transfuse if hemoglobin is less than 7 -Goal hemoglobin is greater than 8 -Ordered 2upRBC, repeat H&H, Type and screen #Leukocytosis Initial WBC elevated at 17. Secondary to septic shock from possible infection. -Continue to monitor daily CBC -Blood cultures pending ENDO #History of hypothyroidism Patient has a history of hypothyroidism. She takes levothyroxine at home. ?Levothyroxine 137 mcg before breakfast ID #E.Coli UTI #History of recurrent UTI Patient initially reported dysuria and cloudy urine on admission. CT A/P 03/31: Fluid collection 5.4 x 4.0 x 2.2 cm in subcutaneous fatty tissue anterior pelvic wall, differentials include abcess and hematoma Repeat Blood culture, negative x2 final. Urine cultures positive for E. coli, pansensitive. -Completed 1 week course of doxycycline and IV Zosyn from 03/21-04/02) -IV Zosyn (03/21-04/02) -Restarted patient on Vanc and Zosyn for possible septic shock 2/2 abdominal infection from reverse ileostomy MSK No active issues SKIN No active issues PYSCH #History of Bipolar Patient takes home Valproic acid. -Resumed Valproic acid, but increased dosage d/t new finding of complex partial seizures Health Maintenance: DVT prophylaxis: SCDs GI prophylaxis: PPI QD Diet: CLD Root: Yes Lines: Central line in RIJ CODE STATUS: FULL Reason for ICU care: Admitted to ICU for undifferentiated shock requiring pressor support. Pending lactic acid and BCx. Patient plan of care was discussed with the attending Dr. Newton. Kiki Brush, PGY-2 Attending Provider Attestation/Addendum I discussed with and supervised the resident physician who took care of this patient. I agree with the assessment and plan as above. Patient's chart was reviewed. She received Val agustin. Before Ambien she was not bradycardic. Patient is drowsy to lethargic. Continue close monitoring.
[2024-04-11 04:32] LABS: Anion Gap 12 (7-16); BUN/Creatinine Ratio 27 Ratio (12-20); Blood Urea Nitrogen 63 mg/dL (9-23); Calcium 7.6 mg/dL (8.3-10.6); Carbon Dioxide 19.4 mMol/L (20.0-31.0); Chloride 102 mMol/L (98-107); Creatinine (Component) 2.3 mg/dL (0.6-1.3); Estimated Creatinine Clearance 17.1 mL/min (>60); Glucose 144 mg/dL (74-106); Magnesium 1.6 mg/dL (1.6-2.6); Osmolality,Calculated 287 (275-295); Phosphorous 5.3 mg/dL (2.4-5.1); Potassium 4.6 mMol/L (3.4-5.1); Sodium 133 mMol/L (136-145); eGFR 21 See Note
--- NOTE | 2024-04-11 04:52 | PD.RESPROC ---
Procedures Procedure Date / Time 04/11/24 0452 Central Line Placement Right IJ: Indication(s): shock and poor, or inadequate peripheral venous access Informed consent obtained: obtained from surrogate decision maker Time out done, and the following verified: correct patient, side and site, procedure, patient position and implants and/or equipment Patient placed on monitor/pulse ox: Yes Hand Hygiene: soap & water and alcohol-based hand rub Max Sterile Barrier Techniques used: cap, mask, sterile gown, sterile gloves and sterile full body drape Central line prep: Povidone-Iodine 1%, Chlorhexidine scrub and sterile drapes applied Local anesthesia used: lidocaine 1% Amount of anesthesia used (mL): 10 Ultrasound used for placement: Yes Sterile Technique if Ultrasound used, including sterile gel: yes Central line lumen inserted: triple Post procedure: sutured in place, good blood return, all ports aspirated, flushed, capped and sterile dressing applied Post procedure x-ray: tip of catheter in good position and no pneumothorax seen Patient tolerated procedure: well and no complications EBL(ml): 1 Complications: none Procedure comment: Patient required central line placement due to poor peripheral IV access along with pressor requirement due to shock. Sterile technique was used both prior and during the procedure. A 16 cm central line kit was used along with an ultrasound with probe cover. Seldinger technique was used to successfully start a central line on the right IJ. There was minimal blood loss and no acute complications post procedure. A chest x-ray was ordered which clearly showed the tip of the central line at a satisfactory placement. Procedure was completed alongside senior resident Dr. Riggs. Dhiraj Gil, PGY-1
--- NOTE | 2024-04-11 04:55 | EVENTNT_ITS ---
Documentation for date of: 04/11/24 Event Note Event Note: Rapid response was called around 02:11 AM for bradycardia. Patient was in the low 40s seen on telemetry. Patient's bedside glucose was 80, and BP was normotensive. Patient noted to be getting Donepezil daily as well as a one time dose of Zolpidem once time today. Patient also hasn't been using her Morphine pump since 04/10/24. Patient also noted to have eaten only 33% of her dinner, and decided to give an AMP of D50. Patient's glucose increased to 146 and HR improved to high 50s to low 60s. Patient was seen at bedside, and A&O3, and lethargy improved. Evidently, patient's temperature was 95F temporal, 93F axillary, and 94.7 rectal. Warm blankets placed and started patient on bear hugger. Initially, labs were requested, (BMP, Phos, Mag) however, laborer hoisting unable to draw labs d/t patient's hx of difficulty drawing blood. EKG showed sinus bradycardia with occasional PVCs. Rapid response was called around 02:43AM for low MAP, with BP 70/46. After 2 boluses of 500cc NS, patient's MAP improved > 65, before dropping again to MAP <60. Lactic acid and blood cultures were ordered. In addition, patient noted to be bradycardic again, but patient's mentation remained, but appeared to be more lethargic. Atropine 1mg was given, which helped stablize HR to 70s and 80s. D/t repeatedly low MAP, patient was upgraded to ICU for septic shock s/p recent reversal of ileostomy on 04/09/24 vs symptomatic bradycardia management. Patient's care and plan discussed with my attending, Dr. Newton. Kiki Brush, PGY-2
[2024-04-11] MEDS: GABAPENTIN 100 MG CAPSULE PO ×3 (05:35→21:32)
[2024-04-11] MEDS: LEVOTHYROXINE SODIUM 112 MCG, LEVOTHYROXINE SODIUM 25 MCG 137 MCG PO (05:36)
[2024-04-11 05:59] LABS: Basophils % (Auto) 0 % (0-2.5); Eosinophils # (Auto) 0.1 Thou/mm3 (0.0-0.5); Eosinophils % (Auto) 1 % (0-10); Immature Granulocytes % (Auto) 2 % (0-0); Immature Granulocytes Auto 0.38 Thou/mm3 (0.00-0.00); Lymphocytes # (Auto) 3.4 Thou/mm3 (1.0-4.8); Lymphocytes % (Auto) 20 % (10-50); Mean Corpuscular HGB Conc 30.9 g/dl (31.0-37.0); Mean Corpuscular Hemoglobin 28.3 pg (25.0-35.0); Mean Corpuscular Volume 91 fL (80-100); Monocytes % (Auto) 6 % (0-12); Neutrophils # (Auto) 12.1 Thou/mm3 (1.8-7.7); Neutrophils % (Auto) 71 % (37-80); Nucleated Red Blood Cell % 0 /100 WBC (0); Platelet Count 349 Thou/mm3 (140-440); RDW Standard Deviation 55.8 fL (36.4-46.3); Red Blood Count 2.44 Miln/mm3 (4.00-5.20)
[2024-04-11 06:07] LABS: Hematocrit 22.3 % (36.0-46.0); Hemoglobin 6.9 g/dL (12.0-16.0)
[2024-04-11] MEDS: PIPER/TAZO INJ 3.375 GM in SODIUM CHLORIDE 0.9% 100 ML IV (06:24)
[2024-04-11 06:32] LABS: INR 1.9 (0.9-1.3); Prothrombin Time 20.3 Seconds (9.0-12.2)
[2024-04-11 06:50] LABS: Alanine Aminotransferase 21 U/L (10-49); Albumin, Serum 2.5 gm/dL (3.4-4.8); Alkaline Phosphatase 418 U/L (46-116); Anion Gap 11 (7-16); Aspartate Amino Transferase 32 U/L (0-34); BUN/Creatinine Ratio 28 Ratio (12-20); Bilirubin,Total 0.3 mg/dL (0.3-1.2); Blood Urea Nitrogen 61 mg/dL (9-23); Calcium 7.7 mg/dL (8.3-10.6); Calcium (Corrected) 8.9 mg/dL (8.5-10.1); Carbon Dioxide 21.7 mMol/L (20.0-31.0); Chloride 102 mMol/L (98-107); Creatinine (Component) 2.2 mg/dL (0.6-1.3); Estimated Creatinine Clearance 17.9 mL/min (>60); Globulin 2.4 gm/dL (2.3-3.5); Glucose 91 mg/dL (74-106); Magnesium 1.4 mg/dL (1.6-2.6); Osmolality,Calculated 287 (275-295); Phosphorous 5.1 mg/dL (2.4-5.1); Potassium 3.6 mMol/L (3.4-5.1); Sodium 135 mMol/L (136-145); Total Protein 4.9 gm/dL (5.7-8.2); eGFR 22 See Note
[2024-04-11] MEDS: VANCOMYCIN/NS 1 GM IVPB 200 ML IV (07:56)
[2024-04-11 08:30] LABS: Lactate (Lactic Acid) 1.2 mMol/L (0.4-2.0)
--- NOTE | 2024-04-11 08:34 | PC.PT ---
Patient will be dc from PT services secondary to patient was transferred to ICU.
[2024-04-11 08:45] LABS: Hemoglobin 7.2 g/dL (12.0-16.0)
--- NOTE | 2024-04-11 08:52 | PD.RESPRO ---
Documentation for date of: 04/11/24 Subjective Subjective Interval history: Interval history: 78 y/o F with PMHx significant for hypothyroidism, hypertension, JACKIE, asthma, depression, dementia, recurrent UTI, and is status post hemicolectomy with ileostomy presents with altered mental status and nausea and vomiting. Patient initially presented to ED with altered mentation and was not able to provide history. Subsequently given 2.5 L of fluids per sepsis protocol and mentation slowly improved. Upon evaluation, patient endorsed 2 to 3 days of nausea and vomiting along with decreased p.o. intake. Also endorses abdominal pain at ileostomy site, decreased ileostomy output, as well as dysuria and cloudy urine but denies fever or chills. Otherwise also denies shortness of breath or chest discomfort. Of note, patient recently discharged on 02/15 for ileostomy leakage/malfunction. CT head unremarkable. CT A/P showed Soft tissue mass in the anterior abdominal wall 2.8 x 2.2 cm and aggregate of small bowel versus abscess in the right lower abdomen poorly defined, at least 4 cm in dimension. Patient recieved IVF, magnesisum, zosyn and rocephin in ED. Labs showed sodium 125, potassium 6.6, BUN 134, Metal Bonder 9.3, eGFR 4, Corrected Ca 8.3, phos 10.7, Mg 1.1. Patient has no known history CKD. On exam patient was lethargic but responsive, followed commands, A&Ox3. Appears euvolemic. Nephrology consulted for acute renal failure, plan for emergent dialysis. 04/03/2024 patient currently seen in medical floor. Resting comfortably. Still having significant colostomy losses. CT abdomen with contrast results reviewed. Labs, medications reviewed. Patient feeling much better. Encouraged encourage p.o. fluids. Dialysis catheter was removed. Still leaking around the colostomy site. Surgeon on the case. s/p I&D - abscess. On gentle IV fluids. Creatinine 1.4. Possible surgery this week. Renal giordano no further recommendations. Will follow as needed. 04/09/2024 patient currently seen in telemetry. Resting comfortably. Seems tired. Status post colostomy reversal, repair with wound VAC. Labs, medications reviewed. CBC normal, BUN 56, creatinine 1.6. Calcium 9.5, phosphorus 3.7, magnesium 1.6, alk phos 639. 04/10/2024 patient seen in telemetry, eating breakfast, patient is status post Exploratory laparotomy, reversal of ileostomy day 1, labs reviewed WBC 17.6, hemoglobin 8.3, sodium 139, potassium 3.6, creatinine 1.9, GFR 27, BUN 56, phosphorus 5.7, patient will be started on IV fluids sodium chloride 65 cc/h, will continue to monitor renal function in a.m. 04/11/2024 patient seen in ICU, was upgraded to ICU overnight due to concern of septic shock, patient was given 500 cc bolus twice overnight no improvement in MAP hence was eventually started on Levophed drip and was transferred to ICU for further care. Patient's BUN 61, creatinine 2.2, GFR 22, corrected calcium 8.9, magnesium 1.4, sodium 135. Patient is not fluid responsive per ICU assessment. Patient's MAKENZIE worsen possibly in setting of ischemia from underlying shock. Exam Vital Signs Temp Pulse Resp BP Pulse Ox O2 Del Method O2 Flow Rate 95.9 F L 62 15 119/62 100 Nasal Cannula 3 04/11/24 08:02 04/11/24 08:02 04/11/24 08:02 04/11/24 08:02 04/11/24 08:02 04/10/24 20:00 04/11/24 06:38 Narrative Exam PE: Gen: Well-developed and well-nourished. Elderly frail lady. HEENT: NCAT, PERRLA, EOMI, MMM, anicteric conjunctivae. CVS: normal S1 and S2. RRR. No M/R/G. Trace edema noted bilateral Resp: Few rhonchi noted Abd: soft, non-tender, non-distended. Status post colon surgery with wound VAC, significant redness noted around surgical site. MSK: Good ROM in BUE & BLE. No edema or rash. Neuro strength 4/5 in BUE & BLE. Alert and oriented x3. Objective Labs 04/15/24 04:33 04/15/24 04:33 Labs: Laboratory Results - last 24 hr 04/10/24 04/11/24 04/11/24 15:11 03:15 04:53 WBC 17.0 H RBC 2.44 L Hgb 8.4 L 6.9 L* Hct 26.4 L 22.3 L MCV 91 MCH 28.3 MCHC 30.9 L RDW Std Deviation 55.8 H Plt Count 349 D Neut % (Auto) 71 Lymph % (Auto) 20 [place] % (Auto) 6 Eos % (Auto) 1 Baso % (Auto) 0 Neut # (Auto) 12.1 H Lymph # (Auto) 3.4 [place] # (Auto) 1.0 H Eos # (Auto) 0.1 Baso # (Auto) 0.0 Immature Gran # (Auto) 0.38 H Absolute Nucleated RBC 0.00 Immature Gran % 2 H Nucleated RBC % 0 PT 20.3 H D INR 1.9 H APTT 46.0 H D Sodium 133 L 135 L Potassium 4.6 D 3.6 D Chloride 102 102 Carbon Dioxide 19.4 L 21.7 Anion Gap 12 11 BUN 63 H 61 H Creatinine 2.3 H 2.2 H Estim Creat Clear Calc 17.1 L 17.9 L eGFR 21 L 22 L BUN/Creatinine Ratio 27 H 28 H Glucose 144 H 91 D Calculated Osmolality 287 287 Lactic Acid Calcium 7.6 L 7.7 L Corrected Calcium 8.9 Phosphorus 5.3 H 5.1 Magnesium 1.6 1.4 L Total Bilirubin 0.3 AST 32 ALT 21 Alkaline Phosphatase 418 H Total Protein 4.9 L Albumin 2.5 L D Globulin 2.4 Albumin/Globulin Ratio 1.0 L Crossmatch 04/11/24 08:23 WBC RBC Hgb 7.2 L Hct 23.0 L MCV MCH MCHC RDW Std Deviation Plt Count Neut % (Auto) Lymph % (Auto) [place] % (Auto) Eos % (Auto) Baso % (Auto) Neut # (Auto) Lymph # (Auto) [place] # (Auto) Eos # (Auto) Baso # (Auto) Immature Gran # (Auto) Absolute Nucleated RBC Immature Gran % Nucleated RBC % PT INR APTT Sodium Potassium Chloride Carbon Dioxide Anion Gap BUN Creatinine Estim Creat Clear Calc eGFR BUN/Creatinine Ratio Glucose Calculated Osmolality Lactic Acid 1.2 Calcium Corrected Calcium Phosphorus Magnesium Total Bilirubin AST ALT Alkaline Phosphatase Total Protein Albumin Globulin Albumin/Globulin Ratio Crossmatch See Detail ABG Interpretation ABG results: 03/21/24 05:40 ABG pH 7.35 ABG pCO2 41 ABG pO2 121 H ABG HCO3 23 ABG O2 Saturation 99 H ABG Base Excess -3 Quality Measures Quality Measures VTE prophylaxis and sepsis Current suspected stage: sepsis Possible source: skin/soft tissue Blood cultures ordered: yes Antibiotic ordered: Yes Advance care planning discussed with:: patient Assessment & Plan Assessment Current Active Medications: Generic Name Dose Route Start Last Admin Trade Name Freq PRN Reason Stop Dose Admin Albuterol/Ipratropium 3 ml 03/21/24 15:51 Albuterol/Ipratropium (Duoneb) Rt Tia 3 Ml Nebu INH 04/20/24 18:59 Q4HRRT PRN Shortness of breath Atropine Sulfate 0.5 mg 04/11/24 07:36 Atropine Sulf Inj 0.1 Mg/Ml Syr 10 Ml IVP Q5MIN PRN HR <40 Dextrose 25 ml 03/31/24 09:56 Dextrose 50%-Water Inj 50 Ml Syringe IV 04/30/24 09:55 Q15MIN PRN BG 50-70 responsive npo pt Dextrose 50 ml 03/31/24 09:56 04/11/24 02:15 Dextrose 50%-Water Inj 50 Ml Syringe IV 04/30/24 09:55 50 ml Q15MIN PRN Administration BG <50 OR BG <70 & pt unresponsive Diphenhydramine HCl 25 mg 04/09/24 00:50 04/10/24 10:25 Diphenhydramine Inj 50 Mg/Ml Vial IV 05/09/24 00:49 25 mg Q6HR PRN Administration ITCHING Donepezil HCl 10 mg 03/21/24 21:00 04/10/24 21:53 Donepezil Hcl 5 Mg Tablet PO 04/20/24 20:59 10 mg HS ASHISH Administration Gabapentin 100 mg 04/10/24 14:00 04/11/24 05:35 Gabapentin 100 Mg Capsule PO 05/10/24 13:59 100 mg TID ASHISH Administration Glucagon 1 mg 03/31/24 09:56 Glucagon Inj 1 Mg Vial IM Q15MIN PRN BG <70, and no IV access Hydralazine HCl 10 mg 03/21/24 15:45 Hydralazine Hcl 10 Mg Tablet PO 04/20/24 17:59 Q6HR PRN SBP>160 Albumin Human 25 gm in 100 mls @ 100 mls/min 03/21/24 10:54 Albuminar-25 Ivpb IV PRN PRN DIALYSIS Acetaminophen 1,000 mg in 100 mls @ 250 mls/hr 04/09/24 13:16 04/11/24 08:07 Ofirmev Inj IV 04/12/24 06:23 Not Given Q6HR ASHISH Sodium Chloride 1,000 mls @ 65 mls/hr 04/11/24 00:45 04/11/24 00:46 Ns IV 04/11/24 16:08 65 mls/hr .[id number] ASHISH Administration Norepinephrine Bitartrate 16 mg in 250 mls @ 2.977 mls/hr 04/11/24 03:30 04/11/24 06:00 Levophed In Ns 16mg/250ml IV 05/11/24 03:29 0.07 mcg/kg/min .Q24H PRN 4.167 mls/hr PER PROTOCOL Titration Protocol 0.05 MCG/KG/MIN Piperacillin Sod/Tazobactam 100 mls @ 25 mls/hr 04/11/24 21:00 Sod 3.375 gm/ Sodium Chloride IV 04/18/24 20:59 Q12HR ASHISH Piperacillin Sod/Tazobactam 100 mls @ 25 mls/hr 04/11/24 06:00 04/11/24 06:24 Sod 3.375 gm/ Sodium Chloride IV 04/11/24 09:59 25 mls/hr X1 ONE Administration Levothyroxine Sodium 112 mcg/ 137 mcg 03/21/24 07:30 04/11/24 05:36 Levothyroxine Sodium 25 mcg PO 04/20/24 07:29 137 mcg ACBR ASHISH Administration Metoprolol Tartrate 25 mg 03/21/24 21:00 04/10/24 21:50 Metoprolol Tartrate 25 Mg Tablet PO 04/20/24 20:59 Not Given BID ASHISH Morphine Sulfate 0 mg 04/09/24 12:22 04/09/24 12:35 Morphine Sulf 1 Mg/Ml Wall And Floor Tiler Syringe 30 Ml MOTOR 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 FOREMAN 04/14/24 12:21 30 mg PER ORDER ASHISH Administration Protocol Ondansetron HCl 4 mg 03/21/24 06:08 04/08/24 20:53 Ondansetron Inj 2 Mg/Ml Inj 2 Ml IV 04/20/24 06:07 4 mg Q6H PRN Administration NAUSEA OR VOMITING Protocol Pantoprazole Sodium 40 mg 04/07/24 12:00 04/10/24 09:06 Pantoprazole 40 Mg Tablet PO 05/07/24 11:59 40 mg QDAY ASHISH Administration Pharmacy Consult 1 each 04/11/24 09:00 Vancomycin Pharmacy To Dose 1 Each Each IV 05/11/24 08:59 QDAY PRN PROTOCOL Sodium Chloride 3 ml 03/21/24 08:25 Sodium Chloride Rt Tia 0.9% 3 Ml Nebu INH 04/20/24 08:24 PRN PRN SOLN Valproic Acid 750 mg 04/03/24 09:00 04/10/24 21:54 Valproic Acid Syrup 250 Mg/5 Ml Udc PO 05/03/24 08:59 750 mg BID ASHISH Administration Plan 78 y/o F with PMHx significant for hypothyroidism, hypertension, JACKIE, asthma, depression, dementia, recurrent UTI, and is status post hemicolectomy with ileostomy admitted for acute uremic encephalopathy, stage III acute kidney injury, sepsis secondary to UTI versus intra-abdominal abscess. #Acute kidney injury-suspect patient in ischemic ATN Patient received 2 dialysis treatments and started to make good urine. Dialysis was discontinued and catheter removed. Creatinine improved to 1.6, sodium 136. -s/p CT abdomen with IV contrast . Continue with gentle IV hydration. Patient is status post reversal of ileostomy day 2, patient was upgraded to ICU overnight due to concern of septic shock, patient was given 500 cc bolus twice overnight no improvement in MAP hence was eventually started on Levophed drip and was transferred to ICU for further care. Patient's BUN 61, creatinine 2.2, GFR 22 Plan of care discussed with ICU team -Per ICU assessment, patient is not fluid responsive -Will monitor renal function in a.m., patient currently on pressors -Avoid nephrotoxins -Renally dose medications #Sepsis, secondary to GI/UTI-on antibiotics.. plan of care discussed with primary team, Dr. Flynn-did the reversal of ileostomy with wound VAC #Electrolyte imbalances #Hypothyroidism #Hypertension #Depression #Dementia Management as per primary team. Case discussed with Attending physician Dr. Lacey Shirley PGY1 Attending Provider Attestation/Addendum Patient seen and examined with resident physician Dr. Shirley. Note reviewed, agree with findings and recommendations. Patient moved to ICU for sepsis and shock. Was given IV fluids and no improvement in blood pressure that she needed pressors. Currently seen in ICU. Urine output started to trend down. Creatinine rodolfo to 2.2. Discussed with ICU team. Status post exploratory laparotomy and ileostomy reversal. Surgeon on the case. On broad-spectrum antibiotics.
[2024-04-11] MEDS: PANTOPRAZOLE INJ 40 MG VIAL IVP (09:23)
[2024-04-11] MEDS: VALPROIC ACID SYRUP 250 MG/5 ML UDC 750 MG PO ×2 (09:23→21:28)
--- NOTE | 2024-04-11 09:41 | PD.RESCONSUL ---
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 Initially in the ED patient came in with altered mental status accompanied with nausea and vomiting and was unable to provide any history. In ED patient received 2.5 L of fluids per sepsis protocol and her mentation slowly improved and internal medicine team was able to gather his some history. Initially she was mildly hypertensive and hypothermic. Initial labs showed leukocytosis (WBC 20.9), Hgb 12.6, PT 12.7, ABG (pH 7.35, pCO2 41, pO2 121), sodium 123, potassium 5.5, chloride 88, bicarb 21.7, BUN 121, creatinine 9.5, lactic acid 3.7, phosphorus 10.7, magnesium 1.1, troponin 0.21 and later down trended to 0.215, elevated procalcitonin 0.51, and UA was positive for leukocytes esterase bacteria allergies. Initial labs included chest x-ray which showed no pneumonia and CT chest/abdomen/pelvis which showed heavy calcification of the left anterior descending coronary artery, pulmonary artery hypertension, soft tissue mass in anterior abdominal wall, and aggregate of small bowel versus abscess in the right lower abdomen measuring at least 4 cm. Additional studies included head CT which did not show any acute hemorrhage, EKG which showed sinus rhythm, and renal ultrasound which showed bilateral renal cortical thinning as well as renal parenchyma scar formation. Throughout the patient's hospital course she had some complications as well as surgeries. Patient had seizure-like activity on 03/26/2024 where she was found to be having an episode of shakiness and a blank stare. At this time teleneurology was consulted and recommended that the patient be placed on Keppra and to get an MRI brain without contrast as well as an EEG. Patient's brain MRI with MRA was significant for prominent chronic microvascular white matter changes and EEG was unremarkable. Patient underwent I&D on 04/01/2024 and afterwards had an ex lap with reversal ileostomy on 04/09/2024 as well by general surgery. On postop day 2 patient had a rapid response called at 2 AM due to bradycardia with heart rate in the low 40s and at this time her vital signs were stable, but afterwards she had another rapid response called closer to 3 AM due to low blood pressure with a MAP below 65. She was given 1 L bolus of NS and patient's MAP improved above 65 but shortly after decreased to below 60 again. Eventually patient had a central line placed and was started on norepinephrine. Additional imaging included chest/abdomen/pelvis CT on 03/27/2024 which showed a 24 x 23 mm fluid containing mass in the anterior pelvic wall, chest x-ray on 03/27/2024 which did not show any pneumonia, liver ultrasound 03/28/2024 which showed a common bile duct without any stones and no focal lesions on the liver, and abdomen/pelvis CT on 03/31/2024 which does show the fluid collection measuring 5.4 x 4.0 x 2.2 cm in the anterior pelvic wall. She also underwent another EKG which showed atrial tachycardia with occasional PVCs on 04/07/2024. Today's labs showed WBC 17, hemoglobin 6.9 with repeat being 7.2, PT 20.3, INR at 1.9, PTT 46, sodium 135, potassium 3.6, bicarb 21.7, BUN 61, creatinine 2.2, lactic acid 1.2, phosphorus 5.1, and magnesium 1.4. EKG today showed sinus bradycardia with first-degree AV block. On my assessment patient was AOx3, but was very drowsy and was a very poor historian. She was able to follow some simple commands such as squeezing with her hands and moving her feet, but she was unable to provide any history of why she was here in the hospital or her current situation. Most of the history and events were taken by chart review. Cardiology was consulted due to symptomatic bradycardia. 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 Nose: No visible nasal discharge. Mouth/Throat: Dry mucous membranes, no redness, no lesions. Neck: Neck supple, non-tender, no cervical lymphadenopathy. Lungs: Clear MYRNA to auscultation and percussion, No accessory muscle use. Cardio: Normal S1/S2, regular rhythm, no murmurs, no JVD Abdomen: Soft, non-tender, no palpable masses, peristalsis present, no guarding or rebound. Wound VAC in place, with some erythema surrounding, but draining well Extremities: Symmetrical, no significant deformities, trace edema , non-tender, peripheral pulses presents. Skin: No rashes, no lesions, warm to touch. Neuro: Patient was able to move all extremities. She was able to follow simple commands, but cannot answer complex questions or proper history or events Results Labs 04/11/24 08:23 04/11/24 04:53 Labs: Short CBC 04/10/24 04/11/24 04/11/24 Range/Units 15:11 04:53 08:23 WBC 17.0 H (3.6-11.0) Thou/mm3 Hgb 8.4 L 6.9 L* 7.2 L (12.0-16.0) g/dL Hct 26.4 L 22.3 L 23.0 L (36.0-46.0) % Plt Count 349 D (140-440) Thou/mm3 BMP 04/11/24 04/11/24 03:15 04:53 Sodium 133 L 135 L Potassium 4.6 D 3.6 D Chloride 102 102 Carbon Dioxide 19.4 L 21.7 BUN 63 H 61 H Creatinine 2.3 H 2.2 H Glucose 144 H 91 D Calcium 7.6 L 7.7 L Liver Function 04/11/24 Range/Units 04:53 Total Bilirubin 0.3 (0.3-1.2) mg/dL AST 32 (0-34) U/L ALT 21 (10-49) U/L Alkaline Phosphatase 418 H (46-116) U/L Albumin 2.5 L D (3.4-4.8) gm/dL ABG Interpretation ABG results: 03/21/24 05:40 ABG pH 7.35 ABG pCO2 41 ABG pO2 121 H ABG HCO3 23 ABG O2 Saturation 99 H ABG Base Excess -3 Quality Measures Quality Measures VTE prophylaxis and sepsis Current suspected stage: sepsis Possible source: skin/soft tissue Blood cultures ordered: yes Antibiotic ordered: Yes Advance care planning discussed with:: patient Medications Home Medications and Allergies Home Medications ?Medication ?Instructions ?Recorded ?Confirmed ?Type aspirin 81 mg tablet,delayed 81 mg PO QDAY 11/13/22 03/06/24 History release loratadine 10 mg tablet 10 mg PO QDAY 11/13/22 03/06/24 History divalproex 250 mg tablet,delayed 250 mg PO HS 12/18/23 03/06/24 History release (Depakote) donepezil 10 mg tablet 10 mg PO HS 12/18/23 04/05/24 History ferrous sulfate 325 mg (65 mg 325 mg PO BID 12/18/23 03/06/24 History iron) tablet (FeroSul) memantine 10 mg tablet 10 mg PO BID 12/18/23 03/26/24 History montelukast 10 mg tablet 10 mg PO HS 12/18/23 03/06/24 History multivitamin 1 tab PO QDAY 12/18/23 03/06/24 History nortriptyline 10 mg capsule 10 mg PO HS 12/18/23 03/06/24 History pantoprazole 40 mg tablet,delayed 40 mg PO QDAY 01/19/24 03/06/24 History release bisacodyl 10 mg rectal suppository 10 mg IL Q72H PRN Constipation 01/24/24 03/06/24 History (Dulcolax (bisacodyl)) calcium carbonate 500 mg PO Q6HR PRN Acid Reflux 01/24/24 03/06/24 History lidocaine 5 % topical cream 1 applic topical Q12HR PRN Pain 01/24/24 03/06/24 History magnesium hydroxide 400 mg/5 mL 30 ml PO Q72H PRN Constipation 01/24/24 03/06/24 History oral suspension (Milk of Magnesia) ondansetron HCl 8 mg tablet 8 mg PO Q6HR PRN Nausea And 01/24/24 03/06/24 History Vomiting zolpidem 5 mg tablet (Ambien) 5 mg PO HS 01/24/24 03/26/24 History ascorbic acid (vitamin C) 500 mg 500 mg PO BID 02/15/24 03/06/24 History tablet (Vitamin C) levothyroxine 137 mcg tablet 137 mcg PO QDAY 03/26/24 03/26/24 History metoprolol tartrate 25 mg tablet 25 mg PO BID 03/26/24 03/26/24 History atorvastatin 10 mg tablet 10 mg PO QPM 04/05/24 04/05/24 History valproic acid (as sodium salt) 250 500 mg PO HS 04/05/24 04/05/24 History mg/5 mL oral solution Allergies Allergy/AdvReac Type Severity Reaction Status Date / Time haloperidol Allergy Severe Confusion Verified 03/06/24 13:18 naproxen Allergy Intermediate HIVES Verified 03/06/24 13:18 fluoxetine Allergy Unknown ANXIETY Verified 03/06/24 13:18 Visit Medications Albuterol/Ipratropium (Albuterol/Ipratropium (Duoneb) Rt Tia 3 Ml Nebu) 3 ml INH Q4HRRT PRN PRN Reason: Shortness of breath Stop: 04/20/24 18:59 Atropine Sulfate (Atropine Sulf Inj 0.1 Mg/Ml Syr 10 Ml) 0.5 mg IVP Q5MIN PRN PRN Reason: HR <40 Dextrose (Dextrose 50%-Water Inj 50 Ml Syringe) 25 ml IV Q15MIN PRN PRN Reason: BG 50-70 responsive npo pt Stop: 04/30/24 09:55 Dextrose (Dextrose 50%-Water Inj 50 Ml Syringe) 50 ml IV Q15MIN PRN PRN Reason: BG <50 OR BG <70 & pt unresponsive Stop: 04/30/24 09:55 Last Admin: 04/11/24 02:15 Dose: 50 ml Diphenhydramine HCl (Diphenhydramine Inj 50 Mg/Ml Vial) 25 mg IV Q6HR PRN PRN Reason: ITCHING Stop: 05/09/24 00:49 Last Admin: 04/10/24 10:25 Dose: 25 mg Donepezil HCl (Donepezil Hcl 5 Mg Tablet) 10 mg PO HS [facility] Stop: 04/20/24 20:59 Last Admin: 04/10/24 21:53 Dose: 10 mg Gabapentin (Gabapentin 100 Mg Capsule) 100 mg PO TID [facility] Stop: 05/10/24 13:59 Last Admin: 04/11/24 05:35 Dose: 100 mg Glucagon (Glucagon Inj 1 Mg Vial) 1 mg IM Q15MIN PRN PRN Reason: BG <70, and no IV access Hydralazine HCl (Hydralazine Hcl 10 Mg Tablet) 10 mg PO Q6HR PRN PRN Reason: SBP>160 Stop: 04/20/24 17:59 Albumin Human (Albuminar-25 Ivpb) 25 gm in 100 mls @ 100 mls/min IV PRN PRN PRN Reason: DIALYSIS Acetaminophen (Ofirmev Inj) 1,000 mg in 100 mls @ 250 mls/hr IV Q6HR [facility] Stop: 04/12/24 06:23 Last Admin: 04/11/24 08:07 Dose: Not Given Sodium Chloride (Ns) 1,000 mls @ 65 mls/hr IV .[id number] [facility] Stop: 04/11/24 16:08 Last Infusion: 04/11/24 07:00 Dose: 0 mls/hr Norepinephrine Bitartrate (Levophed In Ns 16mg/250ml) 16 mg in 250 mls @ 2.977 mls/hr IV .Q24H PRN; Protocol PRN Reason: PER PROTOCOL Stop: 05/11/24 03:29 Last Titration: 04/11/24 06:00 Dose: 0.07 mcg/kg/min, 4.167 mls/hr Piperacillin Sod/Tazobactam (Sod 3.375 gm/ Sodium Chloride) 100 mls @ 25 mls/hr IV Q12HR [facility] Stop: 04/18/24 20:59 Piperacillin Sod/Tazobactam (Sod 3.375 gm/ Sodium Chloride) 100 mls @ 25 mls/hr IV X1 ONE Stop: 04/11/24 09:59 Last Admin: 04/11/24 06:24 Dose: 25 mls/hr Magnesium Sulfate (Magnesium Sulfate Ivpb) 4 gm in 50 mls @ 12.5 mls/hr IV X1 ONE Stop: 04/11/24 13:36 Potassium Chloride (Kcl Ivpb) 10 meq in 100 mls @ 100 mls/hr IV Q1H [facility] Stop: 04/11/24 11:38 Levothyroxine Sodium 112 mcg/ (Levothyroxine Sodium 25 mcg) 137 mcg PO ACBR [facility] Stop: 04/20/24 07:29 Last Admin: 04/11/24 05:36 Dose: 137 mcg Metoprolol Tartrate (Metoprolol Tartrate 25 Mg Tablet) 25 mg PO BID [facility] Stop: 04/20/24 20:59 Last Admin: 04/10/24 21:50 Dose: Not Given Morphine Sulfate (Morphine Sulf 1 Mg/Ml Master Plumber Syringe 30 Ml) 0 mg 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 OPERATOR PER ORDER [facility]; Protocol Stop: 04/14/24 12:21 Last Admin: 04/09/24 12:35 Dose: 30 mg Ondansetron HCl (Ondansetron Inj 2 Mg/Ml Inj 2 Ml) 4 mg IV Q6H PRN; Protocol PRN Reason: NAUSEA OR VOMITING Stop: 04/20/24 06:07 Last Admin: 04/08/24 20:53 Dose: 4 mg Pantoprazole Sodium (Pantoprazole Inj 40 Mg Vial) 40 mg IVP QDAY [facility] Stop: 05/11/24 09:14 Last Admin: 04/11/24 09:23 Dose: 40 mg Pharmacy Consult (Vancomycin Pharmacy To Dose 1 Each Each) 1 each IV QDAY PRN PRN Reason: PROTOCOL Stop: 05/11/24 08:59 Sodium Chloride (Sodium Chloride Rt Tia 0.9% 3 Ml Nebu) 3 ml INH PRN PRN PRN Reason: SOLN Stop: 04/20/24 08:24 Valproic Acid (Valproic Acid Syrup 250 Mg/5 Ml Udc) 750 mg PO BID [facility] Stop: 05/03/24 08:59 Last Admin: 04/11/24 09:23 Dose: 750 mg Discontinued Medications Acetaminophen (Acetaminophen 325 Mg Tablet) 650 mg PO Q6H PRN PRN Reason: Fever >101.5 Stop: 04/20/24 05:18 Hydrocodone Bitart/Acetaminophen (Hydrocodone/Apap 5/325 Tablet) 1 tab PO X1 ONE Stop: 03/31/24 08:32 Last Admin: 03/31/24 09:41 Dose: 1 tab Hydrocodone Bitart/Acetaminophen (Hydrocodone/Apap 5/325 Tablet) 1 tab PO X1 ONE Stop: 04/07/24 23:59 Last Admin: 04/08/24 00:06 Dose: 1 tab Hydrocodone Bitart/Acetaminophen (Hydrocodone/Apap 5/325 Tablet) 1 tab PO Q6HR PRN PRN Reason: PAIN SCALE 4-10(Mod-Sev Stop: 04/13/24 07:20 Last Admin: 04/09/24 05:36 Dose: 1 tab Albuterol (Albuterol Rt 2.5 Mg/0.5 Ml Nebu) 2.5 mg INH X1 ONE Stop: 03/21/24 08:26 Last Admin: 03/21/24 08:39 Dose: 2.5 mg Atropine Sulfate (Atropine Sulf Inj 0.1 Mg/Ml Syr 10 Ml) 1 mg IV X1 ONE Stop: 04/11/24 05:48 Last Admin: 04/11/24 03:00 Dose: 1 mg Calcium Gluconate (Calcium Gluconate 10% Inj 1 Gm/10 Ml Vial) 1 gm IV X1 ONE Stop: 04/11/24 07:50 Dextrose (Dextrose 50%-Water Inj 50 Ml Syringe) 50 ml IV X1 ONE Stop: 03/21/24 08:23 Last Admin: 03/21/24 10:14 Dose: 50 ml Doxycycline Hyclate (Doxycycline 100 Mg Tablet) 100 mg PO BID ASHISH Stop: 04/08/24 09:29 Last Admin: 04/08/24 08:19 Dose: 100 mg Fentanyl Citrate (Fentanyl Cit Inj 50 Mcg/Ml Amp 2ml) 25 mcg IVP X1 ONE Stop: 03/21/24 14:46 Last Admin: 03/21/24 14:56 Dose: 25 mcg Fentanyl Citrate (Fentanyl Cit Inj 50 Mcg/Ml Amp 2ml) 25 mcg IV Q5M PRN PRN Reason: PAIN SCALE 4-10(Mod-Sev Stop: 04/09/24 13:30 Heparin Sodium (Beef Lung) (Heparin Sod Lock Syr 100 Unit/Ml) 500 unit STFIELD X1 ONE Stop: 03/21/24 14:46 Last Admin: 03/21/24 14:55 Dose: 500 unit Heparin Sodium (Porcine) (Heparin Sod Inj 5000 Unit/Ml Vial) 5,000 unit SC Q8HR [facility] Stop: 04/04/24 05:59 Last Admin: 03/22/24 05:52 Dose: 5,000 unit Heparin Sodium (Porcine) (Heparin Sod Inj 1000 Unit/Ml Vial) 3,700 unit INDWELLCAT X1 ONE Stop: 03/21/24 14:46 Last Admin: 03/21/24 15:05 Dose: 3,700 unit Heparin Sodium (Porcine) (Heparin Sod Inj 1000 Unit/Ml Vial 10 Ml) 3,700 unit INDWELLCAT PRN PRN PRN Reason: DIALYSIS Stop: 04/04/24 17:42 Last Admin: 03/21/24 20:09 Dose: 3,700 unit Heparin Sodium (Porcine) (Heparin Sod Inj 5000 Unit/Ml Vial) 5,000 unit SC Q12HR ASHISH Stop: 04/05/24 17:29 Last Admin: 04/05/24 08:09 Dose: 5,000 unit Hydralazine HCl (Hydralazine Inj 20 Mg/Ml Vial) 5 mg IV Q20M PRN PRN Reason: SEE COMMENTS Stop: 04/09/24 13:30 Hydromorphone HCl (Hydromorphone Inj 2 Mg/Ml Vial) 0.25 mg IVP X1 ONE Stop: 04/08/24 04:06 Last Admin: 04/08/24 04:15 Dose: 0.25 mg Hydroxyzine HCl (Hydroxyzine Hcl 25 Mg Tablet) 25 mg PO X1 ONE Stop: 04/09/24 23:41 Last Admin: 04/09/24 23:58 Dose: 25 mg Sodium Chloride (Ns) 1,000 mls @ 999 mls/hr IV .Q1H1M ONE Stop: 03/21/24 02:15 Last Infusion: 03/21/24 02:19 Dose: Infused Sodium Chloride (Ns) 1,000 mls @ 999 mls/hr IV .Q1H1M ONE Stop: 03/21/24 03:08 Last Infusion: 03/21/24 03:24 Dose: Infused Ceftriaxone Sodium/Dextrose (Rocephin/D5w 1gm Iv Premix) 50 mls @ 100 mls/hr IV X1 ONE Stop: 03/21/24 04:23 Last Infusion: 03/21/24 05:39 Dose: Infused Sodium Chloride (Ns) 500 mls @ 999 mls/hr IV .Q31M ONE Stop: 03/21/24 05:22 Last Infusion: 03/21/24 05:39 Dose: Infused Magnesium Sulfate (Magnesium Sulfate Ivpb) 2 gm in 50 mls @ 25 mls/hr IV X1 ONE Stop: 03/21/24 07:17 Last Infusion: 03/21/24 07:37 Dose: Infused Sodium Chloride (Ns) 1,000 mls @ 75 mls/hr IV .[id number] ASHISH Stop: 03/21/24 18:49 Last Admin: 03/21/24 05:37 Dose: 75 mls/hr Piperacillin/Tazobactam/Dextrose (Zosyn) 50 mls @ 12.5 mls/hr IV Q12HR ASHISH; Protocol Stop: 03/28/24 20:59 Last Admin: 03/22/24 09:20 Dose: 12.5 mls/hr Piperacillin/Tazobactam/Dextrose (Zosyn) 2.25 gm in 50 mls @ 100 mls/hr IV X1 ONE Stop: 03/21/24 05:59 Last Admin: 03/21/24 05:59 Dose: Not Given Piperacillin Sod/Tazobactam (Sod 2.25 gm/ Sodium Chloride) 50 mls @ 100 mls/hr IV X1 ONE Stop: 03/21/24 06:09 Last Infusion: 03/21/24 06:20 Dose: Infused Magnesium Sulfate (Magnesium Sulfate Ivpb) 4 gm in 50 mls @ 12.5 mls/hr IV X1 ONE Stop: 03/21/24 12:27 Last Infusion: 03/21/24 14:25 Dose: Infused Ceftriaxone Sodium/Dextrose (Rocephin/D5w 1gm Iv Premix) 50 mls @ 100 mls/hr IV QDAY [facility] Stop: 03/29/24 18:51 Last Admin: 03/27/24 11:23 Dose: 100 mls/hr Metronidazole (Flagyl 500 Mg Iv) 500 mg in 100 mls @ 100 mls/hr IV Q8HR ASHISH Stop: 03/30/24 08:59 Last Admin: 03/26/24 14:12 Dose: 100 mls/hr Sodium Chloride (Ns) 1,000 mls @ 70 mls/hr IV .[id number] ONE Stop: 03/23/24 23:37 Last Admin: 03/23/24 10:31 Dose: 70 mls/hr Sodium Chloride (Ns) 1,000 mls @ 70 mls/hr IV .[id number] ONE Stop: 03/24/24 22:54 Last Admin: 03/24/24 09:31 Dose: 70 mls/hr Magnesium Sulfate (Magnesium Sulfate Ivpb) 2 gm in 50 mls @ 25 mls/hr IV X1 ONE Stop: 03/24/24 11:04 Last Admin: 03/24/24 09:31 Dose: 25 mls/hr Magnesium Sulfate (Magnesium Sulfate Ivpb) 4 gm in 50 mls @ 12.5 mls/hr IV X1 ONE Stop: 03/26/24 12:26 Last Admin: 03/26/24 11:12 Dose: 12.5 mls/hr Lactated Ringer's (Lactated Ringers) 1,000 mls @ 999 mls/hr IV .Q1H1M ONE Stop: 03/27/24 17:42 Last Admin: 03/27/24 16:40 Dose: 999 mls/hr Piperacillin/Tazobactam/Dextrose (Zosyn) 3.375 gm in 50 mls @ 12.5 mls/hr IV Q8HR ASHISH; Protocol Stop: 04/04/24 05:59 Last Admin: 03/29/24 05:17 Dose: 12.5 mls/hr Piperacillin/Tazobactam/Dextrose (Zosyn) 3.375 gm in 50 mls @ 100 mls/hr IV X1 ONE Stop: 03/27/24 18:44 Last Admin: 03/27/24 18:34 Dose: 100 mls/hr Sodium Chloride (Ns) 1,000 mls @ 999 mls/hr IV .Q1H1M ONE Stop: 03/27/24 19:39 Last Admin: 03/27/24 19:21 Dose: 999 mls/hr Sodium Chloride (Ns) 1,000 mls @ 75 mls/hr IV .[id number] ONE Stop: 03/28/24 21:05 Last Admin: 03/29/24 07:39 Dose: Not Given Sodium Chloride (Ns 0.45%) 1,000 mls @ 75 mls/hr IV .[id number] ONE Stop: 03/28/24 22:27 Last Admin: 03/28/24 09:53 Dose: 75 mls/hr Sodium Chloride (Ns 0.45%) 1,000 mls @ 100 mls/hr IV .Q10H ONE Stop: 03/28/24 19:07 Last Infusion: 03/28/24 23:55 Dose: Infused Sodium Chloride (Ns 0.45%) 1,000 mls @ 100 mls/hr IV .Q10H ONE Stop: 03/29/24 16:50 Last Admin: 03/29/24 08:02 Dose: 100 mls/hr Magnesium Sulfate (Magnesium Sulfate Ivpb) 4 gm in 50 mls @ 12.5 mls/hr IV X1 ONE Stop: 03/31/24 11:54 Last Admin: 03/31/24 09:41 Dose: 12.5 mls/hr Piperacillin/Tazobactam/Dextrose (Zosyn) 3.375 gm in 50 mls @ 12.5 mls/hr IV Q8HR ASHISH; Protocol Stop: 04/07/24 14:29 Last Admin: 04/02/24 05:46 Dose: 12.5 mls/hr Sodium Chloride (Ns) 1,000 mls @ 60 mls/hr IV .[id number] ONE Stop: 04/03/24 02:43 Last Admin: 04/02/24 14:30 Dose: 60 mls/hr Sodium Chloride (Ns) 500 mls @ 999 mls/hr IV .Q31M ONE Stop: 04/03/24 10:31 Last Admin: 04/03/24 10:39 Dose: 999 mls/hr Sodium Chloride (Ns) 1,000 mls @ 50 mls/hr IV .Q20H ASHISH Stop: 04/06/24 05:44 Sodium Chloride (Ns) 1,000 mls @ 100 mls/hr IV .Q10H ASHISH Stop: 04/05/24 19:45 Last Admin: 04/05/24 12:26 Dose: 100 mls/hr Sodium Chloride (Ns) 500 mls @ 999 mls/hr IV .Q31M ONE Stop: 04/06/24 08:16 Last Admin: 04/06/24 09:07 Dose: 999 mls/hr Sodium Chloride (Ns) 1,000 mls @ 100 mls/hr IV .Q10H ONE Stop: 04/06/24 17:58 Last Admin: 04/06/24 10:33 Dose: Not Given Sodium Chloride (Ns) 1,000 mls @ 125 mls/hr IV .Q8H ONE Stop: 04/06/24 15:58 Last Admin: 04/06/24 13:55 Dose: 125 mls/hr Magnesium Sulfate (Magnesium Sulfate Ivpb) 2 gm in 50 mls @ 25 mls/hr IV X1 ONE Stop: 04/07/24 13:47 Last Admin: 04/07/24 11:56 Dose: 25 mls/hr Sodium Chloride (Ns) 1,000 mls @ 75 mls/hr IV .[id number] ASHISH Stop: 04/08/24 03:05 Last Admin: 04/07/24 13:53 Dose: 75 mls/hr Dextrose/Sodium Chloride (D5-Ns) 1,000 mls @ 75 mls/hr IV .[id number] ASHISH Stop: 04/09/24 09:14 Last Admin: 04/08/24 23:22 Dose: 75 mls/hr Sodium Chloride (Ns) 1,000 mls @ 50 mls/hr IV .Q20H ASHISH Stop: 04/10/24 12:33 Last Infusion: 04/10/24 16:31 Dose: Infused Potassium Chloride (Kcl Ivpb) 10 meq in 100 mls @ 100 mls/hr IV Q1H ASHISH Stop: 04/10/24 09:40 Last Infusion: 04/10/24 16:30 Dose: Infused Sodium Chloride (Ns) 1,000 mls @ 65 mls/hr IV .[id number] ASHISH Stop: 04/10/24 23:32 Last Infusion: 04/11/24 07:00 Dose: Infused Sodium Chloride (Ns) 500 mls @ 999 mls/hr IV .Q31M ONE Stop: 04/11/24 03:14 Last Infusion: 04/11/24 07:00 Dose: Infused Sodium Chloride (Ns) 500 mls @ 999 mls/hr IV .Q31M ONE Stop: 04/11/24 03:19 Last Infusion: 04/11/24 07:00 Dose: Infused Vancomycin/Sodium Chloride (Vancomycin/Ns 1 Gm Ivpb) 200 mls @ 120 mls/hr IV X1 ONE Stop: 04/11/24 07:39 Last Admin: 04/11/24 07:56 Dose: 120 mls/hr Potassium Chloride (Kcl Ivpb) 10 meq in 100 mls @ 100 mls/hr IV Q1H ASHISH Stop: 04/11/24 13:36 Insulin Human Regular (Insulin Hum Regular 1 Unit/0.01 Ml (Per Unit)) 5 unit IV X1 ONE Stop: 03/21/24 08:23 Last Admin: 03/21/24 10:13 Dose: 5 unit Levetiracetam (Levetiracetam Inj 100 Mg/Ml Vial 5ml) 1,000 mg IVP X1 ONE Stop: 03/26/24 22:04 Last Admin: 03/26/24 23:26 Dose: 1,000 mg Levetiracetam (Levetiracetam Liqd 500 Mg/5 Ml Udc) 500 mg PO BID ASHISH Stop: 04/26/24 08:59 Last Admin: 03/27/24 20:37 Dose: 500 mg Levetiracetam (Levetiracetam Inj 100 Mg/Ml Vial 5ml) 1,000 mg IVP X1 ONE Stop: 03/28/24 03:50 Last Admin: 03/28/24 03:59 Dose: 1,000 mg Levetiracetam (Levetiracetam Inj 100 Mg/Ml Vial 5ml) 750 mg IVP Q12HR ASHISH Stop: 04/27/24 08:59 Last Admin: 03/28/24 09:53 Dose: 750 mg Levetiracetam (Levetiracetam Inj 100 Mg/Ml Vial 5ml) 1,000 mg IVP Q12HR ASHISH Stop: 04/27/24 20:59 Last Admin: 03/29/24 20:23 Dose: 1,000 mg Levetiracetam (Levetiracetam Inj 100 Mg/Ml Vial 5ml) 750 mg IVP Q12HR ASHISH Stop: 04/29/24 08:59 Last Admin: 03/30/24 21:15 Dose: 750 mg Levothyroxine Sodium (Levothyroxine Sodium 125 Mcg Tablet) 137 mcg PO ACBR ASHISH Stop: 04/20/24 05:59 Levothyroxine Sodium (Levothyroxine Sodium 25 Mcg Tablet) 25 mcg PO ACBR ASHISH Stop: 04/20/24 05:59 Last Admin: 03/21/24 11:01 Dose: Not Given Lidocaine HCl (Lidocaine Inj Pf 1% 30 Ml Vial) 9 ml INFL X1 ONE Stop: 03/21/24 14:46 Last Admin: 03/21/24 14:55 Dose: 9 ml Loperamide HCl (Loperamide 2 Mg Capsule) 4 mg PO X1 ONE Stop: 03/25/24 10:38 Last Admin: 03/26/24 04:45 Dose: Not Given Loperamide HCl (Loperamide 2 Mg Capsule) 2 mg PO TID PRN PRN Reason: High output iliostomy Stop: 04/01/24 12:42 Last Admin: 03/26/24 11:12 Dose: 2 mg Loperamide HCl (Loperamide 2 Mg Capsule) 10 mg PO TID PRN PRN Reason: High output iliostomy Stop: 04/01/24 12:42 Loperamide HCl (Loperamide 2 Mg Capsule) 10 mg PO TID ASHISH Stop: 04/02/24 13:59 Last Admin: 04/02/24 05:45 Dose: 10 mg Loperamide HCl (Loperamide 2 Mg Capsule) 2 mg PO Q6HR ASHISH Stop: 04/12/24 11:59 Last Admin: 04/06/24 05:51 Dose: 2 mg Loperamide HCl (Loperamide 2 Mg Capsule) 10 mg PO TID [facility] Stop: 04/13/24 13:59 Last Admin: 04/08/24 05:02 Dose: Not Given Loperamide HCl (Loperamide 2 Mg Capsule) 8 mg PO X1 ONE Stop: 04/06/24 07:41 Last Admin: 04/06/24 09:07 Dose: 8 mg Lorazepam (Lorazepam 2 Mg/Ml Vial) 2 mg IVP X1 ONE Stop: 03/28/24 03:47 Last Admin: 03/28/24 03:59 Dose: 2 mg Lorazepam (Lorazepam 2 Mg/Ml Vial) 2 mg IVP Q15M PRN PRN Reason: ANXIETY Stop: 04/02/24 03:46 Lorazepam (Lorazepam 2 Mg/Ml Vial) 2 mg IVP Q15M PRN PRN Reason: SEIZURES Stop: 04/02/24 03:46 Lorazepam (Lorazepam 2 Mg/Ml Vial) 2 mg IVP Q15M PRN PRN Reason: seizure Magnesium Oxide (Magnesium Oxide 400 Mg Tablet) 400 mg PO QDAY [facility] Stop: 05/04/24 15:29 Last Admin: 04/09/24 08:19 Dose: Not Given Memantine (Memantine Hcl 5 Mg Tablet) 10 mg PO BID [facility] Stop: 04/20/24 20:59 Last Admin: 03/26/24 20:42 Dose: 10 mg Meperidine HCl (Meperidine Inj 50 Mg/Ml Vial) 12.5 mg IV Q5M PRN PRN Reason: SHIVERING Stop: 04/09/24 13:30 Metoprolol Tartrate (Metoprolol Tartrate 25 Mg Tablet) 25 mg PO X1 ONE Stop: 04/07/24 08:47 Last Admin: 04/07/24 08:58 Dose: Not Given Metoprolol Tartrate (Metoprolol Tartrate Inj 1 Mg/Ml Amp 5 Ml) 1 mg IVP Q5M PRN PRN Reason: TACHYCARDIA Stop: 04/09/24 13:30 Metronidazole (Metronidazole 250 Mg Tablet) 500 mg PO Q8H [facility] Stop: 03/30/24 07:59 Last Admin: 03/24/24 10:03 Dose: Not Given Metronidazole (Metronidazole 250 Mg Tablet) 500 mg PO TID [facility] Stop: 03/30/24 08:59 Last Admin: 03/27/24 14:45 Dose: 500 mg Midazolam HCl (Midazolam Inj 1 Mg/Ml Vial 2 Ml) 1 mg IV Q5M PRN PRN Reason: ANXIETY Stop: 04/09/24 13:30 Morphine Sulfate (Morphine Sulf Inj 10 Mg/Ml Vial) 2 mg IVP X1 ONE Stop: 04/01/24 11:37 Last Admin: 04/01/24 11:48 Dose: 2 mg Morphine Sulfate (Morphine Sulf Inj 10 Mg/Ml Vial) 2 mg IVP Q10M PRN PRN Reason: PAIN SCALE 4-10(Mod-Sev Stop: 04/09/24 13:30 Ondansetron HCl (Ondansetron Inj 2 Mg/Ml Inj 2 Ml) 4 mg IV X1 ONE; Protocol Stop: 03/21/24 01:16 Last Admin: 03/21/24 01:44 Dose: 4 mg Pantoprazole Sodium (Pantoprazole 40 Mg Tablet) 40 mg PO QDAY [facility] Stop: 05/07/24 11:59 Last Admin: 04/10/24 09:06 Dose: 40 mg Pantoprazole Sodium (Pantoprazole Inj 40 Mg Vial) 40 mg IVP X1 ONE Stop: 04/07/24 23:59 Last Admin: 04/08/24 00:06 Dose: 40 mg Pantoprazole Sodium (Pantoprazole Inj 40 Mg Vial) 40 mg IV X1 ONE Stop: 04/09/24 09:31 Last Admin: 04/09/24 11:40 Dose: Not Given Potassium Chloride (Potassium Chloride 20 Meq Tabcr) 40 meq PO X1 ONE Stop: 03/23/24 09:20 Last Admin: 03/23/24 10:44 Dose: Not Given Potassium Chloride (Potassium Chloride 10% 20 Meq/15 Ml Udc) 40 meq PO X1 ONE Stop: 03/23/24 10:46 Last Admin: 03/23/24 10:43 Dose: 40 meq Potassium Chloride (Potassium Chloride 20 Meq Tabcr) 40 meq PO X1 ONE Stop: 03/27/24 07:13 Last Admin: 03/27/24 11:23 Dose: 40 meq Potassium Chloride (Potassium Chloride 10% 20 Meq/15 Ml Udc) 40 meq PO X1 ONE Stop: 03/27/24 07:31 Last Admin: 03/27/24 11:22 Dose: 40 meq Potassium Phos/Sodium Phos (Naph,Kph Mbdb 1 Packet (1.5 Gm)) 1 packet PO X1 ONE Stop: 03/26/24 08:27 Last Admin: 03/26/24 11:12 Dose: 1 packet Potassium Phos/Sodium Phos (Naph,Kph Mbdb 1 Packet (1.5 Gm)) 1 packet PO X1 ONE Stop: 03/29/24 08:12 Last Admin: 03/29/24 09:29 Dose: 1 packet Potassium Phos/Sodium Phos (Naph,Kph Mbdb 1 Packet (1.5 Gm)) 1 packet PO X1 ONE Stop: 03/31/24 07:56 Last Admin: 03/31/24 09:41 Dose: 1 packet Sevelamer Carbonate (Sevelamer Carbonate 800 Mg Tablet) 800 mg PO TIDWM ASHISH Stop: 04/20/24 11:59 Last Admin: 03/24/24 10:03 Dose: Not Given Sevelamer Carbonate (Sevelamer Carbonate 0.8 Gm Packet (Non-Formulary)) 0.8 gm PO TIDWM ASHISH Stop: 04/22/24 08:59 Last Admin: 03/24/24 10:03 Dose: Not Given Sodium Polystyrene Sulfonate (Sod Polystyrene Sulfon Susp 15 Gm/60 Ml Btl) 30 gm PO X1 ONE Stop: 03/21/24 08:23 Last Admin: 03/21/24 10:12 Dose: 30 gm Tuberculin PPD (Tuberculin Ppd Inj 5 Unit/0.1 Ml Dose) 5 unit ID X1 ONE Stop: 03/21/24 20:11 Last Admin: 03/22/24 15:10 Dose: 5 unit Valproic Acid (Valproic Acid Syrup 250 Mg/5 Ml Udc) 500 mg PO HS ASHISH Stop: 04/29/24 20:59 Last Admin: 03/30/24 21:06 Dose: 500 mg Valproic Acid (Valproic Acid Syrup 250 Mg/5 Ml Udc) 500 mg PO BID ASHISH Stop: 04/30/24 08:59 Last Admin: 04/02/24 21:10 Dose: 500 mg Zolpidem Tartrate (Zolpidem 5 Mg Tablet) 5 mg PO HS [facility] Stop: 05/10/24 20:59 Last Admin: 04/10/24 21:53 Dose: 5 mg Assessment & Plan Plan 78-year-old female with past medical history of hypothyroidism, hypertension, JACKIE, asthma, depression, bipolar disorder, dementia, recurrent UTIs, and 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 1. Symptomatic sinus bradycardia 2. Intermittent Atrial Arrhythmias, A-fib vs Atrial tachycardia? 3. Hypotension ?Last night patient had a rapid response called due to sinus bradycardia and afterwards had another rapid response called due to a MAP below 60. ? Patient was given 1 L of normal saline which momentarily improved for MAP above 65 but afterwards MAP 1 below 60 again. ? Patient was started on norepinephrine to maintain a MAP of above 65 ? Patient is currently on norepinephrine at 3 mL/h ? EKG yesterday showed sinus bradycardia with first-degree AV block - Patient received a one-time dose of atropine last night ? Prior EKG on 04/09/2024 showed sinus rhythm with a heart rate was 76 and no AV block. ? Patient's has atrial arrhythmias there is with evidence of significant frequent PACs. There was evidence of atrial arrhythmias which could be A-fib versus atrial tachycardia intermittently. At this time patient is rate controlled. ? Patient is not on beta-blockers at this time given that she is on vasopressors ? Sinus Bradycardia mostly likely vasovagal secondary to postop pain and nausea vs underlying sick sinus syndrome Plan: ? Recommend to continue vasopressors for now and wean off as patient's blood pressure permits it. ? No rate control medications due to hypotension and bradycardia ? No anticoagulation at this time given possible GI bleed - Recommend repeat EKG ? Recommend aggressive repletion of the potassium and magnesium, maintain above 4 and 2 respectively, to avoid any arrhythmias. ?Will continue to monitor patient's heart rate as she has been stable in the 60s overnight. 4. MAKENZIE 5. Acute uremic encephalopathy, resolved ?Patient initially came in with altered mental status and BUN of 121 with creatinine of 9.5. ? Patient's baseline creatinine was around 1 and BUN 27 on 02/16/2024 ?Patient has been having minimal output with a total of 525 over the last 24 hours ?Recommend to follow-up with nephrology recommendations ?Continue current management as per primary care team 6. Sepsis secondary to UTI versus intra-abdominal abscess 7. E. coli UTI 8. Intra-abdominal abscess 9. 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 Patient had an I&D on 04/01/2024 by general surgery ? Patient had a ex lap with reversal ileostomy on 04/09/2024 by general surgery ?Patient is currently on Zosyn ?Recommend to continue current management as per primary care team 10. Normocytic normochromic anemia ?Patient's hemoglobin has been in the 8-9's prior to admission ? On admission patient's hemoglobin was 12.6 and has dropped to 7.2 today ? Recommend FOBT to rule out GI source of bleeding ? Could be due to blood loss from surgery versus hemodilutional versus GI bleed ? Recommend close monitoring and to transfuse if hemoglobin less than 7 ? Recommend FOBT to rule out GI source of bleeding 11. Complex partial seizures, new onset ?Patient had an episode of shakiness and blank stare on 03/26/2024 ? EEG was normal and MRI was unrevealing ?Patient currently on valproic acid ? Recommend to follow neurology recommendations 12. Pseudohyponatremia, resolved ?Patient's initial sodium was 123 with osmolality of 286 ?Continue current management as per primary care team 13. Hx of hypothyroidism 14. Hx of asthma 15. Hx of depression 16. Hx of bipolar disorder 17. Hx of dementia 18. Hx of JACKIE ?Continue current management as per primary care team Continue rest of management as per primary team. We are grateful to be able to participate in Mrs. Shell's care. Thank you for the consult Plan of care discussed with attending [employer] [employer], Dr Manuel Arce MD PGY-1 Attending Provider Attestation/Addendum I have personally seen and examined the patient separately on the above date of service and discussed the plan of care with the resident. I reviewed the resident Dr. Dey consultation progress note and agree with the resident findings and plan in the note above and have also edited the documentation to reflect my findings and plan. Sinus Bradycardia mostly likely vasovagal secondary to postop pain and nausea vs underlying sick sinus syndrome accentuated by this sepsis as well as the acidosis. Intermittent atrial rhythm is mostly secondary to the severe anemia, cardiomyopathy can underlying CAD or heart failure and valvular heart disease. Recommend to check echocardiogram to rule out of any LV dysfunction, RV dysfunction as well as evaluate the LV and RV function. Patient is on Levophed and is hemodynamically stable Avoid any beta-blockers or calcium blockers or other rate controlling drugs given the sinus bradycardia. Beta-blockers and CCB's are contraindicated given the hypotension. For the atrial arrhythmias, treat underlying cause including the anemia, sepsis or infection. Keep potassium greater than 4 magnesium greater than 2.0 at all times. There is no sustained atrial tachycardia or atrial fibrillation with RVR. Anticoagulation is contraindicated in the setting of possible GI bleed with hemoglobin drop from 12.6-7.2. Continue to monitor on telemetry. No rate control is needed until patient develops sustained tachyarrhythmia. Will follow-up with echo results. Management of rest of the medical conditions as per primary team and other consultants. Thank you for the consult and allowing me to participate in the care of the patient. Cardiology will continue to follow. Сергей Jackson M.D. Interventional Cardiology
[2024-04-11] MEDS: CALCIUM GLUCONATE 10% INJ 1 GM/10 ML VIAL IV (10:11)
[2024-04-11] MEDS: MORPHINE SULF INJ 10 MG/ML VIAL 2 MG IVP (10:51)
--- NOTE | 2024-04-11 10:52 | XR_ITS ---
Examination: CT abdomen and pelvis without contrast. Coronal 3-D reconstructions. Sagittal 2-D reconstructions. Date and time of exam:April 11, 2024 1132 hours INDICATIONS: Postop abdominal surgery with septic shock today CTDI: vol (mGy): 9.34 DLP: (mGycm): 570 Technique: Axial images of the abdomen have been obtained, 3 mm slice thickness Intravenous contrast material has not been administered. Low dose protocols were performed. One or more of the following dose reduction techniques were used; automated exposure control, adjustment of the mA and/or KV according to patient size, use of iterative reconstruction technique. Findings: Prominent vascular congestion Bibasilar pneumonia with small bilateral pleural effusions No focal liver or splenic lesion Absent gallbladder No pancreatic or adrenal mass Moderate bilateral renal parenchymal scar formation Surgical defect mid anterior abdominal wall Mild free fluid throughout the abdomen Inflammatory change in the peritoneal fat suspicious for 3.6 cm fat-containing mass in the left lower abdomen Bowel sutures Colonic diverticulosis Urinary bladder contracted around a [place] catheter Advanced degenerative disc disease L2-L3, L3-L4, L4-L5 IMPRESSION: Bibasilar pneumonia with small bilateral pleural effusions Moderate bilateral renal parenchymal scar formation Peritoneal inflammatory change consistent with peritonitis Recommend pelvic sonography to exclude 3.6 cm dermoid tumor No bowel obstruction
[2024-04-11] MEDS: POTASSIUM CHL 10 mEq IVPB 10 MEQ/100 ML BAG 100 MEQ IV ×2 (11:08→12:13)
--- NOTE | 2024-04-11 11:16 | PD.SURPROG ---
Documentation for date of: 04/11/24 Subjective Subjective Brief History: 78F with HTN, CHF, hypothyroidism who underwent right hemicolectomy with diverting ileostomy for fecal contamination 12/19, admitted in past for MAKENZIE here now with AMS and acute renal failure, planned for emergent HD. Workup shows leukocytosis and possible abdominal fluid collection PMH: HTN, CHF, hypothyroidism, bipolar disorder PSHx: Tonsillectomy, appendectomy, cholecystectomy, hysterectomy, R hemicolectomy with diverting ileostomy 12/19 for benign necrotic mass Meds: no anticoagulation Allergies: haldol, naproxen, fluoxetine Social hx: Nonsmoker Narrative: Overnight pt had [employer] for bradycardia, was found to have temp around 95F and then developed hypotension requiring norephinephrine (currently at a rate of 0.07). Pt reports pain all over which she attributes to her fibromyalgia, denies nausea at the moment but has not yet passed gas or had a BM. Wound vac with minimal output, UOP 300cc overnight Exam Vital Signs Temp Pulse Resp BP Pulse Ox O2 Del Method O2 Flow Rate 96.4 F L 68 15 144/50 H 99 Nasal Cannula 2 04/11/24 11:01 04/11/24 11:01 04/11/24 11:01 04/11/24 11:01 04/11/24 11:01 04/10/24 20:00 04/11/24 11:01 Constitutional Constitutional: mild distress Routine Respiratory Exam Respiratory: Present no resp distress Routine Abdominal Exam Abdominal: Present soft and wound (midline wound with beefy red granulation tissue, no active bleeding. Surrounding erythema is improved compared to immediately postop); Absent tenderness or distended Results Results: Laboratory Laboratory results: results reviewed Assessment & Plan Plan 78F with HTN, CHF, hypothyroidism who underwent right hemicolectomy with diverting ileostomy for fecal contamination 12/19, admitted with acute renal failure, improved from that standpoint, now s/p ileostomy reversal 04/09, transferred to ICU overnight for hypothermia, bradycardia and hypotension with finding of Hgb 6.9. On exam pt does not have signs of active bleeding or an acute intraabdominal process 2u pRBC Wound vac changed today NPO for now Appreciate ICU care Following closely Procedures Procedures Exploratory laparotomy, reversal of ileostomy
[2024-04-11] MEDS: Magnesium Sulfate 4 GM Ivpb 4 GM/50 ML BAG IV (11:22)
[2024-04-11 11:54] LABS: Procalcitonin 0.17 ng/ml (0.0-0.49); Thyroid Stimulating Hormone 11.43 uIU/mL (0.55-4.78)
--- NOTE | 2024-04-11 12:32 | PC.NURSE ---
patient in ICU room 259, tele sitter not in place at start of shift, at 1233 patient alert and oriented x4
--- NOTE | 2024-04-11 13:04 | ESPR_ITS ---
<Statement entered by Amanda Campos MD - 04/12/24 08:12> TOTAL CC TIME: 45 MIN I saw and evaluated the patient. I reviewed the resident?s note and agree with findings and plan as documented in the resident?s note. Upon my evaluation, this patient had a high probability of imminent or life- threatening deterioration due to septic shock which required my direct attention, intervention, and personal management. This time is exclusive of time spent on procedures, which are documented separately if performed. Patient seen and examined morning after transfer to ICU. Has diffuse pain everywhere including abdomen without rebound or guarding. Patient reports fibromyalgia complicating/confounding pain response. Due to exam Bedside ICU IVC evaluation and echo demonstrates normal caliber IVC, actually plethoric, left and right ventricular function normal; patient does not appear to be currently volume depleted. Doubt hemorrhagic induced shock Pending 1 unit of PRBC Repeat CT scan abdomen pelvis mentions findings of peritonitis although it is difficult to know if that is a new complication or related to her extensive past intra-abdominal problems from the original surgery Wean pressors, follow-up blood cultures and continue antibiotics Case discussed with surgeon Documentation for date of: 04/11/24 Subjective Subjective Interval history: 04/11: Overnight team reported patient hemoglobin was dropping therefore they ordered 2 units of PRBC which was given later in the morning. Patient was upgraded to ICU for septic shock requiring Levophed as patient was unable to maintain MAP greater than 65. patient is AOx3. Patient states she has fibromyalgia and is always in pain everywhere but increasing abdominal pain. Patient is status post reverse ileostomy on 04/09. Repeat CT findings were discussed with general surgery. Patient's vancomycin was DC'd due to declining renal function, currently patient is on Zosyn. Less likely hemorrhagic shock as patient is not fluid responsive on Cheetah. Currently patient is maintaining MAP of 70s. Exam Vital Signs Temp Pulse Resp BP Pulse Ox O2 Del Method O2 Flow Rate 96.5 F L 70 12 109/49 L 99 Nasal Cannula 2 04/11/24 12:01 04/11/24 12:01 04/11/24 12:01 04/11/24 12:01 04/11/24 12:01 04/11/24 12:01 04/11/24 12:01 Narrative Exam GENERAL: A&Ox3 . Awake, Not in acute distress NEURO: no focal neurological deficits HEENT: Atraumatic, Normocephalic. mucous membranes moist. Eyes open, symmetrical, & clear HEART: Normal Heart Sounds LUNGS: Clear to auscultation ABDOMEN: soft, non-distended, tenderness to palpation, Status post colon surgery with wound VAC, significant redness noted around surgical site SKIN: Erythematous skin around the area of wound vac EXTREMITIES: No edema, tenderness, able to move all 4 extremities, pedal pulses palpated Objective Labs 04/11/24 08:23 04/11/24 04:53 Labs: Laboratory Results - last 24 hr 04/09/24 04/10/24 04/11/24 08:13 15:11 03:15 WBC RBC Hgb 8.4 L Hct 26.4 L MCV MCH MCHC RDW Std Deviation Plt Count Neut % (Auto) Lymph % (Auto) [place] % (Auto) Eos % (Auto) Baso % (Auto) Neut # (Auto) Lymph # (Auto) [place] # (Auto) Eos # (Auto) Baso # (Auto) Immature Gran # (Auto) Absolute Nucleated RBC Immature Gran % Nucleated RBC % PT INR APTT Sodium 133 L Potassium 4.6 D Chloride 102 Carbon Dioxide 19.4 L Anion Gap 12 BUN 63 H Creatinine 2.3 H Estim Creat Clear Calc 17.1 L eGFR 21 L BUN/Creatinine Ratio 27 H Glucose 144 H Calculated Osmolality 287 Lactic Acid Calcium 7.6 L Corrected Calcium Phosphorus 5.3 H Magnesium 1.6 Total Bilirubin AST ALT Alkaline Phosphatase Total Protein Albumin Globulin Albumin/Globulin Ratio Procalcitonin TSH Blood Type O Negative Antibody Screen NEGATIVE Crossmatch Blood Bank Wristband ID Yes Blood Bank Comment FFP Ready 04/11/24 04/11/24 04/11/24 04:53 08:23 08:27 WBC 17.0 H RBC 2.44 L Hgb 6.9 L* 7.2 L Hct 22.3 L 23.0 L MCV 91 MCH 28.3 MCHC 30.9 L RDW Std Deviation 55.8 H Plt Count 349 D Neut % (Auto) 71 Lymph % (Auto) 20 [place] % (Auto) 6 Eos % (Auto) 1 Baso % (Auto) 0 Neut # (Auto) 12.1 H Lymph # (Auto) 3.4 [place] # (Auto) 1.0 H Eos # (Auto) 0.1 Baso # (Auto) 0.0 Immature Gran # (Auto) 0.38 H Absolute Nucleated RBC 0.00 Immature Gran % 2 H Nucleated RBC % 0 PT 20.3 H D INR 1.9 H APTT 46.0 H D Sodium 135 L Potassium 3.6 D Chloride 102 Carbon Dioxide 21.7 Anion Gap 11 BUN 61 H Creatinine 2.2 H Estim Creat Clear Calc 17.9 L eGFR 22 L BUN/Creatinine Ratio 28 H Glucose 91 D Calculated Osmolality 287 Lactic Acid 1.2 Calcium 7.7 L Corrected Calcium 8.9 Phosphorus 5.1 Magnesium 1.4 L Total Bilirubin 0.3 AST 32 ALT 21 Alkaline Phosphatase 418 H Total Protein 4.9 L Albumin 2.5 L D Globulin 2.4 Albumin/Globulin Ratio 1.0 L Procalcitonin 0.17 TSH 11.43 H D Blood Type O Negative Antibody Screen NEGATIVE Crossmatch See Detail Blood Bank Wristband ID Yes Blood Bank Comment ABG Interpretation ABG results: 03/21/24 05:40 ABG pH 7.35 ABG pCO2 41 ABG pO2 121 H ABG HCO3 23 ABG O2 Saturation 99 H ABG Base Excess -3 Quality Measures Quality Measures VTE prophylaxis and sepsis Current suspected stage: sepsis Possible source: skin/soft tissue Blood cultures ordered: yes Antibiotic ordered: Yes Advance care planning discussed with:: patient Assessment & Plan Assessment Current Active Medications: Generic Name Dose Route Start Last Admin Trade Name Freq PRN Reason Stop Dose Admin Albuterol/Ipratropium 3 ml 03/21/24 15:51 Albuterol/Ipratropium (Duoneb) Rt Tia 3 Ml Nebu INH 04/20/24 18:59 Q4HRRT PRN Shortness of breath Atropine Sulfate 0.5 mg 04/11/24 07:36 Atropine Sulf Inj 0.1 Mg/Ml Syr 10 Ml IVP Q5MIN PRN HR <40 Dextrose 25 ml 03/31/24 09:56 Dextrose 50%-Water Inj 50 Ml Syringe IV 04/30/24 09:55 Q15MIN PRN BG 50-70 responsive npo pt Dextrose 50 ml 03/31/24 09:56 04/11/24 02:15 Dextrose 50%-Water Inj 50 Ml Syringe IV 04/30/24 09:55 50 ml Q15MIN PRN Administration BG <50 OR BG <70 & pt unresponsive Diphenhydramine HCl 25 mg 04/09/24 00:50 04/10/24 10:25 Diphenhydramine Inj 50 Mg/Ml Vial IV 05/09/24 00:49 25 mg Q6HR PRN Administration ITCHING Donepezil HCl 10 mg 03/21/24 21:00 04/10/24 21:53 Donepezil Hcl 5 Mg Tablet PO 04/20/24 20:59 10 mg HS ASHISH Administration Gabapentin 100 mg 04/10/24 14:00 04/11/24 05:35 Gabapentin 100 Mg Capsule PO 05/10/24 13:59 100 mg TID ASHISH Administration Glucagon 1 mg 03/31/24 09:56 Glucagon Inj 1 Mg Vial IM Q15MIN PRN BG <70, and no IV access Hydralazine HCl 10 mg 03/21/24 15:45 Hydralazine Hcl 10 Mg Tablet PO 04/20/24 17:59 Q6HR PRN SBP>160 Albumin Human 25 gm in 100 mls @ 100 mls/min 03/21/24 10:54 Albuminar-25 Ivpb IV PRN PRN DIALYSIS Sodium Chloride 1,000 mls @ 65 mls/hr 04/11/24 00:45 04/11/24 07:00 Ns IV 04/11/24 16:08 0 mls/hr .[id number] ASHISH Infusion Norepinephrine Bitartrate 16 mg in 250 mls @ 2.977 mls/hr 04/11/24 03:30 04/11/24 12:00 Levophed In Ns 16mg/250ml IV 05/11/24 03:29 0.07 mcg/kg/min .Q24H PRN 4.167 mls/hr PER PROTOCOL Titration Protocol 0.05 MCG/KG/MIN Piperacillin Sod/Tazobactam 100 mls @ 25 mls/hr 04/11/24 21:00 Sod 3.375 gm/ Sodium Chloride IV 04/18/24 20:59 Q12HR ASHISH Magnesium Sulfate 4 gm in 50 mls @ 12.5 mls/hr 04/11/24 09:37 04/11/24 11:22 Magnesium Sulfate Ivpb IV 04/11/24 13:36 12.5 mls/hr X1 ONE Administration Acetaminophen 1,000 mg in 100 mls @ 250 mls/hr 04/11/24 12:11 Ofirmev Inj IV 04/12/24 06:23 Q6HR PRN abdominal pain Levothyroxine Sodium 112 mcg/ 137 mcg 03/21/24 07:30 04/11/24 05:36 Levothyroxine Sodium 25 mcg PO 04/20/24 07:29 137 mcg ACBR ASHISH Administration Morphine Sulfate 0 mg 04/09/24 12:22 04/11/24 10:52 Morphine Sulf 1 Mg/Ml Church Musician Syringe 30 Ml ETL APPLICATION DEVELOPER 04/14/24 12:21 Not Given PER ORDER ASHISH Protocol Ondansetron HCl 4 mg 03/21/24 06:08 04/08/24 20:53 Ondansetron Inj 2 Mg/Ml Inj 2 Ml IV 04/20/24 06:07 4 mg Q6H PRN Administration NAUSEA OR VOMITING Protocol Pantoprazole Sodium 40 mg 04/11/24 09:15 04/11/24 09:23 Pantoprazole Inj 40 Mg Vial IVP 05/11/24 09:14 40 mg QDAY ASHISH Administration Sodium Chloride 3 ml 03/21/24 08:25 Sodium Chloride Rt Tia 0.9% 3 Ml Nebu INH 04/20/24 08:24 PRN PRN SOLN Valproic Acid 750 mg 04/03/24 09:00 04/11/24 09:23 Valproic Acid Syrup 250 Mg/5 Ml Udc PO 05/03/24 08:59 750 mg BID ASHISH Administration Plan Ms. Shell is a 78-year-old female with a past medical history significant for hypothyroidism, hypertension, JACKIE, asthma, depression, bipolar disorder, dementia, recurrent UTI, previous right hemicolectomy withdiverting ileostomy and later recent reversal of ileostomy on 04/09/2024 presented initially with altered mental status and nausea and vomiting and admitted for acute uremic encephalopathy and MAKENZIE as well as sepsis secondary to UTI versus intra-abdominal abscess as seen on CT imaging. ICU was consulted on 04/11/24 for further management of undifferentiated shock vs symptomatic bradycardia. NEURO #New onset seizures #Complex partial seizures -Suspicion of seizures marked by bilateral tremors. -Teleneuro was consulted. CT head and CTA negative for any acute findings. -New onset of seizures could have resulted from abrupt discontinuation of Depakote (patient was taking 250 Mg for hx bipolar disorder) -Neurology suspected complex partial seizures and recommended increasing valproate dose in place of Keppra due to better side effect profile. -Valproic 750mg twice daily -Seizure precautions #Acute metabolic encephalopathy - resolved #Chronic insomnia ? Held home Ambien 5 mg nightly CARDIO # Undifferentiated shock -DDx: More likely septic shock less likely hemorrhagic shock -high suspicion of septic shock because of sudden rise in WBC, fever and abdominal pain -Less likely hemorrhagic shock as cheetah show pt is not fluid responsive -Patient presented with hypotension, lethargy, and hypothermic, with qSOFA 1. -Fluid resuscitation of 1L given during rapid response. -Labs significant for leukoycytosis and low Hgb of 7.2, patient received 2 units of pRBCs -Started IV Zosyn 04/11- -DC vancomycin due to patient's renal function -Pending blood cultures -Lactic acid 1.2 -Continue with Levophed (current rate 0.07)for pressure support to keep MAP greater than 65 for adequate organ perfusion -Goal is to wean off Levophed #Symptomatic bradycardia -Patient had a RR for symptomatic bradycardia in the low 40s. EKG after Amp of D50 showed sinus bradycardia in the 50s. Repeat RR showed HR dropped back down to the low 40s, and patient appeared more lethargic. -Today 04/11 HR is 60's -Pt was given Atropine x 1 on 04/10 -Order repeat EKG -cardiology consulted and Dr. An following #History of hypertension- chronic -Patient has a longstanding hypertension on both metoprolol and hydralazine. 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 Flynn. -Patient had incision and drainage done 04/[address] Flynn, wound was irrigated with saline and packed, without complications -Patient underwent reverse ileostomy and wound VAC on 04/09/2024 -Due to possible colostomy leakage/malfunction/complications, patient had 3 admissions since the procedure, and reversal of ileostomy was performed 04/09/24. Patient has not had bowel movement since 04/08/24. ?Wound VAC, Dr. Flynn, Gen surg following ?Clear liquid diet currently, advance as tolerated ?Pain control as needed, however discontinued Morphine ETL APPLICATION DEVELOPER d/t patient's hypotension and lethargy ?Continue wound care ?Continue to monitor CMP ?Registered dietary and physical therapy, appreciate recs -Continue with q1 temperature checks, keep patient on bear hugger and warm blankets -Repeat CT from 04/11/2024 findings discussed with general surgery, there is no concerns on their end # Acute blood loss anemia -Differential diagnosis: Possible leakage of blood from recent surgery -Hemoglobin was 6.9 and hematocrit 22 -Patient is given 2 units of pRBCs RENAL #MAKENZIE Differential diagnosis: Prerenal versus possible ischemic ATN -Patient more likely have prerenal MAKENZIE in the setting of poor oral intake. -Patient has not been consuming 100% of meals. -Creatinine today 2.2 -Will be gentle on fluids as patient is tolerating p.o. -Per nephro recs, no more fluids needed -Continue to monitor daily CMP -Avoid nephrotoxins -Renally dose medications -Avoid diuretics and NSAIDs -[employer], Dr. Lacey padilla, appreciate recs #Electrolyte imbalances #Hyperphosphatemia -resolved Urgent dialysis indicated on admission, patient had temporary catheter placement. Holding dialysis for now because renal function is improving Plan: -[employer] T[employer] Dr. Lacey padilla,recommends to treat elevated Phos after patient starts tolerating advanced diet -Continue to monitor CMP HEME #Normocytic anemia #Acute blood loss Patient presented with a low hemoglobin/hematocrit of 6.9/22.3. -Continue to monitor serial H&H -Transfuse if hemoglobin is less than 7 -Goal hemoglobin is greater than 8 -Ordered 2upRBC, repeat H&H, Type and screen #Leukocytosis Initial WBC elevated at 17. Secondary to septic shock from possible infection. -Continue to monitor daily CBC -Blood cultures pending ENDO #History of hypothyroidism Patient has a history of hypothyroidism. She takes levothyroxine at home. -TSH 11.43 -Free T4 ordered for tomorrow ?Levothyroxine 137 mcg before breakfast ID #E.Coli UTI #History of recurrent UTI Patient initially reported dysuria and cloudy urine on admission. CT A/P 03/31: Fluid collection 5.4 x 4.0 x 2.2 cm in subcutaneous fatty tissue anterior pelvic wall, differentials include abcess and hematoma -Urine cultures positive for E. coli, pansensitive on 03/21 -Completed 1 week course of doxycycline and IV Zosyn from 03/21-04/02) -IV Zosyn (03/21-04/02) MSK No active issues SKIN No active issues PYSCH #History of Bipolar Patient takes home Valproic acid. -Resumed Valproic acid, but increased dosage d/t new finding of complex partial seizures Health Maintenance: DVT prophylaxis: SCDs GI prophylaxis: PPI QD Diet: CLD [place]: Yes Lines: Central line in RIJ CODE STATUS: FULL Assessment and plan discussed with my attending physician Dr. Andres Bustamante (PGY-1)- Internal medicine resident
--- NOTE | 2024-04-11 13:13 | PC.NURSE ---
Dr. Bustamante made aware of patient hourly output
--- NOTE | 2024-04-11 13:25 | CHAP ---
09:30 AM Visited by spiritual care volunteer Provided prayer for Patient.
--- NOTE | 2024-04-11 17:36 | PC.NURSE ---
confirmed with Dr. Bustamante, transfuse 2 PRBCs, transfusion complete
--- NOTE | 2024-04-11 18:40 | EKG_ITS ---
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
--- NOTE | 2024-04-11 18:48 | PC.NURSE ---
Dr. Bustamante notified of SCD machine unavailable
[2024-04-11] MEDS: DONEPEZIL HCL 5 MG TABLET 10 MG PO (21:28)
[2024-04-11] MEDS: PIPER/TAZO INJ 3.375 GM in SODIUM CHLORIDE 0.9% (P) 100 ML IV (21:29)
[2024-04-12] VITALS (53 sets, daily range): BP systolic 84–161; BP diastolic 40–86; PULSE 56–92; RESP 7–95; TEMP 36.1–36.4; O2SAT 88–100
--- NOTE | 2024-04-12 00:10 | ECHO_ITS ---
Transthoracic Echo Report Ht (in): 64 Wt (lb): 139 Exam Location: Portable Status: Inpatient Social Worker School: [employer] Indications: Procedure Performed: BP: 142 / 55 HR: 70 Rhythm: Sinus Technical Quality: Fair MEASUREMENTS (Male / Female) Normal Values 2D ECHO LV Diastolic Diameter PLAX 4.0 cm 4.2 - 5.9 / 3.9 - 5.3 cm LV Systolic Diameter PLAX 2.5 cm IVS Diastolic Thickness 1.1 cm 0.6 - 1.0 / 0.6 - 0.9 cm LVPW Diastolic Thickness 0.9 cm 0.6 - 1.0 / 0.6 - 0.9 cm LV Relative Wall Thickness 0.5 LVOT Diameter 1.7 cm LA Volume Index 31.0 cm?/m? 16 - 28 cm?/m? Ascending Aorta Diameter 2.7 cm M-MODE Aortic Root Diameter MM 2.5 cm LA Systolic Diameter MM 2.7 cm LA Ao Ratio MM 1.1 AV Cusp Separation MM 1.8 cm DOPPLER AV Peak Velocity 132.0 cm/s AV Peak Gradient 7.0 mmHg AV Mean Gradient 4.0 mmHg AV Velocity Time Integral 30.4 cm LVOT Peak Velocity 89.4 cm/s LVOT Peak Gradient 3.2 mmHg LVOT Velocity Time Integral 19.8 cm LVOT Cardiac Index 1855.5 cm?/min?m? AV Area Cont Eq vti 1.5 cm? AV Area Cont Eq pk 1.5 cm? MV Peak Velocity 125.0 cm/s MV Peak Gradient 6.3 mmHg MV Mean Velocity 78.7 cm/s MV Mean Gradient 3.0 mmHg MV Area PHT 3.8 cm? Mitral E Point Velocity 82.9 cm/s Mitral A Point Velocity 98.0 cm/s Mitral E to A Ratio 0.8 LV E' Lateral Velocity 4.7 cm/s Mitral E to LV E' Lateral Ratio 17.7 LV E' Septal Velocity 5.1 cm/s Mitral E to LV E' Septal Ratio 16.2 TR Peak Velocity 232.0 cm/s TR Peak Gradient 21.5 mmHg FINDINGS Left Ventricle Normal left ventricular size, wall thickness, systolic function with no obvious regional wall motion abnormalities. The ejection fraction is visually estimated at 65-70%. Right Ventricle The right ventricle is normal in size and systolic function. The estimated right ventricular systoli c pressure, 27mmHg. RAP 5. Left Atrium The left atrium is normal by two-dimensional, color flow and Doppler imaging with no structural abnormalities, no thrombus formation present. Right Atrium The right atrium is normal by two-dimensional imaging, color flow and Doppler imaging with no struct ural abnormalities, no thrombus formation present. Atrial Septum The interatrial septum appears normal with no evidence of a shunt. Aorta The aorta is normal by two-dimensional, color flow and Doppler interrogation. Mitral Valve The mitral valve is normal by two-dimensional, color flow and Doppler interrogation. There is trace mitral valve regurgitation. Aortic Valve The aortic valve is trileaflet. Mild sclerosis without stenosis. There is no significant aortic narciso ve regurgitation. Tricuspid Valve The tricuspid valve is normal by two-dimensional, color flow and Doppler interrogation. There is mi ld tricuspid valve regurgitation. Pulmonic Valve There is trace pulmonic valve regurgitation. Vessels The pulmonary artery appears normal. The inferior vena cava pulmonary and hepatic veins appear antonina l. Pericardium The pericardium is normal by two-dimensional imaging. There is no significant pericardial effusion. CONCLUSIONS Indication: Bradycardia/Arrhythymia Normal LV size and function. Grade I diastolic dysfunction. Estimated EF 65-70% Normal RV size and function. Trace MR, PI, Mild TR. Mild AV sclerosis without stenosis. Сергей Anumanlisaa (Electronically Signed) Final Date: 12 April 2024 15:05
[2024-04-12] MEDS: LEVOTHYROXINE SODIUM 112 MCG, LEVOTHYROXINE SODIUM 25 MCG 137 MCG PO (05:37)
[2024-04-12] MEDS: GABAPENTIN 100 MG CAPSULE PO ×3 (05:37→20:55)
[2024-04-12 05:51] LABS: Basophils # (Auto) 0.1 Thou/mm3 (0.0-0.2); Basophils % (Auto) 1 % (0-2.5); Eosinophils # (Auto) 0.1 Thou/mm3 (0.0-0.5); Eosinophils % (Auto) 1 % (0-10); Hematocrit 33.6 % (36.0-46.0); Hemoglobin 11.2 g/dL (12.0-16.0); Immature Granulocytes % (Auto) 5 % (0-0); Immature Granulocytes Auto 0.79 Thou/mm3 (0.00-0.00); Lymphocytes # (Auto) 2.1 Thou/mm3 (1.0-4.8); Lymphocytes % (Auto) 13 % (10-50); Mean Corpuscular HGB Conc 33.3 g/dl (31.0-37.0); Mean Corpuscular Hemoglobin 28.6 pg (25.0-35.0); Mean Corpuscular Volume 86 fL (80-100); Monocytes % (Auto) 7 % (0-12); Neutrophils # (Auto) 11.7 Thou/mm3 (1.8-7.7); Neutrophils % (Auto) 74 % (37-80); Nucleated Red Blood Cell % 0 /100 WBC (0); Platelet Count 284 Thou/mm3 (140-440); RDW Standard Deviation 53.5 fL (36.4-46.3); Red Blood Count 3.91 Miln/mm3 (4.00-5.20); White Blood Count 15.8 Thou/mm3 (3.6-11.0)
[2024-04-12 06:04] LABS: Partial Thromboplastin Time 48.7 Seconds (22.0-36.0)
[2024-04-12 06:38] LABS: Alanine Aminotransferase 24 U/L (10-49); Albumin, Serum 2.7 gm/dL (3.4-4.8); Alkaline Phosphatase 489 U/L (46-116); Anion Gap 10 (7-16); Aspartate Amino Transferase 24 U/L (0-34); BUN/Creatinine Ratio 30 Ratio (12-20); Bilirubin,Total 0.7 mg/dL (0.3-1.2); Blood Urea Nitrogen 57 mg/dL (9-23); Calcium 8.4 mg/dL (8.3-10.6); Calcium (Corrected) 9.4 mg/dL (8.5-10.1); Carbon Dioxide 22.5 mMol/L (20.0-31.0); Chloride 105 mMol/L (98-107); Creatinine (Component) 1.9 mg/dL (0.6-1.3); Estimated Creatinine Clearance 24.1 mL/min (>60); Free T4 (Free Thyroxine) 1.06 ng/dL (0.89-1.76); Globulin 2.7 gm/dL (2.3-3.5); Glucose 67 mg/dL (74-106); Magnesium 2.4 mg/dL (1.6-2.6); Osmolality,Calculated 287 (275-295); Phosphorous 3.9 mg/dL (2.4-5.1); Potassium 3.8 mMol/L (3.4-5.1); Sodium 137 mMol/L (136-145); Total Protein 5.4 gm/dL (5.7-8.2); eGFR 27 See Note
[2024-04-12] MEDS: PANTOPRAZOLE INJ 40 MG VIAL IVP (09:00)
[2024-04-12] MEDS: VALPROIC ACID SYRUP 250 MG/5 ML UDC 750 MG PO ×2 (09:01→20:55)
--- NOTE | 2024-04-12 09:05 | PD.RESPRO ---
Documentation for date of: 04/12/24 Subjective Subjective Interval history: Patient was seen and examined at bedside this morning. Overnight patient's heart rate dropped to 46, but mainly maintained in the 60s to 80s. Patient today was a lot more awake and alert was able to answer all questions. Patient had an echo ordered as well as an EKG, will follow-up on results. Patient is currently off of vasopressors Patient has good chronotropic response Patient does not have any cardiac complaints at this time Potassium 3.8 and magnesium 2.4, recommend to aggressively replete potassium magnesium to keep above 4 and 2 respectively Recommend to avoid any beta-blockers, calcium channel blockers, or any other rate controlling drugs given patient's sinus bradycardia. Exam Vital Signs Temp Pulse Resp BP Pulse Ox O2 Del Method O2 Flow Rate 97.0 F 72 18 142/55 H 95 Nasal Cannula 1 04/12/24 04:00 04/12/24 08:27 04/12/24 08:27 04/12/24 07:15 04/12/24 08:27 04/11/24 16:00 04/11/24 18:11 Narrative Exam General: A/O x3, more alert and awake today and able to answer questions appropriately Eyes: Patient's pupils are still sluggish. EOMI, patient grossly intact Ears: no visible ear discharge, Hearing grossly intact. Nose: No visible nasal discharge. Mouth/Throat: Dry mucous membranes, no redness, no lesions. Neck: Neck supple, non-tender, no cervical lymphadenopathy. Lungs: Clear MYRNA to auscultation and percussion, No accessory muscle use. Cardio: Normal S1/S2, regular rhythm, no murmurs, no JVD Abdomen: Soft, mild tenderness to palpation around wound VAC, no palpable masses, peristalsis present, no guarding or rebound. Wound VAC in place, with some erythema surrounding, but draining well Extremities: Symmetrical, no significant deformities, trace edema , non-tender, peripheral pulses presents. Skin: No rashes, no lesions, warm to touch. Neuro: Patient was able to move all extremities. She is a lot more awake and responsive today. Was able to follow commands and answer all questions appropriately. Objective Labs 04/12/24 05:21 04/12/24 05:21 Labs: Laboratory Results - last 24 hr 04/09/24 04/11/24 04/11/24 08:13 08:23 08:27 WBC RBC Hgb Hct MCV MCH MCHC RDW Std Deviation Plt Count Neut % (Auto) Lymph % (Auto) Orange % (Auto) Eos % (Auto) Baso % (Auto) Neut # (Auto) Lymph # (Auto) Orange # (Auto) Eos # (Auto) Baso # (Auto) Immature Gran # (Auto) Absolute Nucleated RBC Immature Gran % Nucleated RBC % APTT Sodium Potassium Chloride Carbon Dioxide Anion Gap BUN Creatinine Estim Creat Clear Calc eGFR BUN/Creatinine Ratio Glucose Calculated Osmolality Calcium Corrected Calcium Phosphorus Magnesium Total Bilirubin AST ALT Alkaline Phosphatase Total Protein Albumin Globulin Albumin/Globulin Ratio Procalcitonin 0.17 TSH 11.43 H D Free T4 Blood Type O Negative O Negative Antibody Screen NEGATIVE NEGATIVE Crossmatch See Detail Blood Bank Wristband ID Yes Yes Blood Bank Comment FFP Ready 04/12/24 05:21 WBC 15.8 H RBC 3.91 L Hgb 11.2 L D Hct 33.6 L D MCV 86 MCH 28.6 MCHC 33.3 RDW Std Deviation 53.5 H Plt Count 284 D Neut % (Auto) 74 Lymph % (Auto) 13 Orange % (Auto) 7 Eos % (Auto) 1 Baso % (Auto) 1 Neut # (Auto) 11.7 H Lymph # (Auto) 2.1 Orange # (Auto) 1.0 H Eos # (Auto) 0.1 Baso # (Auto) 0.1 Immature Gran # (Auto) 0.79 H Absolute Nucleated RBC 0.00 Immature Gran % 5 H Nucleated RBC % 0 APTT 48.7 H Sodium 137 Potassium 3.8 Chloride 105 Carbon Dioxide 22.5 Anion Gap 10 BUN 57 H Creatinine 1.9 H Estim Creat Clear Calc 24.1 L eGFR 27 L BUN/Creatinine Ratio 30 H Glucose 67 L Calculated Osmolality 287 Calcium 8.4 Corrected Calcium 9.4 Phosphorus 3.9 Magnesium 2.4 Total Bilirubin 0.7 AST 24 ALT 24 Alkaline Phosphatase 489 H D Total Protein 5.4 L Albumin 2.7 L Globulin 2.7 Albumin/Globulin Ratio 1.0 L Procalcitonin TSH Free T4 1.06 Blood Type Antibody Screen Crossmatch Blood Bank Wristband ID Blood Bank Comment ABG Interpretation ABG results: 03/21/24 05:40 ABG pH 7.35 ABG pCO2 41 ABG pO2 121 H ABG HCO3 23 ABG O2 Saturation 99 H ABG Base Excess -3 Quality Measures Quality Measures VTE prophylaxis and sepsis Current suspected stage: sepsis Possible source: skin/soft tissue Blood cultures ordered: yes Antibiotic ordered: Yes Advance care planning discussed with:: patient Assessment & Plan Assessment Current Active Medications: Generic Name Dose Route Start Last Admin Trade Name Freq PRN Reason Stop Dose Admin Acetaminophen 650 mg 04/12/24 08:33 Acetaminophen 325 Mg Tablet PO 05/12/24 08:32 Q4HR PRN Fever >101 and abdominal pain Albuterol/Ipratropium 3 ml 03/21/24 15:51 Albuterol/Ipratropium (Duoneb) Rt Tia 3 Ml Nebu INH 04/20/24 18:59 Q4HRRT PRN Shortness of breath Diphenhydramine HCl 25 mg 04/09/24 00:50 04/10/24 10:25 Diphenhydramine Inj 50 Mg/Ml Vial IV 05/09/24 00:49 25 mg Q6HR PRN Administration ITCHING Donepezil HCl 10 mg 03/21/24 21:00 04/11/24 21:28 Donepezil Hcl 5 Mg Tablet PO 04/20/24 20:59 10 mg HS ASHISH Administration Gabapentin 100 mg 04/10/24 14:00 04/12/24 05:37 Gabapentin 100 Mg Capsule PO 05/10/24 13:59 100 mg TID ASHISH Administration Hydralazine HCl 10 mg 03/21/24 15:45 Hydralazine Hcl 10 Mg Tablet PO 04/20/24 17:59 Q6HR PRN SBP>160 Albumin Human 25 gm in 100 mls @ 100 mls/min 03/21/24 10:54 Albuminar-25 Ivpb IV PRN PRN DIALYSIS Piperacillin/Tazobactam/Dextrose 50 mls @ 12.5 mls/hr 04/12/24 09:00 Zosyn IV 04/18/24 20:59 Q12HR ASHISH Levothyroxine Sodium 112 mcg/ 137 mcg 03/21/24 07:30 04/12/24 05:37 Levothyroxine Sodium 25 mcg PO 04/20/24 07:29 137 mcg ACBR ASHISH Administration Morphine Sulfate 0 mg 04/09/24 12:22 04/11/24 10:52 Morphine Sulf 1 Mg/Ml Fire Hose Curer Syringe 30 Ml VENTILATOR SPECIALIST 04/14/24 12:21 Not Given PER ORDER [facility] Protocol Ondansetron HCl 4 mg 03/21/24 06:08 04/08/24 20:53 Ondansetron Inj 2 Mg/Ml Inj 2 Ml IV 04/20/24 06:07 4 mg Q6H PRN Administration NAUSEA OR VOMITING Protocol Pantoprazole Sodium 40 mg 04/11/24 09:15 04/12/24 09:00 Pantoprazole Inj 40 Mg Vial IVP 05/11/24 09:14 40 mg QDAY ASHISH Administration Sodium Chloride 3 ml 03/21/24 08:25 Sodium Chloride Rt Tia 0.9% 3 Ml Nebu INH 04/20/24 08:24 PRN PRN SOLN Valproic Acid 750 mg 04/03/24 09:00 04/12/24 09:01 Valproic Acid Syrup 250 Mg/5 Ml Udc PO 05/03/24 08:59 750 mg BID ASHISH Administration Plan 78-year-old female with past medical history of hypothyroidism, hypertension, JACKIE, asthma, depression, bipolar disorder, dementia, recurrent UTIs, and 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 1. Symptomatic sinus bradycardia 2. Intermittent Atrial Arrhythmias, A-fib vs Atrial tachycardia? 3. Hypotension ? Sinus Bradycardia mostly likely vasovagal secondary to postop pain and nausea vs underlying sick sinus syndrome ? Patient's has atrial arrhythmias there is with evidence of significant frequent PACs. There was evidence of atrial arrhythmias which could be A-fib versus atrial tachycardia intermittently. At this time patient is rate controlled. ? Patient is currently off pressors and has good chronotropic response ? EKG yesterday showed sinus bradycardia with first-degree AV block ? Prior EKG on 04/09/2024 showed sinus rhythm with a heart rate was 76 and no AV block. ? Patient is not on beta-blockers at this time given her bradycardia Plan: ? No rate control medications including CCB or Beta blockers due to hypotension and bradycardia ? No anticoagulation at this time given possible GI bleed - Recommend repeat EKG and echo, will follow-up on results. ? Recommend aggressive repletion of the potassium and magnesium, maintain above 4 and 2 respectively, to avoid any arrhythmias. ?Will continue to monitor patient's heart rate as she has been stable in the 60s overnight. 4. MAKENZIE 5. Acute uremic encephalopathy, resolved ?Patient initially came in with altered mental status and BUN of 121 with creatinine of 9.5. ? Patient's baseline creatinine was around 1 and BUN 27 on 02/16/2024 ?Recommend to follow-up with nephrology recommendations ?Continue current management as per primary care team 6. Sepsis secondary to UTI versus intra-abdominal abscess 7. E. coli UTI 8. Intra-abdominal abscess 9. 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 Patient had an I&D on 04/01/2024 by general surgery ? Patient had a ex lap with reversal ileostomy on 04/09/2024 by general surgery ?Patient is currently on Zosyn ?Recommend to continue current management as per primary care team 10. Normocytic normochromic anemia ?Patient's hemoglobin has been in the 8-9's prior to admission ? On admission patient's hemoglobin was 12.6 and has dropped to 7.2 today ? Recommend FOBT to rule out GI source of bleeding ? Could be due to blood loss from surgery versus hemodilutional versus GI bleed ? Recommend close monitoring and to transfuse if hemoglobin less than 7 11. Complex partial seizures, new onset ?Patient had an episode of shakiness and blank stare on 03/26/2024 ? EEG was normal and MRI was unrevealing ?Patient currently on valproic acid ? Recommend to follow neurology recommendations 12. Pseudohyponatremia, resolved ?Patient's initial sodium was 123 with osmolality of 286 ?Continue current management as per primary care team 13. Hx of hypothyroidism 14. Hx of asthma 15. Hx of depression 16. Hx of bipolar disorder 17. Hx of dementia 18. Hx of JACKIE ?Continue current management as per primary care team Continue rest of management as per primary team. We are grateful to be able to participate in Mrs. Shell's care. Thank you for the consult Plan of care discussed with attending Photographic Equipment Inspector, Dr Manuel Arce, MD PGY-1 Attending Provider Attestation/Addendum I have personally seen and examined the patient separately on the above date of service and discussed the plan of care with the resident. I reviewed the resident Dr. Dey consultation progress note and agree with the resident findings and plan in the note above and have also edited the documentation to reflect my findings and plan. Сергей Jackson M.D. Interventional Cardiology
[2024-04-12] MEDS: PIPER/TAZO 3.375 GM 50 ML IV ×2 (11:33→20:55)
--- NOTE | 2024-04-12 11:39 | ESPR_ITS ---
<Statement entered by Amanda Campos MD - 04/16/24 08:36> TOTAL TIME: 45MINUTES ON DIRECT MEDICAL CARE, MANAGEMENT - COORDINATION AND COUNSELING > 50% OF TOTAL TIME I saw and evaluated the patient. I reviewed the resident?s note and agree with findings and plan as documented in the resident?s note. Glad to see Mrs. Shell has improved - she is off pressors - more awake and alert - and complaining less of generalized pain including abd pain. No fevers - no setbacks I'm still quite concerned that a cause for her acute septic presentation (leukocytosis/hypothermia/etc) was not clearly diagnosed with a source. I suspect it's intra-abdominal post ileostomy take down and re-anastamosis (perhaps transient bacterial translocation) She no longer requires ICU level of care - and continued close monitoring / serial exams will be required and antibiotics Documentation for date of: 04/12/24 Subjective Subjective Interval history: 04/11: Overnight team reported patient hemoglobin was dropping therefore they ordered 2 units of PRBC which was given later in the morning. Patient was upgraded to ICU for septic shock requiring Levophed as patient was unable to maintain MAP greater than 65. patient is AOx3. Patient states she has fibromyalgia and is always in pain everywhere but increasing abdominal pain. Patient is status post reverse ileostomy on 04/09. Repeat CT findings were discussed with general surgery. Patient's vancomycin was DC'd due to declining renal function, currently patient is on Zosyn. Less likely hemorrhagic shock as patient is not fluid responsive on [place]. Currently patient is maintaining MAP of 70s. 04/12: no over night events. Pt is seen and examined at bedside. Pt. is AOx3, pt is able to hold conversation, denies SOB and endorses mild abdominal patient. Pt's bradycardia has improved currently maintaining HR above 60 and MAP above 100, therefore Pt is off of levophed. Pt is s/p 2 units of pRBC on 04/11 and this morning Hgb is 11.2. Pt's TSH is 11.43 and free T4 1.06, will increase levothyroxine to 175 mcg. Pt's last bowel movement was Apr 08 and per general surgery recommendation (Dr. Flynn) pt. may be started on colase once daily, avoid other types of laxatives and enemas as pt is s/p abdominal surgery as well as avoid opioids for pain control. Currently Pt's leukocytosis is downtrending and remains afebrile. Pt is hemodynamically and clinically stable to be downgraded to telemetry. Pt. pulled her central line out, no signs of hematoma noted. Signout is given. Exam Vital Signs Temp Pulse Resp BP Pulse Ox O2 Del Method O2 Flow Rate 97.0 F 72 18 142/55 H 95 Nasal Cannula 1 04/12/24 04:00 04/12/24 08:27 04/12/24 08:27 04/12/24 07:15 04/12/24 08:27 04/11/24 16:00 04/11/24 18:11 Narrative Exam GENERAL: A&Ox3 . Awake, Not in acute distress NEURO: no focal neurological deficits HEENT: Atraumatic, Normocephalic. mucous membranes moist. Eyes open, symmetrical, & clear HEART: Normal Heart Sounds LUNGS: Clear to auscultation ABDOMEN: soft, non-distended, tenderness to palpation, Status post colon surgery with wound VAC, significant redness noted around surgical site SKIN: Erythematous skin around the area of wound vac EXTREMITIES: No edema, tenderness, able to move all 4 extremities, pedal pulses palpated Objective Labs 04/12/24 05:21 04/12/24 05:21 Labs: Laboratory Results - last 24 hr 04/11/24 04/11/24 04/12/24 08:23 08:27 05:21 WBC 15.8 H RBC 3.91 L Hgb 11.2 L D Hct 33.6 L D MCV 86 MCH 28.6 MCHC 33.3 RDW Std Deviation 53.5 H Plt Count 284 D Neut % (Auto) 74 Lymph % (Auto) 13 Daniels % (Auto) 7 Eos % (Auto) 1 Baso % (Auto) 1 Neut # (Auto) 11.7 H Lymph # (Auto) 2.1 Daniels # (Auto) 1.0 H Eos # (Auto) 0.1 Baso # (Auto) 0.1 Immature Gran # (Auto) 0.79 H Absolute Nucleated RBC 0.00 Immature Gran % 5 H Nucleated RBC % 0 APTT 48.7 H Sodium 137 Potassium 3.8 Chloride 105 Carbon Dioxide 22.5 Anion Gap 10 BUN 57 H Creatinine 1.9 H Estim Creat Clear Calc 24.1 L eGFR 27 L BUN/Creatinine Ratio 30 H Glucose 67 L Calculated Osmolality 287 Calcium 8.4 Corrected Calcium 9.4 Phosphorus 3.9 Magnesium 2.4 Total Bilirubin 0.7 AST 24 ALT 24 Alkaline Phosphatase 489 H D Total Protein 5.4 L Albumin 2.7 L Globulin 2.7 Albumin/Globulin Ratio 1.0 L Procalcitonin 0.17 TSH 11.43 H D Free T4 1.06 Blood Type O Negative Antibody Screen NEGATIVE Crossmatch See Detail Blood Bank Wristband ID Yes ABG Interpretation ABG results: 03/21/24 05:40 ABG pH 7.35 ABG pCO2 41 ABG pO2 121 H ABG HCO3 23 ABG O2 Saturation 99 H ABG Base Excess -3 Quality Measures Quality Measures VTE prophylaxis and sepsis Current suspected stage: sepsis Possible source: skin/soft tissue Blood cultures ordered: yes Antibiotic ordered: Yes Advance care planning discussed with:: patient Assessment & Plan Assessment Current Active Medications: Generic Name Dose Route Start Last Admin Trade Name Freq PRN Reason Stop Dose Admin Acetaminophen 650 mg 04/12/24 08:33 Acetaminophen 325 Mg Tablet PO 05/12/24 08:32 Q4HR PRN Fever >101 and abdominal pain Albuterol/Ipratropium 3 ml 03/21/24 15:51 Albuterol/Ipratropium (Duoneb) Rt Tia 3 Ml Nebu INH 04/20/24 18:59 Q4HRRT PRN Shortness of breath Diphenhydramine HCl 25 mg 04/09/24 00:50 04/10/24 10:25 Diphenhydramine Inj 50 Mg/Ml Vial IV 05/09/24 00:49 25 mg Q6HR PRN Administration ITCHING Donepezil HCl 10 mg 03/21/24 21:00 04/11/24 21:28 Donepezil Hcl 5 Mg Tablet PO 04/20/24 20:59 10 mg HS ASHISH Administration Gabapentin 100 mg 04/10/24 14:00 04/12/24 05:37 Gabapentin 100 Mg Capsule PO 05/10/24 13:59 100 mg TID ASHISH Administration Heparin Sodium (Porcine) 5,000 unit 04/12/24 21:00 Heparin Sod Inj 5000 Unit/Ml Vial SC 04/26/24 20:59 BID ASHISH Hydralazine HCl 10 mg 03/21/24 15:45 Hydralazine Hcl 10 Mg Tablet PO 04/20/24 17:59 Q6HR PRN SBP>160 Albumin Human 25 gm in 100 mls @ 100 mls/min 03/21/24 10:54 Albuminar-25 Ivpb IV PRN PRN DIALYSIS Piperacillin/Tazobactam/Dextrose 50 mls @ 12.5 mls/hr 04/12/24 09:00 04/12/24 11:33 Zosyn IV 04/18/24 20:59 12.5 mls/hr Q12HR ASHISH Administration Levothyroxine Sodium 125 mcg/ 175 mcg 04/13/24 06:00 Levothyroxine Sodium 50 mcg PO 05/13/24 05:59 ACBR ASHISH Morphine Sulfate 0 mg 04/09/24 12:22 04/11/24 10:52 Morphine Sulf 1 Mg/Ml Malt Liquors Sales Supervisor Syringe 30 Ml UTILITY BAG ASSEMBLER 04/14/24 12:21 Not Given PER ORDER ASHISH Protocol Ondansetron HCl 4 mg 03/21/24 06:08 04/08/24 20:53 Ondansetron Inj 2 Mg/Ml Inj 2 Ml IV 04/20/24 06:07 4 mg Q6H PRN Administration NAUSEA OR VOMITING Protocol Pantoprazole Sodium 40 mg 04/11/24 09:15 04/12/24 09:00 Pantoprazole Inj 40 Mg Vial IVP 05/11/24 09:14 40 mg QDAY ASHISH Administration Sodium Chloride 3 ml 03/21/24 08:25 Sodium Chloride Rt Tia 0.9% 3 Ml Nebu INH 04/20/24 08:24 PRN PRN SOLN Valproic Acid 750 mg 04/03/24 09:00 04/12/24 09:01 Valproic Acid Syrup 250 Mg/5 Ml Udc PO 05/03/24 08:59 750 mg BID ASHISH Administration Plan Ms. Shell is a 78-year-old female with a past medical history significant for hypothyroidism, hypertension, JACKIE, asthma, depression, bipolar disorder, dementia, recurrent UTI, previous right hemicolectomy withdiverting ileostomy and later recent reversal of ileostomy on 04/09/2024 presented initially with altered mental status and nausea and vomiting and admitted for acute uremic encephalopathy and MAKENZIE as well as sepsis secondary to UTI versus intra-abdominal abscess as seen on CT imaging. ICU was consulted on 04/11/24 for further management of undifferentiated shock vs symptomatic bradycardia. NEURO #New onset seizures #Complex partial seizures -Suspicion of seizures marked by bilateral tremors. -Teleneuro was consulted. CT head and CTA negative for any acute findings. -New onset of seizures could have resulted from abrupt discontinuation of Depakote (patient was taking 250 Mg for hx bipolar disorder) -Neurology suspected complex partial seizures and recommended increasing valproate dose in place of Keppra due to better side effect profile. -Valproic 750mg twice daily -Seizure precautions #Acute metabolic encephalopathy - resolved #Chronic insomnia ? Held home Ambien 5 mg nightly #History of dementia -Patient's home donepezil is resumed CARDIO # Undifferentiated shock-improving -DDx: More likely septic shock less likely hemorrhagic shock -high suspicion of septic shock because of sudden rise in WBC, fever and abdominal pain -Less likely hemorrhagic shock as NICOM SVI u/s show pt is not fluid responsive as well as bedside U/s of the heart show adequate filling of the left ventricle -Fluid resuscitation of 1L given during rapid response on 04/11 -Prior to ICU admission Labs significant for leukoycytosis and low Hgb of 7.2, patient received 2 units of pRBCs -Status post 2 units pRBC hemoglobin is 11.2 -Started IV Zosyn 04/11- -DC vancomycin due to patient's renal function -Pending blood cultures -Lactic acid 1.2 on 04/11 -Discontinued Levophed MAP is greater than 100 #Symptomatic bradycardia - resolved -prior to admission to ICU, Patient had a RR for symptomatic bradycardia in the low 40s. EKG after Amp of D50 showed sinus bradycardia in the 50s. Repeat RR showed HR dropped back down to the low 40s, and patient appeared more lethargic. -Today 04/12 HR is 70's -Pt was given Atropine x 1 on 04/10 -cardiology consulted and Dr. An following -echo done- reading pending #History of hypertension- chronic -Patient has a longstanding hypertension on both metoprolol and hydralazine. 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 Flynn. -Patient had incision and drainage done 04/[address] Flynn, wound was irrigated with saline and packed, without complications -Patient underwent reverse ileostomy and wound VAC on 04/09/2024 -Due to possible colostomy leakage/malfunction/complications, patient had 3 admissions since the procedure, and reversal of ileostomy was performed 04/09/24. -Patient has not had bowel movement since 04/08/24 (per general surgery recommendation Colace may be given once daily and avoid any opioids agents) ?Clear liquid diet currently, advance as tolerated ?Pain control as needed with Tylenol, however discontinued Morphine, avoid opioids as patient is constipated ?Continue wound care, erythema around the wound wac is marked, monitor for enlarging area of erythema ?Continue to monitor CMP ?Registered dietary and physical therapy, appreciate recs -Continue with q1 temperature checks, keep patient on bear hugger and warm blankets -Repeat CT from 04/11/2024 findings discussed with general surgery, there is no concerns on their end # Acute blood loss anemia?resolved -Differential diagnosis: Possible leakage of blood from recent surgery -Hemoglobin today is 11.2 and hematocrit 33 -s/p 2 units of pRBCs RENAL #MAKENZIE Differential diagnosis: Prerenal versus possible ischemic ATN -Patient more likely have prerenal MAKENZIE in the setting of poor oral intake. -Creatinine today 1.9 and GFR 27 -Will be gentle on fluids as patient is tolerating p.o. -Per nephro recs, no more fluids needed -Continue to monitor daily CMP -Avoid nephrotoxins -Renally dose medications -Avoid diuretics and NSAIDs -Senior Web Engineer, Dr. Rahman following, appreciate recs #Electrolyte imbalances #Hyperphosphatemia -resolved Urgent dialysis indicated on admission, patient had temporary catheter placement. Holding dialysis for now because renal function is improving Plan: -Senior Web Engineer Dr. Rahman following,recommends to treat elevated Phos after patient starts tolerating advanced diet -Continue to monitor CMP HEME # Acute blood loss anemia?resolved -Differential diagnosis: Possible leakage of blood from recent surgery -Hemoglobin today is 11.2 and hematocrit 33 -s/p 2 units of pRBCs #Leukocytosis -Initial WBC elevated at 17. Secondary to septic shock from possible infection. -Continue to monitor daily CBC, leukocytosis is downtrending -Blood cultures pending ENDO #History of hypothyroidism Patient has a history of hypothyroidism. She takes levothyroxine at home. -TSH 11.43 -Free T4 1.06 ?Increased to levothyroxine 175 mcg before breakfast ID # E.Coli UTI -treated #History of recurrent UTI Patient initially reported dysuria and cloudy urine on admission. CT A/P 03/31: Fluid collection 5.4 x 4.0 x 2.2 cm in subcutaneous fatty tissue anterior pelvic wall, differentials include abcess and hematoma -Urine cultures positive for E. coli, pansensitive on 03/21 -Completed 1 week course of doxycycline and IV Zosyn from 03/21-04/02) -IV Zosyn (03/21-04/02) MSK No active issues SKIN No active issues PYSCH #History of Bipolar Patient takes home Valproic acid. -Resumed Valproic acid, but increased dosage d/t new finding of complex partial seizures Health Maintenance: DVT prophylaxis: Heparin 5000 units twice daily GI prophylaxis: PPI QD Diet: CLD-upgrade as tolerated [place]: no CODE STATUS: FULL Assessment and plan discussed with my attending physician Dr. Andres Bustamante (PGY-1)- Internal medicine resident
--- NOTE | 2024-04-12 12:38 | PC.NURSE ---
at 1200 on assessment patients central line not in place, Dr. Bustamante notified of patient self removal of central line, patient has no pain or discomfort or bleeding
--- NOTE | 2024-04-12 14:12 | ESPR_ITS ---
Documentation for date of: 04/12/24 Subjective Subjective Interval history: Interval history: 78 y/o F with PMHx significant for hypothyroidism, hypertension, JACKIE, asthma, depression, dementia, recurrent UTI, and is status post hemicolectomy with ileostomy presents with altered mental status and nausea and vomiting. Patient initially presented to ED with altered mentation and was not able to provide history. Subsequently given 2.5 L of fluids per sepsis protocol and mentation slowly improved. Upon evaluation, patient endorsed 2 to 3 days of nausea and vomiting along with decreased p.o. intake. Also endorses abdominal pain at ileostomy site, decreased ileostomy output, as well as dysuria and cloudy urine but denies fever or chills. Otherwise also denies shortness of breath or chest discomfort. Of note, patient recently discharged on 02/15 for ileostomy leakage/malfunction. CT head unremarkable. CT A/P showed Soft tissue mass in the anterior abdominal wall 2.8 x 2.2 cm and aggregate of small bowel versus abscess in the right lower abdomen poorly defined, at least 4 cm in dimension. Patient recieved IVF, magnesisum, zosyn and rocephin in ED. Labs showed sodium 125, potassium 6.6, BUN 134, Assessment Rn 9.3, eGFR 4, Corrected Ca 8.3, phos 10.7, Mg 1.1. Patient has no known history CKD. On exam patient was lethargic but responsive, followed commands, A&Ox3. Appears euvolemic. Nephrology consulted for acute renal failure, plan for emergent dialysis. 04/03/2024 patient currently seen in medical floor. Resting comfortably. Still having significant colostomy losses. CT abdomen with contrast results reviewed. Labs, medications reviewed. Patient feeling much better. Encouraged encourage p.o. fluids. Dialysis catheter was removed. Still leaking around the colostomy site. Surgeon on the case. s/p I&D - abscess. On gentle IV fluids. Creatinine 1.4. Possible surgery this week. Renal giordano no further recommendations. Will follow as needed. 04/09/2024 patient currently seen in telemetry. Resting comfortably. Seems tired. Status post colostomy reversal, repair with wound VAC. Labs, medications reviewed. CBC normal, BUN 56, creatinine 1.6. Calcium 9.5, phosphorus 3.7, magnesium 1.6, alk phos 639. 04/10/2024 patient seen in telemetry, eating breakfast, patient is status post Exploratory laparotomy, reversal of ileostomy day 1, labs reviewed WBC 17.6, hemoglobin 8.3, sodium 139, potassium 3.6, creatinine 1.9, GFR 27, BUN 56, phosphorus 5.7, patient will be started on IV fluids sodium chloride 65 cc/h, will continue to monitor renal function in a.m. 04/11/2024 patient seen in ICU, was upgraded to ICU overnight due to concern of septic shock, patient was given 500 cc bolus twice overnight no improvement in MAP hence was eventually started on Levophed drip and was transferred to ICU for further care. Patient's BUN 61, creatinine 2.2, GFR 22, corrected calcium 8.9, magnesium 1.4, sodium 135. Patient is not fluid responsive per ICU assessment. Patient's MAKENZIE worsen possibly in setting of ischemia from underlying shock. 04/12/24: Patient was seen and examined by the bedside in the ICU. Patient is awake, answering questions, reports feeling better. Urine output is 700 ml. Creatinine has improved 1.9. Bedside ultrasound showed plethoric IVC and previously fluid bolus did not improve MAP so patient is not fluid responsive. Currently on Zosyn. Exam Vital Signs Temp Pulse Resp BP Pulse Ox O2 Del Method O2 Flow Rate 97.5 F 71 15 139/57 H 89 L Room Air 1 04/12/24 12:04/12/24 12:04/12/24 12:04/12/24 12:04/12/24 12:04/12/24 12:04/11/24 18:11 Narrative Exam Physical Exam General: Awake and in no acute distress. Conversational and non-toxic appearing. HEENT: Normocephalic, atraumatic, mucous membranes moist. Heart: Regular rate and rhythm, no murmurs. Lungs: Clear to auscultation with no wheezing or crackles. Abdomen: Soft, nondistended, nontender, positive bowel sounds. ?No guarding or rebound tenderness. Wound vac in place. Neurologic: Alert and oriented x3, no gross neurological deficit, and patient able to move all 4 extremities. Extremities: No edema. Skin: No rash or ecchymoses. Objective Labs 04/12/24 05:21 04/12/24 05:21 Labs: Laboratory Results - last 24 hr 04/11/24 04/12/24 08:23 05:21 WBC 15.8 H RBC 3.91 L Hgb 11.2 L D Hct 33.6 L D MCV 86 MCH 28.6 MCHC 33.3 RDW Std Deviation 53.5 H Plt Count 284 D Neut % (Auto) 74 Lymph % (Auto) 13 [place] % (Auto) 7 Eos % (Auto) 1 Baso % (Auto) 1 Neut # (Auto) 11.7 H Lymph # (Auto) 2.1 [place] # (Auto) 1.0 H Eos # (Auto) 0.1 Baso # (Auto) 0.1 Immature Gran # (Auto) 0.79 H Absolute Nucleated RBC 0.00 Immature Gran % 5 H Nucleated RBC % 0 APTT 48.7 H Sodium 137 Potassium 3.8 Chloride 105 Carbon Dioxide 22.5 Anion Gap 10 BUN 57 H Creatinine 1.9 H Estim Creat Clear Calc 24.1 L eGFR 27 L BUN/Creatinine Ratio 30 H Glucose 67 L Calculated Osmolality 287 Calcium 8.4 Corrected Calcium 9.4 Phosphorus 3.9 Magnesium 2.4 Total Bilirubin 0.7 AST 24 ALT 24 Alkaline Phosphatase 489 H D Total Protein 5.4 L Albumin 2.7 L Globulin 2.7 Albumin/Globulin Ratio 1.0 L Free T4 1.06 Blood Type O Negative Antibody Screen NEGATIVE Crossmatch See Detail Blood Bank Wristband ID Yes ABG Interpretation ABG results: 03/21/24 05:40 ABG pH 7.35 ABG pCO2 41 ABG pO2 121 H ABG HCO3 23 ABG O2 Saturation 99 H ABG Base Excess -3 Quality Measures Quality Measures VTE prophylaxis and sepsis Current suspected stage: sepsis Possible source: skin/soft tissue Blood cultures ordered: yes Antibiotic ordered: Yes Advance care planning discussed with:: other Assessment & Plan Assessment Current Active Medications: Generic Name Dose Route Start Last Admin Trade Name Freq PRN Reason Stop Dose Admin Acetaminophen 650 mg 04/12/24 08:33 Acetaminophen 325 Mg Tablet PO 05/12/24 08:32 Q4HR PRN Fever >101 and abdominal pain Albuterol/Ipratropium 3 ml 03/21/24 15:51 Albuterol/Ipratropium (Duoneb) Rt Tia 3 Ml Nebu INH 04/20/24 18:59 Q4HRRT PRN Shortness of breath Diphenhydramine HCl 25 mg 04/09/24 00:50 04/10/24 10:25 Diphenhydramine Inj 50 Mg/Ml Vial IV 05/09/24 00:49 25 mg Q6HR PRN Administration ITCHING Donepezil HCl 10 mg 03/21/24 21:00 04/11/24 21:28 Donepezil Hcl 5 Mg Tablet PO 04/20/24 20:59 10 mg HS ASHISH Administration Gabapentin 100 mg 04/10/24 14:00 04/12/24 05:37 Gabapentin 100 Mg Capsule PO 05/10/24 13:59 100 mg TID ASHISH Administration Heparin Sodium (Porcine) 5,000 unit 04/12/24 21:00 Heparin Sod Inj 5000 Unit/Ml Vial SC 04/26/24 20:59 BID ASHISH Hydralazine HCl 10 mg 03/21/24 15:45 Hydralazine Hcl 10 Mg Tablet PO 04/20/24 17:59 Q6HR PRN SBP>160 Albumin Human 25 gm in 100 mls @ 100 mls/min 03/21/24 10:54 Albuminar-25 Ivpb IV PRN PRN DIALYSIS Piperacillin/Tazobactam/Dextrose 50 mls @ 12.5 mls/hr 04/12/24 09:00 04/12/24 11:33 Zosyn IV 04/18/24 20:59 12.5 mls/hr Q12HR ASHISH Administration Levothyroxine Sodium 125 mcg/ 175 mcg 04/13/24 06:00 Levothyroxine Sodium 50 mcg PO 05/13/24 05:59 ACBR ASHISH Morphine Sulfate 0 mg 04/09/24 12:22 04/11/24 10:52 Morphine Sulf 1 Mg/Ml Occupational Psychologist Syringe 30 Ml SALES ADVISOR 04/14/24 12:21 Not Given PER ORDER [facility] Protocol Ondansetron HCl 4 mg 03/21/24 06:08 04/08/24 20:53 Ondansetron Inj 2 Mg/Ml Inj 2 Ml IV 04/20/24 06:07 4 mg Q6H PRN Administration NAUSEA OR VOMITING Protocol Pantoprazole Sodium 40 mg 04/11/24 09:15 04/12/24 09:00 Pantoprazole Inj 40 Mg Vial IVP 05/11/24 09:14 40 mg QDAY ASHISH Administration Sodium Chloride 3 ml 03/21/24 08:25 Sodium Chloride Rt Tia 0.9% 3 Ml Nebu INH 04/20/24 08:24 PRN PRN SOLN Valproic Acid 750 mg 04/03/24 09:00 04/12/24 09:01 Valproic Acid Syrup 250 Mg/5 Ml Udc PO 05/03/24 08:59 750 mg BID ASHISH Administration Plan 78 y/o F with PMHx significant for hypothyroidism, hypertension, JACKIE, asthma, depression, dementia, recurrent UTI, and is status post hemicolectomy with ileostomy admitted for acute uremic encephalopathy, stage III acute kidney injury, sepsis secondary to UTI versus intra-abdominal abscess. #Acute kidney injury-suspect patient in ischemic ATN , improving Patient received 2 dialysis treatments and started to make good urine. Dialysis was discontinued and catheter removed. Creatinine improved to 1.6, sodium 136. -s/p CT abdomen with IV contrast . Continue with gentle IV hydration. Patient is status post reversal of ileostomy day 2, patient was upgraded to ICU overnight due to concern of septic shock, patient was given 500 cc bolus twice overnight no improvement in MAP hence was eventually started on Levophed drip and was transferred to ICU for further care. Patient's BUN 61, creatinine 2.2, GFR 22 Plan of care discussed with ICU team -Per ICU assessment, patient is not fluid responsive -Will monitor renal function in a.m., patient currently is off pressors -Avoid nephrotoxins -Renally dose medications #Sepsis, improving secondary to GI/UTI-on antibiotics.. plan of care discussed with primary team, Dr. Flynn-did the reversal of ileostomy with wound VAC #Electrolyte imbalances #Hypothyroidism #Hypertension #Depression #Dementia Management as per primary team. Plan of care discussed with attending Dr. Rahman. Sangeeta Edge MD, PGY 1. Attending Provider Attestation/Addendum Patient seen and examined with resident physician Dr. Shirley. Note reviewed, agree with findings and recommendations. Patient moved to ICU for sepsis and shock. Was given IV fluids and no improvement in blood pressure that she needed pressors. Currently seen in ICU. Urine output started to trend down. Creatinine rodolfo to 2.2. Discussed with ICU team. 04/12/2024 Patient currently seen in ICU. She is off pressors. Will be downgraded today. Denies any chest pain, shortness of breath. Creatinine tad better. Status post exploratory laparotomy and ileostomy reversal. Surgeon on the case. On broad-spectrum antibiotics.
--- NOTE | 2024-04-12 14:41 | PD.SURPROG ---
Documentation for date of: 04/12/24 Subjective Subjective Brief History: 78F with HTN, CHF, hypothyroidism who underwent right hemicolectomy with diverting ileostomy for fecal contamination 12/19, admitted in past for MAKENZIE here now with AMS and acute renal failure, planned for emergent HD. Workup shows leukocytosis and possible abdominal fluid collection PMH: HTN, CHF, hypothyroidism, bipolar disorder PSHx: Tonsillectomy, appendectomy, cholecystectomy, hysterectomy, R hemicolectomy with diverting ileostomy 12/19 for benign necrotic mass Meds: no anticoagulation Allergies: haldol, naproxen, fluoxetine Social hx: Nonsmoker Narrative: Weaned off pressor support, pt reports feeling ok overall with minimal pain, no nausea, states she has passed gas but not yet had a BM Exam Vital Signs Temp Pulse Resp BP Pulse Ox O2 Del Method O2 Flow Rate 97.5 F 71 15 139/57 H 89 L Room Air 1 04/12/24 12:01 04/12/24 12:01 04/12/24 12:01 04/12/24 12:04/12/24 12:04/12/24 12:04/11/24 18:11 Constitutional Constitutional: no acute distress Routine Respiratory Exam Respiratory: Present no resp distress Routine Abdominal Exam Abdominal: Present soft and wound (midline wound with vac functioning); Absent tenderness or distended Results Results: Laboratory Laboratory results: results reviewed Assessment & Plan Plan 78F with HTN, CHF, hypothyroidism who underwent right hemicolectomy with diverting ileostomy for fecal contamination 12/19, admitted with acute renal failure, improved from that standpoint, now s/p ileostomy reversal 04/09, transferred to ICU overnight for hypothermia, bradycardia and hypotension, improved now transferring back to telemetry Pain control PRN FLD Await return of bowel function Procedures Procedures Exploratory laparotomy, reversal of ileostomy
--- NOTE | 2024-04-12 15:21 | PC.SS ---
Update: Patient has been downgraded to Tele.
--- NOTE | 2024-04-12 15:40 | PC.SS ---
PASSR completed. Level II due to categorical condition. PASSR follow up pending.
--- NOTE | 2024-04-12 16:19 | PD.RESEVENT ---
Documentation for date of: 04/12/24 Event Note Event Note: Patient case discussed with ICU team. Patient will be coming down to the floors tomorrow after patient is off pressors, hemoglobin is stable at 11.2, can consider Colace for constipation if needed per ICU. Will resume care of patient starting tomorrow. Patient seen and care discussed with my senior resident, Dr. Sanchez , and my attending physician, Dr. Maru Hinson, PGY-1
--- NOTE | 2024-04-12 18:53 | PC.NURSE ---
report given to JEYSON pinzon, patient transported to room 264 via bed with belongings
[2024-04-12] MEDS: DONEPEZIL HCL 5 MG TABLET 10 MG PO (20:55)
[2024-04-12] MEDS: HEPARIN SOD INJ 5000 UNIT/ML VIAL SC (20:55)
[2024-04-13] VITALS (8 sets, daily range): BP systolic 118–137; BP diastolic 56–79; PULSE 58–103; RESP 12–96; TEMP 36–36.9; O2SAT 94–97; BMI 29.0
[2024-04-13] MEDS: GABAPENTIN 100 MG CAPSULE PO ×3 (05:06→20:23)
[2024-04-13] MEDS: LEVOTHYROXINE SODIUM 125 MCG, LEVOTHYROXINE SODIUM 50 MCG 175 MCG PO (05:06)
[2024-04-13] MEDS: DiphenhydrAMINE INJ 50 MG/ML VIAL 25 MG IV (05:26)
[2024-04-13 08:50] LABS: Basophils # (Auto) 0.2 Thou/mm3 (0.0-0.2); Basophils % (Auto) 1 % (0-2.5); Eosinophils # (Auto) 0.2 Thou/mm3 (0.0-0.5); Eosinophils % (Auto) 1 % (0-10); Hematocrit 35.3 % (36.0-46.0); Hemoglobin 11.7 g/dL (12.0-16.0); Immature Granulocytes % (Auto) 6 % (0-0); Immature Granulocytes Auto 0.98 Thou/mm3 (0.00-0.00); Lymphocytes # (Auto) 2.4 Thou/mm3 (1.0-4.8); Lymphocytes % (Auto) 14 % (10-50); Mean Corpuscular HGB Conc 33.1 g/dl (31.0-37.0); Mean Corpuscular Hemoglobin 27.9 pg (25.0-35.0); Mean Corpuscular Volume 84 fL (80-100); Monocytes # (Auto) 1.2 Thou/mm3 (0.0-0.8); Monocytes % (Auto) 7 % (0-12); Neutrophils # (Auto) 11.9 Thou/mm3 (1.8-7.7); Neutrophils % (Auto) 71 % (37-80); Nucleated Red Blood Cell # 0.02 Thou/mm3 (0.00-0.00); Platelet Count 297 Thou/mm3 (140-440); RDW Standard Deviation 52.7 fL (36.4-46.3); White Blood Count 16.8 Thou/mm3 (3.6-11.0)
[2024-04-13 08:51] LABS: Nucleated Red Blood Cell % 0 /100 WBC (0)
--- NOTE | 2024-04-13 08:56 | PD.RESPRO ---
Documentation for date of: 04/13/24 Subjective Subjective Interval history: Patient was seen and examined at bedside this morning. Overnight patient's had a few PVCs. Patient's EKG is still not done. Patient's HR has been in the 60s Patient has good chronotropic response Patient does not have any cardiac complaints at this time Potassium 3.8 and magnesium 2.4 from yesterday, no morning labs, recommend to aggressively replete potassium magnesium to keep above 4 and 2 respectively Recommend to avoid any beta-blockers, calcium channel blockers, or any other rate controlling drugs given patient's sinus bradycardia. Patient's echo had the following findings: Normal LV size and function. Grade I diastolic dysfunction. Estimated EF 65-70% Normal RV size and function. Trace MR, PI, Mild TR. Mild AV sclerosis without stenosis Exam Vital Signs Temp Pulse Resp BP Pulse Ox O2 Del Method O2 Flow Rate 97.6 F 64 20 137/65 H 94 L Room Air 1 04/13/24 08:00 04/13/24 08:00 04/13/24 08:00 04/13/24 08:00 04/13/24 08:00 04/13/24 08:00 04/12/24 16:00 Narrative Exam General: A/O x3, resting in bed Eyes: Patient's pupils are still sluggish. EOMI, patient grossly intact Ears: no visible ear discharge, Hearing grossly intact. Nose: No visible nasal discharge. Mouth/Throat: Dry mucous membranes, no redness, no lesions. Neck: Neck supple, non-tender, no cervical lymphadenopathy. Lungs: Clear MYRNA to auscultation and percussion, No accessory muscle use. Cardio: Normal S1/S2, regular rhythm, no murmurs, no JVD Abdomen: Soft, mild tenderness to palpation around wound VAC, no palpable masses, peristalsis present, no guarding or rebound. Wound VAC in place, but draining well Extremities: Symmetrical, no significant deformities, trace edema , non-tender, peripheral pulses presents. Skin: No rashes, no lesions, warm to touch. Neuro: Patient was able to move all extremities. She is a lot more awake and responsive today. Was able to follow commands and answer all questions appropriately. Objective Labs 04/13/24 08:15 04/13/24 08:15 Labs: Laboratory Results - last 24 hr 04/13/24 08:15 WBC 16.8 H RBC 4.20 Hgb 11.7 L Hct 35.3 L MCV 84 MCH 27.9 MCHC 33.1 RDW Std Deviation 52.7 H Plt Count 297 Neut % (Auto) 71 Lymph % (Auto) 14 [place] % (Auto) 7 Eos % (Auto) 1 Baso % (Auto) 1 Neut # (Auto) 11.9 H Lymph # (Auto) 2.4 [place] # (Auto) 1.2 H Eos # (Auto) 0.2 Baso # (Auto) 0.2 Immature Gran # (Auto) 0.98 H Absolute Nucleated RBC 0.02 H Immature Gran % 6 H Nucleated RBC % 0 ABG Interpretation ABG results: 03/21/24 05:40 ABG pH 7.35 ABG pCO2 41 ABG pO2 121 H ABG HCO3 23 ABG O2 Saturation 99 H ABG Base Excess -3 Quality Measures Quality Measures VTE prophylaxis and sepsis Current suspected stage: sepsis Possible source: skin/soft tissue Blood cultures ordered: yes Antibiotic ordered: Yes Advance care planning discussed with:: patient Assessment & Plan Assessment Current Active Medications: Generic Name Dose Route Start Last Admin Trade Name Freq PRN Reason Stop Dose Admin Acetaminophen 650 mg 04/12/24 08:33 Acetaminophen 325 Mg Tablet PO 05/12/24 08:32 Q4HR PRN Fever >101 and abdominal pain Albuterol/Ipratropium 3 ml 03/21/24 15:51 Albuterol/Ipratropium (Duoneb) Rt Tia 3 Ml Nebu INH 04/20/24 18:59 Q4HRRT PRN Shortness of breath Diphenhydramine HCl 25 mg 04/09/24 00:50 04/13/24 05:26 Diphenhydramine Inj 50 Mg/Ml Vial IV 05/09/24 00:49 25 mg Q6HR PRN Administration ITCHING Donepezil HCl 10 mg 03/21/24 21:00 04/12/24 20:55 Donepezil Hcl 5 Mg Tablet PO 04/20/24 20:59 10 mg HS ASHISH Administration Gabapentin 100 mg 04/10/24 14:00 04/13/24 05:06 Gabapentin 100 Mg Capsule PO 05/10/24 13:59 100 mg TID ASHISH Administration Heparin Sodium (Porcine) 5,000 unit 04/12/24 21:00 04/12/24 20:55 Heparin Sod Inj 5000 Unit/Ml Vial SC 04/26/24 20:59 5,000 unit BID ASHISH Administration Hydralazine HCl 10 mg 03/21/24 15:45 Hydralazine Hcl 10 Mg Tablet PO 04/20/24 17:59 Q6HR PRN SBP>160 Albumin Human 25 gm in 100 mls @ 100 mls/min 03/21/24 10:54 Albuminar-25 Ivpb IV PRN PRN DIALYSIS Piperacillin/Tazobactam/Dextrose 50 mls @ 12.5 mls/hr 04/12/24 09:00 04/12/24 20:55 Zosyn IV 04/18/24 20:59 12.5 mls/hr Q12HR ASHISH Administration Levothyroxine Sodium 125 mcg/ 175 mcg 04/13/24 06:00 04/13/24 05:06 Levothyroxine Sodium 50 mcg PO 05/13/24 05:59 175 mcg ACBR ASHISH Administration Morphine Sulfate 0 mg 04/09/24 12:22 04/11/24 10:52 Morphine Sulf 1 Mg/Ml Cupola Tapper Helper Syringe 30 Ml DOUBLE END TENONER SETTER 04/14/24 12:21 Not Given PER ORDER [facility] Protocol Ondansetron HCl 4 mg 03/21/24 06:08 04/08/24 20:53 Ondansetron Inj 2 Mg/Ml Inj 2 Ml IV 04/20/24 06:07 4 mg Q6H PRN Administration NAUSEA OR VOMITING Protocol Pantoprazole Sodium 40 mg 04/11/24 09:15 04/12/24 09:00 Pantoprazole Inj 40 Mg Vial IVP 05/11/24 09:14 40 mg QDAY ASHISH Administration Sodium Chloride 3 ml 03/21/24 08:25 Sodium Chloride Rt Tia 0.9% 3 Ml Nebu INH 04/20/24 08:24 PRN PRN SOLN Valproic Acid 750 mg 04/03/24 09:00 04/12/24 20:55 Valproic Acid Syrup 250 Mg/5 Ml Udc PO 05/03/24 08:59 750 mg BID ASHISH Administration Plan 78-year-old female with past medical history of hypothyroidism, hypertension, JACKIE, asthma, depression, bipolar disorder, dementia, recurrent UTIs, and 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 1. Symptomatic sinus bradycardia 2. Intermittent Atrial Arrhythmias, A-fib vs Atrial tachycardia? 3. Hypotension ? Sinus Bradycardia mostly likely vasovagal secondary to postop pain and nausea vs underlying sick sinus syndrome ? Patient's has atrial arrhythmias there is with evidence of significant frequent PACs. There was evidence of atrial arrhythmias which could be A-fib versus atrial tachycardia intermittently. At this time patient is rate controlled. ? Patient is currently off pressors and has good chronotropic response ? EKG yesterday showed sinus bradycardia with first-degree AV block ? Prior EKG on 04/09/2024 showed sinus rhythm with a heart rate was 76 and no AV block. ? Patient is not on beta-blockers at this time given her bradycardia -Patient's echo had the following findings: Normal LV size and function. Grade I diastolic dysfunction. Estimated EF 65-70% Normal RV size and function. Trace MR, PI, Mild TR. Mild AV sclerosis without stenosis Plan: ? No rate control medications including CCB or Beta blockers due to hypotension and bradycardia ? No anticoagulation at this time given possible GI bleed - Recommend repeat EKG, will follow-up on results. ? Recommend aggressive repletion of the potassium and magnesium, maintain above 4 and 2 respectively, to avoid any arrhythmias. ?Will continue to monitor patient's heart rate as she has been stable in the 60s overnight. 4. MAKENZIE 5. Acute uremic encephalopathy, resolved ?Patient initially came in with altered mental status and BUN of 121 with creatinine of 9.5. ? Patient's baseline creatinine was around 1 and BUN 27 on 02/16/2024 ?Recommend to follow-up with nephrology recommendations ?Continue current management as per primary care team 6. Sepsis secondary to UTI versus intra-abdominal abscess 7. E. coli UTI 8. Intra-abdominal abscess 9. 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 Patient had an I&D on 04/01/2024 by general surgery ? Patient had a ex lap with reversal ileostomy on 04/09/2024 by general surgery ?Patient is currently on Zosyn ?Recommend to continue current management as per primary care team 10. Normocytic normochromic anemia ?Patient's hemoglobin has been in the 8-9's prior to admission ? On admission patient's hemoglobin was 12.6 and has dropped to 7.2 today ? Recommend FOBT to rule out GI source of bleeding ? Could be due to blood loss from surgery versus hemodilutional versus GI bleed ? Recommend close monitoring and to transfuse if hemoglobin less than 7 11. Complex partial seizures, new onset ?Patient had an episode of shakiness and blank stare on 03/26/2024 ? EEG was normal and MRI was unrevealing ?Patient currently on valproic acid ? Recommend to follow neurology recommendations 12. Pseudohyponatremia, resolved ?Patient's initial sodium was 123 with osmolality of 286 ?Continue current management as per primary care team 13. Hx of hypothyroidism 14. Hx of asthma 15. Hx of depression 16. Hx of bipolar disorder 17. Hx of dementia 18. Hx of JACKIE ?Continue current management as per primary care team Continue rest of management as per primary team. We are grateful to be able to participate in Mrs. Shell's care. Thank you for the consult Plan of care discussed with attending Architecture Faculty Member, Dr Manuel Arce MD PGY-1 Attending Provider Attestation/Addendum I reviewed the resident Dr. Dey consultation progress note and agree with the resident findings and plan in the note above and have also edited the documentation to reflect my findings and plan. Сергей Jackson M.D. Interventional Cardiology
[2024-04-13 09:38] LABS: Band Neutrophils (Manual) 3 % (0-6); Eosinophils (Manual) 1 % (0-4); Lymphocytes (Manual) 17 % (20-44); Metamyelocytes (Manual) 1 % (0-0); Monocytes (Manual) 5 % (2-9); Myelocytes (Manual) 2 % (0-0); Neutrophils (Manual) 71 % (50-70)
[2024-04-13 09:39] LABS: Anisocytosis 1+; Atypical Lymphs Rare; Hypersegmented Polys 2+
[2024-04-13] MEDS: ACETAMINOPHEN 325 MG TABLET 650 MG PO ×3 (09:54→20:23)
[2024-04-13] MEDS: PIPER/TAZO 3.375 GM 50 ML IV (09:55)
[2024-04-13] MEDS: HEPARIN SOD INJ 5000 UNIT/ML VIAL SC ×2 (09:56→20:24)
[2024-04-13] MEDS: VALPROIC ACID SYRUP 250 MG/5 ML UDC 750 MG PO ×2 (09:56→20:23)
[2024-04-13] MEDS: PANTOPRAZOLE INJ 40 MG VIAL IVP (09:56)
--- NOTE | 2024-04-13 10:31 | ESPR_ITS ---
Documentation for date of: 04/13/24 Subjective Subjective Brief History: 78F with HTN, CHF, hypothyroidism who underwent right hemicolectomy with diverting ileostomy for fecal contamination 12/19, admitted in past for MAKENZIE here now with AMS and acute renal failure, planned for emergent HD. Workup shows leukocytosis and possible abdominal fluid collection PMH: HTN, CHF, hypothyroidism, bipolar disorder PSHx: Tonsillectomy, appendectomy, cholecystectomy, hysterectomy, R hemicolectomy with diverting ileostomy 12/19 for benign necrotic mass Meds: no anticoagulation Allergies: haldol, naproxen, fluoxetine Social hx: Nonsmoker Narrative: Reporting mild pain at left lower abdomen, no nausea, has not yet had a BM. Remaining afebrile, WBC 16.8 from 15.8 Exam Vital Signs Temp Pulse Resp BP Pulse Ox O2 Del Method O2 Flow Rate 97.6 F 96 14 137/65 H 96 Room Air 1 04/13/24 08:00 04/13/24 09:12 04/13/24 09:12 04/13/24 08:00 04/13/24 09:12 04/13/24 08:00 04/12/24 16:00 Constitutional Constitutional: no acute distress Routine Respiratory Exam Respiratory: Present no resp distress Routine Abdominal Exam Abdominal: Present soft and wound (midline wound with vac in place to suction, minimal output); Absent tenderness or distended Results Results: Laboratory Laboratory results: results reviewed Assessment & Plan Plan 78F with HTN, CHF, hypothyroidism who underwent right hemicolectomy with divert ing ileostomy for fecal contamination 12/19, admitted with acute renal failure, improved from that standpoint, now s/p ileostomy reversal 04/09, postop course significant for hypothermia and bradycardia requiring transfer to ICU, now improved continuing to await bowel function Pain control PRN FLD Physical therapy DC Abx Procedures Procedures Exploratory laparotomy, reversal of ileostomy
[2024-04-13 11:04] LABS: Alanine Aminotransferase 18 U/L (10-49); Albumin, Serum 2.6 gm/dL (3.4-4.8); Alkaline Phosphatase 449 U/L (46-116); Anion Gap 8 (7-16); Aspartate Amino Transferase 17 U/L (0-34); BUN/Creatinine Ratio 35 Ratio (12-20); Bilirubin,Total 0.3 mg/dL (0.3-1.2); Blood Urea Nitrogen 53 mg/dL (9-23); Calcium 8.4 mg/dL (8.3-10.6); Calcium (Corrected) 9.5 mg/dL (8.5-10.1); Carbon Dioxide 22.8 mMol/L (20.0-31.0); Chloride 106 mMol/L (98-107); Creatinine (Component) 1.5 mg/dL (0.6-1.3); Estimated Creatinine Clearance 30.9 mL/min (>60); Globulin 2.5 gm/dL (2.3-3.5); Glucose 89 mg/dL (74-106); Osmolality,Calculated 287 (275-295); Potassium 3.7 mMol/L (3.4-5.1); Sodium 137 mMol/L (136-145); Total Protein 5.1 gm/dL (5.7-8.2); eGFR 35 See Note
--- NOTE | 2024-04-13 13:53 | ESPR_ITS ---
Documentation for date of: 04/13/24 Subjective Subjective Interval history: Interval history: 78 y/o F with PMHx significant for hypothyroidism, hypertension, JACKIE, asthma, depression, dementia, recurrent UTI, and is status post hemicolectomy with ileostomy presents with altered mental status and nausea and vomiting. Patient initially presented to ED with altered mentation and was not able to provide history. Subsequently given 2.5 L of fluids per sepsis protocol and mentation slowly improved. Upon evaluation, patient endorsed 2 to 3 days of nausea and vomiting along with decreased p.o. intake. Also endorses abdominal pain at ileostomy site, decreased ileostomy output, as well as dysuria and cloudy urine but denies fever or chills. Otherwise also denies shortness of breath or chest discomfort. Of note, patient recently discharged on 02/15 for ileostomy leakage/malfunction. CT head unremarkable. CT A/P showed Soft tissue mass in the anterior abdominal wall 2.8 x 2.2 cm and aggregate of small bowel versus abscess in the right lower abdomen poorly defined, at least 4 cm in dimension. Patient recieved IVF, magnesisum, zosyn and rocephin in ED. Labs showed sodium 125, potassium 6.6, BUN 134, Junior Web Developer 9.3, eGFR 4, Corrected Ca 8.3, phos 10.7, Mg 1.1. Patient has no known history CKD. On exam patient was lethargic but responsive, followed commands, A&Ox3. Appears euvolemic. Nephrology consulted for acute renal failure, plan for emergent dialysis. 04/03/2024 patient currently seen in medical floor. Resting comfortably. Still having significant colostomy losses. CT abdomen with contrast results reviewed. Labs, medications reviewed. Patient feeling much better. Encouraged encourage p.o. fluids. Dialysis catheter was removed. Still leaking around the colostomy site. Surgeon on the case. s/p I&D - abscess. On gentle IV fluids. Creatinine 1.4. Possible surgery this week. Renal giordano no further recommendations. Will follow as needed. 04/10/2024 patient seen in telemetry, eating breakfast, patient is status post Exploratory laparotomy, reversal of ileostomy day 1, labs reviewed WBC 17.6, hemoglobin 8.3, sodium 139, potassium 3.6, creatinine 1.9, GFR 27, BUN 56, phosphorus 5.7, patient will be started on IV fluids sodium chloride 65 cc/h, will continue to monitor renal function in a.m. 04/11/2024 patient seen in ICU, was upgraded to ICU overnight due to concern of septic shock, patient was given 500 cc bolus twice overnight no improvement in MAP hence was eventually started on Levophed drip and was transferred to ICU for further care. Patient's BUN 61, creatinine 2.2, GFR 22, corrected calcium 8.9, magnesium 1.4, sodium 135. Patient is not fluid responsive per ICU assessment. Patient's MAKENZIE worsen possibly in setting of ischemia from underlying shock. 04/12/24: Patient was seen and examined by the bedside in the ICU. Patient is awake, answering questions, reports feeling better. Urine output is 700 ml. Creatinine has improved 1.9. Bedside ultrasound showed plethoric IVC and previously fluid bolus did not improve MAP so patient is not fluid responsive. Currently on Zosyn. 04/13/24: Patient was seen in telemetry. Downgraded overnight. Patient is alert, awake and conversational, renal function improving, will continue to monitor. Patient has no current complaints, reports improvement. Urine output 690 ml. Creatinine 1.5, BUN 53, GFR 35. Encouraged to work with physical therapy, will monitor renal function and electrolytes. Exam Vital Signs Temp Pulse Resp BP Pulse Ox O2 Del Method O2 Flow Rate 97.5 F 68 20 122/56 L 96 Room Air 1 04/13/24 12:00 04/13/24 12:00 04/13/24 12:00 04/13/24 12:00 04/13/24 12:00 04/13/24 12:04/12/24 16:00 Narrative Exam General: A/O x3, resting in bed HEENT: NCAT, PERRLA, EOMI, MMM, anicteric conjunctivae. Lungs: Clear MYRNA to auscultation and percussion, No accessory muscle use. Cardio: Normal S1/S2, regular rhythm, no murmurs, no JVD Abdomen: Soft, mild tenderness to palpation around wound VAC, no palpable masses, peristalsis present, no guarding or rebound. Wound VAC in place, but draining well Extremities: Symmetrical, no significant deformities, trace edema , non-tender, peripheral pulses presents. Neuro: Patient was able to move all extremities. She is a lot more awake and responsive today. Was able to follow commands and answer all questions appropriately. Objective Labs 04/14/24 04:52 04/13/24 08:15 Labs: Laboratory Results - last 24 hr 04/13/24 08:15 WBC 16.8 H RBC 4.20 Hgb 11.7 L Hct 35.3 L MCV 84 MCH 27.9 MCHC 33.1 RDW Std Deviation 52.7 H Plt Count 297 Neut % (Auto) 71 Lymph % (Auto) 14 [place] % (Auto) 7 Eos % (Auto) 1 Baso % (Auto) 1 Neut # (Auto) 11.9 H Lymph # (Auto) 2.4 [place] # (Auto) 1.2 H Eos # (Auto) 0.2 Baso # (Auto) 0.2 Immature Gran # (Auto) 0.98 H Absolute Nucleated RBC 0.02 H Immature Gran % 6 H Neutrophils % (Manual) 71 H Monocytes % (Manual) 5 Eosinophils % (Manual) 1 Metamyelocytes % 1 H Myelocytes % 2 H Nucleated RBC % 0 Band Neutrophils 3 Lymphocytes (Manual) 17 L Hypersegmented Polys 2+ Atypical Lymphocytes Rare Anisocytosis 1+ Sodium 137 Potassium 3.7 Chloride 106 Carbon Dioxide 22.8 Anion Gap 8 BUN 53 H Creatinine 1.5 H Estim Creat Clear Calc 30.9 L eGFR 35 L BUN/Creatinine Ratio 35 H Glucose 89 Calculated Osmolality 287 Calcium 8.4 Corrected Calcium 9.5 Total Bilirubin 0.3 AST 17 ALT 18 Alkaline Phosphatase 449 H D Total Protein 5.1 L Albumin 2.6 L Globulin 2.5 Albumin/Globulin Ratio 1.0 L ABG Interpretation ABG results: 03/21/24 05:40 ABG pH 7.35 ABG pCO2 41 ABG pO2 121 H ABG HCO3 23 ABG O2 Saturation 99 H ABG Base Excess -3 Quality Measures Quality Measures VTE prophylaxis and sepsis Current suspected stage: ruled out Possible source: skin/soft tissue Blood cultures ordered: yes Antibiotic ordered: Yes Advance care planning discussed with:: patient Assessment & Plan Assessment Current Active Medications: Generic Name Dose Route Start Last Admin Trade Name Freq PRN Reason Stop Dose Admin Acetaminophen 650 mg 04/12/24 08:33 04/13/24 09:54 Acetaminophen 325 Mg Tablet PO 05/12/24 08:32 650 mg Q4HR PRN Administration Fever >101 and abdominal pain Albuterol/Ipratropium 3 ml 03/21/24 15:51 Albuterol/Ipratropium (Duoneb) Rt Tia 3 Ml Nebu INH 04/20/24 18:59 Q4HRRT PRN Shortness of breath Diphenhydramine HCl 25 mg 04/09/24 00:50 04/13/24 05:26 Diphenhydramine Inj 50 Mg/Ml Vial IV 05/09/24 00:49 25 mg Q6HR PRN Administration ITCHING Docusate Sodium 100 mg 04/13/24 13:45 Docusate Sod 100 Mg Capsule PO 05/13/24 13:44 QDAY [facility] Protocol Donepezil HCl 10 mg 03/21/24 21:00 04/12/24 20:55 Donepezil Hcl 5 Mg Tablet PO 04/20/24 20:59 10 mg HS ASHISH Administration Gabapentin 100 mg 04/10/24 14:00 04/13/24 05:06 Gabapentin 100 Mg Capsule PO 05/10/24 13:59 100 mg TID ASHISH Administration Heparin Sodium (Porcine) 5,000 unit 04/12/24 21:00 04/13/24 09:56 Heparin Sod Inj 5000 Unit/Ml Vial SC 04/26/24 20:59 5,000 unit BID ASHISH Administration Hydralazine HCl 10 mg 03/21/24 15:45 Hydralazine Hcl 10 Mg Tablet PO 04/20/24 17:59 Q6HR PRN SBP>160 Albumin Human 25 gm in 100 mls @ 100 mls/min 03/21/24 10:54 Albuminar-25 Ivpb IV PRN PRN DIALYSIS Levothyroxine Sodium 125 mcg/ 175 mcg 04/13/24 06:00 04/13/24 05:06 Levothyroxine Sodium 50 mcg PO 05/13/24 05:59 175 mcg ACBR ASHISH Administration Morphine Sulfate 0 mg 04/09/24 12:22 04/11/24 10:52 Morphine Sulf 1 Mg/Ml Business Education Instructor Syringe 30 Ml DIRECTOR MORTGAGE 04/14/24 12:21 Not Given PER ORDER [facility] Protocol Ondansetron HCl 4 mg 03/21/24 06:08 04/08/24 20:53 Ondansetron Inj 2 Mg/Ml Inj 2 Ml IV 04/20/24 06:07 4 mg Q6H PRN Administration NAUSEA OR VOMITING Protocol Pantoprazole Sodium 40 mg 04/11/24 09:15 04/13/24 09:56 Pantoprazole Inj 40 Mg Vial IVP 05/11/24 09:14 40 mg QDAY ASHISH Administration Sodium Chloride 3 ml 03/21/24 08:25 Sodium Chloride Rt Tia 0.9% 3 Ml Nebu INH 04/20/24 08:24 PRN PRN SOLN Valproic Acid 750 mg 04/03/24 09:00 04/13/24 09:56 Valproic Acid Syrup 250 Mg/5 Ml Udc PO 05/03/24 08:59 750 mg BID ASHISH Administration Plan 78 y/o F with PMHx significant for hypothyroidism, hypertension, JACKIE, asthma, depression, dementia, recurrent UTI, and is status post hemicolectomy with ileostomy admitted for acute uremic encephalopathy, stage III acute kidney injury, sepsis secondary to UTI versus intra-abdominal abscess. #Acute kidney injury-suspect patient in ischemic ATN , improving Patient received 2 dialysis treatments and started to make good urine. Dialysis was discontinued and catheter removed. Creatinine improved to 1.6, sodium 136. -s/p CT abdomen with IV contrast . Continue with gentle IV hydration. Patient is status post reversal of ileostomy day 2, patient was upgraded to ICU overnight due to concern of septic shock, patient was given 500 cc bolus twice overnight no improvement in MAP hence was eventually started on Levophed drip and was transferred to ICU for further care. Downgraded to Telemetry (04/13) overnight, stable, A&O X3, conversational. Patient's BUN 53, creatinine 1.5, GFR 35, improving. Plan of care discussed with primary team -Encourage PO Oral intake and Physical Therapy -Will monitor renal function in a.m., patient currently is off pressors -Avoid nephrotoxins -Renally dose medications #Sepsis, improving secondary to GI/UTI-on antibiotics.. plan of care discussed with primary team, Dr. Flynn-did the reversal of ileostomy with wound VAC #Electrolyte imbalances #Hypothyroidism #Hypertension #Depression #Dementia Management as per primary team. Plan of care discussed with attending Dr. Rahman. Darian Shirley PGY-1 Attending Provider Attestation/Addendum Patient seen and examined with resident physician Dr. Shirley. Note reviewed, agree with findings and recommendations. Currently seen in telemetry. Downgraded from ICU. Off pressors. She is able to eat breakfast. Clinically looks better. S/p ileostomy reversal and has wound VAC. Will need to go to rehab.
[2024-04-13] MEDS: DOCUSATE SOD 100 MG CAPSULE PO (14:40)
--- NOTE | 2024-04-13 14:40 | ESPR_ITS ---
<Statement entered by Familia Sanchez MD - 04/13/24 16:21> Patient was seen and examined at bedside. She was downgraded from ICU and she was admitted because of undifferentiated shock most likely secondary to septic shock vs hemorrhagic shock versus medication side effect. #Undifferentiated shock patient was started on Zosyn on 11 April, however it was DC'd by the general surgeon at this time. Hemoglobin stable at 7.2, CT scan was negative for any intra-abdominal bleed. #Sepsis, patient was started on Zosyn, intra-abdominal abscess was drained. #Status post reverse ileostomy day 2, no postsurgical complications at this time, skin around the wound look erythematous however it has been improving as per the wound care nurse. Dr. Ross put a wound VAC after the procedure. No significant drainage in the wound VAC. No fevers. Diet was advanced to full liquid diet, Will encourage ambulation. #MAKENZIE, most likely prerenal versus renal at this time serum creatinine is 1.9 and continue to improve today. #Insomnia, we are holding her Ambien as the patient on multiple sedation medications #Seizure patient on valproate 750 mg twice daily - Patient's plan and care discussed with my attending, Dr. Maru Sanchez MD Internal Medicine PGY-2 Documentation for date of: 04/13/24 Subjective Subjective Interval history: Patient examined at bedside today. No overnight events. Says that she had a bowel movement 2 days ago. Says her abdominal pain is okay and manageable at this time. No other complaints at this time Exam Vital Signs Temp Pulse Resp BP Pulse Ox O2 Del Method O2 Flow Rate 97.5 F 68 20 122/56 L 96 Room Air 1 04/13/24 12:00 04/13/24 12:00 04/13/24 12:00 04/13/24 12:00 04/13/24 12:00 04/13/24 12:00 04/12/24 16:00 Narrative Exam General: AAOx3, resting in bed HEENT: NCAT, PERRLA, EOMI, MMM, anicteric conjunctivae. Lungs: Clear MYRNA to auscultation and percussion, No accessory muscle use. Cardio: Normal S1/S2, regular rhythm, no murmurs, no JVD Abdomen: Soft, mild tenderness to palpation around wound VAC, no palpable masses, peristalsis present, no guarding or rebound. Wound VAC in place, but draining well Extremities: Symmetrical, no significant deformities, trace edema , non-tender, peripheral pulses presents. Neuro: AAOx3, patient was able to move all extremities. She is a lot more awake and responsive today. Was able to follow commands and answer all questions appropriately. Psych: Cooperative Objective Labs 04/13/24 08:15 04/13/24 08:15 Labs: Laboratory Results - last 24 hr 04/13/24 08:15 WBC 16.8 H RBC 4.20 Hgb 11.7 L Hct 35.3 L MCV 84 MCH 27.9 MCHC 33.1 RDW Std Deviation 52.7 H Plt Count 297 Neut % (Auto) 71 Lymph % (Auto) 14 [place] % (Auto) 7 Eos % (Auto) 1 Baso % (Auto) 1 Neut # (Auto) 11.9 H Lymph # (Auto) 2.4 [place] # (Auto) 1.2 H Eos # (Auto) 0.2 Baso # (Auto) 0.2 Immature Gran # (Auto) 0.98 H Absolute Nucleated RBC 0.02 H Immature Gran % 6 H Neutrophils % (Manual) 71 H Monocytes % (Manual) 5 Eosinophils % (Manual) 1 Metamyelocytes % 1 H Myelocytes % 2 H Nucleated RBC % 0 Band Neutrophils 3 Lymphocytes (Manual) 17 L Hypersegmented Polys 2+ Atypical Lymphocytes Rare Anisocytosis 1+ Sodium 137 Potassium 3.7 Chloride 106 Carbon Dioxide 22.8 Anion Gap 8 BUN 53 H Creatinine 1.5 H Estim Creat Clear Calc 30.9 L eGFR 35 L BUN/Creatinine Ratio 35 H Glucose 89 Calculated Osmolality 287 Calcium 8.4 Corrected Calcium 9.5 Total Bilirubin 0.3 AST 17 ALT 18 Alkaline Phosphatase 449 H D Total Protein 5.1 L Albumin 2.6 L Globulin 2.5 Albumin/Globulin Ratio 1.0 L ABG Interpretation ABG results: 03/21/24 05:40 ABG pH 7.35 ABG pCO2 41 ABG pO2 121 H ABG HCO3 23 ABG O2 Saturation 99 H ABG Base Excess -3 Quality Measures Quality Measures VTE prophylaxis and sepsis Current suspected stage: sepsis Possible source: skin/soft tissue Blood cultures ordered: yes Antibiotic ordered: Yes Advance care planning discussed with:: patient Assessment & Plan Assessment Current Active Medications: Generic Name Dose Route Start Last Admin Trade Name Freq PRN Reason Stop Dose Admin Acetaminophen 650 mg 04/12/24 08:33 04/13/24 09:54 Acetaminophen 325 Mg Tablet PO 05/12/24 08:32 650 mg Q4HR PRN Administration Fever >101 and abdominal pain Albuterol/Ipratropium 3 ml 03/21/24 15:51 Albuterol/Ipratropium (Duoneb) Rt Tia 3 Ml Nebu INH 04/20/24 18:59 Q4HRRT PRN Shortness of breath Diphenhydramine HCl 25 mg 04/09/24 00:50 04/13/24 05:26 Diphenhydramine Inj 50 Mg/Ml Vial IV 05/09/24 00:49 25 mg Q6HR PRN Administration ITCHING Docusate Sodium 100 mg 04/13/24 13:45 Docusate Sod 100 Mg Capsule PO 05/13/24 13:44 QDAY ASHISH Protocol Donepezil HCl 10 mg 03/21/24 21:00 04/12/24 20:55 Donepezil Hcl 5 Mg Tablet PO 04/20/24 20:59 10 mg HS ASHISH Administration Gabapentin 100 mg 04/10/24 14:00 04/13/24 05:06 Gabapentin 100 Mg Capsule PO 05/10/24 13:59 100 mg TID ASHISH Administration Heparin Sodium (Porcine) 5,000 unit 04/12/24 21:00 04/13/24 09:56 Heparin Sod Inj 5000 Unit/Ml Vial SC 04/26/24 20:59 5,000 unit BID ASHISH Administration Hydralazine HCl 10 mg 03/21/24 15:45 Hydralazine Hcl 10 Mg Tablet PO 04/20/24 17:59 Q6HR PRN SBP>160 Albumin Human 25 gm in 100 mls @ 100 mls/min 03/21/24 10:54 Albuminar-25 Ivpb IV PRN PRN DIALYSIS Levothyroxine Sodium 125 mcg/ 175 mcg 04/13/24 06:00 04/13/24 05:06 Levothyroxine Sodium 50 mcg PO 05/13/24 05:59 175 mcg ACBR ASHISH Administration Morphine Sulfate 0 mg 04/09/24 12:22 04/11/24 10:52 Morphine Sulf 1 Mg/Ml Python Django Developer Syringe 30 Ml KAIWHAKAHAERE 04/14/24 12:21 Not Given PER ORDER [facility] Protocol Ondansetron HCl 4 mg 03/21/24 06:08 04/08/24 20:53 Ondansetron Inj 2 Mg/Ml Inj 2 Ml IV 04/20/24 06:07 4 mg Q6H PRN Administration NAUSEA OR VOMITING Protocol Pantoprazole Sodium 40 mg 04/11/24 09:15 04/13/24 09:56 Pantoprazole Inj 40 Mg Vial IVP 05/11/24 09:14 40 mg QDAY ASHISH Administration Sodium Chloride 3 ml 03/21/24 08:25 Sodium Chloride Rt Tia 0.9% 3 Ml Nebu INH 04/20/24 08:24 PRN PRN SOLN Valproic Acid 750 mg 04/03/24 09:00 04/13/24 09:56 Valproic Acid Syrup 250 Mg/5 Ml Udc PO 05/03/24 08:59 750 mg BID ASHISH Administration Plan 78-year-old female with a past medical history of hypothyroidism, hypertension, JACKIE, asthma, depression, dementia, recurrent UTI, and is status post hemicolectomy with ileostomy admitted for acute uremic encephalopathy, stage III acute kidney injury admitted sepsis secondary to UTI versus intra-abdominal abscess. Hyperkalemic protocol initiated with 5 units of insulin, D50 and sevelamer as well as albuterol on admission. Patient received emergent dialysis for worsening renal function and electrolyte abnormalities. #S/P Reverse ileostomy, day four #Hx of Right colectomy with diverting ileostomy #Intra-abdominal fluid collection, possible abscess or infection #Reactive Leukocytosis Last bowel movement 2 days ago No antibiotics at this time Plan: ?Surgery on consult, appreciate recs ?Wound VAC ?Full liquid diet ?Pain control ?Physical therapy ?Continue wound care ?Continue to monitor CMP ?RD on consult, appreciate recs ?Encourage ambulation #Constipation Related to above Last bowel movement 2 days ago Plan: ? Colace daily, hold if diarrhea symptoms occur #Hypotension, resolved #Bradycardia, resolved #Hypothermia, resolved Patient was left ICU, was in there for 2 days for evaluation of hypothermia, bradycardia and hypotension which required pressor support (1) Bradycardia could have been attributed due to post op or medication side effect such as Ambien which she took before the symptoms started, however she has been taking Ambien for years Could be component of septic shock #MAKENZIE, stable Differential diagnosis: Prerenal versus possible ischemic ATN Patient might likely have prerenal MAKENZIE in the setting of poor oral intake. Patient has not been consuming 100% of meals. Creatinine 1.5 today Fluids Plan: ?Renally dose medicines ? Avoid nephrotoxic agents Plan: -IV fluids 50 cc/hour -Avoid nephrotoxins -Renally dose medications -Avoid diuretics and NSAIDs -Weigher And Charger Dr. Rahman following #Chronic insomnia Symptomatic currently, has not restarted home Ambien Plan: ? Holding Ambien in setting of bradycardia #Electrolyte imbalances #Hyperphosphatemia #Hyperkalemia, resolved #Hypomagnesemia, resolved Urgent dialysis indicated on admission, patient had temporary catheter placement. Holding dialysis for now because renal function is improving Phosphate at 5.7, likely related to MAKENZIE, will hold on treating, should lower once pt advances diet Plan: ? We[facility]her [employer] Dr. Rahman following ? Continue to monitor CMP #Normocytic anemia Hemoglobin has dropped from 11 to 8 status post ex lap, report says blood loss about 100 mL Will further workup blood loss Plan: ?*H&H #Euosmolar hyponatremia, resolved Possible component of dehydration leading to hyponatremia due to poor oral intake. Hyponatremia is likely also contributed to GI losses through colostomy bag. On physical examination, patient had very dry mucous membranes and often does not consume full meals. Sodium 139 today #E.Coli UTI, improving #History of recurrent UTI Patient initially reported dysuria and cloudy urine with hx of recurrent UTIs. CT A/P 03/31: Fluid collection 5.4 x 4.0 x 2.2 cm in subcutaneous fatty tissue anterior pelvic wall, differentials include abcess and hematoma Repeat Blood culture, negative x2 final. Urine cultures positive for E. coli, pansensitive. Plan: -Completed 1 week course of doxycycline and IV Zosyn from 03/21-04/02) -IV Zosyn (03/21-04/02) #New onset seizures #Complex partial seizures Suspicion of seizures marked by shakiness and blank staring. Teleneuro was consulted. CT head and CTA negative for any acute findings. Patient has been seizure free over 48hrs. New onset intermittent bilateral tremors noted. Patient denied any dizziness, headache, nausea, vomiting. New onset of seizures could be because patient stopped taking Depakote, is on 250 at home, takes Depakote for bipolar disorder Plan: -Neurologist Dr Brush consulted; suspected complex partial seizures and recommended doubling valproate dose in place of Keppra due to better side effect profile. -Valproate 750mg twice daily -Seizure precautions #History of hypothyroidism Patient has a history of hypothyroidism. She takes levothyroxine at home. Plan: ?Levothyroxine 137 mcg before breakfast #History of hypertension Chronic, uncontrolled Patient has a longstanding hypertension on both metoprolol and hydralazine. Plan ?Metoprolol tartrate 25mg BID ?Hydralazine 10mg Q6HR PRN for SBP >160 #History of depression #History of dementia #History of bipolar disorder #History of anxiety Patient takes valproate for bipolar, home dose 250 mg Patient experiencing anxiety currently, do not want to overly sedate patient Plan: ?*Gabapentin 100 mg 3 times daily -Donepezil 10mg daily -Valproate 750mg BID #History of asthma Plan: ? DuoNebs every 4 hours breathing treatment as needed #Hypochloremia-resolved #Hypocalcemia-resolved #Hyperphosphatemia-resolved #Sepsis, resolved #Acute encephalopathy uremic vs infectious-resolved #Health Maintenance Disposition: Telemetry DVT prophylaxis: Heparin GI prophylaxis: Protonix Diet: Full liquid diet CODE STATUS: Full Patient seen and care discussed with my senior resident, Dr. Sanchez, and my attending physician, Dr. Maru Hinson, PGY-1 Attending Provider Attestation/Addendum I have discussed and was present for the essential components of the history, physical examination, diagnosis, and treatment plan with the resident. I agree with the patient's care as documented by the resident and amended herein by me. Casey Mahoney DO. Patient seen and evaluated this AM. In short, patient is 78-year-old female with significant past medical history of hypertension, JACKIE, depression asthma, hypothyroidism, dementia, recurrent UTIs and hemicolectomy with ileostomy who was initially admitted for acute uremic encephalopathy, MAKENZIE and sepsis sepsis secondary to UTI and likely intra-abdominal abscesses. Admission also complicated with ICU stay for evaluation of possible shock which required pressor support. Patient now postop day 4 from ileostomy reversal with Dr. Flynn. Vital signs stable, patient afebrile overnight, no bowel movements reported however was reported the patient is passing gas. Hypoactive bowel sounds however on physical examination this morning. The patient wound looks clean, there is erythema around the surgical site however this was present from before surgery when the patient had her ileostomy with copious amounts of leaking. Significant labs today include a WBC of 16.8, slight uptrend from yesterday, BMP significant for a BUN of 53 and a creatinine of 1.5 which is improved from previous day, alk phos continues to downtrend at 449 today. Echo performed on 04/12 demonstrating normal LV size and function, grade 1 diastolic dysfunction, EF 65 to 70% with normal RV size and function. Trace MR, PI and mild TR were also observed as well as mild AV sclerosis without stenosis. 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 No bowel obstruction noted. Last blood cultures were on 04/11 demonstrated NGTD. Blood cultures all negative on this visit. Per general surgery, will continue full liquid diet, PT, antibiotics will be discontinued, we will also encourage mobility as the patient can tolerate. Will avoid nephrotoxic recommendations, continue IVF, will continue valproic acid 7 and 50 mg twice daily and seizure precautions for now, will continue home medications as appropriate to include levothyroxine 175 mcg daily. Continue to monitor closely while she is here. Patient will need SNF upon discharge which I suspect will be no sooner than 2 to 3 days.
[2024-04-13] MEDS: DONEPEZIL HCL 5 MG TABLET 10 MG PO (20:23)
[2024-04-14] VITALS (8 sets, daily range): BP systolic 129–144; BP diastolic 64–77; PULSE 84–134; RESP 15–97; TEMP 36–37.1; O2SAT 93–97; BMI 29.2
[2024-04-14] MEDS: LEVOTHYROXINE SODIUM 125 MCG, LEVOTHYROXINE SODIUM 50 MCG 175 MCG PO (05:00)
[2024-04-14] MEDS: GABAPENTIN 100 MG CAPSULE PO (05:00)
[2024-04-14] MEDS: ACETAMINOPHEN 325 MG TABLET 650 MG PO (05:00)
[2024-04-14 05:53] LABS: Basophils % (Auto) 0 % (0-2.5); Eosinophils # (Auto) 0.2 Thou/mm3 (0.0-0.5); Eosinophils % (Auto) 1 % (0-10); Hematocrit 36.4 % (36.0-46.0); Hemoglobin 12.2 g/dL (12.0-16.0); Immature Granulocytes % (Auto) 7 % (0-0); Immature Granulocytes Auto 1.04 Thou/mm3 (0.00-0.00); Lymphocytes # (Auto) 1.9 Thou/mm3 (1.0-4.8); Lymphocytes % (Auto) 13 % (10-50); Mean Corpuscular HGB Conc 33.5 g/dl (31.0-37.0); Mean Corpuscular Hemoglobin 28.4 pg (25.0-35.0); Mean Corpuscular Volume 85 fL (80-100); Monocytes # (Auto) 0.9 Thou/mm3 (0.0-0.8); Monocytes % (Auto) 6 % (0-12); Neutrophils # (Auto) 11.1 Thou/mm3 (1.8-7.7); Neutrophils % (Auto) 73 % (37-80); Nucleated Red Blood Cell # 0.03 Thou/mm3 (0.00-0.00); Nucleated Red Blood Cell % 0 /100 WBC (0); Platelet Count 229 Thou/mm3 (140-440); RDW Standard Deviation 51.8 fL (36.4-46.3); White Blood Count 15.2 Thou/mm3 (3.6-11.0)
[2024-04-14 06:40] LABS: Alanine Aminotransferase 8 U/L (10-49); Albumin, Serum 2.5 gm/dL (3.4-4.8); Alkaline Phosphatase 699 U/L (46-116); Anion Gap 8 (7-16); Aspartate Amino Transferase 21 U/L (0-34); BUN/Creatinine Ratio 35 Ratio (12-20); Bilirubin,Total 0.3 mg/dL (0.3-1.2); Blood Urea Nitrogen 42 mg/dL (9-23); Calcium 8.6 mg/dL (8.3-10.6); Calcium (Corrected) 9.8 mg/dL (8.5-10.1); Carbon Dioxide 23.9 mMol/L (20.0-31.0); Chloride 106 mMol/L (98-107); Creatinine (Component) 1.2 mg/dL (0.6-1.3); Estimated Creatinine Clearance 38.8 mL/min (>60); Globulin 2.6 gm/dL (2.3-3.5); Glucose 69 mg/dL (74-106); Magnesium 1.9 mg/dL (1.6-2.6); Osmolality,Calculated 284 (275-295); Phosphorous 2.5 mg/dL (2.4-5.1); Potassium 3.8 mMol/L (3.4-5.1); Sodium 138 mMol/L (136-145); Total Protein 5.1 gm/dL (5.7-8.2); eGFR 46 See Note
--- NOTE | 2024-04-14 08:32 | ESPR_ITS ---
<Statement entered by Yanet Huff MD - 04/14/24 19:14> The patient is examined and seen by me on rounds with resident physician Dr. Dey. patient apparently had had surgery abdominal surgery expiratory laparotomy had a bradycardia resolved now appears to be normal heart rate possible vagal immediate bradycardia patient is doing quite well no hemodynamic problems no cardiac issues. I agree with the treatment plan recommendation as follows documented by PGY 1 will follow the paent if necessary. Documentation for date of: 04/14/24 Subjective Subjective Interval history: Patient was seen and examined at bedside this morning. Overnight patient's had a few PVCs. Patient's EKG showed sinus rhythm with rate of 70. Patient's HR has been in the 90-100s Patient has good chronotropic response Patient does not have any cardiac complaints at this time Potassium 3.8 and magnesium 1.9, recommend to aggressively replete potassium magnesium to keep above 4 and 2 respectively Recommend to avoid any beta-blockers, calcium channel blockers, or any other rate controlling drugs given patient's sinus bradycardia. Patient's echo had the following findings: Normal LV size and function. Grade I diastolic dysfunction. Estimated EF 65-70% Normal RV size and function. Trace MR, PI, Mild TR. Mild AV sclerosis without stenosis Exam Vital Signs Temp Pulse Resp BP Pulse Ox O2 Del Method O2 Flow Rate 96.8 F 114 H 18 129/72 96 Room Air 1 04/14/24 04:00 04/14/24 06:46 04/14/24 06:46 04/14/24 04:00 04/14/24 06:46 04/14/24 04:00 04/12/24 16:00 Narrative Exam General: A/O x3, in mild distress due to pain Eyes: Patient's pupils are still sluggish. EOMI, patient grossly intact Ears: no visible ear discharge, Hearing grossly intact. Nose: No visible nasal discharge. Mouth/Throat: Dry mucous membranes, no redness, no lesions. Neck: Neck supple, non-tender, no cervical lymphadenopathy. Lungs: Clear MYRNA to auscultation and percussion, No accessory muscle use. Cardio: Normal S1/S2, regular rhythm, no murmurs, no JVD Abdomen: Soft, mild tenderness to palpation around wound VAC, no palpable masses, peristalsis present, no guarding or rebound. Wound VAC in place, but draining well Extremities: Symmetrical, no significant deformities, trace edema , non-tender, peripheral pulses presents. Skin: No rashes, no lesions, warm to touch. Neuro: Patient was able to move all extremities. She was able to answer all questions, but was in pain due to her wound VAC being changed today. Objective Labs 04/14/24 04:52 04/14/24 04:52 Labs: Laboratory Results - last 24 hr 04/13/24 04/14/24 08:15 04:52 WBC 16.8 H 15.2 H RBC 4.20 4.30 Hgb 11.7 L 12.2 Hct 35.3 L 36.4 MCV 84 85 MCH 27.9 28.4 MCHC 33.1 33.5 RDW Std Deviation 52.7 H 51.8 H Plt Count 297 229 D Neut % (Auto) 71 73 Lymph % (Auto) 14 13 [place] % (Auto) 7 6 Eos % (Auto) 1 1 Baso % (Auto) 1 0 Neut # (Auto) 11.9 H 11.1 H Lymph # (Auto) 2.4 1.9 [place] # (Auto) 1.2 H 0.9 H Eos # (Auto) 0.2 0.2 Baso # (Auto) 0.2 0.0 Immature Gran # (Auto) 0.98 H 1.04 H Absolute Nucleated RBC 0.02 H 0.03 H Immature Gran % 6 H 7 H Neutrophils % (Manual) 71 H Monocytes % (Manual) 5 Eosinophils % (Manual) 1 Metamyelocytes % 1 H Myelocytes % 2 H Nucleated RBC % 0 0 Band Neutrophils 3 Lymphocytes (Manual) 17 L Hypersegmented Polys 2+ Atypical Lymphocytes Rare Anisocytosis 1+ Sodium 137 138 Potassium 3.7 3.8 Chloride 106 106 Carbon Dioxide 22.8 23.9 Anion Gap 8 8 BUN 53 H 42 H Creatinine 1.5 H 1.2 Estim Creat Clear Calc 30.9 L 38.8 L eGFR 35 L 46 L BUN/Creatinine Ratio 35 H 35 H Glucose 89 69 L Calculated Osmolality 287 284 Calcium 8.4 8.6 Corrected Calcium 9.5 9.8 Phosphorus 2.5 Magnesium 1.9 Total Bilirubin 0.3 0.3 AST 17 21 ALT 18 8 L Alkaline Phosphatase 449 H D 699 H D Total Protein 5.1 L 5.1 L Albumin 2.6 L 2.5 L Globulin 2.5 2.6 Albumin/Globulin Ratio 1.0 L 1.0 L ABG Interpretation ABG results: 03/21/24 05:40 ABG pH 7.35 ABG pCO2 41 ABG pO2 121 H ABG HCO3 23 ABG O2 Saturation 99 H ABG Base Excess -3 Quality Measures Quality Measures VTE prophylaxis and sepsis Current suspected stage: ruled out Possible source: skin/soft tissue Blood cultures ordered: completed in ED Antibiotic ordered: No Advance care planning discussed with:: patient Assessment & Plan Assessment Current Active Medications: Generic Name Dose Route Start Last Admin Trade Name Freq PRN Reason Stop Dose Admin Acetaminophen 650 mg 04/12/24 08:33 04/14/24 05:00 Acetaminophen 325 Mg Tablet PO 05/12/24 08:32 650 mg Q4HR PRN Administration Fever >101 and abdominal pain Albuterol/Ipratropium 3 ml 03/21/24 15:51 Albuterol/Ipratropium (Duoneb) Rt Tia 3 Ml Nebu INH 04/20/24 18:59 Q4HRRT PRN Shortness of breath Diphenhydramine HCl 25 mg 04/09/24 00:50 04/13/24 05:26 Diphenhydramine Inj 50 Mg/Ml Vial IV 05/09/24 00:49 25 mg Q6HR PRN Administration ITCHING Docusate Sodium 100 mg 04/13/24 13:45 04/13/24 14:40 Docusate Sod 100 Mg Capsule PO 05/13/24 13:44 100 mg QDAY ASHISH Administration Protocol Donepezil HCl 10 mg 03/21/24 21:00 04/13/24 20:23 Donepezil Hcl 5 Mg Tablet PO 04/20/24 20:59 10 mg HS ASHISH Administration Gabapentin 100 mg 04/10/24 14:00 04/14/24 05:00 Gabapentin 100 Mg Capsule PO 05/10/24 13:59 100 mg TID ASHISH Administration Heparin Sodium (Porcine) 5,000 unit 04/12/24 21:00 04/13/24 20:24 Heparin Sod Inj 5000 Unit/Ml Vial SC 04/26/24 20:59 5,000 unit BID ASHISH Administration Hydralazine HCl 10 mg 03/21/24 15:45 Hydralazine Hcl 10 Mg Tablet PO 04/20/24 17:59 Q6HR PRN SBP>160 Albumin Human 25 gm in 100 mls @ 100 mls/min 03/21/24 10:54 Albuminar-25 Ivpb IV PRN PRN DIALYSIS Levothyroxine Sodium 125 mcg/ 175 mcg 04/13/24 06:00 04/14/24 05:00 Levothyroxine Sodium 50 mcg PO 05/13/24 05:59 175 mcg ACBR ASHISH Administration Ondansetron HCl 4 mg 03/21/24 06:08 04/08/24 20:53 Ondansetron Inj 2 Mg/Ml Inj 2 Ml IV 04/20/24 06:07 4 mg Q6H PRN Administration NAUSEA OR VOMITING Protocol Pantoprazole Sodium 40 mg 04/11/24 09:15 04/13/24 09:56 Pantoprazole Inj 40 Mg Vial IVP 05/11/24 09:14 40 mg QDAY ASHISH Administration Sodium Chloride 3 ml 03/21/24 08:25 Sodium Chloride Rt Tia 0.9% 3 Ml Nebu INH 04/20/24 08:24 PRN PRN SOLN Valproic Acid 750 mg 04/03/24 09:00 04/13/24 20:23 Valproic Acid Syrup 250 Mg/5 Ml Udc PO 05/03/24 08:59 750 mg BID ASHISH Administration Plan 78-year-old female with past medical history of hypothyroidism, hypertension, JACKIE, asthma, depression, bipolar disorder, dementia, recurrent UTIs, and 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 1. Symptomatic sinus bradycardia 2. Intermittent Atrial Arrhythmias, A-fib vs Atrial tachycardia? 3. Hypotension ? Sinus Bradycardia mostly likely vasovagal secondary to postop pain and nausea vs underlying sick sinus syndrome ? Patient's has atrial arrhythmias there is with evidence of significant frequent PACs. There was evidence of atrial arrhythmias which could be A-fib versus atrial tachycardia intermittently. At this time patient is rate controlled. ? Patient is currently off pressors and has good chronotropic response ? EKG yesterday showed sinus bradycardia with first-degree AV block ? Prior EKG on 04/09/2024 showed sinus rhythm with a heart rate was 76 and no AV block. ? Patient is not on beta-blockers at this time given her bradycardia -Patient's echo had the following findings: Normal LV size and function. Grade I diastolic dysfunction. Estimated EF 65-70% Normal RV size and function. Trace MR, PI, Mild TR. Mild AV sclerosis without stenosis Plan: ? No rate control medications including CCB or Beta blockers due to hypotension and bradycardia ? No anticoagulation at this time given possible GI bleed - Recommend repeat EKG, will follow-up on results. ? Recommend aggressive repletion of the potassium and magnesium, maintain above 4 and 2 respectively, to avoid any arrhythmias. ?Will continue to monitor patient's heart rate as she has been stable in the 60s overnight. 4. MAKENZIE 5. Acute uremic encephalopathy, resolved ?Patient initially came in with altered mental status and BUN of 121 with creatinine of 9.5. ? Patient's baseline creatinine was around 1 and BUN 27 on 02/16/2024 ?Recommend to follow-up with nephrology recommendations ?Continue current management as per primary care team 6. Sepsis secondary to UTI versus intra-abdominal abscess 7. E. coli UTI 8. Intra-abdominal abscess 9. 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 Patient had an I&D on 04/01/2024 by general surgery ? Patient had a ex lap with reversal ileostomy on 04/09/2024 by general surgery ?Patient is currently off antibiotics ?Recommend to continue current management as per primary care team 10. Normocytic normochromic anemia ?Patient's hemoglobin has been in the 8-9's prior to admission ? On admission patient's hemoglobin was 12.6, today 12.2 ? Could be due to blood loss from surgery versus hemodilutional versus GI bleed ? Recommend close monitoring and to transfuse if hemoglobin less than 7 11. Complex partial seizures, new onset ?Patient had an episode of shakiness and blank stare on 03/26/2024 ? EEG was normal and MRI was unrevealing ?Patient currently on valproic acid ? Recommend to follow neurology recommendations 12. Pseudohyponatremia, resolved ?Patient's initial sodium was 123 with osmolality of 286 ?Continue current management as per primary care team 13. Hx of hypothyroidism 14. Hx of asthma 15. Hx of depression 16. Hx of bipolar disorder 17. Hx of dementia 18. Hx of JACKIE ?Continue current management as per primary care team Continue rest of management as per primary team. We are grateful to be able to participate in Mrs. Shell's care. Thank you for the consult Plan of care discussed with attending Mass Spectroscopist, Dr. Refugio Arce MD PGY-1
--- NOTE | 2024-04-14 08:32 | PD.SURPROG ---
Documentation for date of: 04/14/24 Subjective Subjective Brief History: 78F with HTN, CHF, hypothyroidism who underwent right hemicolectomy with diverting ileostomy for fecal contamination 12/19, admitted in past for MAKENZIE here now with AMS and acute renal failure, planned for emergent HD. Workup shows leukocytosis and possible abdominal fluid collection PMH: HTN, CHF, hypothyroidism, bipolar disorder PSHx: Tonsillectomy, appendectomy, cholecystectomy, hysterectomy, R hemicolectomy with diverting ileostomy 12/19 for benign necrotic mass Meds: no anticoagulation Allergies: haldol, naproxen, fluoxetine Social hx: Nonsmoker Narrative: No acute changes, WBC stable at 15, remaining afebrile Exam Vital Signs Temp Pulse Resp BP Pulse Ox O2 Del Method O2 Flow Rate 96.8 F 114 H 18 129/72 96 Room Air 1 04/14/24 04:00 04/14/24 06:46 04/14/24 06:46 04/14/24 04:00 04/14/24 06:46 04/14/24 04:00 04/12/24 16:00 Constitutional Constitutional: no acute distress Routine Respiratory Exam Respiratory: Present no resp distress Routine Abdominal Exam Abdominal: Present soft and wound (midline wound with beefy red granulation tissue, no bleeding, minimal surrounding erythema); Absent tenderness or distended Results Results: Laboratory Laboratory results: results reviewed Assessment & Plan Plan 78F with HTN, CHF, hypothyroidism who underwent right hemicolectomy with diverting ileostomy for fecal contamination 12/19, admitted with acute renal failure, improved from that standpoint, now s/p ileostomy reversal 04/09, postop course significant for hypothermia and bradycardia requiring transfer to ICU, now improved continuing to await bowel function Pain control PRN FLD, advance after BM Procedures Procedures Exploratory laparotomy, reversal of ileostomy
[2024-04-14] MEDS: DEXTROSE 50%-WATER INJ 50 ML SYRINGE IV (08:53)
[2024-04-14] MEDS: VALPROIC ACID SYRUP 250 MG/5 ML UDC 750 MG PO ×2 (08:53→21:26)
[2024-04-14] MEDS: HEPARIN SOD INJ 5000 UNIT/ML VIAL SC ×2 (08:54→21:25)
[2024-04-14] MEDS: PANTOPRAZOLE INJ 40 MG VIAL IVP (08:54)
[2024-04-14] MEDS: POLYETHYLENE GLYCOL 17 GM PACKET PO (08:54)
[2024-04-14] MEDS: DOCUSATE SOD 100 MG CAPSULE PO (08:54)
[2024-04-14] MEDS: HYDROcodone/APAP 5/325 TABLET 1 TAB PO (09:54)
--- NOTE | 2024-04-14 10:29 | PD.RESPRO ---
Documentation for date of: 04/14/24 Subjective Subjective Interval history: Interval history: 78 y/o F with PMHx significant for hypothyroidism, hypertension, JACKIE, asthma, depression, dementia, recurrent UTI, and is status post hemicolectomy with ileostomy presents with altered mental status and nausea and vomiting. Patient initially presented to ED with altered mentation and was not able to provide history. Subsequently given 2.5 L of fluids per sepsis protocol and mentation slowly improved. Upon evaluation, patient endorsed 2 to 3 days of nausea and vomiting along with decreased p.o. intake. Also endorses abdominal pain at ileostomy site, decreased ileostomy output, as well as dysuria and cloudy urine but denies fever or chills. Otherwise also denies shortness of breath or chest discomfort. Of note, patient recently discharged on 02/15 for ileostomy leakage/malfunction. CT head unremarkable. CT A/P showed Soft tissue mass in the anterior abdominal wall 2.8 x 2.2 cm and aggregate of small bowel versus abscess in the right lower abdomen poorly defined, at least 4 cm in dimension. Patient recieved IVF, magnesisum, zosyn and rocephin in ED. Labs showed sodium 125, potassium 6.6, BUN 134, Composition Floor Layer 9.3, eGFR 4, Corrected Ca 8.3, phos 10.7, Mg 1.1. Patient has no known history CKD. On exam patient was lethargic but responsive, followed commands, A&Ox3. Appears euvolemic. Nephrology consulted for acute renal failure, plan for emergent dialysis. 04/03/2024 patient currently seen in medical floor. Resting comfortably. Still having significant colostomy losses. CT abdomen with contrast results reviewed. Labs, medications reviewed. Patient feeling much better. Encouraged encourage p.o. fluids. Dialysis catheter was removed. Still leaking around the colostomy site. Surgeon on the case. s/p I&D - abscess. On gentle IV fluids. Creatinine 1.4. Possible surgery this week. Renal giordano no further recommendations. Will follow as needed. 04/11/2024 patient seen in ICU, was upgraded to ICU overnight due to concern of septic shock, patient was given 500 cc bolus twice overnight no improvement in MAP hence was eventually started on Levophed drip and was transferred to ICU for further care. Patient's BUN 61, creatinine 2.2, GFR 22, corrected calcium 8.9, magnesium 1.4, sodium 135. Patient is not fluid responsive per ICU assessment. Patient's MAKENZIE worsen possibly in setting of ischemia from underlying shock. 04/12/24: Patient was seen and examined by the bedside in the ICU. Patient is awake, answering questions, reports feeling better. Urine output is 700 ml. Creatinine has improved 1.9. Bedside ultrasound showed plethoric IVC and previously fluid bolus did not improve MAP so patient is not fluid responsive. Currently on Zosyn. 04/13/24: Patient was seen in telemetry. Downgraded overnight. Patient is alert, awake and conversational, renal function improving, will continue to monitor. Patient has no current complaints, reports improvement. Urine output 690 ml. Creatinine 1.5, BUN 53, GFR 35. Encouraged to work with physical therapy, will monitor renal function and electrolytes. 04/14/24:Patient seen in telemetry, sleepy, reports feeling tired. Patient is conversational, BUN 42, Cr 1.2, GFR 46, renal function improving. Was hypoglycemic this morning was given dextrose in AM, has wound vac intact, general surgery following the case. Still has on and off pain, denies having a bowel movement. Will continue to follow renal function and electrolytes. Exam Vital Signs Temp Pulse Resp BP Pulse Ox O2 Del Method O2 Flow Rate 97.3 F 84 20 134/67 H 93 L Room Air 1 04/14/24 08:00 04/14/24 08:00 04/14/24 08:00 04/14/24 08:00 04/14/24 08:00 04/14/24 08:00 04/12/24 16:00 Narrative Exam General: A/O x3, resting in bed, tired, sleepy HEENT: NCAT, PERRLA, EOMI, MMM, anicteric conjunctivae. Lungs: Clear MYRNA to auscultation and percussion, No accessory muscle use. Cardio: Normal S1/S2, regular rhythm, no murmurs, no JVD Abdomen: Soft, mild tenderness to palpation around wound VAC, no palpable masses, peristalsis present, no guarding or rebound. Wound VAC in place, but draining well Extremities: Symmetrical, no significant deformities, trace edema , non-tender, peripheral pulses presents. Neuro: Patient was able to move all extremities. Reports feeling tired. Was able to follow commands and answer all questions appropriately. Objective Labs 04/15/24 04:33 04/15/24 04:33 Labs: Laboratory Results - last 24 hr 04/13/24 04/14/24 08:15 04:52 WBC 15.2 H RBC 4.30 Hgb 12.2 Hct 36.4 MCV 85 MCH 28.4 MCHC 33.5 RDW Std Deviation 51.8 H Plt Count 229 D Neut % (Auto) 73 Lymph % (Auto) 13 [place] % (Auto) 6 Eos % (Auto) 1 Baso % (Auto) 0 Neut # (Auto) 11.1 H Lymph # (Auto) 1.9 [place] # (Auto) 0.9 H Eos # (Auto) 0.2 Baso # (Auto) 0.0 Immature Gran # (Auto) 1.04 H Absolute Nucleated RBC 0.03 H Immature Gran % 7 H Nucleated RBC % 0 Sodium 137 138 Potassium 3.7 3.8 Chloride 106 106 Carbon Dioxide 22.8 23.9 Anion Gap 8 8 BUN 53 H 42 H Creatinine 1.5 H 1.2 Estim Creat Clear Calc 30.9 L 38.8 L eGFR 35 L 46 L BUN/Creatinine Ratio 35 H 35 H Glucose 89 69 L Calculated Osmolality 287 284 Calcium 8.4 8.6 Corrected Calcium 9.5 9.8 Phosphorus 2.5 Magnesium 1.9 Total Bilirubin 0.3 0.3 AST 17 21 ALT 18 8 L Alkaline Phosphatase 449 H D 699 H D Total Protein 5.1 L 5.1 L Albumin 2.6 L 2.5 L Globulin 2.5 2.6 Albumin/Globulin Ratio 1.0 L 1.0 L ABG Interpretation ABG results: 03/21/24 05:40 ABG pH 7.35 ABG pCO2 41 ABG pO2 121 H ABG HCO3 23 ABG O2 Saturation 99 H ABG Base Excess -3 Quality Measures Quality Measures VTE prophylaxis and sepsis Current suspected stage: ruled out Possible source: skin/soft tissue Blood cultures ordered: completed in ED Antibiotic ordered: No Advance care planning discussed with:: patient Assessment & Plan Assessment Current Active Medications: Generic Name Dose Route Start Last Admin Trade Name Freq PRN Reason Stop Dose Admin Acetaminophen 650 mg 04/12/24 08:33 04/14/24 05:00 Acetaminophen 325 Mg Tablet PO 05/12/24 08:32 650 mg Q4HR PRN Administration Fever >101 and abdominal pain Hydrocodone Bitart/Acetaminophen 1 tab 04/14/24 09:37 04/14/24 09:54 Hydrocodone/Apap 5/325 Tablet PO 04/19/24 09:36 1 tab Q12H PRN Administration Pain 4-7 Albuterol/Ipratropium 3 ml 03/21/24 15:51 Albuterol/Ipratropium (Duoneb) Rt Tia 3 Ml Nebu INH 04/20/24 18:59 Q4HRRT PRN Shortness of breath Diphenhydramine HCl 25 mg 04/09/24 00:50 04/13/24 05:26 Diphenhydramine Inj 50 Mg/Ml Vial IV 05/09/24 00:49 25 mg Q6HR PRN Administration ITCHING Docusate Sodium 100 mg 04/13/24 13:45 04/14/24 08:54 Docusate Sod 100 Mg Capsule PO 05/13/24 13:44 100 mg QDAY ASHISH Administration Protocol Donepezil HCl 10 mg 03/21/24 21:00 04/13/24 20:23 Donepezil Hcl 5 Mg Tablet PO 04/20/24 20:59 10 mg HS ASHISH Administration Gabapentin 100 mg 04/10/24 14:00 04/14/24 05:00 Gabapentin 100 Mg Capsule PO 05/10/24 13:59 100 mg TID ASHISH Administration Heparin Sodium (Porcine) 5,000 unit 04/12/24 21:00 04/14/24 08:54 Heparin Sod Inj 5000 Unit/Ml Vial SC 04/26/24 20:59 5,000 unit BID ASHISH Administration Hydralazine HCl 10 mg 03/21/24 15:45 Hydralazine Hcl 10 Mg Tablet PO 04/20/24 17:59 Q6HR PRN SBP>160 Albumin Human 25 gm in 100 mls @ 100 mls/min 03/21/24 10:54 Albuminar-25 Ivpb IV PRN PRN DIALYSIS Levothyroxine Sodium 125 mcg/ 175 mcg 04/13/24 06:00 04/14/24 05:00 Levothyroxine Sodium 50 mcg PO 05/13/24 05:59 175 mcg ACBR ASHISH Administration Ondansetron HCl 4 mg 03/21/24 06:08 04/08/24 20:53 Ondansetron Inj 2 Mg/Ml Inj 2 Ml IV 04/20/24 06:07 4 mg Q6H PRN Administration NAUSEA OR VOMITING Protocol Pantoprazole Sodium 40 mg 04/11/24 09:15 04/14/24 08:54 Pantoprazole Inj 40 Mg Vial IVP 05/11/24 09:14 40 mg QDAY ASHISH Administration Polyethylene Glycol 17 gm 04/14/24 09:00 04/14/24 08:54 Polyethylene Glycol 17 Gm Packet PO 05/14/24 08:59 17 gm QDAY ASHISH Administration Sodium Chloride 3 ml 03/21/24 08:25 Sodium Chloride Rt Tia 0.9% 3 Ml Nebu INH 04/20/24 08:24 PRN PRN SOLN Valproic Acid 750 mg 04/03/24 09:00 04/14/24 08:53 Valproic Acid Syrup 250 Mg/5 Ml Udc PO 05/03/24 08:59 750 mg BID ASHISH Administration Plan 78 y/o F with PMHx significant for hypothyroidism, hypertension, JACKIE, asthma, depression, dementia, recurrent UTI, and is status post hemicolectomy with ileostomy admitted for acute uremic encephalopathy, stage III acute kidney injury, sepsis secondary to UTI versus intra-abdominal abscess. #Acute kidney injury-suspect patient in ischemic ATN , improving #Acute Uremic Encephalopathy, resolved Patient received 2 dialysis treatments and started to make good urine. Dialysis was discontinued and catheter removed. Creatinine improved to 1.6, sodium 136. -s/p CT abdomen with IV contrast . Continue with gentle IV hydration. Patient is status post reversal of ileostomy day 2, patient was upgraded to ICU overnight due to concern of septic shock, patient was given 500 cc bolus twice overnight no improvement in MAP hence was eventually started on Levophed drip and was transferred to ICU for further care. Downgraded to Telemetry (04/13) overnight, stable, A&O X3, conversational, off pressors. 04/14: Patient's BUN 42, creatinine 1.2, GFR 46, improving. Was hypoglycemic in AM was given IV Dextrose, reports feeling tired. Still has on and off pain, denies having a bowel movement. General Surgery following the case. Plan of care discussed with primary team -Encourage PO Oral intake and Physical Therapy -Will monitor renal function in a.m. 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 Plan of care discussed with primary team, Dr. Flynn-did the reversal of ileostomy with wound VAC #Complex partial seizures, new onset #Normocytic normochromic anemia #Electrolyte imbalances #Hypothyroidism #Hypertension #Depression #Dementia Management as per primary team. Plan of care discussed with attending Dr. Rahman. Darian Shirley PGY-1 Attending Provider Attestation/Addendum Patient seen and examined with resident physician Dr. Shirley. Note reviewed, agree with findings and recommendations. Patient moved to telemetry. Tolerating breakfast. Denies any chest pain, shortness of breath. Sepsis resolved. Creatinine started to trend down. Increase p.o. intake. Status post exploratory laparotomy and ileostomy reversal. Surgeon on the case. On broad-spectrum antibiotics.
--- NOTE | 2024-04-14 11:00 | CHAP ---
Patient was visited by the Spiritual Care Volunteer who prayed for them. (Volunteer was in the hospital from [facility]. 10:00-11:00)
[2024-04-14] MEDS: HYDROmorphone INJ 2 MG/ML VIAL 0.5 MG IM (11:43)
--- NOTE | 2024-04-14 13:27 | PCS.ST ---
Swallow Evaluation completed. See report for details. Pt can tolerate purees without upper denture plate when cleared to advance diet. Dysphagia 1 offers more nutritional value than full liquids.
[2024-04-14] MEDS: GABAPENTIN 100 MG CAPSULE 200 MG PO ×2 (13:47→21:31)
--- NOTE | 2024-04-14 14:07 | ESPR_ITS ---
<Statement entered by Familia Sanchez MD - 04/14/24 16:02> Patient was seen and examined at bedside. Patient is complaining of abdominal pain. She was given [facility] 10/325 and increased gabapentin to 200mg TID. We reached out to Dr. Ross to update her regarding the wound. She mentions that the patient was improving and it has improved since admission. Patient last bowel movement was 3 days ago. She got MiraLAX by the general surgeon. Will advance her diet as soon as she has a bowel movement as per the general surgery recommendations. Patient antibiotic was discontinued by the general surgeon Dr. Ross. Patient blood sugar was 69 today this morning for that reason we will put the patient on hypoglycemia protocol. We noticed that there is mild elevation of alkaline phosphatase to 699, will keep monitoring. Her blood culture and sensitivity came back negative. The nurses has difficulty establishing IV lines for the patient. Will reevaluate tomorrow if the patient needs more IV medications we might consider placing a PICC line. - Patient's plan and care discussed with my attending, Dr. Maru Sanchez MD Internal Medicine PGY-2 Documentation for date of: 04/14/24 Subjective Subjective Interval history: Pt examined at bedside today. No acute overnight events. She is complaining abdominal pain, constant, rated a 10. She is also requesting to use the bathroom and have a bowel movement. No other complaints at this time. Exam Vital Signs Temp Pulse Resp BP Pulse Ox O2 Del Method O2 Flow Rate 97.6 F 134 H 17 144/77 H 97 Room Air 1 04/14/24 12:00 04/14/24 12:04/14/24 12:04/14/24 12:04/14/24 12:04/14/24 12:04/12/24 16:00 Narrative Exam General: AAOx3, resting in bed HEENT: NCAT, PERRLA, EOMI, MMM, anicteric conjunctivae. Lungs: Clear MYRNA to auscultation and percussion, No accessory muscle use. Cardio: Normal S1/S2, regular rhythm, no murmurs, no JVD Abdomen: Soft, mild tenderness to palpation around wound VAC, no palpable masses, peristalsis present, no guarding or rebound. Wound VAC in place, but draining well, erythematous abdomen Extremities: Symmetrical, no significant deformities, trace edema , non-tender, peripheral pulses presents. Neuro: AAOx3, patient was able to move all extremities. She is a lot more awake and responsive today. Was able to follow commands and answer all questions appropriately. Psych: Cooperative Objective Labs 04/17/24 04:25 04/17/24 04:25 Labs: Laboratory Results - last 24 hr 04/14/24 04:52 WBC 15.2 H RBC 4.30 Hgb 12.2 Hct 36.4 MCV 85 MCH 28.4 MCHC 33.5 RDW Std Deviation 51.8 H Plt Count 229 D Neut % (Auto) 73 Lymph % (Auto) 13 Dunn % (Auto) 6 Eos % (Auto) 1 Baso % (Auto) 0 Neut # (Auto) 11.1 H Lymph # (Auto) 1.9 Dunn # (Auto) 0.9 H Eos # (Auto) 0.2 Baso # (Auto) 0.0 Immature Gran # (Auto) 1.04 H Absolute Nucleated RBC 0.03 H Immature Gran % 7 H Nucleated RBC % 0 Sodium 138 Potassium 3.8 Chloride 106 Carbon Dioxide 23.9 Anion Gap 8 BUN 42 H Creatinine 1.2 Estim Creat Clear Calc 38.8 L eGFR 46 L BUN/Creatinine Ratio 35 H Glucose 69 L Calculated Osmolality 284 Calcium 8.6 Corrected Calcium 9.8 Phosphorus 2.5 Magnesium 1.9 Total Bilirubin 0.3 AST 21 ALT 8 L Alkaline Phosphatase 699 H D Total Protein 5.1 L Albumin 2.5 L Globulin 2.6 Albumin/Globulin Ratio 1.0 L ABG Interpretation ABG results: 03/21/24 05:40 ABG pH 7.35 ABG pCO2 41 ABG pO2 121 H ABG HCO3 23 ABG O2 Saturation 99 H ABG Base Excess -3 Quality Measures Quality Measures VTE prophylaxis and sepsis Current suspected stage: ruled out Possible source: skin/soft tissue Blood cultures ordered: completed in ED Antibiotic ordered: No Advance care planning discussed with:: patient Assessment & Plan Assessment Current Active Medications: Generic Name Dose Route Start Last Admin Trade Name Freq PRN Reason Stop Dose Admin Acetaminophen 650 mg 04/12/24 08:33 04/14/24 05:00 Acetaminophen 325 Mg Tablet PO 05/12/24 08:32 650 mg Q4HR PRN Administration Fever >101 and abdominal pain Hydrocodone Bitart/Acetaminophen 1 tab 04/14/24 09:37 04/14/24 09:54 Hydrocodone/Apap 5/325 Tablet PO 04/19/24 09:36 1 tab Q12H PRN Administration Pain 4-7 Albuterol/Ipratropium 3 ml 03/21/24 15:51 Albuterol/Ipratropium (Duoneb) Rt Tia 3 Ml Nebu INH 04/20/24 18:59 Q4HRRT PRN Shortness of breath Dextrose 25 ml 04/14/24 11:20 Dextrose 50%-Water Inj 50 Ml Syringe IV 05/14/24 11:19 Q15MIN PRN BG 50-70 responsive npo pt Dextrose 50 ml 04/14/24 11:20 Dextrose 50%-Water Inj 50 Ml Syringe IV 05/14/24 11:19 Q15MIN PRN BG <50 OR BG <70 & pt unresponsive Diphenhydramine HCl 25 mg 04/09/24 00:50 04/13/24 05:26 Diphenhydramine Inj 50 Mg/Ml Vial IV 05/09/24 00:49 25 mg Q6HR PRN Administration ITCHING Docusate Sodium 100 mg 04/13/24 13:45 04/14/24 08:54 Docusate Sod 100 Mg Capsule PO 05/13/24 13:44 100 mg QDAY ASHISH Administration Protocol Donepezil HCl 10 mg 03/21/24 21:00 04/13/24 20:23 Donepezil Hcl 5 Mg Tablet PO 04/20/24 20:59 10 mg HS ASHISH Administration Gabapentin 200 mg 04/14/24 14:00 04/14/24 13:47 Gabapentin 100 Mg Capsule PO 05/14/24 13:59 200 mg TID ASHISH Administration Glucagon 1 mg 04/14/24 11:20 Glucagon Inj 1 Mg Vial IM Q15MIN PRN BG <70, and no IV access Heparin Sodium (Porcine) 5,000 unit 04/12/24 21:00 04/14/24 08:54 Heparin Sod Inj 5000 Unit/Ml Vial SC 04/26/24 20:59 5,000 unit BID ASHISH Administration Hydralazine HCl 10 mg 03/21/24 15:45 Hydralazine Hcl 10 Mg Tablet PO 04/20/24 17:59 Q6HR PRN SBP>160 Albumin Human 25 gm in 100 mls @ 100 mls/min 03/21/24 10:54 Albuminar-25 Ivpb IV PRN PRN DIALYSIS Levothyroxine Sodium 125 mcg/ 175 mcg 04/13/24 06:00 04/14/24 05:00 Levothyroxine Sodium 50 mcg PO 05/13/24 05:59 175 mcg ACBR ASHISH Administration Ondansetron HCl 4 mg 03/21/24 06:08 04/08/24 20:53 Ondansetron Inj 2 Mg/Ml Inj 2 Ml IV 04/20/24 06:07 4 mg Q6H PRN Administration NAUSEA OR VOMITING Protocol Pantoprazole Sodium 40 mg 04/11/24 09:15 04/14/24 08:54 Pantoprazole Inj 40 Mg Vial IVP 05/11/24 09:14 40 mg QDAY ASHISH Administration Polyethylene Glycol 17 gm 04/14/24 09:00 04/14/24 08:54 Polyethylene Glycol 17 Gm Packet PO 05/14/24 08:59 17 gm QDAY ASHISH Administration Sodium Chloride 3 ml 03/21/24 08:25 Sodium Chloride Rt Tia 0.9% 3 Ml Nebu INH 04/20/24 08:24 PRN PRN SOLN Valproic Acid 750 mg 04/03/24 09:00 04/14/24 08:53 Valproic Acid Syrup 250 Mg/5 Ml Udc PO 05/03/24 08:59 750 mg BID ASHISH Administration Plan 78-year-old female with a past medical history of hypothyroidism, hypertension, JACKIE, asthma, depression, dementia, recurrent UTI, and is status post hemicolectomy with ileostomy admitted for acute uremic encephalopathy, stage III acute kidney injury admitted sepsis secondary to UTI versus intra-abdominal abscess. Hyperkalemic protocol initiated with 5 units of insulin, D50 and sevelamer as well as albuterol on admission. Patient received emergent dialysis for worsening renal function and electrolyte abnormalities. #S/P Reverse ileostomy, post operative day 5 #Hx of Right colectomy with diverting ileostomy #Intra-abdominal fluid collection, possible abscess or infection #Reactive Leukocytosis, improving Last bowel movement 2 days ago Wants to use the restroom today Concern for patient she is requesting pain medication at the time, however this lowered her blood pressure last time and that is when she went to ICU Want to limit narcotics for patient due to concerns for bowel function Avoiding Toradol due to patient recently having resolved MAKENZIE Spoke with Dr. Flynn, who recommends increasing gabapentin, doing low-dose [facility] as needed and lidocaine patch if needed Patient is having poor vascular access at this time Gave 0.5 Dilaudid intramuscularly x 1 Plan: ?Surgery on consult, appreciate recs ?Wound VAC ?Full liquid diet ?Pain control ?Physical therapy ?Continue wound care ?Continue to monitor CMP ?RD on consult, appreciate recs ?Encourage ambulation ?Pain control with gabapentin 200 3 times daily, [facility] 5 every 12 as needed #Constipation Related to above Last bowel movement 2 days ago As above Plan: ? Colace daily, hold if diarrhea symptoms occur #Hypoglycemia Secondary to poor oral intake, and patient being on liquid diet Plan: ?D50 x1 ?Hypoglycemic protocol in place #MAKENZIE, stable Differential diagnosis: Prerenal versus possible ischemic ATN Patient might likely have prerenal MAKENZIE in the setting of poor oral intake. Patient has not been consuming 100% of meals. Creatinine 1.2 today Plan: ?Renally dose medicines ? Avoid nephrotoxic agents #Hypotension, resolved #Bradycardia, resolved #Hypothermia, resolved Patient was left ICU, was in there for 2 days for evaluation of hypothermia, bradycardia and hypotension which required pressor support (1) Bradycardia could have been attributed due to post op or medication side effect such as Ambien which she took before the symptoms started, however she has been taking Ambien for years Could be component of septic shock #Chronic insomnia Symptomatic currently, has not restarted home Ambien Plan: ?Holding Ambien in setting of bradycardia ?Gabapentin 200 mg 3 times daily #Electrolyte imbalances #Hyperphosphatemia #Hyperkalemia, resolved #Hypomagnesemia, resolved Urgent dialysis indicated on admission, patient had temporary catheter placement. Holding dialysis for now because renal function is improving Phosphate at 5.7, likely related to MAKENZIE, will hold on treating, should lower once pt advances diet Plan: ? Optical Fabricator Dr. Rahman following ? Continue to monitor CMP #Normocytic anemia Hemoglobin has dropped from 11 to 8 status post ex lap, report says blood loss about 100 mL Will further workup blood loss Plan: ?*H&H #Euosmolar hyponatremia, resolved Possible component of dehydration leading to hyponatremia due to poor oral intake. Hyponatremia is likely also contributed to GI losses through colostomy bag. On physical examination, patient had very dry mucous membranes and often does not consume full meals. Sodium 139 today #E.Coli UTI, improving #History of recurrent UTI Patient initially reported dysuria and cloudy urine with hx of recurrent UTIs. CT A/P 03/31: Fluid collection 5.4 x 4.0 x 2.2 cm in subcutaneous fatty tissue anterior pelvic wall, differentials include abcess and hematoma Repeat Blood culture, negative x2 final. Urine cultures positive for E. coli, pansensitive. Plan: -Completed 1 week course of doxycycline and IV Zosyn from 03/21-04/02) -IV Zosyn (03/21-04/02) #New onset seizures #Complex partial seizures Suspicion of seizures marked by shakiness and blank staring. Teleneuro was consulted. CT head and CTA negative for any acute findings. Patient has been seizure free over 48hrs. New onset intermittent bilateral tremors noted. Patient denied any dizziness, headache, nausea, vomiting. New onset of seizures could be because patient stopped taking Depakote, is on 250 at home, takes Depakote for bipolar disorder Plan: -Neurologist Dr Brush consulted; suspected complex partial seizures and recommended doubling valproate dose in place of Keppra due to better side effect profile. -Valproate 750mg twice daily -Seizure precautions #History of hypothyroidism Patient has a history of hypothyroidism. She takes levothyroxine at home. Plan: ?Levothyroxine 175 mcg before breakfast #History of hypertension Chronic, uncontrolled Patient has a longstanding hypertension on both metoprolol and hydralazine. Plan ?Metoprolol tartrate 25mg BID ?Hydralazine 10mg Q6HR PRN for SBP >160 #History of depression #History of dementia #History of bipolar disorder #History of anxiety Patient takes valproate for bipolar, home dose 250 mg Patient experiencing anxiety currently, do not want to overly sedate patient Plan: ?Gabapentin 200 mg 3 times daily -Donepezil 10mg daily -Valproate 750mg BID #History of asthma Plan: ? DuoNebs every 4 hours breathing treatment as needed #Hypochloremia-resolved #Hypocalcemia-resolved #Hyperphosphatemia-resolved #Sepsis, resolved #Acute encephalopathy uremic vs infectious-resolved #Health Maintenance Disposition: Telemetry DVT prophylaxis: Heparin GI prophylaxis: Protonix Diet: Full liquid diet CODE STATUS: Full Patient seen and care discussed with my senior resident, Dr. Sanchez, and my attending physician, Dr. Maru Hinson, PGY-1 Attending Provider Attestation/Addendum I have discussed and was present for the essential components of the history, physical examination, diagnosis, and treatment plan with the resident. I agree with the patient's care as documented by the resident and amended herein by me. Casey Mahoney, DO. Although this document has been carefully reviewed, there may still be some phonetic and other typographical errors. These errors are purely grammatical due to imperfections in the software program and should not be construed in any way to compromise the substance of the patient's medical care during this visit.
--- NOTE | 2024-04-14 14:38 | PC.SS ---
[facility] has been closed on line.
--- NOTE | 2024-04-14 14:56 | PC.SS ---
Rounding Note: Plan is to advance the patient's diet. Surgery recommendations are pending.
--- NOTE | 2024-04-14 16:09 | PC.SS ---
[employer] informed patient's daughter that SNF placement will require co-payment. Patient's daughter to discuss with patient ability to cover co-payment. If patient elects to not discharge to SNF, then plan will be d/c home with [facility]. Patient previously aligned with [facility].
[2024-04-14] MEDS: DONEPEZIL HCL 5 MG TABLET 10 MG PO (21:27)
[2024-04-15] VITALS (7 sets, daily range): BP systolic 128–145; BP diastolic 59–84; PULSE 79–109; RESP 10–18; TEMP 35.9–36.6; O2SAT 95–99; BMI 29.1
[2024-04-15] MEDS: HYDROcodone/APAP 5/325 TABLET 1 TAB PO (00:03)
--- NOTE | 2024-04-15 00:57 | PC.NURSE ---
PT REFUSED IV INSERTION AT THIS TIME.
[2024-04-15] MEDS: LEVOTHYROXINE SODIUM 125 MCG, LEVOTHYROXINE SODIUM 50 MCG 175 MCG PO (05:44)
[2024-04-15] MEDS: GABAPENTIN 100 MG CAPSULE 200 MG PO ×3 (05:45→21:34)
[2024-04-15 05:46] LABS: Basophils % (Auto) 0 % (0-2.5); Eosinophils # (Auto) 0.1 Thou/mm3 (0.0-0.5); Eosinophils % (Auto) 1 % (0-10); Hematocrit 34.1 % (36.0-46.0); Hemoglobin 11.2 g/dL (12.0-16.0); Immature Granulocytes % (Auto) 7 % (0-0); Immature Granulocytes Auto 0.96 Thou/mm3 (0.00-0.00); Lymphocytes % (Auto) 15 % (10-50); Mean Corpuscular HGB Conc 32.8 g/dl (31.0-37.0); Mean Corpuscular Hemoglobin 28.2 pg (25.0-35.0); Mean Corpuscular Volume 86 fL (80-100); Monocytes # (Auto) 0.9 Thou/mm3 (0.0-0.8); Monocytes % (Auto) 7 % (0-12); Neutrophils # (Auto) 9.6 Thou/mm3 (1.8-7.7); Neutrophils % (Auto) 71 % (37-80); Nucleated Red Blood Cell % 0 /100 WBC (0); Platelet Count 201 Thou/mm3 (140-440); RDW Standard Deviation 53.4 fL (36.4-46.3); Red Blood Count 3.97 Miln/mm3 (4.00-5.20); White Blood Count 13.6 Thou/mm3 (3.6-11.0)
[2024-04-15 06:06] LABS: Alanine Aminotransferase 14 U/L (10-49); Albumin, Serum 2.5 gm/dL (3.4-4.8); Alkaline Phosphatase 649 U/L (46-116); Anion Gap 8 (7-16); Aspartate Amino Transferase 20 U/L (0-34); BUN/Creatinine Ratio 38 Ratio (12-20); Bilirubin,Total 0.2 mg/dL (0.3-1.2); Blood Urea Nitrogen 38 mg/dL (9-23); Calcium 8.3 mg/dL (8.3-10.6); Calcium (Corrected) 9.5 mg/dL (8.5-10.1); Carbon Dioxide 24.1 mMol/L (20.0-31.0); Chloride 107 mMol/L (98-107); Estimated Creatinine Clearance 46.5 mL/min (>60); Globulin 2.5 gm/dL (2.3-3.5); Glucose 82 mg/dL (74-106); Magnesium 1.5 mg/dL (1.6-2.6); Osmolality,Calculated 285 (275-295); Phosphorous 2.3 mg/dL (2.4-5.1); Sodium 139 mMol/L (136-145); eGFR 57 See Note
[2024-04-15] MEDS: ONDANSETRON INJ 2 MG/ML INJ 2 ML 4 MG IV (07:12)
--- NOTE | 2024-04-15 08:02 | ESPR_ITS ---
Documentation for date of: 04/15/24 Subjective Subjective Interval history: Interval history: 78 y/o F with PMHx significant for hypothyroidism, hypertension, JACKIE, asthma, depression, dementia, recurrent UTI, and is status post hemicolectomy with ileostomy presents with altered mental status and nausea and vomiting. Patient initially presented to ED with altered mentation and was not able to provide history. Subsequently given 2.5 L of fluids per sepsis protocol and mentation slowly improved. Upon evaluation, patient endorsed 2 to 3 days of nausea and vomiting along with decreased p.o. intake. Also endorses abdominal pain at ileostomy site, decreased ileostomy output, as well as dysuria and cloudy urine but denies fever or chills. Otherwise also denies shortness of breath or chest discomfort. Of note, patient recently discharged on 02/15 for ileostomy leakage/malfunction. CT head unremarkable. CT A/P showed Soft tissue mass in the anterior abdominal wall 2.8 x 2.2 cm and aggregate of small bowel versus abscess in the right lower abdomen poorly defined, at least 4 cm in dimension. Patient recieved IVF, magnesisum, zosyn and rocephin in ED. Labs showed sodium 125, potassium 6.6, BUN 134, [employer] 9.3, eGFR 4, Corrected Ca 8.3, phos 10.7, Mg 1.1. Patient has no known history CKD. On exam patient was lethargic but responsive, followed commands, A&Ox3. Appears euvolemic. Nephrology consulted for acute renal failure, plan for emergent dialysis. 04/03/2024 patient currently seen in medical floor. Resting comfortably. Still having significant colostomy losses. CT abdomen with contrast results reviewed. Labs, medications reviewed. Patient feeling much better. Encouraged encourage p.o. fluids. Dialysis catheter was removed. Still leaking around the colostomy site. Surgeon on the case. s/p I&D - abscess. On gentle IV fluids. Creatinine 1.4. Possible surgery this week. Renal giordano no further recommendations. Will follow as needed. 04/12/24: Patient was seen and examined by the bedside in the ICU. Patient is awake, answering questions, reports feeling better. Urine output is 700 ml. Creatinine has improved 1.9. Bedside ultrasound showed plethoric IVC and previously fluid bolus did not improve MAP so patient is not fluid responsive. Currently on Zosyn. 04/13/24: Patient was seen in telemetry. Downgraded overnight. Patient is alert, awake and conversational, renal function improving, will continue to monitor. Patient has no current complaints, reports improvement. Urine output 690 ml. Creatinine 1.5, BUN 53, GFR 35. Encouraged to work with physical therapy, will monitor renal function and electrolytes. 04/14/24:Patient seen in telemetry, sleepy, reports feeling tired. Patient is conversational, BUN 42, Cr 1.2, GFR 46, renal function improving. Was hypoglycemic this morning was given dextrose in AM, has wound vac intact, general surgery following the case. Still has on and off pain, denies having a bowel movement. Will continue to follow renal function and electrolytes. 04/15/24:Patient seen in telemetry, awake, conversational, reports she had a bowel movement. Patient is complaining of pain and discomfort, BUN 38, Cr 1.0, GFR 57, Creatinine is back to baseline, poor PO intake. Has wound vac intact with drainage, general surgery following the case. Nephrology will be signing off of the case as patient's renal function is back to baseline. Exam Vital Signs Temp Pulse Resp BP Pulse Ox O2 Del Method O2 Flow Rate 97.9 F 109 H 10 L 141/66 H 96 Room Air 1 04/15/24 04:00 04/15/24 07:28 04/15/24 07:28 04/15/24 04:00 04/15/24 07:28 04/15/24 04:00 04/12/24 16:00 Narrative Exam General: A/O x3, resting in bed, tired, complaining of pain. HEENT: NCAT, PERRLA, EOMI, MMM, anicteric conjunctivae. Lungs: Clear MYRNA to auscultation and percussion, No accessory muscle use. Cardio: Normal S1/S2, regular rhythm, no murmurs, no JVD Abdomen: Soft, mild tenderness to palpation around wound VAC, no palpable masses, peristalsis present, no guarding or rebound. Wound VAC in place, but draining well Extremities: Symmetrical, no significant deformities, trace edema, non-tender, peripheral pulses presents. Neuro: Patient was able to move all extremities. A/OX3, conversational. Was able to follow commands and answer all questions appropriately. Objective Labs 04/16/24 04:18 04/16/24 04:18 Labs: Laboratory Results - last 24 hr 04/15/24 04:33 WBC 13.6 H RBC 3.97 L Hgb 11.2 L Hct 34.1 L MCV 86 MCH 28.2 MCHC 32.8 RDW Std Deviation 53.4 H Plt Count 201 Neut % (Auto) 71 Lymph % (Auto) 15 [place] % (Auto) 7 Eos % (Auto) 1 Baso % (Auto) 0 Neut # (Auto) 9.6 H Lymph # (Auto) 2.0 [place] # (Auto) 0.9 H Eos # (Auto) 0.1 Baso # (Auto) 0.0 Immature Gran # (Auto) 0.96 H Absolute Nucleated RBC 0.00 Immature Gran % 7 H Nucleated RBC % 0 Sodium 139 Potassium 4.0 Chloride 107 Carbon Dioxide 24.1 Anion Gap 8 BUN 38 H Creatinine 1.0 Estim Creat Clear Calc 46.5 L eGFR 57 L BUN/Creatinine Ratio 38 H Glucose 82 Calculated Osmolality 285 Calcium 8.3 Corrected Calcium 9.5 Phosphorus 2.3 L Magnesium 1.5 L Total Bilirubin 0.2 L AST 20 ALT 14 Alkaline Phosphatase 649 H D Total Protein 5.0 L Albumin 2.5 L Globulin 2.5 Albumin/Globulin Ratio 1.0 L ABG Interpretation ABG results: 03/21/24 05:40 ABG pH 7.35 ABG pCO2 41 ABG pO2 121 H ABG HCO3 23 ABG O2 Saturation 99 H ABG Base Excess -3 Quality Measures Quality Measures VTE prophylaxis and sepsis Current suspected stage: ruled out Possible source: skin/soft tissue Blood cultures ordered: completed in ED Antibiotic ordered: Yes Advance care planning discussed with:: patient Assessment & Plan Assessment Current Active Medications: Generic Name Dose Route Start Last Admin Trade Name Freq PRN Reason Stop Dose Admin Acetaminophen 650 mg 04/12/24 08:33 04/14/24 05:00 Acetaminophen 325 Mg Tablet PO 05/12/24 08:32 650 mg Q4HR PRN Administration Fever >101 and abdominal pain Hydrocodone Bitart/Acetaminophen 1 tab 04/14/24 09:37 04/15/24 00:03 Hydrocodone/Apap 5/325 Tablet PO 04/19/24 09:36 1 tab Q12H PRN Administration Pain 4-7 Dextrose 25 ml 04/14/24 11:20 Dextrose 50%-Water Inj 50 Ml Syringe IV 05/14/24 11:19 Q15MIN PRN BG 50-70 responsive npo pt Dextrose 50 ml 04/14/24 11:20 Dextrose 50%-Water Inj 50 Ml Syringe IV 05/14/24 11:19 Q15MIN PRN BG <50 OR BG <70 & pt unresponsive Diphenhydramine HCl 25 mg 04/09/24 00:50 04/13/24 05:26 Diphenhydramine Inj 50 Mg/Ml Vial IV 05/09/24 00:49 25 mg Q6HR PRN Administration ITCHING Docusate Sodium 100 mg 04/13/24 13:45 04/14/24 08:54 Docusate Sod 100 Mg Capsule PO 05/13/24 13:44 100 mg QDAY ASHISH Administration Protocol Donepezil HCl 10 mg 03/21/24 21:00 04/14/24 21:27 Donepezil Hcl 5 Mg Tablet PO 04/20/24 20:59 10 mg HS ASHISH Administration Gabapentin 200 mg 04/14/24 14:00 04/15/24 05:45 Gabapentin 100 Mg Capsule PO 05/14/24 13:59 200 mg TID ASHISH Administration Glucagon 1 mg 04/14/24 11:20 Glucagon Inj 1 Mg Vial IM Q15MIN PRN BG <70, and no IV access Heparin Sodium (Porcine) 5,000 unit 04/12/24 21:00 04/14/24 21:25 Heparin Sod Inj 5000 Unit/Ml Vial SC 04/26/24 20:59 5,000 unit BID ASHISH Administration Hydralazine HCl 10 mg 03/21/24 15:45 Hydralazine Hcl 10 Mg Tablet PO 04/20/24 17:59 Q6HR PRN SBP>160 Albumin Human 25 gm in 100 mls @ 100 mls/min 03/21/24 10:54 Albuminar-25 Ivpb IV PRN PRN DIALYSIS Levothyroxine Sodium 125 mcg/ 175 mcg 04/13/24 06:00 04/15/24 05:44 Levothyroxine Sodium 50 mcg PO 05/13/24 05:59 175 mcg ACBR ASHISH Administration Ondansetron HCl 4 mg 03/21/24 06:08 04/15/24 07:12 Ondansetron Inj 2 Mg/Ml Inj 2 Ml IV 04/20/24 06:07 4 mg Q6H PRN Administration NAUSEA OR VOMITING Protocol Pantoprazole Sodium 40 mg 04/15/24 09:00 Pantoprazole 40 Mg Tablet PO 05/15/24 08:59 QDAY ASHISH Polyethylene Glycol 17 gm 04/14/24 09:00 04/14/24 08:54 Polyethylene Glycol 17 Gm Packet PO 05/14/24 08:59 17 gm QDAY ASHISH Administration Sodium Chloride 3 ml 03/21/24 08:25 Sodium Chloride Rt Tia 0.9% 3 Ml Nebu INH 04/20/24 08:24 PRN PRN SOLN Valproic Acid 750 mg 04/03/24 09:00 04/14/24 21:26 Valproic Acid Syrup 250 Mg/5 Ml Udc PO 05/03/24 08:59 750 mg BID ASHISH Administration Plan 78 y/o F with PMHx significant for hypothyroidism, hypertension, JACKIE, asthma, depression, dementia, recurrent UTI, and is status post hemicolectomy with ileostomy admitted for acute uremic encephalopathy, stage III acute kidney injury, sepsis secondary to UTI versus intra-abdominal abscess. #Acute kidney injury-suspect patient in ischemic ATN , improving #Acute Uremic Encephalopathy, resolved Patient received 2 dialysis treatments and started to make good urine. Dialysis was discontinued and catheter removed. Creatinine improved to 1.6, sodium 136. -s/p CT abdomen with IV contrast . Continue with gentle IV hydration. Patient is status post reversal of ileostomy day 2, patient was upgraded to ICU overnight due to concern of septic shock, patient was given 500 cc bolus twice overnight no improvement in MAP hence was eventually started on Levophed drip and was transferred to ICU for further care. Downgraded to Telemetry (04/13) overnight, stable, A&O X3, conversational, off pressors. 04/15: Patient's BUN 38, Cr 1.0, GFR 57, improving. Creatinine back to baseline. Reports she had a bowel movement today. General Surgery following the case. Continues to have poor p.o. intake Plan of care discussed with primary team Plan: -Encourage PO Oral intake and Physical Therapy -Will monitor renal function in a.m. 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 Plan of care discussed with primary team, Dr. Flynn-did the reversal of ileostomy with wound VAC #Complex partial seizures, new onset #Normocytic normochromic anemia #Electrolyte imbalances #Hypothyroidism #Hypertension #Depression #Dementia Management as per primary team. Plan of care discussed with attending Dr. Rahman. Darian Shirley PGY-1 Attending Provider Attestation/Addendum Patient seen and examined with resident physician Dr. Shirley. Note reviewed, agree with findings and recommendations. Patient moved to telemetry. Tolerating breakfast. Denies any chest pain, shortness of breath. Sepsis resolved. Creatinine started to trend down. Increase p.o. intake. Status post exploratory laparotomy and ileostomy reversal. Surgeon on the case. On antibiotics. Cr 1.0- renal will sign off.
[2024-04-15] MEDS: VALPROIC ACID SYRUP 250 MG/5 ML UDC 750 MG PO ×2 (10:01→21:11)
[2024-04-15] MEDS: Magnesium Sulfate 4 GM Ivpb 4 GM/50 ML BAG IV (10:01)
[2024-04-15] MEDS: HEPARIN SOD INJ 5000 UNIT/ML VIAL SC ×2 (10:01→21:20)
[2024-04-15] MEDS: PANTOPRAZOLE 40 MG TABLET PO (10:01)
[2024-04-15] MEDS: SOD PHOS ADDITIVE 15 MMOL in SODIUM CHLORIDE 0.9% 250 ML 250 ML 62.5 MMOL IV (10:03)
[2024-04-15] MEDS: NAPH,KPH MBDB 1 PACKET (1.5 GM) PO (11:40)
[2024-04-15] MEDS: MAGNESIUM OXIDE 400 MG TABLET PO (11:40)
[2024-04-15] MEDS: ONDANSETRON ODT 4 MG TABRAP PO (11:40)
--- NOTE | 2024-04-15 13:27 | ESPR_ITS ---
Documentation for date of: 04/15/24 Subjective Subjective Interval history: Patient states that she is not in pain. She reports multiple bowel movements overnight. She reports nausea even after receiving Zofran. Patient vomited after drinking orange juice this morning. She has no other complaints. Exam Vital Signs Temp Pulse Resp BP Pulse Ox O2 Del Method O2 Flow Rate 97.1 F 79 15 130/70 98 Room Air 1 04/15/24 12:00 04/15/24 12:00 04/15/24 12:00 04/15/24 12:00 04/15/24 12:00 04/15/24 12:00 04/12/24 16:00 Narrative Exam General: A&Ox3, resting in bed HEENT: NCAT, PERRLA, EOMI, MMM, anicteric conjunctivae. Lungs: CTAB, no wheezes Cardio: Normal S1/S2, regular rhythm, no murmurs, no JVD Abdomen: Soft, mild tenderness to palpation around wound VAC, Wound VAC in place and draining well, erythematous abdomen Extremities: Symmetrical, no significant deformities, trace edema , non-tender, peripheral pulses presents. Neuro: A&Ox3, patient was able to move all extremities Objective Labs 04/16/24 04:18 04/16/24 04:18 Labs: Laboratory Results - last 24 hr 04/15/24 04:33 WBC 13.6 H RBC 3.97 L Hgb 11.2 L Hct 34.1 L MCV 86 MCH 28.2 MCHC 32.8 RDW Std Deviation 53.4 H Plt Count 201 Neut % (Auto) 71 Lymph % (Auto) 15 [place] % (Auto) 7 Eos % (Auto) 1 Baso % (Auto) 0 Neut # (Auto) 9.6 H Lymph # (Auto) 2.0 [place] # (Auto) 0.9 H Eos # (Auto) 0.1 Baso # (Auto) 0.0 Immature Gran # (Auto) 0.96 H Absolute Nucleated RBC 0.00 Immature Gran % 7 H Nucleated RBC % 0 Sodium 139 Potassium 4.0 Chloride 107 Carbon Dioxide 24.1 Anion Gap 8 BUN 38 H Creatinine 1.0 Estim Creat Clear Calc 46.5 L eGFR 57 L BUN/Creatinine Ratio 38 H Glucose 82 Calculated Osmolality 285 Calcium 8.3 Corrected Calcium 9.5 Phosphorus 2.3 L Magnesium 1.5 L Total Bilirubin 0.2 L AST 20 ALT 14 Alkaline Phosphatase 649 H D Total Protein 5.0 L Albumin 2.5 L Globulin 2.5 Albumin/Globulin Ratio 1.0 L ABG Interpretation ABG results: 03/21/24 05:40 ABG pH 7.35 ABG pCO2 41 ABG pO2 121 H ABG HCO3 23 ABG O2 Saturation 99 H ABG Base Excess -3 Quality Measures Quality Measures VTE prophylaxis and sepsis Current suspected stage: ruled out Possible source: skin/soft tissue Blood cultures ordered: completed in ED Antibiotic ordered: No Advance care planning discussed with:: patient Assessment & Plan Assessment Current Active Medications: Generic Name Dose Route Start Last Admin Trade Name Freq PRN Reason Stop Dose Admin Acetaminophen 650 mg 04/12/24 08:33 04/14/24 05:00 Acetaminophen 325 Mg Tablet PO 05/12/24 08:32 650 mg Q4HR PRN Administration Fever >101 and abdominal pain Hydrocodone Bitart/Acetaminophen 1 tab 04/14/24 09:37 04/15/24 00:03 Hydrocodone/Apap 5/325 Tablet PO 04/19/24 09:36 1 tab Q12H PRN Administration Pain 4-7 Dextrose 25 ml 04/14/24 11:20 Dextrose 50%-Water Inj 50 Ml Syringe IV 05/14/24 11:19 Q15MIN PRN BG 50-70 responsive npo pt Dextrose 50 ml 04/14/24 11:20 Dextrose 50%-Water Inj 50 Ml Syringe IV 05/14/24 11:19 Q15MIN PRN BG <50 OR BG <70 & pt unresponsive Diphenhydramine HCl 25 mg 04/09/24 00:50 04/13/24 05:26 Diphenhydramine Inj 50 Mg/Ml Vial IV 05/09/24 00:49 25 mg Q6HR PRN Administration ITCHING Docusate Sodium 100 mg 04/15/24 09:20 Docusate Sod 100 Mg Capsule PO 05/13/24 13:44 QDAY PRN CONSTIPATION Protocol Donepezil HCl 10 mg 03/21/24 21:00 04/14/24 21:27 Donepezil Hcl 5 Mg Tablet PO 04/20/24 20:59 10 mg HS ASHISH Administration Gabapentin 200 mg 04/14/24 14:00 04/15/24 05:45 Gabapentin 100 Mg Capsule PO 05/14/24 13:59 200 mg TID ASHISH Administration Glucagon 1 mg 04/14/24 11:20 Glucagon Inj 1 Mg Vial IM Q15MIN PRN BG <70, and no IV access Heparin Sodium (Porcine) 5,000 unit 04/12/24 21:00 04/15/24 10:01 Heparin Sod Inj 5000 Unit/Ml Vial SC 04/26/24 20:59 5,000 unit BID ASHISH Administration Hydralazine HCl 10 mg 03/21/24 15:45 Hydralazine Hcl 10 Mg Tablet PO 04/20/24 17:59 Q6HR PRN SBP>160 Albumin Human 25 gm in 100 mls @ 100 mls/min 03/21/24 10:54 Albuminar-25 Ivpb IV PRN PRN DIALYSIS Levothyroxine Sodium 125 mcg/ 175 mcg 04/13/24 06:00 04/15/24 05:44 Levothyroxine Sodium 50 mcg PO 05/13/24 05:59 175 mcg ACBR AHSISH Administration Lidocaine HCl 30 ml 04/15/24 12:38 Lidocaine Hcl 1% 20 Ml Vial INFL X1 PRN PIV insertion Ondansetron HCl 4 mg 03/21/24 06:08 04/15/24 07:12 Ondansetron Inj 2 Mg/Ml Inj 2 Ml IV 04/20/24 06:07 4 mg Q6H PRN Administration NAUSEA OR VOMITING Protocol Pantoprazole Sodium 40 mg 04/15/24 09:00 04/15/24 10:01 Pantoprazole 40 Mg Tablet PO 05/15/24 08:59 40 mg QDAY ASHISH Administration Polyethylene Glycol 17 gm 04/15/24 09:20 Polyethylene Glycol 17 Gm Packet PO 05/14/24 08:59 QDAY PRN CONSTIPATION Protocol Sodium Chloride 3 ml 03/21/24 08:25 Sodium Chloride Rt Tia 0.9% 3 Ml Nebu INH 04/20/24 08:24 PRN PRN SOLN Valproic Acid 750 mg 04/03/24 09:00 04/15/24 10:01 Valproic Acid Syrup 250 Mg/5 Ml Udc PO 05/03/24 08:59 750 mg BID ASHISH Administration Plan 78-year-old female with a past medical history of hypothyroidism, hypertension, JACKIE, asthma, depression, dementia, recurrent UTI, and is status post hemicolectomy with ileostomy admitted for acute uremic encephalopathy, stage III acute kidney injury admitted sepsis secondary to UTI versus intra-abdominal abscess. Hyperkalemic protocol initiated with 5 units of insulin, D50 and sevelamer as well as albuterol on admission. Patient received emergent dialysis for worsening renal function and electrolyte abnormalities. #S/P Reverse ileostomy, post operative day 6 #Hx of Right colectomy with diverting ileostomy #Intra-abdominal fluid collection, possible abscess or infection #Reactive Leukocytosis, improving Spoke with Dr. Flynn, who recommends increasing gabapentin, doing low-dose [place] as needed and lidocaine patch if needed Patient is having poor vascular access at this time ?Surgery on consult, appreciate recs ?Wound VAC ?Full liquid diet ?Multimodal pain control ?Physical therapy ?Continue wound care ?RD on consult, appreciate recs ?Encourage ambulation ?Pain control with gabapentin 200 3 times daily, [place] 5 every 12hr as needed #Constipation-resolved Postsurgical constipation Resolved with Colace and MiraLAX -Will hold laxatives #Hypoglycemia Secondary to poor oral intake, and patient being on liquid diet ?D50 x1 ?Hypoglycemic protocol in place #MAKENZIE, stable Differential diagnosis: Prerenal versus possible ischemic ATN Patient might likely have prerenal MAKENZIE in the setting of poor oral intake. Patient has not been consuming 100% of meals. Creatinine 1 today ?Renally dose medicines ? Avoid nephrotoxic agents #Hypotension, resolved #Bradycardia, resolved #Hypothermia, resolved Patient was left ICU, was in there for 2 days for evaluation of hypothermia, bradycardia and hypotension which required pressor support (1) Bradycardia could have been attributed due to post op or medication side effect such as Ambien which she took before the symptoms started, however she has been taking Ambien for years Could be component of septic shock #Chronic insomnia Symptomatic currently, has not restarted home Ambien ?Holding Ambien in setting of bradycardia ?Gabapentin 200 mg 3 times daily #Electrolyte imbalances #Hyperphosphatemia-resolved #Hyperkalemia, resolved #Hypomagnesemia Urgent dialysis indicated on admission, patient had temporary catheter placement. Holding dialysis for now because renal function is improving Plan: ? Well Drill Operator [employer] Dr. Rahman signing off given improved renal function ? Continue to monitor CMP #Normocytic anemia Hemoglobin has dropped from 11 to 8 status post ex lap, report says blood loss about 100 mL Anemia has improved back to baseline at 11 -CBC trend #Euosmolar hyponatremia, resolved Possible component of dehydration leading to hyponatremia due to poor oral intake. Hyponatremia is likely also contributed to GI losses through colostomy bag. On physical examination, patient had very dry mucous membranes and often does not consume full meals. Sodium 139 today #E.Coli UTI, improving #History of recurrent UTI Patient initially reported dysuria and cloudy urine with hx of recurrent UTIs. CT A/P 03/31: Fluid collection 5.4 x 4.0 x 2.2 cm in subcutaneous fatty tissue anterior pelvic wall, differentials include abcess and hematoma Repeat Blood culture, negative x2 final. Urine cultures positive for E. coli, pansensitive. -Completed 1 week course of doxycycline and IV Zosyn from 03/21-04/02) #New onset seizures #Complex partial seizures Suspicion of seizures marked by shakiness and blank staring. Teleneuro was consulted. CT head and CTA negative for any acute findings. Patient has been seizure free since New onset intermittent bilateral tremors noted. Patient denied any dizziness, headache, nausea, vomiting. New onset of seizures could be because patient stopped taking Depakote, is on 250 at home, takes Depakote for bipolar disorder -Neurologist Dr Brush consulted; suspected complex partial seizures and recommended doubling valproate dose in place of Keppra due to better side effect profile. -Valproate 750mg twice daily -Seizure precautions #History of hypothyroidism Patient has a history of hypothyroidism. She takes levothyroxine at home. ?Levothyroxine 175 mcg before breakfast #History of hypertension Chronic, uncontrolled Patient has a longstanding hypertension on both metoprolol and hydralazine. Plan ?Metoprolol tartrate 25mg BID ?Hydralazine 10mg Q6HR PRN for SBP >160 #History of depression #History of dementia #History of bipolar disorder #History of anxiety Patient takes valproate for bipolar, home dose 250 mg Patient experiencing anxiety currently, do not want to overly sedate patient Plan: ?Gabapentin 200 mg 3 times daily -Donepezil 10mg daily -Valproate 750mg BID #History of asthma Plan: ? DuoNebs every 4 hours breathing treatment as needed #Hypochloremia-resolved #Hypocalcemia-resolved #Hyperphosphatemia-resolved #Sepsis, resolved #Acute encephalopathy uremic vs infectious-resolved #Health Maintenance Disposition: Telemetry DVT prophylaxis: Heparin GI prophylaxis: Protonix Diet: Full liquid diet-> advancing as tolerated CODE STATUS: Full The patient's plan was discussed with attending Dr. Bermudez and senior resident Dr. Carlos Valencia, DO PGY1 Internal Medicine Senior resident attestation: Patient evaluated and examined at the bedside, plan of care discussed with rest of the team including my attending physician, except as noted. Patient continues to be somnolent on evaluation, denied having pain, but is tender on abdominal exam, has a wound VAC drain out of the midline incision, surrounding erythema seems stable, per wound care nurse erythema most likely secondary to skin breakdown due to close proximity of the previous high output ileostomy. Patient is not on any antibiotics currently, WBC count and no fever, not concerned about cellulitis at the moment. Pending general surgery recommendations, patient is on full liquid diet, had 1 episode of vomiting. Bowel sounds audible. Drowsiness possibly related to medication side effect as patient is taking low-dose opioids in addition to antiseizure medications. Patient had no IV access this morning, but peripheral IV access was successfully gained later in the afternoon. Consider PICC line if indicated. 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 Was initiated. During course of hospitalization, patient did receive multiple hemodialysis session and plan for reversing the ileostomy. As of now, continue to monitor closely. As for mentation, patient is alert and oriented to name, date of and place and kidney function improving without need for further hemodialysis. Will follow-up with general surgery regarding reversal of ileostomy. Overnight, patient has a wound VAC in place and no acute events overnight. Plan to continue wound VAC and in the next 1 to 2 days patient will need PT and possibly discharge in the next 48 to 72 hours. I reviewed above note and agree with findings and plans. I have also personally examined the patient with medicine team and went over assessment and plan with medical team including planning intern and resident physician.
[2024-04-15] MEDS: DONEPEZIL HCL 5 MG TABLET 10 MG PO (21:12)
[2024-04-16] VITALS: BP 127/63; PULSE 75; PULSE 80; RESP 16; TEMP 36.1; O2SAT 96
[2024-04-16 04:00] VITALS: BP 155/67; PULSE 73; PULSE 76; RESP 16; TEMP 36.6; O2SAT 97
[2024-04-16] MEDS: GABAPENTIN 100 MG CAPSULE 200 MG PO (05:10)
[2024-04-16] MEDS: LEVOTHYROXINE SODIUM 125 MCG, LEVOTHYROXINE SODIUM 50 MCG 175 MCG PO (05:10)
[2024-04-16 05:35] VITALS: BMI 29.0
[2024-04-16 05:50] LABS: Basophils % (Auto) 0 % (0-2.5); Eosinophils # (Auto) 0.1 Thou/mm3 (0.0-0.5); Eosinophils % (Auto) 1 % (0-10); Hematocrit 36.7 % (36.0-46.0); Hemoglobin 11.9 g/dL (12.0-16.0); Immature Granulocytes % (Auto) 11 % (0-0); Immature Granulocytes Auto 1.06 Thou/mm3 (0.00-0.00); Lymphocytes # (Auto) 2.3 Thou/mm3 (1.0-4.8); Lymphocytes % (Auto) 24 % (10-50); Mean Corpuscular HGB Conc 32.4 g/dl (31.0-37.0); Mean Corpuscular Hemoglobin 28.4 pg (25.0-35.0); Mean Corpuscular Volume 88 fL (80-100); Monocytes # (Auto) 0.9 Thou/mm3 (0.0-0.8); Monocytes % (Auto) 9 % (0-12); Neutrophils # (Auto) 5.2 Thou/mm3 (1.8-7.7); Neutrophils % (Auto) 54 % (37-80); Nucleated Red Blood Cell % 0 /100 WBC (0); Platelet Count 225 Thou/mm3 (140-440); RDW Standard Deviation 54.6 fL (36.4-46.3); Red Blood Count 4.19 Miln/mm3 (4.00-5.20); White Blood Count 9.7 Thou/mm3 (3.6-11.0)
[2024-04-16 06:18] LABS: Alanine Aminotransferase 11 U/L (10-49); Albumin, Serum 2.4 gm/dL (3.4-4.8); Alkaline Phosphatase 523 U/L (46-116); Anion Gap 6 (7-16); Aspartate Amino Transferase < 10 U/L (0-34); BUN/Creatinine Ratio 33 Ratio (12-20); Bilirubin,Total 0.2 mg/dL (0.3-1.2); Blood Urea Nitrogen 30 mg/dL (9-23); Calcium 8.5 mg/dL (8.3-10.6); Calcium (Corrected) 9.8 mg/dL (8.5-10.1); Chloride 109 mMol/L (98-107); Creatinine (Component) 0.9 mg/dL (0.6-1.3); Estimated Creatinine Clearance 51.6 mL/min (>60); Globulin 2.5 gm/dL (2.3-3.5); Glucose 75 mg/dL (74-106); Magnesium 1.4 mg/dL (1.6-2.6); Osmolality,Calculated 284 (275-295); Phosphorous 2.4 mg/dL (2.4-5.1); Potassium 4.1 mMol/L (3.4-5.1); Sodium 140 mMol/L (136-145); Total Protein 4.9 gm/dL (5.7-8.2); eGFR > 60 See Note
[2024-04-16 08:00] VITALS: BP 131/56; PULSE 74; RESP 15; TEMP 36.1; O2SAT 99
[2024-04-16] MEDS: Magnesium Sulfate 4 GM Ivpb 4 GM/50 ML BAG IV (08:00)
[2024-04-16] MEDS: PANTOPRAZOLE 40 MG TABLET PO (08:00)
[2024-04-16] MEDS: VALPROIC ACID SYRUP 250 MG/5 ML UDC 750 MG PO ×2 (08:00→21:28)
[2024-04-16] MEDS: HEPARIN SOD INJ 5000 UNIT/ML VIAL SC ×2 (08:50→21:28)
[2024-04-16 12:00] VITALS: BP 135/64; PULSE 67; RESP 21; TEMP 36.5; O2SAT 99
--- NOTE | 2024-04-16 13:19 | ESPR_ITS ---
<Statement entered by Familia Sanchez MD - 04/16/24 14:53> Patient was seen and examined at bedside. She reported no pain today however she seems to be lethargic. Her labs show significant improvement of her WBC down trended to 9.7, hemoglobin stable at 11.9, and BUN downtrending from 38-30, serum creatinine normalized to 0.9. Her magnesium was 1.4 for that reason we will give her 4 mg of magnesium IV. Patient had a bowel movement today she is tolerating diet well with no nausea or vomiting. We ordered for the patient physical therapy today in anticipation for discharge tomorrow. We decreased her gabapentin as the patient today seems to be lethargic to 100 mg p.o. 3 times daily and DC'd [place]. - Patient's plan and care discussed with my attending, Dr. Lara Sanchez MD Internal Medicine PGY-2 Documentation for date of: 04/16/24 Subjective Subjective Interval history: Patient examined at bedside today. No acute overnight events. Says that she is experiencing some back pain, but has some resolution in her abdominal pain. Says that she is actively having a bowel movement since we speak. No other complaints at this time Exam Vital Signs Temp Pulse Resp BP Pulse Ox O2 Del Method O2 Flow Rate 97.7 F 67 21 H 135/64 H 99 Nasal Cannula 2 04/16/24 12:00 04/16/24 12:00 04/16/24 12:00 04/16/24 12:00 04/16/24 12:00 04/16/24 12:00 04/16/24 12:00 Narrative Exam General: AAOx3, resting in bed HEENT: NCAT, PERRLA, EOMI, MMM, anicteric conjunctivae. Lungs: Clear MYRNA to auscultation and percussion, No accessory muscle use. Cardio: Normal S1/S2, regular rhythm, no murmurs, no JVD Abdomen: Soft, mild tenderness to palpation around wound VAC, no palpable masses, peristalsis present, no guarding or rebound. Wound VAC in place, but draining well, erythematous abdomen but improving Extremities: Symmetrical, no significant deformities, trace edema , non-tender, peripheral pulses presents. Neuro: AAOx3, patient was able to move all extremities. She is a lot more awake and responsive today. Was able to follow commands and answer all questions appropriately. Psych: Cooperative Objective Labs 04/19/24 04:40 04/19/24 04:40 Labs: Laboratory Results - last 24 hr 04/16/24 04:18 WBC 9.7 RBC 4.19 Hgb 11.9 L Hct 36.7 MCV 88 MCH 28.4 MCHC 32.4 RDW Std Deviation 54.6 H Plt Count 225 Neut % (Auto) 54 Lymph % (Auto) 24 [place] % (Auto) 9 Eos % (Auto) 1 Baso % (Auto) 0 Neut # (Auto) 5.2 Lymph # (Auto) 2.3 [place] # (Auto) 0.9 H Eos # (Auto) 0.1 Baso # (Auto) 0.0 Immature Gran # (Auto) 1.06 H Absolute Nucleated RBC 0.00 Immature Gran % 11 H Nucleated RBC % 0 Sodium 140 Potassium 4.1 Chloride 109 H Carbon Dioxide 25.0 Anion Gap 6 L BUN 30 H Creatinine 0.9 Estim Creat Clear Calc 51.6 L eGFR > 60 BUN/Creatinine Ratio 33 H Glucose 75 Calculated Osmolality 284 Calcium 8.5 Corrected Calcium 9.8 Phosphorus 2.4 Magnesium 1.4 L Total Bilirubin 0.2 L AST < 10 ALT 11 Alkaline Phosphatase 523 H D Total Protein 4.9 L Albumin 2.4 L Globulin 2.5 Albumin/Globulin Ratio 1.0 L ABG Interpretation ABG results: 03/21/24 05:40 ABG pH 7.35 ABG pCO2 41 ABG pO2 121 H ABG HCO3 23 ABG O2 Saturation 99 H ABG Base Excess -3 Quality Measures Quality Measures VTE prophylaxis and sepsis Current suspected stage: ruled out Possible source: skin/soft tissue Blood cultures ordered: completed in ED Antibiotic ordered: No Advance care planning discussed with:: patient Assessment & Plan Assessment Current Active Medications: Generic Name Dose Route Start Last Admin Trade Name Freq PRN Reason Stop Dose Admin Acetaminophen 650 mg 04/12/24 08:33 04/14/24 05:00 Acetaminophen 325 Mg Tablet PO 05/12/24 08:32 650 mg Q4HR PRN Administration Fever >101 and abdominal pain Dextrose 25 ml 04/14/24 11:20 Dextrose 50%-Water Inj 50 Ml Syringe IV 05/14/24 11:19 Q15MIN PRN BG 50-70 responsive npo pt Dextrose 50 ml 04/14/24 11:20 Dextrose 50%-Water Inj 50 Ml Syringe IV 05/14/24 11:19 Q15MIN PRN BG <50 OR BG <70 & pt unresponsive Diphenhydramine HCl 25 mg 04/09/24 00:50 04/13/24 05:26 Diphenhydramine Inj 50 Mg/Ml Vial IV 05/09/24 00:49 25 mg Q6HR PRN Administration ITCHING Docusate Sodium 100 mg 04/15/24 09:20 Docusate Sod 100 Mg Capsule PO 05/13/24 13:44 QDAY PRN CONSTIPATION Protocol Donepezil HCl 10 mg 03/21/24 21:00 04/15/24 21:12 Donepezil Hcl 5 Mg Tablet PO 04/20/24 20:59 10 mg HS ASHISH Administration Gabapentin 100 mg 04/16/24 14:00 Gabapentin 100 Mg Capsule PO 05/16/24 13:59 TID ASHISH Glucagon 1 mg 04/14/24 11:20 Glucagon Inj 1 Mg Vial IM Q15MIN PRN BG <70, and no IV access Heparin Sodium (Porcine) 5,000 unit 04/12/24 21:00 04/16/24 08:50 Heparin Sod Inj 5000 Unit/Ml Vial SC 04/26/24 20:59 5,000 unit BID ASHISH Administration Hydralazine HCl 10 mg 03/21/24 15:45 Hydralazine Hcl 10 Mg Tablet PO 04/20/24 17:59 Q6HR PRN SBP>160 Albumin Human 25 gm in 100 mls @ 100 mls/min 03/21/24 10:54 Albuminar-25 Ivpb IV PRN PRN DIALYSIS Levothyroxine Sodium 125 mcg/ 175 mcg 04/13/24 06:00 04/16/24 05:10 Levothyroxine Sodium 50 mcg PO 05/13/24 05:59 175 mcg ACBR ASHISH Administration Lidocaine HCl 30 ml 04/15/24 12:38 Lidocaine Hcl 1% 20 Ml Vial INFL X1 PRN PIV insertion Ondansetron HCl 4 mg 03/21/24 06:08 04/15/24 07:12 Ondansetron Inj 2 Mg/Ml Inj 2 Ml IV 04/20/24 06:07 4 mg Q6H PRN Administration NAUSEA OR VOMITING Protocol Pantoprazole Sodium 40 mg 04/15/24 09:00 04/16/24 08:00 Pantoprazole 40 Mg Tablet PO 05/15/24 08:59 40 mg QDAY ASHISH Administration Polyethylene Glycol 17 gm 04/15/24 09:20 Polyethylene Glycol 17 Gm Packet PO 05/14/24 08:59 QDAY PRN CONSTIPATION Protocol Sodium Chloride 3 ml 03/21/24 08:25 Sodium Chloride Rt Tia 0.9% 3 Ml Nebu INH 04/20/24 08:24 PRN PRN SOLN Valproic Acid 750 mg 04/03/24 09:00 04/16/24 08:00 Valproic Acid Syrup 250 Mg/5 Ml Udc PO 05/03/24 08:59 750 mg BID ASHISH Administration Plan 78-year-old female with a past medical history of hypothyroidism, hypertension, JACKIE, asthma, depression, dementia, recurrent UTI, and is status post hemicolectomy with ileostomy admitted for acute uremic encephalopathy, stage III acute kidney injury admitted sepsis secondary to UTI versus intra-abdominal abscess. Hyperkalemic protocol initiated with 5 units of insulin, D50 and sevelamer as well as albuterol on admission. Patient received emergent dialysis for worsening renal function and electrolyte abnormalities. #S/P Reverse ileostomy, post operative day 8 #Hx of Right colectomy with diverting ileostomy #Intra-abdominal fluid collection, possible abscess or infection #Reactive Leukocytosis, improving Concern for patient as she is not getting up and moving Encouraging patient to ambulate Concern for pt getting too lethargic, will deescalate pain medicines ?Surgery on consult, appreciate recs ?Wound VAC ?Cardiac diet ?*PT eval ?Multimodal pain control ?Physical therapy ?Continue wound care ?RD on consult, appreciate recs ?Encourage ambulation ?Discontinue [place] ?Gabapentin 100 3 times daily #Constipation-resolved Postsurgical constipation Resolved with Colace and MiraLAX -Will hold laxatives #Hypoglycemia Secondary to poor oral intake, and patient being on liquid diet ?D50 x1 ?Hypoglycemic protocol in place #MAKENZIE, stable Differential diagnosis: Prerenal versus possible ischemic ATN Patient might likely have prerenal MAKENZIE in the setting of poor oral intake. Patient has not been consuming 100% of meals. Creatinine 1 today ?Renally dose medicines ? Avoid nephrotoxic agents #Hypotension, resolved #Bradycardia, resolved #Hypothermia, resolved Patient was left ICU, was in there for 2 days for evaluation of hypothermia, bradycardia and hypotension which required pressor support (1) Bradycardia could have been attributed due to post op or medication side effect such as Ambien which she took before the symptoms started, however she has been taking Ambien for years Could be component of septic shock #Chronic insomnia Symptomatic currently, has not restarted home Ambien ?Holding Ambien in setting of bradycardia ?Gabapentin 200 mg 3 times daily #Electrolyte imbalances #Hyperphosphatemia-resolved #Hyperkalemia, resolved #Hypomagnesemia Urgent dialysis indicated on admission, patient had temporary catheter placement. Holding dialysis for now because renal function is improving Plan: ? [facility]uer And Slicer Hand Dr. Rahman signing off given improved renal function ? Continue to monitor CMP #Normocytic anemia Hemoglobin has dropped from 11 to 8 status post ex lap, report says blood loss about 100 mL Anemia has improved back to baseline at 11 -CBC trend #Euosmolar hyponatremia, resolved Possible component of dehydration leading to hyponatremia due to poor oral intake. Hyponatremia is likely also contributed to GI losses through colostomy bag. On physical examination, patient had very dry mucous membranes and often does not consume full meals. Sodium 139 today #E.Coli UTI, improving #History of recurrent UTI Patient initially reported dysuria and cloudy urine with hx of recurrent UTIs. CT A/P 03/31: Fluid collection 5.4 x 4.0 x 2.2 cm in subcutaneous fatty tissue anterior pelvic wall, differentials include abcess and hematoma Repeat Blood culture, negative x2 final. Urine cultures positive for E. coli, pansensitive. -Completed 1 week course of doxycycline and IV Zosyn from 03/21-04/02) #New onset seizures #Complex partial seizures Suspicion of seizures marked by shakiness and blank staring. Teleneuro was consulted. CT head and CTA negative for any acute findings. Patient has been seizure free since New onset intermittent bilateral tremors noted. Patient denied any dizziness, headache, nausea, vomiting. New onset of seizures could be because patient stopped taking Depakote, is on 250 at home, takes Depakote for bipolar disorder -Neurologist Dr Brush consulted; suspected complex partial seizures and recommended doubling valproate dose in place of Keppra due to better side effect profile. -Valproate 750mg twice daily -Seizure precautions #History of hypothyroidism Patient has a history of hypothyroidism. She takes levothyroxine at home. ?Levothyroxine 175 mcg before breakfast #History of hypertension Chronic, uncontrolled Patient has a longstanding hypertension on both metoprolol and hydralazine. Plan ?Metoprolol tartrate 25mg BID ?Hydralazine 10mg Q6HR PRN for SBP >160 #History of depression #History of dementia #History of bipolar disorder #History of anxiety Patient takes valproate for bipolar, home dose 250 mg Patient experiencing anxiety currently, do not want to overly sedate patient Plan: ?Gabapentin 200 mg 3 times daily -Donepezil 10mg daily -Valproate 750mg BID #History of asthma Plan: ? DuoNebs every 4 hours breathing treatment as needed #Hypochloremia-resolved #Hypocalcemia-resolved #Hyperphosphatemia-resolved #Sepsis, resolved #Acute encephalopathy uremic vs infectious-resolved #Health Maintenance Disposition: Telemetry DVT prophylaxis: Heparin GI prophylaxis: Protonix Diet: Cardiac CODE STATUS: Full The patient's plan was discussed with attending Dr. Bermudez and senior resident Dr. 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 Was initiated. During course of hospitalization, patient did receive multiple hemodialysis session and plan for reversing the ileostomy. As of now, continue to monitor closely. As for mentation, patient is alert and oriented to name, date of and place and kidney function improving without need for further hemodialysis. In addition, patient underwent reversal of ileostomy and currently has a wound VAC in place. I reviewed above note and agree with findings and plans. I have also personally examined the patient with medicine team and went over assessment and plan with medical team including quality intern and resident physician.
[2024-04-16] MEDS: GABAPENTIN 100 MG CAPSULE PO ×2 (14:11→21:31)
[2024-04-16 16:00] VITALS: BP 131/58; PULSE 74; PULSE 75; RESP 20; TEMP 35.9; O2SAT 100
[2024-04-16] MEDS: ACETAMINOPHEN 325 MG TABLET 650 MG PO (19:50)
[2024-04-16 20:00] VITALS: BP 150/63; PULSE 72; PULSE 73; RESP 15; TEMP 36.1; O2SAT 96
[2024-04-16] MEDS: DONEPEZIL HCL 5 MG TABLET 10 MG PO (21:28)
[2024-04-17] VITALS: BP 122/61; PULSE 71; PULSE 79; RESP 15; TEMP 36.4; O2SAT 97
[2024-04-17 04:00] VITALS: BP 131/68; PULSE 68; PULSE 71; RESP 12; TEMP 36; O2SAT 96
[2024-04-17 04:57] LABS: Basophils % (Auto) 0 % (0-2.5); Eosinophils # (Auto) 0.2 Thou/mm3 (0.0-0.5); Eosinophils % (Auto) 2 % (0-10); Hematocrit 37.5 % (36.0-46.0); Immature Granulocytes % (Auto) 15 % (0-0); Immature Granulocytes Auto 1.44 Thou/mm3 (0.00-0.00); Lymphocytes # (Auto) 2.2 Thou/mm3 (1.0-4.8); Lymphocytes % (Auto) 24 % (10-50); Mean Corpuscular Volume 87 fL (80-100); Monocytes % (Auto) 10 % (0-12); Neutrophils # (Auto) 4.6 Thou/mm3 (1.8-7.7); Neutrophils % (Auto) 49 % (37-80); Nucleated Red Blood Cell % 0 /100 WBC (0); Platelet Count 224 Thou/mm3 (140-440); RDW Standard Deviation 54.4 fL (36.4-46.3); Red Blood Count 4.29 Miln/mm3 (4.00-5.20); White Blood Count 9.4 Thou/mm3 (3.6-11.0)
[2024-04-17] MEDS: LEVOTHYROXINE SODIUM 125 MCG, LEVOTHYROXINE SODIUM 50 MCG 175 MCG PO (05:22)
[2024-04-17 05:25] LABS: Alanine Aminotransferase 11 U/L (10-49); Albumin, Serum 2.5 gm/dL (3.4-4.8); Albumin/Globulin Ratio 0.9 (1.2-2.2); Alkaline Phosphatase 523 U/L (46-116); Anion Gap 6 (7-16); Aspartate Amino Transferase 11 U/L (0-34); BUN/Creatinine Ratio 29 Ratio (12-20); Bilirubin,Total 0.2 mg/dL (0.3-1.2); Blood Urea Nitrogen 23 mg/dL (9-23); Calcium 8.6 mg/dL (8.3-10.6); Calcium (Corrected) 9.8 mg/dL (8.5-10.1); Carbon Dioxide 25.8 mMol/L (20.0-31.0); Chloride 107 mMol/L (98-107); Creatinine (Component) 0.8 mg/dL (0.6-1.3); Estimated Creatinine Clearance 58.1 mL/min (>60); Globulin 2.7 gm/dL (2.3-3.5); Glucose 87 mg/dL (74-106); Osmolality,Calculated 280 (275-295); Potassium 4.1 mMol/L (3.4-5.1); Sodium 139 mMol/L (136-145); Total Protein 5.2 gm/dL (5.7-8.2); eGFR > 60 See Note
[2024-04-17] MEDS: GABAPENTIN 100 MG CAPSULE PO ×3 (05:31→21:05)
[2024-04-17 08:00] VITALS: BP 120/67; PULSE 70; PULSE 79; RESP 14; TEMP 36.2; O2SAT 96
[2024-04-17] MEDS: HEPARIN SOD INJ 5000 UNIT/ML VIAL SC ×2 (08:40→21:05)
[2024-04-17] MEDS: VALPROIC ACID SYRUP 250 MG/5 ML UDC 750 MG PO ×2 (08:41→21:06)
[2024-04-17] MEDS: PANTOPRAZOLE 40 MG TABLET PO (08:41)
--- NOTE | 2024-04-17 08:50 | PD.RESPRO ---
Documentation for date of: 04/17/24 Subjective Subjective Interval history: Patient was seen and examined at bedside this morning. Overnight patient's had a few PVCs again. Patient's HR has been in the 60-80s Patient has good chronotropic response Patient does not have any cardiac complaints at this time Potassium 4.1 and magnesium 1.9, recommend to aggressively replete potassium magnesium to keep above 4 and 2 respectively Recommend to avoid any beta-blockers, calcium channel blockers, or any other rate controlling drugs given patient's sinus bradycardia. Patient will most likely be discharged today. Patient's echo had the following findings: Normal LV size and function. Grade I diastolic dysfunction. Estimated EF 65-70% Normal RV size and function. Trace MR, PI, Mild TR. Mild AV sclerosis without stenosis Exam Vital Signs Temp Pulse Resp BP Pulse Ox O2 Del Method O2 Flow Rate 97.1 F 70 14 120/67 96 Room Air 1 04/17/24 08:00 04/17/24 08:00 04/17/24 08:00 04/17/24 08:00 04/17/24 08:00 04/17/24 08:00 04/17/24 04:00 Narrative Exam General: A/O x3, no acute distress Eyes: Patient's pupils are responsive to light. EOMI, patient grossly intact Ears: no visible ear discharge, Hearing grossly intact. Nose: No visible nasal discharge. Mouth/Throat: Dry mucous membranes, no redness, no lesions. Neck: Neck supple, non-tender, no cervical lymphadenopathy. Lungs: Clear MYRNA to auscultation and percussion, No accessory muscle use. Cardio: Normal S1/S2, regular rhythm, no murmurs, no JVD Abdomen: Soft, mild tenderness to palpation around wound VAC, no palpable masses, peristalsis present, no guarding or rebound. Wound VAC in place. Extremities: Symmetrical, no significant deformities, no peripheral edema , non-tender, peripheral pulses presents. Skin: No rashes, no lesions, warm to touch. Neuro: Patient was able to move all extremities. She was able to answer all questions. Objective Labs 04/18/24 05:06 04/18/24 05:06 Labs: Laboratory Results - last 24 hr 04/17/24 04:25 WBC 9.4 RBC 4.29 Hgb 12.0 Hct 37.5 MCV 87 MCH 28.0 MCHC 32.0 RDW Std Deviation 54.4 H Plt Count 224 Neut % (Auto) 49 Lymph % (Auto) 24 [place] % (Auto) 10 Eos % (Auto) 2 Baso % (Auto) 0 Neut # (Auto) 4.6 Lymph # (Auto) 2.2 [place] # (Auto) 1.0 H Eos # (Auto) 0.2 Baso # (Auto) 0.0 Immature Gran # (Auto) 1.44 H Absolute Nucleated RBC 0.00 Immature Gran % 15 H Nucleated RBC % 0 Sodium 139 Potassium 4.1 Chloride 107 Carbon Dioxide 25.8 Anion Gap 6 L BUN 23 Creatinine 0.8 Estim Creat Clear Calc 58.1 L eGFR > 60 BUN/Creatinine Ratio 29 H Glucose 87 Calculated Osmolality 280 Calcium 8.6 Corrected Calcium 9.8 Total Bilirubin 0.2 L AST 11 ALT 11 Alkaline Phosphatase 523 H Total Protein 5.2 L Albumin 2.5 L Globulin 2.7 Albumin/Globulin Ratio 0.9 L ABG Interpretation ABG results: 03/21/24 05:40 ABG pH 7.35 ABG pCO2 41 ABG pO2 121 H ABG HCO3 23 ABG O2 Saturation 99 H ABG Base Excess -3 Quality Measures Quality Measures VTE prophylaxis and sepsis Current suspected stage: ruled out Possible source: skin/soft tissue Blood cultures ordered: completed in ED Antibiotic ordered: No Advance care planning discussed with:: patient Assessment & Plan Assessment Current Active Medications: Generic Name Dose Route Start Last Admin Trade Name Freq PRN Reason Stop Dose Admin Acetaminophen 650 mg 04/12/24 08:33 04/16/24 19:50 Acetaminophen 325 Mg Tablet PO 05/12/24 08:32 650 mg Q4HR PRN Administration Fever >101 and abdominal pain Dextrose 25 ml 04/14/24 11:20 Dextrose 50%-Water Inj 50 Ml Syringe IV 05/14/24 11:19 Q15MIN PRN BG 50-70 responsive npo pt Dextrose 50 ml 04/14/24 11:20 Dextrose 50%-Water Inj 50 Ml Syringe IV 05/14/24 11:19 Q15MIN PRN BG <50 OR BG <70 & pt unresponsive Diphenhydramine HCl 25 mg 04/09/24 00:50 04/13/24 05:26 Diphenhydramine Inj 50 Mg/Ml Vial IV 05/09/24 00:49 25 mg Q6HR PRN Administration ITCHING Docusate Sodium 100 mg 04/15/24 09:20 Docusate Sod 100 Mg Capsule PO 05/13/24 13:44 QDAY PRN CONSTIPATION Protocol Donepezil HCl 10 mg 03/21/24 21:00 04/16/24 21:28 Donepezil Hcl 5 Mg Tablet PO 04/20/24 20:59 10 mg HS ASHISH Administration Gabapentin 100 mg 04/16/24 14:00 04/17/24 05:31 Gabapentin 100 Mg Capsule PO 05/16/24 13:59 100 mg TID ASHISH Administration Glucagon 1 mg 04/14/24 11:20 Glucagon Inj 1 Mg Vial IM Q15MIN PRN BG <70, and no IV access Heparin Sodium (Porcine) 5,000 unit 04/12/24 21:00 04/17/24 08:40 Heparin Sod Inj 5000 Unit/Ml Vial SC 04/26/24 20:59 5,000 unit BID ASHISH Administration Hydralazine HCl 10 mg 03/21/24 15:45 Hydralazine Hcl 10 Mg Tablet PO 04/20/24 17:59 Q6HR PRN SBP>160 Albumin Human 25 gm in 100 mls @ 100 mls/min 03/21/24 10:54 Albuminar-25 Ivpb IV PRN PRN DIALYSIS Levothyroxine Sodium 125 mcg/ 175 mcg 04/13/24 06:00 04/17/24 05:22 Levothyroxine Sodium 50 mcg PO 05/13/24 05:59 175 mcg ACBR ASHISH Administration Lidocaine HCl 30 ml 04/15/24 12:38 Lidocaine Hcl 1% 20 Ml Vial INFL X1 PRN PIV insertion Ondansetron HCl 4 mg 03/21/24 06:08 04/15/24 07:12 Ondansetron Inj 2 Mg/Ml Inj 2 Ml IV 04/20/24 06:07 4 mg Q6H PRN Administration NAUSEA OR VOMITING Protocol Pantoprazole Sodium 40 mg 04/15/24 09:00 04/17/24 08:41 Pantoprazole 40 Mg Tablet PO 05/15/24 08:59 40 mg QDAY ASHISH Administration Polyethylene Glycol 17 gm 04/15/24 09:20 Polyethylene Glycol 17 Gm Packet PO 05/14/24 08:59 QDAY PRN CONSTIPATION Protocol Sodium Chloride 3 ml 03/21/24 08:25 Sodium Chloride Rt Tia 0.9% 3 Ml Nebu INH 04/20/24 08:24 PRN PRN SOLN Valproic Acid 750 mg 04/03/24 09:00 04/17/24 08:41 Valproic Acid Syrup 250 Mg/5 Ml Udc PO 05/03/24 08:59 750 mg BID ASHISH Administration Plan 78-year-old female with past medical history of hypothyroidism, hypertension, JACKIE, asthma, depression, bipolar disorder, dementia, recurrent UTIs, and 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 1. Symptomatic sinus bradycardia - resolved 2. Intermittent Atrial Arrhythmias, A-fib vs Atrial tachycardia - resolved 3. Hypotension ? Sinus Bradycardia mostly likely vasovagal secondary to postop pain and nausea vs underlying sick sinus syndrome ? Patient's has atrial arrhythmias there is with evidence of significant frequent PACs. There was evidence of atrial arrhythmias which could be A-fib versus atrial tachycardia intermittently which are mostly sec to sepsis and electrolyte abnormalities At this time patient is rate controlled. ? Patient is currently off pressors and has good chronotropic response ? EKG showed sinus bradycardia with first-degree AV block ? Prior EKG on 04/09/2024 showed sinus rhythm with a heart rate was 76 and no AV block. ? Patient is not on beta-blockers at this time given her bradycardia -Patient's echo had the following findings: Normal LV size and function. Grade I diastolic dysfunction. Estimated EF 65-70% Normal RV size and function. Trace MR, PI, Mild TR. Mild AV sclerosis without stenosis Plan: ? No rate control medications including CCB or Beta blockers due to hypotension and intermittent bradycardia. - All the intermittent atrial arrhythmias have resolved at the present point of time and no no further anticoagulation required as there were no arrhythmias and also patient has history of GI bleed. -Patient possibly has underlying sick sinus syndrome but her heart rate never went down below 55 bpm and now is between 60 to 80 bpm. ? Recommend aggressive repletion of the potassium and magnesium, maintain above 4 and 2 respectively, to avoid any arrhythmias. ?Will continue to monitor patient's heart rate as she has been stable in the 60s - 80s overnight. 4. MAKENZIE 5. Acute uremic encephalopathy, resolved ?Patient initially came in with altered mental status and BUN of 121 with creatinine of 9.5. ? Patient's baseline creatinine was around 1 and BUN 27 on 02/16/2024 ?Recommend to follow-up with nephrology recommendations ?Continue current management as per primary care team 6. Sepsis secondary to UTI versus intra-abdominal abscess 7. E. coli UTI 8. Intra-abdominal abscess 9. 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 Patient had an I&D on 04/01/2024 by general surgery ? Patient had a ex lap with reversal ileostomy on 04/09/2024 by general surgery ?Recommend to continue current management as per primary care team 10. Normocytic normochromic anemia ?Patient's hemoglobin has been in the 8-9's prior to admission ? On admission patient's hemoglobin was 12.6, today 12 ? Could be due to blood loss from surgery versus hemodilutional versus GI bleed ? Recommend close monitoring and to transfuse if hemoglobin less than 7 11. Complex partial seizures, new onset ?Patient had an episode of shakiness and blank stare on 03/26/2024 ? EEG was normal and MRI was unrevealing ?Patient currently on valproic acid ? Recommend to follow neurology recommendations 12. Pseudohyponatremia, resolved ?Patient's initial sodium was 123 with osmolality of 286 ?Continue current management as per primary care team 13. Hx of hypothyroidism 14. Hx of asthma 15. Hx of depression 16. Hx of bipolar disorder 17. Hx of dementia 18. Hx of JACKIE ?Continue current management as per primary care team Continue rest of management as per primary team. We are grateful to be able to participate in Mrs. Shell's care. Thank you for the consult Plan of care discussed with attending Housekeeping Lead, Dr. Manuel Arce MD PGY-1 Attending Provider Attestation/Addendum I have personally seen and examined the patient separately on the above date of service and discussed the plan of care with the resident. I reviewed the resident Dr. Dey consultation progress note and agree with the resident findings and plan in the note above and have also edited the documentation to reflect my findings and plan. Сергей Jackson M.D. Interventional Cardiology
[2024-04-17] MEDS: ACETAMINOPHEN 325 MG TABLET 650 MG PO ×2 (10:05→23:39)
--- NOTE | 2024-04-17 10:24 | PC.SS ---
Update: Plan is to d/c the patient.
[2024-04-17 11:05] VITALS: BMI 12.0
--- NOTE | 2024-04-17 11:32 | PD.SURPROG ---
Documentation for date of: 04/17/24 Subjective Subjective Brief History: 78F with HTN, CHF, hypothyroidism who underwent right hemicolectomy with diverting ileostomy for fecal contamination 12/19, admitted in past for MAKENZIE here now with AMS and acute renal failure, planned for emergent HD. Workup shows leukocytosis and possible abdominal fluid collection PMH: HTN, CHF, hypothyroidism, bipolar disorder PSHx: Tonsillectomy, appendectomy, cholecystectomy, hysterectomy, R hemicolectomy with diverting ileostomy 12/19 for benign necrotic mass Meds: no anticoagulation Allergies: haldol, naproxen, fluoxetine Social hx: Nonsmoker Narrative: Pain controlled, no nausea but having minimal appetite, remaining afebrile with labs normal Exam Vital Signs Temp Pulse Resp BP Pulse Ox O2 Del Method O2 Flow Rate 97.1 F 70 14 120/67 96 Room Air 1 04/17/24 08:00 04/17/24 08:00 04/17/24 08:00 04/17/24 08:00 04/17/24 08:00 04/17/24 08:00 04/17/24 04:00 Constitutional Constitutional: no acute distress Routine Respiratory Exam Respiratory: Present no resp distress Routine Abdominal Exam Abdominal: Present soft and wound (midline wound with stable surrounding erythema, no fluctuance); Absent tenderness or distended Results Results: Laboratory Laboratory results: results reviewed Assessment & Plan Plan 78F with HTN, CHF, hypothyroidism who underwent right hemicolectomy with diverting ileostomy for fecal contamination 12/19, admitted with acute renal failure, improved from that standpoint, now s/p ileostomy reversal 04/09, gradually recovering OK for dc from my standpoint with wound vac in place Will follow up as outpt Procedures Procedures Exploratory laparotomy, reversal of ileostomy
[2024-04-17 12:00] VITALS: BP 126/59; PULSE 69; PULSE 77; RESP 14; TEMP 36.1; O2SAT 96
--- NOTE | 2024-04-17 12:28 | PC.SS ---
EMR TRAINER attempted phone contact with patient's daughter, Sahra Shell ; to confirm discharge plan home with home health vs. SNF. No response. EMR TRAINER left message requesting return call.
--- NOTE | 2024-04-17 13:09 | ESDS_ITS ---
<Statement entered by Saima Cruz DO - 04/18/24 12:41> I, Saima Cruz DO, attest that I was physically present for the masterson portions of the service and evaluated the patient with the resident and I reviewed and discussed the case with the resident and agree with the resident's findings and plans of care as documented above <Statement entered by Familia Sanchez MD - 04/17/24 16:41> Patient was seen and examined at bedside. Patient stable from a clinical standpoint for discharge to a long-term facility for PT and wound care. As per the social managers they reported that the patient would have to pay co- pay for her insurance which might be an obstacle. financial services consultant called the daughter and were waiting for her respond to determine the disposition. - Patient's plan and care discussed with my attending, Dr. Nancy Sanchez MD Internal Medicine PGY-2 Planned Discharge Date 04/17/24 DS: Providers Provider Date of admission: 03/21/24 05:24 Primary care physician: Jorge Herndon MD Admitting Provider: Brennon Frazier MD Attending Provider on Admission: Saima Cruz DO Consults: 03/21/24 05:20 Consult to General Surgery Stat Comment: Consulting Provider: Adeline Flynn 03/21/24 08:29 Consult to Nephrology Stat Comment: Consulting Provider: Zhen Rahman 03/21/24 15:17 Referral Wound Care Routine Comment: 03/21/24 22:42 Referral [place] Routine Comment: pt desires a visit from britni for prayer Referral Registered Dietitian Routine Comment: 03/22/24 08:00 Referral Discharge Planning Stat Comment: op dialysis at dialysis 03/28/24 09:49 Consult to Neurology / Tele-Neurology Routine Comment: EEG read Consulting Provider: [facility] 03/28/24 12:49 Referral Physical Therapy Routine Comment: Physician Instructions: 03/30/24 14:38 Consult to Neurology / Tele-Neurology Routine Comment: Consulting Provider: Marcellus Brush 04/11/24 09:16 Consult to Cardiology Stat Comment: Consulting Provider: Сергей Jackson 04/13/24 10:28 Referral Physical Therapy Routine Comment: Physician Instructions: 04/16/24 10:30 Referral Physical Therapy Routine Comment: Physician Instructions: Attending Provider on DC: Saima Cruz DO Discharging Provider: Saima Cruz DO DS: Diagnosis Problem List Completed Was Problem List Reviewed/Reconciled?: Yes Hospital Course Hospital Course Hospital course: Roula Shell is a 78 yearold female with a past medical history of hypothyroidism, hypertension, JACKIE, asthma, depression, dementia, recurrent UTI, and is status post hemicolectomy with ileostomy who was admitted on 03/21/2024 for acute renal failure requiring dialysis, new onset seizures, diagnosis which required I&D, and reverse ileostomy. Patient had come to the ED for altered mental status and weakness. She had come to the ED with temperature of 95.7, heart rate of 96, blood pressure 142/57 on room air. She was worked up and was found to have a white blood count of 20.9, sodium 123, potassium 55, chloride of 88, bun of 121, creatinine of 1.1, phosphorus of 2.7, urinalysis showed 1551 white blood cells, 40 RBCs, bacteria and yeast present. CT abdomen pelvis showed some suspicious abscess of the lower quadrant, CT head was unremarkable. Patient on fluids, Rocephin and magnesium and patient was admitted to the floors after medicine was consulted. E coli treatment was begun. General surgery, Dr. Flynn, was consulted to evaluate possible abscess in the abdomen. Patient required hemodialysis before ending surgical intervention. Patient began to recover and was planning to get reverse ileostomy once patient's condition improved. Patient had a number of of rapid responses called on the floors. The first rapid response being 1 evaluation of seizure like activity, and had amantadine held for her. Next rapid was called which was an evaluation for hypotension, given fluids and general surgery was made note of this rapid due to the culprit possibly being the abscess in her abdomen. The last rapid was called was for evaluation of seizure-like activity, in which patient had antiepileptics (Keppra and Depakote) given to her with doses changed. Of note, patient had not been restarted immediately on her psychiatric medicines in which she takes for bipolar, which could have lowered the threshold for seizures. Neurology has been consulted with the recommendations as well. Patient had I&D of abdominal abscess on 04/01/2024 which had about 20 cc of pus drained, and patient tolerated procedure well. On 04/09/2024, patient had reverse ileostomy former Dr. Flynn, in which procedure was successful and patient had wound VAC placed. On 04/11/2024, patient was upgraded to ICU for evaluation of hypothermia, hypotension and bradycardia. Patient was given fluids and atropine prior to being upgraded to ICU, with minimal improvement with MAP. Of note, patient had developed the symptoms shortly after patient was restarted on home Ambien, which she has been taking. While in the ICU patient was started on pressure support. Once patient had improved, she was downgraded back to the floors in which patient was treated for pain, kidney injury and surgery recovery. Patient began to have regular bowel movements, improvement in kidney function and improvement in abdominal pain. Patient was then discharged to SNF with wound VAC in place with recommendations to follow-up outpatient and for recovery Follow up with PCP within one week from discharge Follow up with the general surgeon within one week from discharge Follow up with neurologiest Dr Magaña within one week from discharge Follow up with wound care nurse instructions Use medications as prescribed In case of worsening of your symptoms please return to the ED as soon as possible #S/P Reverse ileostomy, #Hx of Right colectomy with diverting ileostomy #Abdominal abscess, s/p I&D #Reactive Leukocytosis, resolved #Constipation-resolved #Hypoglycemia, resolved #MAKENZIE, resolved #Acute renal failure, resolved #Hypotension, resolved #Bradycardia, resolved #Hypothermia, resolved #Chronic insomnia #Electrolyte imbalances #Hyperphosphatemia-resolved #Hyperkalemia, resolved #Hypomagnesemia #Normocytic anemia #Euosmolar hyponatremia, resolved #E.Coli UTI #History of recurrent UTI #New onset seizures #Complex partial seizures #History of hypothyroidism #History of hypertension #History of depression #History of dementia #History of bipolar disorder #History of anxiety #History of asthma #Hypochloremia-resolved #Hypocalcemia-resolved #Hyperphosphatemia-resolved #Sepsis, resolved #Acute encephalopathy uremic vs infectious-resolved Patient seen and care discussed with my senior resident, Dr. Sanchez , and my attending physician, Dr. Nancy Hinson, PGY-1 Time Spent with Patient Time attestation: Total time spent providing and/or coordinating discharge services: Time spent: Greater than 30 minutes Exam Vital Signs Temp Pulse Resp BP Pulse Ox O2 Del Method O2 Flow Rate 97.1 F 69 14 120/67 96 Room Air 1 04/17/24 08:00 04/17/24 12:00 04/17/24 08:00 04/17/24 08:00 04/17/24 08:00 04/17/24 08:00 04/17/24 04:00 Narrative Exam General: AAOx3, resting in bed HEENT: NCAT, PERRLA, EOMI, MMM, anicteric conjunctivae. Lungs: Clear MYRNA to auscultation and percussion, No accessory muscle use. Cardio: Normal S1/S2, regular rhythm, no murmurs, no JVD Abdomen: Soft, mild tenderness to palpation around wound VAC, no palpable masses, peristalsis present, no guarding or rebound. Wound VAC in place, but draining well, erythematous abdomen but improving Extremities: Symmetrical, no significant deformities, trace edema , non-tender, peripheral pulses presents. Neuro: AAOx3, patient was able to move all extremities. She is a lot more awake and responsive today. Was able to follow commands and answer all questions appropriately. Psych: Cooperative Discharge Plan Plan Patient Disposition: Xfer Skilled Nsg Fac (SNF) Patient condition on transfer: Benefits outweigh risks Care Plan Goals: Follow up with PCP within one week from discharge Follow up with the general surgeon within one week from discharge Follow up with neurologiest Dr Magaña within one week from discharge Follow up with wound care nurse instructions Use medications as prescribed In case of worsening of your symptoms please return to the ED as soon as possible Prescriptions/Referrals Prescriptions/Med Rec: New pantoprazole 40 mg Tablet,Delayed Release (Dr/Ec) 40 mg PO QDAY 30 Days Qty: 30 0RF valproic acid (as sodium salt) 250 mg/5 mL (5 mL) Solution 750 mg PO BID 30 Days Qty: 900 2RF Continued nortriptyline 10 mg Capsule 10 mg PO DAILY donepezil 10 mg Tablet 10 mg PO DAILY divalproex [Depakote] 250 mg Tablet,Delayed Release (Dr/Ec) 250 mg PO DAILY montelukast 10 mg Tablet 10 mg PO DAILY ondansetron HCl 8 mg Tablet 8 mg PO Q6HR PRN (Reason: Nausea And Vomiting) levothyroxine 137 mcg tablet 137 mcg PO QDAY Patient Comments: take 1 tablet by mouth every morning ON AN EMPTY STOMACH metoprolol tartrate 25 mg tablet 25 mg PO BID Patient Comments: take 1 tablet by mouth twice a day atorvastatin 10 mg Tablet 10 mg PO QPM famotidine [Pepcid] 20 mg Tablet 20 mg PO Q12H hydroxyzine HCl 25 mg Tablet 25 mg PO Q12HR PRN (Reason: Anxiety) ergocalciferol (vitamin D2) [Vitamin D2] 1,250 mcg (50,000 unit) Capsule 1,250 mcg PO QOWEEK Changed oxycodone-acetaminophen [Percocet] 10-325 mg Tablet 10 - 325 tab PO Q6H 6 Days Qty: 24 0RF Discontinued memantine 10 mg Tablet 10 mg PO BID zolpidem [Ambien] 5 mg Tablet 5 mg PO HS valproic acid (as sodium salt) 250 mg/5 mL Solution 500 mg PO HS morphine 15 mg Tablet 15 mg PO Q12H PRN (Reason: Pain) Referrals: Adeline Flynn MD [Physician] - (You will receive a phone call to confirm a follow-up appt with me on Wednesday, May 08 at 930am) Yanick (PCP)Jorge MD [Primary Care Provider] - Patient/Caregiver Discharge Instructions Discharge Activity: as per physical therapy Education Materials: Abdomen Surg Dc, Dehydration, Sepsis, ED Seizure New Onset Unknown ... Print Language: Ghanaian Stand Alone Forms: [facility]ison Award Info., Patient Portal Info Letter Discharge Order Discharge Orders: Discharge (Routine); Ordered 04/17/24 Ordered By: Familia Sanchez Quality Discharge Quality Measures VTE prophylaxis (Heparin)
[2024-04-17 13:14] LABS: Magnesium 1.9 mg/dL (1.6-2.6); Phosphorous 1.7 mg/dL (2.4-5.1)
--- NOTE | 2024-04-17 14:40 | PC.SS ---
COFFEE PLANTATION WORKER attempted phone contact with patient's daughter, Sahra Shell ; to confirm discharge plan home with home health vs. SNF. No response. COFFEE PLANTATION WORKER left message requesting return call.
--- NOTE | 2024-04-17 15:19 | PC.SS ---
HEAT TREAT TECHNICIAN updated wound care nurse that patient's daughter has not responded to phone calls to confirm discharge plan: home w/HH vs. SNF. If home with home health is the plan, patient will require wound vac upon discharge.
[2024-04-17 16:00] VITALS: BP 129/62; PULSE 73; RESP 16; TEMP 36.8; O2SAT 96
--- NOTE | 2024-04-17 16:09 | PC.SS ---
SS called and spoke to dtr, Sahra Shell, phone# [phone] to discuss patient's d/c plan to home with wound vac or SNF. Dtr is aware pt has co pay. Dtr states she is attempting to contact patient's health insurance regarding co pay. Dtr states she is unable to pay co pay for SNF. Dtr is requesting pt go to [facility]. Fahad STOVER is aware. Dtr requests for pt not to go to [facility]. Dtr is aware pt has used 21 days already at SNF. SS attempted to contact Deepika from [facility] but was only able to leave voicemail.
--- NOTE | 2024-04-17 16:13 | PC.SS ---
CLINICAL TEAM LEAD received voicemail from patient's daughter requesting return call. CLINICAL TEAM LEAD attempted phone contact with patient's daughter, Sahra Shell ; to confirm discharge plan home with home health vs. SNF. No response. CLINICAL TEAM LEAD left message requesting return call.
[2024-04-17 20:00] VITALS: BP 153/69; PULSE 83; PULSE 90; RESP 16; TEMP 36.3; O2SAT 98
[2024-04-17] MEDS: DONEPEZIL HCL 5 MG TABLET 10 MG PO (21:05)
[2024-04-18] VITALS (7 sets, daily range): BP systolic 125–144; BP diastolic 58–73; PULSE 68–113; RESP 17–22; TEMP 36.2–36.4; O2SAT 92–99; BMI 30.4; BMI 12.0
[2024-04-18] MEDS: LEVOTHYROXINE SODIUM 125 MCG, LEVOTHYROXINE SODIUM 50 MCG 175 MCG PO (05:16)
[2024-04-18] MEDS: GABAPENTIN 100 MG CAPSULE PO ×3 (05:16→21:16)
[2024-04-18 06:17] LABS: Basophils % (Auto) 0 % (0-2.5); Eosinophils # (Auto) 0.3 Thou/mm3 (0.0-0.5); Eosinophils % (Auto) 2 % (0-10); Hematocrit 37.8 % (36.0-46.0); Hemoglobin 12.1 g/dL (12.0-16.0); Immature Granulocytes % (Auto) 20 % (0-0); Immature Granulocytes Auto 2.83 Thou/mm3 (0.00-0.00); Lymphocytes # (Auto) 3.4 Thou/mm3 (1.0-4.8); Lymphocytes % (Auto) 24 % (10-50); Mean Corpuscular Volume 88 fL (80-100); Monocytes # (Auto) 1.4 Thou/mm3 (0.0-0.8); Monocytes % (Auto) 10 % (0-12); Neutrophils % (Auto) 43 % (37-80); Nucleated Red Blood Cell % 0 /100 WBC (0); Platelet Count 218 Thou/mm3 (140-440); RDW Standard Deviation 53.9 fL (36.4-46.3); Red Blood Count 4.32 Miln/mm3 (4.00-5.20)
[2024-04-18 07:30] LABS: Alanine Aminotransferase 8 U/L (10-49); Albumin, Serum 2.4 gm/dL (3.4-4.8); Alkaline Phosphatase 480 U/L (46-116); Anion Gap 6 (7-16); Aspartate Amino Transferase 12 U/L (0-34); BUN/Creatinine Ratio 24 Ratio (12-20); Bilirubin,Total 0.2 mg/dL (0.3-1.2); Blood Urea Nitrogen 19 mg/dL (9-23); Calcium 8.1 mg/dL (8.3-10.6); Calcium (Corrected) 9.4 mg/dL (8.5-10.1); Carbon Dioxide 26.4 mMol/L (20.0-31.0); Chloride 104 mMol/L (98-107); Creatinine (Component) 0.8 mg/dL (0.6-1.3); Estimated Creatinine Clearance 59.4 mL/min (>60); Globulin 2.5 gm/dL (2.3-3.5); Glucose 69 mg/dL (74-106); Magnesium 1.7 mg/dL (1.6-2.6); Osmolality,Calculated 272 (275-295); Phosphorous 1.9 mg/dL (2.4-5.1); Potassium 4.5 mMol/L (3.4-5.1); Sodium 136 mMol/L (136-145); Total Protein 4.9 gm/dL (5.7-8.2); eGFR > 60 See Note
--- NOTE | 2024-04-18 08:02 | PC.NURSE ---
Verified order for D50 push with Dr. Hinson. orders due to pt. low glucose this morning and pt. is not eating much. Phos-NAK also ordered.
[2024-04-18] MEDS: NAPH,KPH MBDB 1 PACKET (1.5 GM) 2 PACKET PO (08:04)
[2024-04-18] MEDS: DEXTROSE 50%-WATER INJ 50 ML SYRINGE IV (08:04)
[2024-04-18] MEDS: HEPARIN SOD INJ 5000 UNIT/ML VIAL SC ×2 (08:05→21:15)
[2024-04-18] MEDS: PANTOPRAZOLE 40 MG TABLET PO (08:05)
[2024-04-18] MEDS: VALPROIC ACID SYRUP 250 MG/5 ML UDC 750 MG PO ×2 (08:05→21:15)
--- NOTE | 2024-04-18 08:46 | PD.RESPRO ---
Documentation for date of: 04/18/24 Subjective Subjective Interval history: Patient was seen and examined at bedside this morning. Overnight patient's had a few PVCs again. Patient's HR has been in the 70-80s Patient has good chronotropic response Patient does not have any cardiac complaints at this time Potassium 4.5 and magnesium 1.7, recommend to aggressively replete potassium magnesium to keep above 4 and 2 respectively, phos was also 1.9, recommend to replete. ordered 4 gm magnesium sulfate IV Recommend to avoid any beta-blockers, calcium channel blockers, or any other rate controlling drugs given patient's sinus bradycardia. Patient's echo had the following findings: Normal LV size and function. Grade I diastolic dysfunction. Estimated EF 65-70% Normal RV size and function. Trace MR, PI, Mild TR. Mild AV sclerosis without stenosis Exam Vital Signs Temp Pulse Resp BP Pulse Ox O2 Del Method O2 Flow Rate 97.4 F 73 17 144/64 H 98 Nasal Cannula 1 04/18/24 08:00 04/18/24 08:00 04/18/24 08:00 04/18/24 08:00 04/18/24 08:00 04/18/24 08:00 04/18/24 08:00 Narrative Exam General: A/O x3, no acute distress Eyes: Patient's pupils are responsive to light. EOMI, patient grossly intact Ears: no visible ear discharge, Hearing grossly intact. Nose: No visible nasal discharge. Mouth/Throat: Dry mucous membranes, no redness, no lesions. Neck: Neck supple, non-tender, no cervical lymphadenopathy. Lungs: Clear MYRNA to auscultation and percussion, No accessory muscle use. Cardio: Normal S1/S2, regular rhythm, no murmurs, no JVD Abdomen: Soft, mild tenderness to palpation around wound VAC, no palpable masses, peristalsis present, no guarding or rebound. Wound VAC in place. Extremities: Symmetrical, no significant deformities, no peripheral edema , non-tender, peripheral pulses presents. Skin: No rashes, no lesions, warm to touch. Neuro: Patient was able to move all extremities. She was able to answer all questions. Objective Labs 04/18/24 05:06 04/18/24 05:06 Labs: Laboratory Results - last 24 hr 04/17/24 04/18/24 12:14 05:06 WBC 14.0 H D RBC 4.32 Hgb 12.1 Hct 37.8 MCV 88 MCH 28.0 MCHC 32.0 RDW Std Deviation 53.9 H Plt Count 218 Neut % (Auto) 43 Lymph % (Auto) 24 [place] % (Auto) 10 Eos % (Auto) 2 Baso % (Auto) 0 Neut # (Auto) 6.0 Lymph # (Auto) 3.4 [place] # (Auto) 1.4 H Eos # (Auto) 0.3 Baso # (Auto) 0.0 Immature Gran # (Auto) 2.83 H Absolute Nucleated RBC 0.00 Immature Gran % 20 H Nucleated RBC % 0 Sodium 136 Potassium 4.5 Chloride 104 Carbon Dioxide 26.4 Anion Gap 6 L BUN 19 Creatinine 0.8 Estim Creat Clear Calc 59.4 L eGFR > 60 BUN/Creatinine Ratio 24 H Glucose 69 L Calculated Osmolality 272 L Calcium 8.1 L Corrected Calcium 9.4 Phosphorus 1.7 L 1.9 L Magnesium 1.9 1.7 Total Bilirubin 0.2 L AST 12 ALT 8 L Alkaline Phosphatase 480 H D Total Protein 4.9 L Albumin 2.4 L Globulin 2.5 Albumin/Globulin Ratio 1.0 L ABG Interpretation ABG results: 03/21/24 05:40 ABG pH 7.35 ABG pCO2 41 ABG pO2 121 H ABG HCO3 23 ABG O2 Saturation 99 H ABG Base Excess -3 Quality Measures Quality Measures VTE prophylaxis and sepsis Current suspected stage: ruled out Possible source: skin/soft tissue Blood cultures ordered: completed in ED Antibiotic ordered: No Advance care planning discussed with:: patient Assessment & Plan Assessment Current Active Medications: Generic Name Dose Route Start Last Admin Trade Name Freq PRN Reason Stop Dose Admin Acetaminophen 650 mg 04/12/24 08:33 04/17/24 23:39 Acetaminophen 325 Mg Tablet PO 05/12/24 08:32 650 mg Q4HR PRN Administration Fever >101 and abdominal pain Dextrose 25 ml 04/14/24 11:20 Dextrose 50%-Water Inj 50 Ml Syringe IV 05/14/24 11:19 Q15MIN PRN BG 50-70 responsive npo pt Dextrose 50 ml 04/14/24 11:20 Dextrose 50%-Water Inj 50 Ml Syringe IV 05/14/24 11:19 Q15MIN PRN BG <50 OR BG <70 & pt unresponsive Diphenhydramine HCl 25 mg 04/09/24 00:50 04/13/24 05:26 Diphenhydramine Inj 50 Mg/Ml Vial IV 05/09/24 00:49 25 mg Q6HR PRN Administration ITCHING Docusate Sodium 100 mg 04/15/24 09:20 Docusate Sod 100 Mg Capsule PO 05/13/24 13:44 QDAY PRN CONSTIPATION Protocol Donepezil HCl 10 mg 03/21/24 21:00 04/17/24 21:05 Donepezil Hcl 5 Mg Tablet PO 04/20/24 20:59 10 mg HS ASHISH Administration Gabapentin 100 mg 04/16/24 14:00 04/18/24 05:16 Gabapentin 100 Mg Capsule PO 05/16/24 13:59 100 mg TID ASHISH Administration Glucagon 1 mg 04/14/24 11:20 Glucagon Inj 1 Mg Vial IM Q15MIN PRN BG <70, and no IV access Heparin Sodium (Porcine) 5,000 unit 04/12/24 21:00 04/18/24 08:05 Heparin Sod Inj 5000 Unit/Ml Vial SC 04/26/24 20:59 5,000 unit BID ASHISH Administration Hydralazine HCl 10 mg 03/21/24 15:45 Hydralazine Hcl 10 Mg Tablet PO 04/20/24 17:59 Q6HR PRN SBP>160 Albumin Human 25 gm in 100 mls @ 100 mls/min 03/21/24 10:54 Albuminar-25 Ivpb IV PRN PRN DIALYSIS Levothyroxine Sodium 125 mcg/ 175 mcg 04/13/24 06:00 04/18/24 05:16 Levothyroxine Sodium 50 mcg PO 05/13/24 05:59 175 mcg ACBR ASHISH Administration Lidocaine HCl 30 ml 04/15/24 12:38 Lidocaine Hcl 1% 20 Ml Vial INFL X1 PRN PIV insertion Ondansetron HCl 4 mg 03/21/24 06:08 04/15/24 07:12 Ondansetron Inj 2 Mg/Ml Inj 2 Ml IV 04/20/24 06:07 4 mg Q6H PRN Administration NAUSEA OR VOMITING Protocol Pantoprazole Sodium 40 mg 04/15/24 09:00 04/18/24 08:05 Pantoprazole 40 Mg Tablet PO 05/15/24 08:59 40 mg QDAY ASHISH Administration Polyethylene Glycol 17 gm 04/15/24 09:20 Polyethylene Glycol 17 Gm Packet PO 05/14/24 08:59 QDAY PRN CONSTIPATION Protocol Sodium Chloride 3 ml 03/21/24 08:25 Sodium Chloride Rt Tia 0.9% 3 Ml Nebu INH 04/20/24 08:24 PRN PRN SOLN Valproic Acid 750 mg 04/03/24 09:00 04/18/24 08:05 Valproic Acid Syrup 250 Mg/5 Ml Udc PO 05/03/24 08:59 750 mg BID ASHISH Administration Plan 78-year-old female with past medical history of hypothyroidism, hypertension, JACKIE, asthma, depression, bipolar disorder, dementia, recurrent UTIs, and 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 1. Symptomatic sinus bradycardia - resolved 2. Intermittent Atrial Arrhythmias, A-fib vs Atrial tachycardia - resolved 3. Hypotension ? Sinus Bradycardia mostly likely vasovagal secondary to postop pain and nausea vs underlying sick sinus syndrome ? Patient's has atrial arrhythmias there is with evidence of significant frequent PACs. There was evidence of atrial arrhythmias which could be A-fib versus atrial tachycardia intermittently which are mostly sec to sepsis and electrolyte abnormalities. At this time patient is rate controlled. ? Patient has good chronotropic response ? EKG showed sinus bradycardia with first-degree AV block ? Prior EKG on 04/09/2024 showed sinus rhythm with a heart rate was 76 and no AV block. ? Patient is not on beta-blockers at this time given her bradycardia -Patient's echo had the following findings: Normal LV size and function. Grade I diastolic dysfunction. Estimated EF 65-70% Normal RV size and function. Trace MR, PI, Mild TR. Mild AV sclerosis without stenosis Plan: ? No rate control medications including CCB or Beta blockers due to hypotension and intermittent bradycardia. - All the intermittent atrial arrhythmias have resolved at the present point of time and no no further anticoagulation required as there were no arrhythmias and also patient has history of GI bleed. -Patient possibly has underlying sick sinus syndrome but her heart rate never went down below 55 bpm and now is between 70 to 80 bpm. ? Recommend aggressive repletion of the potassium and magnesium, maintain above 4 and 2 respectively, to avoid any arrhythmias. ?Will continue to monitor patient's heart rate as she has been stable in the 70s - 80s overnight. 4. MAKENZIE 5. Acute uremic encephalopathy, resolved ?Patient initially came in with altered mental status and BUN of 121 with creatinine of 9.5. ? Patient's baseline creatinine was around 1 and BUN 27 on 02/16/2024 ?Recommend to follow-up with nephrology recommendations ?Continue current management as per primary care team 6. Sepsis secondary to UTI versus intra-abdominal abscess 7. E. coli UTI 8. Intra-abdominal abscess 9. 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 Patient had an I&D on 04/01/2024 by general surgery ? Patient had a ex lap with reversal ileostomy on 04/09/2024 by general surgery ?Recommend to continue current management as per primary care team 10. Normocytic normochromic anemia ?Patient's hemoglobin has been in the 8-9's prior to admission ? On admission patient's hemoglobin was 12.6, today 12.1 ? Could be due to blood loss from surgery versus hemodilutional versus GI bleed ? Recommend close monitoring and to transfuse if hemoglobin less than 7 11. Complex partial seizures, new onset ?Patient had an episode of shakiness and blank stare on 03/26/2024 ? EEG was normal and MRI was unrevealing ?Patient currently on valproic acid ? Recommend to follow neurology recommendations 12. Pseudohyponatremia, resolved ?Patient's initial sodium was 123 with osmolality of 286 ?Continue current management as per primary care team 13. Hx of hypothyroidism 14. Hx of asthma 15. Hx of depression 16. Hx of bipolar disorder 17. Hx of dementia 18. Hx of JACKIE ?Continue current management as per primary care team Continue rest of management as per primary team. We are grateful to be able to participate in Mrs. Shell's care. Thank you for the consult Plan of care discussed with attending Travel Registered Nurse Icu, Dr. Manuel Arce MD PGY-1 Attending Provider Attestation/Addendum I have personally seen and examined the patient separately on the above date of service and discussed the plan of care with the resident. I reviewed the resident Dr. Dey consultation progress note and agree with the resident findings and plan in the note above and have also edited the documentation to reflect my findings and plan. Сергей Jackson M.D. Interventional Cardiology
--- NOTE | 2024-04-18 09:32 | PC.NURSE ---
pt. hit call light asking for pain meds. RN went to pt. room and when RN entered pt. room pt. was asleep. Pt. woken by RN and pt. refused medication at this time. Pt. educated to call if it is decided that pain medication is wanted/needed.
--- NOTE | 2024-04-18 10:18 | PC.SS ---
GUMMED TAPE PRESS OPERATOR conducted phone contact with patient's daughter, Sahra Shell ; to confirm discharge plan. Daughter confirmed discharge plan is for the patient to return home with [facility]. GUMMED TAPE PRESS OPERATOR notified daughter that patient will require wound vac upon discharge.
--- NOTE | 2024-04-18 10:22 | PC.SS ---
IT SYSTEMS MANAGER contacted wound nurse to inform of patient's discharge plan to transition home with wound vac. IT SYSTEMS MANAGER notified that authorization for wound vac would be submitted.
[2024-04-18] MEDS: MEGESTROL ACET SUSP 400 MG/10 ML UDC PO (11:08)
[2024-04-18] MEDS: SODIUM CHLORIDE 0.9% 1000 ML 1,000 ML 100 ML IV ×2 (11:08→21:16)
--- NOTE | 2024-04-18 11:49 | XR_ITS ---
Examination: Pelvic ultrasound, transabdominal, complete Technique: Transabdominal ultrasound of the pelvis performed using grayscale imaging Date and time of exam: April 18, 2024 1508 hours INDICATIONS: CT examination April 11 3.6 cm fat-containing mass left lower abdomen FINDINGS: Uterus not visualized Ovaries not visualized Abundant bowel gas No fluid in the cul-de-sac IMPRESSION: Extremely limited study secondary to bowel gas Consider MRI pelvis pre and post contrast follow-up
--- NOTE | 2024-04-18 13:33 | PC.SS ---
SS contacted Deepika Jiménez from [facility] who explained pt has co pay and she will contact her billing department for the amount. Deepika Jiménez explained dtr in the past refused to have pt apply for Medical at their facility. Fahad STOVER is aware.
--- NOTE | 2024-04-18 13:40 | CHAP ---
09:30 AM Visited by spiritual care volunteer Provided prayer for Patient.
--- NOTE | 2024-04-18 13:47 | ESPR_ITS ---
<Statement entered by Familia Sanchez MD - 04/18/24 18:40> Patient was seen and examined at bedside. Patient continued to be lethargic and unable to sit up to chair by herself. On review of her oral intake we noticed that she only take 1 meal per day and she feels that she is not hungry. For that reason started the patient on Megestrol, and was started the patient on IV fluid 100 mL/h. On examination for wound that showed significant improvement since last time. We noticed that on her last CT scan there is what it seems to be pelvic mass, we cannot rule out that that is a new abscess. For that reason we will order for the patient pelvic ultrasound as per the radiologist recommendations. - Patient's plan and care discussed with my attending, Dr. Lara Sanchez MD Internal Medicine PGY-2 Documentation for date of: 04/18/24 Subjective Subjective Interval history: Patient examined at bedside today. No acute overnight events. Says she is really tired and still having abdominal pain. Had a bowel movement today. Has not been getting out of bed. Does not want to talk much at this time because she is sleepy. Exam Vital Signs Temp Pulse Resp BP Pulse Ox O2 Del Method O2 Flow Rate 97.4 F 73 17 144/64 H 98 Nasal Cannula 1 04/18/24 08:00 04/18/24 08:00 04/18/24 08:00 04/18/24 08:00 04/18/24 08:00 04/18/24 08:00 04/18/24 08:00 Narrative Exam General: AAOx3, resting in bed HEENT: NCAT, PERRLA, EOMI, MMM, anicteric conjunctivae. Lungs: Clear MYRNA to auscultation and percussion, No accessory muscle use. Cardio: Normal S1/S2, regular rhythm, no murmurs, no JVD Abdomen: Soft, mild tenderness to palpation around wound VAC, no palpable masses, peristalsis present, no guarding or rebound. Wound VAC in place, but draining well, erythematous abdomen but improving Extremities: Symmetrical, no significant deformities, trace edema , non-tender, peripheral pulses presents. Neuro: AAOx3, patient was able to move all extremities. She is a lot more awake and responsive today. Was able to follow commands and answer all questions appropriately. Psych: Cooperative Objective Labs 04/19/24 04:40 04/19/24 04:40 Labs: Laboratory Results - last 24 hr 04/18/24 05:06 WBC 14.0 H D RBC 4.32 Hgb 12.1 Hct 37.8 MCV 88 MCH 28.0 MCHC 32.0 RDW Std Deviation 53.9 H Plt Count 218 Neut % (Auto) 43 Lymph % (Auto) 24 [facility] % (Auto) 10 Eos % (Auto) 2 Baso % (Auto) 0 Neut # (Auto) 6.0 Lymph # (Auto) 3.4 [facility] # (Auto) 1.4 H Eos # (Auto) 0.3 Baso # (Auto) 0.0 Immature Gran # (Auto) 2.83 H Absolute Nucleated RBC 0.00 Immature Gran % 20 H Nucleated RBC % 0 Sodium 136 Potassium 4.5 Chloride 104 Carbon Dioxide 26.4 Anion Gap 6 L BUN 19 Creatinine 0.8 Estim Creat Clear Calc 59.4 L eGFR > 60 BUN/Creatinine Ratio 24 H Glucose 69 L Calculated Osmolality 272 L Calcium 8.1 L Corrected Calcium 9.4 Phosphorus 1.9 L Magnesium 1.7 Total Bilirubin 0.2 L AST 12 ALT 8 L Alkaline Phosphatase 480 H D Total Protein 4.9 L Albumin 2.4 L Globulin 2.5 Albumin/Globulin Ratio 1.0 L ABG Interpretation ABG results: 03/21/24 05:40 ABG pH 7.35 ABG pCO2 41 ABG pO2 121 H ABG HCO3 23 ABG O2 Saturation 99 H ABG Base Excess -3 Quality Measures Quality Measures VTE prophylaxis and sepsis Current suspected stage: ruled out Possible source: skin/soft tissue Blood cultures ordered: completed in ED Antibiotic ordered: No Advance care planning discussed with:: patient Assessment & Plan Assessment Current Active Medications: Generic Name Dose Route Start Last Admin Trade Name Freq PRN Reason Stop Dose Admin Acetaminophen 650 mg 04/12/24 08:33 04/17/24 23:39 Acetaminophen 325 Mg Tablet PO 05/12/24 08:32 650 mg Q4HR PRN Administration Fever >101 and abdominal pain Dextrose 25 ml 04/14/24 11:20 Dextrose 50%-Water Inj 50 Ml Syringe IV 05/14/24 11:19 Q15MIN PRN BG 50-70 responsive npo pt Dextrose 50 ml 04/14/24 11:20 Dextrose 50%-Water Inj 50 Ml Syringe IV 05/14/24 11:19 Q15MIN PRN BG <50 OR BG <70 & pt unresponsive Diphenhydramine HCl 25 mg 04/09/24 00:50 04/13/24 05:26 Diphenhydramine Inj 50 Mg/Ml Vial IV 05/09/24 00:49 25 mg Q6HR PRN Administration ITCHING Docusate Sodium 100 mg 04/15/24 09:20 Docusate Sod 100 Mg Capsule PO 05/13/24 13:44 QDAY PRN CONSTIPATION Protocol Donepezil HCl 10 mg 03/21/24 21:00 04/17/24 21:05 Donepezil Hcl 5 Mg Tablet PO 04/20/24 20:59 10 mg HS ASHISH Administration Gabapentin 100 mg 04/16/24 14:00 04/18/24 13:37 Gabapentin 100 Mg Capsule PO 05/16/24 13:59 100 mg TID ASHISH Administration Glucagon 1 mg 04/14/24 11:20 Glucagon Inj 1 Mg Vial IM Q15MIN PRN BG <70, and no IV access Heparin Sodium (Porcine) 5,000 unit 04/12/24 21:00 04/18/24 08:05 Heparin Sod Inj 5000 Unit/Ml Vial SC 04/26/24 20:59 5,000 unit BID ASHISH Administration Hydralazine HCl 10 mg 03/21/24 15:45 Hydralazine Hcl 10 Mg Tablet PO 04/20/24 17:59 Q6HR PRN SBP>160 Albumin Human 25 gm in 100 mls @ 100 mls/min 03/21/24 10:54 Albuminar-25 Ivpb IV PRN PRN DIALYSIS Sodium Chloride 1,000 mls @ 100 mls/hr 04/18/24 10:52 04/18/24 11:08 Ns IV 05/18/24 10:51 100 mls/hr .Q10H ASHISH Administration Levothyroxine Sodium 125 mcg/ 175 mcg 04/13/24 06:00 04/18/24 05:16 Levothyroxine Sodium 50 mcg PO 05/13/24 05:59 175 mcg ACBR ASHISH Administration Lidocaine HCl 30 ml 04/15/24 12:38 Lidocaine Hcl 1% 20 Ml Vial INFL X1 PRN PIV insertion Megestrol Acetate 400 mg 04/18/24 11:00 12/10/24 11:08 Megestrol Acet Susp 400 Mg/10 Ml Udc PO 05/18/24 10:59 400 mg DAILY ASHISH Administration Ondansetron HCl 4 mg 03/21/24 06:08 04/15/24 07:12 Ondansetron Inj 2 Mg/Ml Inj 2 Ml IV 04/20/24 06:07 4 mg Q6H PRN Administration NAUSEA OR VOMITING Protocol Pantoprazole Sodium 40 mg 04/15/24 09:00 04/18/24 08:05 Pantoprazole 40 Mg Tablet PO 05/15/24 08:59 40 mg QDAY ASHISH Administration Polyethylene Glycol 17 gm 04/15/24 09:20 Polyethylene Glycol 17 Gm Packet PO 05/14/24 08:59 QDAY PRN CONSTIPATION Protocol Sodium Chloride 3 ml 03/21/24 08:25 Sodium Chloride Rt Tia 0.9% 3 Ml Nebu INH 04/20/24 08:24 PRN PRN SOLN Valproic Acid 750 mg 04/03/24 09:00 04/18/24 08:05 Valproic Acid Syrup 250 Mg/5 Ml Udc PO 05/03/24 08:59 750 mg BID ASHISH Administration Plan 78-year-old female with a past medical history of hypothyroidism, hypertension, JACKIE, asthma, depression, dementia, recurrent UTI, and is status post hemicolectomy with ileostomy admitted for acute uremic encephalopathy, stage III acute kidney injury admitted sepsis secondary to UTI versus intra-abdominal abscess. Hyperkalemic protocol initiated with 5 units of insulin, D50 and sevelamer as well as albuterol on admission. Patient received emergent dialysis for worsening renal function and electrolyte abnormalities. #S/P Reverse ileostomy, post operative day 12 #Hx of Right colectomy with diverting ileostomy #Intra-abdominal fluid collection, possible abscess or infection #Reactive Leukocytosis, worsening Concern for patient as she is not getting up and moving Encouraging patient to ambulate Pt was to be getting discharged yesterday, but due to insurance issues, pt stayed WBC 14 ?Surgery on consult, appreciate recs ?Wound VAC ?Cardiac diet ?Tylenol as needed ?Physical therapy ?Continue wound care ?RD on consult, appreciate recs ?Encourage ambulation, PT on consult ?Discontinue Jones ?Gabapentin 100 3 times daily #Failure to thrive #Poor oral intake #Hypoglycemia Secondary to poor oral intake, and patient being on liquid diet Patient is very lethargic at this time, was given D50 x 1, will limit sedating medicines Patient's oral intake is poor with meals at this time, will need to add medicine for this but will not give Remeron as this is sedating Patient needs to ambulate as much as tolerated for improvement Plan: ?Megace 400 mL daily, ?Hypoglycemic protocol in place ?PT consult ?Up to chair with assistance ?NS 100 cc/hour #Constipation-resolved Postsurgical constipation Resolved with Colace and MiraLAX -Will hold laxatives #MAKENZIE, stable Differential diagnosis: Prerenal versus possible ischemic ATN Patient might likely have prerenal MAKENZIE in the setting of poor oral intake. Patient has not been consuming 100% of meals. Creatinine 1 today ?Renally dose medicines ? Avoid nephrotoxic agents #Hypotension, resolved #Bradycardia, resolved #Hypothermia, resolved Patient was left ICU, was in there for 2 days for evaluation of hypothermia, bradycardia and hypotension which required pressor support (1) Bradycardia could have been attributed due to post op or medication side effect such as Ambien which she took before the symptoms started, however she has been taking Ambien for years Could be component of septic shock #Chronic insomnia Symptomatic currently, has not restarted home Ambien ?Holding Ambien in setting of bradycardia ?Gabapentin 200 mg 3 times daily #Electrolyte imbalances #Hyperphosphatemia-resolved #Hyperkalemia, resolved #Hypomagnesemia Urgent dialysis indicated on admission, patient had temporary catheter placement. Holding dialysis for now because renal function is improving Plan: ? Payroll Services Analyst Dr. Rahman signing off given improved renal function ? Continue to monitor CMP #Normocytic anemia Hemoglobin has dropped from 11 to 8 status post ex lap, report says blood loss about 100 mL Anemia has improved back to baseline at 11 -CBC trend #Euosmolar hyponatremia, resolved Possible component of dehydration leading to hyponatremia due to poor oral intake. Hyponatremia is likely also contributed to GI losses through colostomy bag. On physical examination, patient had very dry mucous membranes and often does not consume full meals. Sodium 139 today #E.Coli UTI, improving #History of recurrent UTI Patient initially reported dysuria and cloudy urine with hx of recurrent UTIs. CT A/P 03/31: Fluid collection 5.4 x 4.0 x 2.2 cm in subcutaneous fatty tissue anterior pelvic wall, differentials include abcess and hematoma Repeat Blood culture, negative x2 final. Urine cultures positive for E. coli, pansensitive. -Completed 1 week course of doxycycline and IV Zosyn from 03/21-04/02) #New onset seizures #Complex partial seizures Suspicion of seizures marked by shakiness and blank staring. Teleneuro was consulted. CT head and CTA negative for any acute findings. Patient has been seizure free since New onset intermittent bilateral tremors noted. Patient denied any dizziness, headache, nausea, vomiting. New onset of seizures could be because patient stopped taking Depakote, is on 250 at home, takes Depakote for bipolar disorder -Neurologist Dr Brush consulted; suspected complex partial seizures and recommended doubling valproate dose in place of Keppra due to better side effect profile. -Valproate 750mg twice daily -Seizure precautions #History of hypothyroidism Patient has a history of hypothyroidism. She takes levothyroxine at home. ?Levothyroxine 175 mcg before breakfast #History of hypertension Chronic, uncontrolled Patient has a longstanding hypertension on both metoprolol and hydralazine. Plan ?Metoprolol tartrate 25mg BID ?Hydralazine 10mg Q6HR PRN for SBP >160 #History of depression #History of dementia #History of bipolar disorder #History of anxiety Patient takes valproate for bipolar, home dose 250 mg Patient experiencing anxiety currently, do not want to overly sedate patient Plan: ?Gabapentin 200 mg 3 times daily -Donepezil 10mg daily -Valproate 750mg BID #History of asthma Plan: ? DuoNebs every 4 hours breathing treatment as needed #Hypochloremia-resolved #Hypocalcemia-resolved #Hyperphosphatemia-resolved #Sepsis, resolved #Acute encephalopathy uremic vs infectious-resolved #Health Maintenance Disposition: Telemetry DVT prophylaxis: Heparin GI prophylaxis: Protonix Diet: Cardiac CODE STATUS: Full The patient's plan was discussed with attending Dr. Bermudez and senior resident Dr. 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 Was initiated. During course of hospitalization, patient did receive multiple hemodialysis session and plan for reversing the ileostomy. As of now, continue to monitor closely. As for mentation, patient is alert and oriented to name, date of and place and kidney function improving without need for further hemodialysis. In addition, patient underwent reversal of ileostomy and currently has a wound VAC in place. I reviewed above note and agree with findings and plans. I have also personally examined the patient with medicine team and went over assessment and plan with medical team including hospital intern and resident physician.
--- NOTE | 2024-04-18 13:56 | PC.NURSE ---
Verified with wound betting clerk vac was changed yesterday per Wound RN Ellen.
--- NOTE | 2024-04-18 15:42 | PC.WOUND ---
Made aware discharge plan home with home health to daughter Sahra. [facility] to follow. Submitted to [facility] for home wound vac. Rental Order Number [id number]. [facility] Phone , Fax . Clinical documents including face sheet, H&P, consults, OP notes, labs, RD and WCC notes faxed with return receipt. Requested of Dr. Flynn for esignature- aware.
--- NOTE | 2024-04-18 16:29 | PC.SS ---
Rounding Note: D/C held due to the patient's elevated WBC.
[2024-04-18] MEDS: Magnesium Sulfate 4 GM Ivpb 4 GM/50 ML BAG IV (18:23)
[2024-04-18] MEDS: DONEPEZIL HCL 5 MG TABLET 10 MG PO (21:16)
[2024-04-19] VITALS (7 sets, daily range): BP systolic 131–164; BP diastolic 69–87; PULSE 69–141; RESP 15–19; TEMP 36.1–36.3; O2SAT 95–100; BMI 30.4; BMI 12.0
[2024-04-19] MEDS: LEVOTHYROXINE SODIUM 125 MCG, LEVOTHYROXINE SODIUM 50 MCG 175 MCG PO (05:32)
[2024-04-19] MEDS: GABAPENTIN 100 MG CAPSULE PO ×3 (05:32→21:38)
[2024-04-19 05:55] LABS: Basophils % (Auto) 0 % (0-2.5); Eosinophils # (Auto) 0.3 Thou/mm3 (0.0-0.5); Eosinophils % (Auto) 2 % (0-10); Hematocrit 35.8 % (36.0-46.0); Hemoglobin 11.7 g/dL (12.0-16.0); Immature Granulocytes % (Auto) 18 % (0-0); Immature Granulocytes Auto 2.45 Thou/mm3 (0.00-0.00); Lymphocytes % (Auto) 22 % (10-50); Mean Corpuscular HGB Conc 32.7 g/dl (31.0-37.0); Mean Corpuscular Hemoglobin 28.3 pg (25.0-35.0); Mean Corpuscular Volume 87 fL (80-100); Monocytes # (Auto) 1.3 Thou/mm3 (0.0-0.8); Monocytes % (Auto) 10 % (0-12); Neutrophils # (Auto) 6.7 Thou/mm3 (1.8-7.7); Neutrophils % (Auto) 49 % (37-80); Nucleated Red Blood Cell % 0 /100 WBC (0); Platelet Count 212 Thou/mm3 (140-440); RDW Standard Deviation 53.9 fL (36.4-46.3); Red Blood Count 4.13 Miln/mm3 (4.00-5.20); White Blood Count 13.8 Thou/mm3 (3.6-11.0)
[2024-04-19 06:59] LABS: Alanine Aminotransferase 7 U/L (10-49); Albumin, Serum 2.2 gm/dL (3.4-4.8); Albumin/Globulin Ratio 0.9 (1.2-2.2); Alkaline Phosphatase 394 U/L (46-116); Anion Gap 4 (7-16); Aspartate Amino Transferase < 10 U/L (0-34); BUN/Creatinine Ratio 27 Ratio (12-20); Bilirubin,Total 0.2 mg/dL (0.3-1.2); Blood Urea Nitrogen 16 mg/dL (9-23); Calcium 7.5 mg/dL (8.3-10.6); Calcium (Corrected) 8.9 mg/dL (8.5-10.1); Carbon Dioxide 25.9 mMol/L (20.0-31.0); Chloride 105 mMol/L (98-107); Creatine Kinase < 15 U/L (34-171); Creatinine (Component) 0.6 mg/dL (0.6-1.3); Estimated Creatinine Clearance 79.2 mL/min (>60); Globulin 2.4 gm/dL (2.3-3.5); Glucose 77 mg/dL (74-106); Magnesium 1.9 mg/dL (1.6-2.6); Osmolality,Calculated 270 (275-295); Phosphorous 1.7 mg/dL (2.4-5.1); Sodium 135 mMol/L (136-145); Total Protein 4.6 gm/dL (5.7-8.2); eGFR > 60 See Note
--- NOTE | 2024-04-19 08:25 | PC.WOUND ---
Addendum entered by Ellen Durbin RN 04/19/24 15:03: Spoke with genny Rogers wound vac to be delivered today. Ok to discharge when medially cleared from IM team. Addendum entered by Ellen Durbin RN 04/19/24 14:07: Spoke with Jimenez at [facility], wound vac has been authorized for release. Unit to be delivered to bedside today. Janice BENÍTEZ aware to monitor for delivery. Fahad royal wound vac available today. Addendum entered by Ellen Durbin RN 04/19/24 11:18: [facility] signed rx by Dr. Flynn obtained, faxed with clinical notes to [phone] with return receipt. Addendum entered by Ellen Durbin RN 04/19/24 09:16: Call received from PIETER Reece not contracted with [facility]. Spoke with Fahad Espinoza. Obtained contact of [facility]. [phone]. Called [facility] spoke with martir Gaona contracted with [facility]. RX to be faxed to mo [phone]. Will submit for wound vac DME through [facility]. Original Note: Followed up with [facility] regarding home wound vac. Rental order pending insurance authorization.
[2024-04-19] MEDS: VALPROIC ACID SYRUP 250 MG/5 ML UDC 750 MG PO ×2 (08:45→21:38)
[2024-04-19] MEDS: DEXTROSE 5%-NS 1,000 ML 100 ML IV ×2 (08:45→19:37)
[2024-04-19] MEDS: MEGESTROL ACET SUSP 400 MG/10 ML UDC PO (08:45)
[2024-04-19] MEDS: HEPARIN SOD INJ 5000 UNIT/ML VIAL SC ×2 (08:46→21:39)
[2024-04-19] MEDS: PANTOPRAZOLE 40 MG TABLET PO (08:46)
[2024-04-19] MEDS: NAPH,KPH MBDB 1 PACKET (1.5 GM) 2 PACKET PO (08:53)
--- NOTE | 2024-04-19 09:24 | PD.RESPRO ---
Documentation for date of: 04/19/24 Subjective Subjective Interval history: Patient was seen and examined at bedside this morning. Patient was resting peacefully in bed Patient did have some PVCs overnight, but has maintained in the heart rate of 80 to 90s. Patient does not have any cardiac complaints at this time Potassium 4 and magnesium 1.9, recommend to aggressively replete potassium magnesium to keep above 4 and 2 respectively Gave 2gm mg again today Recommend to avoid any beta-blockers, calcium channel blockers, or any other rate controlling drugs given patient's sinus bradycardia. Patient's echo had the following findings: Normal LV size and function. Grade I diastolic dysfunction. Estimated EF 65-70% Normal RV size and function. Trace MR, PI, Mild TR. Mild AV sclerosis without stenosis Exam Vital Signs Temp Pulse Resp BP Pulse Ox O2 Del Method O2 Flow Rate 97 F 80 17 146/75 H 100 Room Air 2 04/19/24 07:55 04/19/24 07:55 04/19/24 07:55 04/19/24 07:55 04/19/24 07:55 04/19/24 07:55 04/19/24 04:00 FiO2 90 04/19/24 07:55 Narrative Exam General: A/O x3, no acute distress Eyes: Patient's pupils are responsive to light. EOMI, patient grossly intact Ears: no visible ear discharge, Hearing grossly intact. Nose: No visible nasal discharge. Mouth/Throat: Dry mucous membranes, no redness, no lesions. Neck: Neck supple, non-tender, no cervical lymphadenopathy. Lungs: Clear MYRNA to auscultation and percussion, No accessory muscle use. Cardio: Normal S1/S2, regular rhythm, no murmurs, no JVD Abdomen: Soft, mild tenderness to palpation around wound VAC, no palpable masses, peristalsis present, no guarding or rebound. Wound VAC in place. Extremities: Symmetrical, no significant deformities, no peripheral edema , non-tender, peripheral pulses presents. Skin: No rashes, no lesions, warm to touch. Neuro: Patient was able to move all extremities. She was able to answer all questions. Objective Labs 04/19/24 04:40 04/19/24 04:40 Labs: Laboratory Results - last 24 hr 04/19/24 04:40 WBC 13.8 H RBC 4.13 Hgb 11.7 L Hct 35.8 L MCV 87 MCH 28.3 MCHC 32.7 RDW Std Deviation 53.9 H Plt Count 212 Neut % (Auto) 49 Lymph % (Auto) 22 [place] % (Auto) 10 Eos % (Auto) 2 Baso % (Auto) 0 Neut # (Auto) 6.7 Lymph # (Auto) 3.0 [place] # (Auto) 1.3 H Eos # (Auto) 0.3 Baso # (Auto) 0.0 Immature Gran # (Auto) 2.45 H Absolute Nucleated RBC 0.00 Immature Gran % 18 H Nucleated RBC % 0 Sodium 135 L Potassium 4.0 D Chloride 105 Carbon Dioxide 25.9 Anion Gap 4 L BUN 16 Creatinine 0.6 Estim Creat Clear Calc 79.2 eGFR > 60 BUN/Creatinine Ratio 27 H Glucose 77 Calculated Osmolality 270 L Calcium 7.5 L Corrected Calcium 8.9 Phosphorus 1.7 L Magnesium 1.9 Total Bilirubin 0.2 L AST < 10 ALT 7 L Alkaline Phosphatase 394 H D Total Creatine Kinase < 15 L Total Protein 4.6 L Albumin 2.2 L Globulin 2.4 Albumin/Globulin Ratio 0.9 L ABG Interpretation ABG results: 03/21/24 05:40 ABG pH 7.35 ABG pCO2 41 ABG pO2 121 H ABG HCO3 23 ABG O2 Saturation 99 H ABG Base Excess -3 Quality Measures Quality Measures VTE prophylaxis and sepsis Current suspected stage: ruled out Possible source: skin/soft tissue Blood cultures ordered: completed in ED Antibiotic ordered: No Advance care planning discussed with:: patient and child Assessment & Plan Assessment Current Active Medications: Generic Name Dose Route Start Last Admin Trade Name Freq PRN Reason Stop Dose Admin Acetaminophen 650 mg 04/12/24 08:33 04/17/24 23:39 Acetaminophen 325 Mg Tablet PO 05/12/24 08:32 650 mg Q4HR PRN Administration Fever >101 and abdominal pain Dextrose 25 ml 04/14/24 11:20 Dextrose 50%-Water Inj 50 Ml Syringe IV 05/14/24 11:19 Q15MIN PRN BG 50-70 responsive npo pt Dextrose 50 ml 04/14/24 11:20 Dextrose 50%-Water Inj 50 Ml Syringe IV 05/14/24 11:19 Q15MIN PRN BG <50 OR BG <70 & pt unresponsive Diphenhydramine HCl 25 mg 04/09/24 00:50 04/13/24 05:26 Diphenhydramine Inj 50 Mg/Ml Vial IV 05/09/24 00:49 25 mg Q6HR PRN Administration ITCHING Docusate Sodium 100 mg 04/15/24 09:20 Docusate Sod 100 Mg Capsule PO 05/13/24 13:44 QDAY PRN CONSTIPATION Protocol Donepezil HCl 10 mg 03/21/24 21:00 04/18/24 21:16 Donepezil Hcl 5 Mg Tablet PO 04/20/24 20:59 10 mg HS ASHISH Administration Gabapentin 100 mg 04/16/24 14:00 04/19/24 05:32 Gabapentin 100 Mg Capsule PO 05/16/24 13:59 100 mg TID ASHISH Administration Glucagon 1 mg 04/14/24 11:20 Glucagon Inj 1 Mg Vial IM Q15MIN PRN BG <70, and no IV access Heparin Sodium (Porcine) 5,000 unit 04/12/24 21:00 04/19/24 08:46 Heparin Sod Inj 5000 Unit/Ml Vial SC 04/26/24 20:59 5,000 unit BID ASHISH Administration Hydralazine HCl 10 mg 03/21/24 15:45 Hydralazine Hcl 10 Mg Tablet PO 04/20/24 17:59 Q6HR PRN SBP>160 Albumin Human 25 gm in 100 mls @ 100 mls/min 03/21/24 10:54 Albuminar-25 Ivpb IV PRN PRN DIALYSIS Dextrose/Sodium Chloride 1,000 mls @ 100 mls/hr 04/19/24 08:00 04/19/24 08:45 D5-Ns IV 05/19/24 07:59 100 mls/hr .Q10H ASHISH Administration Levothyroxine Sodium 125 mcg/ 175 mcg 04/13/24 06:00 04/19/24 05:32 Levothyroxine Sodium 50 mcg PO 05/13/24 05:59 175 mcg ACBR ASHISH Administration Lidocaine HCl 30 ml 04/15/24 12:38 Lidocaine Hcl 1% 20 Ml Vial INFL X1 PRN PIV insertion Megestrol Acetate 400 mg 04/18/24 11:00 04/19/24 08:45 Megestrol Acet Susp 400 Mg/10 Ml Udc PO 05/18/24 10:59 400 mg DAILY ASHISH Administration Ondansetron HCl 4 mg 03/21/24 06:08 04/15/24 07:12 Ondansetron Inj 2 Mg/Ml Inj 2 Ml IV 04/20/24 06:07 4 mg Q6H PRN Administration NAUSEA OR VOMITING Protocol Pantoprazole Sodium 40 mg 04/15/24 09:00 04/19/24 08:46 Pantoprazole 40 Mg Tablet PO 05/15/24 08:59 40 mg QDAY ASHISH Administration Polyethylene Glycol 17 gm 04/15/24 09:20 Polyethylene Glycol 17 Gm Packet PO 05/14/24 08:59 QDAY PRN CONSTIPATION Protocol Sodium Chloride 3 ml 03/21/24 08:25 Sodium Chloride Rt Tia 0.9% 3 Ml Nebu INH 04/20/24 08:24 PRN PRN SOLN Valproic Acid 750 mg 04/03/24 09:00 04/19/24 08:45 Valproic Acid Syrup 250 Mg/5 Ml Udc PO 05/03/24 08:59 750 mg BID ASHISH Administration Plan 78-year-old female with past medical history of hypothyroidism, hypertension, JACKIE, asthma, depression, bipolar disorder, dementia, recurrent UTIs, and 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 1. Symptomatic sinus bradycardia - resolved 2. Intermittent Atrial Arrhythmias, A-fib vs Atrial tachycardia - resolved 3. Hypotension ? Sinus Bradycardia mostly likely vasovagal secondary to postop pain and nausea vs underlying sick sinus syndrome ? Patient's has atrial arrhythmias there is with evidence of significant frequent PACs. There was evidence of atrial arrhythmias which could be A-fib versus atrial tachycardia intermittently which are mostly sec to sepsis and electrolyte abnormalities. At this time patient is rate controlled. ? Patient has good chronotropic response ? EKG showed sinus bradycardia with first-degree AV block ? Prior EKG on 04/09/2024 showed sinus rhythm with a heart rate was 76 and no AV block. ? Patient is not on beta-blockers at this time given her bradycardia -Patient's echo had the following findings: Normal LV size and function. Grade I diastolic dysfunction. Estimated EF 65-70% Normal RV size and function. Trace MR, PI, Mild TR. Mild AV sclerosis without stenosis Plan: ? No rate control medications including CCB or Beta blockers due to hypotension and intermittent bradycardia. - All the intermittent atrial arrhythmias have resolved at the present point of time and no no further anticoagulation required as there were no arrhythmias and also patient has history of GI bleed. -Patient possibly has underlying sick sinus syndrome but her heart rate never went down below 55 bpm and now is between 80 to 90 bpm. ? Recommend aggressive repletion of the potassium and magnesium, maintain above 4 and 2 respectively, to avoid any arrhythmias. ?Will continue to monitor patient's heart rate as she has been stable in the 80s - 90s overnight. 4. MAKENZIE 5. Acute uremic encephalopathy, resolved ?Patient initially came in with altered mental status and BUN of 121 with creatinine of 9.5. ? Patient's baseline creatinine was around 1 and BUN 27 on 02/16/2024 ?Recommend to follow-up with nephrology recommendations ?Continue current management as per primary care team 6. Sepsis secondary to UTI versus intra-abdominal abscess 7. E. coli UTI 8. Intra-abdominal abscess 9. 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 Patient had an I&D on 04/01/2024 by general surgery ? Patient had a ex lap with reversal ileostomy on 04/09/2024 by general surgery ?Recommend to continue current management as per primary care team 10. Normocytic normochromic anemia ?Patient's hemoglobin has been in the 8-9's prior to admission ? On admission patient's hemoglobin was 12.6, today 11.7 ? Could be due to blood loss from surgery versus hemodilutional versus GI bleed ? Recommend close monitoring and to transfuse if hemoglobin less than 7 11. Complex partial seizures, new onset ?Patient had an episode of shakiness and blank stare on 03/26/2024 ? EEG was normal and MRI was unrevealing ?Patient currently on valproic acid ? Recommend to follow neurology recommendations 12. Pseudohyponatremia, resolved ?Patient's initial sodium was 123 with osmolality of 286 ?Continue current management as per primary care team 13. Hx of hypothyroidism 14. Hx of asthma 15. Hx of depression 16. Hx of bipolar disorder 17. Hx of dementia 18. Hx of JACKIE ?Continue current management as per primary care team Continue rest of management as per primary team. We are grateful to be able to participate in Mrs. Shell's care. Thank you for the consult Plan of care discussed with attending Junior Net Developer, Dr. Manuel Arce MD PGY-1 Attending Provider Attestation/Addendum I have personally seen and examined the patient separately on the above date of service and discussed the plan of care with the resident. I reviewed the resident Dr. Dey consultation progress note and agree with the resident findings and plan in the note above and have also edited the documentation to reflect my findings and plan. Сергей Jackson M.D. Interventional Cardiology
[2024-04-19] MEDS: Magnesium Sulfate 2 GM Ivpb 2 GM/50 ML BAG IV (10:01)
[2024-04-19] MEDS: MORPHINE SULF INJ 10 MG/ML VIAL 2 MG IVP (10:30)
[2024-04-19] MEDS: ONDANSETRON INJ 2 MG/ML INJ 2 ML 4 MG IV (10:37)
--- NOTE | 2024-04-19 10:37 | ESPR_ITS ---
Documentation for date of: 04/19/24 Subjective Subjective Brief History: 78F with HTN, CHF, hypothyroidism who underwent right hemicolectomy with diverting ileostomy for fecal contamination 12/19, admitted in past for MAKENZIE here now with AMS and acute renal failure, planned for emergent HD. Workup shows leukocytosis and possible abdominal fluid collection PMH: HTN, CHF, hypothyroidism, bipolar disorder PSHx: Tonsillectomy, appendectomy, cholecystectomy, hysterectomy, R hemicolectomy with diverting ileostomy 12/19 for benign necrotic mass Meds: no anticoagulation Allergies: haldol, naproxen, fluoxetine Social hx: Nonsmoker Narrative: Pain controlled, no nausea, remaining afebrile Exam Vital Signs Temp Pulse Resp BP Pulse Ox O2 Del Method O2 Flow Rate 97 F 80 17 146/75 H 100 Room Air 2 04/19/24 07:55 04/19/24 07:55 04/19/24 07:55 04/19/24 07:55 04/19/24 07:55 04/19/24 07:55 04/19/24 04:00 FiO2 90 04/19/24 07:55 Constitutional Constitutional: no acute distress Routine Respiratory Exam Respiratory: Present no resp distress Routine Abdominal Exam Abdominal: Present soft and wound (midline wound with small amount of fibrinous tissue at base, no bleeding, no fluctuance); Absent tenderness or distended Results Results: Laboratory Laboratory results: results reviewed Assessment & Plan Plan 78F with HTN, CHF, hypothyroidism who underwent right hemicolectomy with d iverting ileostomy for fecal contamination 12/19, admitted with acute renal failure, improved from that standpoint, now s/p ileostomy reversal 04/09, gradually recovering OK for dc from my standpoint Will follow up as outpt Procedures Procedures Exploratory laparotomy, reversal of ileostomy
--- NOTE | 2024-04-19 10:40 | CHAP ---
Patient was visited by a Spiritual Care Volunteer on 04/19/2024 between 09 and 09 and received comfort, encouragement, and/or prayer.
--- NOTE | 2024-04-19 11:14 | PC.CM ---
Addendum entered by Jimmy Arnold RN 04/19/24 15:39: left VM for Lilly. Addendum entered by Jimmy Arnold RN 04/19/24 15:38: called Lilly at [facility] to see if they can see the pt on Wednesday? Addendum entered by Jimmy Arnold RN 04/19/24 15:34: Since pt has [employer] [place] insurance, called [facility], spoke to Jocelyn. She stated [facility] won't be able to see the pt on Wednesday and to send the referral to [facility] which is also pt daughter preference. Addendum entered by Jimmy Arnold RN 04/19/24 15:31: Spoke to Ellen/wound nurse, she will be getting wound vac today and pt will need wound vac changed M,W,F. Pt has [employer] [place] [employer] insurance. HH referral sent on [employer]. Awaiting responses. Pending Start of care date. Original Note: Entered pt on [employer]. Per SS notes daughter preference is [facility].
[2024-04-19 12:35] LABS: Atypical Lymphs 1+; Band Neutrophils (Manual) 5 % (0-6); Eosinophils (Manual) 2 % (0-4); Lymphocytes (Manual) 21 % (20-44); Metamyelocytes (Manual) 1 % (0-0); Monocytes (Manual) 10 % (2-9); Myelocytes (Manual) 9 % (0-0); Neutrophils (Manual) 61 % (50-70)
--- NOTE | 2024-04-19 13:05 | PD.RESPRO ---
Documentation for date of: 04/19/24 Subjective Subjective Interval history: Patient examined at bedside today. No acute overnight events. Requesting some pain medication at this time, oxycodone, for abdominal pain and some back pain. She feels a little more awake today, however believes that the year is 2020 today. No other complaints this time Exam Vital Signs Temp Pulse Resp BP Pulse Ox O2 Del Method O2 Flow Rate 97 F 80 17 146/75 H 100 Room Air 2 04/19/24 07:55 04/19/24 07:55 04/19/24 07:55 04/19/24 07:55 04/19/24 07:55 04/19/24 07:55 04/19/24 04:00 FiO2 90 04/19/24 07:55 Narrative Exam General: AAOx2 (not time), resting in bed, a bit lethargic HEENT: NCAT, PERRLA, EOMI, MMM, anicteric conjunctivae. Lungs: Clear MYRNA to auscultation and percussion, No accessory muscle use. Cardio: Normal S1/S2, regular rhythm, no murmurs, no JVD Abdomen: Soft, mild tenderness to palpation around wound VAC, no palpable masses, peristalsis present, no guarding or rebound. Wound VAC in place, but draining well, erythematous abdomen but improving Extremities: Symmetrical, no significant deformities, trace edema , non-tender, peripheral pulses presents. Neuro: AAOx2 (not time), patient was able to move all extremities. Psych: Cooperative Objective Labs 04/19/24 04:40 04/19/24 04:40 Labs: Laboratory Results - last 24 hr 04/19/24 04:40 WBC 13.8 H RBC 4.13 Hgb 11.7 L Hct 35.8 L MCV 87 MCH 28.3 MCHC 32.7 RDW Std Deviation 53.9 H Plt Count 212 Neut % (Auto) 49 Lymph % (Auto) 22 [place] % (Auto) 10 Eos % (Auto) 2 Baso % (Auto) 0 Neut # (Auto) 6.7 Lymph # (Auto) 3.0 [place] # (Auto) 1.3 H Eos # (Auto) 0.3 Baso # (Auto) 0.0 Immature Gran # (Auto) 2.45 H Absolute Nucleated RBC 0.00 Immature Gran % 18 H Neutrophils % (Manual) 61 Monocytes % (Manual) 10 H Eosinophils % (Manual) 2 Metamyelocytes % 1 H Myelocytes % 9 H Nucleated RBC % 0 Band Neutrophils 5 D Lymphocytes (Manual) 21 Atypical Lymphocytes 1+ Sodium 135 L Potassium 4.0 D Chloride 105 Carbon Dioxide 25.9 Anion Gap 4 L BUN 16 Creatinine 0.6 Estim Creat Clear Calc 79.2 eGFR > 60 BUN/Creatinine Ratio 27 H Glucose 77 Calculated Osmolality 270 L Calcium 7.5 L Corrected Calcium 8.9 Phosphorus 1.7 L Magnesium 1.9 Total Bilirubin 0.2 L AST < 10 ALT 7 L Alkaline Phosphatase 394 H D Total Creatine Kinase < 15 L Total Protein 4.6 L Albumin 2.2 L Globulin 2.4 Albumin/Globulin Ratio 0.9 L ABG Interpretation ABG results: 03/21/24 05:40 ABG pH 7.35 ABG pCO2 41 ABG pO2 121 H ABG HCO3 23 ABG O2 Saturation 99 H ABG Base Excess -3 Quality Measures Quality Measures VTE prophylaxis and sepsis Current suspected stage: ruled out Possible source: skin/soft tissue Blood cultures ordered: completed in ED Antibiotic ordered: No Advance care planning discussed with:: patient Assessment & Plan Assessment Current Active Medications: Generic Name Dose Route Start Last Admin Trade Name Freq PRN Reason Stop Dose Admin Acetaminophen 650 mg 04/12/24 08:33 04/17/24 23:39 Acetaminophen 325 Mg Tablet PO 05/12/24 08:32 650 mg Q4HR PRN Administration Fever >101 and abdominal pain Dextrose 25 ml 04/14/24 11:20 Dextrose 50%-Water Inj 50 Ml Syringe IV 05/14/24 11:19 Q15MIN PRN BG 50-70 responsive npo pt Dextrose 50 ml 04/14/24 11:20 Dextrose 50%-Water Inj 50 Ml Syringe IV 05/14/24 11:19 Q15MIN PRN BG <50 OR BG <70 & pt unresponsive Diphenhydramine HCl 25 mg 04/09/24 00:50 04/13/24 05:26 Diphenhydramine Inj 50 Mg/Ml Vial IV 05/09/24 00:49 25 mg Q6HR PRN Administration ITCHING Docusate Sodium 100 mg 04/15/24 09:20 Docusate Sod 100 Mg Capsule PO 05/13/24 13:44 QDAY PRN CONSTIPATION Protocol Donepezil HCl 10 mg 03/21/24 21:00 04/18/24 21:16 Donepezil Hcl 5 Mg Tablet PO 04/20/24 20:59 10 mg HS ASHISH Administration Gabapentin 100 mg 04/16/24 14:00 04/19/24 05:32 Gabapentin 100 Mg Capsule PO 05/16/24 13:59 100 mg TID ASHISH Administration Glucagon 1 mg 04/14/24 11:20 Glucagon Inj 1 Mg Vial IM Q15MIN PRN BG <70, and no IV access Heparin Sodium (Porcine) 5,000 unit 04/12/24 21:00 04/19/24 08:46 Heparin Sod Inj 5000 Unit/Ml Vial SC 04/26/24 20:59 5,000 unit BID ASHISH Administration Hydralazine HCl 10 mg 03/21/24 15:45 Hydralazine Hcl 10 Mg Tablet PO 04/20/24 17:59 Q6HR PRN SBP>160 Albumin Human 25 gm in 100 mls @ 100 mls/min 03/21/24 10:54 Albuminar-25 Ivpb IV PRN PRN DIALYSIS Dextrose/Sodium Chloride 1,000 mls @ 100 mls/hr 04/19/24 08:00 04/19/24 08:45 D5-Ns IV 05/19/24 07:59 100 mls/hr .Q10H ASHISH Administration Levothyroxine Sodium 125 mcg/ 175 mcg 04/13/24 06:00 04/19/24 05:32 Levothyroxine Sodium 50 mcg PO 05/13/24 05:59 175 mcg ACBR ASHISH Administration Lidocaine HCl 30 ml 04/15/24 12:38 Lidocaine Hcl 1% 20 Ml Vial INFL X1 PRN PIV insertion Megestrol Acetate 400 mg 04/18/24 11:00 04/19/24 08:45 Megestrol Acet Susp 400 Mg/10 Ml Udc PO 05/18/24 10:59 400 mg DAILY ASHISH Administration Ondansetron HCl 4 mg 03/21/24 06:08 04/19/24 10:37 Ondansetron Inj 2 Mg/Ml Inj 2 Ml IV 04/20/24 06:07 4 mg Q6H PRN Administration NAUSEA OR VOMITING Protocol Pantoprazole Sodium 40 mg 04/15/24 09:00 04/19/24 08:46 Pantoprazole 40 Mg Tablet PO 05/15/24 08:59 40 mg QDAY ASHISH Administration Polyethylene Glycol 17 gm 04/15/24 09:20 Polyethylene Glycol 17 Gm Packet PO 05/14/24 08:59 QDAY PRN CONSTIPATION Protocol Sodium Chloride 3 ml 03/21/24 08:25 Sodium Chloride Rt Tia 0.9% 3 Ml Nebu INH 04/20/24 08:24 PRN PRN SOLN Valproic Acid 750 mg 04/03/24 09:00 04/19/24 08:45 Valproic Acid Syrup 250 Mg/5 Ml Udc PO 05/03/24 08:59 750 mg BID ASHISH Administration Plan 78-year-old female with a past medical history of hypothyroidism, hypertension, JACKIE, asthma, depression, dementia, recurrent UTI, and is status post hemicolectomy with ileostomy admitted for acute uremic encephalopathy, stage III acute kidney injury admitted sepsis secondary to UTI versus intra-abdominal abscess. Hyperkalemic protocol initiated with 5 units of insulin, D50 and sevelamer as well as albuterol on admission. Patient received emergent dialysis for worsening renal function and electrolyte abnormalities. #S/P Reverse ileostomy, post operative day 12 #Hx of Right colectomy with diverting ileostomy #Intra-abdominal fluid collection, possible abscess or infection #Reactive Leukocytosis, worsening Concern for patient as she is not getting up and moving Encouraging patient to ambulate WBC 13.8, 14 yesterday Pt is complaining of abd pain today ?Surgery on consult, appreciate recs ?Wound VAC ?Cardiac diet ?Tylenol as needed ?Physical therapy ?Continue wound care ?RD on consult, appreciate recs ?Encourage ambulation, PT on consult ?Discontinue Hickman ?Gabapentin 100 3 times daily ?Toradol 30 mg x 1 #Failure to thrive #Poor oral intake #Hypoglycemia Secondary to poor oral intake, and patient being on liquid diet Patient is very lethargic at this time, was given D50 x 1, will limit sedating medicines Patient's oral intake is poor with meals at this time, will need to add medicine for this but will not give Remeron as this is sedating Patient needs to ambulate as much as tolerated for improvement Pt's oral intake is improved with megace Plan: ?Megace 400 mL daily, ?Hypoglycemic protocol in place ?PT consult ?Up to chair with assistance ?D5/NS 100 cc/hour #Constipation-resolved Postsurgical constipation Resolved with Colace and MiraLAX -Will hold laxatives #MAKENZIE, stable Differential diagnosis: Prerenal versus possible ischemic ATN Patient might likely have prerenal MAKENZIE in the setting of poor oral intake. Patient has not been consuming 100% of meals. Creatinine 0.6 today ?Renally dose medicines ? Avoid nephrotoxic agents #Hypotension, resolved #Bradycardia, resolved #Hypothermia, resolved Patient was left ICU, was in there for 2 days for evaluation of hypothermia, bradycardia and hypotension which required pressor support (1) Bradycardia could have been attributed due to post op or medication side effect such as Ambien which she took before the symptoms started, however she has been taking Ambien for years Could be component of septic shock #Chronic insomnia Symptomatic currently, has not restarted home Ambien ?Holding Ambien in setting of bradycardia ?Gabapentin 200 mg 3 times daily #Electrolyte imbalances #Hyperphosphatemia-resolved #Hyperkalemia, resolved #Hypomagnesemia Urgent dialysis indicated on admission, patient had temporary catheter placement. Holding dialysis for now because renal function is improving Plan: ? Ore Buyer Dr. Rahman signing off given improved renal function ? Continue to monitor CMP #Normocytic anemia Hemoglobin has dropped from 11 to 8 status post ex lap, report says blood loss about 100 mL Anemia has improved back to baseline at 11 -CBC trend #Euosmolar hyponatremia, resolved Possible component of dehydration leading to hyponatremia due to poor oral intake. Hyponatremia is likely also contributed to GI losses through colostomy bag. On physical examination, patient had very dry mucous membranes and often does not consume full meals. Sodium 139 today #E.Coli UTI, improving #History of recurrent UTI Patient initially reported dysuria and cloudy urine with hx of recurrent UTIs. CT A/P 03/31: Fluid collection 5.4 x 4.0 x 2.2 cm in subcutaneous fatty tissue anterior pelvic wall, differentials include abcess and hematoma Repeat Blood culture, negative x2 final. Urine cultures positive for E. coli, pansensitive. -Completed 1 week course of doxycycline and IV Zosyn from 03/21-04/02) #New onset seizures #Complex partial seizures Suspicion of seizures marked by shakiness and blank staring. Teleneuro was consulted. CT head and CTA negative for any acute findings. Patient has been seizure free since New onset intermittent bilateral tremors noted. Patient denied any dizziness, headache, nausea, vomiting. New onset of seizures could be because patient stopped taking Depakote, is on 250 at home, takes Depakote for bipolar disorder -Neurologist Dr Brush consulted; suspected complex partial seizures and recommended doubling valproate dose in place of Keppra due to better side effect profile. -Valproate 750mg twice daily -Seizure precautions #History of hypothyroidism Patient has a history of hypothyroidism. She takes levothyroxine at home. ?Levothyroxine 175 mcg before breakfast #History of hypertension Chronic, uncontrolled Patient has a longstanding hypertension on both metoprolol and hydralazine. Plan ?Metoprolol tartrate 25mg BID ?Hydralazine 10mg Q6HR PRN for SBP >160 #History of depression #History of dementia #History of bipolar disorder #History of anxiety Patient takes valproate for bipolar, home dose 250 mg Patient experiencing anxiety currently, do not want to overly sedate patient Plan: ?Gabapentin 100 mg 3 times daily -Donepezil 10mg daily -Valproate 750mg BID #History of asthma Plan: ? DuoNebs every 4 hours breathing treatment as needed #Hypochloremia-resolved #Hypocalcemia-resolved #Hyperphosphatemia-resolved #Sepsis, resolved #Acute encephalopathy uremic vs infectious-resolved #Health Maintenance Disposition: Telemetry DVT prophylaxis: Heparin GI prophylaxis: Protonix Diet: Cardiac CODE STATUS: Full The patient's plan was discussed with attending Dr. Bermudez and senior resident Dr. Daniel Hinson, PGY-1
--- NOTE | 2024-04-19 14:47 | PC.SS ---
SEARCH ENGINEER notified by wound care nurse that patient will receive wound vac today. SEARCH ENGINEER updated resident to confirm patient medically cleared for discharge. Discharge order pending.
--- NOTE | 2024-04-19 15:27 | PD.RESDS ---
Planned Discharge Date 04/19/24 DS: Providers Provider Date of admission: 03/21/24 05:24 Primary care physician: Jorge Herndon MD Admitting Provider: Brennon Frazier MD Attending Provider on Admission: Brigette Bermudez MD Consults: 03/21/24 05:20 Consult to General Surgery Stat Comment: Consulting Provider: Adeline Flynn 03/21/24 08:29 Consult to Nephrology Stat Comment: Consulting Provider: Zhen Rahman 03/21/24 15:17 Referral Wound Care Routine Comment: 03/21/24 22:42 Referral [facility] Routine Comment: pt desires a visit from salvador for prayer Referral Registered Dietitian Routine Comment: 03/22/24 08:00 Referral Discharge Planning Stat Comment: op dialysis at dialysis 03/28/24 09:49 Consult to Neurology / Tele-Neurology Routine Comment: EEG read Consulting Provider: [facility] 03/28/24 12:49 Referral Physical Therapy Routine Comment: Physician Instructions: 03/30/24 14:38 Consult to Neurology / Tele-Neurology Routine Comment: Consulting Provider: Marcellus Brush 04/11/24 09:16 Consult to Cardiology Stat Comment: Consulting Provider: Сергей Jackson 04/13/24 10:28 Referral Physical Therapy Routine Comment: Physician Instructions: 04/16/24 10:30 Referral Physical Therapy Routine Comment: Physician Instructions: Attending Provider on DC: Brigette Bermudez MD Discharging Provider: Brigette Bermudez MD DS: Diagnosis Problem List Completed Was Problem List Reviewed/Reconciled?: Yes Hospital Course Hospital Course Hospital course: Roula Shell is a 78 yearold female with a past medical history of hypothyroidism, hypertension, JACKIE, asthma, depression, dementia, recurrent UTI, and is status post hemicolectomy with ileostomy who was admitted on 03/21/2024 for acute renal failure requiring dialysis, new onset seizures, diagnosis which required I&D, and reverse ileostomy. Patient had come to the ED for altered mental status and weakness. She had come to the ED with temperature of 95.7, heart rate of 96, blood pressure 142/57 on room air. She was worked up and was found to have a white blood count of 20.9, sodium 123, potassium 55, chloride of 88, bun of 121, creatinine of 1.1, phosphorus of 2.7, urinalysis showed 1551 white blood cells, 40 RBCs, bacteria and yeast present. CT abdomen pelvis showed some suspicious abscess of the lower quadrant, CT head was unremarkable. Patient on fluids, Rocephin and magnesium and patient was admitted to the floors after medicine was consulted. E coli treatment was begun. General surgery, Dr. Flynn, was consulted to evaluate possible abscess in the abdomen. Patient required hemodialysis before ending surgical intervention. Patient began to recover and was planning to get reverse ileostomy once patient's condition improved. Patient had a number of of rapid responses called on the floors. The first rapid response being 1 evaluation of seizure like activity, and had amantadine held for her. Next rapid was called which was an evaluation for hypotension, given fluids and general surgery was made note of this rapid due to the culprit possibly being the abscess in her abdomen. The last rapid was called was for evaluation of seizure-like activity, in which patient had antiepileptics (Keppra and Depakote) given to her with doses changed. Of note, patient had not been restarted immediately on her psychiatric medicines in which she takes for bipolar, which could have lowered the threshold for seizures. Neurology has been consulted with the recommendations as well. Patient had I&D of abdominal abscess on 04/01/2024 which had about 20 cc of pus drained, and patient tolerated procedure well. On 04/09/2024, patient had reverse ileostomy former Dr. Flynn, in which procedure was successful and patient had wound VAC placed. On 04/11/2024, patient was upgraded to ICU for evaluation of hypothermia, hypotension and bradycardia. Patient was given fluids and atropine prior to being upgraded to ICU, with minimal improvement with MAP. Of note, patient had developed the symptoms shortly after patient was restarted on home Ambien, which she has been taking. While in the ICU patient was started on pressure support. Once patient had improved, she was downgraded back to the floors in which patient was treated for pain, kidney injury and surgery recovery. Patient began to have regular bowel movements, improvement in kidney function and improvement in abdominal pain. Patient was then discharged to SNF with wound VAC in place with recommendations to follow-up outpatient and for recovery. Pt was held for a couple extra days due to some additional pain and elevation in WBC and Cr which had improved upon discharge. Prior to discharge, spoke with radiologist, Dr. Sprague, in regards to a fat mass seen in pelvis, and he has low concerns for pelvic abscess at this time. Ultrasound was done for patient, but study was limited due to bowel gas. Follow up with PCP within one week from discharge Follow up with the general surgeon within one week from discharge Follow up with neurologiest Dr Magaña within one week from discharge Follow up with wound care nurse instructions Use medications as prescribed In case of worsening of your symptoms please return to the ED as soon as possible #S/P Reverse ileostomy, #Hx of Right colectomy with diverting ileostomy #Abdominal abscess, s/p I&D #Reactive Leukocytosis, resolved #Constipation-resolved #Hypoglycemia, resolved #MAKENZIE, resolved #Acute renal failure, resolved #Hypotension, resolved #Bradycardia, resolved #Hypothermia, resolved #Chronic insomnia #Electrolyte imbalances #Hyperphosphatemia-resolved #Hyperkalemia, resolved #Hypomagnesemia #Normocytic anemia #Euosmolar hyponatremia, resolved #E.Coli UTI #History of recurrent UTI #New onset seizures #Complex partial seizures #History of hypothyroidism #History of hypertension #History of depression #History of dementia #History of bipolar disorder #History of anxiety #History of asthma #Hypochloremia-resolved #Hypocalcemia-resolved #Hyperphosphatemia-resolved #Sepsis, resolved #Acute encephalopathy uremic vs infectious-resolved Patient seen and care discussed with my senior resident, Dr. Sanchez, and my attending physician, Dr. Lara Hinson, PGY-1 Time Spent with Patient Time attestation: Total time spent providing and/or coordinating discharge services: Time spent: Greater than 30 minutes Home Health Home Health Referral Orders: 04/19/24 08:34 Home Health Referral Routine Reason For Exam: PT Home-Bound The patient must either because of illness or injury, need the aid of supportive devices such as crutches, canes, wheelchairs, and walkers; the use of special transportation; or the assistance of another person in order to leave their place of residence; OR have a condition such that leaving his or her home is medically contraindicated. In addition, the patient also meets the following criteria: patient is normally unable to leave the home and leaving home requires considerable taxing effort. Addendum to Home Health Certification Practitioner's Certification: I certify that the patient has been under my care in the hospital and the care of attending physician (see below). We had a xmtj-pu-[id number] encounter on (see date below). My clinical findings indicate that the patient is home bound per the above criteria and the Home Health Services noted in these orders are medically necessary. The primary reason for the gbtl-ba-mlhb encounter is related to the fact that the patient requires home health services. Date Certifying Bkps-ry-[id number] Physician Encounter: 03/21/24 Physician's Name who will Assume Oversight for HH Services: Physician No Primary/Family WATER/WASTEWATER PROJECT MANAGER - Community Resources: No PT to Evaluate: Yes PT to evaluate and provide a treatmnet plan to increase patient's mobility and strength. Wound Care: No IV Therapy: No RN Safety Evaluation: Yes RN to evaluate and create a plan of care that will produce positive outcomes. Palliative Treatment: No Palliative treatment and evaluate the need for hospice. Home Health Aide - Personal Care: No Home Health Aide to assist with any ADL's. 04/19/24 10:12 Home Health Referral Routine Reason For Exam: PT Home-Bound The patient must either because of illness or injury, need the aid of supportive devices such as crutches, canes, wheelchairs, and walkers; the use of special transportation; or the assistance of another person in order to leave their place of residence; OR have a condition such that leaving his or her home is medically contraindicated. In addition, the patient also meets the following criteria: patient is normally unable to leave the home and leaving home requires considerable taxing effort. Addendum to Home Health Certification Practitioner's Certification: I certify that the patient has been under my care in the hospital and the care of attending physician (see below). We had a mzes-rh-aqbg encounter on (see date below). My clinical findings indicate that the patient is home bound per the above criteria and the Home Health Services noted in these orders are medically necessary. The primary reason for the pzyu-qo-tlmp encounter is related to the fact that the patient requires home health services. Date Certifying Ibnp-lv-Qbjx Physician Encounter: 03/21/24 Physician's Name who will Assume Oversight for HH Services: Jorge MANCILLA) Physician's Phone No.who will Assume Oversight for Service: WATER/WASTEWATER PROJECT MANAGER - Community Resources: No PT to Evaluate: Yes PT to evaluate and provide a treatmnet plan to increase patient's mobility and strength. Wound Care: Yes Home Health RN - Wound Care Order: per wound nurse IV Therapy: No RN Safety Evaluation: Yes RN to evaluate and create a plan of care that will produce positive outcomes. Palliative Treatment: No Palliative treatment and evaluate the need for hospice. Home Health Aide - Personal Care: No Home Health Aide to assist with any ADL's. Exam Vital Signs Temp Pulse Resp BP Pulse Ox O2 Del Method O2 Flow Rate 97.2 F 88 18 151/87 H 95 Nasal Cannula 1 04/19/24 12:00 04/19/24 12:00 04/19/24 12:00 04/19/24 12:00 04/19/24 12:00 04/19/24 12:00 04/19/24 12:00 FiO2 90 04/19/24 07:55 Narrative Exam General: AAOx2 (not time), resting in bed, a bit lethargic HEENT: NCAT, PERRLA, EOMI, MMM, anicteric conjunctivae. Lungs: Clear MYRNA to auscultation and percussion, No accessory muscle use. Cardio: Normal S1/S2, regular rhythm, no murmurs, no JVD Abdomen: Soft, mild tenderness to palpation around wound VAC, no palpable masses, peristalsis present, no guarding or rebound. Wound VAC in place, but draining well, erythematous abdomen but improving Extremities: Symmetrical, no significant deformities, trace edema , non-tender, peripheral pulses presents. Neuro: AAOx2 (not time), patient was able to move all extremities. Psych: Cooperative Discharge Plan Plan Patient Disposition: Xfer Skilled Nsg Fac (SNF) Patient condition on transfer: Benefits outweigh risks Care Plan Goals: Follow up with PCP within one week from discharge Follow up with the general surgeon within one week from discharge Follow up with neurologiest Dr Magaña within one week from discharge Follow up with wound care nurse instructions Use medications as prescribed In case of worsening of your symptoms please return to the ED as soon as possible Prescriptions/Referrals Prescriptions/Med Rec: New pantoprazole 40 mg Tablet,Delayed Release (Dr/Ec) 40 mg PO QDAY 30 Days Qty: 30 0RF valproic acid (as sodium salt) 250 mg/5 mL (5 mL) Solution 750 mg PO BID 30 Days Qty: 900 2RF Continued nortriptyline 10 mg Capsule 10 mg PO DAILY divalproex [Depakote] 250 mg Tablet,Delayed Release (Dr/Ec) 250 mg PO DAILY montelukast 10 mg Tablet 10 mg PO DAILY ondansetron HCl 8 mg Tablet 8 mg PO Q6HR PRN (Reason: Nausea And Vomiting) levothyroxine 137 mcg tablet 137 mcg PO QDAY Patient Comments: take 1 tablet by mouth every morning ON AN EMPTY STOMACH metoprolol tartrate 25 mg tablet 25 mg PO BID Patient Comments: take 1 tablet by mouth twice a day atorvastatin 10 mg Tablet 10 mg PO QPM famotidine [Pepcid] 20 mg Tablet 20 mg PO Q12H hydroxyzine HCl 25 mg Tablet 25 mg PO Q12HR PRN (Reason: Anxiety) ergocalciferol (vitamin D2) [Vitamin D2] 1,250 mcg (50,000 unit) Capsule 1,250 mcg PO QOWEEK Changed oxycodone-acetaminophen [Percocet] 10-325 mg Tablet 10 - 325 tab PO Q6H 6 Days Qty: 24 0RF Discontinued donepezil 10 mg Tablet 10 mg PO DAILY memantine 10 mg Tablet 10 mg PO BID zolpidem [Ambien] 5 mg Tablet 5 mg PO HS valproic acid (as sodium salt) 250 mg/5 mL Solution 500 mg PO HS morphine 15 mg Tablet 15 mg PO Q12H PRN (Reason: Pain) Referrals: Adeline Flynn MD [Physician] - (You will receive a phone call to confirm a follow-up appt with me on Wednesday, May 08 at 930am) Yanick (PCP)Jorge MD [Primary Care Provider] - Patient/Caregiver Discharge Instructions Discharge Activity: as per physical therapy Other Discharge Activity Instructions:: Wound care: 1) Full thickness surgical wound to abdomen: irrigate with NS, pat dry, fill with black foam. Skin prep to wound edges, drape and trac pad at 125mmhg contionus suction. Change Wed, Wed, Wed and PRN for suction off greater than 2 hours (Last dressing change Wednesday04/19/24) IF unable to keep wound vac suction. Remove all wound vac dressing peices from wound bed, irrigate with normal saline. Pat dry with gauze. Moistened rolled gauze with normal saline and pack wound. Cover with dry gauze and secure with tape. Please inform home health if wound vac comes off. Education Materials: Abdomen Surg Dc, Nutrition for Wound Healing, Dehydration, Sepsis, Discharge Instructions Wound ..., Preventing Surgical Site Infections, Negative Pressure Wound Therapy, ED Seizure New Onset Unknown ... Print Language: Occitan Stand Alone Forms: Alison Award Info., Patient Portal Info Letter Discharge Order Discharge Orders: Discharge (Routine); Ordered 04/19/24 Ordered By: Familia Sanchez Quality Discharge Quality Measures VTE prophylaxis (Heparin) Attestestation Attestation 78-year-old female with multiple comorbidities including hypertension, hyperlipidemia, asthma not on home oxygen and cecal mass status post right hemicolectomy and diverting ileostomy on 12/20/2023 who presented to the ER on 03/21/2024 with chief complaint of altered mentation found to have acute uremic encephalopathy and intraoral abdominal abscesses subsequently started on IV antibiotic therapy and subsequently hemodialysis. Was initiated. During course of hospitalization, patient did receive multiple hemodialysis session and plan for reversing the ileostomy. As of now, continue to monitor closely. As for mentation, patient is alert and oriented to name, date of and place and kidney function improving without need for further hemodialysis. In addition, patient underwent reversal of ileostomy and currently has a wound VAC in place. Currenlty, patient is hemodynamically stable and plan to discharge patient to home with daughter. I reviewed above note and agree with findings and plans. I have also personally examined the patient with medicine team and went over assessment and plan with medical team including trestle mainternance laborer and resident physician.
--- NOTE | 2024-04-19 15:59 | PC.SS ---
VEGETABLE BUNCHER informed by wound care nurse that wound vac has not arrived.
[2024-04-19] MEDS: ACETAMINOPHEN 325 MG TABLET 650 MG PO (19:37)
[2024-04-19] MEDS: DONEPEZIL HCL 5 MG TABLET 10 MG PO (21:38)
[2024-04-20] VITALS: BP 158/90; PULSE 124; PULSE 125; RESP 17; TEMP 36.3; O2SAT 98
[2024-04-20 04:00] VITALS: BP 133/64; PULSE 91; PULSE 97; RESP 18; TEMP 36.3; O2SAT 95
[2024-04-20] MEDS: GABAPENTIN 100 MG CAPSULE PO ×3 (05:15→21:02)
[2024-04-20] MEDS: LEVOTHYROXINE SODIUM 125 MCG, LEVOTHYROXINE SODIUM 50 MCG 175 MCG PO (05:15)
[2024-04-20] MEDS: DEXTROSE 5%-NS 1,000 ML 100 ML IV (05:16)
--- NOTE | 2024-04-20 05:51 | PC.NURSE ---
pt transferred to med/surg floor from tele, room 357. report received from JEYSON Mckinley.
[2024-04-20 06:00] VITALS: BMI 30.4
[2024-04-20 08:00] VITALS: BP 145/71; PULSE 98; RESP 22; TEMP 36.6; O2SAT 92
--- NOTE | 2024-04-20 08:33 | PC.WOUND ---
Remedy wound vac at bedside, transition to S/N [id number] with good seal at 125mmgh, drape and trac pad replaced. Tolerated well. Spoke with Gisele BENÍTEZ, aware of discharge plan for today. When daughter at bedside will teach basic wound vac functions/alarms, ect.
[2024-04-20] MEDS: MEGESTROL ACET SUSP 400 MG/10 ML UDC PO (09:47)
[2024-04-20] MEDS: PANTOPRAZOLE 40 MG TABLET PO (09:47)
[2024-04-20] MEDS: HEPARIN SOD INJ 5000 UNIT/ML VIAL SC ×2 (09:47→20:43)
[2024-04-20] MEDS: ACETAMINOPHEN 325 MG TABLET 650 MG PO (09:47)
--- NOTE | 2024-04-20 09:49 | PC.SS ---
Addendum entered by JOLANTA Parra 04/20/24 10:10: Updated Dr. Gonzalez on what patient's daughter Sahra shared. Addendum entered by JOLANTA Parra 04/20/24 10:06: Spoke with patient's daughter, Sahra Shell via phone call. Provided her with an update and she informed she did not feel the patient would be ready for discharge today. Sahra voiced her concerns and informed if needed to she would appeal the hospital's discharge orders. Addendum entered by JOLANTA Parra 04/20/24 09:53: Attempted contact with patient's daughter, Sahra Shell. No answer and voicemail was provided. Original Note: SS update: spoke with our wound care nurse Ellen, who confirmed wound vac was delivered. Spoke with transfer nurseMelissa who informs no accepting home health agency at this time. Patient will require home health establishment prior to discharge for wound dressing changes.
--- NOTE | 2024-04-20 10:06 | PD.RESPRO ---
Documentation for date of: 04/20/24 Subjective Subjective Interval history: Patient was seen and examined at bedside this morning. Patient was complaining of pain this morning. Pain was mostly in the abdomen around wound VAC. HR has been in the 90's overnight Patient does not have any cardiac complaints at this time Potassium 4 and magnesium 1.9 no labs today, recommend to aggressively replete potassium magnesium to keep above 4 and 2 respectively Recommend to avoid any beta-blockers, calcium channel blockers, or any other rate controlling drugs given patient's sinus bradycardia. Patient's echo had the following findings: Normal LV size and function. Grade I diastolic dysfunction. Estimated EF 65-70% Normal RV size and function. Trace MR, PI, Mild TR. Mild AV sclerosis without stenosis Exam Vital Signs Temp Pulse Resp BP Pulse Ox O2 Del Method O2 Flow Rate 98 F 98 22 H 145/71 H 92 L Nasal Cannula 1 04/20/24 08:00 04/20/24 08:00 04/20/24 08:00 04/20/24 08:00 04/20/24 08:00 04/20/24 08:00 04/20/24 08:00 FiO2 90 04/19/24 07:55 Narrative Exam General: A/O x3, no acute distress Eyes: Patient's pupils are responsive to light. EOMI, patient grossly intact Ears: no visible ear discharge, Hearing grossly intact. Nose: No visible nasal discharge. Mouth/Throat: Dry mucous membranes, no redness, no lesions. Neck: Neck supple, non-tender, no cervical lymphadenopathy. Lungs: Clear MYRNA to auscultation and percussion, No accessory muscle use. Cardio: Normal S1/S2, regular rhythm, no murmurs, no JVD Abdomen: Soft, tenderness to palpation around wound VAC, no palpable masses, peristalsis present, no guarding or rebound. Wound VAC in place. Extremities: Symmetrical, no significant deformities, no peripheral edema , non-tender, peripheral pulses presents. Skin: No rashes, no lesions, warm to touch. Neuro: Patient was able to move all extremities. She was able to answer all questions. Objective Labs 04/19/24 04:40 04/19/24 04:40 Labs: Laboratory Results - last 24 hr 04/19/24 04:40 Neutrophils % (Manual) 61 Monocytes % (Manual) 10 H Eosinophils % (Manual) 2 Metamyelocytes % 1 H Myelocytes % 9 H Band Neutrophils 5 D Lymphocytes (Manual) 21 Atypical Lymphocytes 1+ ABG Interpretation ABG results: 03/21/24 05:40 ABG pH 7.35 ABG pCO2 41 ABG pO2 121 H ABG HCO3 23 ABG O2 Saturation 99 H ABG Base Excess -3 Quality Measures Quality Measures VTE prophylaxis (Heparin) Advance care planning discussed with:: patient Assessment & Plan Assessment Current Active Medications: Generic Name Dose Route Start Last Admin Trade Name Freq PRN Reason Stop Dose Admin Acetaminophen 650 mg 04/12/24 08:33 04/20/24 09:47 Acetaminophen 325 Mg Tablet PO 05/12/24 08:32 650 mg Q4HR PRN Administration Fever >101 and abdominal pain Dextrose 25 ml 04/14/24 11:20 Dextrose 50%-Water Inj 50 Ml Syringe IV 05/14/24 11:19 Q15MIN PRN BG 50-70 responsive npo pt Dextrose 50 ml 04/14/24 11:20 Dextrose 50%-Water Inj 50 Ml Syringe IV 05/14/24 11:19 Q15MIN PRN BG <50 OR BG <70 & pt unresponsive Docusate Sodium 100 mg 04/15/24 09:20 Docusate Sod 100 Mg Capsule PO 05/13/24 13:44 QDAY PRN CONSTIPATION Protocol Gabapentin 100 mg 04/16/24 14:00 04/20/24 05:15 Gabapentin 100 Mg Capsule PO 05/16/24 13:59 100 mg TID ASHISH Administration Glucagon 1 mg 04/14/24 11:20 Glucagon Inj 1 Mg Vial IM Q15MIN PRN BG <70, and no IV access Heparin Sodium (Porcine) 5,000 unit 04/12/24 21:00 04/20/24 09:47 Heparin Sod Inj 5000 Unit/Ml Vial SC 04/26/24 20:59 5,000 unit BID ASHISH Administration Hydralazine HCl 10 mg 03/21/24 15:45 Hydralazine Hcl 10 Mg Tablet PO 04/20/24 17:59 Q6HR PRN SBP>160 Albumin Human 25 gm in 100 mls @ 100 mls/min 03/21/24 10:54 Albuminar-25 Ivpb IV PRN PRN DIALYSIS Levothyroxine Sodium 125 mcg/ 175 mcg 04/13/24 06:00 04/20/24 05:15 Levothyroxine Sodium 50 mcg PO 05/13/24 05:59 175 mcg ACBR ASHISH Administration Lidocaine HCl 30 ml 04/15/24 12:38 Lidocaine Hcl 1% 20 Ml Vial INFL X1 PRN PIV insertion Megestrol Acetate 400 mg 04/18/24 11:00 04/20/24 09:47 Megestrol Acet Susp 400 Mg/10 Ml Udc PO 05/18/24 10:59 400 mg DAILY ASHISH Administration Pantoprazole Sodium 40 mg 04/15/24 09:00 04/20/24 09:47 Pantoprazole 40 Mg Tablet PO 05/15/24 08:59 40 mg QDAY ASHISH Administration Polyethylene Glycol 17 gm 04/15/24 09:20 Polyethylene Glycol 17 Gm Packet PO 05/14/24 08:59 QDAY PRN CONSTIPATION Protocol Valproic Acid 750 mg 04/03/24 09:00 04/19/24 21:38 Valproic Acid Syrup 250 Mg/5 Ml Udc PO 05/03/24 08:59 750 mg BID ASHISH Administration Plan 78-year-old female with past medical history of hypothyroidism, hypertension, JACKIE, asthma, depression, bipolar disorder, dementia, recurrent UTIs, and 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 1. Symptomatic sinus bradycardia - resolved 2. Intermittent Atrial Arrhythmias, A-fib vs Atrial tachycardia - resolved 3. Hypotension ? Sinus Bradycardia mostly likely vasovagal secondary to postop pain and nausea vs underlying sick sinus syndrome ? Patient's has atrial arrhythmias there is with evidence of significant frequent PACs. There was evidence of atrial arrhythmias which could be A-fib versus atrial tachycardia intermittently which are mostly sec to sepsis and electrolyte abnormalities. At this time patient is rate controlled. ? Patient has good chronotropic response ? EKG showed sinus bradycardia with first-degree AV block ? Prior EKG on 04/09/2024 showed sinus rhythm with a heart rate was 76 and no AV block. ? Patient is not on beta-blockers at this time given her bradycardia -Patient's echo had the following findings: Normal LV size and function. Grade I diastolic dysfunction. Estimated EF 65-70% Normal RV size and function. Trace MR, PI, Mild TR. Mild AV sclerosis without stenosis Plan: ? No rate control medications including CCB or Beta blockers due to hypotension and intermittent bradycardia. - All the intermittent atrial arrhythmias have resolved at the present point of time and no no further anticoagulation required as there were no arrhythmias and also patient has history of GI bleed. -Patient possibly has underlying sick sinus syndrome but her heart rate never went down below 55 bpm and now is 90s bpm. ? Recommend aggressive repletion of the potassium and magnesium, maintain above 4 and 2 respectively, to avoid any arrhythmias. ?Will continue to monitor patient's heart rate as she has been stable in the 90s overnight. 4. MAKENZIE 5. Acute uremic encephalopathy, resolved ?Patient initially came in with altered mental status and BUN of 121 with creatinine of 9.5. ? Patient's baseline creatinine was around 1 and BUN 27 on 02/16/2024 ?Recommend to follow-up with nephrology recommendations ?Continue current management as per primary care team 6. Sepsis secondary to UTI versus intra-abdominal abscess 7. E. coli UTI 8. Intra-abdominal abscess 9. 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 Patient had an I&D on 04/01/2024 by general surgery ? Patient had a ex lap with reversal ileostomy on 04/09/2024 by general surgery ?Recommend to continue current management as per primary care team 10. Normocytic normochromic anemia ?Patient's hemoglobin has been in the 8-9's prior to admission ? On admission patient's hemoglobin was 12.6, today 11.7 ? Could be due to blood loss from surgery versus hemodilutional versus GI bleed ? Recommend close monitoring and to transfuse if hemoglobin less than 7 11. Complex partial seizures, new onset ?Patient had an episode of shakiness and blank stare on 03/26/2024 ? EEG was normal and MRI was unrevealing ?Patient currently on valproic acid ? Recommend to follow neurology recommendations 12. Pseudohyponatremia, resolved ?Patient's initial sodium was 123 with osmolality of 286 ?Continue current management as per primary care team 13. Hx of hypothyroidism 14. Hx of asthma 15. Hx of depression 16. Hx of bipolar disorder 17. Hx of dementia 18. Hx of JACKIE ?Continue current management as per primary care team Continue rest of management as per primary team. We are grateful to be able to participate in Mrs. Shell's care. Thank you for the consult Plan of care discussed with attending Operations Manager/Coordinator, Dr. Manuel Arce MD PGY-1 Attending Provider Attestation/Addendum I have personally seen and examined the patient separately on the above date of service and discussed the plan of care with the resident. I reviewed the resident Dr. Dey consultation progress note and agree with the resident findings and plan in the note above and have also edited the documentation to reflect my findings and plan. Сергей Jackson M.D. Interventional Cardiology
[2024-04-20] MEDS: VALPROIC ACID SYRUP 250 MG/5 ML UDC 750 MG PO ×2 (10:20→20:42)
--- NOTE | 2024-04-20 11:34 | PC.CM ---
I am reaching out to [facility] to see who can follow patient.
[2024-04-20 12:00] VITALS: BP 137/84; PULSE 109; RESP 18; TEMP 36.3; O2SAT 97
--- NOTE | 2024-04-20 14:57 | PC.SS ---
Addendum entered by JOLANTA Parra 04/20/24 15:08: Updated patient's daughter, Sahra Shell. Original Note: SS update: patient is pending home health establishment with [facility], however the patient would not be able to be seen until Wednesday and unable to discharge until Wednesday as the patient requires frequent dressing changes for wound care. Updated Dr. Galvan on current status.
[2024-04-20 16:00] VITALS: BP 146/75; PULSE 100; PULSE 98; RESP 22; TEMP 36.3; O2SAT 100
--- NOTE | 2024-04-20 16:58 | PD.RESPRO ---
Documentation for date of: 04/20/24 Subjective Subjective Interval history: Patient seen today at the bedside. No acute overnight events. Says she is really tired and still having some abdominal pain. added norco for pain. Patient is discharged but pending some insurance thing. Will continue to monitor at this time. Exam Vital Signs Temp Pulse Resp BP Pulse Ox O2 Del Method O2 Flow Rate 97.4 F 109 H 18 137/84 H 97 Nasal Cannula 2 04/20/24 12:00 04/20/24 12:00 04/20/24 12:00 04/20/24 12:00 04/20/24 12:00 04/20/24 12:00 04/20/24 12:00 FiO2 90 04/19/24 07:55 Narrative Exam General: AAOx2 (not time), resting in bed, a bit lethargic HEENT: NCAT, PERRLA, EOMI, MMM, anicteric conjunctivae. Lungs: Clear MYRNA to auscultation and percussion, No accessory muscle use. Cardio: Normal S1/S2, regular rhythm, no murmurs, no JVD Abdomen: Soft, mild tenderness to palpation around wound VAC, no palpable masses, peristalsis present, no guarding or rebound. Wound VAC in place, but draining well, erythematous abdomen but improving Extremities: Symmetrical, no significant deformities, trace edema , non-tender, peripheral pulses presents. Neuro: AAOx2 (not time), patient was able to move all extremities. Psych: Cooperative Objective Labs 04/19/24 04:40 04/19/24 04:40 ABG Interpretation ABG results: 03/21/24 05:40 ABG pH 7.35 ABG pCO2 41 ABG pO2 121 H ABG HCO3 23 ABG O2 Saturation 99 H ABG Base Excess -3 Quality Measures Quality Measures VTE prophylaxis (Heparin) Advance care planning discussed with:: patient Assessment & Plan Assessment Current Active Medications: Generic Name Dose Route Start Last Admin Trade Name Freq PRN Reason Stop Dose Admin Acetaminophen 650 mg 04/20/24 16:15 Acetaminophen 325 Mg Tablet PO 05/12/24 08:32 Q6HR PRN Fever >101 and abdominal pain Hydrocodone Bitart/Acetaminophen 1 tab 04/20/24 16:14 Hydrocodone/Apap 5/325 Tablet PO 04/25/24 16:13 Q8HR PRN PAIN SCALE 5-10(Mod-Sev Dextrose 25 ml 04/14/24 11:20 Dextrose 50%-Water Inj 50 Ml Syringe IV 05/14/24 11:19 Q15MIN PRN BG 50-70 responsive npo pt Dextrose 50 ml 04/14/24 11:20 Dextrose 50%-Water Inj 50 Ml Syringe IV 05/14/24 11:19 Q15MIN PRN BG <50 OR BG <70 & pt unresponsive Docusate Sodium 100 mg 04/15/24 09:20 Docusate Sod 100 Mg Capsule PO 05/13/24 13:44 QDAY PRN CONSTIPATION Protocol Gabapentin 100 mg 04/16/24 14:00 04/20/24 14:26 Gabapentin 100 Mg Capsule PO 05/16/24 13:59 100 mg TID ASHISH Administration Glucagon 1 mg 04/14/24 11:20 Glucagon Inj 1 Mg Vial IM Q15MIN PRN BG <70, and no IV access Heparin Sodium (Porcine) 5,000 unit 04/12/24 21:00 04/20/24 09:47 Heparin Sod Inj 5000 Unit/Ml Vial SC 04/26/24 20:59 5,000 unit BID ASHISH Administration Hydralazine HCl 10 mg 03/21/24 15:45 Hydralazine Hcl 10 Mg Tablet PO 04/20/24 17:59 Q6HR PRN SBP>160 Levothyroxine Sodium 125 mcg/ 175 mcg 04/13/24 06:00 04/20/24 05:15 Levothyroxine Sodium 50 mcg PO 05/13/24 05:59 175 mcg ACBR ASHISH Administration Lidocaine HCl 30 ml 04/15/24 12:38 Lidocaine Hcl 1% 20 Ml Vial INFL X1 PRN PIV insertion Megestrol Acetate 400 mg 04/18/24 11:00 04/20/24 09:47 Megestrol Acet Susp 400 Mg/10 Ml Udc PO 05/18/24 10:59 400 mg DAILY ASHISH Administration Pantoprazole Sodium 40 mg 04/15/24 09:00 04/20/24 09:47 Pantoprazole 40 Mg Tablet PO 05/15/24 08:59 40 mg QDAY ASHISH Administration Polyethylene Glycol 17 gm 04/15/24 09:20 Polyethylene Glycol 17 Gm Packet PO 05/14/24 08:59 QDAY PRN CONSTIPATION Protocol Valproic Acid 750 mg 04/03/24 09:00 04/20/24 10:20 Valproic Acid Syrup 250 Mg/5 Ml Udc PO 05/03/24 08:59 750 mg BID ASHISH Administration Plan 78-year-old female with a past medical history of hypothyroidism, hypertension, JACKIE, asthma, depression, dementia, recurrent UTI, and is status post hemicolectomy with ileostomy admitted for acute uremic encephalopathy, stage III acute kidney injury admitted sepsis secondary to UTI versus intra-abdominal abscess. Hyperkalemic protocol initiated with 5 units of insulin, D50 and sevelamer as well as albuterol on admission. Patient received emergent dialysis for worsening renal function and electrolyte abnormalities. #S/P Reverse ileostomy, post operative day 12 #Hx of Right colectomy with diverting ileostomy #Intra-abdominal fluid collection, possible abscess or infection #Reactive Leukocytosis, worsening Concern for patient as she is not getting up and moving Encouraging patient to ambulate Pt was to be getting discharged yesterday, but due to insurance issues, pt stayed WBC 14 ?Surgery on consult, appreciate recs ?Wound VAC ?Cardiac diet ?Tylenol as needed ?Physical therapy ?Continue wound care ?RD on consult, appreciate recs ?Encourage ambulation, PT on consult ?Discontinue [place] ?Gabapentin 100 3 times daily - added norco for pain #Failure to thrive #Poor oral intake #Hypoglycemia Secondary to poor oral intake, and patient being on liquid diet Patient is very lethargic at this time, was given D50 x 1, will limit sedating medicines Patient's oral intake is poor with meals at this time, will need to add medicine for this but will not give Remeron as this is sedating Patient needs to ambulate as much as tolerated for improvement ?Megace 400 mL daily, ?Hypoglycemic protocol in place ?PT consult ?Up to chair with assistance ?NS 100 cc/hour #Constipation-resolved Postsurgical constipation Resolved with Colace and MiraLAX -Will hold laxatives #MAKENZIE, stable Differential diagnosis: Prerenal versus possible ischemic ATN Patient might likely have prerenal MAKENZIE in the setting of poor oral intake. Patient has not been consuming 100% of meals. Creatinine 1 today ?Renally dose medicines ? Avoid nephrotoxic agents #Hypotension, resolved #Bradycardia, resolved #Hypothermia, resolved Patient was left ICU, was in there for 2 days for evaluation of hypothermia, bradycardia and hypotension which required pressor support (1) Bradycardia could have been attributed due to post op or medication side effect such as Ambien which she took before the symptoms started, however she has been taking Ambien for years Could be component of septic shock #Chronic insomnia Symptomatic currently, has not restarted home Ambien ?Holding Ambien in setting of bradycardia ?Gabapentin 200 mg 3 times daily #Electrolyte imbalances #Hyperphosphatemia-resolved #Hyperkalemia, resolved #Hypomagnesemia Urgent dialysis indicated on admission, patient had temporary catheter placement. Holding dialysis for now because renal function is improving Plan: ? Rn Access Dr. Rahman signing off given improved renal function ? Continue to monitor CMP #Normocytic anemia Hemoglobin has dropped from 11 to 8 status post ex lap, report says blood loss about 100 mL Anemia has improved back to baseline at 11 -CBC trend #Euosmolar hyponatremia, resolved Possible component of dehydration leading to hyponatremia due to poor oral intake. Hyponatremia is likely also contributed to GI losses through colostomy bag. On physical examination, patient had very dry mucous membranes and often does not consume full meals. Sodium 139 today #E.Coli UTI, improving #History of recurrent UTI Patient initially reported dysuria and cloudy urine with hx of recurrent UTIs. CT A/P 03/31: Fluid collection 5.4 x 4.0 x 2.2 cm in subcutaneous fatty tissue anterior pelvic wall, differentials include abcess and hematoma Repeat Blood culture, negative x2 final. Urine cultures positive for E. coli, pansensitive. -Completed 1 week course of doxycycline and IV Zosyn from 03/21-04/02) #New onset seizures #Complex partial seizures Suspicion of seizures marked by shakiness and blank staring. Teleneuro was consulted. CT head and CTA negative for any acute findings. Patient has been seizure free since New onset intermittent bilateral tremors noted. Patient denied any dizziness, headache, nausea, vomiting. New onset of seizures could be because patient stopped taking Depakote, is on 250 at home, takes Depakote for bipolar disorder -Neurologist Dr Brush consulted; suspected complex partial seizures and recommended doubling valproate dose in place of Keppra due to better side effect profile. -Valproate 750mg twice daily -Seizure precautions #History of hypothyroidism Patient has a history of hypothyroidism. She takes levothyroxine at home. ?Levothyroxine 175 mcg before breakfast #History of hypertension Chronic, uncontrolled Patient has a longstanding hypertension on both metoprolol and hydralazine. ?Metoprolol tartrate 25mg BID ?Hydralazine 10mg Q6HR PRN for SBP >160 #History of depression #History of dementia #History of bipolar disorder #History of anxiety Patient takes valproate for bipolar, home dose 250 mg Patient experiencing anxiety currently, do not want to overly sedate patient ?Gabapentin 200 mg 3 times daily -Donepezil 10mg daily -Valproate 750mg BID #History of asthma ? DuoNebs every 4 hours breathing treatment as needed #Hypochloremia-resolved #Hypocalcemia-resolved #Hyperphosphatemia-resolved #Sepsis, resolved #Acute encephalopathy uremic vs infectious-resolved Case discussed with my senior Dr. Gonzalez PGY-[address] Lara Chandra MD PGY-1 Disposition: Telemetry DVT prophylaxis: Heparin GI prophylaxis: Protonix Diet: Cardiac CODE STATUS: Full Senior resident attestation: Patient evaluated and examined at the bedside, plan of care discussed with rest of the team including my attending physician, except as noted. 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 Was initiated. During course of hospitalization, patient did receive multiple hemodialysis session and plan for reversing the ileostomy. As of now, continue to monitor closely. As for mentation, patient is alert and oriented to name, date of and place and kidney function improving without need for further hemodialysis. In addition, patient underwent reversal of ileostomy and currently has a wound VAC in place. Currenlty, patient is hemodynamically stable and plan to discharge patient to home with daughter. Kept overnight as patient and family appealed discharge. I reviewed above note and agree with findings and plans. I have also personally examined the patient with medicine team and went over assessment and plan with medical team including international project manager and resident physician.
[2024-04-20 20:00] VITALS: BP 134/65; PULSE 83; PULSE 95; RESP 28; TEMP 36.9; O2SAT 100
[2024-04-21] VITALS (9 sets, daily range): BP systolic 106–133; BP diastolic 59–85; PULSE 83–139; RESP 17–22; TEMP 36.3–36.9; O2SAT 96–98
[2024-04-21] MEDS: HYDROcodone/APAP 5/325 TABLET 1 TAB PO ×2 (04:30→13:03)
[2024-04-21] MEDS: GABAPENTIN 100 MG CAPSULE PO ×3 (05:09→22:24)
[2024-04-21] MEDS: LEVOTHYROXINE SODIUM 125 MCG, LEVOTHYROXINE SODIUM 50 MCG 175 MCG PO (05:09)
[2024-04-21] MEDS: HEPARIN SOD INJ 5000 UNIT/ML VIAL SC ×2 (08:43→22:30)
[2024-04-21] MEDS: PANTOPRAZOLE 40 MG TABLET PO (08:44)
[2024-04-21] MEDS: VALPROIC ACID SYRUP 250 MG/5 ML UDC 750 MG PO ×2 (08:44→22:25)
[2024-04-21] MEDS: MEGESTROL ACET SUSP 400 MG/10 ML UDC PO (08:44)
--- NOTE | 2024-04-21 10:03 | PC.SS ---
Addendum entered by JOLANTA Parra 04/21/24 14:24: Patient's daughter Sahra Shell informed she contacted [employer] and spoke with caseworker Isaak who informed her no denial letter was sent on their end. Case number provided: [id number] for reference. Original Note: 925 Received a call from Laquita with [employer], she informed they would be faxing a denial letter for patient's hospital stay dated with yesterdays date 04/20/24. 948 Contacted transfer nurse Remy, who informed that [facility] health was booked for the patient, however no start of care date confirmed yet. 951 Contacted Laquita at [employer], to make aware of what Remy informed and she stated a denial letter would still be sent out. 957 Contacted patient's daughter Sahra Shell to make aware of denial letter being sent by insurance carrier. She was upset and verbalized understanding.
--- NOTE | 2024-04-21 10:30 | PC.WOUND ---
Made aware from Delaney S/S, plan for discharge home today with home health to see pt Monday 04/23. Plan for wound vac dressing change today prior to discharge. Received v/m from daughter Sahra. Returned call. Reviewed discharge plan, verbally reviewed basic wound vac functions, canister changing, clamps, showering, dressing supplies in tote with visual handouts/handbook. S/s of infection to follow up with Dr. Flynn or return to ED. Importance of turning/repositioning, increasing mobilization and oral liquid/food intake. All questions/concerns addressed. Dressing change planned after next pain rx dose available.
--- NOTE | 2024-04-21 10:55 | PD.HHPROG ---
Documentation for date of: 04/21/24 Subjective - Hospitalist Subjective Interval history: No acute events overnight. Patient and family appealed discharge and awaiting results of the appeal. On diet and wound vac in place. Review of Systems Review of Systems Narrative Review of Systems: General: Denies fevers or chills. Abdomen: Denies diarrhea, constipation, bright red blood per rectum or melena. Neurology: Denies any changes in vision, weakness or difficulty speaking. The rest of review of system is otherwise negative except what is mentioned above Exam Vital Signs Temp Pulse Resp BP Pulse Ox O2 Del Method O2 Flow Rate 97.6 F 112 H 21 H 130/59 L 98 Nasal Cannula 2 04/21/24 08:00 04/21/24 08:00 04/21/24 08:00 04/21/24 08:00 04/21/24 08:00 04/21/24 08:00 04/21/24 08:00 FiO2 90 04/19/24 07:55 Narrative Physical Exam: General: Alert and oriented to name, date of and place HEENT: Normocephalic, atraumatic Cardiac: Regular rate and rhythm, no murmurs Lungs: Clear to auscultation with no wheezing or crackles Abdomen: Wound vac in place. Surgical site appears to be healing well. Neurology: Cranial nerves II to XII intact and patient able to move all 4 extremities. Skin: No rash or edema. 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 Was initiated. During course of hospitalization, patient did receive multiple hemodialysis session and plan for reversing the ileostomy. As of now, continue to monitor closely. As for mentation, patient is alert and oriented to name, date of and place and kidney function improving without need for further hemodialysis. In addition, patient underwent reversal of ileostomy and currently has a wound VAC in place. 1. Cecal mass status post right colectomy with diverting ileostomy status post reversal ? Wound VAC in place ? Awaiting home health and appreciate general surgery input ? Patient was discharged and pending home arrangements for home health 2. Acute kidney injury ? Resolved 3. Poor oral intake ? On Megace for all ? Encourage increased p.o. intake 4. Seizure disorder ? Continue valproic acid 750 mg twice daily 5. Hypertension ? Continue metoprolol 25 mg twice daily 6. Bipolar disorder ? Continue valproic acid 730 mg twice daily and gabapentin 7. Hypothyroidism ? Continue levothyroxine Healthcare Maintenance: DVT prophylaxis: Bilateral SCDs, no chemical prophylaxis given anemia GI prophylaxis: Protonix 40 mg twice daily Diet: Cardiac diet Lines: PIV CODE STATUS: Full code Reason for hospitalization: Patient was discharged 2 days ago however patient and family appealed and awaiting decision. Time Spent with Patient Time: Total time spent is greater than 50% in coordination of care (as documented) at patient's floor/unit and/or counseling patient: Time with patient: Greater than 35 minutes Reason for Continued Stay Reason for continued stay: further monitoring Quality Measures Quality Measures VTE prophylaxis (Heparin) Advance care planning discussed with:: patient
--- NOTE | 2024-04-21 11:14 | ESDS_ITS ---
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 Was initiated. During course of hospitalization, patient did receive multiple hemodialysis session and plan for reversing the ileostomy. As of now, continue to monitor closely. As for mentation, patient is alert and oriented to name, date of and place and kidney function improving without need for further hemodialysis. In addition, patient underwent reversal of ileostomy and currently has a wound VAC in place. Currently, patient hemodynamically stable, cleared by general surgery for discharge and plan to discharge the patient has home health has been arranged an d family and patient discontinued the appeal process. Physical Exam: General: Alert and oriented to name, date of and place HEENT: Normocephalic, atraumatic Cardiac: Regular rate and rhythm, no murmurs Lungs: Clear to auscultation with no wheezing or crackles Abdomen: Wound vac in place. Surgical site appears to be healing well. Neurology: Cranial nerves II to XII intact and patient able to move all 4 extremities. Skin: No rash or edema. Assessment and Plan: 1. Cecal mass status post right colectomy with diverting ileostomy status post reversal ? Wound VAC in place ? Awaiting home health and appreciate general surgery input ?Home health arranged at home with plan to discharge the patient ? Patient was given ER precaution was told that if she was to have any fevers, increase abdominal drainage to call 911 or present to the nearest ER. All of her questions were answered and patient family verbalized understanding. 2. Acute kidney injury ? Resolved 3. Poor oral intake ? On Megace for all ? Encourage increased p.o. intake 4. Seizure disorder ? Continue valproic acid 750 mg twice daily 5. Hypertension ? Continue metoprolol 25 mg twice daily 6. Bipolar disorder ? Continue valproic acid 730 mg twice daily and gabapentin 7. Hypothyroidism ? Continue levothyroxine 8. Leukocytosis ? Likely reactive ? No evidence of fever ? Prior to discharge, spoke with radiologist, Dr. Sprague, in regards to a fat mass seen in pelvis, and he has low concerns for pelvic abscess at this time. Ultrasound was done for patient, but study was limited due to bowel gas. - WBC this morning 13.8 Recommendations: Follow up with PCP within one week from discharge Follow up with the general surgeon within one week from discharge Follow up with neurologiest Dr Magaña within one week from discharge Follow up with wound care nurse instructions Use medications as prescribed In case of worsening of your symptoms please return to the ED as soon as possible
--- NOTE | 2024-04-21 11:26 | PC.SS ---
Addendum entered by JOLANTA Parra 04/21/24 12:12: Updated bed side nurse Janice and provided voicemail to patient's daughter, Sahra Shell. Addendum entered by JOLANTA Parra 04/21/24 12:10: [facility] transport ETA 6pm. Original Note: Home health start of care date for patient is 04/23/24 with [facility]. Patient's daughter, Sahra Shell is aware and agreeable with the patient discharging home today after 5pm as she will not be home until then. Sahra is requesting transport for the patient to return home and states she is unable to cover transport fee. HOPE obtained from charge nurse Lakesha. Bed side nurse, transfer nurse, wound care nurse and attending Dr. Bermudez aware of discharge plan for today.
[2024-04-21] MEDS: METOPROLOL TARTRATE 25 MG TABLET PO ×2 (11:58→22:24)
--- NOTE | 2024-04-21 14:22 | PC.SS ---
SS update: attending informs he discontinued discharge orders. Transfer nurse aware. Updated patient's daughter Sahra Shell. Cancelled transportation with [facility].
--- NOTE | 2024-04-21 16:06 | ESPR_ITS ---
Documentation for date of: 04/21/24 Subjective Subjective Interval history: Patient was seen and examined at bedside No new cardiac in place. Heart rate continues to be stable between 70 to 90 bpm Recommend to aggressively replete potassium magnesium to keep above 4 and 2 respectively Recommend to avoid any beta-blockers, calcium channel blockers, or any other rate controlling drugs given patient's sinus bradycardia. Patient's echo had the following findings: Normal LV size and function. Grade I diastolic dysfunction. Estimated EF 65-70% Normal RV size and function. Trace MR, PI, Mild TR. Mild AV sclerosis without stenosis Exam Vital Signs Temp Pulse Resp BP Pulse Ox O2 Del Method O2 Flow Rate 97.4 F 90 20 133/63 H 96 Nasal Cannula 2 04/21/24 12:00 04/21/24 12:00 04/21/24 12:04/21/24 12:00 04/21/24 12:00 04/21/24 12:00 04/21/24 12:00 FiO2 90 04/19/24 07:55 Narrative Exam General: A/O x3, no acute distress Eyes: Patient's pupils are responsive to light. EOMI, patient grossly intact Ears: no visible ear discharge, Hearing grossly intact. Nose: No visible nasal discharge. Mouth/Throat: Dry mucous membranes, no redness, no lesions. Neck: Neck supple, non-tender, no cervical lymphadenopathy. Lungs: Clear MYRNA to auscultation and percussion, No accessory muscle use. Cardio: Normal S1/S2, regular rhythm, no murmurs, no JVD Abdomen: Soft, tenderness to palpation around wound VAC, no palpable masses, peristalsis present, no guarding or rebound. Wound VAC in place. Extremities: Symmetrical, no significant deformities, no peripheral edema , non- tender, peripheral pulses presents. Skin: No rashes, no lesions, warm to touch. Neuro: Patient was able to move all extremities. She was able to answer all questions. Objective Labs 04/21/24 16:23 04/21/24 16:23 ABG Interpretation ABG results: 03/21/24 05:40 ABG pH 7.35 ABG pCO2 41 ABG pO2 121 H ABG HCO3 23 ABG O2 Saturation 99 H ABG Base Excess -3 Assessment & Plan A&P Narrative 78-year-old female with past medical history of hypothyroidism, hypertension, JACKIE, asthma, depression, bipolar disorder, dementia, recurrent UTIs, and 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 1. Symptomatic sinus bradycardia - resolved 2. Intermittent Atrial Arrhythmias, A-fib vs Atrial tachycardia - resolved 3. Hypotension ? Sinus Bradycardia mostly likely vasovagal secondary to postop pain and nausea vs underlying sick sinus syndrome ? Patient's has atrial arrhythmias there is with evidence of significant frequent PACs. There was evidence of atrial arrhythmias which could be A-fib versus atrial tachycardia intermittently which are mostly sec to sepsis and electrolyte abnormalities. At this time patient is rate controlled. ? Patient has good chronotropic response ? EKG showed sinus bradycardia with first-degree AV block ? Prior EKG on 04/09/2024 showed sinus rhythm with a heart rate was 76 and no AV block. ? Patient is not on beta-blockers at this time given her bradycardia -Patient's echo had the following findings: Normal LV size and function. Grade I diastolic dysfunction. Estimated EF 65-70% Normal RV size and function. Trace MR, PI, Mild TR. Mild AV sclerosis without stenosis Plan: ? No rate control medications including CCB or Beta blockers due to hypotension and intermittent bradycardia. - All the intermittent atrial arrhythmias have resolved at the present point of time and no no further anticoagulation required as there were no arrhythmias and also patient has history of GI bleed. -Patient possibly has underlying sick sinus syndrome but her heart rate never went down below 55 bpm and now is 90s bpm. ? Recommend aggressive repletion of the potassium and magnesium, maintain above 4 and 2 respectively, to avoid any arrhythmias. ?Will continue to monitor patient's heart rate as she has been stable in the 90s overnight. 4. MAKENZIE 5. Acute uremic encephalopathy, resolved ?Patient initially came in with altered mental status and BUN of 121 with creatinine of 9.5. ? Patient's baseline creatinine was around 1 and BUN 27 on 02/16/2024 ?Recommend to follow-up with nephrology recommendations ?Continue current management as per primary care team 6. Sepsis secondary to UTI versus intra-abdominal abscess 7. E. coli UTI 8. Intra-abdominal abscess 9. 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 Patient had an I&D on 04/01/2024 by general surgery ? Patient had a ex lap with reversal ileostomy on 04/09/2024 by general surgery ?Recommend to continue current management as per primary care team 10. Normocytic normochromic anemia ?Patient's hemoglobin has been in the 8-9's prior to admission ? On admission patient's hemoglobin was 12.6, today 11.7 ? Could be due to blood loss from surgery versus hemodilutional versus GI bleed ? Recommend close monitoring and to transfuse if hemoglobin less than 7 11. Complex partial seizures, new onset ?Patient had an episode of shakiness and blank stare on 03/26/2024 ? EEG was normal and MRI was unrevealing ?Patient currently on valproic acid ? Recommend to follow neurology recommendations 12. Pseudohyponatremia, resolved ?Patient's initial sodium was 123 with osmolality of 286 ?Continue current management as per primary care team 13. Hx of hypothyroidism 14. Hx of asthma 15. Hx of depression 16. Hx of bipolar disorder 17. Hx of dementia 18. Hx of JACKIE ?Continue current management as per primary care team Management of rest of the medical conditions as per primary team and other consultants. Thank you for the consult and allowing me to participate in the care of the patient. Cardiology will continue to follow. Сергей Jackson M.D. Interventional Cardiology Time Spent With Patient Time: Total time spent is greater than 50% in coordination of care (as documented) at patient's floor/unit and/or counseling patient:
[2024-04-21 16:31] LABS: Basophils # (Auto) 0.1 Thou/mm3 (0.0-0.2); Basophils % (Auto) 1 % (0-2.5); Eosinophils # (Auto) 0.3 Thou/mm3 (0.0-0.5); Eosinophils % (Auto) 2 % (0-10); Hematocrit 31.6 % (36.0-46.0); Hemoglobin 10.4 g/dL (12.0-16.0); Immature Granulocytes % (Auto) 9 % (0-0); Immature Granulocytes Auto 1.65 Thou/mm3 (0.00-0.00); Lymphocytes # (Auto) 2.8 Thou/mm3 (1.0-4.8); Lymphocytes % (Auto) 16 % (10-50); Mean Corpuscular HGB Conc 32.9 g/dl (31.0-37.0); Mean Corpuscular Hemoglobin 28.3 pg (25.0-35.0); Mean Corpuscular Volume 86 fL (80-100); Monocytes # (Auto) 1.7 Thou/mm3 (0.0-0.8); Monocytes % (Auto) 9 % (0-12); Neutrophils # (Auto) 11.4 Thou/mm3 (1.8-7.7); Neutrophils % (Auto) 64 % (37-80); Nucleated Red Blood Cell % 0 /100 WBC (0); Platelet Count 198 Thou/mm3 (140-440); RDW Standard Deviation 51.5 fL (36.4-46.3); Red Blood Count 3.67 Miln/mm3 (4.00-5.20); White Blood Count 17.9 Thou/mm3 (3.6-11.0)
[2024-04-21 17:17] LABS: Alanine Aminotransferase 8 U/L (10-49); Albumin, Serum 2.1 gm/dL (3.4-4.8); Albumin/Globulin Ratio 0.9 (1.2-2.2); Alkaline Phosphatase 338 U/L (46-116); Anion Gap 3 (7-16); Aspartate Amino Transferase < 8 U/L (0-34); BUN/Creatinine Ratio 20 Ratio (12-20); Bilirubin,Total 0.2 mg/dL (0.3-1.2); Blood Urea Nitrogen 12 mg/dL (9-23); Calcium 7.2 mg/dL (8.3-10.6); Calcium (Corrected) 8.7 mg/dL (8.5-10.1); Carbon Dioxide 24.2 mMol/L (20.0-31.0); Chloride 105 mMol/L (98-107); Creatinine (Component) 0.6 mg/dL (0.6-1.3); Estimated Creatinine Clearance 79.6 mL/min (>60); Globulin 2.4 gm/dL (2.3-3.5); Glucose 88 mg/dL (74-106); Magnesium 1.3 mg/dL (1.6-2.6); Osmolality,Calculated 263 (275-295); Phosphorous 2.2 mg/dL (2.4-5.1); Potassium 4.4 mMol/L (3.4-5.1); Sodium 132 mMol/L (136-145); Total Protein 4.5 gm/dL (5.7-8.2); eGFR > 60 See Note
[2024-04-22] VITALS (9 sets, daily range): BP systolic 105–138; BP diastolic 50–67; PULSE 64–94; RESP 18–24; TEMP 36.3–36.8; O2SAT 93–95; BMI 31.4; BMI 12.0
[2024-04-22] MEDS: HYDROcodone/APAP 5/325 TABLET 1 TAB PO ×3 (00:12→16:24)
[2024-04-22] MEDS: LEVOTHYROXINE SODIUM 125 MCG, LEVOTHYROXINE SODIUM 50 MCG 175 MCG PO (05:43)
[2024-04-22] MEDS: GABAPENTIN 100 MG CAPSULE PO ×3 (05:44→20:24)
[2024-04-22] MEDS: MEGESTROL ACET SUSP 400 MG/10 ML UDC PO (08:13)
[2024-04-22] MEDS: METOPROLOL TARTRATE 25 MG TABLET PO ×2 (08:13→20:24)
[2024-04-22] MEDS: VALPROIC ACID SYRUP 250 MG/5 ML UDC 750 MG PO ×2 (08:13→20:23)
[2024-04-22] MEDS: PANTOPRAZOLE 40 MG TABLET PO (08:13)
[2024-04-22] MEDS: HEPARIN SOD INJ 5000 UNIT/ML VIAL SC ×2 (08:14→20:24)
--- NOTE | 2024-04-22 10:06 | PD.RESPRO ---
Documentation for date of: 04/22/24 Subjective Subjective Interval history: Patient seen and examined at bedside this morning. No overnight events. Patient does not have any cardiac in place at this time. Patient's heart rate has been in the 70s overnight. No new labs for today. Recommend to replete potassium magnesium to keep above 4 and 2 respectively. Patient's echo had the following findings: Normal LV size and function. Grade I diastolic dysfunction. Estimated EF 65-70% Normal RV size and function. Trace MR, PI, Mild TR. Mild AV sclerosis without stenosis Cardiology will sign off, please reach out with any questions. Exam Vital Signs Temp Pulse Resp BP Pulse Ox O2 Del Method O2 Flow Rate 97.4 F 72 18 123/53 L 95 Room Air 2 04/22/24 07:46 04/22/24 08:13 04/22/24 07:46 04/22/24 08:13 04/22/24 07:46 04/22/24 07:46 04/21/24 12:00 FiO2 90 04/19/24 07:55 Narrative Exam General: A/O x3, no acute distress Eyes: Patient's pupils are responsive to light. EOMI, patient grossly intact Ears: no visible ear discharge, Hearing grossly intact. Nose: No visible nasal discharge. Mouth/Throat: Dry mucous membranes, no redness, no lesions. Neck: Neck supple, non-tender, no cervical lymphadenopathy. Lungs: Clear MYRNA to auscultation and percussion, No accessory muscle use. Cardio: Normal S1/S2, regular rhythm, no murmurs, no JVD Abdomen: Soft, tenderness to palpation around wound VAC, no palpable masses, peristalsis present, no guarding or rebound. Wound VAC in place. Extremities: Symmetrical, no significant deformities, no peripheral edema , non-tender, peripheral pulses presents. Skin: No rashes, no lesions, warm to touch. Neuro: Patient was able to move all extremities. She was able to answer all questions. Objective Labs 04/22/24 14:12 04/22/24 14:12 Labs: Laboratory Results - last 24 hr 04/21/24 16:23 WBC 17.9 H RBC 3.67 L Hgb 10.4 L Hct 31.6 L MCV 86 MCH 28.3 MCHC 32.9 RDW Std Deviation 51.5 H Plt Count 198 Neut % (Auto) 64 Lymph % (Auto) 16 [place] % (Auto) 9 Eos % (Auto) 2 Baso % (Auto) 1 Neut # (Auto) 11.4 H Lymph # (Auto) 2.8 [place] # (Auto) 1.7 H Eos # (Auto) 0.3 Baso # (Auto) 0.1 Immature Gran # (Auto) 1.65 H Absolute Nucleated RBC 0.00 Immature Gran % 9 H Nucleated RBC % 0 Sodium 132 L Potassium 4.4 Chloride 105 Carbon Dioxide 24.2 Anion Gap 3 L BUN 12 Creatinine 0.6 Estim Creat Clear Calc 79.6 eGFR > 60 BUN/Creatinine Ratio 20 Glucose 88 Calculated Osmolality 263 L Calcium 7.2 L Corrected Calcium 8.7 Phosphorus 2.2 L Magnesium 1.3 L Total Bilirubin 0.2 L AST < 8 ALT 8 L Alkaline Phosphatase 338 H D Total Protein 4.5 L Albumin 2.1 L Globulin 2.4 Albumin/Globulin Ratio 0.9 L ABG Interpretation ABG results: 03/21/24 05:40 ABG pH 7.35 ABG pCO2 41 ABG pO2 121 H ABG HCO3 23 ABG O2 Saturation 99 H ABG Base Excess -3 Quality Measures Quality Measures VTE prophylaxis (Heparin) Advance care planning discussed with:: patient Assessment & Plan Assessment Current Active Medications: Generic Name Dose Route Start Last Admin Trade Name Freq PRN Reason Stop Dose Admin Acetaminophen 650 mg 04/20/24 16:15 Acetaminophen 325 Mg Tablet PO 05/12/24 08:32 Q6HR PRN Fever >101 and abdominal pain Hydrocodone Bitart/Acetaminophen 1 tab 04/20/24 16:14 04/22/24 08:13 Hydrocodone/Apap 5/325 Tablet PO 04/25/24 16:13 1 tab Q8HR PRN Administration PAIN SCALE 5-10(Mod-Sev Dextrose 25 ml 04/14/24 11:20 Dextrose 50%-Water Inj 50 Ml Syringe IV 05/14/24 11:19 Q15MIN PRN BG 50-70 responsive npo pt Dextrose 50 ml 04/14/24 11:20 Dextrose 50%-Water Inj 50 Ml Syringe IV 05/14/24 11:19 Q15MIN PRN BG <50 OR BG <70 & pt unresponsive Docusate Sodium 100 mg 04/15/24 09:20 Docusate Sod 100 Mg Capsule PO 05/13/24 13:44 QDAY PRN CONSTIPATION Protocol Gabapentin 100 mg 12/08/24 14:00 04/22/24 05:44 Gabapentin 100 Mg Capsule PO 05/16/24 13:59 100 mg TID ASHISH Administration Glucagon 1 mg 04/14/24 11:20 Glucagon Inj 1 Mg Vial IM Q15MIN PRN BG <70, and no IV access Heparin Sodium (Porcine) 5,000 unit 04/12/24 21:00 04/22/24 08:14 Heparin Sod Inj 5000 Unit/Ml Vial SC 04/26/24 20:59 5,000 unit BID ASHISH Administration Levothyroxine Sodium 125 mcg/ 175 mcg 04/13/24 06:00 04/22/24 05:43 Levothyroxine Sodium 50 mcg PO 05/13/24 05:59 175 mcg ACBR ASHISH Administration Lidocaine HCl 30 ml 04/15/24 12:38 Lidocaine Hcl 1% 20 Ml Vial INFL X1 PRN PIV insertion Megestrol Acetate 400 mg 04/18/24 11:00 04/22/24 08:13 Megestrol Acet Susp 400 Mg/10 Ml Udc PO 05/18/24 10:59 400 mg DAILY ASHISH Administration Metoprolol Tartrate 25 mg 04/21/24 11:00 04/22/24 08:13 Metoprolol Tartrate 25 Mg Tablet PO 05/21/24 10:59 25 mg BID ASHISH Administration Pantoprazole Sodium 40 mg 04/15/24 09:00 04/22/24 08:13 Pantoprazole 40 Mg Tablet PO 05/15/24 08:59 40 mg QDAY ASHISH Administration Polyethylene Glycol 17 gm 04/15/24 09:20 Polyethylene Glycol 17 Gm Packet PO 05/14/24 08:59 QDAY PRN CONSTIPATION Protocol Valproic Acid 750 mg 04/03/24 09:00 04/22/24 08:13 Valproic Acid Syrup 250 Mg/5 Ml Udc PO 05/03/24 08:59 750 mg BID ASHISH Administration Plan 78-year-old female with past medical history of hypothyroidism, hypertension, JACKIE, asthma, depression, bipolar disorder, dementia, recurrent UTIs, and 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 1. Symptomatic sinus bradycardia - resolved 2. Intermittent Atrial Arrhythmias, A-fib vs Atrial tachycardia - resolved 3. Hypotension ? Sinus Bradycardia mostly likely vasovagal secondary to postop pain and nausea vs underlying sick sinus syndrome ? Patient's has atrial arrhythmias there is with evidence of significant frequent PACs. There was evidence of atrial arrhythmias which could be A-fib versus atrial tachycardia intermittently which are mostly sec to sepsis and electrolyte abnormalities. At this time patient is rate controlled. ? Patient has good chronotropic response ? EKG showed sinus bradycardia with first-degree AV block ? Prior EKG on 04/09/2024 showed sinus rhythm with a heart rate was 76 and no AV block. ? Patient is not on beta-blockers at this time given her bradycardia -Patient's echo had the following findings: Normal LV size and function. Grade I diastolic dysfunction. Estimated EF 65-70% Normal RV size and function. Trace MR, PI, Mild TR. Mild AV sclerosis without stenosis Plan: ? No rate control medications including CCB or Beta blockers due to hypotension and intermittent bradycardia. - All the intermittent atrial arrhythmias have resolved at the present point of time and no no further anticoagulation required as there were no arrhythmias and also patient has history of GI bleed. -Patient possibly has underlying sick sinus syndrome but her heart rate never went down below 55 bpm and now is 70s bpm. ? Recommend aggressive repletion of the potassium and magnesium, maintain above 4 and 2 respectively, to avoid any arrhythmias. ?Will continue to monitor patient's heart rate as she has been stable in the 70s overnight. 4. MAKENZIE 5. Acute uremic encephalopathy, resolved ?Patient initially came in with altered mental status and BUN of 121 with creatinine of 9.5. ? Patient's baseline creatinine was around 1 and BUN 27 on 02/16/2024 ?Recommend to follow-up with nephrology recommendations ?Continue current management as per primary care team 6. Sepsis secondary to UTI versus intra-abdominal abscess 7. E. coli UTI 8. Intra-abdominal abscess 9. 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 Patient had an I&D on 04/01/2024 by general surgery ? Patient had a ex lap with reversal ileostomy on 04/09/2024 by general surgery ?Recommend to continue current management as per primary care team 10. Normocytic normochromic anemia ?Patient's hemoglobin has been in the 8-9's prior to admission ? On admission patient's hemoglobin was 12.6 ? Could be due to blood loss from surgery versus hemodilutional versus GI bleed ? Recommend close monitoring and to transfuse if hemoglobin less than 7 11. Complex partial seizures, new onset ?Patient had an episode of shakiness and blank stare on 03/26/2024 ? EEG was normal and MRI was unrevealing ?Patient currently on valproic acid ? Recommend to follow neurology recommendations 12. Pseudohyponatremia, resolved ?Patient's initial sodium was 123 with osmolality of 286 ?Continue current management as per primary care team 13. Hx of hypothyroidism 14. Hx of asthma 15. Hx of depression 16. Hx of bipolar disorder 17. Hx of dementia 18. Hx of JACKIE ?Continue current management as per primary care team Continue rest of management as per primary team. Cardiology will sign off, please reach out with any questions. We are grateful to be able to participate in Mrs. Shell's care. Thank you for the consult Plan of care discussed with attending Transmitter Engineer In Charge, Dr. Manuel Arce MD PGY-1 Attending Provider Attestation/Addendum I have personally seen and examined the patient separately on the above date of service and discussed the plan of care with the resident. I reviewed the resident Dr. Dey consultation progress note and agree with the resident findings and plan in the note above and have also edited the documentation to reflect my findings and plan. Сергей Jackson M.D. Interventional Cardiology
--- NOTE | 2024-04-22 11:30 | PC.CM ---
[facility] accepted the pt. and it was booked by [facility] transfer nurse.
--- NOTE | 2024-04-22 13:44 | ESPR_ITS ---
<Statement entered by Brigette Bermudez MD - 05/09/24 09:26> I reviewed above note and agree with findings and plans. I have also personally examined the patient with medicine team and went over assessment and plan with medical team including general internist and physician leader and resident physician. Documentation for date of: 04/22/24 Subjective Subjective Interval history: Patient seen today at the bedside fine awake, alert, oriented x 3. No overnight events reported. States no active complaints at this time. Vital signs stable at this time. Patient had some episodes of tachycardia for which discharge was held, labs were drawn we will follow-up. Anticipate discharge in next 24 to 48 hours. Exam Vital Signs Temp Pulse Resp BP Pulse Ox O2 Del Method O2 Flow Rate 97.4 F 76 18 138/67 H 95 Room Air 2 04/22/24 12:00 04/22/24 12:00 04/22/24 12:00 04/22/24 12:00 04/22/24 12:00 04/22/24 12:00 04/21/24 12:00 FiO2 90 04/19/24 07:55 Narrative Exam Physical Exam GENERAL: NAD, NC/AT, responsive/cooperative. A&Ox3 HEENT: Moist mucosa. Eyes open, symmetrical, & clear CARDIO: No chest pain on palpation. Heart RRR, no obvious murmurs PULM: No noted coughing/dyspnea. Lungs CTA B/L, no R/W/R GI: Wound vac in place. 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 SKIN/MSK/EXT: No wounds/rashes/edema/amputations, no pain on palpation. Pedal pulses present B/L NEURO: AAOx3 Objective Labs 04/22/24 14:12 04/22/24 14:12 Labs: Laboratory Results - last 24 hr 04/21/24 16:23 WBC 17.9 H RBC 3.67 L Hgb 10.4 L Hct 31.6 L MCV 86 MCH 28.3 MCHC 32.9 RDW Std Deviation 51.5 H Plt Count 198 Neut % (Auto) 64 Lymph % (Auto) 16 [place] % (Auto) 9 Eos % (Auto) 2 Baso % (Auto) 1 Neut # (Auto) 11.4 H Lymph # (Auto) 2.8 [place] # (Auto) 1.7 H Eos # (Auto) 0.3 Baso # (Auto) 0.1 Immature Gran # (Auto) 1.65 H Absolute Nucleated RBC 0.00 Immature Gran % 9 H Nucleated RBC % 0 Sodium 132 L Potassium 4.4 Chloride 105 Carbon Dioxide 24.2 Anion Gap 3 L BUN 12 Creatinine 0.6 Estim Creat Clear Calc 79.6 eGFR > 60 BUN/Creatinine Ratio 20 Glucose 88 Calculated Osmolality 263 L Calcium 7.2 L Corrected Calcium 8.7 Phosphorus 2.2 L Magnesium 1.3 L Total Bilirubin 0.2 L AST < 8 ALT 8 L Alkaline Phosphatase 338 H D Total Protein 4.5 L Albumin 2.1 L Globulin 2.4 Albumin/Globulin Ratio 0.9 L ABG Interpretation ABG results: 03/21/24 05:40 ABG pH 7.35 ABG pCO2 41 ABG pO2 121 H ABG HCO3 23 ABG O2 Saturation 99 H ABG Base Excess -3 Quality Measures Quality Measures VTE prophylaxis (Heparin) Advance care planning discussed with:: patient Assessment & Plan Assessment Current Active Medications: Generic Name Dose Route Start Last Admin Trade Name Freq PRN Reason Stop Dose Admin Acetaminophen 650 mg 04/20/24 16:15 Acetaminophen 325 Mg Tablet PO 05/12/24 08:32 Q6HR PRN Fever >101 and abdominal pain Hydrocodone Bitart/Acetaminophen 1 tab 04/20/24 16:14 04/22/24 08:13 Hydrocodone/Apap 5/325 Tablet PO 04/25/24 16:13 1 tab Q8HR PRN Administration PAIN SCALE 5-10(Mod-Sev Dextrose 25 ml 04/14/24 11:20 Dextrose 50%-Water Inj 50 Ml Syringe IV 05/14/24 11:19 Q15MIN PRN BG 50-70 responsive npo pt Dextrose 50 ml 04/14/24 11:20 Dextrose 50%-Water Inj 50 Ml Syringe IV 05/14/24 11:19 Q15MIN PRN BG <50 OR BG <70 & pt unresponsive Docusate Sodium 100 mg 04/15/24 09:20 Docusate Sod 100 Mg Capsule PO 05/13/24 13:44 QDAY PRN CONSTIPATION Protocol Gabapentin 100 mg 04/16/24 14:00 04/22/24 05:44 Gabapentin 100 Mg Capsule PO 05/16/24 13:59 100 mg TID ASHISH Administration Glucagon 1 mg 04/14/24 11:20 Glucagon Inj 1 Mg Vial IM Q15MIN PRN BG <70, and no IV access Heparin Sodium (Porcine) 5,000 unit 04/12/24 21:00 04/22/24 08:14 Heparin Sod Inj 5000 Unit/Ml Vial SC 04/26/24 20:59 5,000 unit BID ASHISH Administration Levothyroxine Sodium 125 mcg/ 175 mcg 04/13/24 06:00 04/22/24 05:43 Levothyroxine Sodium 50 mcg PO 05/13/24 05:59 175 mcg ACBR ASHISH Administration Megestrol Acetate 400 mg 04/18/24 11:00 04/22/24 08:13 Megestrol Acet Susp 400 Mg/10 Ml Udc PO 05/18/24 10:59 400 mg DAILY ASHISH Administration Metoprolol Tartrate 25 mg 04/21/24 11:00 04/22/24 08:13 Metoprolol Tartrate 25 Mg Tablet PO 05/21/24 10:59 25 mg BID ASHISH Administration Pantoprazole Sodium 40 mg 04/15/24 09:00 04/22/24 08:13 Pantoprazole 40 Mg Tablet PO 05/15/24 08:59 40 mg QDAY ASHISH Administration Polyethylene Glycol 17 gm 04/15/24 09:20 Polyethylene Glycol 17 Gm Packet PO 05/14/24 08:59 QDAY PRN CONSTIPATION Protocol Valproic Acid 750 mg 04/03/24 09:00 04/22/24 08:13 Valproic Acid Syrup 250 Mg/5 Ml Udc PO 05/03/24 08:59 750 mg BID ASHISH Administration Plan 78-year-old female with PMHx of hypertension, hyperlipidemia, asthma and 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 Patient had multiple hemodialysis sessions and reversal of ileostomy currently with wound VAC in place. #S/P Reverse ileostomy #Hx of Right colectomy with diverting ileostomy #Intra-abdominal fluid collection, possible abscess or infection #Leukocytosis-improving Concern for patient as she is not getting up and moving Encouraging patient to ambulate Pt was to be getting discharged yesterday, but due to insurance issues, pt stayed WBC 14 Awaiting home health and appreciate general surgery input Patient was discharged and pending home arrangements for home health Patient developed some tachycardia was kept yesterday but today with no symptoms and remained with stable vitals Plan to discharge in 24-48hours once home health arrangements made ?Surgery on case, appreciate recs ?Wound VAC in place ?Tylenol as needed ?Physical therapy ?Continue wound care ?Encourage ambulation ?Gabapentin 100 3 times daily #Failure to thrive #Poor oral intake #Hypoglycemia ?Megace 400 mL daily, ?Hypoglycemic protocol in place ?PT on case ?Up to chair with assistance #Normocytic anemia Hemoglobin has dropped from 11 to 8 status post ex lap, report says blood loss about 100 mL Anemia has improved back to baseline at 11 -monitor #Euosmolar hyponatremia Possible component of dehydration leading to hyponatremia due to poor oral intake. Hyponatremia is likely also contributed to GI losses through colostomy bag. On physical examination, patient had very dry mucous membranes and often does not consume full meals. Sodium 132 today #Chronic insomnia #New onset seizures #Complex partial seizures #History of depression #History of dementia #History of bipolar disorder #History of anxiety Suspicion of seizures marked by shakiness and blank staring. Teleneuro was consulted. CT head and CTA negative for any acute findings. Patient has been seizure free since New onset intermittent bilateral tremors noted. Patient denied any dizziness, headache, nausea, vomiting. New onset of seizures could be because patient stopped taking Depakote, is on 250 at home, takes Depakote for bipolar disorder Patient takes valproate for bipolar, home dose 250 mg -Neurologist Dr Brush on case, appreciate recommendations -Valproate 750mg twice daily -Gabapentin 100mg TID -Seizure precautions #History of hypothyroidism Patient has a history of hypothyroidism. She takes levothyroxine at home. ?Levothyroxine 175 mcg before breakfast #History of hypertension Chronic, uncontrolled Patient has a longstanding hypertension on both metoprolol and hydralazine. ?Metoprolol tartrate 25mg BID #History of asthma ? DuoNebs every 4 hours breathing treatment as needed #Sepsis, resolved #Acute encephalopathy uremic vs infectious-resolved #Electrolyte imbalances #Hyperphosphatemia-resolved #Hyperkalemia, resolved #Hypomagnesemia #Hypochloremia-resolved #Hypocalcemia-resolved #Constipation-resolved #MAKENZIE-resolved #E.Coli UTI-resolved #History of recurrent UTI Case discussed with my senior Dr. Quresh PGY-[address] Lara Chandra MD PGY-1 Disposition: Medsurg, discharge in next 24 hours Fluids: None Feeding: Cardiac diet Thrombo prophylaxis: Heparin Gastric Ulcer prophylaxis: Pantoprazole CODE STATUS: Full code Senior resident attestation: Patient evaluated and examined at the bedside, plan of care discussed with rest of the team including my attending physician, except as noted. Patient is 78-year-old female with multiple comorbidities, and prolonged hospital course complicated with MAKENZIE requiring hemodialysis. 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 Patient currently has a wound VAC, hemodynamically stable. Patient completed antibiotic treatment at the hospital. Yesterday, discharge was with held due to tachycardia. Currently patient is back to her baseline mental status. #Sepsis now resolved #Acute kidney injury now resolved #Status post right colectomy status post ileostomy reversal #History of diabetes mellitus #Reactive leukocytosis #Bradycardia, now resolved #History of insomnia #History of dementia #History of depression #History of anxiety #History of bipolar disorder, on valproic acid #History of UTI recurrent #complex partial seizures #History of hypothyroidism #history of hypertension Carlos PGY2
[2024-04-22 14:39] LABS: Basophils % (Auto) 0 % (0-2.5); Eosinophils # (Auto) 0.2 Thou/mm3 (0.0-0.5); Eosinophils % (Auto) 2 % (0-10); Hematocrit 32.6 % (36.0-46.0); Hemoglobin 10.4 g/dL (12.0-16.0); Immature Granulocytes % (Auto) 10 % (0-0); Immature Granulocytes Auto 1.47 Thou/mm3 (0.00-0.00); Lymphocytes % (Auto) 21 % (10-50); Mean Corpuscular HGB Conc 31.9 g/dl (31.0-37.0); Mean Corpuscular Hemoglobin 27.9 pg (25.0-35.0); Mean Corpuscular Volume 87 fL (80-100); Monocytes # (Auto) 1.2 Thou/mm3 (0.0-0.8); Monocytes % (Auto) 9 % (0-12); Neutrophils # (Auto) 8.3 Thou/mm3 (1.8-7.7); Neutrophils % (Auto) 58 % (37-80); Nucleated Red Blood Cell % 0 /100 WBC (0); Platelet Count 179 Thou/mm3 (140-440); RDW Standard Deviation 53.1 fL (36.4-46.3); Red Blood Count 3.73 Miln/mm3 (4.00-5.20); White Blood Count 14.3 Thou/mm3 (3.6-11.0)
[2024-04-22 14:55] LABS: Alanine Aminotransferase < 7 U/L (10-49); Albumin, Serum 2.2 gm/dL (3.4-4.8); Albumin/Globulin Ratio 0.8 (1.2-2.2); Alkaline Phosphatase 312 U/L (46-116); Anion Gap 2 (7-16); Aspartate Amino Transferase < 8 U/L (0-34); BUN/Creatinine Ratio 19 Ratio (12-20); Bilirubin,Total 0.2 mg/dL (0.3-1.2); Blood Urea Nitrogen 13 mg/dL (9-23); Calcium 7.4 mg/dL (8.3-10.6); Calcium (Corrected) 8.8 mg/dL (8.5-10.1); Carbon Dioxide 25.1 mMol/L (20.0-31.0); Chloride 105 mMol/L (98-107); Creatinine (Component) 0.7 mg/dL (0.6-1.3); Globulin 2.6 gm/dL (2.3-3.5); Glucose 94 mg/dL (74-106); Magnesium 1.2 mg/dL (1.6-2.6); Osmolality,Calculated 264 (275-295); Phosphorous 2.5 mg/dL (2.4-5.1); Potassium 4.6 mMol/L (3.4-5.1); Sodium 132 mMol/L (136-145); Total Protein 4.8 gm/dL (5.7-8.2); eGFR > 60 See Note
[2024-04-22] MEDS: Magnesium Sulfate 4 GM Ivpb 4 GM/50 ML BAG IV (15:54)
[2024-04-22] MEDS: Magnesium Sulfate 2 GM Ivpb 2 GM/50 ML BAG IV (20:24)
[2024-04-23] VITALS (7 sets, daily range): BP systolic 124–145; BP diastolic 55–76; PULSE 61–93; RESP 18–24; TEMP 36.2–36.7; O2SAT 94; BMI 31.2
[2024-04-23] MEDS: GABAPENTIN 100 MG CAPSULE PO ×2 (05:28→14:34)
[2024-04-23] MEDS: LEVOTHYROXINE SODIUM 125 MCG, LEVOTHYROXINE SODIUM 50 MCG 175 MCG PO (05:28)
[2024-04-23 07:27] LABS: Basophils % (Auto) 0 % (0-2.5); Eosinophils # (Auto) 0.2 Thou/mm3 (0.0-0.5); Eosinophils % (Auto) 2 % (0-10); Hematocrit 29.7 % (36.0-46.0); Hemoglobin 9.8 g/dL (12.0-16.0); Immature Granulocytes % (Auto) 9 % (0-0); Immature Granulocytes Auto 1.24 Thou/mm3 (0.00-0.00); Lymphocytes # (Auto) 2.5 Thou/mm3 (1.0-4.8); Lymphocytes % (Auto) 18 % (10-50); Mean Corpuscular Hemoglobin 28.2 pg (25.0-35.0); Mean Corpuscular Volume 86 fL (80-100); Monocytes # (Auto) 1.4 Thou/mm3 (0.0-0.8); Monocytes % (Auto) 10 % (0-12); Neutrophils # (Auto) 8.2 Thou/mm3 (1.8-7.7); Neutrophils % (Auto) 61 % (37-80); Nucleated Red Blood Cell % 0 /100 WBC (0); Platelet Count 223 Thou/mm3 (140-440); RDW Standard Deviation 51.7 fL (36.4-46.3); Red Blood Count 3.47 Miln/mm3 (4.00-5.20); White Blood Count 13.5 Thou/mm3 (3.6-11.0)
[2024-04-23 07:58] LABS: Alanine Aminotransferase < 7 U/L (10-49); Albumin/Globulin Ratio 0.8 (1.2-2.2); Alkaline Phosphatase 264 U/L (46-116); Anion Gap 5 (7-16); Aspartate Amino Transferase 10 U/L (0-34); BUN/Creatinine Ratio 22 Ratio (12-20); Bilirubin,Total < 0.2 mg/dL (0.3-1.2); Blood Urea Nitrogen 13 mg/dL (9-23); Calcium 7.3 mg/dL (8.3-10.6); Calcium (Corrected) 8.9 mg/dL (8.5-10.1); Carbon Dioxide 24.9 mMol/L (20.0-31.0); Chloride 104 mMol/L (98-107); Creatinine (Component) 0.6 mg/dL (0.6-1.3); Estimated Creatinine Clearance 80.2 mL/min (>60); Globulin 2.4 gm/dL (2.3-3.5); Glucose 110 mg/dL (74-106); Magnesium 2.1 mg/dL (1.6-2.6); Osmolality,Calculated 269 (275-295); Phosphorous 2.5 mg/dL (2.4-5.1); Potassium 4.2 mMol/L (3.4-5.1); Sodium 134 mMol/L (136-145); Total Protein 4.4 gm/dL (5.7-8.2); eGFR > 60 See Note
[2024-04-23] MEDS: MEGESTROL ACET SUSP 400 MG/10 ML UDC PO (09:47)
[2024-04-23] MEDS: HEPARIN SOD INJ 5000 UNIT/ML VIAL SC (09:47)
[2024-04-23] MEDS: METOPROLOL TARTRATE 25 MG TABLET PO (09:48)
[2024-04-23] MEDS: PANTOPRAZOLE 40 MG TABLET PO (09:49)
--- NOTE | 2024-04-23 10:50 | PC.SS ---
Addendum entered by Kimberly Dong 04/23/24 11:08: Time changed to 1615 Original Note: SS spoke to pt Sahra Shell, daughter, [phone] in regards to pt DC today. IMM provided. Sahra reports just needing a few hours to finalizing a few things at home. SS verified with Caitlin BENÍTEZ pt is not on O2 therefore [facility] utilized. SS spoke to [facility] set up, only time they can come is 1645. Caitlin BENÍTEZ updated and dtr Sahra.
[2024-04-23] MEDS: VALPROIC ACID SYRUP 250 MG/5 ML UDC 750 MG PO (11:31)
--- NOTE | 2024-04-23 13:41 | ESDS_ITS ---
<Statement entered by Brigette Bermudez MD - 05/09/24 09:28> I reviewed above note and agree with findings and plans. I have also personally examined the patient with medicine team and went over assessment and plan with medical team including fashion buying internship and resident physician. Planned Discharge Date 04/23/24 DS: Providers Provider Date of admission: 03/21/24 05:24 Primary care physician: Jorge Herndon MD Admitting Provider: Brennon Frazier MD Attending Provider on Admission: Brigette Bermudez MD Consults: 03/21/24 05:20 Consult to General Surgery Stat Comment: Consulting Provider: Adeline Flynn 03/21/24 08:29 Consult to Nephrology Stat Comment: Consulting Provider: Zhen Rahman 03/21/24 15:17 Referral Wound Care Routine Comment: 03/21/24 22:42 Referral [facility] Routine Comment: pt desires a visit from [facility] for prayer Referral Registered Dietitian Routine Comment: 03/22/24 08:00 Referral Discharge Planning Stat Comment: op dialysis at dialysis 03/28/24 09:49 Consult to Neurology / Tele-Neurology Routine Comment: EEG read Consulting Provider: [facility] 03/28/24 12:49 Referral Physical Therapy Routine Comment: Physician Instructions: 03/30/24 14:38 Consult to Neurology / Tele-Neurology Routine Comment: Consulting Provider: Marcellus Brush 04/11/24 09:16 Consult to Cardiology Stat Comment: Consulting Provider: Сергей Jackson 04/13/24 10:28 Referral Physical Therapy Routine Comment: Physician Instructions: 04/16/24 10:30 Referral Physical Therapy Routine Comment: Physician Instructions: Attending Provider on DC: Brigette Bermudez MD Discharging Provider: Brigette Bermudez MD DS: Diagnosis Problem List Completed Was Problem List Reviewed/Reconciled?: Yes Hospital Course Hospital Course Hospital course: Roula Shell is a 78 year old female with a past medical history of hypothyroidism, hypertension, JACKIE, asthma, depression, dementia, recurrent UTI, and is status post hemicolectomy with ileostomy who was admitted on 03/21/2024 for acute renal failure requiring dialysis, new onset seizures, diagnosis which required I&D, and reverse ileostomy. Patient had come to the ED for altered mental status and weakness. She had come to the ED with temperature of 95.7, heart rate of 96, blood pressure 142/57 on room air. She was worked up and was found to have a white blood count of 20.9, sodium 123, potassium 55, chloride of 88, bun of 121, creatinine of 1.1, phosphorus of 2.7, urinalysis showed 1551 white blood cells, 40 RBCs, bacteria and yeast present. CT abdomen pelvis showed some suspicious abscess of the lower quadrant, CT head was unremarkable. Patient on fluids, Rocephin and magnesium and patient was admitted to the floors after medicine was consulted. E coli treatment was begun. General surgery, Dr. Flynn, was consulted to evaluate possible abscess in the abdomen. Patient required hemodialysis before ending surgical intervention. Patient began to recover and was planning to get reverse ileostomy once patient's condition improved. Patient had a number of of rapid responses called on the floors. The first rapid response being 1 evaluation of seizure like activity, and had amantadine held for her. Next rapid was called which was an evaluation for hypotension, given fluids and general surgery was made note of this rapid due to the culprit possibly being the abscess in her abdomen. The last rapid was called was for evaluation of seizure-like activity, in which patient had antiepileptics (Keppra and Depakote) given to her with doses changed. Of note, patient had not been restarted immediately on her psychiatric medicines in which she takes for bipolar, which could have lowered the threshold for seizures. Neurology has been consulted with the recommendations as well. Patient had I&D of abdominal abscess on 04/01/2024 which had about 20 cc of pus drained, and patient tolerated procedure well. On 04/09/2024, patient had reverse ileostomy former Dr. Flynn, in which procedure was successful and patient had wound VAC placed. On 04/11/2024, patient was upgraded to ICU for evaluation of hypothermia, hypotension and bradycardia. Patient was given fluids and atropine prior to being upgraded to ICU, with minimal improvement with MAP. Of note, patient had developed the symptoms shortly after patient was restarted on home Ambien, which she has been taking. While in the ICU patient was started on pressure support. Once patient had improved, she was downgraded back to the floors in which patient was treated for pain, kidney injury and surgery recovery. Patient began to have regular bowel movements, improvement in kidney function and improvement in abdominal pain. Patient was then discharged to SNF with wound VAC in place with recommendations to follow-up outpatient and for recovery. Pt was held for a couple extra days due to some additional pain and elevation in WBC and Cr which had improved upon discharge. Prior to discharge, spoke with radiologist, Dr. Sprague, in regards to a fat mass seen in pelvis, and he has low concerns for pelvic abscess at this time. Ultrasound was done for patient, but study was limited due to bowel gas. After patient had been discharged, she began to feel some abdominal pain and also family had appealed discharge. Further discussion had led to patient being discharged on home health pending authorization. Patient also had an episode of some tachycardia prior to discharge but had eventually resolved. Follow up with PCP within one week from discharge Follow up with the general surgeon within one week from discharge Follow up with neurologiest Dr Magaña within one week from discharge Follow up with wound care nurse instructions Use medications as prescribed In case of worsening of your symptoms please return to the ED as soon as possible #S/P Reverse ileostomy, #Hx of Right colectomy with diverting ileostomy #Abdominal abscess, s/p I&D #Reactive Leukocytosis, resolved #Constipation-resolved #Hypoglycemia, resolved #MAKENZIE, resolved #Acute renal failure, resolved #Hypotension, resolved #Bradycardia, resolved #Hypothermia, resolved #Chronic insomnia #Electrolyte imbalances #Hyperphosphatemia-resolved #Hyperkalemia, resolved #Hypomagnesemia #Normocytic anemia #Euosmolar hyponatremia, resolved #E.Coli UTI #History of recurrent UTI #New onset seizures #Complex partial seizures #History of hypothyroidism #History of hypertension #History of depression #History of dementia #History of bipolar disorder #History of anxiety #History of asthma #Hypochloremia-resolved #Hypocalcemia-resolved #Hyperphosphatemia-resolved #Sepsis, resolved #Acute encephalopathy uremic vs infectious-resolved Patient seen and care discussed with my senior resident, Dr. Gonzalez, and my attending physician, Dr. Lara Hinson, PGY-1 Senior resident attestation: Patient evaluated and examined at the bedside, plan of care discussed with rest of the team including my attending physician, except as noted. The patient is stable, ambulatory, afebrile and tolerating Per oral medications at the time of discharge. The patient understood and agreed to the treatment plan. Follow up with Primary care physician with labs within 3-5 days of discharge. If symptoms persist or worsen, return to the Emergency Department. Carlos PGY2 Time Spent with Patient Time attestation: Total time spent providing and/or coordinating discharge services: Time spent: Greater than 30 minutes Exam Vital Signs Temp Pulse Resp BP Pulse Ox O2 Del Method O2 Flow Rate 97.2 F 84 18 128/76 94 L Room Air 2 04/23/24 12:00 04/23/24 12:00 04/23/24 12:00 04/23/24 12:00 04/23/24 12:00 04/23/24 12:04/21/24 12:00 FiO2 90 04/19/24 07:55 Narrative Exam GENERAL: NAD, NC/AT, responsive/cooperative. A&Ox3 HEENT: Moist mucosa. Eyes open, symmetrical, & clear CARDIO: No chest pain on palpation. Heart RRR, no obvious murmurs PULM: No noted coughing/dyspnea. Lungs CTA B/L, no R/W/R GI: Wound vac in place. 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 SKIN/MSK/EXT: No wounds/rashes/edema/amputations, no pain on palpation. Pedal pulses present B/L NEURO: AAOx3 Discharge Plan Plan Patient Disposition: Home w/HOME HEALTH Patient condition on transfer: Benefits outweigh risks Care Plan Goals: Follow up with PCP within one week from discharge Follow up with the general surgeon within one week from discharge Follow up with neurologiest Dr Magaña within one week from discharge Follow up with wound care nurse instructions Use medications as prescribed In case of worsening of your symptoms please return to the ED as soon as possible Prescriptions/Referrals Prescriptions/Med Rec: New pantoprazole 40 mg Tablet,Delayed Release (Dr/Ec) 40 mg PO QDAY 30 Days Qty: 30 0RF valproic acid (as sodium salt) 250 mg/5 mL (5 mL) Solution 750 mg PO BID 30 Days Qty: 900 2RF Continued nortriptyline 10 mg Capsule 10 mg PO DAILY divalproex [Depakote] 250 mg Tablet,Delayed Release (Dr/Ec) 250 mg PO DAILY montelukast 10 mg Tablet 10 mg PO DAILY ondansetron HCl 8 mg Tablet 8 mg PO Q6HR PRN (Reason: Nausea And Vomiting) levothyroxine 137 mcg tablet 137 mcg PO QDAY Patient Comments: take 1 tablet by mouth every morning ON AN EMPTY STOMACH metoprolol tartrate 25 mg tablet 25 mg PO BID Patient Comments: take 1 tablet by mouth twice a day atorvastatin 10 mg Tablet 10 mg PO QPM famotidine [Pepcid] 20 mg Tablet 20 mg PO Q12H hydroxyzine HCl 25 mg Tablet 25 mg PO Q12HR PRN (Reason: Anxiety) ergocalciferol (vitamin D2) [Vitamin D2] 1,250 mcg (50,000 unit) Capsule 1,250 mcg PO QOWEEK Changed oxycodone-acetaminophen [Percocet] 10-325 mg Tablet 10 - 325 tab PO Q6H 6 Days Qty: 24 0RF Discontinued donepezil 10 mg Tablet 10 mg PO DAILY memantine 10 mg Tablet 10 mg PO BID zolpidem [Ambien] 5 mg Tablet 5 mg PO HS valproic acid (as sodium salt) 250 mg/5 mL Solution 500 mg PO HS morphine 15 mg Tablet 15 mg PO Q12H PRN (Reason: Pain) Referrals: Adeline Flynn MD [Physician] - (You will receive a phone call to confirm a follow-up appt with me on May 6 at 330pm) Yanick (PCP)Jorge MD [Primary Care Provider] - Patient/Caregiver Discharge Instructions Discharge Activity: as per physical therapy Other Discharge Activity Instructions:: Wound care: 1) Full thickness surgical wound to abdomen: irrigate with NS, pat dry, fill with black foam. Skin prep to wound edges, drape and trac pad at 125mmhg contionus suction. Change Wed, Wed, Wed and PRN for suction off greater than 2 hours (Last dressing change Wednesday04/21/24) IF unable to keep wound vac suction. Remove all wound vac dressing peices from wound bed, irrigate with normal saline. Pat dry with gauze. Moistened rolled gau ze with normal saline and pack wound. Cover with dry gauze and secure with tape. Please inform home health if wound vac comes off. Education Materials: Abdomen Surg Dc, Nutrition for Wound Healing, Dehydration, Sepsis, Discharge Instructions Wound ..., Preventing Surgical Site Infections, Negative Pressure Wound Therapy, ED Seizure New Onset Unknown ... Print Language: Omani Stand Alone Forms: Alison Award Info., Patient Portal Info Letter Discharge Order Discharge Orders: Discharge (Routine); Ordered 04/23/24 Ordered By: Marcelino Hinson Quality Discharge Quality Measures VTE prophylaxis
[2024-04-23] MEDS: HYDROcodone/APAP 5/325 TABLET 1 TAB PO (14:33)
--- NOTE | 2024-04-23 18:56 | PC.CM ---
sent DC summary to [facility] Pending start of care date.
--- NOTE | 2024-04-24 07:53 | PC.CM ---
Patient accepted by [facility] and start of care date. 04/23.
== END 2024-04-23 16:11 | disposition home health service (06) | DRG 854 ==
LOC: SERX 01:09 → SERHOLD 05:25 → S2NX 16:58 → S3SX 03-25 11:33 → S2NX 03-26 22:33 → S2SX 04-11 03:27 → S2NX 04-12 19:09 → S3NX 04-20 05:36
PROVIDERS: Internal Medicine; Radiology Diagnostic Radiology; Student in an Organized Health Care Education/Training Program; Surgery; Admitting Provider Internal Medicine; Emergency Provider Emergency Medicine; PCP Family Medicine; Visit Provider Internal Medicine
PROC: 30233K1 Transfusion of Nonautologous Frozen Plasma into Peripheral Vein, Percutaneous Approach (ICD-10-PCS; CPT 49000; principal; 2024-04-09 09:00)
DX: A41.51 Sepsis due to Escherichia coli [E. coli] (principal); D62 Acute posthemorrhagic anemia; E87.1 Hypo-osmolality and hyponatremia; F03.93 Unspecified dementia, unspecified severity, with mood disturbance; N17.9 Acute kidney failure, unspecified; G93.49 Other encephalopathy; N39.0 Urinary tract infection, site not specified; F03.94 Unspecified dementia, unspecified severity, with anxiety; F03.918 Unspecified dementia, unspecified severity, with other behavioral disturbance; G40.209 Localization-related (focal) (partial) symptomatic epilepsy and epileptic syndromes with complex partial seizures, not intractable, without status epilepticus; Z93.2 Ileostomy status; E03.9 Hypothyroidism, unspecified; F31.9 Bipolar disorder, unspecified; E87.5 Hyperkalemia; E87.8 Other disorders of electrolyte and fluid balance, not elsewhere classified; E83.51 Hypocalcemia; E83.42 Hypomagnesemia; E83.39 Other disorders of phosphorus metabolism; I50.9 Heart failure, unspecified; I11.0 Hypertensive heart disease with heart failure; G47.33 Obstructive sleep apnea (adult) (pediatric); J45.909 Unspecified asthma, uncomplicated; I95.9 Hypotension, unspecified; E86.0 Dehydration; E78.5 Hyperlipidemia, unspecified; K59.00 Constipation, unspecified; F51.04 Psychophysiologic insomnia; E11.649 Type 2 diabetes mellitus with hypoglycemia without coma; I44.0 Atrioventricular block, first degree
CPT/HCPCS: 36415; 36600; 70450; 70496; 70498; 70544; 71045; 71250; 71260; 74176; 74177; 76705; 76770; 76856; 76937; 77001; 80048; 80053; 80069; 80074; 80177; 81001; 82140; 82550; 82803; 83605; 83735; 84100; 84132; 84145; 84439; 84443; 84484; 85014; 85018; 85025; 85610; 85730; 86580; 86706; 86850; 86900; 86901; 86923; 86927; 87040; 87077; 87081; 87086; 87186; 87493; 92610; 93005; 93225; 93306; 94640; 94664; 94762; 95816; 96361; 96365; 96366; 96367; 96368; 96372; 96375; 97162; 99291; A4649; C1752; C1894; J0131; J0461; J0612; J0694; J0696; J1100; J1200; J1642; J1643; J1815; J1953; J2060; J2270; J2274; J2405; J2470; J2543; J2704; J2710; J3010; J3370; J3475; J3480; J3490; J7030; J7040; J7042; J7050; J7120; P9016; P9060; Q0162; Q9967; A9270; J1596; J1644; J1836

== ENCOUNTER 2024-04-30 03:53 | Observation (INO) | payer OTHER, MEDICARE, SELFPAY ==
[2024-04-30] VITALS (16 sets, daily range): BP systolic 116–150; BP diastolic 62–98; PULSE 70–101; RESP 15–24; TEMP 36.1–37.2; O2SAT 93–99; BMI 29.9; BMI 27.8
--- NOTE | 2024-04-30 05:11 | PD.EDRME ---
Rapid Medical Screening Exam E Arrival date/time: 04/30/24 03:53 Chief Complaint: Abdominal Pain Vital signs: Vital Signs Temperature 98.4 F 04/30/24 04:59 Pulse Rate 81 04/30/24 04:59 Respiratory Rate 18 04/30/24 04:59 Blood Pressure 139/98 H 04/30/24 04:59 Pulse Oximetry (%) 97 04/30/24 04:59 Oxygen Delivery Method Room Air 04/30/24 04:59 RME Narrative: 78yo female accompanied by her daughter EDNA from home presents to the ED for a chief complaint of intermittent abdominal pain. Daughter states the patient had her colostomy bag reversed on 03/29/[address] Flynn and has been having pain since she ran out of her Percocet on Wednesday. She has not tried taking Tylenol for her pain.
[2024-04-30] MEDS: MORPHINE SULF INJ 10 MG/ML VIAL 4 MG IVP (05:43)
[2024-04-30] MEDS: ONDANSETRON INJ 2 MG/ML INJ 2 ML 4 MG IV (05:50)
--- NOTE | 2024-04-30 06:15 | XR_ITS ---
Examination: CT abdomen with intravenous contrast CT pelvis with intravenous contrast 2-D coronal reconstructions 2-D sagittal reconstructions Date and time of exam:April 30, 2024 0857 hrs. Comparison April 11, 2024 Indications: Status post reversal ileostomy with generalized abdominal pain today. CTDI: vol (mGy) 22.5 DLP: (mGycm) 730 Technique: Multiple axial sections of the abdomen and pelvis have been obtained. 64 slice high-resolution scanner used. 3 mm axial sections have been obtained, post intravenous injection 60 cc [id number] 2-D sagittal, coronal reconstructions obtained. Low dose protocols were performed. One or more of the following dose reduction techniques were used; automated exposure control, adjustment of the mA and/or KV according to patient size, use of iterative reconstruction technique. Findings: Bibasilar pneumonia with moderate bilateral pleural effusions Mild to moderate enlargement cardiac contour No focal liver or splenic lesions Absent gallbladder Anasarca No pancreatic mass Normal adrenal glands Moderate bilateral renal parenchymal scar formation Increased radiodensity throughout the peritoneum, peritonitis pattern Bowel obstruction No abdominal or pelvic abscess Contracted urinary bladder with wall thickening Prominent osteopenia with advanced degenerative disc disease L2-L3, L3-L4, L4-L5 Impression: Bibasilar pneumonia Moderate bilateral pleural effusions Anasarca Moderate bilateral renal parenchymal scar formation Cystitis pattern Increased radiodensity throughout the peritoneum, peritonitis pattern versus postoperative change, however no abdominal or pelvic abscess
[2024-04-30 07:58] LABS: Basophils # (Auto) 0.1 Thou/mm3 (0.0-0.2); Basophils % (Auto) 0 % (0-2.5); Eosinophils % (Auto) 0 % (0-10); Hematocrit 32.1 % (36.0-46.0); Hemoglobin 10.8 g/dL (12.0-16.0); Immature Granulocytes % (Auto) 1 % (0-0); Immature Granulocytes Auto 0.19 Thou/mm3 (0.00-0.00); Lymphocytes # (Auto) 1.4 Thou/mm3 (1.0-4.8); Lymphocytes % (Auto) 6 % (10-50); Mean Corpuscular HGB Conc 33.6 g/dl (31.0-37.0); Mean Corpuscular Hemoglobin 28.6 pg (25.0-35.0); Mean Corpuscular Volume 85 fL (80-100); Monocytes % (Auto) 9 % (0-12); Neutrophils # (Auto) 19.3 Thou/mm3 (1.8-7.7); Neutrophils % (Auto) 84 % (37-80); Nucleated Red Blood Cell % 0 /100 WBC (0); Platelet Count 381 Thou/mm3 (140-440); RDW Standard Deviation 49.7 fL (36.4-46.3); Red Blood Count 3.78 Miln/mm3 (4.00-5.20)
[2024-04-30] MEDS: SODIUM CHLORIDE 0.9% 1000 ML 1,000 ML 125 ML IV (08:08)
[2024-04-30 08:18] LABS: Alanine Aminotransferase < 7 U/L (10-49); Albumin, Serum 2.4 gm/dL (3.4-4.8); Albumin/Globulin Ratio 0.8 (1.2-2.2); Alkaline Phosphatase 183 U/L (46-116); Anion Gap 8 (7-16); Aspartate Amino Transferase 10 U/L (0-34); BUN/Creatinine Ratio 17 Ratio (12-20); Bilirubin,Total < 0.2 mg/dL (0.3-1.2); Blood Urea Nitrogen 12 mg/dL (9-23); Calcium 7.5 mg/dL (8.3-10.6); Calcium (Corrected) 8.8 mg/dL (8.5-10.1); Carbon Dioxide 24.7 mMol/L (20.0-31.0); Chloride 103 mMol/L (98-107); Creatinine (Component) 0.7 mg/dL (0.6-1.3); Estimated Creatinine Clearance 68.8 mL/min (>60); Globulin 2.9 gm/dL (2.3-3.5); Glucose 103 mg/dL (74-106); Lipase 25 U/L (12-53); Osmolality,Calculated 271 (275-295); Potassium 3.8 mMol/L (3.4-5.1); Sodium 136 mMol/L (136-145); Total Protein 5.3 gm/dL (5.7-8.2); eGFR > 60 See Note
[2024-04-30 09:10] LABS: Collection Type, Urine Catheter
[2024-04-30 09:21] LABS: Bacteria,Urine 3+; Bilirubin,Urine Negative (Negative); Blood,Urine Trace (Negative); Clarity,Urine Turbid (Clear/Hazy); Color,Urine Yellow (Lt Yel-Yel); Glucose, Urine Negative (Negative); Ketones,Urine Negative (Negative); Leukocyte Esterase,Urine Positive (Negative); Nitrite,Urine Negative (Negative); Protein,Urine Trace (Neg - Trace); RBC,Urine 5 /hpf (0-3); Specific Gravity,Urine 1.014 (1.001-1.035); Squamous Epithelial Cell,Urine 1 /hpf (0-5); Urobilinogen,Urine Negative mg/dL (0.0-1.0); WBC,Urine 522 /hpf (0-5)
[2024-04-30 09:24] LABS: Culture Indicated,Urine Yes
[2024-04-30 09:31] LABS: Influenza A Ag Negative; Influenza B Ag Negative
[2024-04-30] MEDS: PIPER/TAZO 3.375 GM 3.375 GM/50 ML BAG IV (10:22)
--- NOTE | 2024-04-30 10:33 | PD.EDABDPN ---
ED Abdominal Pain RME/HPI General Chief Complaint: Abdominal Pain Stated complaint: ABD PAIN Time seen by provider: 04/30/24 05:16 Arrival date/time: 04/30/24 03:53 RME / HPI RME / HPI narrative: 78yo female accompanied by her daughter EDNA from home presents to the ED for a chief complaint of intermittent abdominal pain. Daughter states the patient had her colostomy bag reversed on 03/29/[address] Flynn and has been having pain since she ran out of her Percocet on Wednesday. She has not tried taking Tylenol for her pain. DR. DUENAS MAIN ED EVALUATION 78 year old female with history of hypertension, s/p right sided hemicolectomy with diverting ileostomy by Dr. Flynn 02/2024, ileostomy reversal on 04/09/[address] Flynn, presents to the ED for abdominal pain, more specifically at/near the incisional site in the RUQ beginning 1 month ago. States pain is progressively worsening and stated she was recently admitted at the hospital and discharged home. Family add patient ran out of her pain medications. No fevers, chills, chest pain, cough, shortness of breath, or urinary symptoms. Related Data Home Medications ?Medication ?Instructions ?Recorded ?Confirmed divalproex 250 mg tablet,delayed 250 mg PO DAILY 12/18/23 04/12/24 release (Depakote) montelukast 10 mg tablet 10 mg PO DAILY 12/18/23 04/12/24 nortriptyline 10 mg capsule 10 mg PO DAILY 12/18/23 04/12/24 ondansetron HCl 8 mg tablet 8 mg PO Q6HR PRN Nausea And 01/24/24 04/12/24 Vomiting levothyroxine 137 mcg tablet 137 mcg PO QDAY 03/26/24 04/12/24 metoprolol tartrate 25 mg tablet 25 mg PO BID 03/26/24 04/12/24 atorvastatin 10 mg tablet 10 mg PO QPM 04/05/24 04/12/24 ergocalciferol (vitamin D2) 1,250 1,250 mcg PO QOWEEK 04/12/24 04/12/24 mcg (50,000 unit) capsule (Vitamin D2) famotidine 20 mg tablet (Pepcid) 20 mg PO Q12H 04/12/24 04/12/24 hydroxyzine HCl 25 mg tablet 25 mg PO Q12HR PRN Anxiety 04/12/24 04/12/24 Previous Rx's ?Medication ?Instructions ?Recorded oxycodone-acetaminophen 10 mg-325 10 - 325 tab PO Q6H 6 days #24 tabs 04/17/24 mg tablet (Percocet) pantoprazole 40 mg tablet,delayed 40 mg PO QDAY 30 days #30 tabs 04/17/24 release valproic acid (as sodium salt) 250 750 mg (15 mL) PO BID 30 days #900 04/17/24 mg/5 mL (5 mL) oral solution mL Allergies Allergy/AdvReac Type Severity Reaction Status Date / Time haloperidol Allergy Severe Confusion Verified 03/06/24 13:18 naproxen Allergy Intermediate HIVES Verified 03/06/24 13:18 fluoxetine Allergy Unknown ANXIETY Verified 03/06/24 13:18 Review of Systems Review of Systems Narrative Review of Systems: GEN: No fever, no chills, no weight loss EYES: No discharge, no visual changes, no pain HEENT: No ear pain, no congestion, no sore throat PULM: No shortness of breath, no cough, no congestion CV: No chest pain, no dyspnea on exertion, no palpitations GI: +right upper quadrant pain, no constipation : No frequency, no urgency and no dysuria MUSC/SKEL No joint pain, no back pain SKIN: No rash NEURO: No weakness, no headache Past Medical History Past Medical History NEUROLOGIC: Positive Dementia, Meningitis, Seizures and Migraine; Negative Neurological Disorders CARDIAC: Positive Hypertension; Negative Cardiac Disorders or Congestive Heart Failure RESPIRATORY: Positive Sleep Apnea; Negative Chronic Obstructive Pulmonary Disease (COPD) or Asthma GASTROINTESTINAL: Positive Pancreatitis, Gall Bladder Disease, Diverticulosis, Hiatal Hernia, Gastroesophageal Reflux Disease and Obesity GENITOURINARY: Negative Genitourinary Disorders or Renal Disease REPRODUCTIVE: Positive Previous Pregnancies; Negative Endometriosis or Pelvic Inflammatory Disease MUSCULOSKELETAL: Positive Musculoskeletal Disorders and Fibromyalgia ENT: Negative Cataracts, Glaucoma, Blind, Retinal Detachment, Macular Degeneration, Ear Infection, Deafness or Eye Prosthesis ENDOCRINE: Positive Endocrine Disorders, Hypothyroidism and Syndrome of Inappropriate Antidiuretic Hormone (SIADH); Negative Diabetes Mellitus Type 1 or Diabetes Mellitus Type 2 HEMATOLOGIC: Positive Anemia; Negative Blood Disorders or Sickle Cell Disease PSYCHO/SOCIAL: Positive Bipolar Disorder, Depression and Anxiety OTHER HISTORY: Positive Hospitalization, Blood Transfusions and Chicken Pox; Negative Autoimmune Disease, Down Syndrome, Developmental Delay, Falls, Blood Transfusion Reaction, Anesthesia Reactions, Organ Transplant or Cancer Family History FAMILY HISTORY: Positive Family Psychiatric Problems and Family Surgery; Negative Family Neurologic Problems, Family Respiratory Disorders, Family Cardiac Disorders, Family Gastrointestinal Problems, Family Cancer or Family Anesthesia Reaction Surgical History SURGICAL: Positive Tonsillectomy, Abdominal Surgery, Gastrostomy and Hysterectomy; Negative Cardiac Surgery, Endocrine Surgery, Thyroidectomy or Organ Transplant Social History SMOKING STATUS: Never smoker SUBSTANCE USE: does not use ED Exam Narrative Physical exam: GENERAL APPEARANCE: Well hydrated, well nourished, in no acute distress. VITALS: All vitals were reviewed and the pulse ox is 98% on room air which is normal according to my interpretation. HEENT: Normocephalic, atramatic, EOMI, EACs are patent. There is no bulge or retraction. Throat without erythema or exudate. Moist oromucosa. No jaundice NECK: Supple, no JVD or bruits. CARDIOVASCULAR: Heart regular without S3-S4 or murmur. No rubs or gallops. LUNGS/CHEST: Clear to auscultation bilaterally. No rales, rhonchi, or wheezing. Normal inspection. ABDOMEN: Soft, RUQ tenderness at/near the incisional site, tenderness throughout abdomen, incision appears red without drainage, with normal bowel sounds. No pulsatile masses. No rebound, rigidity, or guarding. No incarcerated hernia. EXTREMITIES: Normal inspection and palpation. No edema, clubbing, or cyanosis. Intact CSM SKIN: Warm and dry without rashes. Normal inspection. MUSCULOSKELETAL: Normal inspection. No gross deformity, full ROM all extremities NEURO: Alert and oriented x3. Cranial nerves II through XII grossly intact. There are no other motor or sensory deficits noted. PSYCHIATRIC: Normal mood and affect. No psychosis. Course Quality Measures none Orders Category Date Time Status Bedside COVID-19 Antigen Test NOW Care 04/30/24 08:[address] Screening NOW Care 04/30/24 06:[address] abdomen pelvis w con Stat Exams 04/30/24 06:15 Completed CBC Stat Lab 04/30/24 06:35 Completed CMP [Comprehensive Metabolic Panel] Stat Lab 04/30/24 06:35 Completed Influenza A & B Rapid Panel Stat Lab 04/30/24 08:30 Completed Lipase Stat Lab 04/30/24 06:35 Completed UA, C/S IF [Urinalysis, C/S if Indicated] Stat Lab 04/30/24 08:26 Completed Urine Culture Stat Lab 04/30/24 08:26 Received Morphine Inj Med 04/30/24 05:35 Discontinued 4 mg IVP X1 ONE Ondansetron Inj [Zofran Inj] Med 04/30/24 05:36 Discontinued 4 mg IV X1 ONE Piper/Tazo 3.375 gm [Zosyn] Med 04/30/24 10:15 Discontinued 3.375 gm in 50 ml IV X1 Sodium Chloride 0.9% 1000 ml [Ns] 1,000 ml Med 04/30/24 06:15 Active IV 125 mls/hr Vital Signs Vital signs: Vital Signs Temperature 98.4 F 04/30/24 04:59 Pulse Rate 81 04/30/24 04:59 Respiratory Rate 18 04/30/24 04:59 Blood Pressure 139/98 H 04/30/24 04:59 Pulse Oximetry (%) 97 04/30/24 04:59 Oxygen Delivery Method Room Air 04/30/24 04:59 Abdominal Pain MDM MDM Narrative MDM Narrative:: Kellie Howard am scribing for and in the presence of Dr. Duenas. Patient had a right sided hemicolectomy with diverting ileostomy done by Dr. Ross in December of this year followed by ileostomy reversal done at the beginning of this month by Dr. Ross. She had just been discharged from the hospital a few days ago. Brought back by family member for having increasing abdominal pain and ran out of painkiller. On exam she is most tender in the right upper quadrant where her incisions are with some redness and swelling in the skin adjacent to the incision. The vacuum is in place and appears to be functioning well. WBC count of 23,000. CMP and lipase are negative. UA is 3+ positive for bacteria. COVID-[address] negative[address] is negative. CT abdomen and pelvic was reviewed and interpreted by me: I see a lot of stranding especially in the right upper quadrant. Status post cholecystectomy. No free air. No free fluid. No bowel obstruction. Please also see Dr. Demarcus Sprague's reading In the emergency department the patient was given IV Zosyn antibiotic along with IV fluid and medication for pain. 10:20 AM, I spoke to and discussed with Dr. Ross, general surgeon. She was made aware of the physical finding, lab results and CT report and agreed to consult on admission. 10:30 AM, I spoke to and discussed with Dr. Fuentes, resident of Dr. Mahoney attending hospitalist on-call. She agreed to admit the patient for further evaluation and treatment. Thank you Critical care time is approximately 35 minutes excluding any procedure. The high probability of sudden, clinically significant deterioration in the patient?s condition required the highest level of my preparedness to intervene urgently. The services I provided to this patient were to treat and/or prevent clinically significant deterioration. Services included the following: chart data review, reviewing nursing notes and/or old charts, documentation time, training consultant collaboration regarding findings and treatment options, medication orders and management, direct patient care, vital sign assessments and ordering, interpreting and reviewing diagnostic studies and lab tests. Aggregate critical care time includes only time during which I was engaged in work directly related to the patient?s care, as described above, whether at bedside or elsewhere in the Emergency Department. It did not include time spent performing other reported procedures or the services of residents, students, nurses or physician assistants. Patient data External records reviewed:: [facility] previous records Clinical information provided by:: patient Social determinants that could affect healthcare access:: none Patient has the following chronic illnesses:: hypertension, s/p right sided hemicolectomy with diverting ileostomy by Dr. Flynn 02/2024, ileostomy reversal on 04/09/[address] Flynn How is presenting disease/condition affected by chronic disease/condition?: exacerbated by Evaluation data The following diagnostics were reviewed and interpreted by me:: lab results and radiology exam(s) Lab and/or radiology exams considered but not ordered:: None Interpretation Summary: Ordering Physician: Daryl Duenas MD Date of Service: 04/30/24 Procedure(s): CT abdomen pelvis w con Accession Number(s): [id number] cc: Demarcus Sprague MD; NO PRIMARY/FAMILY,PHYSICIAN; Daryl Duenas MD~ Examination: CT abdomen with intravenous contrast CT pelvis with intravenous contrast 2-D coronal reconstructions 2-D sagittal reconstructions Date and time of exam:April 30, 2024 0857 hrs. Comparison April 11, 2024 Indications: Status post reversal ileostomy with generalized abdominal pain today. CTDI: vol (mGy) 22.5 DLP: (mGycm) 730 Technique: Multiple axial sections of the abdomen and pelvis have been obtained. 64 slice high-resolution scanner used. 3 mm axial sections have been obtained, post intravenous injection 60 cc [id number] 2-D sagittal, coronal reconstructions obtained. Low dose protocols were performed. One or more of the following dose reduction techniques were used; automated exposure control, adjustment of the mA and/or KV according to patient size, use of iterative reconstruction technique. Findings: Bibasilar pneumonia with moderate bilateral pleural effusions Mild to moderate enlargement cardiac contour No focal liver or splenic lesions Absent gallbladder Anasarca No pancreatic mass Normal adrenal glands Moderate bilateral renal parenchymal scar formation Increased radiodensity throughout the peritoneum, peritonitis pattern Bowel obstruction No abdominal or pelvic abscess Contracted urinary bladder with wall thickening Prominent osteopenia with advanced degenerative disc disease L2-L3, L3-L4, L4-L5 Impression: Bibasilar pneumonia Moderate bilateral pleural effusions Anasarca Moderate bilateral renal parenchymal scar formation Cystitis pattern Increased radiodensity throughout the peritoneum, peritonitis pattern versus postoperative change, however no abdominal or pelvic abscess Dictated By: Demarcus Sprague MD Signed By: <Electronically signed by Demarcus Sprague MD in OV> 04/30/24 0958 Medications / Prescriptions Medications or Prescriptions considered but not ordered:: None Medication administrations:: Medication Administration History Sodium Chloride (Ns) 1,000 mls @ 125 mls/hr IV .Q8H ONE Stop: 04/30/24 14:14 Last Admin: 04/30/24 08:08 Dose: 125 mls/hr Documented By: VG Discontinued Medications Piperacillin/Tazobactam/Dextrose (Zosyn) 3.375 gm in 50 mls @ 100 mls/hr IV X1 ONE Stop: 04/30/24 10:44 Last Admin: 04/30/24 10:22 Dose: 100 mls/hr Documented By: TM Morphine Sulfate (Morphine Sulf Inj 10 Mg/Ml Vial) 4 mg IVP X1 ONE Stop: 04/30/24 05:36 Last Admin: 04/30/24 05:43 Dose: 4 mg Documented By: KD Ondansetron HCl (Ondansetron Inj 2 Mg/Ml Inj 2 Ml) 4 mg IV X1 ONE; Protocol Stop: 04/30/24 05:37 Last Admin: 12/22/24 05:50 Dose: 4 mg Documented By: KD See above Consultations Consultation(s) initiated? (list below): Yes Consultation #1 (Physician, Specialty, Details): I spoke with hospitalist regarding admission as noted above. Time: 10:36 Diagnosis Differential diagnosis abdominal pain: abdominal pain, diverticulitis, small bowel obstruction and other (Peritonitis ) Most likely diagnosis given after review of the tests above:: Abdominal pain Peritonitis UTI Pneumonia Admission Indicated Admission indicated?: indicated Admission Request Was there a request for admission?: Yes Admission Attestation Admission request attestation: Discussed case with [] from Hospitalist service regarding admission. Discussed patients ED course, exam findings, labs, and radiology results. The Hospitalist [agrees,declines] to accept the patient for admission. Disposition Plan Disposition Plan: Admit Critical Care Time Critical Care Time Critical Care Time: Yes Total Critical Care Time (min.): 35 Attestation: The high probability of sudden, clinically significant deterioration in the patient's condition required the highest level of my preparedness to intervene urgently. The services I provided to this patient were to treat and/or prevent clinically significant deterioration. Services included the following: chart data review, reviewing nursing notes and/or old charts, documentation time, training consultant collaboration regarding findings and treatment options, medication orders and management, direct patient care, vital sign assessments and ordering, interpreting and reviewing diagnostic studies and lab tests. Aggregate critical care time includes only time during which I was engaged in work directly related to the patient's care, as described above, whether at bedside or elsewhere in the Emergency Department. It did not include time spent performing other reported procedures or the services of residents, students, nurses or physician assistants. Discharge Plan Plan Patient Disposition: Admit Acute Care w/in Hospital Disposition Comment: Stable for admit Prescriptions/Referrals Prescriptions/Med Rec: No Action nortriptyline 10 mg Capsule 10 mg PO DAILY divalproex [Depakote] 250 mg Tablet,Delayed Release (Dr/Ec) 250 mg PO DAILY montelukast 10 mg Tablet 10 mg PO DAILY ondansetron HCl 8 mg Tablet 8 mg PO Q6HR PRN (Reason: Nausea And Vomiting) levothyroxine 137 mcg tablet 137 mcg PO QDAY Patient Comments: take 1 tablet by mouth every morning ON AN EMPTY STOMACH metoprolol tartrate 25 mg tablet 25 mg PO BID Patient Comments: take 1 tablet by mouth twice a day atorvastatin 10 mg Tablet 10 mg PO QPM famotidine [Pepcid] 20 mg Tablet 20 mg PO Q12H hydroxyzine HCl 25 mg Tablet 25 mg PO Q12HR PRN (Reason: Anxiety) ergocalciferol (vitamin D2) [Vitamin D2] 1,250 mcg (50,000 unit) Capsule 1,250 mcg PO QOWEEK pantoprazole 40 mg Tablet,Delayed Release (Dr/Ec) 40 mg PO QDAY 30 Days Qty: 30 0RF valproic acid (as sodium salt) 250 mg/5 mL (5 mL) Solution 750 mg PO BID 30 Days Qty: 900 2RF oxycodone-acetaminophen [Percocet] 10-325 mg Tablet 10 - 325 tab PO Q6H 6 Days Qty: 24 0RF Referrals: No Primary/Family,Physician [Primary Care Provider] - In 1 week Problem List Clinical Impression: Abdominal pain, Peritonitis, Urinary tract infection, Pneumonia, Pleural effusion Patient/Caregiver Discharge Instructions Print Language: Comoran Stand Alone Forms: [facility] Award Info., Patient Portal Info Letter
[2024-04-30 12:01] LABS: Magnesium 1.4 mg/dL (1.6-2.6)
--- NOTE | 2024-04-30 12:58 | PD.SURCONS ---
HPI Consult details History of present illness: 78F with HTN, CHF, hypothyroidism who underwent right hemicolectomy with diverting ileostomy for fecal contamination 12/19, followed by ileostomy reversal 04/09 brought to ER due to abdominal pain. Pt's daughter reports she ran out of her pain meds and was awaiting an appt with her PCP 05/01 for a refill, but pain became severe last night prompting her to bring for evaluation. She denies any nausea/vomiting or fever, she has been eating a bit better than when she was in the hospital and having regular BMs She was last seen by home health Fri who changed her wound vac dressing and noted that the wound is improving Review of Systems Review of Systems ROS Unobtainable: All systems reviewed & no additional complaints except as documented Meds Home Medications and Allergies Home Medications ?Medication ?Instructions ?Recorded ?Confirmed ?Type divalproex 250 mg tablet,delayed 250 mg PO DAILY 12/18/23 04/12/24 History release (Depakote) montelukast 10 mg tablet 10 mg PO DAILY 12/18/23 04/12/24 History nortriptyline 10 mg capsule 10 mg PO DAILY 12/18/23 04/12/24 History ondansetron HCl 8 mg tablet 8 mg PO Q6HR PRN Nausea And 01/24/24 04/12/24 History Vomiting levothyroxine 137 mcg tablet 137 mcg PO QDAY 03/26/24 04/12/24 History metoprolol tartrate 25 mg tablet 25 mg PO BID 03/26/24 04/12/24 History atorvastatin 10 mg tablet 10 mg PO QPM 04/05/24 04/12/24 History ergocalciferol (vitamin D2) 1,250 1,250 mcg PO QOWEEK 04/12/24 04/12/24 History mcg (50,000 unit) capsule (Vitamin D2) famotidine 20 mg tablet (Pepcid) 20 mg PO Q12H 04/12/24 04/12/24 History hydroxyzine HCl 25 mg tablet 25 mg PO Q12HR PRN Anxiety 04/12/24 04/12/24 History Allergies Allergy/AdvReac Type Severity Reaction Status Date / Time haloperidol Allergy Severe Confusion Verified 03/06/24 13:18 naproxen Allergy Intermediate HIVES Verified 03/06/24 13:18 fluoxetine Allergy Unknown ANXIETY Verified 03/06/24 13:18 Exam Vital Signs Temp Pulse Resp BP Pulse Ox O2 Del Method 97.8 F 80 16 144/68 H 98 Room Air 04/30/24 10:01 04/30/24 10:01 04/30/24 10:01 04/30/24 10:01 04/30/24 10:01 04/30/24 10:01 Constitutional Constitutional: no acute distress Routine Respiratory Exam Respiratory: Present no resp distress Routine Abdominal Exam Abdominal: Present soft and wound (midline wound with vac in place to suction, minimal surrounding erythema improved from previous exams); Absent tenderness or distended Results Results: Laboratory Laboratory results: results reviewed Results: Imaging CT scan - abdomen: report reviewed and image reviewed Assessment & Plan Plan 78F with HTN, CHF, hypothyroidism who underwent right hemicolectomy with diverting ileostomy for fecal contamination 12/19, followed by ileostomy reversal 04/09, admitted with abdominal pain after running out of pain medications. Pt's leukocytosis and CT findings are noted, however on exam especially in light of her baseline exam, she is not in need of any procedural or surgical intervention. Her leukocytosis could be related to UTI and she is otherwise doing well with improving appetite and bowel function. I spoke to her daughter at length and she is comfortable with discharge home from ER, will follow up with me in 1 week
--- NOTE | 2024-04-30 13:40 | ESHP_ITS ---
<Statement entered by Mariusz Salter MD - 04/30/24 15:11> This patient is a 78-year-old female with past medical history of hypertension, CHF, hypothyroidism who underwent right hemicolectomy with diverting ileostomy for fecal contamination 12/19 followed by ileostomy reversal on 04/09 brought to the ER with abdominal pain. Patient's daughter reported that she ran out of her pain medications and was awaiting appointment with her PCP on 05/01 for refill but pain became severe last night. Patient was currently seen with a wound VAC dressing and wound appears to be improving. Patient is passing regular bowel movements and denied any nausea or vomiting or fevers. In the ED, patient was hemodynamically stable. Labs showed significant leukocytosis WBC 23.0, hemoglobin stable at 10.8. Chemistry panel was unremarkable. Mild hypomagnesemia. Urine was turbid with RBCs and WBCs with positive leukocyte esterase and bacteria. CT abdomen showed bibasilar pneumonia, moderate bilateral pleural effusion with anasarca and possible increased radiodensity throughout peritoneum.General surgery, Dr. Flynn did not recommend any surgical intervention at this point and recommended to discharge her tomorrow once pain is managed and follow-up with her as outpatient within a week. Patient received dose of Zosyn, morphine and fluids in the ED. Will keep the patient in observation manage hip pain and anticipate discharge tomorrow if pain is controlled. IV Zosyn was given for possible UTI. Bladder scan was ordered to rule out urinary retention. All labs and orders were reviewed. I saw and examined the patient, and I agree with current management stated by Dr Lita MD,PGY1. Plan of care was discussed with the attending physician and resident physician. Disclaimer: Despite multiple revisions, due to the dictation software being used, the document bellow may not be free of grammatical errors including phonetic/typographic errors. However, this does not deter from our commitment to providing health care in the patient's best interest in mind. Dr. Leslie MD, PGY 2 Documentation for date of: 04/30/24 HPI History of Present Illness Chief complaint: Abdominal Pain History of present illness: HPI: Patient is a 78-year-old female with an extensive past medical history including hypothyroidism, essential hypertension, depression, dementia, bipolar disorder, anxiety, asthma, seizure disorder and history of abdominal abscess, right hemicolectomy s/p ileostomy reversal on 04/09. Patient presented today with a chief complaint of abdominal pain. Abdominal pain started early this morning and described as severe, constant with no radiation. Patient did not take any pain medication. Denies any nausea or vomiting, diarrhea, fever, sick contacts or recent travel. Upon review patient denies any chest pain/pressure, SOB, PND, orthopnea and lower extremity swelling. Also denies any change in weight, appetite. Of note patient recently discharged after an extensive hospitalization from 03/21/2024 - 04/23/2024. 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 This was complicated by numerous pelvic abscesses and fecal peritonitis which was treated with drainage and IV antibiotics. Patient had ileostomy reversal on 04/09 and currently has wound VAC in place midline abdomen for delayed closure of abdominal wall after multiple abscesses and symmetrical complications. ED course: BP 144/68, pulse 80, RR 16, temp 97.8 F, SpO2 98% on room air. Labs significant for Hb 10.8, HCT 32.1, BUN 12, CR 0.7. Urinalysis significant for turbid appearance, positive leukocyte esterase, 522 WBC and bacteria 3+. Abdomen/pelvis CT on admission significant for increased radiodensity throughout the peritoneum possible postoperative change and cystitis. Received morphine 4 Mg x 1, ondansetron 4 Mg x 1, normal saline 1L IVF x 1 and Zosyn 3.375 g IV x 1 in the ED. Patient will be admitted to observation for complicated UTI. Review of Systems Review of Systems Narrative Review of Systems: GENERAL: Denies fever/chills or diaphoresis. HEENT: Denies headaches or visual changes. Denies discharge. Neuro: Denies unusual weakness or difficulty speaking. CARDIO: Denies chest pain or palpitations. PULM: Denies SOB, couging or wheezing. GI: As above URO: Dysuria MSK/EXT/SKIN: Denies joint/skeletal/muschle pain, issues/changes in upper or lower extremities, itchiness, or superficial pain. PSYCH: Cooperative, pleasant mood & affect. The rest of the review of systems is otherwise negative. Past Medical History Past Medical History NEUROLOGIC: Positive Dementia, Meningitis, Seizures and Migraine; Negative Neurological Disorders CARDIAC: Positive Hypertension; Negative Cardiac Disorders or Congestive Heart Failure RESPIRATORY: Positive Sleep Apnea; Negative Chronic Obstructive Pulmonary Disease (COPD) or Asthma GASTROINTESTINAL: Positive Pancreatitis, Gall Bladder Disease, Diverticulosis, Hiatal Hernia, Gastroesophageal Reflux Disease and Obesity GENITOURINARY: Negative Genitourinary Disorders or Renal Disease REPRODUCTIVE: Positive Previous Pregnancies; Negative Endometriosis or Pelvic Inflammatory Disease MUSCULOSKELETAL: Positive Musculoskeletal Disorders and Fibromyalgia ENT: Negative Cataracts, Glaucoma, Blind, Retinal Detachment, Macular Degeneration, Ear Infection, Deafness or Eye Prosthesis ENDOCRINE: Positive Endocrine Disorders, Hypothyroidism and Syndrome of Inappropriate Antidiuretic Hormone (SIADH); Negative Diabetes Mellitus Type 1 or Diabetes Mellitus Type 2 HEMATOLOGIC: Positive Anemia; Negative Blood Disorders or Sickle Cell Disease PSYCHO/SOCIAL: Positive Bipolar Disorder, Depression and Anxiety OTHER HISTORY: Positive Hospitalization, Blood Transfusions and Chicken Pox; Negative Autoimmune Disease, Down Syndrome, Developmental Delay, Falls, Blood Transfusion Reaction, Anesthesia Reactions, Organ Transplant or Cancer Family History FAMILY HISTORY: Positive Family Psychiatric Problems and Family Surgery; Negative Family Neurologic Problems, Family Respiratory Disorders, Family Cardiac Disorders, Family Gastrointestinal Problems, Family Cancer or Family Anesthesia Reaction Surgical History SURGICAL: Positive Tonsillectomy, Abdominal Surgery, Gastrostomy and Hysterectomy; Negative Cardiac Surgery, Endocrine Surgery, Thyroidectomy or Organ Transplant Social History SMOKING STATUS: Never smoker SUBSTANCE USE: does not use Past Medical History Comments PMH COMMENT: Social history: Occupational History: 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 Has 2 children Tobacco use: Denies ETHO use: Denies Illicit drug use: Denies Social History Note: lives with daughter. Requires assistance with all ADLs. At baseline patient is bedbound Exam Vital Signs Temp Pulse Resp BP Pulse Ox O2 Del Method 98.0 F 78 24 H 149/78 H 96 Room Air 04/30/24 13:26 04/30/24 13:26 04/30/24 13:26 04/30/24 13:26 04/30/24 13:26 04/30/24 13:26 Narrative Exam Constitutional Alert, oriented x 3 and mild distress. Elderly female HEENT Vision grossly intact. Patent nares. Trachea midline Respiratory Chest normal on inspection and clear auscultation bilaterally Cardiovascular S1 and S2 audible, RRR. No murmurs carotid bruit. No gross JVD. Abdominal Soft, obese and tender to palpation suprapubic region. Wound VAC dressing in place midline abdomen. BS + Genitourinary Suprapubic tenderness, no flank pain. Normal to palpation Musculoskeletal Extremities tone within normal limits. No LE edema. Neurological CN II - XII grossly intact. Extremity motor and sensation grossly intact. Skin Warm, dry and intact. No apparent lesions. Psychiatric Patient has good affect, is cooperative Results: Labs 04/30/24 06:35 04/30/24 06:35 Labs: Short CBC 04/30/24 Range/Units 06:35 WBC 23.0 H D (3.6-11.0) Thou/mm3 Hgb 10.8 L (12.0-16.0) g/dL Hct 32.1 L (36.0-46.0) % Plt Count 381 D (140-440) Thou/mm3 BMP 04/30/24 06:35 Sodium 136 Potassium 3.8 Chloride 103 Carbon Dioxide 24.7 BUN 12 Creatinine 0.7 Glucose 103 Calcium 7.5 L Liver Function 04/30/24 Range/Units 06:35 Total Bilirubin < 0.2 L (0.3-1.2) mg/dL AST 10 (0-34) U/L ALT < 7 L (10-49) U/L Alkaline Phosphatase 183 H (46-116) U/L Albumin 2.4 L (3.4-4.8) gm/dL Urine 04/30/24 Range/Units 08:26 Urine Color Yellow (Lt Yel-Yel) Urine Clarity Turbid A (Clear/Hazy) Urine pH 6.0 (5.0-7.0) Ur Specific [place] 1.014 (1.001-1.035) Urine Protein Trace (Neg - Trace) Urine Glucose (UA) Negative (Negative) Quality Measures Quality Measures none Advance care planning discussed with:: other Medications Home Medications and Allergies Home Medications ?Medication ?Instructions ?Recorded ?Confirmed ?Type divalproex 250 mg tablet,delayed 250 mg PO DAILY 12/18/23 04/12/24 History release (Depakote) montelukast 10 mg tablet 10 mg PO DAILY 12/18/23 04/12/24 History nortriptyline 10 mg capsule 10 mg PO DAILY 12/18/23 04/12/24 History ondansetron HCl 8 mg tablet 8 mg PO Q6HR PRN Nausea And 01/24/24 04/12/24 History Vomiting levothyroxine 137 mcg tablet 137 mcg PO QDAY 03/26/24 04/12/24 History metoprolol tartrate 25 mg tablet 25 mg PO BID 03/26/24 04/12/24 History atorvastatin 10 mg tablet 10 mg PO QPM 04/05/24 04/12/24 History ergocalciferol (vitamin D2) 1,250 1,250 mcg PO QOWEEK 04/12/24 04/12/24 History mcg (50,000 unit) capsule (Vitamin D2) famotidine 20 mg tablet (Pepcid) 20 mg PO Q12H 04/12/24 04/12/24 History hydroxyzine HCl 25 mg tablet 25 mg PO Q12HR PRN Anxiety 04/12/24 04/12/24 History Allergies Allergy/AdvReac Type Severity Reaction Status Date / Time haloperidol Allergy Severe Confusion Verified 03/06/24 13:18 naproxen Allergy Intermediate HIVES Verified 03/06/24 13:18 fluoxetine Allergy Unknown ANXIETY Verified 03/06/24 13:18 Visit Medications Acetaminophen (Acetaminophen 325 Mg Tablet) 650 mg PO Q4HR PRN PRN Reason: PAIN SCALE 1-3 (mild Stop: 05/30/24 12:56 Hydrocodone Bitart/Acetaminophen (Hydrocodone/Apap 5/325 Tablet) 1 tab PO Q4HR PRN PRN Reason: PAIN SCALE 4-6 (Moderate Stop: 05/05/24 12:56 Atorvastatin Calcium (Atorvastatin Calcium 10 Mg Tablet) 10 mg PO HS ASHISH Stop: 05/30/24 20:59 Hydroxyzine HCl (Hydroxyzine Hcl 25 Mg Tablet) 25 mg PO BID PRN PRN Reason: ANXIETY Stop: 05/30/24 12:14 Piperacillin/Tazobactam/Dextrose (Zosyn) 3.375 gm in 50 mls @ 12.5 mls/hr IV Q8HR ASHISH Stop: 05/08/24 14:59 Levothyroxine Sodium 112 mcg/ (Levothyroxine Sodium 25 mcg) 137 mcg PO ACBR ASHISH Stop: 05/30/24 12:14 Metoprolol Tartrate (Metoprolol Tartrate 25 Mg Tablet) 25 mg PO BID ASHISH Stop: 05/30/24 12:14 Morphine Sulfate (Morphine Sulf Inj 10 Mg/Ml Vial) 1 mg IV Q4H PRN PRN Reason: Pain Scale 4-6 (Moderate Stop: 05/05/24 12:56 Nortriptyline HCl (Nortriptyline Hcl 10 Mg Capsule (Non-Form)) 10 mg PO HS [facility] Stop: 05/30/24 20:59 Valproic Acid (Valproic Acid Syrup 250 Mg/5 Ml Udc) 750 mg PO BID [facility] Stop: 05/30/24 12:14 Discontinued Medications Hydrocodone Bitart/Acetaminophen (Hydrocodone/Apap 5/325 Tablet) 1 tab PO Q4HR PRN PRN Reason: PAIN SCALE 4-6 (Moderate Stop: 05/05/24 12:56 Sodium Chloride (Ns) 1,000 mls @ 125 mls/hr IV .Q8H ONE Stop: 04/30/24 14:14 Last Admin: 04/30/24 08:08 Dose: 125 mls/hr Piperacillin/Tazobactam/Dextrose (Zosyn) 3.375 gm in 50 mls @ 100 mls/hr IV X1 ONE Stop: 04/30/24 10:44 Last Infusion: 04/30/24 12:28 Dose: Infused Levothyroxine Sodium (Levothyroxine Sodium 125 Mcg Tablet) 137 mcg PO ACBR [facility] Stop: 05/31/24 05:59 Levothyroxine Sodium (Levothyroxine Sodium 112 Mcg Tablet) 137 mcg PO X1 ONE Stop: 04/30/24 12:05 Last Admin: 04/30/24 12:28 Dose: Not Given Morphine Sulfate (Morphine Sulf Inj 10 Mg/Ml Vial) 4 mg IVP X1 ONE Stop: 04/30/24 05:36 Last Admin: 04/30/24 05:43 Dose: 4 mg Morphine Sulfate (Morphine Sulf Inj 10 Mg/Ml Vial) 2 mg IV Q4H PRN PRN Reason: PAIN SCALE 7-10 (Severe Stop: 05/05/24 12:56 Morphine Sulfate (Morphine Sulf Inj 10 Mg/Ml Vial) 1 mg IV Q4H PRN PRN Reason: Pain Scale 4-6 (Moderate Stop: 05/05/24 12:56 Nortriptyline HCl (Nortriptyline Hcl 25 Mg Capsule) 10 mg PO HS [facility] Stop: 05/30/24 20:59 Ondansetron HCl (Ondansetron Inj 2 Mg/Ml Inj 2 Ml) 4 mg IV X1 ONE; Protocol Stop: 04/30/24 05:37 Last Admin: 04/30/24 05:50 Dose: 4 mg Assessment & Plan Plan Patient is a 78-year-old female with an extensive past medical history including hypothyroidism, essential hypertension, depression, dementia, bipolar disorder, anxiety, asthma, seizure disorder and history of abdominal abscess, right hemicolectomy s/p ileostomy reversal on 04/09. Patient presented today with a chief complaint of abdominal pain. Patient will be admitted to observation for complicated UTI. 1. Abdominal pain 2. Complicated UTI Patient presented with 1 day history of abdominal pain On exam patient had suprapubic tenderness Abdomen/pelvis CT on admission significant for increased radiodensity throughout the peritoneum possible postoperative change and cystitis. Urinalysis significant for turbid appearance, positive leukocyte esterase, 522 WBC and bacteria 3+. Received morphine 4 Mg x 1, ondansetron 4 Mg x 1, normal saline 1L IVF x 1 and Zosyn 3.375 g IV x 1 in the ED. Plan: ? Cardiac diet - Pending Urine Culture ? Ceftriaxone 1 g IV daily 3. Hypothyroidism Home medication levothyroxine 137 mcg p.o. with breakfast Plan: ? Resume home medication 4. Essential hypertension On admission patient's BP 144/68. Home medications metoprolol tartrate 25 Mg p.o. twice daily Plan: ? Resume home medication 5. Depression 6. Dementia 7. Bipolar mood disorder 8. Anxiety disorder Home medication nortriptyline 10 Mg p.o. daily, hydroxyzine 25 Mg p.o. twice daily as needed Plan: ?Resumed home medication Nortriptyline ? Resumed home medication hydroxyzine 25 Mg p.o. twice daily as needed 9. Asthma Home medication montelukast and albuterol inhaler as needed 10. Seizure disorder Home medication valproic acid 750 Mg p.o. twice daily Plan: ? Resumed home medication valproic acid 750 Mg p.o. twice daily 11. History of right hemicolectomy with diverting ileostomy s/p reversal on 04/09 12. History of pelvic abscess 13. History of fecal peritonitis 14. Delayed abdominal wall closure s/p wound VAC in place Patient has wound VAC in situ currently draining. Plan: ? Dr. Flynn, general surgeon was consulted and is closely following the case. Appreciate recommendations. Health maintenance: Disposition: Observation and IV antibiotics for UTI Diet: Cardiac Lines: pIVs GI Prophylaxis: None Thrombo Prophylaxis: Heparin 5000 SC twice daily Code status: FULL CODE Plan of care discussed with Attending Dr. Mahoney and PGY2 Dr. Leslie London MD PGY 1 Attending Provider Attestation/Addendum I have discussed and was present for the essential components of the history, physical examination, diagnosis, and treatment plan with the resident. I agree with the patient's care as documented by the resident and amended herein by me. Casey Mahoney, DO. Although this document has been carefully reviewed, there may still be some phonetic and other typographical errors. These errors are purely grammatical due to imperfections in the software program and should not be construed in any way to compromise the substance of the patient's medical care during this visit.
[2024-04-30] MEDS: LEVOTHYROXINE SODIUM 112 MCG, LEVOTHYROXINE SODIUM 25 MCG 137 MCG PO (14:43)
--- NOTE | 2024-04-30 17:11 | PC.NURSE ---
MD notified of patient experiencing frequent PVC, MD to input orders for magnesium IVPB.
[2024-04-30] MEDS: POTASSIUM CHLORIDE 10% 20 MEQ/15 ML UDC PO (17:38)
[2024-04-30] MEDS: Magnesium Sulfate 4 GM Ivpb 4 GM/50 ML BAG IV (17:38)
[2024-04-30 18:38] LABS: Phosphorous 3.5 mg/dL (2.4-5.1)
[2024-04-30] MEDS: METOPROLOL TARTRATE 25 MG TABLET PO (20:37)
[2024-04-30] MEDS: MONTELUKAST SODIUM 10 MG TABLET PO (20:40)
[2024-04-30] MEDS: VALPROIC ACID SYRUP 250 MG/5 ML UDC 750 MG PO (20:40)
[2024-04-30] MEDS: [UNRECOGNIZED DRUG - REMARK] PO (20:40)
[2024-04-30] MEDS: ATORVASTATIN CALCIUM 10 MG TABLET PO (20:40)
[2024-04-30] MEDS: HEPARIN SOD INJ 5000 UNIT/ML VIAL SC (20:48)
[2024-04-30] MEDS: Magnesium Sulfate 1 gm Ivpb 1 GM/100 ML BAG IV (22:39)
[2024-05-01] VITALS (9 sets, daily range): BP systolic 108–132; BP diastolic 54–85; PULSE 64–95; RESP 15–95; TEMP 36.3–36.9; O2SAT 95–100
[2024-05-01] MEDS: LEVOTHYROXINE SODIUM 112 MCG, LEVOTHYROXINE SODIUM 25 MCG 137 MCG PO (05:29)
[2024-05-01] MEDS: HYDROcodone/APAP 5/325 TABLET 1 TAB PO (05:32)
[2024-05-01 07:13] LABS: Basophils # (Auto) 0.1 Thou/mm3 (0.0-0.2); Basophils % (Auto) 0 % (0-2.5); Eosinophils # (Auto) 0.3 Thou/mm3 (0.0-0.5); Eosinophils % (Auto) 2 % (0-10); Hematocrit 30.2 % (36.0-46.0); Hemoglobin 9.7 g/dL (12.0-16.0); Immature Granulocytes % (Auto) 1 % (0-0); Immature Granulocytes Auto 0.11 Thou/mm3 (0.00-0.00); Lymphocytes % (Auto) 15 % (10-50); Mean Corpuscular HGB Conc 32.1 g/dl (31.0-37.0); Mean Corpuscular Hemoglobin 27.8 pg (25.0-35.0); Mean Corpuscular Volume 87 fL (80-100); Monocytes # (Auto) 1.3 Thou/mm3 (0.0-0.8); Monocytes % (Auto) 10 % (0-12); Neutrophils # (Auto) 9.3 Thou/mm3 (1.8-7.7); Neutrophils % (Auto) 72 % (37-80); Nucleated Red Blood Cell % 0 /100 WBC (0); Platelet Count 550 Thou/mm3 (140-440); RDW Standard Deviation 51.8 fL (36.4-46.3); Red Blood Count 3.49 Miln/mm3 (4.00-5.20)
[2024-05-01 07:46] LABS: Alanine Aminotransferase < 7 U/L (10-49); Albumin, Serum 2.3 gm/dL (3.4-4.8); Albumin/Globulin Ratio 0.9 (1.2-2.2); Alkaline Phosphatase 161 U/L (46-116); Anion Gap 7 (7-16); Aspartate Amino Transferase < 8 U/L (0-34); BUN/Creatinine Ratio 14 Ratio (12-20); Bilirubin,Total < 0.2 mg/dL (0.3-1.2); Blood Urea Nitrogen 10 mg/dL (9-23); Calcium 7.5 mg/dL (8.3-10.6); Calcium (Corrected) 8.9 mg/dL (8.5-10.1); Carbon Dioxide 24.4 mMol/L (20.0-31.0); Chloride 103 mMol/L (98-107); Creatinine (Component) 0.7 mg/dL (0.6-1.3); Estimated Creatinine Clearance 66.4 mL/min (>60); Globulin 2.7 gm/dL (2.3-3.5); Glucose 105 mg/dL (74-106); Magnesium 2.4 mg/dL (1.6-2.6); Osmolality,Calculated 267 (275-295); Phosphorous 3.4 mg/dL (2.4-5.1); Potassium 3.9 mMol/L (3.4-5.1); Sodium 134 mMol/L (136-145); eGFR > 60 See Note
[2024-05-01] MEDS: VALPROIC ACID SYRUP 250 MG/5 ML UDC 750 MG PO (09:02)
[2024-05-01] MEDS: HEPARIN SOD INJ 5000 UNIT/ML VIAL SC (09:03)
[2024-05-01] MEDS: METOPROLOL TARTRATE 25 MG TABLET PO (09:03)
--- NOTE | 2024-05-01 10:14 | PC.SS ---
Initial assessment: This is 78 year old female in observation for abdominal infection. Patient is alert and oriented. Patient resides at home with her daughter, Sahra Shell. Confirmed home address on facesheet. Patient's alternate medical decision maker is her daughter, Sahra Shell. Patient uses a walker and wheelchair at home. Patient is open to [facility] for wound care. Patient's PCP is Dr. Herndon. Patient follows with Dr. Zhang and Dr. Em. Patient's pharmacy of choice is, [facility] in [place]. The discharge plan was discussed and patient would like to return home and continue with [facility]. Patient will need gurney transport home. account services coordinator to remain available for further needs. D/c plan: home w/home health Next of kin: daughter, Sahra Shell
--- NOTE | 2024-05-01 12:10 | PC.SS ---
Addendum entered by JOLANTA Parra 05/01/24 12:26: Notified patient's daughter Sahra Shell. She was agreeable to receive patient home this evening. Addendum entered by JOLANTA Parra 05/01/24 12:25: Pavan CASTILLO 4:30pm. Bed nurse Aakash is aware. Original Note: SS update: patient has d/c orders to return home. Spoke with patient's daughter Sahra Shell. Informs patient and family are unable to pay for transportation home. Patient will need gurney transport home. Daughter Sahra, informs she will be available to receive patient at 5pm this evening. Contacted [facility] transport services. Inform they will give call back with ETA.
--- NOTE | 2024-05-01 18:28 | ESDS_ITS ---
<Statement entered by Ruiz Gardner MD - 05/01/24 19:35> I discussed with and supervised my co-resident involved in the care of this patient. I agree with the assessment and plan as documented above. Ruiz Gardner,PGY-3 Disclaimer: Despite multiple revisions, due to the dictation software being used, the document below may not be free of grammatical errors including phonetic/typographic errors. However, this does not deter from our commitment to providing health care in the patient's best interest in mind. Planned Discharge Date 05/01/24 DS: Providers Provider Date of admission: 04/30/24 13:01 Primary care physician: Physician No Primary/Family Admitting Provider: Real Mahoney DO Attending Provider on Admission: Real Mahoney DO Consults: 04/30/24 11:38 Consult to General Surgery Stat Comment: Consulting Provider: Adeline Flynn Attending Provider on DC: Sangeeta Edge MD Discharging Provider: Sangeeta Edge MD DS: Diagnosis Problem List Completed Was Problem List Reviewed/Reconciled?: Yes Hospital Course Hospital Course Hospital course: The patient is a 78-year-old female with an extensive past medical history including hypothyroidism, essential hypertension, depression, dementia, bipolar disorder, anxiety, asthma, seizure disorder and history of abdominal abscess, right hemicolectomy s/p ileostomy reversal on 04/09. Patient presented to the ED with a chief complaint of abdominal pain.Abdominal pain started conceptor 04/30/24 and was described as severe, constant with no radiation. Patient did not take any pain medication. Denied any nausea or vomiting, diarrhea, fever, sick contacts or recent travel. Patient was recently discharged after an extensive hospitalization from 2023 - 04/23/2024. Initially in December 2023 patient had a right hemicolectomy with diverting ileostomy for a cecal mass seen on CT scanning. This was complicated by numerous pelvic abscesses and fecal peritonitis which was treated with drainage and IV antibiotics. Patient had ileostomy reversal on 04/09 and currently has wound VAC in place midline abdomen for delayed closure of abdominal wall after multiple abscesses and symmetrical complications. In the ED patient was hemodynamically stable, UA was significant for signs of UTI. Abdomen/pelvis CT on admission significant for increased radiodensity throughout the peritoneum possible postoperative change and cystitis. Patient was admitted to observation for complicated UTI. Dr. Flynn was consulted, patient is not in need of any surgical intervention at this point. Patient received pain medications, fluids and was started on IV antibiotics. Her pain improved and she was discharge home. Hospital diagnoses: Abdominal pain Complicated UTI Hypothyroidism Essential hypertension Depression Dementia Bipolar mood disorder Anxiety disorder Asthma Seizure disorder History of right hemicolectomy with diverting ileostomy s/p reversal on 04/09 History of pelvic abscess History of fecal peritonitis Delayed abdominal wall closure s/p wound VAC in place Discharge recommendations: - Follow up with your PCP in 1-2 weeks - Follow up with Dr. Flynn in 1-2 weeks - Follow up with results of urine culture - Start taking Augmentin 500-125 mg 1 tablet 2 times a day for 5 days - Continue with Endocet 10-325 mg every 6 hours as needed for pain Plan of care discussed with attending Dr. Mahoney and PGY-[address] Gardner. Sangeeta Edge MD, PGY 1. Time Spent with Patient Time attestation: Total time spent providing and/or coordinating discharge services: Exam Vital Signs Temp Pulse Resp BP Pulse Ox O2 Del Method O2 Flow Rate 97.3 F 67 15 126/54 L 98 Room Air 2 05/01/24 15:49 05/01/24 15:49 05/01/24 15:49 05/01/24 15:49 05/01/24 15:49 05/01/24 15:49 04/30/24 17:12 Narrative Exam Physical Exam General: Awake and in no acute distress. Conversational and non-toxic appearing. HEENT: Normocephalic, atraumatic, mucous membranes moist. Heart: Regular rate and rhythm, no murmurs. Lungs: Clear to auscultation with no wheezing or crackles. Abdomen: Soft, nondistended, nontender, positive bowel sounds. ?No guarding or rebound tenderness. Wound VAC in place. Neurologic: Alert and oriented x3, no gross neurological deficit, and patient able to move all 4 extremities. Extremities: No edema. Skin: No rash or ecchymoses. Discharge Plan Plan Patient Disposition: HOME (Self Care) Disposition Comment: Stable for admit Care Plan Goals: Discharge recommendations: - Follow up with your PCP in 1-2 weeks - Follow up with Dr. Flynn in 1-2 weeks - Follow up with results of urine culture - Start taking Augmentin 500-125 mg 1 tablet 2 times a day for 5 days - Continue with Endocet 10-325 mg every 6 hours as needed for pain Prescriptions/Referrals Prescriptions/Med Rec: New oxycodone-acetaminophen [Endocet] 10-325 mg tablet 1 tab PO Q6H MDD 6 tabs PRN (Reason: pain) Qty: 30 0RF amoxicillin-pot clavulanate [Augmentin] 500-125 mg tablet 1 tab PO BID 5 Days Qty: 10 0RF Continued nortriptyline 10 mg Capsule 10 mg PO DAILY montelukast 10 mg Tablet 10 mg PO DAILY ondansetron HCl 8 mg Tablet 8 mg PO Q6HR PRN (Reason: Nausea And Vomiting) levothyroxine 137 mcg tablet 137 mcg PO QDAY Patient Comments: take 1 tablet by mouth every morning ON AN EMPTY STOMACH metoprolol tartrate 25 mg tablet 25 mg PO BID Patient Comments: take 1 tablet by mouth twice a day atorvastatin 10 mg Tablet 10 mg PO QPM famotidine [Pepcid] 20 mg Tablet 20 mg PO Q12H hydroxyzine HCl 25 mg Tablet 25 mg PO Q12HR PRN (Reason: Anxiety) ergocalciferol (vitamin D2) [Vitamin D2] 1,250 mcg (50,000 unit) Capsule 1,250 mcg PO QOWEEK pantoprazole 40 mg Tablet,Delayed Release (Dr/Ec) 40 mg PO QDAY 30 Days Qty: 30 0RF valproic acid (as sodium salt) 250 mg/5 mL (5 mL) Solution 750 mg PO BID 30 Days Qty: 900 2RF Discontinued divalproex [Depakote] 250 mg Tablet,Delayed Release (Dr/Ec) 250 mg PO DAILY oxycodone-acetaminophen [Percocet] 10-325 mg Tablet 10 - 325 tab PO Q6H 6 Days Qty: 24 0RF Referrals: Adeline Flynn MD [Physician] - (You will receive a phone call to confirm a follow-up appt with me on May 08) No Primary/Family,Physician [Primary Care Provider] - Patient/Caregiver Discharge Instructions Discharge Activity: as per physical therapy Education Materials: What Is Pneumonia?, Understanding Urinary Tract ..., When You Have Pneumonia Print Language: [place] Stand Alone Forms: Alison Award Info., Patient Portal Info Letter, Work/Release Restrictions Discharge Order Discharge Orders: Discharge (Routine); Ordered 05/01/24 Ordered By: Ruiz Gardner Quality Discharge Quality Measures VTE prophylaxis Attestestation MD Attestation I have discussed and was present for the essential components of the discharge history, physical examination, diagnosis, and discharge treatment plan with the resident. I agree with the patient's discharge care as documented by the resident and amended herein by me. Casey Mahoney, DO. The patient understood all discharge instructions, all questions were answered satisfactorily. The patient was instructed to return to the Emergency Department is symptoms worsened or persisted. Patient was stable, afebrile, tolerating p.o. intake at time of discharge. Pain was well-controlled. Urine cultures demonstrated garg sensitive E. coli, patient sent out with a course of Augmentin, see details above. We notified the patient's daughter of the plan for discharge and she agreed Although this document has been carefully reviewed, there may still be some phonetic and other typographical errors. These errors are purely grammatical due to imperfections in the software program and should not be construed in any way to compromise the substance of the patient's medical care during this visit.
--- NOTE | 2024-05-03 10:35 | PC.CM ---
Addendum entered by Melissa Mendoza RN 05/05/24 11:34: [facility] was able to put patient back on the resume schedule. Original Note: We did not get resume orders from the doctor when patient was discharged. Patient is [facility] to [facility]. I sent the paperwork from this visit. I was not able to get orders because the doctor is not working that was on the day of discharge. I asked [facility] to follow up with PCP for resume orders.
== END 2024-05-01 17:00 | disposition home health service (06) ==
LOC: SERX 10:47 → SERHOLD 13:15 → S3NX 13:42
PROVIDERS: Student in an Organized Health Care Education/Training Program; Admitting Provider Student in an Organized Health Care Education/Training Program; Emergency Provider Emergency Medicine; Visit Provider Student in an Organized Health Care Education/Training Program
DX: N39.0 Urinary tract infection, site not specified (principal); G47.30 Sleep apnea, unspecified; H40.9 Unspecified glaucoma; G40.909 Epilepsy, unspecified, not intractable, without status epilepticus; F31.9 Bipolar disorder, unspecified; I50.9 Heart failure, unspecified; I11.0 Hypertensive heart disease with heart failure; J18.9 Pneumonia, unspecified organism; J45.909 Unspecified asthma, uncomplicated; K21.9 Gastro-esophageal reflux disease without esophagitis; M79.7 Fibromyalgia; F03.94 Unspecified dementia, unspecified severity, with anxiety; F03.93 Unspecified dementia, unspecified severity, with mood disturbance; E66.9 Obesity, unspecified; E03.9 Hypothyroidism, unspecified; Z68.27 Body mass index [BMI] 27.0-27.9, adult
CPT/HCPCS: 36415; 74177; 80053; 81001; 83690; 83735; 84100; 85025; 87077; 87086; 87186; 87502; 87811; 96365; 96366; 96372; 99285; A4649; G0378; J1643; J2270; J2405; J2543; J3475; J7030; Q9967; A9270; J1644

== ENCOUNTER 2024-05-08 14:24 | Outpatient (AMB) | payer OTHER, SELFPAY ==
[2024-05-08 14:36] VITALS: BP 140/64; PULSE 60; RESP 16; TEMP 36.5; O2SAT 93
--- NOTE | 2024-05-08 14:36 | PD.GSCLVISIT ---
Vital Signs - [facility] 05/08/24 14:36 Height 1.52 m Height Method Stated BP 140/64 H Blood Pressure Source Automatic Cuff Blood Pressure Location Left Upper Arm Position Sitting Respiration 16 Pulse 60 Pulse Source Monitor Temp 97.7 F Temp Source Temporal Artery Scan Pulse Oximetry (%) 93 L Oxygen Delivery Method Room Air Med/Allergies Allergies & Medications Allergies haloperidol Allergy (Severe, Verified 05/08/24 14:37) Confusion naproxen Allergy (Intermediate, Verified 05/08/24 14:37) HIVES fluoxetine Allergy (Unknown, Verified 05/08/24 14:37) ANXIETY Medication Reconciliation montelukast 10 mg tablet 10 mg PO DAILY 12/18/23 [History Confirmed 05/08/24] nortriptyline 10 mg capsule 10 mg PO DAILY 12/18/23 [History Confirmed 05/08/24] ondansetron HCl 8 mg tablet 8 mg PO Q6HR PRN Nausea And Vomiting 01/24/24 [History Confirmed 05/08/24] levothyroxine 137 mcg tablet 137 mcg PO QDAY 03/26/24 [History Confirmed 05/08/24] metoprolol tartrate 25 mg tablet 25 mg PO BID 03/26/24 [History Confirmed 05/08/24] atorvastatin 10 mg tablet 10 mg PO QPM 04/05/24 [History Confirmed 05/08/24] ergocalciferol (vitamin D2) 1,250 mcg (50,000 unit) capsule (Vitamin D2) 1,250 mcg PO QOWEEK 04/12/24 [History Confirmed 05/08/24] famotidine 20 mg tablet (Pepcid) 20 mg PO Q12H 04/12/24 [History Confirmed 05/08/24] hydroxyzine HCl 25 mg tablet 25 mg PO Q12HR PRN Anxiety 04/12/24 [History Confirmed 05/08/24] pantoprazole 40 mg tablet,delayed release 40 mg PO QDAY 30 days #30 tabs 04/17/24 [Rx Confirmed 05/08/24] valproic acid (as sodium salt) 250 mg/5 mL (5 mL) oral solution 750 mg (15 mL) PO BID 30 days #900 mL 04/17/24 [Rx Confirmed 05/08/24] oxycodone-acetaminophen 10 mg-325 mg tablet (Endocet) 1 tab PO Q6H PRN pain #30 tabs 04/30/24 [Rx Confirmed 05/08/24] MA Intake Visit Data Collection New Patient or Established: Established Patient (seen at [facility] within 3 years) Seen by Clinical Staff ONLY (RN/GASTON): No Reason for Visit:: F/U BOWEL Pain Present Currently: Yes Pain Location: Abdomen Pain scale:: 9 Pain Scale Used: Hardy-Grant/Numerical Transition Manager Required: No PCP or OBGYN visit in last 3 months: Yes Smoking Status Smoking Status: Never smoker Immunization / Flu Flu Vaccine in the Last 12 Months: No Flu Vaccine Exclusion Criteria: Refused by Patient Past Medical History Past Medical History NEUROLOGIC: Positive Dementia, Meningitis, Seizures and Migraine; Negative Neurological Disorders CARDIAC: Positive Hypertension; Negative Cardiac Disorders or Congestive Heart Failure RESPIRATORY: Positive Sleep Apnea; Negative Chronic Obstructive Pulmonary Disease (COPD) or Asthma GASTROINTESTINAL: Positive Pancreatitis, Gall Bladder Disease, Diverticulosis, Hiatal Hernia, Gastroesophageal Reflux Disease and Obesity GENITOURINARY: Negative Genitourinary Disorders or Renal Disease REPRODUCTIVE: Positive Previous Pregnancies; Negative Endometriosis or Pelvic Inflammatory Disease MUSCULOSKELETAL: Positive Fibromyalgia ENT: Negative Cataracts, Glaucoma, Blind, Retinal Detachment, Macular Degeneration, Ear Infection, Deafness or Eye Prosthesis ENDOCRINE: Positive Endocrine Disorders, Hypothyroidism and Syndrome of Inappropriate Antidiuretic Hormone (SIADH); Negative Diabetes Mellitus Type 1 or Diabetes Mellitus Type 2 HEMATOLOGIC: Positive Anemia; Negative Blood Disorders or Sickle Cell Disease PSYCHO/SOCIAL: Positive Bipolar Disorder, Depression and Anxiety OTHER HISTORY: Positive Hospitalization, Blood Transfusions and Chicken Pox; Negative Autoimmune Disease, Down Syndrome, Developmental Delay, Falls, Blood Transfusion Reaction, Anesthesia Reactions, Organ Transplant or Cancer Family History FAMILY HISTORY: Positive Family Psychiatric Problems and Family Surgery; Negative Family Neurologic Problems, Family Respiratory Disorders, Family Cardiac Disorders, Family Gastrointestinal Problems, Family Cancer or Family Anesthesia Reaction Surgical History SURGICAL: Positive Hysterectomy; Negative Thyroidectomy or Organ Transplant Social History SMOKING STATUS: Smoking status: Never smoker ALCOHOL: Alcohol Intake: Never HOUSING: Housing: House LIVES WITH: Lives With: Family HPI HPI Narrative 78F with HTN, CHF, hypothyroidism who underwent right hemicolectomy with diverting ileostomy for fecal contamination 12/19, followed by ileostomy reversal 04/09/24 here for planned follow up. Per daughter pt is still very weak, not eating much but continuing to have frequent BMs (3-4 per day, sometimes loose) and having difficulty sleeping as well as hallucinations. She has an appt with her PCP this week to discuss ambien which she had been taking in the hospital and also has PT in place at home along with wound care. Pt reports abdominal pain during dressing changes which is stable ROS Review of Systems Systems Reviewed: All systems reviewed, normal except as documented Objective/Exam General General Appearance: alert, cooperative and well groomed Resp Respiratory exam: Absent respiratory distress Abdominal Abdominal exam: Present soft and incision (midline and R stoma incisions healing well with beefy red granulation tissue, no surrounding erythema, no fluctuance or tenderness); Absent distention or tenderness Assessment & Plan Diagnosis / Problem List (1) Mass of cecum: Status: Acute Assessment & Plan: 78F with HTN, CHF, hypothyroidism who underwent right hemicolectomy with diverting ileostomy for fecal contamination 12/19, followed by ileostomy reversal 04/09/24 here for planned follow up. Pt is recovering well from a surgical standpoint but is understandably deconditioned after months in and out of the hospital, is encouraged to work with PT as much as possible Plan: F/u in 3 weeks Advanced Care Planning Advance care planning discussed with:: other Office Procedures GNS Level of Care Nursing/Assessment Patient Status: Established Patient Nursing Assessment/Reassesment: Medication Reconciliation, Update PMH in EMR and Vital Signs Coordination of Care: Complex Care and Chronic Disease 1-5, Education Complex Pt/Fam, 1 Ins Authorization and Staff clarify orders Special Needs: Transportation needs Established Patient Charge Established Patient Point Assignment: 115 Established Patient Point Charge: EP Level 3 (80-115) Patient Portal Questionaires Social History Living Situation History Housing: House Housing Other:: with daughter Tobacco History Smoking Status: Never smoker Alcohol History Alcohol Intake: Never Review of Systems Report any current symptoms Only answer those that you have currently: Past Medical History Past Medical History Have you ever been diagnosed with any of the following: Neurological Problems Dementia: Yes Meningitis: Yes Seizures: Yes Migraine: Yes Cardiology Problems Congestive Heart Failure: No Hypertension: Yes Respiratory Problems Chronic Obstructive Pulmonary Disease (COPD): No Asthma: No Sleep Apnea: Yes Stomache/Intestinal Problems Pancreatitis: Yes Gall Bladder Disease: Yes Diverticulosis: Yes Hiatal Hernia: Yes Gastroesophageal Reflux Disease: Yes Obesity: Yes Genital/Urinary Problems Renal Disease: No Reproductive Problems Endometriosis: No Pelvic Inflammatory Disease: No Previous Pregnancies: Yes Musculoskeletal Problems Fibromyalgia: Yes Head,Eye,Nose,Throat Problems Cataracts: No Glaucoma: No Blind: No Retinal Detachment: No Macular Degeneration: No Chronic Ear Infections: No Deafness: No Eye Prosthesis: No Endocrine Problems Diabetes Mellitus Type 1: No Diabetes Mellitus Type 2: No Hypothyroidism: Yes Syndrome of Inappropriate Antidiuretic Hormone: Yes Blood Problems Anemia: Yes Sickle Cell Disease: No Psychologic Problems Bipolar Disorder: Yes Depression: Yes Anxiety: Yes Other Problems Hospitalization: Yes Autoimmune Disease: No Down Syndrome: No Developmental Delay: No Falls: No Blood Transfusions: Yes Blood Transfusion Reaction: No Anesthesia Reactions: No Organ Transplant: No Chicken Pox: Yes Cancer: No Surgical History Hysterectomy: Yes Thyroidectomy: No
== END 2024-05-08 15:06 | disposition home or self-care (01) ==
LOC: HODSRG 14:24
PROVIDERS: Supervising Provider Surgery; Visit Provider Surgery
DX: Z48.815 Encounter for surgical aftercare following surgery on the digestive system (principal)
CPT/HCPCS: 99213; G0463